=== PATIENT | male | born 1955 | race Caucasian/White ===

== ENCOUNTER 2016-12-07 10:07 | Inpatient (IN) | payer OTHER ==
[~2016-12-07] VITALS: Ht 177.8 cm; Wt 231.0 kg
[~2016-12-07 10:07] MED LIST: ASCO10006 PO; C250T PO; CALC-6 PO; CALC-817 PO; CAPT100T2 PO; CEPH500C PO; CHOL10002 PO; DOXY-233 PO; FISH1CAP15 PO; FLUC150T2 PO; FNT50TD TD; FURO80TA3 PO; GABA800T2 PO; GEMF600T3 PO; GLYB5TAB6 PO; GMFB600T PO; HUM100VI15 SQ; HUM100VI6 SQ; HYDR-2890 PO; HYDR-3820 PO; INDM25C PO; INSULIN NPH SQ; IPRA3AMP INH; KCL20TCR PO; LEVO750T39 PO; MELA1TAB15 PO; MELO15TA39 PO; METF1000 PO; MORP-33 PO; MORP15TA PO; MORP15TA8 PO; MTF500T PO; MULT-608 PO; MULT1TAB69 PO; NEBU-113 MC; OMEG-109 PO; POTA10TA10 PO; POTASSIUM CHL PO; REG; VITA1TAB98 PO; VITA400T7 PO; VITAMIN B COMPLEX; [UNRECOGNIZED DRUG - OTHER]; [UNRECOGNIZED DRUG - OTHER] SQ
[2016-12-07 10:42] LABS: BASOPHILS % (AUTO) 1 % (0-10); EOSINOPHILS # (AUTO) 0.4 10^3/uL (0.0-0.3); EOSINOPHILS % (AUTO) 5 % (0-10); LYMPHOCYTES # (AUTO) 0.8 X 10^3 (1.0-4.0); LYMPHOCYTES % (AUTO) 11 % (12-44); MEAN CORPUSCULAR HEMOGLOBIN 27 PG (25-34); MEAN CORPUSCULAR HGB CONC 28 G/DL (32-36); MEAN CORPUSCULAR VOLUME 94 FL (80-99); MONOCYTES # (AUTO) 0.6 X 10^3 (0.0-1.0); MONOCYTES % (AUTO) 8 % (0-12); NEUTROPHILS # (AUTO) 5.8 X 10^3 (1.8-7.8); NEUTROPHILS % (AUTO) 76 % (42-75); PLATELET COUNT 185 10^3/uL (130-400); RED BLOOD COUNT 4.71 10^6/uL (4.35-5.85); RED CELL DISTRIBUTION WIDTH 14.7 % (10.0-14.5); WHITE BLOOD COUNT 7.7 10^3/uL (4.3-11.0)
--- NOTE | 2016-12-07 10:52 | Diagnostic Imaging Report ---
INDICATION: Peripheral edema. EXAM: Portable chest at 10:48 AM FINDINGS: There is cardiomegaly. Pulmonary vascularity is normal. The lungs are clear. IMPRESSION: Cardiomegaly without evidence of pulmonary venous hypertension. Dictated by: Dictated on workstation # [id number]
[2016-12-07 11:01] LABS: ALANINE AMINOTRANSFERASE 10 U/L (0-55); ALBUMIN 3.4 GM/DL (3.2-4.5); ANION GAP 10 MMOL/L (5-14); ASPARTATE AMINO TRANSFERASE 15 U/L (5-34); BILIRUBIN,TOTAL 0.6 MG/DL (0.1-1.0); BLOOD UREA NITROGEN 17 MG/DL (7-18); BUN/CREATININE RATIO 14; CALCIUM 8.7 MG/DL (8.5-10.1); CARBON DIOXIDE 33 MMOL/L (21-32); CHLORIDE 96 MMOL/L (98-107); CREATININE SERUM 1.21 MG/DL (0.60-1.30); GFR ESTIMATED > 60; GLUCOSE 150 MG/DL (70-105); POTASSIUM 4.7 MMOL/L (3.6-5.0); SODIUM 139 MMOL/L (135-145); TOTAL PROTEIN 6.6 GM/DL (6.4-8.2)
--- NOTE | 2016-12-07 12:08 | ED Cardiac General ---
History of Present Illness General Chief Complaint: Cardiac/General Problems Stated Complaint: FLUID RETENTION Nursing Triage Note: PT REPORTS INCREASE IN PT SWELLING "RETAINING FLUID". PT HAS HX OF CHF. PT DENIES SOA OR BREATHING DIFFICULTY. PT REPORTS SHE WORKS DURRING THE WEEK AND IS UNABLE TO GIVE PT HIS LASIX WHILE SHE IS AT WORK. Source: patient Exam Limitations: no limitations History of Present Illness Time seen by provider: 12:06 Initial Comments The patient is a morbidly morbidly obese white male. His weight is in excess of 470 pounds. He is known to have cardiomegaly and was previously said to have congestive heart failure. As far as he and his no there has been no previous myocardial infarction. He has Lasix to use at home but usually it is only done on the weekend as his works during the week. She believes that he has gained 20 or more pounds recently. He reports that he has a port and has been leaking fluid from the insertion site this past week. Timing/Duration: other Location: other (universal edema) Activities at Onset: none Prior CP/Workup: other (past history of congestive failure but no history of myocardial infarction) Associated Systoms: Shortness of Air, Weakness Allergies and Home Medications Allergies Coded Allergies: aspirin (Verified Adverse Reaction, Intermediate, CHEST PAIN, 01/22/13) Home Medications Ascorbic Acid 1,000 Mg Tablet, 1,000 MG PO DAILY, (Reported) Calcium Carbonate/Vitamin D3 1 Each Tablet, 1 TAB PO DAILY, (Reported) Captopril 100 Mg Tablet, 100 MG PO BID, (Reported) Furosemide 80 Mg Tablet, 80 MG PO DAILY, (Reported) Gabapentin 800 Mg Tablet, 800 MG PO TID, (Reported) Gemfibrozil 600 Mg Tablet, 600 MG PO BID, (Reported) Glyburide 5 Mg Tablet, 5 MG PO BID, (Reported) Hydrocodone/Acetaminophen 1 Each Tablet, 2 TAB PO Q6H PRN for PAIN, (Reported) Insulin NPH Hum/Reg Insulin Hm 100 Unit/1 Ml Vial, 100 UNITS SQ HS, (Reported) Insulin NPH Hum/Reg Insulin Hm 100 Unit/1 Ml Vial, 100 UNIT SQ DAILY PRN for BS ABOVE 150, (Reported) Ipratropium/Albuterol Sulfate 3 Ml Ampul.neb, 3 ML INH RTQ4HR PRN for SHORTNESS OF BREATH, #30 Prescribed by: NITO TREVIÑO on 12/28/15 1046 Levofloxacin 750 Mg Tablet, 750 MG PO DAILY@1100, #5 Prescribed by: NITO TREVIÑO on 12/28/15 1046 Melatonin/Pyridoxine 1 Each Tablet, 10 MG PO HS, (Reported) TAKES 2 (5MG) TABLETS Meloxicam 15 Mg Tablet, 15 MG PO DAILY, (Reported) Metformin HCl 1,000 Mg Tablet, 1,000 MG PO BID, (Reported) Morphine Sulfate 15 Mg Tablet, 15 MG PO BID PRN for PAIN, (Reported) Multivitamin 1 Each Tablet, 1 TAB PO DAILY, (Reported) [place]-3 Fatty Acids/Fish Oil 1 Each Capsule, 1,200 MG PO DAILY, (Reported) Potassium Chloride 10 Meq Tablet.er, 10 MEQ PO DAILY, (Reported) Review of Systems Constitutional: see HPI EENTM: No Symptoms Reported Respiratory: Shortness of Air, SOA With Exertion, SOA at Rest Cardiovascular: No Symptoms Reported Gastrointestinal: No Symptoms Reported Genitourinary: No Symptoms Reported Musculoskeletal: no symptoms reported Skin: no symptoms reported Psychiatric/Neurological: No Symptoms Reported Endocrine: No Symptoms Reported Hematologic/Lymphatic: No Symptoms Reported Past Uktehgv-Hwgvxq-Mrmeyh Hx Patient Social History Alcohol Use: Denies Use Recreational Drug Use: No Smoking Status: Former Smoker Recent Foreign Travel: No Contact w/Someone Who Travel: No Recent Infectious Disease Expo: No Recent Hopitalizations: Yes (SEPTEMBER 11) Immunizations Up To Date Tetanus Booster (TDap): Unknown PED Vaccines UTD: Yes Surgeries HX 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) Surgeries: Ear Surgery, Tonsillectomy Respiratory Hx Respiratory Disorders: No Respiratory Disorders: COPD Cardiovascular Hx Cardiac Disorders: Yes Cardiac Disorders: Chronic Edema/Swelling, High Cholesterol, Hypertension Neurological Hx Neurological Disorders: Yes (NEUROPATHY FINGERS/FEET) Neurological Disorders: Neuropathy Reproductive System Hx Reproductive Disorders: No Sexually Transmitted Disease: No HIV/AIDS: No Genitourinary Hx Genitourinary Disorders: No Genitourinary Disorders: UTI-Chronic Gastrointestinal Hx Gastrointestinal Disorders: Yes (HX OF CDIFF LAST ADMISSION) Gastrointestinal Disorders: Abdominal Hernia Musculoskeletal Hx Musculoskeletal Disorders: Yes (HERINATED CERVICAL DISK, CHRONIC BILATERAL KNEE PAIN ) Musculoskeletal Disorders: Arthritis Endocrine Hx Endocrine Disorders: Yes (TYPE II; MORBID OBESITY) Endocrine Disorders: Diabetes, Insulin dep HEENT HX ENT Disorders: No (WEARS READING GLASSES) Cancer Hx Cancer: No Psychosocial Hx Psychiatric Problems: No Integumentary HX Skin/Integumentary Disorder: Yes (CELLULITIS OF LEGS AND PANNUS ) Blood Transfusions Hx Blood Disorders: No Family Medical History Significant Family History: Heart Disease, Diabetes, Hypertension Family Medial History: Cardiovascular disease 19 MOTHER Diabetes mellitus 19 MOTHER FH: stomach cancer 19 FATHER Hypercholesterolemia Hypertension 19 MOTHER Kidney disease Myocardial infarction 19 MOTHER Osteoporosis 19 FATHER Physical Exam Vital Signs Vital Sign - Last 12Hours 12/07/16 11:32 Temp 98.0 Pulse 100 Resp 18 B/P (MAP) 133/69 Pulse Ox 97 O2 Delivery Nasal Cannula O2 Flow Rate 4.00 Capillary Refill : Less Than 3 Seconds General Appearance: Moderate Distress HEENT: Normal ENT Inspection Neck: Full Range of Motion, Normal Inspection, Non Tender Respiratory: Chest Non Tender, No Accessory Muscle Use, No Respiratory Distress , Accessory Muscle Use, Rales, Other (hugely obese breath sounds are very poorly heard respirations appear to be shallow) Cardiovascular: Normal Peripheral Pulses, Other (unable to hear heart sounds) Gastrointestinal: Other (the abdomen is huge and tight. There is bronzy discoloration and alligator skin over the dependent portion.) Neurologic/Psychiatric: Other (the lower extremities are tightly swollen. There appears to be 4+ edema. The skin is bronzy to the knees. Again noted is alligator skin) Lymphatic: No Adenopathy Progress/Results/Core Measures Results/Orders Lab Results Laboratory Tests Test 12/07/16 10:36 Range/Units White Blood Count 7.7 4.3-11.0 10^3/uL Red Blood Count 4.71 4.35-5.85 10^6/uL Hemoglobin 12.6 L 13.3-17.7 G/DL Hematocrit 44 40-54 % Mean Corpuscular Volume 94 80-99 FL Mean Corpuscular Hemoglobin 27 25-34 PG Mean Corpuscular Hemoglobin Concent 28 L 32-36 G/DL Red Cell Distribution Width 14.7 H 10.0-14.5 % Platelet Count 185 130-400 10^3/uL Mean Platelet Volume 11.0 H 7.4-10.4 FL Neutrophils (%) (Auto) 76 H 42-75 % Lymphocytes (%) (Auto) 11 L 12-44 % Monocytes (%) (Auto) 8 0-12 % Eosinophils (%) (Auto) 5 0-10 % Basophils (%) (Auto) 1 0-10 % Neutrophils # (Auto) 5.8 1.8-7.8 X 10^3 Lymphocytes # (Auto) 0.8 L 1.0-4.0 X 10^3 Monocytes # (Auto) 0.6 0.0-1.0 X 10^3 Eosinophils # (Auto) 0.4 H 0.0-0.3 10^3/uL Basophils # (Auto) 0.0 0.0-0.1 10^3/uL Sodium Level 139 135-145 MMOL/L Potassium Level 4.7 3.6-5.0 MMOL/L Chloride Level 96 L 98-107 MMOL/L Carbon Dioxide Level 33 H 21-32 MMOL/L Anion Gap 10 5-14 MMOL/L Blood Urea Nitrogen 17 7-18 MG/DL Creatinine 1.21 0.60-1.30 MG/DL Estimat Glomerular Filtration Rate > 60 BUN/Creatinine Ratio 14 Glucose Level 150 H 70-105 MG/DL Calcium Level 8.7 8.5-10.1 MG/DL Total Bilirubin 0.6 0.1-1.0 MG/DL Aspartate Amino Transf (AST/SGOT) 15 5-34 U/L Alanine Aminotransferase (ALT/SGPT) 10 0-55 U/L Alkaline Phosphatase 69 40-136 U/L Total Protein 6.6 6.4-8.2 GM/DL Albumin 3.4 3.2-4.5 GM/DL My Orders Orders - NATI LARSEN MD Cbc With Automated Diff (12/07/16 10:30) Comprehensive Metabolic Panel (12/07/16 10:30) Ua Culture If Indicated (12/07/16 10:30) Chest 1 View, Ap/Pa Only (12/07/16 10:30) Vital Signs/I&O Vital Sign - Last 12Hours 12/07/16 11:32 Temp 98.0 Pulse 100 Resp 18 B/P (MAP) 133/69 Pulse Ox 97 O2 Delivery Nasal Cannula O2 Flow Rate 4.00 Blood Pressure Mean: 90 Departure Communication Progress Notes Chest x-ray shows cardiomegaly. There is no apparent congestive failure. There is significant breast shadowing on both sides Discussed with Dr. Treviño at 1225. The patient will be admitted for IV Lasix therapy. Impression Impression: Primary Impression: Anasarca Disposition: ADMITTED INPATIENT Condition: Stable/Unchanged Decision to Admit Reason: Admit from ER (General) Decision to Admit/Date: Dec 07, 2016 Time/Decision to Admit Time: 12:36 Departure-Patient Inst. Referrals: NITO TREVIÑO MD (PCP) Primary Care Physician TJ HOUSE DO (Family) Primary Care Physician NATI LARSEN MD Dec 07, 2016 12:08
--- NOTE | 2016-12-07 12:48 | History & Physicial ---
History of Present Illness History of Present Illness Reason for visit/HPI PT IS A 61 Y/O MALE WHO IS KNOWN TO ME FROM CLINIC. HE PRESENTS TO THE HOSPITAL TODAY WITH WEAKNESS, FLUID OVERLOAD, AND PER HIS , WEIGHT GAIN OVER 20#. HE REPORTEDLY HAS HAD WEEPING OF FLUID FROM HIS LEGS, ABDOMEN. Date of Admission Dec 07, 2016 at 12:27 Date Seen by Provider: Dec 07, 2016 Time Seen by Provider: 12:45 I consulted on this patient on 12/07/16 12:42 Attending Physician Nito Treviño MD Admitting Physician Nito Treviño MD Consult Allergies and Home Medications Allergies Coded Allergies: aspirin (Verified Adverse Reaction, Intermediate, CHEST PAIN, 01/22/13) Home Medications Ascorbic Acid 1,000 Mg Tablet, 1,000 MG PO DAILY, (Reported) Calcium Carbonate/Vitamin D3 1 Each Tablet, 1 TAB PO DAILY, (Reported) Captopril 100 Mg Tablet, 100 MG PO BID, (Reported) Furosemide 80 Mg Tablet, 80 MG PO DAILY, (Reported) Gabapentin 800 Mg Tablet, 800 MG PO TID, (Reported) Gemfibrozil 600 Mg Tablet, 600 MG PO BID, (Reported) Glyburide 5 Mg Tablet, 5 MG PO BID, (Reported) Hydrocodone/Acetaminophen 1 Each Tablet, 2 TAB PO Q6H PRN for PAIN, (Reported) Insulin NPH Hum/Reg Insulin Hm 100 Unit/1 Ml Vial, 100 UNITS SQ HS, (Reported) Insulin NPH Hum/Reg Insulin Hm 100 Unit/1 Ml Vial, 100 UNIT SQ DAILY PRN for BS ABOVE 150, (Reported) Ipratropium/Albuterol Sulfate 3 Ml Ampul.neb, 3 ML INH RTQ4HR PRN for SHORTNESS OF BREATH, #30 Prescribed by: NITO TREVIÑO on 12/28/15 1046 Levofloxacin 750 Mg Tablet, 750 MG PO DAILY@1100, #5 Prescribed by: NITO TREVIÑO on 12/28/15 1046 Melatonin/Pyridoxine 1 Each Tablet, 10 MG PO HS, (Reported) TAKES 2 (5MG) TABLETS Meloxicam 15 Mg Tablet, 15 MG PO DAILY, (Reported) Metformin HCl 1,000 Mg Tablet, 1,000 MG PO BID, (Reported) Morphine Sulfate 15 Mg Tablet, 15 MG PO BID PRN for PAIN, (Reported) Multivitamin 1 Each Tablet, 1 TAB PO DAILY, (Reported) [place]-3 Fatty Acids/Fish Oil 1 Each Capsule, 1,200 MG PO DAILY, (Reported) Potassium Chloride 10 Meq Tablet.er, 10 MEQ PO DAILY, (Reported) Past Egrxrfp-Lxgasn-Oxrrgf Hx Patient Social History Marrital Status: Number of Children: 1 Number of living children: 1 Living Status: LIVES AT HOME WITH SPOUSE Employed/Student: unemployed Alcohol Use: Denies Use Recreational Drug Use: No Smoking Status: Former Smoker 2nd Hand Smoke Exposure: No Physical Abuse Screen: No Sexual Abuse: No Recent Foreign Travel: No Contact w/other who traveled: No Recent Hopitalizations: Yes (SEPTEMBER 11) Recent Infectious Disease Expo: No Immunizations Up To Date Tetanus Booster (TDap): Unknown Surgeries HX 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) Surgeries: Ear Surgery, Tonsillectomy Respiratory Hx Respiratory Disorders: No Cardiovascular Hx Cardiovascular Disorders: Yes Cardiac Disorders: Chronic Edema/Swelling, High Cholesterol, Hypertension Neurological Hx Neurological Disorders: Yes (NEUROPATHY FINGERS/FEET) Neurological Disorders: Neuropathy Reproductive System Hx Reproductive Disorders: No Sexually Transmitted Disease: No HIV/AIDS: No Genitourinary Hx Genitourinary Disorders: No Genitourinary Disorders: UTI-Chronic Gastrointestinal Hx Gastrointestinal Disorders: Yes (HX OF CDIFF LAST ADMISSION) Gastrointestinal Disorders: Abdominal Hernia Musculoskeletal Hx Musculoskeletal Disorders: Yes (HERINATED CERVICAL DISK, CHRONIC BILATERAL KNEE PAIN ) Musculoskeletal Disorders: Arthritis Endocrine Hx Endocrine Disorders: Yes (TYPE II; MORBID OBESITY) Endocrine Disorders: Diabetes, Insulin dep HEENT HX ENT Disorders: Yes (WEARS READING GLASSES) Loss of Vision: Denies Hearing Impairment: Denies Cancer Hx Cancer: No Psychosocial Hx Psychiatric Problems: No Integumentary HX Skin/Integumentary Disorder: Yes (CELLULITIS OF LEGS AND PANNUS ) Blood Transfusions Hx Blood Disorders: No Reviewed Nursing Assessment Reviewed/Agree w Nursing PMH: Yes Family Medical History Significant Family History: Heart Disease, Diabetes, Hypertension Family Hx: Cardiovascular disease 19 MOTHER Diabetes mellitus 19 MOTHER FH: stomach cancer 19 FATHER Hypercholesterolemia Hypertension 19 MOTHER Kidney disease Myocardial infarction 19 MOTHER Osteoporosis 19 FATHER Constitutional: No chills, No fever, malaise, weakness EENTM: No hoarseness, No throat pain Respiratory: No cough, dyspnea on exertion, short of breath Cardiovascular: No chest pain, edema Gastrointestinal: No abdominal pain, No constipation, No diarrhea, No nausea, No vomiting Genitourinary: other Musculoskeletal: back pain, joint pain, muscle weakness Skin: other Psychiatric/Neurological: Denies Anxiety, Denies Depressed Physical Exam Vital Signs Vital Sign - Last 12Hours 12/07/16 11:32 Temp 98.0 Pulse 100 Resp 18 B/P (MAP) 133/69 Pulse Ox 97 O2 Delivery Nasal Cannula O2 Flow Rate 4.00 Capillary Refill : Less Than 3 Seconds General Appearance: Mild Distress, Obese Eyes: Bilateral Eye Normal Inspection HEENT: PERRL/EOMI, Pharynx Normal Neck: Full Range of Motion, Supple Respiratory: Chest Non Tender, Lungs Clear, Normal Breath Sounds, No Accessory Muscle Use Cardiovascular: Regular Rate, Rhythm, No Edema Gastrointestinal: Normal Bowel Sounds, Non Tender, Soft, Other (EDEMA BILATERAL LOWER EXTREMITIES UP TO MID ABDOMEN 3+ PITTING) Rectal: Deferred Extremity: Pedal Edema Neurologic/Psychiatric: Alert, Oriented x3, No Motor/Sensory Deficits, Normal Mood/Affect Skin: Warm/Dry, Erythema Lymphatic: No Adenopathy Assessment/Plan Assessment and Plan ANASARCA FLUID OVERLOAD LOWER EXTREMITY EDEMA RENAL INSUFFICIENCY DIABETES MELLITUS HYPERTENSION SEVERE MORBID OBESITY ANEMIA ANASARCA WITH GROSS FLUID OVERLOAD AND LOWER EXTREMITY EDEMA - PT TO HAVE LASIX 40MG TODAY, TOMORROW MORNING, AND WILL HAVE STRICT I/O DAILY WEIGHTS. RENAL INSUFFICIENCY - MONITOR RENAL FUNCTION, HOLD CAPTOPRIL. DIABETES MELLITUS - SLIDING SCALE INSULIN. MONITOR SYMPTOMS - ADA DIET. HYPERTENSION - RESTART HOME MEDICATIONS EXCEPT FOR JOSH INHIBITOR DUE TO PATIENTS ACUTE RENAL INSUFFICIENCY. ANEMIA - MONITOR SYMPTOMS WHILE ON LOVENOX. GI PROPHYLAXIS - PPI - START ON PROTONIX DVT PROPHYLAXIS - START SCD'S AND LOVENOX. Problems: Admission Diagnosis ANASARCA FLUID OVERLOAD LOWER EXTREMITY EDEMA RENAL INSUFFICIENCY DIABETES MELLITUS HYPERTENSION SEVERE MORBID OBESITY ANEMIA NITO TREVIÑO MD Dec 07, 2016 12:48
[2016-12-07] MEDS ORDERED: FUROSEMIDE 40 MG/4 ML INJ (LASIX) IVP NR (13:28)
[2016-12-07] MEDS: ENOXAPARIN 40 MG/0.4 ML (LOVENOX) SYR SC SCH (15:29)
[2016-12-07] MEDS: HYDROcodone/APAP 10 MG/325 MG (LORTAB) TAB PO PRN ×2 (15:30→20:18)
[2016-12-07 16:00] VITALS: BP 137/65
[2016-12-07] MEDS: inSUlin (REGULAR) HUMAN 1 UNIT/0.01 ML (CHARGE PER UNIT) SC SCH ×2 (16:32→21:20)
[2016-12-07 20:00] VITALS: BP 163/78
[2016-12-07] MEDS: meTOprolol TARTRATE 25 MG (LOPRESSOR) TABLET PO SCH (20:18)
[2016-12-07] MEDS: GABAPENTIN 600 MG (NEURONTIN) TAB PO SCH (20:18)
[2016-12-07 23:55] VITALS: BP 135/72
[2016-12-08] MEDS: HYDROcodone/APAP 10 MG/325 MG (LORTAB) TAB PO PRN ×3 (02:24→15:11)
[2016-12-08 04:15] VITALS: BP 127/72
[2016-12-08 05:42] LABS: RED BLOOD COUNT 4.49 10^6/uL (4.35-5.85); RED CELL DISTRIBUTION WIDTH 14.6 % (10.0-14.5); WHITE BLOOD COUNT 8.2 10^3/uL (4.3-11.0)
[2016-12-08 06:10] LABS: ALANINE AMINOTRANSFERASE 8 U/L (0-55); ALBUMIN 3.2 GM/DL (3.2-4.5); ANION GAP 7 MMOL/L (5-14); ASPARTATE AMINO TRANSFERASE 13 U/L (5-34); BILIRUBIN,TOTAL 0.7 MG/DL (0.1-1.0); BLOOD UREA NITROGEN 15 MG/DL (7-18); BUN/CREATININE RATIO 15; CALCIUM 8.7 MG/DL (8.5-10.1); CARBON DIOXIDE 36 MMOL/L (21-32); CHLORIDE 95 MMOL/L (98-107); CREATININE SERUM 1.02 MG/DL (0.60-1.30); GFR ESTIMATED > 60; GLUCOSE 116 MG/DL (70-105); POTASSIUM 4.4 MMOL/L (3.6-5.0); SODIUM 138 MMOL/L (135-145); TOTAL PROTEIN 6.5 GM/DL (6.4-8.2)
[2016-12-08] MEDS: inSUlin (REGULAR) HUMAN 1 UNIT/0.01 ML (CHARGE PER UNIT) SC SCH ×4 (06:29→21:40)
[2016-12-08 08:00] VITALS: BP 127/82
[2016-12-08] MEDS: meTOprolol TARTRATE 25 MG (LOPRESSOR) TABLET PO SCH ×2 (08:29→21:39)
[2016-12-08] MEDS: GABAPENTIN 600 MG (NEURONTIN) TAB PO SCH ×2 (08:29→14:23)
[2016-12-08] MEDS ORDERED: FUROSEMIDE 40 MG/4 ML INJ (LASIX) IVP SCH (09:00)
--- NOTE | 2016-12-08 09:06 | Progress Note (SOAP) ---
Subjective Date Seen by Provider: Dec 08, 2016 Time Seen by Provider: 09:20 Subjective/Events-last exam PT IS A 61 Y/O MALE WHO IS KNOWN TO ME FROM CLINIC AND PREVIOUS HOSPITALIZATIONS. NURSING STAFF REPORTS THAT DR. ZARAGOZA WAS UNABLE TO PLACE A NICHOLS DUE TO PATIENT' S MORBID OBESITY. WHEN I EVALUATED PATIENT THIS MORNING - HE WAS SHAKING WITH CHILLS IN HIS ROOM - HIS REPORTS THAT HE HAS STARTED TO DEVELOP A FEVER AROUND 8 AM Review of Systems General: Chills, Fatigue, Malaise Pulmonary: Dyspnea, No Cough Cardiovascular: No: Chest Pain, Palpitations Gastrointestinal: No: Abdominal Pain, Nausea Genitourinary: Incontinence Musculoskeletal: back pain, leg pain Neurological: Weakness Objective Exam Vital Signs Date Time Temp Pulse Resp B/P (MAP) Pulse Ox O2 Delivery O2 Flow Rate FiO2 12/08/16 08:29 99.5 12/08/16 08:00 99.5 110 24 127/82 97 Nasal Cannula 2.00 12/08/16 04:15 98.8 79 20 127/72 93 Nasal Cannula 2.00 2.00 12/07/16 23:55 98.1 86 135/72 93 Nasal Cannula 2.00 12/07/16 21:03 Nasal Cannula 2.00 12/07/16 20:50 Nasal Cannula 2.00 12/07/16 20:00 98.6 93 20 163/78 95 Room Air 12/07/16 16:00 97.1 86 20 137/65 97 Nasal Cannula 2.00 12/07/16 15:23 Nasal Cannula 2.00 12/07/16 14:32 98.0 98 18 97 4.00 12/07/16 11:32 98.0 100 18 133/69 97 Nasal Cannula 4.00 I & O 12/08/16 07:00 Intake Total 1390 ml Balance 1390 ml Capillary Refill : Less Than 3 Seconds General Appearance: WD/WN, Moderate Distress (DUE TO ACUTE ILLNESS WITH FEVER/ CHILLS) Respiratory: Chest Non Tender, Lungs Clear, Normal Breath Sounds Cardiovascular: Regular Rate, Rhythm Gastrointestinal: normal bowel sounds, non tender, other (OBESE ABDOMEN) Extremity: Pedal Edema (FROM FEET UP TO CHEST) Neurologic/Psychiatric: Alert, Other (PT OPENS EYES TO VOICE) Skin: Warm/Dry Results Lab Laboratory Tests 12/07/16 10:36: White Blood Count 7.7, Red Blood Count 4.71, Hemoglobin 12.6L, Hematocrit 44, Mean Corpuscular Volume 94, Mean Corpuscular Hemoglobin 27, Mean Corpuscular Hemoglobin Concent 28L, Red Cell Distribution Width 14.7H, Platelet Count 185, Mean Platelet Volume 11.0H, Neutrophils (%) (Auto) 76H, Lymphocytes (%) (Auto) 11L, Monocytes (%) (Auto) 8, Eosinophils (%) (Auto) 5, Basophils (%) (Auto) 1, Neutrophils # (Auto) 5.8, Lymphocytes # (Auto) 0.8L, Monocytes # (Auto) 0.6, Eosinophils # (Auto) 0.4H, Basophils # (Auto) 0.0, Sodium Level 139, Potassium Level 4.7, Chloride Level 96L, Carbon Dioxide Level 33H, Anion Gap 10, Blood Urea Nitrogen 17, Creatinine 1.21, Estimat Glomerular Filtration Rate > 60, BUN/ Creatinine Ratio 14, Glucose Level 150H, Calcium Level 8.7, Total Bilirubin 0.6 , Aspartate Amino Transf (AST/SGOT) 15, Alanine Aminotransferase (ALT/SGPT) 10, Alkaline Phosphatase 69, Total Protein 6.6, Albumin 3.4 12/07/16 15:45: Glucometer 100 12/07/16 21:06: Glucometer 125H 12/08/16 05:20: White Blood Count 8.2, Red Blood Count 4.49, Hemoglobin 12.1L, Hematocrit 42, Mean Corpuscular Volume 93, Mean Corpuscular Hemoglobin 27, Mean Corpuscular Hemoglobin Concent 29L, Red Cell Distribution Width 14.6H, Platelet Count 183, Mean Platelet Volume 11.0H, Sodium Level 138, Potassium Level 4.4, Chloride Level 95L, Carbon Dioxide Level 36H, Anion Gap 7, Blood Urea Nitrogen 15, Creatinine 1.02, Estimat Glomerular Filtration Rate > 60, BUN/Creatinine Ratio 15, Glucose Level 116H, Calcium Level 8.7, Total Bilirubin 0.7, Aspartate Amino Transf (AST/SGOT) 13, Alanine Aminotransferase (ALT/SGPT) 8, Alkaline Phosphatase 61, Total Protein 6.5, Albumin 3.2 12/08/16 06:03: Glucometer 119H Assessment/Plan Assessment/Plan Assess & Plan/Chief Complaint ANASARCA SEPSIS - FEVER OF UNKNOWN ORIGIN FLUID OVERLOAD LOWER EXTREMITY EDEMA RENAL INSUFFICIENCY DIABETES MELLITUS HYPERTENSION SEVERE MORBID OBESITY ANEMIA ANASARCA WITH GROSS FLUID OVERLOAD AND LOWER EXTREMITY EDEMA - PT TO HAVE LASIX 40MG BID STARTED TODAY, AND WILL HAVE STRICT I/O DAILY WEIGHTS. SEPSIS - FEVER - LACTIC ACID MILDLY ELEVATED - CHECK BLOOD CULTURE, CHEST XRAY WAS NEGATIVE IN ER - UNABLE TO OBTAIN URINE - CANNOT CATH PATIENT - DR. ZARAGOZA ATTEMPTED WITHOUT SUCCESS. STARTED ON ZOSYN AND VANCOMYCIN. RENAL INSUFFICIENCY - MONITOR RENAL FUNCTION, HOLD CAPTOPRIL. DIABETES MELLITUS - SLIDING SCALE INSULIN. MONITOR SYMPTOMS - ADA DIET. HYPERTENSION - RESTART HOME MEDICATIONS EXCEPT FOR JOSH INHIBITOR DUE TO PATIENTS ACUTE RENAL INSUFFICIENCY. ANEMIA - MONITOR SYMPTOMS WHILE ON LOVENOX. GI PROPHYLAXIS - PPI - START ON PROTONIX DVT PROPHYLAXIS - START SCD'S AND LOVENOX. Clinical Quality Measures DVT/VTE Risk/Contraindication: Risk Factor Score Per Nursin RFS Level Per Nursing on Admit: 4+=Very High NITO NICOLAS MD Dec 08, 2016 09:06
[2016-12-08] MEDS ORDERED: ACETAMINOPHEN 500 MG TAB (TYLENOL) ONE (09:40)
[2016-12-08] MEDS ORDERED: cefTRIAXone INJECTION 1,000 MG in NS (IVPB) 50 ML IV NR (10:00)
[2016-12-08] MEDS ORDERED: ACETAMINOPHEN 500 MG TAB (TYLENOL) PO PRN (10:00)
[2016-12-08] MEDS ORDERED: KETOROLAC 30 MG/ML VIAL IVP NR (11:00)
[2016-12-08] MEDS ORDERED: VANCOMYCIN INJECTION 1,000 MG in NS (IVPB) 250 ML IV SCH (11:15)
[2016-12-08] MEDS ORDERED: NS (IVPB) 0 ML ONE (11:19)
[2016-12-08] MEDS ORDERED: PIPERACILLIN/TAZO 4.5 GM VIAL (ZOSYN) IV ONE (11:19)
--- NOTE | 2016-12-08 11:19 | CONSULTATION REPORT ---
DATE OF CONSULTATION: 12/08/2016 ATTENDING PHYSICIAN: Dr. Treviño. SUMMARY: 61-year-old white man, morbidly obese admitted by Dr. Treviño with anasarca. He was started on diuresis. Was unable to insert the Neville catheter, I was consulted for that. The patient is morbidly obese and the penis is retracted inside his body. I cannot even see it or feel it. The patient denies any voiding symptoms whether of the hospital or at home and that was substantiated by his as well. He has been voiding in the hospital here. IMPRESSION: Morbid obesity with inability to insert the Neville catheter. PLAN: As long as the patient is voiding on his own will leave him alone because he does need a special table on which he will be put in lithotomy position to attempt at catheterization and if we traumatize the urethra then things will go to the worse, and need general anesthesia which is not recommended for this patient. As long as he voids okay, we will leave him alone. Otherwise, if he goes to worse, I would recommend that he be transferred to a tertiary facility Job ID: [id number] Dictated Date: 12/08/2016 09:24:03 Contact Lens Curve Grinder Date: 12/08/2016 11:10:20/destin MONTOYA
[2016-12-08] MEDS ORDERED: PIPERACILLIN SODIUM/TAZOBACTAM 4.5 GM in NS (IVPB) 100 ML IV NR (11:23)
[2016-12-08] MEDS: NS IV 1000 ML 1,000 ML IV SCH (11:30)
[2016-12-08 11:56] VITALS: BP 141/64
[2016-12-08] MEDS ORDERED: VANCOMYCIN 2000 MG/NS 500 ML IVPB IV SCH ×2 (12:00)
[2016-12-08] MEDS ORDERED: FUROSEMIDE 40 MG/4 ML INJ (LASIX) IVP NR (12:15)
[2016-12-08] MEDS: ENOXAPARIN 40 MG/0.4 ML (LOVENOX) SYR SC SCH (14:23)
[2016-12-08 16:16] VITALS: BP 138/76
[2016-12-08] MEDS: FUROSEMIDE 40 MG/4 ML INJ (LASIX) IVP SCH (17:10)
[2016-12-08] MEDS: PIPERACILLIN SODIUM/TAZOBACTAM 4.5 GM in NS (IVPB) 100 ML IV SCH (17:11)
[2016-12-08 20:57] VITALS: BP 142/70
[2016-12-08] MEDS: GABAPENTIN 400 MG (NEURONTIN) CAP PO SCH (21:38)
[2016-12-08 21:47] VITALS: BP 130/62
[2016-12-08] MEDS: VANCOMYCIN 1,750 MG/NS 500 ML IVPB IV SCH ×2 (23:44)
[2016-12-09 00:15] VITALS: BP 140/71
[2016-12-09] MEDS: PIPERACILLIN SODIUM/TAZOBACTAM 4.5 GM in NS (IVPB) 100 ML IV SCH ×3 (02:20→18:22)
[2016-12-09 04:00] VITALS: BP 146/72
[2016-12-09 06:27] LABS: MEAN PLATELET VOLUME 11.1 FL (7.4-10.4); RED BLOOD COUNT 4.57 10^6/uL (4.35-5.85); RED CELL DISTRIBUTION WIDTH 15.1 % (10.0-14.5); WHITE BLOOD COUNT 14.1 10^3/uL (4.3-11.0)
[2016-12-09] MEDS: FUROSEMIDE 40 MG/4 ML INJ (LASIX) IVP SCH ×2 (06:47→17:28)
[2016-12-09 06:48] LABS: ALBUMIN 3.2 GM/DL (3.2-4.5); BILIRUBIN,TOTAL 1.2 MG/DL (0.1-1.0); CALCIUM 8.5 MG/DL (8.5-10.1); CREATININE SERUM 1.23 MG/DL (0.60-1.30); POTASSIUM 4.6 MMOL/L (3.6-5.0); TOTAL PROTEIN 6.9 GM/DL (6.4-8.2)
[2016-12-09] MEDS: inSUlin (REGULAR) HUMAN 1 UNIT/0.01 ML (CHARGE PER UNIT) SC SCH ×4 (06:55→20:38)
--- NOTE | 2016-12-09 07:38 | Progress Note-Urology ---
Progress Note-Urology Progress Notes/Assess & Plan Progress/Assessment & Plan voiding on his own. no problem. we will see prn Final Diagnosis Morbid obesity with inability to insert bhakta catheter ALAYNA ZARAGOZA MD Dec 09, 2016 7:38 am
[2016-12-09 08:00] VITALS: BP 181/85
--- NOTE | 2016-12-09 08:14 | Progress Note (SOAP) ---
Subjective Date Seen by Provider: Dec 09, 2016 Time Seen by Provider: 08:15 Subjective/Events-last exam PT IS A 61 Y/O MALE WHO IS KNOWN TO ME FROM CLINIC AND HOSPITALIZATIONS. HE PRESENTED WITH FLUID OVERLOAD AND YESTERDAY WAS FOUND TO BE SEPTIC. BLOOD CULTURE REPORT SHOWED GROUP G STREP. TODAY HE STATES THAT HE FEELS WORSE THAN ON ADMISSION. HE STATES THAT HE IS HAVING MORE PAIN IN HIS LEGS AND BACK. Review of Systems General: No Chills, Fatigue HEENT: No Head Aches Pulmonary: Dyspnea, Cough Cardiovascular: No: Chest Pain Gastrointestinal: No: Abdominal Pain, Nausea Genitourinary: No Dysuria Musculoskeletal: back pain, leg pain Neurological: Confusion, Weakness Objective Exam Vital Signs Date Time Temp Pulse Resp B/P (MAP) Pulse Ox O2 Delivery O2 Flow Rate FiO2 12/09/16 08:00 100.1 105 20 181/85 98 OxyMask 7.00 12/09/16 04:00 99.1 98 16 146/72 92 Nasal Cannula 7.00 12/09/16 00:15 99.3 93 20 140/71 98 OxyMask 7.00 12/08/16 21:47 97 130/62 12/08/16 21:00 OxyMask 7.00 12/08/16 20:57 100.4 110 24 142/70 94 OxyMask 2.00 12/08/16 16:16 100.3 100 26 138/76 92 OxyMask 2.00 12/08/16 15:11 101.3 12/08/16 13:44 OxyMask 8.00 12/08/16 11:56 101.3 125 29 141/64 89 Nasal Cannula 2.00 12/08/16 09:50 103.0 12/08/16 08:29 99.5 I & O 12/09/16 07:00 Intake Total 660 ml Balance 660 ml Capillary Refill : Less Than 3 Seconds General Appearance: Mild Distress (DUE TO ILLNESS), Obese Neck: Full Range of Motion, Supple Respiratory: Chest Non Tender, Decreased Breath Sounds Cardiovascular: Regular Rate, Rhythm Gastrointestinal: normal bowel sounds, non tender, soft, no organomegaly, no pulsatile mass Extremity: Pedal Edema (4+PITTING TO ABDOMEN) Neurologic/Psychiatric: Alert, Oriented x3, No Motor/Sensory Deficits, Normal Mood/Affect Skin: Erythema Lymphatic: No Adenopathy Results Lab Laboratory Tests 12/08/16 10:15: Lactic Acid Level 2.40*H 12/08/16 10:57: Glucometer 135H 12/08/16 12:30: Lactic Acid Level 1.08 12/08/16 15:59: Glucometer 128H 12/08/16 16:57: Lactic Acid Level 1.00 12/08/16 21:08: Glucometer 166H 12/09/16 05:39: Glucometer 151H 12/09/16 05:55: White Blood Count 14.1H, Red Blood Count 4.57, Hemoglobin 12.3L, Hematocrit 43, Mean Corpuscular Volume 94, Mean Corpuscular Hemoglobin 27, Mean Corpuscular Hemoglobin Concent 29L, Red Cell Distribution Width 15.1H, Platelet Count 174, Mean Platelet Volume 11.1H, Sodium Level 138, Potassium Level 4.6, Chloride Level 95L, Carbon Dioxide Level 30, Anion Gap 13, Blood Urea Nitrogen 20H, Creatinine 1.23, Estimat Glomerular Filtration Rate 60, BUN/Creatinine Ratio 16 , Glucose Level 157H, Calcium Level 8.5, Total Bilirubin 1.2H, Aspartate Amino Transf (AST/SGOT) 18, Alanine Aminotransferase (ALT/SGPT) 11, Alkaline Phosphatase 58, Total Protein 6.9, Albumin 3.2 Microbiology 12/08/16 Blood Culture - Preliminary, Resulted Strep, Beta Hemolytic Group G Assessment/Plan Assessment/Plan Assess & Plan/Chief Complaint ANASARCA SEPSIS - BLOOD CULTURE POSITIVE FOR GROUP G STREP FLUID OVERLOAD LOWER EXTREMITY EDEMA RENAL INSUFFICIENCY DIABETES MELLITUS HYPERTENSION SEVERE MORBID OBESITY ANEMIA ANASARCA WITH GROSS FLUID OVERLOAD AND LOWER EXTREMITY EDEMA - PT TO HAVE LASIX 40MG BID STARTED TODAY, AND WILL HAVE STRICT I/O DAILY WEIGHTS. SEPSIS - FEVER - LACTIC ACID MILDLY ELEVATED - CHECK BLOOD CULTURE, CHEST XRAY WAS NEGATIVE IN ER - UNABLE TO OBTAIN URINE - CANNOT CATH PATIENT - DR. ZARAGOZA ATTEMPTED WITHOUT SUCCESS. STARTED ON ZOSYN AND VANCOMYCIN. RENAL INSUFFICIENCY - MONITOR RENAL FUNCTION, HOLD CAPTOPRIL. DIABETES MELLITUS - SLIDING SCALE INSULIN. MONITOR SYMPTOMS - ADA DIET. HYPERTENSION - RESTART HOME MEDICATIONS EXCEPT FOR JOSH INHIBITOR DUE TO PATIENTS ACUTE RENAL INSUFFICIENCY. ANEMIA - MONITOR SYMPTOMS WHILE ON LOVENOX. GI PROPHYLAXIS - PPI - START ON PROTONIX DVT PROPHYLAXIS - START SCD'S AND LOVENOX. Clinical Quality Measures DVT/VTE Risk/Contraindication: Risk Factor Score Per Nursin RFS Level Per Nursing on Admit: 4+=Very High NITO NICOLAS MD Dec 09, 2016 08:14
[2016-12-09] MEDS ORDERED: cefTRIAXone INJECTION 1,000 MG in NS (IVPB) 50 ML IV SCH (09:00)
[2016-12-09] MEDS: GABAPENTIN 400 MG (NEURONTIN) CAP PO SCH ×4 (09:51→21:30)
[2016-12-09] MEDS: meTOprolol TARTRATE 25 MG (LOPRESSOR) TABLET PO SCH ×3 (09:52→21:30)
[2016-12-09] MEDS: NS IV 1000 ML 1,000 ML IV SCH (09:54)
[2016-12-09 12:00] VITALS: BP 144/77
[2016-12-09] MEDS: ENOXAPARIN 40 MG/0.4 ML (LOVENOX) SYR SC SCH (13:13)
[2016-12-09] MEDS: VANCOMYCIN 1,750 MG/NS 500 ML IVPB IV SCH ×2 (13:51)
[2016-12-09 15:50] VITALS: BP 165/75
[2016-12-09] MEDS: KETOROLAC 15 MG/ML VIAL IVP PRN (17:26)
[2016-12-09] MEDS: FLUCONAZOLE 100 MG/50 ML 50 ML IV SCH (17:34)
[2016-12-09 19:40] VITALS: BP 141/66
[2016-12-09] MEDS ORDERED: KETOROLAC 15 MG/ML VIAL IVP ONE (21:00)
[2016-12-09] MEDS ORDERED: HALOPERIDOL 5 MG/ML (HALDOL) AMP IV ONE (21:00)
[2016-12-10] VITALS (8 sets, daily range): BP systolic 106–148; BP diastolic 54–75
[2016-12-10] MEDS: PIPERACILLIN SODIUM/TAZOBACTAM 4.5 GM in NS (IVPB) 100 ML IV SCH (01:17)
[2016-12-10] MEDS: VANCOMYCIN 1,750 MG/NS 500 ML IVPB IV SCH ×4 (04:34→14:00)
[2016-12-10] MEDS: inSUlin (REGULAR) HUMAN 1 UNIT/0.01 ML (CHARGE PER UNIT) SC SCH ×4 (06:23→21:04)
[2016-12-10] MEDS: FUROSEMIDE 40 MG/4 ML INJ (LASIX) IVP SCH ×2 (06:23→17:48)
[2016-12-10] MEDS: NS IV 1000 ML 1,000 ML IV SCH (06:25)
[2016-12-10 07:02] LABS: MEAN PLATELET VOLUME 11.1 FL (7.4-10.4); RED BLOOD COUNT 4.49 10^6/uL (4.35-5.85); RED CELL DISTRIBUTION WIDTH 15.7 % (10.0-14.5); WHITE BLOOD COUNT 16.6 10^3/uL (4.3-11.0)
[2016-12-10 07:22] LABS: ALANINE AMINOTRANSFERASE 10 U/L (0-55); ANION GAP 8 MMOL/L (5-14); ASPARTATE AMINO TRANSFERASE 17 U/L (5-34); BILIRUBIN,TOTAL 1.1 MG/DL (0.1-1.0); BLOOD UREA NITROGEN 26 MG/DL (7-18); BUN/CREATININE RATIO 23; CALCIUM 8.9 MG/DL (8.5-10.1); CARBON DIOXIDE 36 MMOL/L (21-32); CHLORIDE 94 MMOL/L (98-107); CREATININE SERUM 1.13 MG/DL (0.60-1.30); GFR ESTIMATED > 60; GLUCOSE 130 MG/DL (70-105); POTASSIUM 4.3 MMOL/L (3.6-5.0); SODIUM 138 MMOL/L (135-145); TOTAL PROTEIN 6.5 GM/DL (6.4-8.2)
--- NOTE | 2016-12-10 08:24 | Progress Note (SOAP) ---
Subjective Date Seen by Provider: Dec 10, 2016 Time Seen by Provider: 08:24 Subjective/Events-last exam PT STILL CONFUSED TODAY, STAFF REPORTS THAT HE WAS HAVING CONFUSION LAST NIGHT AND HAVING INCREASED PAIN IN HIS LEGS. Review of Systems General: No Chills, Fatigue, Malaise HEENT: No Head Aches Pulmonary: No Cough Cardiovascular: No: Chest Pain Gastrointestinal: No: Abdominal Pain, Nausea Genitourinary: Incontinence Neurological: Weakness Objective Exam Vital Signs Date Time Temp Pulse Resp B/P (MAP) Pulse Ox O2 Delivery O2 Flow Rate FiO2 12/10/16 07:43 98.8 103 20 135/75 94 OxyMask 12/10/16 04:05 99.4 100 16 148/71 92 Nasal Cannula 7.00 12/10/16 04:00 99.4 100 16 148/71 92 Nasal Cannula 7.00 12/10/16 00:45 99.5 91 16 139/71 94 OxyMask 7.00 12/09/16 21:30 98 OxyMask 6.00 12/09/16 21:00 OxyMask 7.00 12/09/16 19:40 99.5 100 20 141/66 98 OxyMask 7.00 12/09/16 15:50 98.2 97 22 165/75 96 OxyMask 7.00 12/09/16 15:37 OxyMask 7.00 12/09/16 12:00 101.5 92 20 144/77 96 OxyMask 7.00 12/09/16 09:00 OxyMask 7.00 I & O 12/10/16 07:00 Intake Total 2520 ml Balance 2520 ml Capillary Refill : Less Than 3 Seconds General Appearance: No Apparent Distress, WD/WN HEENT: PERRL/EOMI Neck: Supple Respiratory: Chest Non Tender, Decreased Breath Sounds Cardiovascular: Regular Rate, Rhythm Gastrointestinal: normal bowel sounds, non tender, soft Extremity: Pedal Edema Neurologic/Psychiatric: Alert, Oriented x3 Skin: Erythema Lymphatic: No Adenopathy Results Lab Laboratory Tests 12/09/16 10:53: Glucometer 163H 12/09/16 15:52: Glucometer 142H 12/09/16 20:28: Glucometer 151H 12/10/16 05:19: Glucometer 146H 12/10/16 06:25: White Blood Count 16.6H, Red Blood Count 4.49, Hemoglobin 12.0L, Hematocrit 43, Mean Corpuscular Volume 95, Mean Corpuscular Hemoglobin 27, Mean Corpuscular Hemoglobin Concent 28L, Red Cell Distribution Width 15.7H, Platelet Count 172, Mean Platelet Volume 11.1H, Sodium Level 138, Potassium Level 4.3, Chloride Level 94L, Carbon Dioxide Level 36H, Anion Gap 8, Blood Urea Nitrogen 26H, Creatinine 1.13, Estimat Glomerular Filtration Rate > 60, BUN/Creatinine Ratio 23, Glucose Level 130H, Calcium Level 8.9, Total Bilirubin 1.1H, Aspartate Amino Transf (AST/SGOT) 17, Alanine Aminotransferase (ALT/SGPT) 10, Alkaline Phosphatase 61, Total Protein 6.5, Albumin 3.0L Microbiology 12/08/16 Blood Culture - Preliminary, Resulted No growth Assessment/Plan Assessment/Plan Assess & Plan/Chief Complaint ANASARCA SEPSIS - BLOOD CULTURE POSITIVE FOR GROUP G STREP FLUID OVERLOAD LOWER EXTREMITY EDEMA RENAL INSUFFICIENCY DIABETES MELLITUS HYPERTENSION SEVERE MORBID OBESITY ANEMIA ANASARCA WITH GROSS FLUID OVERLOAD AND LOWER EXTREMITY EDEMA - PT TO HAVE LASIX 40MG BID STARTED TODAY, AND WILL HAVE STRICT I/O DAILY WEIGHTS. SEPSIS - FEVER - LACTIC ACID MILDLY ELEVATED - CHECK BLOOD CULTURE, CHEST XRAY WAS NEGATIVE IN ER - UNABLE TO OBTAIN URINE - CANNOT CATH PATIENT - DR. ZARAGOZA ATTEMPTED WITHOUT SUCCESS. STARTED ON ZOSYN - STOPPED VANCOMYCIN AND STARTED ON MEROPENEM AND CLINDAMYCIN RENAL INSUFFICIENCY - MONITOR RENAL FUNCTION, HOLD CAPTOPRIL. DIABETES MELLITUS - SLIDING SCALE INSULIN. MONITOR SYMPTOMS - ADA DIET. HYPERTENSION - RESTART HOME MEDICATIONS EXCEPT FOR JOSH INHIBITOR DUE TO PATIENTS ACUTE RENAL INSUFFICIENCY. ANEMIA - MONITOR SYMPTOMS WHILE ON LOVENOX. GI PROPHYLAXIS - PPI - START ON PROTONIX DVT PROPHYLAXIS - START SCD'S AND LOVENOX. Clinical Quality Measures DVT/VTE Risk/Contraindication: Risk Factor Score Per Nursin RFS Level Per Nursing on Admit: 4+=Very High NITO NICOLAS MD Dec 10, 2016 08:24
[2016-12-10] MEDS: MEROPENEM 500 MG in NS (IVPB) 100 ML IV SCH ×3 (08:54→18:21)
[2016-12-10] MEDS: GABAPENTIN 400 MG (NEURONTIN) CAP PO SCH ×3 (08:57→21:16)
[2016-12-10] MEDS: meTOprolol TARTRATE 25 MG (LOPRESSOR) TABLET PO SCH ×2 (08:58→21:17)
[2016-12-10] MEDS: KETOROLAC 15 MG/ML VIAL IVP PRN (08:58)
[2016-12-10] MEDS: HYDROcodone/APAP 10 MG/325 MG (LORTAB) TAB PO PRN (08:59)
[2016-12-10] MEDS: CLINDAMYCIN INJECTION 900 MG in NS (IVPB) 50 ML IV SCH ×2 (10:43→17:53)
[2016-12-10] MEDS: FLUCONAZOLE 100 MG/50 ML 50 ML IV SCH (10:50)
--- NOTE | 2016-12-10 11:15 | Diagnostic Imaging Report ---
Semiupright portable radiograph of the chest. INDICATION: Fever. COMPARISON: 12/07/16. FINDINGS: The heart is markedly enlarged with mild pulmonary vascular congestion. There is no focal infiltrate. No effusion or pneumothorax. The mediastinum is unremarkable. IMPRESSION: Cardiomegaly with mild pulmonary vascular congestion. Dictated by: Dictated on workstation # [id number]
[2016-12-10] MEDS: ENOXAPARIN 40 MG/0.4 ML (LOVENOX) SYR SC SCH (12:48)
[2016-12-10] MEDS ORDERED: TROUGH ORDER-PHARMACY XX ONE (13:00)
[2016-12-11] VITALS: BP_SYST 104; BP_SYST 110; BP_DIAS 48; BP_DIAS 58
[2016-12-11] MEDS: CLINDAMYCIN INJECTION 900 MG in NS (IVPB) 50 ML IV SCH ×3 (00:56→17:18)
[2016-12-11] MEDS: NS IV 1000 ML 1,000 ML IV SCH ×2 (01:15→06:11)
[2016-12-11] MEDS: VANCOMYCIN INJECTION 1,500 MG in NS IV 500 ML 500 ML IV SCH ×2 (02:30→14:47)
[2016-12-11 04:00] VITALS: BP 103/54
[2016-12-11] MEDS: MEROPENEM 500 MG in NS (IVPB) 100 ML IV SCH ×5 (05:10→18:44)
[2016-12-11] MEDS: FUROSEMIDE 40 MG/4 ML INJ (LASIX) IVP SCH ×2 (06:16→17:17)
[2016-12-11] MEDS: inSUlin (REGULAR) HUMAN 1 UNIT/0.01 ML (CHARGE PER UNIT) SC SCH ×4 (06:28→20:40)
[2016-12-11 07:32] LABS: MEAN PLATELET VOLUME 11.4 FL (7.4-10.4); RED BLOOD COUNT 4.44 10^6/uL (4.35-5.85); RED CELL DISTRIBUTION WIDTH 15.6 % (10.0-14.5); WHITE BLOOD COUNT 15.6 10^3/uL (4.3-11.0)
[2016-12-11 07:57] LABS: ALANINE AMINOTRANSFERASE 12 U/L (0-55); ANION GAP 13 MMOL/L (5-14); ASPARTATE AMINO TRANSFERASE 16 U/L (5-34); BILIRUBIN,TOTAL 0.7 MG/DL (0.1-1.0); BLOOD UREA NITROGEN 28 MG/DL (7-18); BUN/CREATININE RATIO 27; CALCIUM 8.6 MG/DL (8.5-10.1); CARBON DIOXIDE 28 MMOL/L (21-32); CHLORIDE 95 MMOL/L (98-107); CREATININE SERUM 1.03 MG/DL (0.60-1.30); GFR ESTIMATED > 60; GLUCOSE 153 MG/DL (70-105); POTASSIUM 4.3 MMOL/L (3.6-5.0); SODIUM 136 MMOL/L (135-145); TOTAL PROTEIN 6.6 GM/DL (6.4-8.2)
[2016-12-11 08:00] VITALS: BP 122/61
[2016-12-11] MEDS: FLUCONAZOLE 100 MG/50 ML 50 ML IV SCH (08:17)
[2016-12-11] MEDS: meTOprolol TARTRATE 25 MG (LOPRESSOR) TABLET PO SCH ×2 (08:20→20:40)
[2016-12-11] MEDS: GABAPENTIN 400 MG (NEURONTIN) CAP PO SCH ×3 (08:20→20:40)
--- NOTE | 2016-12-11 08:35 | Progress Note (SOAP) ---
Subjective Date Seen by Provider: Dec 11, 2016 Time Seen by Provider: 08:40 Subjective/Events-last exam PT REPORTS THAT HE IS FEELING BETTER TODAY - STAFF STATES THAT HE IS IRRITABLE BUT APPEARS TO BE MORE COGNITIVELY INTACT TODAY THAN YESTERDAY. HE DENIES CHEST PAIN, HOWEVER HE HAS BACK PAIN AND LEG PAIN. Review of Systems General: Fatigue Pulmonary: Dyspnea, Cough Cardiovascular: No: Chest Pain Gastrointestinal: No: Abdominal Pain, Nausea Musculoskeletal: back pain, leg pain Neurological: Weakness Objective Exam Vital Signs Date Time Temp Pulse Resp B/P (MAP) Pulse Ox O2 Delivery O2 Flow Rate FiO2 12/11/16 07:05 Nasal Cannula 2.00 12/11/16 04:00 96.3 91 20 103/54 95 Nasal Cannula 2.00 12/11/16 00:00 97.8 87 20 110/58 95 Nasal Cannula 3.00 12/10/16 21:18 88 128/72 12/10/16 21:00 Nasal Cannula 2.00 12/10/16 20:00 97.1 100 16 115/54 92 Nasal Cannula 3.00 12/10/16 16:00 98.3 95 22 106/55 94 Nasal Cannula 3.00 12/10/16 12:00 99.1 89 20 110/57 92 Nasal Cannula 3.00 12/10/16 09:00 Nasal Cannula 4.00 I & O 12/11/16 07:00 Intake Total 6135 ml Output Total 1200 ml Balance 4935 ml Capillary Refill : Less Than 3 Seconds General Appearance: No Apparent Distress, Obese HEENT: PERRL/EOMI Respiratory: Chest Non Tender, Lungs Clear, Decreased Breath Sounds Cardiovascular: Regular Rate, Rhythm Gastrointestinal: normal bowel sounds, non tender, soft Neurologic/Psychiatric: Alert, Other (ORIENTED TO PERSON) Skin: Erythema Lymphatic: No Adenopathy Results Lab Laboratory Tests 12/10/16 11:06: Glucometer 151H 12/10/16 13:05: Vancomycin Level Trough 21.0H 12/11/16 05:16: Glucometer 135H 12/11/16 06:49: White Blood Count 15.6H, Red Blood Count 4.44, Hemoglobin 11.9L, Hematocrit 42, Mean Corpuscular Volume 94, Mean Corpuscular Hemoglobin 27, Mean Corpuscular Hemoglobin Concent 29L, Red Cell Distribution Width 15.6H, Platelet Count 175, Mean Platelet Volume 11.4H, Sodium Level 136, Potassium Level 4.3, Chloride Level 95L, Carbon Dioxide Level 28, Anion Gap 13, Blood Urea Nitrogen 28H, Creatinine 1.03, Estimat Glomerular Filtration Rate > 60, BUN/Creatinine Ratio 27, Glucose Level 153H, Calcium Level 8.6, Total Bilirubin 0.7, Aspartate Amino Transf (AST/SGOT) 16, Alanine Aminotransferase (ALT/SGPT) 12, Alkaline Phosphatase 72, Total Protein 6.6, Albumin 3.0L Microbiology 12/08/16 Blood Culture - Preliminary, Resulted No growth Assessment/Plan Assessment/Plan Assess & Plan/Chief Complaint ANASARCA SEPSIS - BLOOD CULTURE POSITIVE FOR GROUP G STREP FLUID OVERLOAD LOWER EXTREMITY EDEMA RENAL INSUFFICIENCY DIABETES MELLITUS HYPERTENSION SEVERE MORBID OBESITY ANEMIA ANASARCA WITH GROSS FLUID OVERLOAD AND LOWER EXTREMITY EDEMA - PT TO HAVE LASIX 40MG BID STARTED TODAY, AND WILL HAVE STRICT I/O DAILY WEIGHTS. SEPSIS - FEVER - LACTIC ACID MILDLY ELEVATED - CHECK BLOOD CULTURE, CHEST XRAY WAS NEGATIVE IN ER - UNABLE TO OBTAIN URINE - CANNOT CATH PATIENT - DR. ZARAGOZA ATTEMPTED WITHOUT SUCCESS. STARTED ON ZOSYN - STOPPED VANCOMYCIN AND STARTED ON MEROPENEM AND CLINDAMYCIN RENAL INSUFFICIENCY - MONITOR RENAL FUNCTION, HOLD CAPTOPRIL. DIABETES MELLITUS - SLIDING SCALE INSULIN. MONITOR SYMPTOMS - ADA DIET. HYPERTENSION - RESTART HOME MEDICATIONS EXCEPT FOR JOSH INHIBITOR DUE TO PATIENTS ACUTE RENAL INSUFFICIENCY. ANEMIA - MONITOR SYMPTOMS WHILE ON LOVENOX. GI PROPHYLAXIS - PPI - START ON PROTONIX DVT PROPHYLAXIS - START SCD'S AND LOVENOX. Clinical Quality Measures DVT/VTE Risk/Contraindication: Risk Factor Score Per Nursin RFS Level Per Nursing on Admit: 4+=Very High NITO NICOLAS MD Dec 11, 2016 08:35
[2016-12-11 12:00] VITALS: BP 118/58
[2016-12-11] MEDS: ENOXAPARIN 40 MG/0.4 ML (LOVENOX) SYR SC SCH (14:46)
[2016-12-11 16:00] VITALS: BP_SYST 139; BP_SYST 151; BP_DIAS 71; BP_DIAS 75
[2016-12-12] VITALS: BP 152/84
[2016-12-12] MEDS: MEROPENEM 500 MG in NS (IVPB) 100 ML IV SCH ×5 (00:15→23:28)
[2016-12-12] MEDS: CLINDAMYCIN INJECTION 900 MG in NS (IVPB) 50 ML IV SCH ×3 (01:03→16:11)
[2016-12-12] MEDS: VANCOMYCIN INJECTION 1,500 MG in NS IV 500 ML 500 ML IV SCH (02:09)
[2016-12-12] MEDS: FUROSEMIDE 40 MG/4 ML INJ (LASIX) IVP SCH ×2 (06:08→16:11)
[2016-12-12] MEDS: inSUlin (REGULAR) HUMAN 1 UNIT/0.01 ML (CHARGE PER UNIT) SC SCH ×4 (06:09→20:35)
[2016-12-12] MEDS: HYDROcodone/APAP 10 MG/325 MG (LORTAB) TAB PO PRN (06:36)
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
[2016-12-12 08:00] VITALS: BP 106/55
[2016-12-12 08:23] LABS: MEAN PLATELET VOLUME 11.1 FL (7.4-10.4); RED BLOOD COUNT 4.36 10^6/uL (4.35-5.85); RED CELL DISTRIBUTION WIDTH 15.4 % (10.0-14.5); WHITE BLOOD COUNT 15.7 10^3/uL (4.3-11.0)
[2016-12-12 08:34] LABS: ALANINE AMINOTRANSFERASE 11 U/L (0-55); ALBUMIN 2.9 GM/DL (3.2-4.5); ANION GAP 4 MMOL/L (5-14); ASPARTATE AMINO TRANSFERASE 15 U/L (5-34); BILIRUBIN,TOTAL 0.6 MG/DL (0.1-1.0); BLOOD UREA NITROGEN 23 MG/DL (7-18); BUN/CREATININE RATIO 28; CALCIUM 8.7 MG/DL (8.5-10.1); CARBON DIOXIDE 42 MMOL/L (21-32); CHLORIDE 95 MMOL/L (98-107); CREATININE SERUM 0.81 MG/DL (0.60-1.30); GFR ESTIMATED > 60; GLUCOSE 163 MG/DL (70-105); POTASSIUM 3.8 MMOL/L (3.6-5.0); SODIUM 141 MMOL/L (135-145); TOTAL PROTEIN 6.4 GM/DL (6.4-8.2)
[2016-12-12] MEDS: GABAPENTIN 400 MG (NEURONTIN) CAP PO SCH ×3 (08:44→20:13)
[2016-12-12] MEDS: meTOprolol TARTRATE 25 MG (LOPRESSOR) TABLET PO SCH ×2 (08:44→20:13)
[2016-12-12] MEDS: FLUCONAZOLE 100 MG/50 ML 50 ML IV SCH (08:44)
[2016-12-12] MEDS: NS IV 1000 ML 1,000 ML IV SCH (08:54)
[2016-12-12] MEDS: ENOXAPARIN 40 MG/0.4 ML (LOVENOX) SYR SC SCH (12:00)
[2016-12-12] MEDS ORDERED: TROUGH ORDER-PHARMACY XX NR (13:00)
[2016-12-12 16:24] VITALS: BP 135/74
[2016-12-12] MEDS ORDERED: DEXTROSE 10% IV SOLUTION 1,000 ML IV SCH (22:00)
[2016-12-12 23:45] VITALS: BP 131/75
[2016-12-13] MEDS: CLINDAMYCIN INJECTION 900 MG in NS (IVPB) 50 ML IV SCH ×3 (00:47→16:05)
[2016-12-13] MEDS: FUROSEMIDE 40 MG/4 ML INJ (LASIX) IVP SCH ×2 (06:00→16:05)
[2016-12-13] MEDS: MEROPENEM 500 MG in NS (IVPB) 100 ML IV SCH ×4 (06:00→23:33)
[2016-12-13] MEDS: inSUlin (REGULAR) HUMAN 1 UNIT/0.01 ML (CHARGE PER UNIT) SC SCH ×4 (06:01→20:40)
[2016-12-13 06:11] LABS: RED BLOOD COUNT 4.61 10^6/uL (4.35-5.85); RED CELL DISTRIBUTION WIDTH 15.5 % (10.0-14.5); WHITE BLOOD COUNT 11.2 10^3/uL (4.3-11.0)
[2016-12-13 06:31] LABS: ALANINE AMINOTRANSFERASE 10 U/L (0-55); ALBUMIN 2.9 GM/DL (3.2-4.5); ANION GAP 12 MMOL/L (5-14); ASPARTATE AMINO TRANSFERASE 13 U/L (5-34); BILIRUBIN,TOTAL 0.4 MG/DL (0.1-1.0); BLOOD UREA NITROGEN 21 MG/DL (7-18); BUN/CREATININE RATIO 26; CALCIUM 8.6 MG/DL (8.5-10.1); CARBON DIOXIDE 34 MMOL/L (21-32); CHLORIDE 95 MMOL/L (98-107); CREATININE SERUM 0.81 MG/DL (0.60-1.30); GFR ESTIMATED > 60; GLUCOSE 167 MG/DL (70-105); SODIUM 141 MMOL/L (135-145); TOTAL PROTEIN 6.3 GM/DL (6.4-8.2)
[2016-12-13] MEDS: NS IV 1000 ML 1,000 ML IV SCH (08:24)
[2016-12-13] MEDS: FLUCONAZOLE 100 MG/50 ML 50 ML IV SCH (08:24)
[2016-12-13] MEDS: GABAPENTIN 400 MG (NEURONTIN) CAP PO SCH ×3 (08:25→20:39)
[2016-12-13] MEDS: meTOprolol TARTRATE 25 MG (LOPRESSOR) TABLET PO SCH ×2 (08:25→20:39)
[2016-12-13 08:28] VITALS: BP 157/82
[2016-12-13] MEDS: ENOXAPARIN 40 MG/0.4 ML (LOVENOX) SYR SC SCH ×2 (12:47→20:40)
[2016-12-13] MEDS ORDERED: LIDOCAINE UROJET 2% GEL 10 ML PKG TOP ONE (14:00)
--- NOTE | 2016-12-13 14:10 | Progress Note (SOAP) ---
Subjective Subjective Date Seen by Provider: Dec 13, 2016 Time Seen by Provider: 14:05 61 yo M admitted for anasarca Improving daily- diuresing redness/cellulitis continues to improve. -Pt's dog is with him today. Denies fevers. -Sometimes able to urinate in urinal- but mostly wets the bed. Review of Systems General: No Chills, Fatigue, Malaise HEENT: No Head Aches, No Dysphasia, No Sore Throat Pulmonary: Dyspnea, No Cough Cardiovascular: No: Chest Pain, Palpitations Gastrointestinal: No: Abdominal Pain, Constipation, Diarrhea, Nausea Genitourinary: Incontinence Musculoskeletal: back pain, leg pain Neurological: Weakness, No: Confusion Objective Exam Vital Signs Vital Signs Date Time Temp Pulse Resp B/P (MAP) Pulse Ox O2 Delivery O2 Flow Rate FiO2 12/13/16 09:22 Nasal Cannula 2.00 12/13/16 08:28 98.2 96 22 157/82 98 Nasal Cannula 2.00 12/12/16 23:45 98.6 89 18 131/75 94 Nasal Cannula 2.00 12/12/16 21:00 Nasal Cannula 2.00 12/12/16 16:24 98.8 92 18 135/74 98 Nasal Cannula 2.00 I & O 12/13/16 07:00 Intake Total 4068 ml Output Total 1700 ml Balance 2368 ml General Appearance: No Apparent Distress, Obese Eyes: Bilateral Eye Normal Inspection HEENT: PERRL/EOMI Neck: Full Range of Motion, Supple Respiratory: Chest Non Tender, Lungs Clear, Other (distant due to weight) Cardiovascular: Regular Rate, Rhythm Gastrointestinal: Normal Bowel Sounds, Non Tender, Soft, Other (EDEMA BILATERAL LOWER EXTREMITIES UP TO MID ABDOMEN 3+ PITTING) Rectal: Deferred Extremity: Pedal Edema Neurologic/Psychiatric: Alert, Oriented x3, No Motor/Sensory Deficits, Normal Mood/Affect Skin: Erythema Lymphatic: No Adenopathy Results Lab Laboratory Tests 12/12/16 16:23: Glucometer 173H 12/12/16 20:27: Glucometer 168H 12/13/16 05:16: Glucometer 176H 12/13/16 06:00: White Blood Count 11.2H, Red Blood Count 4.61, Hemoglobin 12.2L, Hematocrit 44, Mean Corpuscular Volume 95, Mean Corpuscular Hemoglobin 27, Mean Corpuscular Hemoglobin Concent 28L, Red Cell Distribution Width 15.5H, Platelet Count 190, Mean Platelet Volume 11.0H, Sodium Level 141, Potassium Level 4.0, Chloride Level 95L, Carbon Dioxide Level 34H, Anion Gap 12, Blood Urea Nitrogen 21H, Creatinine 0.81, Estimat Glomerular Filtration Rate > 60, BUN/Creatinine Ratio 26, Glucose Level 167H, Calcium Level 8.6, Total Bilirubin 0.4, Aspartate Amino Transf (AST/SGOT) 13, Alanine Aminotransferase (ALT/SGPT) 10, Alkaline Phosphatase 77, Total Protein 6.3L, Albumin 2.9L 12/13/16 11:09: Glucometer 215H Microbiology 12/08/16 Blood Culture - Preliminary, Resulted No growth Assessment/Plan Assessment/Plan Assessment/Plan 61 yo M Anasarca- continue lasix, i/o, daily weight sepsis due to bacteremia- StrepG on meropenem, clindamycin, fluconazole acute renal insufficiency- resolved; minimize nephrotoxic agents. Diabetes Mellitus II- SSI, ADA diet HTN- continue home meds Anemia- monitor hgb- stable GI ppx- protonix DVT ppx- scds, BMI >40 lovenox 40mg q12hr Dispo: goal to continue diuresing- attempt to place a bhakta today- unsuccessful. Problems: Clinical Quality Measures DVT/VTE Risk/Contraindication: Risk Factor Score Per Nursin RFS Level Per Nursing on Admit: 4+=Very High SABINA BROWNE MD Dec 13, 2016 14:10
[2016-12-13] MEDS ORDERED: LOPERAMIDE 2 MG (IMODIUM) CAP PO ONE (14:30)
[2016-12-13] MEDS ORDERED: LOPERAMIDE 2 MG (IMODIUM) CAP PO PRN (14:30)
[2016-12-13 16:00] VITALS: BP 155/70
[2016-12-13 20:30] VITALS: BP 127/73
[2016-12-13] MEDS: HYDROcodone/APAP 10 MG/325 MG (LORTAB) TAB PO PRN (20:39)
[2016-12-14] VITALS: BP 132/73
[2016-12-14] MEDS: CLINDAMYCIN INJECTION 900 MG in NS (IVPB) 50 ML IV SCH ×3 (00:23→16:42)
[2016-12-14 05:41] LABS: MEAN PLATELET VOLUME 11.2 FL (7.4-10.4); RED BLOOD COUNT 4.49 10^6/uL (4.35-5.85); RED CELL DISTRIBUTION WIDTH 15.3 % (10.0-14.5); WHITE BLOOD COUNT 10.8 10^3/uL (4.3-11.0)
[2016-12-14] MEDS: MEROPENEM 500 MG in NS (IVPB) 100 ML IV SCH ×4 (06:00→23:05)
[2016-12-14] MEDS: FUROSEMIDE 40 MG/4 ML INJ (LASIX) IVP SCH ×2 (06:00→17:43)
[2016-12-14] MEDS: inSUlin (REGULAR) HUMAN 1 UNIT/0.01 ML (CHARGE PER UNIT) SC SCH ×4 (06:00→20:58)
[2016-12-14 06:03] LABS: ALANINE AMINOTRANSFERASE 9 U/L (0-55); ALBUMIN 2.9 GM/DL (3.2-4.5); ANION GAP 5 MMOL/L (5-14); ASPARTATE AMINO TRANSFERASE 15 U/L (5-34); BILIRUBIN,TOTAL 0.4 MG/DL (0.1-1.0); BLOOD UREA NITROGEN 19 MG/DL (7-18); BUN/CREATININE RATIO 22; CALCIUM 8.8 MG/DL (8.5-10.1); CARBON DIOXIDE 44 MMOL/L (21-32); CHLORIDE 93 MMOL/L (98-107); CREATININE SERUM 0.88 MG/DL (0.60-1.30); GFR ESTIMATED > 60; GLUCOSE 203 MG/DL (70-105); POTASSIUM 3.9 MMOL/L (3.6-5.0); SODIUM 142 MMOL/L (135-145); TOTAL PROTEIN 6.5 GM/DL (6.4-8.2)
[2016-12-14] MEDS: NS IV 1000 ML 1,000 ML IV SCH (06:51)
[2016-12-14 08:00] VITALS: BP 117/57
[2016-12-14] MEDS: GABAPENTIN 400 MG (NEURONTIN) CAP PO SCH ×3 (09:23→20:58)
[2016-12-14] MEDS: meTOprolol TARTRATE 25 MG (LOPRESSOR) TABLET PO SCH ×2 (09:24→20:57)
[2016-12-14] MEDS: ENOXAPARIN 40 MG/0.4 ML (LOVENOX) SYR SC SCH ×2 (09:25→20:57)
[2016-12-14] MEDS: FLUCONAZOLE 100 MG/50 ML 50 ML IV SCH (09:26)
--- NOTE | 2016-12-14 11:51 | Progress Note (SOAP) ---
Subjective Subjective Date Seen by Provider: Dec 14, 2016 Time Seen by Provider: 11:52 61 yo M admitted for anasarca Improving daily- diuresing redness/cellulitis continues to improve. Denies fevers. -Unsuccessful bhakta placement yesterday Pt reports he is tired today. Nursing concerned about his IV access. Review of Systems General: No Chills, Fatigue, Malaise HEENT: No Head Aches, No Dysphasia, No Sore Throat Pulmonary: Dyspnea, No Cough Cardiovascular: No: Chest Pain, Palpitations Gastrointestinal: No: Abdominal Pain, Constipation, Diarrhea, Nausea Genitourinary: Incontinence Musculoskeletal: back pain, leg pain Neurological: Weakness, No: Confusion Objective Exam Vital Signs Vital Signs Date Time Temp Pulse Resp B/P (MAP) Pulse Ox O2 Delivery O2 Flow Rate FiO2 12/14/16 08:19 Nasal Cannula 2.00 12/14/16 08:00 98.7 94 18 117/57 91 Nasal Cannula 3.00 12/14/16 00:00 98.9 90 16 132/73 94 Nasal Cannula 3.00 12/13/16 21:30 Nasal Cannula 2.00 12/13/16 21:30 Nasal Cannula 2.00 12/13/16 20:30 101 127/73 12/13/16 16:27 Nasal Cannula 2.00 12/13/16 16:00 98.9 102 20 155/70 95 Nasal Cannula 3.00 I & O 12/14/16 07:00 Intake Total 3908 ml Output Total 1075 ml Balance 2833 ml General Appearance: No Apparent Distress, Obese (morbidly) Eyes: Bilateral Eye Normal Inspection HEENT: PERRL/EOMI Neck: Full Range of Motion, Supple Respiratory: Chest Non Tender, Lungs Clear, Other (distant due to weight) Cardiovascular: Regular Rate, Rhythm Gastrointestinal: Normal Bowel Sounds, Non Tender, Soft, Other (EDEMA BILATERAL LOWER EXTREMITIES UP TO MID ABDOMEN 3+ PITTING) Rectal: Deferred Extremity: Pedal Edema (woody legs due to venous insufficiency/chronic lymphedema) Neurologic/Psychiatric: Alert, Oriented x3, No Motor/Sensory Deficits, Normal Mood/Affect Skin: Erythema (improving) Lymphatic: No Adenopathy Results Lab Laboratory Tests 12/13/16 16:03: Glucometer 209H 12/13/16 20:24: Glucometer 207H 12/14/16 05:20: White Blood Count 10.8, Red Blood Count 4.49, Hemoglobin 11.9L, Hematocrit 42, Mean Corpuscular Volume 94, Mean Corpuscular Hemoglobin 27, Mean Corpuscular Hemoglobin Concent 28L, Red Cell Distribution Width 15.3H, Platelet Count 223, Mean Platelet Volume 11.2H, Sodium Level 142, Potassium Level 3.9, Chloride Level 93L, Carbon Dioxide Level 44H, Anion Gap 5, Blood Urea Nitrogen 19H, Creatinine 0.88, Estimat Glomerular Filtration Rate > 60, BUN/Creatinine Ratio 22, Glucose Level 203H, Calcium Level 8.8, Total Bilirubin 0.4, Aspartate Amino Transf (AST/SGOT) 15, Alanine Aminotransferase (ALT/SGPT) 9, Alkaline Phosphatase 83, Total Protein 6.5, Albumin 2.9L 12/14/16 05:28: Glucometer 177H Microbiology 12/08/16 Blood Culture - Final, Complete No growth Assessment/Plan Assessment/Plan Assessment/Plan 61 yo M Anasarca- continue lasix, i/o, daily weights-- down from 241kg to 233kg sepsis due to bacteremia- StrepG on meropenem, clindamycin, (completed fluconazole 12/14/16) acute renal insufficiency- resolved; minimize nephrotoxic agents. Diabetes Mellitus II- SSI, ADA diet HTN- continue home meds chronic Anemia- monitor hgb- stable obesity hypoventilation syndrome- oxygen prn at home- currently on 2L NC oxygen GI ppx- protonix DVT ppx- scds, BMI >40 lovenox 40mg q12hr Dispo: goal to continue diuresing- Pt last walked 1 year ago- he has been bedbound since. 12/13/16 since his swelling had decreased nursing staff attempted to place a bhakta- unsuccessful Problems: Clinical Quality Measures DVT/VTE Risk/Contraindication: Risk Factor Score Per Nursin RFS Level Per Nursing on Admit: 4+=Very High SABINA BROWNE MD Dec 14, 2016 11:51
[2016-12-14] MEDS: HYDROcodone/APAP 10 MG/325 MG (LORTAB) TAB PO PRN (14:45)
[2016-12-14 16:00] VITALS: BP 109/72
[2016-12-15] VITALS: BP 160/75
[2016-12-15] MEDS: CLINDAMYCIN INJECTION 900 MG in NS (IVPB) 50 ML IV SCH ×3 (00:32→16:42)
[2016-12-15] MEDS: NS IV 1000 ML 1,000 ML IV SCH ×2 (04:26→23:47)
[2016-12-15] MEDS: MEROPENEM 500 MG in NS (IVPB) 100 ML IV SCH ×4 (05:33→23:47)
[2016-12-15 05:35] LABS: RED BLOOD COUNT 4.56 10^6/uL (4.35-5.85); RED CELL DISTRIBUTION WIDTH 15.5 % (10.0-14.5)
[2016-12-15 05:56] LABS: ALANINE AMINOTRANSFERASE 9 U/L (0-55); ANION GAP 15 MMOL/L (5-14); ASPARTATE AMINO TRANSFERASE 13 U/L (5-34); BILIRUBIN,TOTAL 0.4 MG/DL (0.1-1.0); BLOOD UREA NITROGEN 17 MG/DL (7-18); BUN/CREATININE RATIO 21; CALCIUM 8.6 MG/DL (8.5-10.1); CARBON DIOXIDE 34 MMOL/L (21-32); CHLORIDE 93 MMOL/L (98-107); CREATININE SERUM 0.81 MG/DL (0.60-1.30); GFR ESTIMATED > 60; GLUCOSE 175 MG/DL (70-105); POTASSIUM 4.1 MMOL/L (3.6-5.0); SODIUM 142 MMOL/L (135-145); TOTAL PROTEIN 6.7 GM/DL (6.4-8.2)
[2016-12-15] MEDS: FUROSEMIDE 40 MG/4 ML INJ (LASIX) IVP SCH ×2 (06:03→18:10)
[2016-12-15] MEDS: inSUlin (REGULAR) HUMAN 1 UNIT/0.01 ML (CHARGE PER UNIT) SC SCH ×4 (06:04→20:55)
[2016-12-15] MEDS: HYDROcodone/APAP 10 MG/325 MG (LORTAB) TAB PO PRN ×2 (06:04→11:45)
[2016-12-15 08:00] VITALS: BP 110/55
--- NOTE | 2016-12-15 08:23 | Progress Note (SOAP) ---
Subjective Date Seen by Provider: Dec 15, 2016 Time Seen by Provider: 08:50 Subjective/Events-last exam PT REPORTS THAT HE IS STILL FEELING OVERLY FULL OF FLUIDS, HIS LEGS AND KNEES HURT, BUT HE DOES FEEL LIKE HE IS BREATHING A LITTLE BETTER TODAY. Review of Systems General: Fatigue, Malaise Pulmonary: Dyspnea Cardiovascular: No: Chest Pain Gastrointestinal: No: Abdominal Pain, Nausea Genitourinary: Incontinence Musculoskeletal: back pain, leg pain Objective Exam Vital Signs Date Time Temp Pulse Resp B/P (MAP) Pulse Ox O2 Delivery O2 Flow Rate FiO2 12/15/16 00:00 96.0 88 16 160/75 94 Nasal Cannula 2.00 12/14/16 21:31 Nasal Cannula 2.00 12/14/16 16:00 99.1 92 20 109/72 95 Nasal Cannula 3.00 12/14/16 09:00 Nasal Cannula 2.00 I & O 12/15/16 07:00 Intake Total 3801 ml Output Total 1425 ml Balance 2376 ml Capillary Refill : Less Than 3 Seconds General Appearance: No Apparent Distress, Obese Neck: Supple Respiratory: Chest Non Tender, Lungs Clear, Decreased Breath Sounds Cardiovascular: Regular Rate, Rhythm Gastrointestinal: normal bowel sounds, non tender, other (ERYTHEMA RIGHT FLANK TO BREAST, EDEMATOUS ABDOMEN) Neurologic/Psychiatric: Alert, Oriented x3 Skin: Erythema (RIGHT FLANK) Results Lab Laboratory Tests 12/14/16 11:33: Glucometer 194H 12/14/16 16:12: Glucometer 221H 12/14/16 20:50: Glucometer 209H 12/15/16 05:11: Glucometer 164H 12/15/16 05:13: White Blood Count 10.0, Red Blood Count 4.56, Hemoglobin 11.9L, Hematocrit 44, Mean Corpuscular Volume 96, Mean Corpuscular Hemoglobin 26, Mean Corpuscular Hemoglobin Concent 27L, Red Cell Distribution Width 15.5H, Platelet Count 224, Mean Platelet Volume 11.0H, Sodium Level 142, Potassium Level 4.1, Chloride Level 93L, Carbon Dioxide Level 34H, Anion Gap 15H, Blood Urea Nitrogen 17, Creatinine 0.81, Estimat Glomerular Filtration Rate > 60, BUN/Creatinine Ratio 21, Glucose Level 175H, Calcium Level 8.6, Total Bilirubin 0.4, Aspartate Amino Transf (AST/SGOT) 13, Alanine Aminotransferase (ALT/SGPT) 9, Alkaline Phosphatase 74, Total Protein 6.7, Albumin 3.0L Microbiology 12/08/16 Blood Culture - Final, Complete No growth Assessment/Plan Assessment/Plan Assess & Plan/Chief Complaint ANASARCA SEPSIS - BLOOD CULTURE POSITIVE FOR GROUP G STREP FLUID OVERLOAD LOWER EXTREMITY EDEMA RENAL INSUFFICIENCY DIABETES MELLITUS HYPERTENSION SEVERE MORBID OBESITY ANEMIA ANASARCA WITH GROSS FLUID OVERLOAD AND LOWER EXTREMITY EDEMA - CONTINUE WITH LASIX, MONITOR DAILY WEIGHTS, ELEVATE RIGHT FLANK OFF OF BED SEPSIS - FEVER - LACTIC ACID MILDLY ELEVATED - MAJORITY OF SYMPTOMS RESOLVED- CHECK BLOOD CULTURE, CHEST XRAY WAS NEGATIVE IN ER - UNABLE TO OBTAIN URINE - CANNOT CATH PATIENT - DR. ZARAGOZA ATTEMPTED WITHOUT SUCCESS. IMPROVED SYMPTOMS ON THE MEROPENEM AND CLINDA - WE WILL CONTINUE WITH THIS CURRENT MANAGEMENT. RENAL INSUFFICIENCY - MONITOR RENAL FUNCTION - IMPROVED OFF OF CAPTOPRIL DIABETES MELLITUS - SLIDING SCALE INSULIN. MONITOR SYMPTOMS - ADA DIET. HYPERTENSION - RESTART HOME MEDICATIONS EXCEPT FOR JOSH INHIBITOR DUE TO PATIENTS ACUTE RENAL INSUFFICIENCY. ANEMIA - MONITOR SYMPTOMS WHILE ON LOVENOX. GI PROPHYLAXIS - PPI - STARTED ON PROTONIX DVT PROPHYLAXIS - STARTED SCD'S AND LOVENOX. Clinical Quality Measures DVT/VTE Risk/Contraindication: Risk Factor Score Per Nursin RFS Level Per Nursing on Admit: 4+=Very High NITO NICOLAS MD Dec 15, 2016 08:23
[2016-12-15] MEDS: ENOXAPARIN 40 MG/0.4 ML (LOVENOX) SYR SC SCH ×2 (09:19→20:45)
[2016-12-15] MEDS: meTOprolol TARTRATE 25 MG (LOPRESSOR) TABLET PO SCH ×2 (09:19→20:46)
[2016-12-15] MEDS: GABAPENTIN 400 MG (NEURONTIN) CAP PO SCH ×3 (09:20→20:45)
[2016-12-15 15:35] VITALS: BP 91/53
[2016-12-15 23:30] VITALS: BP 134/72
[2016-12-16] MEDS: CLINDAMYCIN INJECTION 900 MG in NS (IVPB) 50 ML IV SCH ×3 (01:09→16:26)
[2016-12-16] MEDS: MEROPENEM 500 MG in NS (IVPB) 100 ML IV SCH ×3 (05:40→17:43)
[2016-12-16 06:09] LABS: MEAN PLATELET VOLUME 11.1 FL (7.4-10.4); RED BLOOD COUNT 4.44 10^6/uL (4.35-5.85); RED CELL DISTRIBUTION WIDTH 15.4 % (10.0-14.5); WHITE BLOOD COUNT 8.1 10^3/uL (4.3-11.0)
[2016-12-16 06:31] LABS: ALANINE AMINOTRANSFERASE 9 U/L (0-55); ALBUMIN 2.8 GM/DL (3.2-4.5); ANION GAP 3 MMOL/L (5-14); ASPARTATE AMINO TRANSFERASE 14 U/L (5-34); BILIRUBIN,TOTAL 0.4 MG/DL (0.1-1.0); BLOOD UREA NITROGEN 17 MG/DL (7-18); BUN/CREATININE RATIO 21; CALCIUM 8.7 MG/DL (8.5-10.1); CARBON DIOXIDE 44 MMOL/L (21-32); CHLORIDE 91 MMOL/L (98-107); CREATININE SERUM 0.81 MG/DL (0.60-1.30); GFR ESTIMATED > 60; GLUCOSE 176 MG/DL (70-105); POTASSIUM 4.2 MMOL/L (3.6-5.0); SODIUM 138 MMOL/L (135-145); TOTAL PROTEIN 6.3 GM/DL (6.4-8.2)
[2016-12-16] MEDS: inSUlin (REGULAR) HUMAN 1 UNIT/0.01 ML (CHARGE PER UNIT) SC SCH ×4 (06:56→20:42)
[2016-12-16] MEDS: FUROSEMIDE 40 MG/4 ML INJ (LASIX) IVP SCH ×2 (06:56→17:43)
[2016-12-16 08:17] VITALS: BP 163/71
[2016-12-16] MEDS ORDERED: FUROSEMIDE 40 MG/4 ML INJ (LASIX) IVP NR (08:30)
--- NOTE | 2016-12-16 08:30 | Progress Note (SOAP) ---
Objective Exam Vital Signs Date Time Temp Pulse Resp B/P (MAP) Pulse Ox O2 Delivery O2 Flow Rate FiO2 12/16/16 08:17 97.1 90 22 163/71 94 Nasal Cannula 3.00 12/16/16 07:59 Nasal Cannula 3.00 12/15/16 23:30 98.0 81 20 134/72 96 Nasal Cannula 3.00 12/15/16 20:50 Nasal Cannula 3.00 12/15/16 15:35 96.0 89 15 91/53 92 Nasal Cannula 3.00 12/15/16 10:43 Nasal Cannula 2.00 12/15/16 09:00 93 Nasal Cannula 2.00 I & O 12/16/16 07:00 Intake Total 2406 ml Output Total 2150 ml Balance 256 ml Capillary Refill : Less Than 3 Seconds Results Lab Laboratory Tests 12/15/16 11:23: Glucometer 183H 12/15/16 15:51: Glucometer 207H 12/15/16 20:51: Glucometer 237H 12/16/16 05:44: Glucometer 162H 12/16/16 05:55: White Blood Count 8.1, Red Blood Count 4.44, Hemoglobin 11.7L, Hematocrit 42, Mean Corpuscular Volume 94, Mean Corpuscular Hemoglobin 26, Mean Corpuscular Hemoglobin Concent 28L, Red Cell Distribution Width 15.4H, Platelet Count 213, Mean Platelet Volume 11.1H, Sodium Level 138, Potassium Level 4.2, Chloride Level 91L, Carbon Dioxide Level 44H, Anion Gap 3L, Blood Urea Nitrogen 17, Creatinine 0.81, Estimat Glomerular Filtration Rate > 60, BUN/Creatinine Ratio 21, Glucose Level 176H, Calcium Level 8.7, Total Bilirubin 0.4, Aspartate Amino Transf (AST/SGOT) 14, Alanine Aminotransferase (ALT/SGPT) 9, Alkaline Phosphatase 67, Total Protein 6.3L, Albumin 2.8L Microbiology 12/08/16 Blood Culture - Final, Complete No growth Assessment/Plan Assessment/Plan Assess & Plan/Chief Complaint ANASARCA SEPSIS - BLOOD CULTURE POSITIVE FOR GROUP G STREP FLUID OVERLOAD LOWER EXTREMITY EDEMA RENAL INSUFFICIENCY DIABETES MELLITUS HYPERTENSION SEVERE MORBID OBESITY ANEMIA ANASARCA WITH GROSS FLUID OVERLOAD AND LOWER EXTREMITY EDEMA - LASIX 40MG BID, STRICT I/O DAILY WEIGHTS. SEPSIS - FEVER - LACTIC ACID MILDLY ELEVATED - MAJORITY OF SYMPTOMS RESOLVED- CHECK BLOOD CULTURE, CHEST XRAY WAS NEGATIVE IN ER - UNABLE TO OBTAIN URINE - CANNOT CATH PATIENT - DR. ZARAGOZA ATTEMPTED WITHOUT SUCCESS. INITIALLY ON ZOSYN AND VANCOMYCIN, THE ZOSYN WAS STOPPED AND TODAY I HAVE STOPPED VANCOMYCIN AND DUE TO HIS IMPROVED SYMPTOMS ON THE MEROPENEM AND CLINDA STARTED - WE WILL CONTINUE WITH THIS CURRENT MANAGEMENT. RENAL INSUFFICIENCY - MONITOR RENAL FUNCTION, HOLD CAPTOPRIL. DIABETES MELLITUS - SLIDING SCALE INSULIN. MONITOR SYMPTOMS - ADA DIET. HYPERTENSION - RESTART HOME MEDICATIONS EXCEPT FOR JOSH INHIBITOR DUE TO PATIENTS ACUTE RENAL INSUFFICIENCY. ANEMIA - MONITOR SYMPTOMS WHILE ON LOVENOX. GI PROPHYLAXIS - PPI - STARTED ON PROTONIX DVT PROPHYLAXIS - STARTED SCD'S AND LOVENOX. Clinical Quality Measures DVT/VTE Risk/Contraindication: Risk Factor Score Per Nursin RFS Level Per Nursing on Admit: 4+=Very High NITO NICOLAS MD Dec 16, 2016 08:30
[2016-12-16] MEDS: HYDROcodone/APAP 10 MG/325 MG (LORTAB) TAB PO PRN ×2 (09:53→22:33)
[2016-12-16] MEDS: meTOprolol TARTRATE 25 MG (LOPRESSOR) TABLET PO SCH ×2 (09:54→20:20)
[2016-12-16] MEDS: ENOXAPARIN 40 MG/0.4 ML (LOVENOX) SYR SC SCH ×2 (09:54→20:20)
[2016-12-16] MEDS: GABAPENTIN 400 MG (NEURONTIN) CAP PO SCH ×3 (09:54→20:20)
[2016-12-16 15:50] VITALS: BP 142/83
[2016-12-16] MEDS: NS IV 1000 ML 1,000 ML IV SCH (16:27)
[2016-12-17] MEDS: MEROPENEM 500 MG in NS (IVPB) 100 ML IV SCH ×5 (00:29→23:42)
[2016-12-17 00:55] VITALS: BP 147/64
[2016-12-17] MEDS: CLINDAMYCIN INJECTION 900 MG in NS (IVPB) 50 ML IV SCH ×4 (01:18→20:30)
[2016-12-17 05:27] LABS: MEAN PLATELET VOLUME 11.1 FL (7.4-10.4); RED BLOOD COUNT 4.33 10^6/uL (4.35-5.85); RED CELL DISTRIBUTION WIDTH 15.5 % (10.0-14.5); WHITE BLOOD COUNT 8.6 10^3/uL (4.3-11.0)
[2016-12-17 05:58] LABS: ALANINE AMINOTRANSFERASE 9 U/L (0-55); ANION GAP 11 MMOL/L (5-14); ASPARTATE AMINO TRANSFERASE 13 U/L (5-34); BILIRUBIN,TOTAL 0.5 MG/DL (0.1-1.0); BLOOD UREA NITROGEN 15 MG/DL (7-18); BUN/CREATININE RATIO 18; CARBON DIOXIDE 42 MMOL/L (21-32); CHLORIDE 87 MMOL/L (98-107); CREATININE SERUM 0.82 MG/DL (0.60-1.30); GFR ESTIMATED > 60; GLUCOSE 160 MG/DL (70-105); POTASSIUM 3.8 MMOL/L (3.6-5.0); SODIUM 140 MMOL/L (135-145); TOTAL PROTEIN 6.7 GM/DL (6.4-8.2)
[2016-12-17] MEDS: inSUlin (REGULAR) HUMAN 1 UNIT/0.01 ML (CHARGE PER UNIT) SC SCH ×4 (06:48→20:40)
[2016-12-17] MEDS: FUROSEMIDE 40 MG/4 ML INJ (LASIX) IVP SCH ×2 (07:05→18:37)
[2016-12-17 08:00] VITALS: BP 142/83
--- NOTE | 2016-12-17 08:59 | Progress Note (SOAP) ---
Subjective Date Seen by Provider: Dec 17, 2016 Time Seen by Provider: 08:25 Subjective/Events-last exam PT IS GROGGY THIS MORNING. HE IS TOO GROGGY TO ANSWER QUESTIONS THIS MORNING. I TALKED TO HIS TODAY SHE REPORTS THAT HE SOMETIMES GETS LIKE THIS AT HOME , WEAK AND GROGGY. Review of Systems General: Fatigue, Malaise HEENT: No Head Aches Pulmonary: No Dyspnea, No Cough Cardiovascular: No: Chest Pain Genitourinary: No Dysuria, Incontinence Neurological: Confusion, Weakness Objective Exam Vital Signs Date Time Temp Pulse Resp B/P (MAP) Pulse Ox O2 Delivery O2 Flow Rate FiO2 12/17/16 07:23 94 Nasal Cannula 3.00 12/17/16 00:55 98.2 83 18 147/64 96 Nasal Cannula 3.00 12/16/16 20:40 Nasal Cannula 3.00 12/16/16 15:50 98.2 86 18 142/83 98 Nasal Cannula 3.00 I & O 12/17/16 07:00 Intake Total 3516 ml Output Total 4450 ml Balance -934 ml Capillary Refill : Less Than 3 Seconds General Appearance: WD/WN Neck: Supple Respiratory: Chest Non Tender, Lungs Clear, Normal Breath Sounds Cardiovascular: Regular Rate, Rhythm Gastrointestinal: normal bowel sounds, other (OBESE ABDOMEN - NONTENDER) Extremity: Pedal Edema Neurologic/Psychiatric: Other (ORIENTED TO VOICE) Skin: Warm/Dry, Erythema (OVER RIGHT FLANK) Lymphatic: No Adenopathy Results Lab Laboratory Tests 12/16/16 11:49: Glucometer 166H 12/16/16 15:59: Glucometer 189H 12/16/16 20:35: Glucometer 208H 12/17/16 04:53: White Blood Count 8.6, Red Blood Count 4.33L, Hemoglobin 11.5L, Hematocrit 40, Mean Corpuscular Volume 93, Mean Corpuscular Hemoglobin 27, Mean Corpuscular Hemoglobin Concent 29L, Red Cell Distribution Width 15.5H, Platelet Count 229, Mean Platelet Volume 11.1H, Sodium Level 140, Potassium Level 3.8, Chloride Level 87L, Carbon Dioxide Level 42H, Anion Gap 11, Blood Urea Nitrogen 15, Creatinine 0.82, Estimat Glomerular Filtration Rate > 60, BUN/Creatinine Ratio 18, Glucose Level 160H, Calcium Level 9.0, Total Bilirubin 0.5, Aspartate Amino Transf (AST/SGOT) 13, Alanine Aminotransferase (ALT/SGPT) 9, Alkaline Phosphatase 68, Total Protein 6.7, Albumin 3.0L Microbiology 12/08/16 Blood Culture - Final, Complete No growth Assessment/Plan Assessment/Plan Assess & Plan/Chief Complaint ANASARCA SEPSIS - BLOOD CULTURE POSITIVE FOR GROUP G STREP FLUID OVERLOAD LOWER EXTREMITY EDEMA RENAL INSUFFICIENCY DIABETES MELLITUS HYPERTENSION SEVERE MORBID OBESITY ANEMIA ANASARCA WITH GROSS FLUID OVERLOAD AND LOWER EXTREMITY EDEMA - LASIX INCREASED TODAY FROM 40MG BID TO 80MG BID, STRICT I/O DAILY WEIGHTS. SEPSIS - FEVER - LACTIC ACID MILDLY ELEVATED - MAJORITY OF SYMPTOMS RESOLVED- CHECK BLOOD CULTURE, CHEST XRAY WAS NEGATIVE IN ER - UNABLE TO OBTAIN URINE - CANNOT CATH PATIENT - DR. ZARAGOZA ATTEMPTED WITHOUT SUCCESS. INITIALLY ON ZOSYN AND VANCOMYCIN, THE ZOSYN WAS STOPPED AND TODAY I HAVE STOPPED VANCOMYCIN AND DUE TO HIS IMPROVED SYMPTOMS ON THE MEROPENEM AND CLINDA STARTED - WE WILL CONTINUE WITH THIS CURRENT MANAGEMENT. RENAL INSUFFICIENCY - MONITOR RENAL FUNCTION, HOLD CAPTOPRIL. DIABETES MELLITUS - SLIDING SCALE INSULIN. MONITOR SYMPTOMS - ADA DIET. HYPERTENSION - RESTART HOME MEDICATIONS EXCEPT FOR JOSH INHIBITOR DUE TO PATIENTS ACUTE RENAL INSUFFICIENCY. ANEMIA - MONITOR SYMPTOMS WHILE ON LOVENOX. GI PROPHYLAXIS - PPI - STARTED ON PROTONIX DVT PROPHYLAXIS - STARTED SCD'S AND LOVENOX. Clinical Quality Measures DVT/VTE Risk/Contraindication: Risk Factor Score Per Nursin RFS Level Per Nursing on Admit: 4+=Very High NITO NICOLAS MD Dec 17, 2016 08:59
[2016-12-17] MEDS ORDERED: FUROSEMIDE 40 MG/4 ML INJ (LASIX) IVP NR (09:00)
[2016-12-17] MEDS: meTOprolol TARTRATE 25 MG (LOPRESSOR) TABLET PO SCH ×2 (09:06→20:30)
[2016-12-17] MEDS: GABAPENTIN 400 MG (NEURONTIN) CAP PO SCH ×3 (09:07→20:31)
[2016-12-17] MEDS: ENOXAPARIN 40 MG/0.4 ML (LOVENOX) SYR SC SCH ×2 (09:08→20:31)
[2016-12-17 16:00] VITALS: BP 144/75
[2016-12-17] MEDS: NS IV 1000 ML 1,000 ML IV SCH (17:31)
[2016-12-18 00:05] VITALS: BP 167/82
[2016-12-18] MEDS: CLINDAMYCIN INJECTION 900 MG in NS (IVPB) 50 ML IV SCH ×3 (02:57→18:43)
[2016-12-18] MEDS: MEROPENEM 500 MG in NS (IVPB) 100 ML IV SCH ×4 (05:32→23:13)
[2016-12-18] MEDS: inSUlin (REGULAR) HUMAN 1 UNIT/0.01 ML (CHARGE PER UNIT) SC SCH ×4 (06:13→21:16)
[2016-12-18] MEDS: FUROSEMIDE 40 MG/4 ML INJ (LASIX) IVP SCH ×2 (06:48→16:45)
[2016-12-18 08:00] VITALS: BP 115/61
[2016-12-18] MEDS: meTOprolol TARTRATE 25 MG (LOPRESSOR) TABLET PO SCH ×2 (08:21→21:16)
[2016-12-18] MEDS: ENOXAPARIN 40 MG/0.4 ML (LOVENOX) SYR SC SCH ×2 (08:21→21:16)
[2016-12-18] MEDS: GABAPENTIN 400 MG (NEURONTIN) CAP PO SCH ×3 (08:21→21:16)
[2016-12-18] MEDS ORDERED: KCL 20 MEQ TAB (K-DUR) PO NR (08:45)
[2016-12-18] MEDS ORDERED: meTOprolol TARTRATE 25 MG (LOPRESSOR) TABLET PO NR (08:45)
--- NOTE | 2016-12-18 08:48 | Progress Note (SOAP) ---
Subjective Date Seen by Provider: Dec 18, 2016 Time Seen by Provider: 08:40 Subjective/Events-last exam PT REPORTS THAT HE IS FEELING BETTER TODAY. HE STATES THAT HE IS WANTING TO GO HOME TODAY. HE REPORTS THAT HE IS HAVING INCONTINENCE, WANTS TO GO TO THE [facility]. Review of Systems General: Fatigue, Malaise Pulmonary: Dyspnea, No Cough Cardiovascular: No: Chest Pain Gastrointestinal: No: Abdominal Pain, Nausea Genitourinary: No Dysuria Neurological: Confusion (INTERMITTENT), Weakness Objective Exam Vital Signs Date Time Temp Pulse Resp B/P (MAP) Pulse Ox O2 Delivery O2 Flow Rate FiO2 12/18/16 07:33 Nasal Cannula 3.00 12/18/16 02:23 98.4 12/18/16 00:05 100.4 89 20 167/82 96 Nasal Cannula 3.00 12/17/16 20:30 Nasal Cannula 3.00 12/17/16 16:00 97.3 97 16 144/75 96 Nasal Cannula 3.00 I & O 12/18/16 07:00 Intake Total 4062 ml Output Total 8775 ml Balance -4713 ml Capillary Refill : Less Than 3 Seconds General Appearance: WD/WN, Obese HEENT: PERRL/EOMI Neck: Full Range of Motion, Supple Respiratory: Chest Non Tender, Lungs Clear, Normal Breath Sounds Cardiovascular: Regular Rate, Rhythm Gastrointestinal: normal bowel sounds, other (OBESE ABDOMEN WITH EDEMA FROM CHEST TO FEET) Extremity: Pedal Edema Neurologic/Psychiatric: Alert, Oriented x3, Normal Mood/Affect Skin: Erythema (IMPROVING ACROSS CHEST FROM RIGHT BREAST TO ABDOMEN) Results Lab Laboratory Tests 12/17/16 10:49: Glucometer 174H 12/17/16 15:58: Glucometer 187H 12/17/16 20:34: Glucometer 244H 12/18/16 05:48: Glucometer 137H Microbiology 12/08/16 Blood Culture - Final, Complete No growth Assessment/Plan Assessment/Plan Assess & Plan/Chief Complaint ANASARCA SEPSIS - BLOOD CULTURE POSITIVE FOR GROUP G STREP FLUID OVERLOAD LOWER EXTREMITY EDEMA RENAL INSUFFICIENCY DIABETES MELLITUS HYPERTENSION SEVERE MORBID OBESITY ANEMIA ANASARCA WITH GROSS FLUID OVERLOAD AND LOWER EXTREMITY EDEMA - CONTINUE WITH LASIX - 80MG BID, MONITOR DAILY WEIGHTS, ELEVATE RIGHT FLANK OFF OF BED - WEIGHT DOWN 10 KG SEPSIS - FEVER - LACTIC ACID MILDLY ELEVATED - MAJORITY OF SYMPTOMS RESOLVED- CHECK BLOOD CULTURE, CHEST XRAY WAS NEGATIVE IN ER - UNABLE TO OBTAIN URINE - CANNOT CATH PATIENT - DR. ZARAGOZA ATTEMPTED WITHOUT SUCCESS. IMPROVED SYMPTOMS ON THE MEROPENEM AND CLINDA - WE WILL CONTINUE WITH THIS CURRENT MANAGEMENT. ELEVATED TEMPERATURE LAST NIGHT - CHECK CXR - CONTINUE CURRENT ANTIBIOTICS - SUSPECT ATELECTASIS RENAL INSUFFICIENCY - MONITOR RENAL FUNCTION - IMPROVED OFF OF CAPTOPRIL DIABETES MELLITUS - SLIDING SCALE INSULIN. MONITOR SYMPTOMS - ADA DIET. HYPERTENSION - RESTART HOME MEDICATIONS EXCEPT FOR JSOH INHIBITOR DUE TO PATIENTS ACUTE RENAL INSUFFICIENCY. ANEMIA - MONITOR SYMPTOMS WHILE ON LOVENOX. GI PROPHYLAXIS - PPI - STARTED ON PROTONIX DVT PROPHYLAXIS - STARTED SCD'S (PT REFUSES TO WEAR) AND LOVENOX. Clinical Quality Measures DVT/VTE Risk/Contraindication: Risk Factor Score Per Nursin RFS Level Per Nursing on Admit: 4+=Very High NITO NICOLAS MD Dec 18, 2016 08:48
[2016-12-18] MEDS: LACTOBACILLUS Acidoph/Bulgar (LACTINEX/FLORANEX) TAB PO SCH ×2 (10:36→16:48)
[2016-12-18] MEDS: NS IV 1000 ML 1,000 ML IV SCH (11:46)
[2016-12-18] MEDS ORDERED: AMOX-358 PO (13:21)
--- NOTE | 2016-12-18 13:26 | Diagnostic Imaging Report ---
EXAMINATION: Portable upright radiograph of the chest. INDICATION: Shortness of breath. Cough. Anasarca. FINDINGS: This radiograph is suboptimal with significant opacities around the mid and lower lung zones, probably superimposition artifacts on this portable radiograph. There is no definitive focal infiltrate. No effusion or pneumothorax. The mediastinum and daniel appear unremarkable. There is moderate cardiomegaly. IMPRESSION: Cardiomegaly. Suboptimal evaluation of the lungs due to portable technique and large patient body habitus. Dictated by: Dictated on workstation # [id number]
[2016-12-18 16:00] VITALS: BP 129/79
[2016-12-18 20:08] VITALS: BP 105/59
[2016-12-18] MEDS: HYDROcodone/APAP 10 MG/325 MG (LORTAB) TAB PO PRN (21:16)
[2016-12-18 23:40] VITALS: BP 102/54
[2016-12-19] MEDS ORDERED: DILTIAZEM 60 MG (CARDIZEM) TAB PO ONE (00:30)
[2016-12-19] MEDS ORDERED: DILTIAZEM 120 MG (CARDIZEM CD) CAP PO ONE (00:34)
[2016-12-19 05:51] LABS: MEAN PLATELET VOLUME 10.7 FL (7.4-10.4); RED BLOOD COUNT 4.46 10^6/uL (4.35-5.85); RED CELL DISTRIBUTION WIDTH 15.6 % (10.0-14.5); WHITE BLOOD COUNT 9.8 10^3/uL (4.3-11.0)
[2016-12-19] MEDS: CLINDAMYCIN 150 MG (CLEOCIN) CAP PO SCH ×2 (06:13→13:42)
[2016-12-19] MEDS: LACTOBACILLUS Acidoph/Bulgar (LACTINEX/FLORANEX) TAB PO SCH ×3 (06:13→16:48)
[2016-12-19 06:19] LABS: ANION GAP 15 MMOL/L (5-14); BLOOD UREA NITROGEN 17 MG/DL (7-18); BUN/CREATININE RATIO 22; CARBON DIOXIDE 39 MMOL/L (21-32); CHLORIDE 86 MMOL/L (98-107); CREATININE SERUM 0.77 MG/DL (0.60-1.30); POTASSIUM 3.8 MMOL/L (3.6-5.0); SODIUM 140 MMOL/L (135-145)
[2016-12-19 06:20] LABS: ALANINE AMINOTRANSFERASE 7 U/L (0-55); ALBUMIN 2.8 GM/DL (3.2-4.5); ASPARTATE AMINO TRANSFERASE 18 U/L (5-34); BILIRUBIN,TOTAL 0.7 MG/DL (0.1-1.0); CALCIUM 8.9 MG/DL (8.5-10.1); GFR ESTIMATED > 60; GLUCOSE 139 MG/DL (70-105); TOTAL PROTEIN 6.3 GM/DL (6.4-8.2)
[2016-12-19] MEDS: inSUlin (REGULAR) HUMAN 1 UNIT/0.01 ML (CHARGE PER UNIT) SC SCH ×3 (06:46→16:49)
[2016-12-19] MEDS ORDERED: KCL 20 MEQ TAB (K-DUR) PO SCH (07:00)
--- NOTE | 2016-12-19 07:15 | D/C HH Face to Face Order ---
D/C Face to Face Orders Instructions for Patient Patient Instructions/FollowUp: TO CALL THE OFFICE FOR ANY ACUTE CONCERN Physician to follow Patient: FIDENCIO Discharge Diet for Home: Regular Diet Patient Data-Allergies,Ht & Wt Patient Allergies: Coded Allergies: aspirin (Verified Adverse Reaction, Intermediate, CHEST PAIN, 01/22/13) Height (Feet): 5 Height (Inches): 10.00 Weight (Pounds): 509 Weight (Ounces): 5.0 Home Health Need/Face to Face Date of Face to Face: Dec 19, 2016 Clinical Findings: Non or partial weight bearing I have seen Pt [id number]: Yes Discharged To: Home Diagnosis/Conditions: ANASARCA SEPSIS - BLOOD CULTURE POSITIVE FOR GROUP G STREP FLUID OVERLOAD LOWER EXTREMITY EDEMA RENAL INSUFFICIENCY DIABETES MELLITUS HYPERTENSION SEVERE MORBID OBESITY ANEMIA Problems/Diagnosis/Condition: Patient is Homebound due to: Muscle weakness, Non-weight bearing, Pain w/ ambulation Homebound Status Due to the above stated illness, injury or surgical procedure (medical condition or diagnosis) and associated clinical findings, the patient is homebound because of his/her inability to leave home except with aid of a supportive device and/or person AND leaving the home requires a considerable and taxing effort or is medically contraindicated. Pt req the following assistanc: Aid of another person (PT DOES NOT WALK - FULLY REQUIRES OTHERS TO HELP HIM OUT OF BED TO CHAIR, ETC) Home Health Nursing Orders Home Health Services Order: Nursing Services, Office Machines Teacher-Evaluate & Treat, Physical Therapy-Evaluate & Treat Home Health Infusion Therapy Line Start Date: Dec 14, 2016 Line Start Time: 1600 Therapy Orders Therapy Orders: Physical Therapy, PT to assess for OT Certify Stmt I certify that this patient is under my care and that I, a nurse practitioner or a physician; a assistant scientist working with me, had a face to face encounter that - meets the physician face to face encounter requirements with this patient as dated. Medication List: Active Scripts Active Augmentin 875-125 Tablet (Amoxicillin/Potassium Clav) 1 Each Tablet 1 Each PO BID 7 Days Reported Novolin 70-30 100 Unit/ml Vial (Insulin NPH Hum/Reg Insulin Hm) 100 Unit/1 Ml Vial 50 Unit SQ DAILY PRN Gabapentin 800 Mg Tablet 800 Mg PO TID Hydrocodon-Acetaminophn 10-325 (Hydrocodone/Acetaminophen) 1 Each Tablet 2 Tab PO Q6H PRN Morphine Sulfate 15 Mg Tablet 15 Mg PO BID PRN Novolin 70-30 100 Unit/ml Vial (Insulin NPH Hum/Reg Insulin Hm) 100 Unit/1 Ml Vial 100 Units SQ HS Furosemide 80 Mg Tablet 80 Mg PO SUSA Potassium Chloride 10 Meq Tablet.er 10 Meq PO SUSA Lab results: Laboratory Tests Test 12/18/16 10:58 12/18/16 16:09 12/18/16 20:07 12/19/16 05:40 Range/Units Glucometer 200 H 202 H 213 H 70-110 MG/DL White Blood Count 9.8 4.3-11.0 10^3/uL Red Blood Count 4.46 4.35-5.85 10^6/uL Hemoglobin 11.6 L 13.3-17.7 G/DL Hematocrit 41 40-54 % Mean Corpuscular Volume 91 80-99 FL Mean Corpuscular Hemoglobin 26 25-34 PG Mean Corpuscular Hemoglobin Concent 29 L 32-36 G/DL Red Cell Distribution Width 15.6 H 10.0-14.5 % Platelet Count 237 130-400 10^3/uL Mean Platelet Volume 10.7 H 7.4-10.4 FL Sodium Level 140 135-145 MMOL/L Potassium Level 3.8 3.6-5.0 MMOL/L Chloride Level 86 L 98-107 MMOL/L Carbon Dioxide Level 39 H 21-32 MMOL/L Anion Gap 15 H 5-14 MMOL/L Blood Urea Nitrogen 17 7-18 MG/DL Creatinine 0.77 0.60-1.30 MG/DL Estimat Glomerular Filtration Rate > 60 BUN/Creatinine Ratio 22 Glucose Level 139 H 70-105 MG/DL Calcium Level 8.9 8.5-10.1 MG/DL Total Bilirubin 0.7 0.1-1.0 MG/DL Aspartate Amino Transf (AST/SGOT) 18 5-34 U/L Alanine Aminotransferase (ALT/SGPT) 7 0-55 U/L Alkaline Phosphatase 63 40-136 U/L Total Protein 6.3 L 6.4-8.2 GM/DL Albumin 2.8 L 3.2-4.5 GM/DL My orders: Orders - NITO NICOLAS MD Metoprolol Tartrate (Ir) Tab (Lopressor (12/18/16 21:00) Cbc No Diff (12/19/16 05:00) Comprehensive Metabolic Panel (12/19/16 05:00) Chest 1 View, Ap/Pa Only (12/18/16 08:41) Lactobacillus/Bulgaricus Tab (Lactinex (12/18/16 11:00) Potassium Chloride (Tablet) (K Dur Table (12/19/16 07:00) Potassium Chloride (Tablet) (K Dur Table (12/18/16 08:45) Metoprolol Tartrate (Ir) Tab (Lopressor (12/18/16 08:45) Diltiazem Cd 24 Hr Capsule (Cardizem Cd (12/19/16 00:34) Attending Discharge (12/19/16 07:09) D/C With Home Health Services (12/19/16 07:09) NITO NICOLAS MD Dec 19, 2016 7:15 am
--- NOTE | 2016-12-19 07:16 | Discharge Summary ---
Diagnosis/Chief Complaint Date of Admission Dec 07, 2016 at 12:27 Date of Discharge Discharge Date: Dec 19, 2016 Discharge Time: 1100 Admission Diagnosis Admission Diagnosis ANASARCA FLUID OVERLOAD LOWER EXTREMITY EDEMA RENAL INSUFFICIENCY DIABETES MELLITUS HYPERTENSION SEVERE MORBID OBESITY ANEMIA Discharge Diagnosis ANASARCA FLUID OVERLOAD LOWER EXTREMITY EDEMA RENAL INSUFFICIENCY DIABETES MELLITUS HYPERTENSION SEVERE MORBID OBESITY ANEMIA Reason Hospital Visit PT IS A 61 Y/O MALE WHO IS KNOWN TO ME FROM CLINIC. HE PRESENTS TO THE HOSPITAL TODAY WITH WEAKNESS, FLUID OVERLOAD, AND PER HIS , WEIGHT GAIN OVER 20#. HE REPORTEDLY HAS HAD WEEPING OF FLUID FROM HIS LEGS, ABDOMEN. Discharge Summary Discharge Physical Examination Allergies: Coded Allergies: aspirin (Verified Adverse Reaction, Intermediate, CHEST PAIN, 01/22/13) Vitals & I&Os Vital Signs Date Time Temp Pulse Resp B/P (MAP) Pulse Ox O2 Delivery O2 Flow Rate FiO2 12/18/16 23:40 98.3 20 102/54 96 Nasal Cannula 3.00 12/18/16 20:08 140 Hospital Course Pending Labs Laboratory Tests 12/19/16 05:40: White Blood Count 9.8, Red Blood Count 4.46, Hemoglobin 11.6, Hematocrit 41, Mean Corpuscular Volume 91, Mean Corpuscular Hemoglobin 26, Mean Corpuscular Hemoglobin Concent 29, Red Cell Distribution Width 15.6, Platelet Count 237, Mean Platelet Volume 10.7, Sodium Level 140, Potassium Level 3.8, Chloride Level 86, Carbon Dioxide Level 39, Anion Gap 15, Blood Urea Nitrogen 17, Creatinine 0.77, Estimat Glomerular Filtration Rate > 60, BUN/Creatinine Ratio 22, Glucose Level 139, Calcium Level 8.9, Total Bilirubin 0.7, Aspartate Amino Transf (AST/SGOT) 18, Alanine Aminotransferase (ALT/SGPT) 7, Alkaline Phosphatase 63, Total Protein 6.3, Albumin 2.8 Discharge Instructions to patient/family Please see electonic discharge instructions given to patient. Discharge Medications Reviewed and agree with Discharge Medication list on patient's Discharge Instruction sheet Clinical Quality Measures DVT/VTE Risk/Contraindication: Risk Factor Score Per Nursin RFS Level Per Nursing on Admit: 4+=Very High NITO NICOLAS MD Dec 19, 2016 07:16
[2016-12-19] MEDS ORDERED: FURO-124 PO (07:39)
[2016-12-19 08:00] VITALS: BP 122/60
[2016-12-19] MEDS: NS IV 1000 ML 1,000 ML IV SCH (08:13)
[2016-12-19] MEDS: GABAPENTIN 400 MG (NEURONTIN) CAP PO SCH ×2 (10:00→13:42)
[2016-12-19] MEDS: meTOprolol TARTRATE 25 MG (LOPRESSOR) TABLET PO SCH (10:01)
[2016-12-19] MEDS: ENOXAPARIN 40 MG/0.4 ML (LOVENOX) SYR SC SCH (10:01)
[2016-12-19] MEDS: HYDROcodone/APAP 10 MG/325 MG (LORTAB) TAB PO PRN (10:42)
[2016-12-19 15:38] VITALS: BP 110/78
== END 2016-12-19 17:45 | disposition home health service (06) | DRG 947 ==
LOC: EDUNIT# 10:07 → ER 10:08 → 4TH 12:27 → ENPENDDIS 12-19 11:00
PROVIDERS: ADMIT Family Medicine; ATTEND Family Medicine
DX: R60.1 Generalized edema (principal); A40.1 Sepsis due to streptococcus, group B; L03.311 Cellulitis of abdominal wall; L03.115 Cellulitis of right lower limb; L03.116 Cellulitis of left lower limb; E66.2 Morbid (severe) obesity with alveolar hypoventilation; Z68.44 Body mass index [BMI] 60.0-69.9, adult; N28.9 Disorder of kidney and ureter, unspecified; Z66 Do not resuscitate; I89.0 Lymphedema, not elsewhere classified; I87.2 Venous insufficiency (chronic) (peripheral); D64.9 Anemia, unspecified; E11.43 Type 2 diabetes mellitus with diabetic autonomic (poly)neuropathy; J44.9 Chronic obstructive pulmonary disease, unspecified; I10 Essential (primary) hypertension; E78.00 Pure hypercholesterolemia, unspecified; Z79.4 Long term (current) use of insulin; Z87.891 Personal history of nicotine dependence
CPT/HCPCS: 36415; 71010; 80053; 80202; 82962; 83605; 85025; 85027; 87040; 87077; 94760

== ENCOUNTER 2017-01-23 19:46 | Inpatient (IN) | payer OTHER ==
[~2017-01-23] VITALS: Ht 177.8 cm; Wt 211.4 kg
[~2017-01-23 19:46] MED LIST changes: +AMOX-358 PO; +FURO-124 PO
--- NOTE | 2017-01-23 19:54 | ED General ---
General Stated Complaint: WEAKNESS Source of Information: Patient, EMS, Family Exam Limitations: No Limitations History of Present Illness Time Seen by Provider: 19:52 Initial Comments To ER per EMS from home with reports of weakness increasing for the past few days. EMS was called by the patient's was concerned about weight gain. Patient has congestive heart failure and was recently admitted about a month ago for anasarca. Patient arrives with 3 firemen and 3 paramedics requires a total of 6 individuals to move this patient. He estimates his weight to be in the 450-500 pound range. He is bedbound at home. Primary care is Dr. Treviño. Has not actually weighed himself recently. He states that he does take Lasix daily and has not missed any doses of this. He denies any worse than usual shortness of breath unless he exerts himself such as rolling himself over in bed. He denies chest pain. He does wear oxygen at 2-3 L around the clock at home. who is an RN states that he takes Lasix 40 mg daily during the week in the evening and 80 mg in the evening on weekends. Timing/Duration: Getting Worse Severity: Moderate Associated Systoms: Malaise Allergies and Home Medications Allergies Coded Allergies: aspirin (Verified Adverse Reaction, Intermediate, CHEST PAIN, 01/22/13) Home Medications Amoxicillin/Potassium Clav 1 Each Tablet, 1 EACH PO BID for 7 Days, #14 Prescribed by: NITO TREVIÑO on 12/18/16 1321 Furosemide 80 Mg Tablet, 80 MG PO SuSa, (Reported) Furosemide 40 Mg Tablet, 40 MG PO UD for 30 Days, #30 40MG DAILY THURSDAY THROUGH THURSDAY AND 80MG ON WEEKENDS Prescribed by: NITO TREVIÑO on 12/19/16 0739 Gabapentin 800 Mg Tablet, 800 MG PO TID, (Reported) Hydrocodone/Acetaminophen 1 Each Tablet, 2 TAB PO Q6H PRN for PAIN-MODERATE, ( Reported) Insulin NPH Hum/Reg Insulin Hm 100 Unit/1 Ml Vial, 100 UNITS SQ HS, (Reported) Insulin NPH Hum/Reg Insulin Hm 100 Unit/1 Ml Vial, 50 UNIT SQ DAILY PRN for BS ABOVE 150, (Reported) Morphine Sulfate 15 Mg Tablet, 15 MG PO BID PRN for PAIN-SEVERE, (Reported) Potassium Chloride 10 Meq Tablet.er, 10 MEQ PO SuSa, (Reported) Constitutional: see HPI EENTM: see HPI Respiratory: see HPI, dyspnea on exertion Cardiovascular: no symptoms reported Musculoskeletal: no symptoms reported Skin: no symptoms reported Psychiatric/Neurological: No Symptoms Reported Hematologic/Lymphatic: No Symptoms Reported Past Rjkzbxj-Xwsnrg-Yhhbgi Hx Patient Social History Former Smoker, Quit: Dec 07, 1994 2nd Hand Smoke Exposure: No Recent Hopitalizations: No Immunizations Up To Date Tetanus Booster (TDap): Unknown PED Vaccines UTD: Yes Date of Pneumonia Vaccine: Jan 24, 2016 Seasonal Allergies Seasonal Allergies: No Surgeries 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) Surgeries: Ear Surgery, Tonsillectomy Respiratory History of Respiratory Disorde: No Respiratory Disorders: COPD Cardiovascular History of Cardiac Disorders: Yes Cardiac Disorders: Chronic Edema/Swelling, High Cholesterol, Hypertension Neurological History of Neurological Disord: Yes (NEUROPATHY FINGERS/FEET) Neurological Disorders: Neuropathy Reproductive System Hx Reproductive Disorders: No Sexually Transmitted Disease: No HIV/AIDS: No Genitourinary History of Genitourinary Disor: Yes Genitourinary Disorders: UTI-Chronic Gastrointestinal History of Gastrointestinal Di: Yes (HX OF CDIFF LAST ADMISSION) Gastrointestinal Disorders: Abdominal Hernia Musculoskeletal History of Musculoskeletal Dis: Yes (HERINATED CERVICAL DISK, CHRONIC BILATERAL KNEE PAIN ) Musculoskeletal Disorders: Arthritis Endocrine History of Endocrine Disorders: Yes (TYPE II; MORBID OBESITY) Endocrine Disorders: Diabetes, Insulin dep HEENT Loss of Vision: Denies Hearing Impairment: Denies Cancer History of Cancer: No Psychosocial History of Psychiatric Problem: No Integumentary History of Skin or Integumenta: Yes (CELLULITIS OF LEGS AND PANNUS ) Blood Transfusions History of Blood Disorders: No Family Medical History Significant Family History: Heart Disease, Diabetes, Hypertension Family Medial History: Cardiovascular disease 19 MOTHER Diabetes mellitus 19 MOTHER FH: stomach cancer 19 FATHER Hypercholesterolemia Hypertension 19 MOTHER Kidney disease Myocardial infarction 19 MOTHER Osteoporosis 19 FATHER Physical Exam Vital Signs Vital Sign - Last 12Hours 01/23/17 19:47 Temp 98.5 Pulse 88 Resp 28 B/P (MAP) 126/89 Pulse Ox 91 O2 Delivery Nasal Cannula O2 Flow Rate 2.00 Capillary Refill : General Appearance: No Apparent Distress, WD/WN, Obese Eyes: Bilateral Eye Normal Inspection, Bilateral Eye PERRL, Bilateral Eye EOMI HEENT: PERRL/EOMI, TMs Normal Neck: Full Range of Motion, Normal Inspection Respiratory: No Accessory Muscle Use, No Respiratory Distress, Decreased Breath Sounds Cardiovascular: Regular Rate, Rhythm, Normal Peripheral Pulses Gastrointestinal: Non Tender, Soft Extremity: Pedal Edema (chronic brownish discoloration lower extremities from venous insufficiency. He does have pitting edema of the thighs, the abdomen and even has some swelling of the upper and lower eyelids.) Neurologic/Psychiatric: Alert, Oriented x3 Skin: Normal Color, Warm/Dry Focused Exam Evaluation Lactate Level Laboratory Tests 01/23/17 20:20: Lactic Acid Level 1.11 Lactic Acid Level Laboratory Tests Test 01/23/17 20:20 Lactic Acid Level 1.11 MMOL/L (0.50-2.00) Progress/Results/Core Measures Results/Orders Lab Results Laboratory Tests Test 01/23/17 20:19 01/23/17 20:20 01/23/17 20:30 Range/Units Blood Gas Puncture Site RIGHT RADIAL Blood Gas Patient Temperature 98.3 Arterial Blood pH 7.28 *L 7.37-7.43 Arterial Blood Partial Pressure CO2 80 *H 35-45 MMHG Arterial Blood Partial Pressure O2 82 79-93 MMHG Arterial Blood HCO3 36 H 23-27 MMOL/L Arterial Blood Total CO2 38.7 H 21.0-31.0 MMOL/L Arterial Blood Oxygen Saturation 96 94-100 % Arterial Blood Base Excess 9.5 H -2.5-2.5 MMOL/L Ubaldo Test YES-POS Blood Gas Ventilator Setting NO Blood Gas Inspired Oxygen 3L White Blood Count 6.7 4.3-11.0 10^3/uL Red Blood Count 4.44 4.35-5.85 10^6/uL Hemoglobin 11.7 L 13.3-17.7 G/DL Hematocrit 43 40-54 % Mean Corpuscular Volume 96 80-99 FL Mean Corpuscular Hemoglobin 26 25-34 PG Mean Corpuscular Hemoglobin Concent 27 L 32-36 G/DL Red Cell Distribution Width 16.3 H 10.0-14.5 % Platelet Count 217 130-400 10^3/uL Mean Platelet Volume 10.8 H 7.4-10.4 FL Neutrophils (%) (Auto) 74 42-75 % Lymphocytes (%) (Auto) 12 12-44 % Monocytes (%) (Auto) 9 0-12 % Eosinophils (%) (Auto) 4 0-10 % Basophils (%) (Auto) 0 0-10 % Neutrophils # (Auto) 5.0 1.8-7.8 X 10^3 Lymphocytes # (Auto) 0.8 L 1.0-4.0 X 10^3 Monocytes # (Auto) 0.6 0.0-1.0 X 10^3 Eosinophils # (Auto) 0.3 0.0-0.3 10^3/uL Basophils # (Auto) 0.0 0.0-0.1 10^3/uL Sodium Level 139 135-145 MMOL/L Potassium Level 4.9 3.6-5.0 MMOL/L Chloride Level 96 L 98-107 MMOL/L Carbon Dioxide Level 34 H 21-32 MMOL/L Anion Gap 9 5-14 MMOL/L Blood Urea Nitrogen 15 7-18 MG/DL Creatinine 1.02 0.60-1.30 MG/DL Estimat Glomerular Filtration Rate > 60 BUN/Creatinine Ratio 15 Glucose Level 108 H 70-105 MG/DL Lactic Acid Level 1.11 0.50-2.00 MMOL/L Calcium Level 9.0 8.5-10.1 MG/DL Magnesium Level 2.1 1.8-2.4 MG/DL Total Bilirubin 0.7 0.1-1.0 MG/DL Aspartate Amino Transf (AST/SGOT) 15 5-34 U/L Alanine Aminotransferase (ALT/SGPT) 7 0-55 U/L Alkaline Phosphatase 80 40-136 U/L Troponin I < 0.30 <0.30 NG/ML B-Type Natriuretic Peptide 214.7 H <100.0 PG/ML Total Protein 7.4 6.4-8.2 GM/DL Albumin 3.4 3.2-4.5 GM/DL Urine Color YELLOW Urine Clarity CLEAR Urine pH 5 5-9 Urine Specific [place] 1.020 1.016-1.022 Urine Protein 1+ H NEGATIVE Urine Glucose (UA) NEGATIVE NEGATIVE Urine Ketones NEGATIVE NEGATIVE Urine Nitrite NEGATIVE NEGATIVE Urine Bilirubin NEGATIVE NEGATIVE Urine Urobilinogen NORMAL NORMAL MG/DL Urine Leukocyte Esterase NEGATIVE NEGATIVE Urine RBC (Auto) NEGATIVE NEGATIVE Urine RBC NONE /HPF Urine WBC 0-2 /HPF Urine Crystals NONE /LPF Urine Bacteria NEGATIVE /HPF Urine Casts NONE /LPF Urine Mucus NEGATIVE /LPF Urine Culture Indicated NO My Orders Orders - MARLEN OLIVIER MANUAL QA TESTER Cbc With Automated Diff (01/23/17 19:50) Troponin I (01/23/17 19:50) Ekg Tracing (01/23/17 19:50) Magnesium (01/23/17 19:50) Comprehensive Metabolic Panel (01/23/17 19:50) Ua Culture If Indicated (01/23/17 19:50) Chest 1 View, Ap/Pa Only (01/23/17 19:50) BNP (01/23/17 19:50) Saline Lock/Iv-Start (01/23/17 19:50) Furosemide Injection (Lasix Injection) (01/23/17 20:00) Arterial Blood Gas (01/23/17 20:08) Blood Culture (01/23/17 20:08) Lactic Acid Analyzer (01/23/17 20:08) Wound Culture (01/23/17 20:08) Medications Given in ED Current Medications Medications Dose Ordered Sig/Ara Route Start Time Stop Time Status Last Admin Dose Admin Furosemide 80 mg ONCE ONCE IVP 01/23/17 20:00 01/23/17 20:01 DC 01/23/17 20:04 80 MG Vital Signs/I&O Vital Sign - Last 12Hours 01/23/17 19:47 Temp 98.5 Pulse 88 Resp 28 B/P (MAP) 126/89 Pulse Ox 91 O2 Delivery Nasal Cannula O2 Flow Rate 2.00 Diagnostic Imaging Diagonstic Imaging: Xray Comments NAME: [facility] REC#: [id number] PT STATUS: REG ER : 1955 PHYSICIAN: MARLEN OLIVIER APRN ADMIT DATE: 01/23/17/ER Draft Date of Exam:01/23/17 CHEST 1 VIEW, AP/PA ONLY INDICATION: 62-year-old male with weakness and shortness of breath COMPARISONS: 12/18/16 FINDINGS: Single view of the chest shows cardiomegaly with moderate central venous congestion. Film is underpenetrated. Scattered alveolar infiltrates, however, are suggested. Soft tissues and bony thorax are normal. IMPRESSION: Cardiomegaly with moderate congestive heart failure. Findings are accentuated by the portable technique and underpenetrated film. Dictated on workstation # [id number] Dict: 01/23/172122 Trans: 01/23/17 213 CECILIO [id number] Interpreted by: WILLARD ALDANA MD Electronically signed by: Departure Communication (Admissions) Time/Spoke to Admitting Phy: 21:55 Communication I discussed the case with Dr. Montaño who is on-call for Dr. Treviño. We will admit the patient, consult Dr. Flores and Dr. Richter in the morning Progress Notes Patient and his have paperwork with him to make him a DO NOT RESUSCITATE status Impression Impression: Primary Impression: Obesity hypoventilation syndrome Additional Impressions: Hypercapnia Anasarca Immobility Disposition: ADMITTED INPATIENT Condition: Critical Admissions Decision to Admit Reason: Admit from ER (General) Decision to Admit/Date: Jan 23, 2017 Time/Decision to Admit Time: 20:48 Departure-Patient Inst. Referrals: NITO TREVIÑO MD (PCP) Primary Care Physician TJ HOUSE DO (Family) Primary Care Physician MARLEN OLIVIER APRN Jan 23, 2017 19:54
[2017-01-23] MEDS ORDERED: FUROSEMIDE 40 MG/4 ML INJ (LASIX) IVP ONE (20:00)
[2017-01-23 20:26] LABS: ABG BASE EXCESS 9.5 MMOL/L (-2.5-2.5); ABG HCO3 36 MMOL/L (23-27); ABG OXYGEN SATURATION 96 % (94-100); ABG PO2 82 MMHG (79-93); ABG TCO2 38.7 MMOL/L (21.0-31.0)
[2017-01-23 20:28] LABS: ABG PH 7.28 (7.37-7.43)
[2017-01-23 20:29] LABS: ABG PCO2 80 MMHG (35-45); ALLENS TEST YES-POS; PATIENT TEMP 98.3
[2017-01-23 20:32] LABS: BASOPHILS % (AUTO) 0 % (0-10); EOSINOPHILS # (AUTO) 0.3 10^3/uL (0.0-0.3); EOSINOPHILS % (AUTO) 4 % (0-10); LYMPHOCYTES # (AUTO) 0.8 X 10^3 (1.0-4.0); LYMPHOCYTES % (AUTO) 12 % (12-44); MEAN CORPUSCULAR HEMOGLOBIN 26 PG (25-34); MEAN CORPUSCULAR HGB CONC 27 G/DL (32-36); MEAN CORPUSCULAR VOLUME 96 FL (80-99); MEAN PLATELET VOLUME 10.8 FL (7.4-10.4); MONOCYTES # (AUTO) 0.6 X 10^3 (0.0-1.0); MONOCYTES % (AUTO) 9 % (0-12); NEUTROPHILS % (AUTO) 74 % (42-75); PLATELET COUNT 217 10^3/uL (130-400); RED BLOOD COUNT 4.44 10^6/uL (4.35-5.85); RED CELL DISTRIBUTION WIDTH 16.3 % (10.0-14.5); WHITE BLOOD COUNT 6.7 10^3/uL (4.3-11.0)
[2017-01-23 20:49] LABS: BILIRUBIN,URINE NEGATIVE (NEGATIVE); KETONES,URINE NEGATIVE (NEGATIVE); LEUKOCYTE ESTERASE ,URINE NEGATIVE (NEGATIVE); NITRITE,URINE NEGATIVE (NEGATIVE); PH,URINE 5 (5-9); PROTEIN,URINE 1+ (NEGATIVE); UROBILINOGEN,URINE NORMAL (NORMAL)
[2017-01-23 20:57] LABS: ALANINE AMINOTRANSFERASE 7 U/L (0-55); ALBUMIN 3.4 GM/DL (3.2-4.5); ANION GAP 9 MMOL/L (5-14); ASPARTATE AMINO TRANSFERASE 15 U/L (5-34); BILIRUBIN,TOTAL 0.7 MG/DL (0.1-1.0); BLOOD UREA NITROGEN 15 MG/DL (7-18); BUN/CREATININE RATIO 15; CARBON DIOXIDE 34 MMOL/L (21-32); CHLORIDE 96 MMOL/L (98-107); CREATININE SERUM 1.02 MG/DL (0.60-1.30); GFR ESTIMATED > 60; GLUCOSE 108 MG/DL (70-105); MAGNESIUM 2.1 MG/DL (1.8-2.4); POTASSIUM 4.9 MMOL/L (3.6-5.0); SODIUM 139 MMOL/L (135-145); TOTAL PROTEIN 7.4 GM/DL (6.4-8.2)
[2017-01-23 21:02] LABS: TROPONIN I < 0.30 NG/ML (<0.30)
[2017-01-23 21:09] LABS: WBC,URINE 0-2 /HPF
--- NOTE | 2017-01-23 21:31 | Diagnostic Imaging Report ---
INDICATION: 62-year-old male with weakness and shortness of breath COMPARISONS: 12/18/16 FINDINGS: Single view of the chest shows cardiomegaly with moderate central venous congestion. Film is underpenetrated. Scattered alveolar infiltrates, however, are suggested. Soft tissues and bony thorax are normal. IMPRESSION: Cardiomegaly with moderate congestive heart failure. Findings are accentuated by the portable technique and underpenetrated film. Dictated by: Dictated on workstation # [id number]
[2017-01-23 23:00] VITALS: BP 125/57
[2017-01-24] MEDS: NS W/KCL 40 MEQ/L 1,000 ML IV SCH ×2 (00:12→13:35)
[2017-01-24] MEDS: NS W/KCL 40 MEQ/L 1,000 ML IV ONE ×2 (00:12→04:06)
[2017-01-24] MEDS ORDERED: RT-ALBUTEROL/IPRATROPIUM 3 ML (DUONEB) VIAL ONE (02:14)
[2017-01-24] MEDS ORDERED: RT-ALBUTEROL/IPRATROPIUM 3 ML (DUONEB) VIAL INH PRN (03:30)
[2017-01-24 04:00] VITALS: BP 147/67
[2017-01-24] MEDS: RT-ALBUTEROL/IPRATROPIUM 3 ML (DUONEB) VIAL INH SCH ×5 (07:07→22:31)
[2017-01-24 07:11] LABS: ABG BASE EXCESS 13.3 MMOL/L (-2.5-2.5); ABG HCO3 39 MMOL/L (23-27); ABG OXYGEN SATURATION 84 % (94-100); ABG PH 7.36 (7.37-7.43); ABG PO2 51 MMHG (79-93); ABG TCO2 41.5 MMOL/L (21.0-31.0)
[2017-01-24 07:17] LABS: ABG PCO2 72 MMHG (35-45); ALLENS TEST YES-POS; PATIENT TEMP 98.9
[2017-01-24] MEDS: inSUlin (REGULAR) HUMAN 1 UNIT/0.01 ML (CHARGE PER UNIT) SC SCH ×4 (07:36→22:17)
[2017-01-24 08:30] VITALS: BP 130/60
[2017-01-24] MEDS: FUROSEMIDE 40 MG/4 ML INJ (LASIX) IV SCH ×2 (09:05→22:51)
--- NOTE | 2017-01-24 11:35 | Consultation-Cardiology ---
HPI-Cardiology Cardiology Consultation Date of Consultation 01/24/17 Date of Admission Time Seen by Provider: 11:30 Indication: Irregular heartbeat HPI 62 years old gentleman with morbid obesity, BMI 80, bed bound secondary to morbid obesity. He has been noticing increasing fatigue and loss of energy in addition to anasarca. Weight gain. No significant shortness of breath. No palpitation. No syncope or near syncopal episode. Had multiple admissions for fluid retention. Home Medications & Allergies Allergies: Coded Allergies: aspirin (Verified Adverse Reaction, Intermediate, CHEST PAIN, 01/22/13) Home Medication List Reviewed: Yes AYF-Wkpanm-Tyyszc Hx Patient Social History Marital Status: Employed/Student: unemployed Alcohol Use: Denies Use Recreational Drug Use: No Smoking Status: Former Smoker 2nd Hand Smoke Exposure: No Recent Foreign Travel: No Recent Infectious Disease Expo: No Recent Hopitalizations: No Physical Abuse Screen: No Sexual Abuse: No Immunizations Up To Date Tetanus Booster (TDap): Unknown Date of Pneumonia Vaccine: Jan 24, 2016 Past Medical History past medical history as discussed below Family Medical History Significant Family History: Heart Disease, Diabetes, Hypertension Family History: 19 FATHER FH: stomach cancer Osteoporosis 19 MOTHER Cardiovascular disease Diabetes mellitus Hypertension Myocardial infarction Relation not specified for: Hypercholesterolemia Kidney disease Constitutional: see HPI, malaise, weakness, weight gain EENTM: see HPI, no symptoms reported Respiratory: see HPI, No cough, No dyspnea on exertion, No hemoptysis, No orthopnea, No phlegm, short of breath, No stridor, No wheezing, No other Cardiovascular: see HPI, No chest pain, edema, No Hx of Intervention, No palpitations, No syncope, No vascular heart diseas, No other Gastrointestinal: see HPI, other (Abdominal distention) Genitourinary: see HPI Musculoskeletal: see HPI Skin: see HPI Psychiatric/Neurological: No Symptoms Reported, See HPI Reviewed Test Results Reviewed Test Results Lab Laboratory Tests Test 01/23/17 20:19 01/23/17 20:20 01/23/17 20:30 01/24/17 06:52 Range/Units Blood Gas Puncture Site RIGHT RADIAL Blood Gas Patient Temperature 98.3 Arterial Blood pH 7.28 *L 7.37-7.43 Arterial Blood Partial Pressure CO2 80 *H 35-45 MMHG Arterial Blood Partial Pressure O2 82 79-93 MMHG Arterial Blood HCO3 36 H 23-27 MMOL/L Arterial Blood Total CO2 38.7 H 21.0-31.0 MMOL/L Arterial Blood Oxygen Saturation 96 94-100 % Arterial Blood Base Excess 9.5 H -2.5-2.5 MMOL/L Ubaldo Test YES-POS Blood Gas Ventilator Setting NO Blood Gas Inspired Oxygen 3L White Blood Count 6.7 4.3-11.0 10^3/uL Red Blood Count 4.44 4.35-5.85 10^6/uL Hemoglobin 11.7 L 13.3-17.7 G/DL Hematocrit 43 40-54 % Mean Corpuscular Volume 96 80-99 FL Mean Corpuscular Hemoglobin 26 25-34 PG Mean Corpuscular Hemoglobin Concent 27 L 32-36 G/DL Red Cell Distribution Width 16.3 H 10.0-14.5 % Platelet Count 217 130-400 10^3/uL Mean Platelet Volume 10.8 H 7.4-10.4 FL Neutrophils (%) (Auto) 74 42-75 % Lymphocytes (%) (Auto) 12 12-44 % Monocytes (%) (Auto) 9 0-12 % Eosinophils (%) (Auto) 4 0-10 % Basophils (%) (Auto) 0 0-10 % Neutrophils # (Auto) 5.0 1.8-7.8 X 10^3 Lymphocytes # (Auto) 0.8 L 1.0-4.0 X 10^3 Monocytes # (Auto) 0.6 0.0-1.0 X 10^3 Eosinophils # (Auto) 0.3 0.0-0.3 10^3/uL Basophils # (Auto) 0.0 0.0-0.1 10^3/uL Sodium Level 139 135-145 MMOL/L Potassium Level 4.9 3.6-5.0 MMOL/L Chloride Level 96 L 98-107 MMOL/L Carbon Dioxide Level 34 H 21-32 MMOL/L Anion Gap 9 5-14 MMOL/L Blood Urea Nitrogen 15 7-18 MG/DL Creatinine 1.02 0.60-1.30 MG/DL Estimat Glomerular Filtration Rate > 60 BUN/Creatinine Ratio 15 Glucose Level 108 H 70-105 MG/DL Lactic Acid Level 1.11 0.50-2.00 MMOL/L Calcium Level 9.0 8.5-10.1 MG/DL Magnesium Level 2.1 1.8-2.4 MG/DL Total Bilirubin 0.7 0.1-1.0 MG/DL Aspartate Amino Transf (AST/SGOT) 15 5-34 U/L Alanine Aminotransferase (ALT/SGPT) 7 0-55 U/L Alkaline Phosphatase 80 40-136 U/L Troponin I < 0.30 <0.30 NG/ML B-Type Natriuretic Peptide 214.7 H <100.0 PG/ML Total Protein 7.4 6.4-8.2 GM/DL Albumin 3.4 3.2-4.5 GM/DL Urine Color YELLOW Urine Clarity CLEAR Urine pH 5 5-9 Urine Specific [place] 1.020 1.016-1.022 Urine Protein 1+ H NEGATIVE Urine Glucose (UA) NEGATIVE NEGATIVE Urine Ketones NEGATIVE NEGATIVE Urine Nitrite NEGATIVE NEGATIVE Urine Bilirubin NEGATIVE NEGATIVE Urine Urobilinogen NORMAL NORMAL MG/DL Urine Leukocyte Esterase NEGATIVE NEGATIVE Urine RBC (Auto) NEGATIVE NEGATIVE Urine RBC NONE /HPF Urine WBC 0-2 /HPF Urine Crystals NONE /LPF Urine Bacteria NEGATIVE /HPF Urine Casts NONE /LPF Urine Mucus NEGATIVE /LPF Urine Culture Indicated NO Glucometer 112 H 70-110 MG/DL Test 01/24/17 07:00 Range/Units Blood Gas Puncture Site LT RAD Blood Gas Patient Temperature 98.9 Arterial Blood pH 7.36 L 7.37-7.43 Arterial Blood Partial Pressure CO2 72 *H 35-45 MMHG Arterial Blood Partial Pressure O2 51 L 79-93 MMHG Arterial Blood HCO3 39 H 23-27 MMOL/L Arterial Blood Total CO2 41.5 H 21.0-31.0 MMOL/L Arterial Blood Oxygen Saturation 84 L 94-100 % Arterial Blood Base Excess 13.3 H -2.5-2.5 MMOL/L Ubaldo Test YES-POS Blood Gas Ventilator Setting NO Blood Gas Inspired Oxygen 3L Physical Exam Vital Signs Vital Sign - Last 12Hours 01/23/17 19:47 Temp 98.5 Pulse 88 Resp 28 B/P (MAP) 126/89 Pulse Ox 91 O2 Delivery Nasal Cannula O2 Flow Rate 2.00 Capillary Refill : Less Than 3 Seconds General Appearance: WD/WN, Mild Distress Eyes: Bilateral Eye Normal Inspection, Bilateral Eye PERRL, Bilateral Eye EOMI HEENT: PERRL/EOMI, TMs Normal, Normal ENT Inspection, Pharynx Normal Neck: Full Range of Motion, Normal Inspection, Non Tender, Supple Respiratory: Chest Non Tender, Lungs Clear, Normal Breath Sounds, No Accessory Muscle Use, No Respiratory Distress Cardiovascular: Regular Rate, Rhythm, No Edema, No Gallop, No JVD, No Murmur, Normal Peripheral Pulses Gastrointestinal: Normal Bowel Sounds, No Organomegaly, No Pulsatile Mass, Non Tender, Soft Back: Normal Inspection, No CVA Tenderness, No Vertebral Tenderness Extremity: Normal Capillary Refill, Normal Inspection, Normal Range of Motion, Non Tender, No Calf Tenderness, Pedal Edema Neurologic/Psychiatric: Alert, Oriented x3, No Motor/Sensory Deficits, Normal Mood/Affect Skin: Normal Color, Other (Venous stasis changes in the lower extremities) Lymphatic: No Adenopathy A/P-Cardiology Admission Diagnosis Anasarca Irregular heartbeat Diabetes mellitus Morbid obesity Assessment/Plan Anasarca, fluid retention. Patient is maintained on Lasix IV. I will add Zaroxolyn and monitor renal function closely. Irregular heartbeat, EKG showed artifacts but appeared to be regular. Patient is in sinus rhythm. Continue to monitor telemetry. Chronic venous stasis changes, peripheral edema, continue with diuresis and monitor electrolytes. Diabetes mellitus, followed and managed by primary care physician COPD, morbid obesity, chronic CO2 retention. Managed by Dr. Flores Morbid obesity. Clinical Quality Measures DVT/VTE Risk/Contraindication: Risk Factor Score Per Nursin RFS Level Per Nursing on Admit: 4+=Very High BENJA WAYNE MD Jan 24, 2017 11:35
--- NOTE | 2017-01-24 11:51 | History & Physical-Hospitalist ---
HPI History of Present Illness: HPI/Chief Complaint CC: Dyspnea with volume overload HPI: This is a patient of Dr. Treviño'jeff who presented to the ER with reports of low oxygen level although he reports that he was not short of breath. He has multiple hospitalizations for anasarca and volume overload he remains DO NOT RESUSCITATE and DO NOT INTUBATE the cause of his morbid super obesity with BMI of 80 he is infrequently for IV diuretic therapy. He is CO2 was 88 on ABG with pH of 7.2 and he was placed on BiPAP therapy with good results. He at this current time is ordering lunch and I review and reconcile all of his home medication and denies any significant issues except for neuropathy in his feet. He just completed antibiotic therapy for acute on chronic cellulitis due to venous stasis dermatitis of his lower legs. Source: patient, RN/MD, caregiver Date Seen 01/24/17 Time Seen by Provider: 11:30 Attending Physician Florence Treviño MD PCP Florence Treviño MD Referring Physician Date of Admission Jan 23, 2017 at 20:56 Home Medications & Allergies Home Medications Reviewed patient Home Medication Reconciliation Form Allergies Allergies Coded Allergies aspirin (Verified Adverse Reaction, Intermediate, CHEST PAIN, 01/22/13) Past Spawnyw-Rzqdib-Ffrihm Hx Patient Social History Marrital Status: Employed/Student: unemployed Alcohol Use: Denies Use Recreational Drug Use: No Smoking Status: Former Smoker Former Smoker, Quit: Dec 07, 1994 2nd Hand Smoke Exposure: No Physical Abuse Screen: No Sexual Abuse: No Recent Foreign Travel: No Contact w/other who traveled: No Recent Hopitalizations: No Recent Infectious Disease Expo: No Immunizations Up To Date Tetanus Booster (TDap): Unknown Pediatric: Yes Date of Pneumonia Vaccine: Jan 24, 2016 Seasonal Allergies Seasonal Allergies: No 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) Ear Surgery, Tonsillectomy Respiratory Yes COPD, Sleep Apnea Cardiovascular Yes (CARDIOMEGALY, CHF) Chronic Edema/Swelling, High Cholesterol, Hypertension Neurological Yes (NEUROPATHY FINGERS/FEET) Neuropathy Reproductive System Hx Reproductive Disorders: No Sexually Transmitted Disease: No HIV/AIDS: No Genitourinary Yes UTI-Chronic Gastrointestinal Yes (HX OF CDIFF) Abdominal Hernia Musculoskeletal Yes (HERINATED CERVICAL DISK, CHRONIC BILATERAL KNEE PAIN ) Arthritis Endocrine History of Endocrine Disorders: Yes (TYPE II; MORBID OBESITY) Endocrine Disorders: Diabetes, Insulin dep HEENT Loss of Vision: Denies Hearing Impairment: Denies Cancer No Psychosocial History of Psychiatric Problem: No Integumentary History of Skin or Integumenta: Yes (CELLULITIS OF LEGS AND PANNUS ) Blood Transfusions History of Blood Disorders: No Family Medical History Significant Family History: Heart Disease, Diabetes, Hypertension Family Hx: Cardiovascular disease 19 MOTHER Diabetes mellitus 19 MOTHER FH: stomach cancer 19 FATHER Hypercholesterolemia Hypertension 19 MOTHER Kidney disease Myocardial infarction 19 MOTHER Osteoporosis 19 FATHER Review of Systems Constitutional: see HPI, weakness EENTM: no symptoms reported Respiratory: dyspnea on exertion Cardiovascular: no symptoms reported Gastrointestinal: no symptoms reported Genitourinary: decreased output Musculoskeletal: no symptoms reported Skin: no symptoms reported Psychiatric/Neurological: No Symptoms Reported All Other Systems Reviewed Negative Unless Noted: Yes Physical Exam Physical Exam Vital Signs Vital Sign - Last 12Hours 01/23/17 19:47 Temp 98.5 Pulse 88 Resp 28 B/P (MAP) 126/89 Pulse Ox 91 O2 Delivery Nasal Cannula O2 Flow Rate 2.00 Capillary Refill : Less Than 3 Seconds General Appearance: No Apparent Distress, WD/WN, Chronically ill, Obese Eyes: Bilateral Eye Normal Inspection, Bilateral Eye PERRL HEENT: PERRL/EOMI, Normal ENT Inspection, Pharynx Normal Neck: Full Range of Motion, Normal Inspection, Non Tender, Supple, Carotid Bruit Respiratory: Chest Non Tender, Normal Breath Sounds, No Accessory Muscle Use, No Respiratory Distress, Decreased Breath Sounds Cardiovascular: Regular Rate, Rhythm, No Edema, No Gallop, No JVD, No Murmur, Normal Peripheral Pulses Gastrointestinal: Normal Bowel Sounds, No Organomegaly, No Pulsatile Mass, Non Tender, Soft Back: Normal Inspection, No CVA Tenderness, No Vertebral Tenderness Extremity: Normal Capillary Refill, Normal Range of Motion, Non Tender, No Calf Tenderness, No Pedal Edema, Other (chronic venous stasis changes to lower legs severe) Neurologic/Psychiatric: Alert, Oriented x3, No Motor/Sensory Deficits, Normal Mood/Affect Skin: Normal Color, Warm/Dry Lymphatic: No Adenopathy Results Results/Procedures Lab Laboratory Tests 01/23/17 20:20 Assessment/Plan Admission Diagnosis Assessment: Anasarca severe and recurrent Lower extremity edema chronic CRI DM HTN Severe morbid obesity Anemia of chronic disease Assessment and Plan Plan: IV diuretic I appreciate Dr. Richter consultation Maintain oxygen therapy CPAP therapy Monitor closely Proctosol all home meds including pain medication Clinical Quality Measures DVT/VTE Risk/Contraindication: Risk Factor Score Per Nursin RFS Level Per Nursing on Admit: 4+=Very High WOJCIECH SIMMS DO Jan 24, 2017 11:51
[2017-01-24 12:00] VITALS: BP 172/81
[2017-01-24] MEDS ORDERED: inSUlin NPH/REG (NovoLIN 70/30) CHARGE PER UNIT SQ PRN (12:00)
[2017-01-24] MEDS: METOLAZONE 5 MG (ZAROXOLYN) TAB PO SCH (12:03)
[2017-01-24] MEDS: KCL 10 MEQ TAB (MICRO K) PO SCH (13:12)
[2017-01-24] MEDS: GABAPENTIN 400 MG (NEURONTIN) CAP PO SCH ×2 (13:12→22:51)
[2017-01-24 16:23] VITALS: BP 162/72
[2017-01-24] MEDS: HYDROcodone/APAP 10 MG/325 MG (LORTAB) TAB PO PRN (16:40)
[2017-01-24 19:07] VITALS: BP 157/68
[2017-01-24] MEDS: inSUlin NPH/REG (NovoLIN 70/30) CHARGE PER UNIT SQ SCH (22:52)
[2017-01-25] VITALS: BP 156/70
[2017-01-25] MEDS: RT-ALBUTEROL/IPRATROPIUM 3 ML (DUONEB) VIAL INH SCH ×6 (02:00→23:00)
[2017-01-25] MEDS: NS W/KCL 40 MEQ/L 1,000 ML IV SCH ×2 (03:45→22:03)
[2017-01-25 05:48] LABS: MEAN PLATELET VOLUME 10.8 FL (7.4-10.4); RED BLOOD COUNT 4.37 10^6/uL (4.35-5.85); RED CELL DISTRIBUTION WIDTH 16.1 % (10.0-14.5); WHITE BLOOD COUNT 5.7 10^3/uL (4.3-11.0)
[2017-01-25 06:09] LABS: ALANINE AMINOTRANSFERASE 6 U/L (0-55); ALBUMIN 3.3 GM/DL (3.2-4.5); ANION GAP 11 MMOL/L (5-14); ASPARTATE AMINO TRANSFERASE 15 U/L (5-34); BILIRUBIN,TOTAL 0.7 MG/DL (0.1-1.0); BLOOD UREA NITROGEN 15 MG/DL (7-18); BUN/CREATININE RATIO 16; CALCIUM 9.2 MG/DL (8.5-10.1); CARBON DIOXIDE 36 MMOL/L (21-32); CHLORIDE 94 MMOL/L (98-107); CREATININE SERUM 0.95 MG/DL (0.60-1.30); GFR ESTIMATED > 60; POTASSIUM 4.3 MMOL/L (3.6-5.0); SODIUM 141 MMOL/L (135-145); TOTAL PROTEIN 7.3 GM/DL (6.4-8.2)
[2017-01-25 06:10] LABS: GLUCOSE 60 MG/DL (70-105)
[2017-01-25] MEDS: inSUlin (REGULAR) HUMAN 1 UNIT/0.01 ML (CHARGE PER UNIT) SC SCH ×4 (06:21→21:00)
[2017-01-25 08:31] VITALS: BP 176/78
--- NOTE | 2017-01-25 08:39 | Cardiology Progress Note ---
Subjective Date Seen by Provider: Jan 25, 2017 Time Seen by Provider: 08:37 Subjective/Events-last exam patient is laying down in bed, still having edema. Reporting good urine output. Improving slowly. Review of Systems General: No Chills, No Night Sweats, No Fatigue, No Malaise, No Appetite, No Other HEENT: No Head Aches, No Visual Changes, No Eye Pain, No Ear Pain, No Dysphasia , No Sinus Congestion, No Post Nasal Drip, No Sore Throat, No Other Pulmonary: Dyspnea, No Cough, No Pleuritic Chest Pain, No Other Cardiovascular: Edema, No: Chest Pain, Palpitations, Orthopnea, Paroxysmal Noc. Dyspnea, Lt Headedness, Other Objective-Cardiology Exam Last Set of Vital Signs Vital Signs 01/25/17 08:31 Temp 97.7 Pulse 87 Resp 22 B/P (MAP) 176/78 Pulse Ox 92 O2 Delivery Nasal Cannula O2 Flow Rate 3.00 Capillary Refill : Less Than 3 Seconds I&O Intake and Output 01/26/17 00:00 Intake Total 1300 ml Output Total 2800 ml Balance -1500 ml Intake Oral 300 ml IV Total 1000 ml Output Urine Total 2800 ml General: Alert, Oriented X3, Cooperative HEENT: Atraumatic, PERRLA Neck: Supple, No JVD, No Thyromegaly Lungs: Normal Air Movement, Other (Bilateral rhonchi) Heart: Normal S1, Normal S2, No Murmurs, Other (Distant heart sounds) Abdomen: Normal Bowel Sounds, Soft, No Tenderness, No Hepatosplenomegaly, No Masses Extremities: No Clubbing, No Cyanosis, No Tenderness/Swelling, Other Skin: No Significant Lesion Neuro: Normal Tone, Sensation Intact Psych/Mental Status: Mood NL Results Lab Laboratory Tests 01/25/17 05:10 A/P-Cardiology Admission Diagnosis Anasarca Irregular heartbeat Diabetes mellitus Morbid obesity Assessment/Plan Anasarca, fluid retention. Patient is maintained on Lasix IV, I added Zaroxolyn for 3 days and will continue monitoring renal function closely Echocardiogram was done with contrast, limited echo due to the patient's body habitus, overall systolic function appeared to be normal with ejection fraction 50-55 percent. No other information was obtainable from that echo Irregular heartbeat, EKG showed artifacts but appeared to be regular. Patient is in sinus rhythm. Continue to monitor telemetry. Chronic venous stasis changes, peripheral edema, continue with diuresis and monitor electrolytes. Diabetes mellitus, followed and managed by primary care physician COPD, morbid obesity, chronic CO2 retention. Managed by Dr. Flores Morbid obesity. Clinical Quality Measures DVT/VTE Risk/Contraindication: Risk Factor Score Per Nursin RFS Level Per Nursing on Admit: 4+=Very High BENJA WAYNE MD Jan 25, 2017 08:39
[2017-01-25] MEDS: METOLAZONE 5 MG (ZAROXOLYN) TAB PO SCH (09:33)
[2017-01-25] MEDS: FUROSEMIDE 40 MG/4 ML INJ (LASIX) IV SCH ×2 (09:33→21:58)
[2017-01-25] MEDS: HYDROcodone/APAP 10 MG/325 MG (LORTAB) TAB PO PRN ×2 (09:33→18:27)
[2017-01-25] MEDS: GABAPENTIN 400 MG (NEURONTIN) CAP PO SCH ×3 (09:33→21:58)
--- NOTE | 2017-01-25 12:21 | Progress Note-Hospitalist ---
Progress Note HPI/CC on Admission CC: Dyspnea with volume overload HPI: This is a patient of Dr. Treviño's who presented to the ER with reports of low oxygen level although he reports that he was not short of breath. He has multiple hospitalizations for anasarca and volume overload he remains DO NOT RESUSCITATE and DO NOT INTUBATE the cause of his morbid super obesity with BMI of 80 he is infrequently for IV diuretic therapy. He is CO2 was 88 on ABG with pH of 7.2 and he was placed on BiPAP therapy with good results. He at this current time is ordering lunch and I review and reconcile all of his home medication and denies any significant issues except for neuropathy in his feet. He just completed antibiotic therapy for acute on chronic cellulitis due to venous stasis dermatitis of his lower legs. Progress Notes/Assess & Plan Date Seen 01/25/17 Time Seen by Provider: 11:00 Admission Dx/Process Assessment: Anasarca severe and recurrent Lower extremity edema chronic CRI DM HTN Severe morbid obesity Anemia of chronic disease Diagonsis/Assessment & Plan Patient doing well and denies any shortness of breath Bowels are moving adequately MRSA and Proteus noted on right blister on leg with severe venous stasis dermatitis Very poor prognosis considering noncompliance issue refuses to wear oxygen or anything at the long-term Blood sugar checks adequate No fever, vital signs stable, pleasant, oriented 3 Regular rate and rhythm, clear to auscultation bilaterally diminished in the bases Severe venous stasis changes with right lower leg blister like appearing lesion with possible erythema difficult to ascertain due to the severe venous stasis dermatitis appearance of the legs Assessment: Anasarca severe and recurrent DOMINGA non-compliant with any treatment consistently at [place] Lower extremity edema chronic with severe venous stasis dermatitis now with MRSA and Proteus on prelim culture placing on Vanc and Zosyn CRI stable DM HTN Severe morbid obesity Anemia of chronic disease Plan: IV diuretics I appreciate Dr. Richter consultation Maintain oxygen therapy CPAP therapy Monitor closely Reconciled all home meds including pain medication IV antibiotics Very difficult issues due to morbid super obesity WOJCIECH SIMMS DO Jan 25, 2017 12:21
[2017-01-25] MEDS ORDERED: PIPERACILLIN SODIUM/TAZOBACTAM 4.5 GM in NS (IVPB) 100 ML IV NR (12:30)
[2017-01-25] MEDS ORDERED: VANCOMYCIN INJECTION 1,000 MG in NS (IVPB) 250 ML IV SCH (12:30)
[2017-01-25] MEDS: KCL 10 MEQ TAB (MICRO K) PO SCH (12:43)
[2017-01-25] MEDS ORDERED: VANCOMYCIN 2000 MG/NS 500 ML IVPB IV SCH ×2 (14:00)
[2017-01-25] MEDS ORDERED: FURO40TA4 PO (14:42)
[2017-01-25 15:50] VITALS: BP 146/65
[2017-01-25] MEDS: PIPERACILLIN/TAZOBACTAM 4.5 GM/NS100 ML IVPB IV SCH ×2 (18:30)
[2017-01-25 20:22] VITALS: BP 146/65
[2017-01-25] MEDS: inSUlin NPH/REG (NovoLIN 70/30) CHARGE PER UNIT SQ SCH (21:59)
[2017-01-25] MEDS: VANCOMYCIN 1250 MG/NS 250 ML IVPB IV SCH ×2 (23:52)
[2017-01-26] VITALS: BP 126/59
[2017-01-26] MEDS: PIPERACILLIN/TAZOBACTAM 4.5 GM/NS100 ML IVPB IV SCH ×6 (02:30→18:26)
[2017-01-26] MEDS: HYDROcodone/APAP 10 MG/325 MG (LORTAB) TAB PO PRN ×3 (02:32→13:31)
[2017-01-26] MEDS: RT-ALBUTEROL/IPRATROPIUM 3 ML (DUONEB) VIAL INH SCH ×6 (03:42→22:44)
[2017-01-26 04:00] VITALS: BP 128/59
[2017-01-26] MEDS: inSUlin (REGULAR) HUMAN 1 UNIT/0.01 ML (CHARGE PER UNIT) SC SCH ×4 (06:09→21:06)
[2017-01-26 06:20] LABS: BASOPHILS % (AUTO) 0 % (0-10); EOSINOPHILS # (AUTO) 0.4 10^3/uL (0.0-0.3); EOSINOPHILS % (AUTO) 6 % (0-10); LYMPHOCYTES # (AUTO) 0.6 X 10^3 (1.0-4.0); LYMPHOCYTES % (AUTO) 9 % (12-44); MEAN CORPUSCULAR HEMOGLOBIN 26 PG (25-34); MEAN CORPUSCULAR HGB CONC 29 G/DL (32-36); MEAN CORPUSCULAR VOLUME 91 FL (80-99); MEAN PLATELET VOLUME 10.8 FL (7.4-10.4); MONOCYTES # (AUTO) 0.3 X 10^3 (0.0-1.0); MONOCYTES % (AUTO) 4 % (0-12); NEUTROPHILS # (AUTO) 5.3 X 10^3 (1.8-7.8); NEUTROPHILS % (AUTO) 80 % (42-75); PLATELET COUNT 189 10^3/uL (130-400); RED BLOOD COUNT 4.21 10^6/uL (4.35-5.85); RED CELL DISTRIBUTION WIDTH 16.1 % (10.0-14.5); WHITE BLOOD COUNT 6.6 10^3/uL (4.3-11.0)
[2017-01-26 06:40] LABS: ALANINE AMINOTRANSFERASE 6 U/L (0-55); ALBUMIN 3.2 GM/DL (3.2-4.5); ANION GAP 7 MMOL/L (5-14); ASPARTATE AMINO TRANSFERASE 13 U/L (5-34); BLOOD UREA NITROGEN 16 MG/DL (7-18); BUN/CREATININE RATIO 16; CARBON DIOXIDE 41 MMOL/L (21-32); CHLORIDE 91 MMOL/L (98-107); CREATININE SERUM 1.01 MG/DL (0.60-1.30); GFR ESTIMATED > 60; GLUCOSE 61 MG/DL (70-105); POTASSIUM 4.2 MMOL/L (3.6-5.0); SODIUM 139 MMOL/L (135-145); TOTAL PROTEIN 7.3 GM/DL (6.4-8.2)
[2017-01-26] MEDS: NS W/KCL 40 MEQ/L 1,000 ML IV SCH ×2 (06:45→20:00)
[2017-01-26 07:49] VITALS: BP 128/59
[2017-01-26] MEDS: FUROSEMIDE 40 MG/4 ML INJ (LASIX) IV SCH ×2 (08:21→20:07)
[2017-01-26] MEDS: VANCOMYCIN 1250 MG/NS 250 ML IVPB IV SCH ×4 (08:21→15:52)
[2017-01-26] MEDS: METOLAZONE 5 MG (ZAROXOLYN) TAB PO SCH (08:21)
[2017-01-26] MEDS: GABAPENTIN 400 MG (NEURONTIN) CAP PO SCH ×3 (08:21→20:07)
--- NOTE | 2017-01-26 08:33 | Progress Note (SOAP) ---
Subjective Date Seen by Provider: Jan 26, 2017 Time Seen by Provider: 08:32 Subjective/Events-last exam HE REPORTS THAT HE IS SHORT OF BREATH, BUT IT IS NOT WORSE THAN IT HAS BEEN ON ADMISSION. HE REPORTS THAT HE HAS SWELLING OF HIS LEGS AND ABDOMEN. HE HAS CHRONIC PAIN Review of Systems General: No Chills, Fatigue, Malaise HEENT: No Head Aches Pulmonary: No Dyspnea, No Cough Cardiovascular: Edema, No: Chest Pain, Palpitations Gastrointestinal: No: Nausea Neurological: Weakness, No: Confusion Objective Exam Vital Signs Date Time Temp Pulse Resp B/P (MAP) Pulse Ox O2 Delivery O2 Flow Rate FiO2 01/26/17 07:49 86 94 01/26/17 07:49 94 Nasal Cannula 3.00 01/26/17 04:00 97.5 82 18 128/59 95 Nasal Cannula 3.00 01/26/17 01:00 86 01/26/17 00:00 98.2 89 20 126/59 98 Nasal Cannula 3.00 01/25/17 23:00 95 Nasal Cannula 3.00 01/25/17 20:22 97.6 84 18 146/65 95 Nasal Cannula 3.00 01/25/17 20:20 95 Nasal Cannula 3.00 01/25/17 19:42 96 Nasal Cannula 3.00 01/25/17 19:00 85 01/25/17 15:50 97.4 81 22 146/65 97 Nasal Cannula 3.00 01/25/17 14:30 94 Nasal Cannula 3.00 01/25/17 13:00 88 01/25/17 10:44 95 Nasal Cannula 3.00 Capillary Refill : Less Than 3 Seconds General Appearance: No Apparent Distress, Obese HEENT: PERRL/EOMI, Pharynx Normal Neck: Full Range of Motion, Supple Respiratory: Chest Non Tender, Decreased Breath Sounds Cardiovascular: Regular Rate, Rhythm Gastrointestinal: normal bowel sounds, non tender Extremity: Pedal Edema Neurologic/Psychiatric: Alert, Oriented x3, Normal Mood/Affect Skin: Warm/Dry Lymphatic: No Adenopathy Results Lab Laboratory Tests 01/25/17 10:47: Glucometer 113H 01/25/17 15:53: Glucometer 118H 01/25/17 20:47: Glucometer 137H 01/26/17 06:08: Glucometer 65L 01/26/17 06:09: White Blood Count 6.6, Red Blood Count 4.21L, Hemoglobin 10.9L, Hematocrit 38L, Mean Corpuscular Volume 91, Mean Corpuscular Hemoglobin 26, Mean Corpuscular Hemoglobin Concent 29L, Red Cell Distribution Width 16.1H, Platelet Count 189, Mean Platelet Volume 10.8H, Neutrophils (%) (Auto) 80H, Lymphocytes (%) (Auto) 9L, Monocytes (%) (Auto) 4, Eosinophils (%) (Auto) 6, Basophils (%) (Auto) 0, Neutrophils # (Auto) 5.3, Lymphocytes # (Auto) 0.6L, Monocytes # (Auto) 0.3, Eosinophils # (Auto) 0.4H, Basophils # (Auto) 0.0, Sodium Level 139, Potassium Level 4.2, Chloride Level 91L, Carbon Dioxide Level 41H, Anion Gap 7, Blood Urea Nitrogen 16, Creatinine 1.01, Estimat Glomerular Filtration Rate > 60, BUN/ Creatinine Ratio 16, Glucose Level 61L, Calcium Level 9.0, Total Bilirubin 1.0, Aspartate Amino Transf (AST/SGOT) 13, Alanine Aminotransferase (ALT/SGPT) 6, Alkaline Phosphatase 64, Total Protein 7.3, Albumin 3.2 01/26/17 06:30: Glucometer 79 Microbiology 01/23/17 Blood Culture - Preliminary, Resulted No growth 01/23/17 Gram Stain - Final, Resulted 01/23/17 Wound Culture - Preliminary, Resulted Morganella Morganii Staphylococcus Aureus Proteus Mirabilis Assessment/Plan Assessment/Plan Assess & Plan/Chief Complaint ANASARCA CELLULITIS FLUID OVERLOAD LOWER EXTREMITY EDEMA RENAL INSUFFICIENCY DIABETES MELLITUS HYPERTENSION SEVERE MORBID OBESITY ANEMIA ANASARCA WITH GROSS FLUID OVERLOAD AND LOWER EXTREMITY EDEMA - CONTINUE WITH LASIX - 80MG BID, MONITOR DAILY WEIGHTS, ELEVATE RIGHT FLANK OFF OF BED CELLULITIS - CONTINUE WITH ZOSYN AND VANCOMYCIN RENAL INSUFFICIENCY - MONITOR RENAL FUNCTION - DIABETES MELLITUS - SLIDING SCALE INSULIN. MONITOR SYMPTOMS - ADA DIET. HYPERTENSION - RESTART HOME MEDICATIONS GI PROPHYLAXIS - PPI - STARTED ON PROTONIX DVT PROPHYLAXIS - COMPRESSION AND LOVENOX. Clinical Quality Measures DVT/VTE Risk/Contraindication: Risk Factor Score Per Nursin RFS Level Per Nursing on Admit: 4+=Very High NITO NICOLAS MD Jan 26, 2017 08:32
[2017-01-26 08:44] VITALS: BP 120/67
--- NOTE | 2017-01-26 11:38 | Progress Note-Cardiology ---
Cardiology SOAP Progress Note Subjective: Sitting up in bed visiting with a friend. He denies any shortness of breath. He does not report any CP, palpitations. Objective: I&O/Vital Signs Vital Sign - Last 12Hours 01/26/17 01/26/17 01/26/17 01/26/17 07:49 07:49 08:00 08:44 Temp 98.2 Pulse 86 84 Resp 18 B/P (MAP) 120/67 Pulse Ox 94 94 94 94 O2 Delivery Nasal Cannula Nasal Cannula Nasal Cannula O2 Flow Rate 3.00 3.00 3.00 01/26/17 01/26/17 01/26/17 01/26/17 10:52 12:59 15:17 16:25 Temp 97.0 Pulse 89 81 Resp 18 B/P (MAP) 100/57 Pulse Ox 94 98 95 O2 Delivery Nasal Cannula Nasal Cannula Nasal Cannula O2 Flow Rate 3.00 3.00 3.00 01/26/17 19:01 Pulse Ox 96 O2 Delivery Nasal Cannula O2 Flow Rate 3.00 Intake and Output 01/27/17 00:00 Intake Total 1000 ml Output Total 2175 ml Balance -1175 ml Weight (Pounds): 525 Weight (Ounces): 9.0 Weight (Calculated Kilograms): [phone] Constitutional: AAO x 3 Respiratory: other (good air entry bilat) Cardiovascular: regular rate-rhythm, S1 and S2 Gastrointestional: No tender, soft, round Extremities: significant edema (2 (+) bilat LE edema) Neurologic/Psychiatric: grossly intact Skin: No rash on exposed areas, No ulcerations on exposed areas Results/Procedures: Labs Laboratory Tests 01/25/17 20:47: Glucometer 137H 01/26/17 06:08: Glucometer 65L 01/26/17 06:09: White Blood Count 6.6, Red Blood Count 4.21L, Hemoglobin 10.9L, Hematocrit 38L, Mean Corpuscular Volume 91, Mean Corpuscular Hemoglobin 26, Mean Corpuscular Hemoglobin Concent 29L, Red Cell Distribution Width 16.1H, Platelet Count 189, Mean Platelet Volume 10.8H, Neutrophils (%) (Auto) 80H, Lymphocytes (%) (Auto) 9L, Monocytes (%) (Auto) 4, Eosinophils (%) (Auto) 6, Basophils (%) (Auto) 0, Neutrophils # (Auto) 5.3, Lymphocytes # (Auto) 0.6L, Monocytes # (Auto) 0.3, Eosinophils # (Auto) 0.4H, Basophils # (Auto) 0.0, Sodium Level 139, Potassium Level 4.2, Chloride Level 91L, Carbon Dioxide Level 41H, Anion Gap 7, Blood Urea Nitrogen 16, Creatinine 1.01, Estimat Glomerular Filtration Rate > 60, BUN/ Creatinine Ratio 16, Glucose Level 61L, Calcium Level 9.0, Total Bilirubin 1.0, Aspartate Amino Transf (AST/SGOT) 13, Alanine Aminotransferase (ALT/SGPT) 6, Alkaline Phosphatase 64, Total Protein 7.3, Albumin 3.2 01/26/17 06:30: Glucometer 79 01/26/17 10:46: Glucometer 104 01/26/17 15:00: Vancomycin Level Trough 27.6*H 01/26/17 16:31: Glucometer 124H Microbiology 01/23/17 Blood Culture - Preliminary, Resulted No growth 01/23/17 Gram Stain - Final, Resulted 01/23/17 Wound Culture - Preliminary, Resulted Morganella Morganii Staphylococcus Aureus Proteus Mirabilis A/P: Assessment: Multifactorial dyspnea and acute resp failure (see below) Obesity with obesity-hypoventilation syndrome with chronic resp failure COPD Probable chronic cor pulmonale Anasarca, fluid retention Echocardiogram was done with contrast, limited echo due to the patient's body habitus, overall systolic function appeared to be normal with ejection fraction 50-55 percent. No other information was obtainable from that echo - per Dr. Richter Irregular heartbeat, EKG showed artifacts but appeared to be regular - currently SR Chronic venous stasis dermatitis and peripheral edema Diabetes mellitus, followed and managed by primary care physician Plan: Good response to diuretics Continue current regimen and monitor lab Physician Assessment Physician Assessment Lungs: fair air entry; diminished at the bases Cor: reg Ext: no c/c; marked chronic leg edema; skin changes consistent with chronic stasis dermatitis A&R As documented in our note above that I updated (italics) and as noted below Change diuretics to oral Monitor labs Most issues seem to stem from obesity. Wgt loss advised and I discussed CV- related issues with him and his family BENY GALEANO NO EXPERIENCE Jan 26, 2017 11:38 AYESHA SOW MD FACP [facility] Jan 26, 2017 19:43
[2017-01-26] MEDS ORDERED: TROUGH ORDER-PHARMACY XX NR (15:00)
[2017-01-26 16:25] VITALS: BP 100/57
[2017-01-26 19:40] VITALS: BP 102/61
[2017-01-26] MEDS: inSUlin NPH/REG (NovoLIN 70/30) CHARGE PER UNIT SQ SCH (21:05)
[2017-01-27 00:24] VITALS: BP 126/60
[2017-01-27] MEDS: NS W/KCL 40 MEQ/L 1,000 ML IV SCH ×2 (00:42→21:17)
[2017-01-27] MEDS: PIPERACILLIN/TAZOBACTAM 4.5 GM/NS100 ML IVPB IV SCH ×6 (01:45→17:56)
[2017-01-27] MEDS: RT-ALBUTEROL/IPRATROPIUM 3 ML (DUONEB) VIAL INH SCH ×7 (02:52→22:10)
[2017-01-27 03:23] VITALS: BP 155/55
[2017-01-27] MEDS: HYDROcodone/APAP 10 MG/325 MG (LORTAB) TAB PO PRN ×3 (05:52→23:52)
[2017-01-27] MEDS ORDERED: TROUGH ORDER-PHARMACY XX NR (07:00)
[2017-01-27] MEDS: inSUlin (REGULAR) HUMAN 1 UNIT/0.01 ML (CHARGE PER UNIT) SC SCH ×4 (07:34→21:18)
[2017-01-27] MEDS: FUROSEMIDE 40 MG/4 ML INJ (LASIX) IV SCH ×2 (08:10→20:14)
[2017-01-27] MEDS: GABAPENTIN 400 MG (NEURONTIN) CAP PO SCH ×3 (08:11→20:14)
[2017-01-27] MEDS: VANCOMYCIN INJECTION 2,000 MG in NS IV 500 ML 500 ML IV SCH (08:11)
[2017-01-27 08:34] VITALS: BP 135/58
--- NOTE | 2017-01-27 08:48 | Progress Note (SOAP) ---
Subjective Date Seen by Provider: Jan 27, 2017 Time Seen by Provider: 08:48 Subjective/Events-last exam PT REPORTS THAT HE WOULD LIKE TO LEAVE THE HOSPITAL SOON POSSIBLE. HE STATES THAT HE IS FEELING BETTER, AND HE REPORTS THAT HIS SWELLING IS BETTER. HE IS UPSET ABOUT NEEDING TO BE IN THE HOSPITAL LONGER FOR IV ANTIBIOTICS. Review of Systems General: No Chills, Fatigue Pulmonary: Dyspnea, Cough Gastrointestinal: No: Abdominal Pain Neurological: Weakness, No: Confusion Objective Exam Vital Signs Date Time Temp Pulse Resp B/P (MAP) Pulse Ox O2 Delivery O2 Flow Rate FiO2 01/27/17 08:34 97.6 84 22 135/58 92 Nasal Cannula 3.00 01/27/17 07:21 91 Nasal Cannula 3.00 01/27/17 03:23 97.7 85 18 155/55 97 Nasal Cannula 3.00 01/27/17 03:01 95 Nasal Cannula 3.00 01/27/17 01:00 77 01/27/17 00:24 98.9 83 16 126/60 95 Nasal Cannula 3.00 01/26/17 22:45 95 Nasal Cannula 3.00 01/26/17 20:10 95 Nasal Cannula 3.00 01/26/17 19:40 97.5 86 20 102/61 95 Nasal Cannula 3.00 01/26/17 19:01 96 Nasal Cannula 3.00 01/26/17 19:00 89 01/26/17 16:25 97.0 81 18 100/57 95 Nasal Cannula 3.00 01/26/17 15:17 98 Nasal Cannula 3.00 01/26/17 12:59 89 01/26/17 10:52 94 Nasal Cannula 3.00 Capillary Refill : Less Than 3 Seconds General Appearance: Obese HEENT: PERRL/EOMI Neck: Supple Respiratory: Chest Non Tender, Lungs Clear, Normal Breath Sounds Cardiovascular: Regular Rate, Rhythm Gastrointestinal: normal bowel sounds, other (OBESE, EDEMATOUS) Extremity: Pedal Edema (HARD PITTING OF LEGS, SORES ON LEGS, WEAPING HAS IMPROVED) Neurologic/Psychiatric: Alert, Oriented x3, Normal Mood/Affect Skin: Warm/Dry Lymphatic: No Adenopathy Results Lab Laboratory Tests 01/26/17 10:46: Glucometer 104 01/26/17 15:00: Vancomycin Level Trough 27.6*H 01/26/17 16:31: Glucometer 124H 01/26/17 20:41: Glucometer 169H 01/27/17 05:21: Glucometer 60*L 01/27/17 06:27: Vancomycin Level Trough 18.4 01/27/17 06:32: Glucometer 72 Microbiology 01/23/17 Blood Culture - Preliminary, Resulted No growth 01/23/17 Gram Stain - Final, Resulted 01/23/17 Wound Culture - Preliminary, Resulted Morganella Morganii Staphylococcus Aureus Proteus Mirabilis Assessment/Plan Assessment/Plan Assess & Plan/Chief Complaint ANASARCA CELLULITIS FLUID OVERLOAD LOWER EXTREMITY EDEMA RENAL INSUFFICIENCY DIABETES MELLITUS HYPERTENSION SEVERE MORBID OBESITY ANEMIA ANASARCA WITH GROSS FLUID OVERLOAD AND LOWER EXTREMITY EDEMA - CONTINUE WITH LASIX - 80MG BID, MONITOR DAILY WEIGHTS, ELEVATE RIGHT FLANK OFF OF BED CELLULITIS - CONTINUE WITH ZOSYN AND VANCOMYCIN RENAL INSUFFICIENCY - MONITOR RENAL FUNCTION - DIABETES MELLITUS - SLIDING SCALE INSULIN. MONITOR SYMPTOMS - ADA DIET. HYPERTENSION - RESTART HOME MEDICATIONS GI PROPHYLAXIS - PPI - STARTED ON PROTONIX DVT PROPHYLAXIS - COMPRESSION AND LOVENOX. I HAVE DISCUSSED WITH THE PATIENT AND HIS (ON THE PHONE) ABOUT NEED FOR CONTINUED IV ANTIBIOTICS. THE POSSIBILITY OF [facility] HAS BEEN RAISED , HOWEVER HIS REPORTS THAT SHE CANNOT AFFORD FOR LANCE TO GO TO [facility] - SHE DOES NOT THINK THAT HER INSURANCE WILL PAY FOR [facility]. I HAVE TALKED TO [employer] AND THEY ARE GOING TO LOOK INTO INSURANCE COVERAGE OF [facility]. Clinical Quality Measures DVT/VTE Risk/Contraindication: Risk Factor Score Per Nursin RFS Level Per Nursing on Admit: 4+=Very High NITO NICOLAS MD Jan 27, 2017 08:48
--- NOTE | 2017-01-27 11:09 | Progress Note-Cardiology ---
Cardiology SOAP Progress Note Subjective: No new c/o. He does not currently describe cp or palp or syncope or shortness of breath Objective: I&O/Vital Signs Vital Sign - Last 12Hours 01/27/17 01/27/17 01/27/17 01/27/17 07:05 07:21 08:20 08:34 Temp 97.6 Pulse 80 84 Resp 22 B/P (MAP) 135/58 Pulse Ox 91 92 92 O2 Delivery Nasal Cannula Nasal Cannula Nasal Cannula O2 Flow Rate 3.00 3.00 3.00 01/27/17 01/27/17 01/27/17 10:39 14:25 15:21 Pulse Ox 92 92 96 O2 Delivery Nasal Cannula Nasal Cannula Nasal Cannula O2 Flow Rate 3.00 3.00 3.00 Intake and Output 01/28/17 00:00 Intake Total 820 ml Output Total 2140 ml Balance -1320 ml Weight (Pounds): 520 Weight (Ounces): 12.8 Weight (Calculated Kilograms): [phone] Constitutional: AAO x 3 Respiratory: other (good air entry bilat) Cardiovascular: regular rate-rhythm, S1 and S2 Gastrointestional: No tender, soft, round Extremities: significant edema (2 (+) bilat LE edema) Neurologic/Psychiatric: grossly intact Skin: No rash on exposed areas, No ulcerations on exposed areas Results/Procedures: Labs Laboratory Tests 01/26/17 20:41: Glucometer 169H 01/27/17 05:21: Glucometer 60*L 01/27/17 06:27: Vancomycin Level Trough 18.4 01/27/17 06:32: Glucometer 72 01/27/17 10:57: Glucometer 95 01/27/17 16:12: Glucometer 134H Microbiology 01/23/17 Blood Culture - Preliminary, Resulted No growth 01/23/17 Gram Stain - Final, Complete 01/23/17 Wound Culture - Final, Complete Morganella Morganii Staphylococcus Aureus Proteus Mirabilis Laboratory Tests 01/26/17 06:09 A/P: Assessment: Multifactorial dyspnea and acute resp failure (see below) Obesity with obesity-hypoventilation syndrome with chronic resp failure COPD Probable chronic cor pulmonale Fluid retention Echocardiogram was done with contrast, limited echo due to the patient's body habitus, overall systolic function appeared to be normal with ejection fraction 50-55 percent. No other information was obtainable from that echo - per Dr. Richter Irregular heartbeat, EKG showed artifacts but appeared to be regular - currently SR Chronic venous stasis dermatitis and peripheral edema Diabetes mellitus, followed and managed by primary care physician Plan: Good response to diuretics Continue current regimen and monitor lab Physician Assessment Physician Assessment Lungs: fair air entry; diminished at the bases Cor: reg Ext: no c/c; marked chronic leg edema; skin changes consistent with chronic stasis dermatitis A&R As documented in our note above that I updated (italics) and as noted below Continue to monitor labs I spoke with him and answered CV-related questions BENY GALEANO QUALITY OFFICER Jan 27, 2017 11:09 AYESHA SOW MD FACP [facility] Jan 27, 2017 17:29
[2017-01-27 16:10] VITALS: BP 124/65
[2017-01-27] MEDS: inSUlin NPH/REG (NovoLIN 70/30) CHARGE PER UNIT SQ SCH (21:18)
[2017-01-28 00:29] VITALS: BP 132/63
[2017-01-28] MEDS: PIPERACILLIN/TAZOBACTAM 4.5 GM/NS100 ML IVPB IV SCH ×6 (01:37→18:15)
[2017-01-28] MEDS: RT-ALBUTEROL/IPRATROPIUM 3 ML (DUONEB) VIAL INH SCH ×5 (02:27→22:28)
[2017-01-28] MEDS: inSUlin (REGULAR) HUMAN 1 UNIT/0.01 ML (CHARGE PER UNIT) SC SCH ×4 (05:43→20:45)
[2017-01-28 07:02] LABS: MEAN PLATELET VOLUME 10.3 FL (7.4-10.4); RED BLOOD COUNT 4.49 10^6/uL (4.35-5.85); RED CELL DISTRIBUTION WIDTH 16.3 % (10.0-14.5); WHITE BLOOD COUNT 6.9 10^3/uL (4.3-11.0)
[2017-01-28 07:05] LABS: ANION GAP 10 MMOL/L (5-14); BLOOD UREA NITROGEN 18 MG/DL (7-18); BUN/CREATININE RATIO 15; CALCIUM 9.2 MG/DL (8.5-10.1); CARBON DIOXIDE 41 MMOL/L (21-32); CHLORIDE 87 MMOL/L (98-107); GFR ESTIMATED > 60; GLUCOSE 102 MG/DL (70-105); POTASSIUM 4.1 MMOL/L (3.6-5.0); SODIUM 138 MMOL/L (135-145)
[2017-01-28 07:46] VITALS: BP 127/73
[2017-01-28] MEDS: FUROSEMIDE 40 MG/4 ML INJ (LASIX) IV SCH ×2 (08:08→20:30)
[2017-01-28] MEDS: VANCOMYCIN INJECTION 2,000 MG in NS IV 500 ML 500 ML IV SCH (08:08)
[2017-01-28] MEDS: GABAPENTIN 400 MG (NEURONTIN) CAP PO SCH ×3 (08:09→20:30)
[2017-01-28] MEDS: HYDROcodone/APAP 10 MG/325 MG (LORTAB) TAB PO PRN ×2 (08:09→14:00)
--- NOTE | 2017-01-28 09:25 | Progress Note (SOAP) ---
Subjective Date Seen by Provider: Jan 28, 2017 Time Seen by Provider: 08:59 Subjective/Events-last exam PT GROGGY/SLEEPY TODAY - WAKES UP FOR CONVERSATION - STATE THAT HE IS JUST REALLY TIRED, DID NOT SLEEP WELL LAST NIGHT. HE DENIES SIGNIFICANT PAIN Review of Systems General: No Fatigue Pulmonary: Dyspnea, No Cough Gastrointestinal: No: Nausea, Abdominal Pain Musculoskeletal: back pain Neurological: Weakness, No: Confusion Objective Exam Vital Signs Date Time Temp Pulse Resp B/P (MAP) Pulse Ox O2 Delivery O2 Flow Rate FiO2 01/28/17 07:46 97.4 93 18 127/73 92 Nasal Cannula 3.00 01/28/17 06:04 96 Nasal Cannula 3.00 01/28/17 02:27 95 Nasal Cannula 3.00 01/28/17 00:29 98.8 95 20 132/63 97 Nasal Cannula 3.00 01/27/17 22:11 96 Nasal Cannula 3.00 01/27/17 20:15 Nasal Cannula 3.00 01/27/17 19:17 94 Nasal Cannula 3.00 01/27/17 16:10 97.5 85 16 124/65 97 Nasal Cannula 3.00 01/27/17 15:21 96 Nasal Cannula 3.00 01/27/17 14:25 92 Nasal Cannula 3.00 01/27/17 10:39 92 Nasal Cannula 3.00 Capillary Refill : Less Than 3 Seconds General Appearance: No Apparent Distress, Obese HEENT: PERRL/EOMI, Pharynx Normal Neck: Full Range of Motion, Supple Respiratory: Chest Non Tender, Lungs Clear, Normal Breath Sounds Cardiovascular: Regular Rate, Rhythm Gastrointestinal: normal bowel sounds, other (LARGE PANUS WITH EDEMA UP TO BREAST ) Extremity: Pedal Edema (SEVERE PITTING) Neurologic/Psychiatric: Alert, Oriented x3 Skin: Warm/Dry Lymphatic: No Adenopathy Results Lab Laboratory Tests 01/27/17 10:57: Glucometer 95 01/27/17 16:12: Glucometer 134H 01/27/17 20:57: Glucometer 183H 01/28/17 05:14: Glucometer 113H 01/28/17 06:40: White Blood Count 6.9, Red Blood Count 4.49, Hemoglobin 11.5L, Hematocrit 40, Mean Corpuscular Volume 90, Mean Corpuscular Hemoglobin 26, Mean Corpuscular Hemoglobin Concent 29L, Red Cell Distribution Width 16.3H, Platelet Count 253, Mean Platelet Volume 10.3, Sodium Level 138, Potassium Level 4.1, Chloride Level 87L, Carbon Dioxide Level 41H, Anion Gap 10, Blood Urea Nitrogen 18, Creatinine 1.20, Estimat Glomerular Filtration Rate > 60, BUN/Creatinine Ratio 15, Glucose Level 102, Calcium Level 9.2 Microbiology 01/23/17 Blood Culture - Preliminary, Resulted No growth 01/23/17 Gram Stain - Final, Complete 01/23/17 Wound Culture - Final, Complete Morganella Morganii Staphylococcus Aureus Proteus Mirabilis Assessment/Plan Assessment/Plan Assess & Plan/Chief Complaint ANASARCA CELLULITIS FLUID OVERLOAD LOWER EXTREMITY EDEMA RENAL INSUFFICIENCY DIABETES MELLITUS HYPERTENSION SEVERE MORBID OBESITY ANEMIA ANASARCA WITH GROSS FLUID OVERLOAD AND LOWER EXTREMITY EDEMA - CONTINUE WITH LASIX - 80MG BID, MONITOR DAILY WEIGHTS, ELEVATE RIGHT FLANK OFF OF BED CELLULITIS - CONTINUE WITH ZOSYN AND VANCOMYCIN RENAL INSUFFICIENCY - MONITOR RENAL FUNCTION - DIABETES MELLITUS - SLIDING SCALE INSULIN. MONITOR SYMPTOMS - ADA DIET. HYPERTENSION - RESTART HOME MEDICATIONS GI PROPHYLAXIS - PPI - STARTED ON PROTONIX DVT PROPHYLAXIS - COMPRESSION AND LOVENOX. I HAVE DISCUSSED WITH THE PATIENT AND HIS (ON THE PHONE) ABOUT NEED FOR CONTINUED IV ANTIBIOTICS. THE POSSIBILITY OF [facility] HAS BEEN RAISED , HOWEVER HIS REPORTS THAT SHE CANNOT AFFORD FOR LANCE TO GO TO [facility] - SHE DOES NOT THINK THAT HER INSURANCE WILL PAY FOR [facility]. I HAVE TALKED TO [employer] AND THEY ARE GOING TO LOOK INTO INSURANCE COVERAGE OF [facility] - . Clinical Quality Measures DVT/VTE Risk/Contraindication: Risk Factor Score Per Nursin RFS Level Per Nursing on Admit: 4+=Very High NITO NICOLAS MD Jan 28, 2017 09:25
--- NOTE | 2017-01-28 11:01 | Physical Therapy Progress Note ---
Therapy Progress Note Not a PT order. Nursing supervisor landscape is aware and will address overhead trapeze. RAHAT PEREIRA PT Jan 28, 2017 11:01
--- NOTE | 2017-01-28 11:47 | Progress Note-Cardiology ---
Cardiology SOAP Progress Note Subjective: No cp or palp or syncope Shortness of breath has improved Objective: I&O/Vital Signs Vital Sign - Last 12Hours 01/28/17 01/28/17 01/28/17 01/28/17 00:29 02:27 06:04 07:46 Temp 98.8 97.4 Pulse 95 93 Resp 20 18 B/P (MAP) 132/63 127/73 Pulse Ox 97 95 96 92 O2 Delivery Nasal Cannula Nasal Cannula Nasal Cannula Nasal Cannula O2 Flow Rate 3.00 3.00 3.00 3.00 01/28/17 01/28/17 08:00 09:49 Pulse Ox 94 94 O2 Delivery Nasal Cannula Nasal Cannula O2 Flow Rate 3.00 3.00 Weight (Pounds): 512 Weight (Ounces): 8.0 Weight (Calculated Kilograms): [id number] Constitutional: AAO x 3 Respiratory: other (good air entry bilat) Cardiovascular: regular rate-rhythm, S1 and S2 Gastrointestional: No tender, soft, round Extremities: significant edema (2 (+) bilat LE edema) Neurologic/Psychiatric: grossly intact Skin: No rash on exposed areas, No ulcerations on exposed areas Results/Procedures: Labs Laboratory Tests 01/27/17 16:12: Glucometer 134H 01/27/17 20:57: Glucometer 183H 01/28/17 05:14: Glucometer 113H 01/28/17 06:40: White Blood Count 6.9, Red Blood Count 4.49, Hemoglobin 11.5L, Hematocrit 40, Mean Corpuscular Volume 90, Mean Corpuscular Hemoglobin 26, Mean Corpuscular Hemoglobin Concent 29L, Red Cell Distribution Width 16.3H, Platelet Count 253, Mean Platelet Volume 10.3, Sodium Level 138, Potassium Level 4.1, Chloride Level 87L, Carbon Dioxide Level 41H, Anion Gap 10, Blood Urea Nitrogen 18, Creatinine 1.20, Estimat Glomerular Filtration Rate > 60, BUN/Creatinine Ratio 15, Glucose Level 102, Calcium Level 9.2 01/28/17 10:45: Glucometer 139H Microbiology 01/23/17 Blood Culture - Preliminary, Resulted No growth 01/23/17 Gram Stain - Final, Complete 01/23/17 Wound Culture - Final, Complete Morganella Morganii Staphylococcus Aureus Proteus Mirabilis Laboratory Tests 01/28/17 06:40 A/P: Assessment: Multifactorial dyspnea and acute resp failure (see below) Obesity with obesity-hypoventilation syndrome with chronic resp failure COPD Probable chronic cor pulmonale Fluid retention Echocardiogram was done with contrast, limited echo due to the patient's body habitus, overall systolic function appeared to be normal with ejection fraction 50-55 percent. No other information was obtainable from that echo - per Dr. Richter Irregular heartbeat, EKG showed artifacts but appeared to be regular - currently SR Chronic venous stasis dermatitis and peripheral edema Diabetes mellitus, followed and managed by primary care physician Plan: Symptoms seem to stem mostly from morbid obesity. I had a detailed conversation with him regarding that. I recommended consideration of bariatric surgery and the pros and cons were reviewed AYESHA SOW MD FACP FAC CCDS Jan 28, 2017 11:47
[2017-01-28] MEDS: NS W/KCL 40 MEQ/L 1,000 ML IV SCH (14:45)
[2017-01-28 16:36] VITALS: BP 103/63
[2017-01-28] MEDS: inSUlin NPH/REG (NovoLIN 70/30) CHARGE PER UNIT SQ SCH (20:44)
[2017-01-29] MEDS: HYDROcodone/APAP 10 MG/325 MG (LORTAB) TAB PO PRN ×3 (00:18→16:31)
[2017-01-29 00:45] VITALS: BP 123/71
[2017-01-29] MEDS: NS W/KCL 40 MEQ/L 1,000 ML IV SCH ×2 (02:08→14:11)
[2017-01-29] MEDS: PIPERACILLIN/TAZOBACTAM 4.5 GM/NS100 ML IVPB IV SCH ×6 (02:09→18:06)
[2017-01-29] MEDS: RT-ALBUTEROL/IPRATROPIUM 3 ML (DUONEB) VIAL INH SCH ×6 (03:05→22:18)
[2017-01-29] MEDS: inSUlin (REGULAR) HUMAN 1 UNIT/0.01 ML (CHARGE PER UNIT) SC SCH ×4 (06:13→21:17)
[2017-01-29] MEDS ORDERED: TROUGH ORDER-PHARMACY XX NR (07:00)
[2017-01-29 07:48] LABS: MEAN PLATELET VOLUME 10.7 FL (7.4-10.4); RED BLOOD COUNT 4.39 10^6/uL (4.35-5.85); RED CELL DISTRIBUTION WIDTH 15.9 % (10.0-14.5); WHITE BLOOD COUNT 7.5 10^3/uL (4.3-11.0)
[2017-01-29 08:00] VITALS: BP 112/69
[2017-01-29 08:00] LABS: ANION GAP 12 MMOL/L (5-14); BLOOD UREA NITROGEN 22 MG/DL (7-18); BUN/CREATININE RATIO 19; CARBON DIOXIDE 38 MMOL/L (21-32); CHLORIDE 88 MMOL/L (98-107); CREATININE SERUM 1.13 MG/DL (0.60-1.30); GFR ESTIMATED > 60; GLUCOSE 92 MG/DL (70-105); SODIUM 138 MMOL/L (135-145)
--- NOTE | 2017-01-29 09:09 | Progress Note (SOAP) ---
Subjective Date Seen by Provider: Jan 29, 2017 Time Seen by Provider: 09:04 Subjective/Events-last exam PT WAKES UP TO TALK TODAY - HE REPORTS THAT HE IS STILL IN PAIN FROM HIS BACK AND KNEES, HE IS NOT HAVING PAIN IN HIS LOWER LEGS TODAY. HE REPORTS GOOD APPETITE, NO DIARRHEA, BUT IS INCONTINENT. Review of Systems General: No Chills, Fatigue HEENT: No Head Aches Pulmonary: Dyspnea, No Cough Cardiovascular: No: Chest Pain, Palpitations Gastrointestinal: No: Nausea, Abdominal Pain, Diarrhea, Constipation Genitourinary: Frequency, Incontinence Musculoskeletal: back pain Neurological: Weakness Objective Exam Vital Signs Date Time Temp Pulse Resp B/P (MAP) Pulse Ox O2 Delivery O2 Flow Rate FiO2 01/29/17 08:00 97.1 81 24 112/69 98 Nasal Cannula 3.00 01/29/17 03:05 95 Nasal Cannula 3.00 01/29/17 00:45 98.2 82 18 123/71 97 Nasal Cannula 3.00 01/28/17 22:29 95 Nasal Cannula 3.00 01/28/17 20:40 Nasal Cannula 3.00 01/28/17 16:36 97.9 82 18 103/63 98 Nasal Cannula 3.00 01/28/17 14:55 94 Nasal Cannula 3.00 01/28/17 09:49 94 Nasal Cannula 3.00 Capillary Refill : Less Than 3 Seconds General Appearance: No Apparent Distress, Obese HEENT: PERRL/EOMI Neck: Full Range of Motion Respiratory: Chest Non Tender, Lungs Clear, Decreased Breath Sounds (DUE TO BODY HABITUS) Cardiovascular: Regular Rate, Rhythm Gastrointestinal: other (LARGE PANUS - EDEMATOUS, BUT IMPROVED FROM ADMISSION, SOME SOFTENING OF THE PANUS TODAY COMPARED TO YESTERDAY AND FROM ADMISSION, STILL EDEMA UP TO RIGHT BREAST AND LEFT MID CHEST WALL) Neurologic/Psychiatric: Alert, Oriented x3, Normal Mood/Affect Skin: Warm/Dry, Erythema (BILATERAL LOWER EXTREMITIES - BUT ERYTHEMA AND EDEMA IS IMPROVED FROM ADMISSION) Lymphatic: No Adenopathy Results Lab Laboratory Tests 01/28/17 10:45: Glucometer 139H 01/28/17 16:18: Glucometer 169H 01/28/17 20:35: Glucometer 240H 01/29/17 05:01: Glucometer 123H 01/29/17 07:37: White Blood Count 7.5, Red Blood Count 4.39, Hemoglobin 11.3L, Hematocrit 40, Mean Corpuscular Volume 90, Mean Corpuscular Hemoglobin 26, Mean Corpuscular Hemoglobin Concent 29L, Red Cell Distribution Width 15.9H, Platelet Count 231, Mean Platelet Volume 10.7H, Sodium Level 138, Potassium Level 4.0, Chloride Level 88L, Carbon Dioxide Level 38H, Anion Gap 12, Blood Urea Nitrogen 22H, Creatinine 1.13, Estimat Glomerular Filtration Rate > 60, BUN/Creatinine Ratio 19, Glucose Level 92, Calcium Level 9.0, Vancomycin Level Trough 26.6*H Microbiology 01/23/17 Blood Culture - Preliminary, Resulted No growth 01/23/17 Gram Stain - Final, Complete 01/23/17 Wound Culture - Final, Complete Morganella Morganii Staphylococcus Aureus Proteus Mirabilis Assessment/Plan Assessment/Plan Assess & Plan/Chief Complaint ANASARCA CELLULITIS FLUID OVERLOAD LOWER EXTREMITY EDEMA RENAL INSUFFICIENCY DIABETES MELLITUS HYPERTENSION SEVERE MORBID OBESITY ANEMIA ANASARCA WITH GROSS FLUID OVERLOAD AND LOWER EXTREMITY EDEMA - CONTINUE WITH LASIX - 80MG BID, MONITOR DAILY WEIGHTS, ELEVATE RIGHT FLANK OFF OF BED - IMPROVED WEIGHT FROM 254 KG ON ADMIT DOWN TO 215 KG TODAY. CELLULITIS - CONTINUE WITH ZOSYN AND VANCOMYCIN RENAL INSUFFICIENCY - MONITOR RENAL FUNCTION - ON LASIX AND ZOSYN AND VANCOMYCIN DIABETES MELLITUS - SLIDING SCALE INSULIN. MONITOR SYMPTOMS - ADA DIET. HYPERTENSION - RESTARTED HOME MEDICATIONS GI PROPHYLAXIS - PPI - STARTED ON PROTONIX DVT PROPHYLAXIS - COMPRESSION AND LOVENOX. I HAVE DISCUSSED WITH THE PATIENT AND HIS (ON THE PHONE) ABOUT NEED FOR CONTINUED IV ANTIBIOTICS. THE POSSIBILITY OF [facility] HAS BEEN RAISED , HOWEVER HIS REPORTS THAT SHE CANNOT AFFORD FOR LANCE TO GO TO [facility] - SHE DOES NOT THINK THAT HER INSURANCE WILL PAY FOR [facility]. I HAVE TALKED TO SOCIAL WORK AND INSURANCE DOES COVER [facility] - BUT PATIENT AND HIS WILL NOT AGREE TO THE TRANSFER DUE TO HER JOB IN [place] AND THE BURDEN OF TRAVEL FOR HER TO VISIT [facility]ANCE IN THE HOSPITAL IN [place]. Clinical Quality Measures DVT/VTE Risk/Contraindication: Risk Factor Score Per Nursin RFS Level Per Nursing on Admit: 4+=Very High NITO NICOLAS MD Jan 29, 2017 09:09
[2017-01-29] MEDS: VANCOMYCIN INJECTION 2,000 MG in NS IV 500 ML 500 ML IV SCH (10:21)
[2017-01-29] MEDS: GABAPENTIN 400 MG (NEURONTIN) CAP PO SCH ×3 (10:37→21:16)
[2017-01-29] MEDS: FUROSEMIDE 40 MG/4 ML INJ (LASIX) IV SCH ×2 (10:37→21:16)
[2017-01-29 16:50] VITALS: BP 103/51
[2017-01-29] MEDS: morphine IMMEDIATE RELEASE 15 MG TABLET PO PRN (18:04)
[2017-01-29] MEDS: inSUlin NPH/REG (NovoLIN 70/30) CHARGE PER UNIT SQ SCH (21:16)
[2017-01-30 00:22] VITALS: BP 124/70
[2017-01-30] MEDS: RT-ALBUTEROL/IPRATROPIUM 3 ML (DUONEB) VIAL INH SCH ×7 (02:00→23:13)
[2017-01-30] MEDS: PIPERACILLIN/TAZOBACTAM 4.5 GM/NS100 ML IVPB IV SCH ×4 (02:33→09:11)
[2017-01-30] MEDS: NS W/KCL 40 MEQ/L 1,000 ML IV SCH ×2 (04:54→09:11)
[2017-01-30] MEDS: inSUlin (REGULAR) HUMAN 1 UNIT/0.01 ML (CHARGE PER UNIT) SC SCH ×4 (05:36→21:31)
[2017-01-30] MEDS ORDERED: TROUGH ORDER-PHARMACY XX ONE (06:00)
[2017-01-30 08:00] VITALS: BP 129/73
[2017-01-30] MEDS: FUROSEMIDE 40 MG/4 ML INJ (LASIX) IV SCH (09:11)
[2017-01-30] MEDS: GABAPENTIN 400 MG (NEURONTIN) CAP PO SCH ×3 (09:11→21:31)
--- NOTE | 2017-01-30 10:40 | Progress Note (SOAP) ---
Subjective Date Seen by Provider: Jan 30, 2017 Time Seen by Provider: 09:10 Subjective/Events-last exam PT IS A 62 Y/O MALE WHO HAS CELLULITIS OF LOWER EXTREMITIES - RIGHT GREATER THAN LEFT. HE WAS ALERT TODAY - REPORTS THAT HE WAS UPSET WITH THE NURSING STAFF BECAUSE THEY PUT HIS URINAL ON HIS BEDSIDE TABLE AND HE THINKS THAT IS UNACCEPTABLE. HE STATES THAT HE IS BREATHING BETTER, HIS LEGS DO NOT FEEL WARM AND SWOLLEN ON ADMISSION Review of Systems General: Fatigue HEENT: No Head Aches, No Dysphasia, No Sore Throat Pulmonary: Dyspnea, No Cough Cardiovascular: Edema, No: Chest Pain, Palpitations Gastrointestinal: No: Nausea, Abdominal Pain Genitourinary: No Dysuria, Frequency Musculoskeletal: back pain, leg pain Neurological: Weakness, No: Confusion Objective Exam Vital Signs Date Time Temp Pulse Resp B/P (MAP) Pulse Ox O2 Delivery O2 Flow Rate FiO2 01/30/17 08:00 96.6 88 20 129/73 95 Nasal Cannula 3.00 01/30/17 07:37 93 Nasal Cannula 3.00 01/30/17 02:48 Nasal Cannula 3.00 01/30/17 00:22 97.8 91 18 124/70 95 Nasal Cannula 3.00 01/29/17 22:18 93 Nasal Cannula 3.00 01/29/17 20:00 Nasal Cannula 3.00 01/29/17 16:50 98.0 94 18 103/51 96 Nasal Cannula 3.00 01/29/17 15:59 97 93 32 01/29/17 14:18 93 Nasal Cannula 3.00 Capillary Refill : Less Than 3 Seconds General Appearance: No Apparent Distress, Obese Neck: Supple Respiratory: Chest Non Tender, Lungs Clear, Other (DISTANT BREATH SOUNDS DUE TO BODY HABITUS) Cardiovascular: Regular Rate, Rhythm Gastrointestinal: normal bowel sounds, other (EDEMA OF PANUS) Extremity: Pedal Edema (4+PITTING BILATERAL LOWER EXTREMITIES - IMPROVED FROM ADMISSION) Neurologic/Psychiatric: Alert, Oriented x3, No Motor/Sensory Deficits, Normal Mood/Affect Skin: Erythema (BILATERAL LOWER EXTREMITIES) Results Lab Laboratory Tests 01/29/17 11:11: Glucometer 89 01/29/17 16:52: Glucometer 147H 01/29/17 20:55: Glucometer 252H 01/30/17 05:28: Glucometer 113H 01/30/17 06:30: Vancomycin Level Trough 19.0 Microbiology 01/23/17 Blood Culture - Final, Complete No growth 01/23/17 Gram Stain - Final, Complete 01/23/17 Wound Culture - Final, Complete Morganella Morganii Staphylococcus Aureus Proteus Mirabilis Assessment/Plan Assessment/Plan Assess & Plan/Chief Complaint ANASARCA CELLULITIS FLUID OVERLOAD LOWER EXTREMITY EDEMA RENAL INSUFFICIENCY DIABETES MELLITUS HYPERTENSION SEVERE MORBID OBESITY ANEMIA ANASARCA WITH GROSS FLUID OVERLOAD AND LOWER EXTREMITY EDEMA - CONTINUE WITH LASIX -DECREASE DOSE TO 60MG IV AM AND 40MG IV PM, CONTINUE TO MONITOR DAILY WEIGHTS, ELEVATE RIGHT FLANK OFF OF BED - IMPROVED WEIGHT FROM 254 KG ON ADMIT DOWN TO 216 KG TODAY. CELLULITIS - CONTINUE WITH VANCOMYCIN - CHANGE ZOSYN TO ROCEPHIN. RENAL INSUFFICIENCY - MONITOR RENAL FUNCTION - ON LASIX AND VANCOMYCIN DIABETES MELLITUS - SLIDING SCALE INSULIN. MONITOR SYMPTOMS - ADA DIET. HYPERTENSION - RESTARTED HOME MEDICATIONS GI PROPHYLAXIS - PPI - STARTED ON PROTONIX DVT PROPHYLAXIS - COMPRESSION AND LOVENOX. I HAVE DISCUSSED WITH THE PATIENT AND HIS (ON THE PHONE) ABOUT NEED FOR CONTINUED IV ANTIBIOTICS. THE POSSIBILITY OF [facility] HAS BEEN RAISED , HOWEVER HIS REPORTS THAT SHE CANNOT AFFORD FOR LANCE TO GO TO [facility] - SHE DOES NOT THINK THAT HER INSURANCE WILL PAY FOR [facility]. I HAVE TALKED TO SOCIAL WORK AND INSURANCE DOES COVER [facility] - BUT PATIENT AND HIS WILL NOT AGREE TO THE TRANSFER DUE TO HER JOB IN [place] AND THE BURDEN OF TRAVEL FOR HER TO VISIT [facility]ANCE IN THE HOSPITAL IN [place]. Clinical Quality Measures DVT/VTE Risk/Contraindication: Risk Factor Score Per Nursin RFS Level Per Nursing on Admit: 4+=Very High NITO NICOLAS MD Jan 30, 2017 10:40 am
[2017-01-30] MEDS: HYDROcodone/APAP 10 MG/325 MG (LORTAB) TAB PO PRN (11:57)
[2017-01-30 16:25] VITALS: BP 117/57
[2017-01-30] MEDS: cefTRIAXone INJECTION 2,000 MG in NS (IVPB) 50 ML IV SCH (16:33)
[2017-01-30] MEDS: morphine IMMEDIATE RELEASE 15 MG TABLET PO PRN (16:33)
[2017-01-30] MEDS: FUROSEMIDE 40 MG/4 ML INJ (LASIX) IVP SCH (16:33)
[2017-01-30] MEDS: inSUlin NPH/REG (NovoLIN 70/30) CHARGE PER UNIT SQ SCH (21:31)
[2017-01-31] VITALS: BP 119/59
[2017-01-31] MEDS: RT-ALBUTEROL/IPRATROPIUM 3 ML (DUONEB) VIAL INH SCH ×6 (02:54→22:26)
[2017-01-31 04:00] VITALS: BP 129/77
[2017-01-31] MEDS: NS W/KCL 40 MEQ/L 1,000 ML IV SCH ×2 (04:36→18:09)
[2017-01-31] MEDS ORDERED: TROUGH ORDER-PHARMACY XX ONE (06:00)
[2017-01-31] MEDS: inSUlin (REGULAR) HUMAN 1 UNIT/0.01 ML (CHARGE PER UNIT) SC SCH ×4 (06:07→21:15)
[2017-01-31 06:08] LABS: ALANINE AMINOTRANSFERASE 9 U/L (0-55); ALBUMIN 3.5 GM/DL (3.2-4.5); ANION GAP 12 MMOL/L (5-14); ASPARTATE AMINO TRANSFERASE 19 U/L (5-34); BILIRUBIN,TOTAL 0.6 MG/DL (0.1-1.0); BLOOD UREA NITROGEN 25 MG/DL (7-18); BUN/CREATININE RATIO 25; CALCIUM 9.3 MG/DL (8.5-10.1); CARBON DIOXIDE 36 MMOL/L (21-32); CHLORIDE 90 MMOL/L (98-107); GFR ESTIMATED > 60; GLUCOSE 82 MG/DL (70-105); POTASSIUM 3.9 MMOL/L (3.6-5.0); SODIUM 138 MMOL/L (135-145); TOTAL PROTEIN 7.8 GM/DL (6.4-8.2)
[2017-01-31] MEDS: GABAPENTIN 400 MG (NEURONTIN) CAP PO SCH ×3 (07:58→21:15)
[2017-01-31] MEDS: cefTRIAXone INJECTION 2,000 MG in NS (IVPB) 50 ML IV SCH (07:59)
[2017-01-31] MEDS: FUROSEMIDE 40 MG/4 ML INJ (LASIX) IVP SCH ×2 (07:59→18:09)
[2017-01-31 08:00] VITALS: BP 124/70
[2017-01-31] MEDS ORDERED: VANCOMYCIN INJECTION 2,000 MG in NS IV 500 ML 500 ML IV SCH (09:00)
[2017-01-31] MEDS: HYDROcodone/APAP 10 MG/325 MG (LORTAB) TAB PO PRN ×2 (10:04→15:59)
[2017-01-31] MEDS: KCL 10 MEQ TAB (MICRO K) PO SCH (11:35)
[2017-01-31] MEDS ORDERED: cefTRIAXone INJECTION 2,000 MG in NS (IVPB) 50 ML IV SCH (16:00)
[2017-01-31 16:34] VITALS: BP 121/69
[2017-01-31] MEDS: inSUlin NPH/REG (NovoLIN 70/30) CHARGE PER UNIT SQ SCH (21:15)
[2017-02-01] VITALS: BP 130/71
[2017-02-01] MEDS: HYDROcodone/APAP 10 MG/325 MG (LORTAB) TAB PO PRN ×3 (00:58→16:28)
[2017-02-01] MEDS: RT-ALBUTEROL/IPRATROPIUM 3 ML (DUONEB) VIAL INH SCH ×5 (02:06→23:00)
[2017-02-01] MEDS: inSUlin (REGULAR) HUMAN 1 UNIT/0.01 ML (CHARGE PER UNIT) SC SCH ×4 (06:14→22:33)
[2017-02-01 08:00] VITALS: BP 128/81
[2017-02-01] MEDS ORDERED: TROUGH ORDER-PHARMACY XX NR (08:00)
[2017-02-01] MEDS: NS W/KCL 40 MEQ/L 1,000 ML IV SCH ×2 (09:35→23:53)
[2017-02-01] MEDS: cefTRIAXone INJECTION 2,000 MG in NS (IVPB) 50 ML IV SCH (09:35)
[2017-02-01] MEDS: FUROSEMIDE 40 MG/4 ML INJ (LASIX) IVP SCH ×2 (09:35→16:28)
[2017-02-01] MEDS: KCL 10 MEQ TAB (MICRO K) PO SCH (09:36)
[2017-02-01] MEDS: GABAPENTIN 400 MG (NEURONTIN) CAP PO SCH ×3 (09:36→22:35)
[2017-02-01] MEDS: morphine IMMEDIATE RELEASE 15 MG TABLET PO PRN (12:31)
--- NOTE | 2017-02-01 13:28 | Progress Note-Hospitalist ---
Standard Progress Note Progress Notes/Assess & Plan Date Seen 02/01/17 Time Seen by Provider: 13:25 Diagnosis Assessment: Anasarca severe and recurrent Lower extremity edema chronic CRI DM HTN Severe morbid obesity Anemia of chronic disease Assess & Plan/Chief Complaint The patient's weight and diuresis appeared to have plateaued. He reports there are no draining wounds on the legs. Physical exam: There is morbidly morbid obesity. Lungs are clear to auscultation. CV is regular. Abdomen is huge. Extremities show purplish erythema in the left lower extremity. This abnormality is greater on the right with purplish erythema to the knee. In addition no open wounds are noted but alligator character to the scan and hyperkeratosis are noted. Impression: Anasarca, improving. 2.severe venous stasis dermatitis right lower leg greater than left. 3.possible cellulitis. Plan: Continue present regimen. Labs Laboratory Tests 01/31/17 05:33 NATI LARSEN MD Feb 01, 2017 13:28
[2017-02-01 15:13] VITALS: BP 130/71
[2017-02-01 16:00] VITALS: BP 137/72
[2017-02-01] MEDS: inSUlin NPH/REG (NovoLIN 70/30) CHARGE PER UNIT SQ SCH (22:33)
[2017-02-02 00:10] VITALS: BP 137/76
[2017-02-02] MEDS: morphine IMMEDIATE RELEASE 15 MG TABLET PO PRN (01:51)
[2017-02-02] MEDS: RT-ALBUTEROL/IPRATROPIUM 3 ML (DUONEB) VIAL INH SCH ×6 (02:24→22:05)
[2017-02-02] MEDS: inSUlin (REGULAR) HUMAN 1 UNIT/0.01 ML (CHARGE PER UNIT) SC SCH ×4 (05:40→21:09)
[2017-02-02] MEDS: HYDROcodone/APAP 10 MG/325 MG (LORTAB) TAB PO PRN ×3 (06:46→18:13)
[2017-02-02 07:34] LABS: ALANINE AMINOTRANSFERASE 11 U/L (0-55); ALBUMIN 3.6 GM/DL (3.2-4.5); ANION GAP 11 MMOL/L (5-14); ASPARTATE AMINO TRANSFERASE 22 U/L (5-34); BILIRUBIN,TOTAL 0.5 MG/DL (0.1-1.0); BLOOD UREA NITROGEN 24 MG/DL (7-18); BUN/CREATININE RATIO 26; CALCIUM 9.5 MG/DL (8.5-10.1); CARBON DIOXIDE 31 MMOL/L (21-32); CHLORIDE 95 MMOL/L (98-107); CREATININE SERUM 0.93 MG/DL (0.60-1.30); GFR ESTIMATED > 60; GLUCOSE 73 MG/DL (70-105); SODIUM 137 MMOL/L (135-145); TOTAL PROTEIN 7.9 GM/DL (6.4-8.2)
--- NOTE | 2017-02-02 07:43 | Progress Note (SOAP) ---
Subjective Date Seen by Provider: Feb 02, 2017 Time Seen by Provider: 07:55 Subjective/Events-last exam PT REPORTS THAT HE IS DOING WELL, HE DENIES CHEST PAIN, DENIES SHORTNESS OF BREATH. HE WANTS TO MAKE SURE THAT HE WILL BE GOOD TO GO HOME TOMORROW - HE IS WORRIED ABOUT THE "600 DOLLARS PER TRANSFER" FEE. Review of Systems General: Fatigue HEENT: No Head Aches Pulmonary: Dyspnea, No Cough Cardiovascular: No: Chest Pain Gastrointestinal: No: Nausea, Abdominal Pain Neurological: Weakness Objective Exam Vital Signs Date Time Temp Pulse Resp B/P (MAP) Pulse Ox O2 Delivery O2 Flow Rate FiO2 02/02/17 02:24 98 Nasal Cannula 3.00 02/01/17 16:00 96.0 107 20 137/72 97 Nasal Cannula 3.00 02/01/17 15:13 105 97 32 02/01/17 15:13 97 Nasal Cannula 3.00 02/01/17 08:50 Nasal Cannula 3.00 02/01/17 08:00 97.7 107 20 128/81 95 Capillary Refill : Less Than 3 Seconds General Appearance: No Apparent Distress, Obese Respiratory: Chest Non Tender, Lungs Clear, Normal Breath Sounds Cardiovascular: Regular Rate, Rhythm Gastrointestinal: normal bowel sounds, non tender Extremity: Pedal Edema Neurologic/Psychiatric: Alert, Oriented x3, Normal Mood/Affect Skin: Erythema (TOP OF RIGHT THIGH) Results Lab Laboratory Tests 02/01/17 07:55: Vancomycin Level Trough 21.0H 02/01/17 11:16: Glucometer 116H 02/01/17 16:02: Glucometer 171H 02/01/17 21:57: Glucometer 208H 02/02/17 05:33: Glucometer 82 02/02/17 06:39: Sodium Level 137, Potassium Level 4.0, Chloride Level 95L, Carbon Dioxide Level 31, Anion Gap 11, Blood Urea Nitrogen 24H, Creatinine 0.93, Estimat Glomerular Filtration Rate > 60, BUN/Creatinine Ratio 26, Glucose Level 73, Calcium Level 9.5, Total Bilirubin 0.5, Aspartate Amino Transf (AST/SGOT) 22, Alanine Aminotransferase (ALT/SGPT) 11, Alkaline Phosphatase 71, Total Protein 7.9, Albumin 3.6 Microbiology 01/23/17 Blood Culture - Final, Complete No growth 01/23/17 Gram Stain - Final, Complete 01/23/17 Wound Culture - Final, Complete Morganella Morganii Staphylococcus Aureus Proteus Mirabilis Assessment/Plan Assessment/Plan Assess & Plan/Chief Complaint ANASARCA CELLULITIS FLUID OVERLOAD LOWER EXTREMITY EDEMA RENAL INSUFFICIENCY DIABETES MELLITUS HYPERTENSION SEVERE MORBID OBESITY ANEMIA ANASARCA WITH GROSS FLUID OVERLOAD AND LOWER EXTREMITY EDEMA - CONTINUE WITH LASIX -ON THURSDAY I DECREASED DOSE TO 60MG IV AM AND 40MG IV PM, CONTINUE TO MONITOR DAILY WEIGHTS, ELEVATE RIGHT FLANK OFF OF BED - IMPROVED WEIGHT FROM 254 KG ON ADMIT, WEIGHT AT 217KG TODAY - UP FROM THURSDAY WHEN HIS WEIGHT WAS 215KG. WILL HAVE TO INCREASE LASIX TO 60MG IV BID TODAY - MONITOR WEIGHT TOMORROW. CELLULITIS - CONTINUE WITH VANCOMYCIN - CHANGED ZOSYN TO ROCEPHIN. RENAL INSUFFICIENCY - MONITOR RENAL FUNCTION - ON LASIX AND VANCOMYCIN DIABETES MELLITUS - SLIDING SCALE INSULIN. MONITOR SYMPTOMS - ADA DIET. HYPERTENSION - RESTARTED HOME MEDICATIONS GI PROPHYLAXIS - PPI - STARTED ON PROTONIX DVT PROPHYLAXIS - COMPRESSION AND LOVENOX. I HAVE DISCUSSED WITH THE PATIENT AND HIS (ON THE PHONE) ABOUT NEED FOR CONTINUED IV ANTIBIOTICS. THE POSSIBILITY OF [facility] HAS BEEN RAISED , HOWEVER HIS REPORTS THAT SHE CANNOT AFFORD FOR LANCE TO GO TO [facility] - SHE DOES NOT THINK THAT HER INSURANCE WILL PAY FOR [facility]. I HAVE TALKED TO SOCIAL WORK AND INSURANCE DOES COVER [facility] - BUT PATIENT AND HIS WILL NOT AGREE TO THE TRANSFER DUE TO HER JOB IN [place] AND THE BURDEN OF TRAVEL FOR HER TO VISIT LANCE IN THE HOSPITAL IN [place]. Clinical Quality Measures DVT/VTE Risk/Contraindication: Risk Factor Score Per Nursin RFS Level Per Nursing on Admit: 4+=Very High NITO NICOLAS MD Feb 02, 2017 07:43
[2017-02-02 08:00] VITALS: BP 127/76
[2017-02-02] MEDS: FUROSEMIDE 40 MG/4 ML INJ (LASIX) IVP SCH ×2 (08:32→18:12)
[2017-02-02] MEDS: GABAPENTIN 400 MG (NEURONTIN) CAP PO SCH ×3 (08:34→21:09)
[2017-02-02] MEDS: cefTRIAXone INJECTION 2,000 MG in NS (IVPB) 50 ML IV SCH (08:35)
[2017-02-02] MEDS: NS W/KCL 40 MEQ/L 1,000 ML IV SCH (08:37)
[2017-02-02] MEDS: VANCOMYCIN 1500 MG/NS 500 ML IVPB IV SCH ×2 (09:10)
[2017-02-02] MEDS ORDERED: FUROSEMIDE 40 MG/4 ML INJ (LASIX) IVP NR (09:15)
[2017-02-02 16:20] VITALS: BP 119/68
[2017-02-02] MEDS: inSUlin NPH/REG (NovoLIN 70/30) CHARGE PER UNIT SQ SCH (21:08)
[2017-02-03 00:37] VITALS: BP 122/72
[2017-02-03] MEDS: RT-ALBUTEROL/IPRATROPIUM 3 ML (DUONEB) VIAL INH SCH ×6 (01:40→22:17)
[2017-02-03] MEDS: inSUlin (REGULAR) HUMAN 1 UNIT/0.01 ML (CHARGE PER UNIT) SC SCH ×4 (05:59→22:00)
[2017-02-03 08:00] VITALS: BP 130/62
[2017-02-03] MEDS ORDERED: TROUGH ORDER-PHARMACY XX NR (08:00)
[2017-02-03] MEDS ORDERED: FUROSEMIDE 40 MG/4 ML INJ (LASIX) IVP NR (09:00)
--- NOTE | 2017-02-03 09:03 | Progress Note (SOAP) ---
Subjective Date Seen by Provider: Feb 03, 2017 Time Seen by Provider: 09:00 Subjective/Events-last exam PT REPORTS THAT HE HAS NO PAIN IN HIS LEGS THIS MORNING. HE STATES THAT HE IS NOT SHORT OF BREATH. HE DENIES ANY CHEST PAIN, ABDOMINAL PAIN. HE REPORTS THAT HE HAD ABOUT 1100 ML OF URINE OUTPUT THIS MORNING FROM 6 AM TO NOW. Review of Systems General: Fatigue HEENT: No Head Aches Pulmonary: No Dyspnea, No Cough Cardiovascular: No: Chest Pain, Palpitations Gastrointestinal: No: Nausea, Abdominal Pain Genitourinary: Frequency Neurological: Weakness, No: Confusion Objective Exam Vital Signs Date Time Temp Pulse Resp B/P (MAP) Pulse Ox O2 Delivery O2 Flow Rate FiO2 02/03/17 00:37 98.8 90 20 122/72 94 Nasal Cannula 2.00 02/02/17 22:05 93 Nasal Cannula 2.00 02/02/17 20:00 Nasal Cannula 3.00 02/02/17 19:17 94 Nasal Cannula 2.00 02/02/17 16:20 98.4 85 18 119/68 96 Nasal Cannula 2.00 02/02/17 14:49 95 Nasal Cannula 2.00 Capillary Refill : Less Than 3 Seconds General Appearance: No Apparent Distress, Obese HEENT: PERRL/EOMI Neck: Supple Respiratory: Chest Non Tender, Lungs Clear, Normal Breath Sounds, No Accessory Muscle Use Cardiovascular: Regular Rate, Rhythm Gastrointestinal: normal bowel sounds, non tender, other (EDEMATOUS PANNUS) Extremity: Pedal Edema Neurologic/Psychiatric: Alert, Oriented x3 Skin: Erythema (IMPROVED ON RIGHT LOWER LEG) Results Lab Laboratory Tests 02/02/17 11:10: Glucometer 111H 02/02/17 16:23: Glucometer 147H 02/02/17 20:32: Glucometer 236H 02/03/17 05:58: Glucometer 126H 02/03/17 08:44: Microbiology 01/23/17 Blood Culture - Final, Complete No growth 01/23/17 Gram Stain - Final, Complete 01/23/17 Wound Culture - Final, Complete Morganella Morganii Staphylococcus Aureus Proteus Mirabilis Assessment/Plan Assessment/Plan Assess & Plan/Chief Complaint ANASARCA CELLULITIS FLUID OVERLOAD LOWER EXTREMITY EDEMA RENAL INSUFFICIENCY DIABETES MELLITUS HYPERTENSION SEVERE MORBID OBESITY ANEMIA ANASARCA WITH GROSS FLUID OVERLOAD AND LOWER EXTREMITY EDEMA - CONTINUE WITH LASIX -INCREASED DOSE TO 60MG IV AM AND 60MG IV PM YESTERDAY DUE TO FLUID BUILD- UP AGAIN ON LOWER BODY/ABDOMEN, CONTINUE TO MONITOR DAILY WEIGHTS, ELEVATE RIGHT FLANK OFF OF BED - IMPROVED WEIGHT FROM 254 KG ON ADMIT DOWN TO 215 KG TODAY. CELLULITIS - CONTINUE WITH VANCOMYCIN AND ROCEPHIN. RENAL INSUFFICIENCY - MONITOR RENAL FUNCTION - ON LASIX AND VANCOMYCIN DIABETES MELLITUS - SLIDING SCALE INSULIN. MONITOR SYMPTOMS - ADA DIET. HYPERTENSION - RESTARTED HOME MEDICATIONS GI PROPHYLAXIS - PPI - STARTED ON PROTONIX DVT PROPHYLAXIS - COMPRESSION AND LOVENOX. I HAVE DISCUSSED WITH THE PATIENT AND HIS (ON THE PHONE) ABOUT NEED FOR CONTINUED IV ANTIBIOTICS. THE POSSIBILITY OF [facility] HAS BEEN RAISED , HOWEVER HIS REPORTS THAT SHE CANNOT AFFORD FOR LANCE TO GO TO [facility] - SHE DOES NOT THINK THAT HER INSURANCE WILL PAY FOR [facility]. I HAVE TALKED TO SOCIAL WORK AND INSURANCE DOES COVER [facility] - BUT PATIENT AND HIS WILL NOT AGREE TO THE TRANSFER DUE TO HER JOB IN [place] AND THE BURDEN OF TRAVEL FOR HER TO VISIT LANCE IN THE HOSPITAL IN [place]. HOPEFULLY WILL DISCHARGE TO HOME ON 02/04/17 AFTER 4PM (WHEN HIS GETS OFF OF WORK). - WILL NEED AMBULANCE TRANSFER. Clinical Quality Measures DVT/VTE Risk/Contraindication: Risk Factor Score Per Nursin RFS Level Per Nursing on Admit: 4+=Very High NITO NICOLAS MD Feb 03, 2017 09:03
[2017-02-03] MEDS: cefTRIAXone INJECTION 2,000 MG in NS (IVPB) 50 ML IV SCH (09:30)
[2017-02-03] MEDS: FUROSEMIDE 40 MG/4 ML INJ (LASIX) IVP SCH ×2 (09:31→15:19)
[2017-02-03] MEDS: VANCOMYCIN 1500 MG/NS 500 ML IVPB IV SCH ×2 (09:31)
[2017-02-03] MEDS: morphine IMMEDIATE RELEASE 15 MG TABLET PO PRN (09:33)
[2017-02-03] MEDS: HYDROcodone/APAP 10 MG/325 MG (LORTAB) TAB PO PRN ×2 (09:33→15:19)
[2017-02-03] MEDS: GABAPENTIN 400 MG (NEURONTIN) CAP PO SCH ×3 (09:33→22:00)
[2017-02-03 16:00] VITALS: BP 152/67
[2017-02-03] MEDS: inSUlin NPH/REG (NovoLIN 70/30) CHARGE PER UNIT SQ SCH (21:59)
[2017-02-03 23:35] VITALS: BP 148/74
[2017-02-04] MEDS: inSUlin (REGULAR) HUMAN 1 UNIT/0.01 ML (CHARGE PER UNIT) SC SCH ×3 (05:14→16:47)
[2017-02-04 06:56] LABS: ALANINE AMINOTRANSFERASE 13 U/L (0-55); ALBUMIN 3.6 GM/DL (3.2-4.5); ANION GAP 9 MMOL/L (5-14); ASPARTATE AMINO TRANSFERASE 22 U/L (5-34); BILIRUBIN,TOTAL 0.4 MG/DL (0.1-1.0); BLOOD UREA NITROGEN 20 MG/DL (7-18); BUN/CREATININE RATIO 25; CALCIUM 9.5 MG/DL (8.5-10.1); CARBON DIOXIDE 31 MMOL/L (21-32); CHLORIDE 98 MMOL/L (98-107); GFR ESTIMATED > 60; GLUCOSE 94 MG/DL (70-105); POTASSIUM 3.8 MMOL/L (3.6-5.0); SODIUM 138 MMOL/L (135-145); TOTAL PROTEIN 7.9 GM/DL (6.4-8.2)
[2017-02-04] MEDS: RT-ALBUTEROL/IPRATROPIUM 3 ML (DUONEB) VIAL INH SCH ×4 (07:00→14:08)
[2017-02-04 08:00] VITALS: BP 139/71
[2017-02-04] MEDS: FUROSEMIDE 40 MG/4 ML INJ (LASIX) IVP SCH (08:21)
[2017-02-04] MEDS: GABAPENTIN 400 MG (NEURONTIN) CAP PO SCH ×2 (08:21→13:54)
[2017-02-04] MEDS: cefTRIAXone INJECTION 2,000 MG in NS (IVPB) 50 ML IV SCH (08:22)
[2017-02-04] MEDS: VANCOMYCIN 1500 MG/NS 500 ML IVPB IV SCH ×2 (08:26)
[2017-02-04] MEDS ORDERED: POTA10TA10 PO (08:42)
[2017-02-04] MEDS ORDERED: FURO40TA4 PO (08:42)
[2017-02-04] MEDS ORDERED: FURO20TA4 PO (08:42)
--- NOTE | 2017-02-04 08:43 | Discharge Inst-Complex ---
PDI Med Rec & Follow Up Appt. New Medications: Furosemide (Furosemide) 20 Mg Tablet 20 MG PO UD for 30 Days, #30 TAB 3 Refills GIVE AT 5PM DAILY X 2 WEEKS THEN NEEDED FOR INCREASED EDEMA THROUGHOUT THE DAY Furosemide (Furosemide) 40 Mg Tablet 40 MG PO DAILY for 30 Days, #30 TAB 2 Refills Potassium Chloride (Potassium Chloride) 10 Meq Tablet.er 10 MEQ PO UD for 30 Days, #30 TAB TAKE FOUR TIMES A WEEK Continued Medications: Gabapentin (Gabapentin) 800 Mg Tablet 800 MG PO TID, TAB Hydrocodone/Acetaminophen (Hydrocodon-Acetaminophn 10-325) 1 Each Tablet 2 TAB PO Q6H PRN for PAIN-MODERATE Insulin NPH Hum/Reg Insulin Hm (Novolin 70-30 100 Unit/ml Vial) 100 Unit/1 Ml Vial 100 UNITS SQ HS, EA Insulin NPH Hum/Reg Insulin Hm (Novolin 70-30 100 Unit/ml Vial) 100 Unit/1 Ml Vial 50 UNIT SQ DAILY PRN for BS ABOVE 150, VIAL Morphine Sulfate (Morphine Sulfate) 15 Mg Tablet 15 MG PO BID PRN for PAIN-SEVERE Discontinued Medications: Furosemide (Furosemide) 80 Mg Tablet 80 MG PO SuSa, TAB Furosemide (Furosemide) 40 Mg Tablet 40 MG PO [id number] Potassium Chloride (Potassium Chloride) 10 Meq Tablet.er 10 MEQ PO SuSa, TAB Prescription: Transmitted to [facility] ([email or web address]) Activity, Diet and PDI Resume Normal Activity: Yes Discharge Diet: Low Sodium Diet Drink 6-8 Glasses of Fluid/Day: Yes Driving Instructions: No Driving/Refer to Symptoms to Reoprt to : Appetite Changes, Pain/Pressure in Chest, Shortness of Breath For Problems or Questions: Contact Your Physician, Go to Emergency Room Infection Signs and Symptoms: Increased Redness, Increased Drainage, Increased Swelling, Temperature Above 101 F NITO NICOLAS MD Feb 04, 2017 08:43
--- NOTE | 2017-02-04 08:45 | Discharge Summary ---
Diagnosis/Chief Complaint Date of Admission Jan 23, 2017 at 20:56 Date of Discharge Discharge Date: Feb 04, 2017 Discharge Time: 1500 Admission Diagnosis Admission Diagnosis ANASARCA CELLULITIS FLUID OVERLOAD LOWER EXTREMITY EDEMA RENAL INSUFFICIENCY DIABETES MELLITUS HYPERTENSION SEVERE MORBID OBESITY ANEMIA Discharge Diagnosis ANASARCA CELLULITIS FLUID OVERLOAD LOWER EXTREMITY EDEMA RENAL INSUFFICIENCY DIABETES MELLITUS HYPERTENSION SEVERE MORBID OBESITY ANEMIA Reason Hospital Visit This is a patient of Dr. Treviño'jeff who presented to the ER with reports of low oxygen level although he reports that he was not short of breath. He has multiple hospitalizations for anasarca and volume overload he remains DO NOT RESUSCITATE and DO NOT INTUBATE the cause of his morbid super obesity with BMI of 80 he is infrequently for IV diuretic therapy. He is CO2 was 88 on ABG with pH of 7.2 and he was placed on BiPAP therapy with good results. He at this current time is ordering lunch and I review and reconcile all of his home medication and denies any significant issues except for neuropathy in his feet. He just completed antibiotic therapy for acute on chronic cellulitis due to venous stasis dermatitis of his lower legs. Discharge Summary Discharge Physical Examination Allergies: Coded Allergies: aspirin (Verified Adverse Reaction, Intermediate, CHEST PAIN, 01/22/13) Vitals & I&Os General Appearance: Alert, Oriented X3, Cooperative HEENT: Atraumatic, PERRLA Respiratory: Normal Air Movement, Other (Bilateral rhonchi) Cardiovascular: Normal S1, Normal S2, No Murmurs, Other (Distant heart sounds) Abdominal: Normal Bowel Sounds, Soft, No Tenderness, No Hepatosplenomegaly, No Masses Extremities: No Clubbing, No Cyanosis, No Tenderness/Swelling, Other Skin: No Significant Lesion Neuro: Normal Tone, Sensation Intact Psych/Mental Status: Mood NL Hospital Course ANASARCA CELLULITIS FLUID OVERLOAD LOWER EXTREMITY EDEMA RENAL INSUFFICIENCY DIABETES MELLITUS HYPERTENSION SEVERE MORBID OBESITY ANEMIA ANASARCA WITH GROSS FLUID OVERLOAD AND LOWER EXTREMITY EDEMA - CONTINUE WITH LASIX -INCREASED DOSE TO 60MG IV AM AND 60MG IV PM YESTERDAY DUE TO FLUID BUILD- UP AGAIN ON LOWER BODY/ABDOMEN, CONTINUE TO MONITOR DAILY WEIGHTS, ELEVATE RIGHT FLANK OFF OF BED - IMPROVED WEIGHT FROM 254 KG ON ADMIT DOWN TO 211 KG TODAY. CELLULITIS - FINISHED RX OV VANCOMYCIN AND ROCEPHIN RENAL INSUFFICIENCY - MONITOR RENAL FUNCTION - ON LASIX AND VANCOMYCIN DIABETES MELLITUS - SLIDING SCALE INSULIN. MONITOR SYMPTOMS - ADA DIET. HYPERTENSION - RESTARTED HOME MEDICATIONS GI PROPHYLAXIS - PPI - STARTED ON PROTONIX DVT PROPHYLAXIS - COMPRESSION AND LOVENOX. I HAVE DISCUSSED WITH THE PATIENT AND HIS (ON THE PHONE) ABOUT NEED FOR CONTINUED IV ANTIBIOTICS. THE POSSIBILITY OF [facility] HAS BEEN RAISED , HOWEVER HIS REPORTS THAT SHE CANNOT AFFORD FOR LANCE TO GO TO [facility] - SHE DOES NOT THINK THAT HER INSURANCE WILL PAY FOR [facility]. I HAVE TALKED TO SOCIAL WORK AND INSURANCE DOES COVER [facility] [place] - BUT PATIENT AND HIS WILL NOT AGREE TO THE TRANSFER DUE TO HER JOB IN [place] AND THE BURDEN OF TRAVEL FOR HER TO VISIT LANCE IN THE HOSPITAL IN [place]. WE WILL DISCHARGE THE PATIENT AFTER 4PM (WHEN HIS GETS OFF OF WORK). - WILL NEED AMBULANCE TRANSFER. Pending Labs Discharge Condition at discharge IMPROVED Instructions to patient/family Please see electronic discharge instructions given to patient. Discharge Medications Reviewed and agree with Discharge Medication list on patient's Discharge Instruction sheet Clinical Quality Measures DVT/VTE Risk/Contraindication: Risk Factor Score Per Nursin RFS Level Per Nursing on Admit: 4+=Very High NTIO TREVIÑO MD Feb 04, 2017 08:45
[2017-02-04] MEDS ORDERED: PNEUMOCOCCAL VACCINE 25 MCG/0.5 ML VIAL IM ONE (14:00)
[2017-02-04] MEDS ORDERED: INFLUENZA TRIvalent 2017-2018 0.5 ML/45 MCG SYR IM ONE (14:00)
[2017-02-04 15:22] VITALS: BP 139/71
[2017-02-04 16:30] VITALS: BP 139/71
[2017-02-04] MEDS: HYDROcodone/APAP 10 MG/325 MG (LORTAB) TAB PO PRN (16:48)
== END 2017-02-04 17:30 | disposition home or self-care (01) | DRG 948 ==
LOC: EDUNIT# 19:46 → ER 19:47 → 4TH 20:56
PROVIDERS: ADMIT Internal Medicine; ATTEND Family Medicine
DX: Z79.4 Long term (current) use of insulin; E66.2 Morbid (severe) obesity with alveolar hypoventilation; E78.00 Pure hypercholesterolemia, unspecified; E11.22 Type 2 diabetes mellitus with diabetic chronic kidney disease; I87.2 Venous insufficiency (chronic) (peripheral); N18.9 Chronic kidney disease, unspecified; I49.9 Cardiac arrhythmia, unspecified; L03.115 Cellulitis of right lower limb; L03.116 Cellulitis of left lower limb; E11.40 Type 2 diabetes mellitus with diabetic neuropathy, unspecified; Z87.891 Personal history of nicotine dependence; D63.1 Anemia in chronic kidney disease; I12.9 Hypertensive chronic kidney disease with stage 1 through stage 4 chronic kidney disease, or unspecified chronic kidney disease; Z68.45 Body mass index [BMI] 70 or greater, adult; J44.9 Chronic obstructive pulmonary disease, unspecified; R60.1 Generalized edema; Z66 Do not resuscitate
CPT/HCPCS: 36415; 71010; 80048; 80053; 80202; 81000; 82805; 82962; 83605; 83735; 83880; 84484; 85025; 85027; 87040; 87070; 87077; 87186; 87205; 93005; 93306; 94640; 94660; 94760; 96365

== ENCOUNTER 2018-11-25 12:25 | Inpatient (IN) | payer OTHER ==
[~2018-11-25] VITALS: Ht 177.8 cm; Wt 236.4 kg
[~2018-11-25 12:25] MED LIST changes: +FURO20TA4 PO; +FURO40TA4 PO; +GABA800T10 PO; -GEMF600T3 PO; +GEMF600T8 PO; -IPRA3AMP INH; +IPRA3AMP31 INH; +METF-399 PO; -METF1000 PO
--- OUTSIDE RECORDS SUMMARY | 2018-11-25 12:36 | XMS REPORT | CCD ---
Author Author Florence Treviño Organization Florence Treviño MD, [facility] Address [address] [place] [address] Phone Care Team Providers Care Manager Cash Name Role Phone PP Unavailable CCM Unavailable Summary Purpose Interface Exchange Insurance Providers Payer name Policy type / Coverage type Covered alliance party ID Effective Begin Date Effective End Date [facility] [id number] 2015 Unknown Family history Father Diagnosis Age At Onset Cancer Unknown Mother Diagnosis Age At Onset Heart Attack Unknown Diabetes mellitus Type 2 Unknown Daughter Diagnosis Age At Onset Myocardial infarction Unknown Sister Diagnosis Age At Onset Asthma Unknown Social History Social History Element Codes Description Effective Dates Marital status Unknown sheri 10/24/2014 Number of children Unknown 2 10/24/2014 Employment Unknown Retired disabled 10/24/[address]: 8758014 Former smoker quit 1993 10/24/2014 Allergies, Adverse Reactions, Alerts Substance Reaction Codes Entered Date Inactivated Date Status * NO KNOWN FOOD ALLERGIES Unknown 10/24/2014 No Inactive Date Active ASPIRIN (TARTRAZINE ONLY) Unknown 10/24/2014 No Inactive Date Active Past Medical History Illness Codes Condition Status Onset Date Resolved Date Encounter for screening for malignant neoplasm of prostate ICD-9: V76.44 ICD-10: Z12.5 Active 11/15/2018 Unknown Essential (primary) hypertension ICD-9: 401.9 ICD-10: I10 Active 10/23/2014 Unknown Hypothyroidism, unspecified ICD-9: 244.9 ICD-10: E03.9 Active 09/08/2018 Unknown Type 2 diabetes mellitus with diabetic polyneuropathy ICD-9: 250.60 ICD-10: E11.42 Active 11/04/2015 Unknown Hypothryroidism Unknown Active 09/08/2018 Unknown Dysuria ICD-9: 788.1 ICD-10: R30.0 Active 02/21/2016 Unknown Bilateral primary osteoarthritis of knee ICD-9: 715.96 ICD-10: M17.0 Active 10/23/2014 Unknown Heart failure, unspecified ICD-9: 428.0 ICD-10: I50.9 Active 11/04/2015 Unknown Panniculitis, unspecified ICD-9: 729.30 ICD-10: M79.3 Active 11/04/2015 Unknown Encounter for follow-up examination after completed treatment for conditions other than malignant neoplasm ICD-9: V67.9 ICD-10: Z09 Active 09/26/2015 Unknown Chronic pain syndrome ICD- 9: 338.4 ICD-10: G89.4 Active 07/04/2015 Unknown Pain in left knee ICD-9: 719.46 ICD-10: M25.562 Active 03/11/2015 Unknown Diabetes Unknown Active 10/24/2014 Unknown Hypertension Unknown Active 10/24/2014 Unknown ACUTE SINUSITIS ICD-9: 461.9 Active 10/23/2014 Unknown Diabetes mellitus ICD-9: 250.00 Active 10/23/2014 Unknown Double vision ICD-9: 368.2 Active 10/23/2014 Unknown ESSENTIAL HYPERTENSION ICD-9: 401.9 Active 10/23/2014 Unknown Osteoarthritis of knees, bilateral ICD-9: 715.96 Active 10/23/2014 Unknown Problems Condition Codes Effective Dates Condition Status Encounter for screening for malignant neoplasm of prostate ICD-9: V76.44 ICD-10: Z12.5 11/15/2018 Active Essential (primary) hypertension ICD-9: 401.9 ICD-10: I10 10/23/2014 Active Hypothyroidism, unspecified ICD-9: 244.9 ICD-10: E03.9 09/08/2018 Active Type 2 diabetes mellitus with diabetic polyneuropathy ICD-9: 250.60 ICD-10: E11.42 11/04/2015 Active Hypothryroidism Unknown 09/08/2018 Active Dysuria ICD-9: 788.1 ICD-10: R30.0 02/21/2016 Active Bilateral primary osteoarthritis of knee ICD-9: 715.96 ICD-10: M17.0 10/23/2014 Active Heart failure, unspecified ICD-9: 428.0 ICD-10: I50.9 11/04/2015 Active Panniculitis, unspecified ICD-9: 729.30 ICD-10: M79.3 11/04/2015 Active Encounter for follow-up examination after completed treatment for conditions other than malignant neoplasm ICD-9: V67.9 ICD-10: Z09 09/26/2015 Active Chronic pain syndrome ICD- 9: 338.4 ICD-10: G89.4 07/04/2015 Active Pain in left knee ICD-9: 719.46 ICD-10: M25.562 03/11/2015 Active Diabetes Unknown 10/24/2014 Active Hypertension Unknown 10/24/2014 Active ACUTE SINUSITIS ICD-9: 461.9 10/23/2014 Active Diabetes mellitus ICD-9: 250.00 10/23/2014 Active Double vision ICD-9: 368.2 10/23/2014 Active ESSENTIAL HYPERTENSION ICD-9: 401.9 10/23/2014 Active Osteoarthritis of knees, bilateral ICD-9: 715.96 10/23/2014 Active Medications Medication Codes Instructions Start Date Stop Date Status Fill Instructions nystatin 100,000 unit/gram topical powder RxNorm: 150975 APPLY ONE GRAM TOPICALLY FOUR TIMES A DAY NEEDED 11/22/2018 11/30/2018 Active Keflex 500 mg capsule RxNorm: 716084 1 Capsule(s) PO TID 11/05/2018 11/21/2018 Inactive Take probiotic while on antibiotic hydrocodone 10 mg-acetaminophen 325 mg tablet RxNorm: 751867 2 Tablet(s) PO Q6 PRN 10/19/2018 11/09/2018 Inactive levothyroxine 50 mcg tablet RxNorm: 1 Tablet(s) PO daily 09/21/2018 01/18/2019 Active hydrocodone 10 mg-acetaminophen 325 mg tablet RxNorm: 419273 2 Tablet(s) PO Q6 PRN 09/07/2018 09/28/2018 Inactive hydrocodone 10 mg-acetaminophen 325 mg tablet RxNorm: 114904 2 Tablet(s) PO Q6 PRN 07/05/2018 07/26/2018 Inactive mupirocin 2 % topical ointment RxNorm: 594688 APPLY TO AFFECTED AREA(S) TWO TIMES A DAY 07/05/2018 07/26/2018 Inactive levothyroxine 25 mcg tablet RxNorm: 478775 1 Tablet(s) PO daily 06/03/2018 09/20/2018 Inactive levothyroxine 25 mcg tablet RxNorm: 686467 1 Tablet(s) PO daily 06/03/2018 06/02/2018 Inactive hydrocodone 10 mg-acetaminophen 325 mg tablet RxNorm: 709748 2 Tablet(s) PO Q6 PRN 05/25/2018 06/15/2018 Inactive hydrocodone 10 mg-acetaminophen 325 mg tablet RxNorm: 168968 2 Tablet(s) PO Q6 PRN 04/13/2018 05/04/2018 Inactive hydrocodone 10 mg-acetaminophen 325 mg tablet RxNorm: 600986 2 Tablet(s) PO Q6 PRN 03/12/2018 04/02/2018 Inactive potassium chloride ER 10 mEq tablet,extended release RxNorm: 736067 TAKE ONE TABLET BY MOUTH FOUR TIMES A WEEK NEEDED 02/24/2018 07/13/2018 Inactive Neurontin 800 mg tablet RxNorm: 306364 TAKE ONE TABLET BY MOUTH THREE TIMES A DAY 02/09/2018 05/09/2018 Inactive nystatin 100,000 unit/gram topical powder RxNorm: 232728 APPLY ONE GRAM TOPICALLY FOUR TIMES A DAY NEEDED 02/03/2018 02/14/2018 Inactive hydrocodone 10 mg-acetaminophen 325 mg tablet RxNorm: 343110 2 Tablet(s) PO Q6 PRN 01/26/2018 02/16/2018 Inactive Novolin 70/30 U-100 Insulin 100 unit/mL subcutaneous suspension RxNorm: 502148 INJECT 100 UNITS UNDER THE SKIN TWO TIMES A DAY 01/04/2018 05/03/2018 Inactive mupirocin 2 % topical ointment RxNorm: 299698 1 Gram(s) TOP BID to affected area 12/29/2017 07/04/2018 Inactive Levaquin 500 mg tablet RxNorm: 677277 1 Tablet(s) PO daily 12/29/2017 01/04/2018 Inactive mupirocin 2 % topical ointment RxNorm: 420955 1 Gram(s) TOP BID to affected area 12/28/2017 12/28/2017 Inactive Levaquin 500 mg tablet RxNorm: 837962 1 Tablet(s) PO daily 12/28/2017 12/28/2017 Inactive hydrocodone 10 mg-acetaminophen 325 mg tablet RxNorm: 034506 2 Tablet(s) PO Q6 PRN 12/28/2017 01/18/2018 Inactive Novolin 70/30 U-100 Insulin 100 unit/mL subcutaneous suspension RxNorm: 371795 INJECT 100 UNITS UNDER THE SKIN TWO TIMES A DAY 11/24/2017 12/13/2017 Inactive hydrocodone 10 mg-acetaminophen 325 mg tablet RxNorm: 314178 2 Tablet(s) PO Q6 PRN 11/02/2017 11/23/2017 Inactive nystatin 100,000 unit/gram topical powder RxNorm: 712938 APPLY ONE GRAM TOPICALLY FOUR TIMES A DAY NEEDED 10/22/2017 11/02/2017 Inactive hydrocodone 10 mg-acetaminophen 325 mg tablet RxNorm: 469700 2 Tablet(s) PO Q6 PRN 09/21/2017 10/12/2017 Inactive Levaquin 500 mg tablet RxNorm: 603645 1 Tablet(s) PO daily 09/04/2017 09/03/2017 Inactive Levaquin 500 mg tablet RxNorm: 482984 1 Tablet(s) PO daily 09/04/2017 09/10/2017 Inactive Keflex 500 mg capsule RxNorm: 866654 1 Capsule(s) PO daily 08/19/2017 08/18/2017 Inactive Take probiotic while on antibiotic hydrocodone 10 mg-acetaminophen 325 mg tablet RxNorm: 339184 2 Tablet(s) PO Q6 PRN 08/19/2017 09/09/2017 Inactive Keflex 500 mg capsule RxNorm: 322479 1 Capsule(s) PO QID 08/19/2017 12/27/2017 Inactive Take probiotic while on antibiotic mupirocin 2 % topical ointment RxNorm: 905683 1 Gram(s) TOP BID to affected area 08/19/2017 12/27/2017 Inactive hydrocodone 10 mg-acetaminophen 325 mg tablet RxNorm: 829609 2 Tablet(s) PO Q6 PRN 07/20/2017 08/10/2017 Inactive hydrocodone 10 mg-acetaminophen 325 mg tablet RxNorm: 764910 2 Tablet(s) PO Q6 PRN 06/12/2017 07/03/2017 Inactive ipratropium-albuterol 0.5 mg-3 mg(2.5 mg base)/3 mL nebulization soln RxNorm: 5547164 INHALE ONE VIAL VIA NEBULIZER EVERY 4 HOURS NEEDED FOR SHORTNESS OF BREATH 06/03/2017 No Stop Date Active hydrocodone 10 mg-acetaminophen 325 mg tablet RxNorm: 007847 2 Tablet(s) PO Q6 PRN 05/13/2017 06/03/2017 Inactive Lasix 80 mg tablet RxNorm: 502805 Tablet(s) TAKE ONE TABLET BY MOUTH DAILY 05/06/2017 11/01/2017 Inactive hydrocodone 10 mg-acetaminophen 325 mg tablet RxNorm: 120765 2 Tablet(s) PO Q6 PRN 04/13/2017 05/04/2017 Inactive hydrocodone 10 mg-acetaminophen 325 mg tablet RxNorm: 748731 2 Tablet(s) PO Q6 PRN 03/02/2017 03/23/2017 Inactive potassium chloride ER 10 mEq tablet,extended release RxNorm: 107067 TAKE ONE TABLET BY MOUTH FOUR TIMES A WEEK NEEDED 02/09/2017 03/22/2017 Inactive potassium chloride ER 10 mEq tablet,extended release RxNorm: 572740 TAKE ONE TABLET BY MOUTH FOUR TIMES A WEEK NEEDED 02/09/2017 02/08/2017 Inactive Neurontin 800 mg tablet RxNorm: 280468 TAKE ONE TABLET BY MOUTH THREE TIMES A DAY 01/20/2017 05/19/2017 Inactive hydrocodone 10 mg-acetaminophen 325 mg tablet RxNorm: 032282 2 Tablet(s) PO Q6 PRN 01/12/2017 02/02/2017 Inactive Lasix 80 mg tablet RxNorm: 572355 Tablet(s) TAKE ONE TABLET BY MOUTH DAILY 01/12/2017 03/12/2017 Inactive Novolin 70/30 U-100 Insulin 100 unit/mL subcutaneous suspension RxNorm: 494471 INJECT 100 UNITS UNDER THE SKIN TWO TIMES A DAY 01/09/2017 02/17/2017 Inactive Please contact prescriber by phone/fax. 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 to Implementation Engineer unable to process Rejection Gmrs=[id number] Rejection htbyay=[id number] FAX FAILED: No local dialtone; too many attempts to dial Lasix 80 mg tablet RxNorm: 541165 Tablet(s) TAKE ONE TABLET BY MOUTH DAILY 01/06/2017 01/11/2017 Inactive hydrocodone 10 mg-acetaminophen 325 mg tablet RxNorm: 636934 2 Tablet(s) PO Q6 PRN 11/25/2016 12/16/2016 Inactive nystatin 100,000 unit/gram topical powder RxNorm: 256572 1 Gram(s) TOP QID as needed 11/25/2016 10/21/2017 Inactive hydrocodone 10 mg-acetaminophen 325 mg tablet RxNorm: 594249 2 Tablet(s) PO Q6 PRN 10/30/2016 11/20/2016 Inactive hydrocodone 10 mg-acetaminophen 325 mg tablet RxNorm: 492331 2 Tablet(s) PO Q6 PRN 10/01/2016 10/22/2016 Inactive hydrocodone 10 mg-acetaminophen 325 mg tablet RxNorm: 019563 2 Tablet(s) PO Q6 PRN 09/01/2016 09/22/2016 Inactive Novolin 70/30 100 unit/mL subcutaneous suspension RxNorm: 516172 INJECT 100 UNITS UNDER THE SKIN TWO TIMES A DAY 08/21/2016 09/04/2016 Inactive hydrocodone 10 mg-acetaminophen 325 mg tablet RxNorm: 473869 2 Tablet(s) PO Q6 PRN 07/29/2016 08/19/2016 Inactive hydrocodone 10 mg-acetaminophen 325 mg tablet RxNorm: 780010 2 Tablet(s) PO Q6 PRN 06/30/2016 07/21/2016 Inactive Neurontin 800 mg tablet RxNorm: 267779 1 Tablet(s) PO TID 06/23/2016 12/19/2016 Inactive glyburide 5 mg tablet RxNorm: 489744 TAKE ONE TABLET BY MOUTH TWICE A DAY 06/12/2016 09/09/2016 Inactive hydrocodone 10 mg-acetaminophen 325 mg tablet RxNorm: 445390 2 Tablet(s) PO Q6 PRN 05/16/2016 06/06/2016 Inactive morphine ER 15 mg tablet,extended release RxNorm: 644595 1 Tablet(s) 15mg IR PO BID as needed 05/13/2016 06/11/2016 Inactive nystatin 100,000 unit/gram topical powder RxNorm: 119265 1 Gram(s) TOP QID as needed 05/13/2016 11/24/2016 Inactive gemfibrozil 600 mg tablet RxNorm: 793771 TAKE ONE TABLET BY MOUTH TWICE A DAY 05/05/2016 10/31/2016 Inactive hydrocodone 10 mg-acetaminophen 325 mg tablet RxNorm: 065476 2 Tablet(s) PO Q6 PRN 04/18/2016 05/09/2016 Inactive Keflex 500 mg capsule RxNorm: 021889 1 Capsule(s) PO TID 04/15/2016 06/22/2016 Inactive Keflex 500 mg capsule RxNorm: 286943 1 Capsule(s) PO TID 04/15/2016 04/14/2016 Inactive hydrocodone 10 mg-acetaminophen 325 mg tablet RxNorm: 174000 2 Tablet(s) PO Q6 PRN 03/19/2016 04/17/2016 Inactive captopril 100 mg tablet RxNorm: 120215 TAKE ONE TABLET BY MOUTH TWICE A DAY 03/03/2016 06/30/2016 Inactive gemfibrozil 600 mg tablet RxNorm: 802938 TAKE ONE TABLET BY MOUTH TWICE A DAY 03/03/2016 05/01/2016 Inactive hydrocodone 10 mg-acetaminophen 325 mg tablet RxNorm: 239380 2 Tablet(s) PO Q6 PRN 02/28/2016 03/18/2016 Inactive Cipro 500 mg tablet RxNorm: 808061 1 Tablet(s) PO BID 02/21/2016 02/27/2016 Inactive [SAVINGS FOR NON-COVERED DRUGS -- BIN:[id number], PCN: [id number], Group: XXXXX, ID# [id number], Questions: . THIS IS NOT INSURANCE.] hydrocodone 10 mg-acetaminophen 325 mg tablet RxNorm: 854633 2 Tablet(s) PO Q6 PRN 02/01/2016 02/27/2016 Inactive hydrocodone 10 mg-acetaminophen 325 mg tablet RxNorm: 499362 2 Tablet(s) PO Q6 PRN 01/08/2016 01/31/2016 Inactive Lasix 80 mg tablet RxNorm: 535688 TAKE ONE TABLET BY MOUTH DAILY 12/18/2015 01/16/2016 Inactive Request already responded to by other means (e.g. phone or fax) gemfibrozil 600 mg tablet RxNorm: 497038 TAKE ONE TABLET BY MOUTH TWICE A DAY 12/18/2015 03/02/2016 Inactive Request already responded to by other means (e.g. phone or fax) glyburide 5 mg tablet RxNorm: 100245 TAKE ONE TABLET BY MOUTH TWICE A DAY 12/18/2015 01/16/2016 Inactive Request already responded to by other means (e.g. phone or fax) glyburide 5 mg tablet RxNorm: 085987 TAKE ONE TABLET BY MOUTH TWICE A DAY 12/14/2015 02/11/2016 Inactive gemfibrozil 600 mg tablet RxNorm: 292192 TAKE ONE TABLET BY MOUTH TWICE A DAY 12/14/2015 03/12/2016 Inactive potassium chloride ER 10 mEq tablet,extended release RxNorm: 576702 TAKE ONE TABLET BY MOUTH DAILY 12/14/2015 02/23/2018 Inactive potassium chloride ER 10 mEq tablet,extended release RxNorm: 617611 TAKE ONE TABLET BY MOUTH DAILY 12/14/2015 01/12/2016 Inactive Lasix 80 mg tablet RxNorm: 604805 TAKE ONE TABLET BY MOUTH DAILY 12/14/2015 02/11/2016 Inactive Neurontin 800 mg tablet RxNorm: 606275 1 Tablet(s) PO TID 12/10/2015 06/06/2016 Inactive morphine ER 15 mg tablet,extended release RxNorm: 165265 1 Tablet(s) 15mg IR PO BID as needed 12/03/2015 01/01/2016 Inactive Neurontin 800 mg tablet RxNorm: 682986 1 Tablet(s) PO TID 11/05/2015 12/09/2015 Inactive hydrocodone 10 mg-acetaminophen 325 mg tablet RxNorm: 567358 2 Tablet(s) PO Q6 PRN 10/23/2015 01/07/2016 Inactive hydrocodone 10 mg-acetaminophen 325 mg tablet RxNorm: 871754 2 Tablet(s) PO Q6 PRN 10/02/2015 10/22/2015 Inactive Neurontin 800 mg tablet RxNorm: 977633 1 Tablet(s) PO TID 09/27/2015 11/04/2015 Inactive Diflucan 150 mg tablet RxNorm: 235184 1 Tablet(s) PO daily 09/06/2015 09/05/2015 Inactive Keflex 500 mg capsule RxNorm: 340676 1 Capsule(s) PO TID 09/06/2015 12/09/2015 Inactive Diflucan 150 mg tablet RxNorm: 273756 1 Tablet(s) PO daily 09/06/2015 12/09/2015 Inactive Keflex 500 mg capsule RxNorm: 215729 1 Capsule(s) PO TID 09/06/2015 09/05/2015 Inactive Novolin 70/30 100 unit/mL subcutaneous suspension RxNorm: 278132 INJECT 100 UNITS UNDER THE SKIN TWO TIMES A DAY 08/20/2015 11/07/2015 Inactive morphine ER 15 mg tablet,extended release RxNorm: 443431 1 Tablet(s) 15mg IR PO BID as needed 08/08/2015 11/04/2015 Inactive Novolin 70/30 100 unit/mL subcutaneous suspension RxNorm: 899152 100 Unit(s) SQ BID 07/10/2015 08/08/2015 Inactive Novolin 70/30 100 unit/mL subcutaneous solution RxNorm: 734783 100 Unit(s) SQ BID 07/10/2015 07/09/2015 Inactive Mobic 15 mg tablet RxNorm: 153329 1 Tablet(s) PO daily 07/05/2015 12/31/2015 Inactive captopril 100 mg tablet RxNorm: 140485 1 Tablet(s) PO BID 07/05/2015 12/31/2015 Inactive Lopid 600 mg tablet RxNorm: 065419 1 Tablet(s) PO BID 07/05/2015 No Stop Date Active hydrocodone 10 mg-acetaminophen 325 mg tablet RxNorm: 496002 2 Tablet(s) PO Q6 PRN 07/05/2015 10/01/2015 Inactive Neurontin 800 mg tablet RxNorm: 135612 1 Tablet(s) PO TID 07/05/2015 09/26/2015 Inactive Humulin 70/30 100 unit/mL subcutaneous suspension RxNorm: 665232 100 100 Unit(s) SQ BID 07/05/2015 07/09/2015 Inactive may dispense 30 or 90 day supply Lyrica 75 mg capsule RxNorm: 457505 1 Capsule(s) PO BID 07/05/2015 07/04/2015 Inactive glyburide 5 mg tablet RxNorm: 225140 1 Tablet(s) PO BID 07/05/2015 12/13/2015 Inactive potassium chloride ER 10 mEq tablet,extended release RxNorm: 674158 1 Tablet(s) PO daily 07/05/2015 12/13/2015 Inactive Lasix 80 mg tablet RxNorm: 319528 1 Tablet(s) PO daily 07/05/2015 12/13/2015 Inactive Lyrica 75 mg capsule RxNorm: 196145 1 Capsule(s) PO BID 07/05/2015 11/04/2015 Inactive morphine ER 15 mg tablet,extended release RxNorm: 793361 1 Tablet(s) 15mg IR PO BID as needed 07/05/2015 08/03/2015 Inactive morphine 15 mg capsule RxNorm: 760925 1 Capsule(s) 15mg IR PO BID as needed 06/25/2015 07/04/2015 Inactive morphine 15 mg capsule RxNorm: 349149 1 Capsule(s) 15mg IR PO BID as needed 05/24/2015 06/22/2015 Inactive morphine 15 mg capsule RxNorm: 404919 1 Capsule(s) 15mg IR PO BID as needed 04/16/2015 05/14/2015 Inactive gemfibrozil 600 mg tablet RxNorm: 366660 1 Tablet(s) PO BID 04/11/2015 07/05/2015 Inactive Glucophage 1,000 mg tablet RxNorm: 605933 1 Tablet(s) PO BID 03/12/2015 03/05/2016 Inactive captopril 100 mg tablet RxNorm: 873803 1 Tablet(s) PO BID 03/12/2015 07/04/2015 Inactive potassium chloride ER 10 mEq tablet,extended release RxNorm: 906329 1 Tablet(s) PO daily 03/12/2015 07/04/2015 Inactive glyburide 5 mg tablet RxNorm: 913433 1 Tablet(s) PO BID 03/12/2015 07/04/2015 Inactive Mobic 15 mg tablet RxNorm: 438532 1 Tablet(s) PO daily 03/12/2015 07/04/2015 Inactive morphine 15 mg capsule RxNorm: 876054 1 Capsule(s) 15mg IR PO BID as needed 03/12/2015 04/10/2015 Inactive hydrocodone 10 mg-acetaminophen 325 mg tablet RxNorm: 571900 2 Tablet(s) PO Q6 PRN 03/12/2015 07/04/2015 Inactive Neurontin 800 mg tablet RxNorm: 457718 1 Tablet(s) PO TID 03/12/2015 06/09/2015 Inactive morphine 15 mg capsule RxNorm: 598528 1 Capsule(s) 15mg IR PO BID as needed 02/09/2015 03/10/2015 Inactive Glucophage 1,000 mg tablet RxNorm: 656980 1 Tablet(s) PO BID 01/31/2015 03/11/2015 Inactive Glucophage 1,000 mg tablet RxNorm: 919300 1 Tablet(s) PO BID 01/15/2015 01/30/2015 Inactive morphine 15 mg capsule RxNorm: 216683 1 Capsule(s) 15mg IR PO BID as needed 01/11/2015 02/08/2015 Inactive hydrocodone 10 mg-acetaminophen 325 mg tablet RxNorm: 974249 2 Tablet(s) PO Q6 PRN 01/11/2015 03/11/2015 Inactive morphine 15 mg capsule RxNorm: 740973 1 Capsule(s) 15mg IR PO BID as needed 12/13/2014 01/10/2015 Inactive morphine 15 mg capsule RxNorm: 882337 1 Capsule(s) PO BID as needed 12/08/2014 12/07/2014 Inactive morphine 15 mg capsule RxNorm: 987941 1 Capsule(s) PO BID as needed 12/08/2014 12/12/2014 Inactive hydrocodone 10 mg-acetaminophen 325 mg tablet RxNorm: 771128 2 Tablet(s) PO Q6 PRN 10/27/2014 01/10/2015 Inactive clindamycin 150 mg capsule RxNorm: 842107 1 Capsule(s) PO QID 10/24/2014 11/02/2014 Inactive hydrocodone 10 mg-acetaminophen 325 mg tablet RxNorm: 310075 1 Tablet(s) PO Q6 PRN 10/24/2014 10/26/2014 Inactive Cipro 500 mg tablet RxNorm: 509991 1 Tablet(s) PO BID 09/08/2014 09/17/2014 Inactive [SAVINGS FOR NON-COVERED DRUGS -- BIN:[id number], PCN: ASPROD1, Group: XXXXX, ID# [id number], Questions: . THIS IS NOT INSURANCE.] Flagyl 500 mg tablet RxNorm: 697632 1 Tablet(s) PO TID 09/08/2014 09/17/2014 Inactive [SAVINGS FOR NON-COVERED DRUGS -- BIN:[id number], PCN: ASPROD1, Group: XXXXX, ID# [id number], Questions: . THIS IS NOT INSURANCE.] Flagyl 500 mg tablet RxNorm: 056562 1 Tablet(s) PO TID 09/08/2014 09/07/2014 Inactive Cipro 500 mg tablet RxNorm: 146580 1 Tablet(s) PO BID 09/08/2014 09/07/2014 Inactive Promethazine VC-Codeine 6.25 mg-5 mg-10 mg/5 mL syrup RxNorm: 414383 to 10 Milliliter(s) PO Q6 No Start Date Active multivitamin oral RxNorm: 82966 oral No Start Date Active Fish Oil capsule RxNorm: Capsule(s) PO 1200 mg No Start Date Active melatonin 5 mg tablet RxNorm: 601724 2 Tablet(s) PO QHS No Start Date Active vitamin E 1,000 unit tablet RxNorm: 633718 oral No Start Date Active Calcium 600 + D(3) oral RxNorm: 179362 oral No Start Date Active Multiple Vitamins Daily oral RxNorm: 72004 oral No Start Date Active oxycodone 10 mg tablet RxNorm: 1210626 1 Tablet(s) PO Q6 PRN No Start Date Active Lopid 600 mg tablet RxNorm: 226812 1 Tablet(s) PO BID No Start Date 04/10/2015 Inactive vitamin [id number] B1 intramuscular RxNorm: 14346 intramuscular No Start Date 11/04/2015 Inactive Mobic 15 mg tablet RxNorm: 623526 1 Tablet(s) PO daily No Start Date 03/11/2015 Inactive Vitamin D3 2,000 unit capsule RxNorm: 523836 1 Capsule(s) PO daily No Start Date 11/04/2015 Inactive Vitamin C 1,000 mg tablet RxNorm: 190047 1 Tablet(s) PO daily No Start Date 11/04/2015 Inactive captopril 100 mg tablet RxNorm: 096465 1 Tablet(s) PO BID No Start Date 03/11/2015 Inactive nystatin 100,000 unit/gram topical powder RxNorm: 391991 1 Gram(s) TOP QID as needed No Start Date 05/12/2016 Inactive Neurontin 800 mg tablet RxNorm: 787308 1 Tablet(s) PO TID No Start Date 03/11/2015 Inactive mupirocin 2 % topical ointment RxNorm: 497339 1 Gram(s) TOP BID to affected area No Start Date 08/18/2017 Inactive KCL 20 meq RxNorm: 1 Tablet(s) PO daily No Start Date 03/11/2015 Inactive Lasix 80 mg tablet RxNorm: 081654 1 Tablet(s) PO daily No Start Date 07/04/2015 Inactive ipratropium-albuterol 0.5 mg-3 mg(2.5 mg base)/3 mL nebulization soln RxNorm: 9921725 INHALE ONE VIAL VIA NEBULIZER EVERY 4 HOURS NEEDED FOR SHORTNESS OF BREATH No Start Date 06/02/2017 Inactive Lyrica 75 mg capsule RxNorm: 791694 1 Capsule(s) PO BID No Start Date 07/04/2015 Inactive glyburide 5 mg tablet RxNorm: 343528 1 Tablet(s) PO BID No Start Date 03/11/2015 Inactive hydrocodone 10 mg-acetaminophen 325 mg tablet RxNorm: 684756 1 Tablet(s) PO Q6 PRN No Start Date 10/23/2014 Inactive Glucophage 1,000 mg tablet RxNorm: 658608 2 Tablet(s) PO daily No Start Date 01/14/2015 Inactive Humulin 70/30 100 unit/mL subcutaneous suspension RxNorm: 759183 100 Unit(s) SQ BID No Start Date 07/04/2015 Inactive Medication Administered No Medication Administered data Immunizations No Immunization data Assessments Condition Codes Effective Dates Encounter for screening for malignant neoplasm of prostate ICD- 10: Z12.5 ICD-9: V76.44 11/15/2018 Hypothyroidism, unspecified ICD-10: E03.9 ICD-9: 244.9 11/15/2018 Type 2 diabetes mellitus with diabetic polyneuropathy ICD-10: E11.42 ICD-9: 250.60 11/15/2018 Essential (primary) hypertension ICD-10: I10 ICD-9: 401.9 11/15/2018 Dysuria ICD-10: R30.0 ICD-9: 788.1 02/22/2016 Bilateral primary osteoarthritis of knee ICD-10: M17.0 ICD-9: 715.96 11/05/2015 Panniculitis, unspecified ICD-10: M79.3 ICD-9: 729.30 11/05/2015 Heart failure, unspecified ICD-10: I50.9 ICD-9: 428.0 11/05/2015 Encounter for follow-up examination after completed treatment for conditions other than malignant neoplasm ICD-10: Z09 ICD-9: V67.9 09/27/2015 Chronic pain syndrome ICD-10: G89.4 ICD-9: 338.4 07/05/2015 Pain in left knee ICD-10: M25.562 ICD-9: 719.46 03/12/2015 ACUTE SINUSITIS ICD-9: 461.9 10/24/2014 ESSENTIAL HYPERTENSION ICD-9: 401.9 10/24/2014 Diabetes mellitus ICD-9: 250.00 10/24/2014 Double vision ICD-9: 368.2 10/24/2014 Osteoarthritis of knees, bilateral ICD-9: 715.96 10/24/2014 Reason For Visit Reason For Visit Effective Dates Notes Hospital Follow Up 11/05/2015 Hospital Follow Up 09/27/2015 pain 07/05/2015 pain 03/12/2015 vision change 10/24/2014 Results Observation Observation Code Item Item Code Result Date %Hba1C [id number] % HbA1c 87723- 6 7.3 % 07/05/2015 %Hba1C [id number] Gluc Ave 163 mg/dL 07/05/2015 Cbc With Differential Ord2 WBC 8.10 K/ul 07/05/2015 Cbc With Differential Ord2 RBC 4.36 M/ul 07/05/2015 Cbc With Differential Ord2 HGB 13.3 g/dl 07/05/2015 Cbc With Differential Ord2 HCT 40.8 % 07/05/2015 Cbc With Differential Ord2 Neut% 66.8 % 07/05/2015 Cbc With Differential Ord2 MCV 93.6 fl 07/05/2015 Cbc With Differential Ord2 Lymph% 20.4 % 07/05/2015 Cbc With Differential Ord2 MCH 30.5 pg 07/05/2015 Cbc With Differential Ord2 [place]% 8.1 % 07/05/2015 Cbc With Differential Ord2 MCHC 32.6 pg 07/05/2015 Cbc With Differential Ord2 Eos% 4.3 % 07/05/2015 Cbc With Differential Ord2 PLT 212 K/ul 07/05/2015 Cbc With Differential Ord2 Baso% 0.4 % 07/05/2015 Cbc With Differential Ord2 RDW 13.1 % 07/05/2015 Cbc With Differential Ord2 Neut ABS# 5.41 K/ul 07/05/2015 Cbc With Differential Ord2 Lymph ABS# 1.65 K/ul 07/05/2015 Cbc With Differential Ord2 C[place]shaw ABS# 0.7 K/ul 07/05/2015 Cbc With Differential Ord2 Eos ABS# 0.4 K/ul 07/05/2015 Cbc With Differential Ord2 Baso ABS# 0.0 K/ul 07/05/2015 Cbc With Differential Ord2 New Analyzer Notice Please note new ref ranges starting 05-30-2015 due to implemntation of new five part differential hematolgy analyzer. 07/05/2015 Tsh Ord6 hTSH II 1.45 uIU/mL 07/05/2015 Total Psa Ord10 PSA 0.14 ng/mL 07/05/2015 Comp Metabolic Ukp186 NA 138 mEq/L 07/05/2015 Comp Metabolic Moc850 K 4.7 mEq/L 07/05/2015 Comp Metabolic Rtc421 CL 101 mEq/L 07/05/2015 Comp Metabolic Sww152 CO2 27.0 mEq/L 07/05/2015 Comp Metabolic Iyw745 ANION GAP 15 07/05/2015 Comp Metabolic Jsz489 GLUCOSE 152 mg/dL 07/05/2015 Comp Metabolic Xsh781 Creat 0.8 mg/dL 07/05/2015 Comp Metabolic Ibz423 eGFR 106 ml/min/1.73m2 07/05/2015 Comp Metabolic Oin013 BUN 14 mg/dL 07/05/2015 Comp Metabolic Qsn048 B/C Ratio 17.7 Ratio 07/05/2015 Comp Metabolic Pci443 CALCIUM 9.4 mg/dL 07/05/2015 Comp Metabolic Gqj764 ALK PHOS 77 U/L 07/05/2015 Comp Metabolic Eyf855 AST(SGOT) 23 U/L 07/05/2015 Comp Metabolic Dll383 ALT(SGPT) 25 U/L 07/05/2015 Comp Metabolic Mft784 BILI T 0.6 mg/dL 07/05/2015 Comp Metabolic Ubp595 ALBUMIN 4.0 g/dL 07/05/2015 Comp Metabolic Jmv199 TPRO 6.5 g/dL 07/05/2015 Comp Metabolic Uqw737 GLOB 2.5 g/dL 07/05/2015 Comp Metabolic Zjo851 A/G Ratio 1.6 Ratio 07/05/2015 Comp Metabolic Bzj000 Osmo 279 mOsmo 07/05/2015 Cbc With Differential Ord2 WBC 7.3 K/uL 03/12/2015 Cbc With Differential Ord2 LYM 2.2 K/uL 03/12/2015 Cbc With Differential Ord2 LYM% 30.7 % 03/12/2015 Cbc With Differential Ord2 NEUT/GRAN 4.5 K/uL 03/12/2015 Cbc With Differential Ord2 NEUT/GRAN % 61.4 % 03/12/2015 Cbc With Differential Ord2 MID 0.6 K/uL 03/12/2015 Cbc With Differential Ord2 MID% 7.9 % 03/12/2015 Cbc With Differential Ord2 RBC 4.33 M/uL 03/12/2015 Cbc With Differential Ord2 HGB 13.3 g/dL 03/12/2015 Cbc With Differential Ord2 HCT 41.6 % 03/12/2015 Cbc With Differential Ord2 MCV 96 fL 03/12/2015 Cbc With Differential Ord2 MCH 31 pg 03/12/2015 Cbc With Differential Ord2 MCHC 32 g/dL 03/12/2015 Cbc With Differential Ord2 PLT 210 K/uL 03/12/2015 Cbc With Differential Ord2 RDW 13.3 % 03/12/2015 %Hba1C Jve801 % HbA1c 37625- 6 6.6 % 03/12/2015 %Hba1C Dfn643 Gluc Ave 143 mg/dL 03/12/2015 Comp Metabolic Jna330 NA 135 mEq/L 03/12/2015 Comp Metabolic Rsl753 K 4.7 mEq/L 03/12/2015 Comp Metabolic Xgx740 CL 98 mEq/L 03/12/2015 Comp Metabolic Buh372 CO2 27.0 mEq/L 03/12/2015 Comp Metabolic Kfa207 ANION GAP 15 03/12/2015 Comp Metabolic Nfh467 GLUCOSE 232 mg/dL 03/12/2015 Comp Metabolic Riw437 Creat 0.8 mg/dL 03/12/2015 Comp Metabolic Nvt024 eGFR 104 ml/min/1.73m2 03/12/2015 Comp Metabolic Kxy971 BUN 19 mg/dL 03/12/2015 Comp Metabolic Lqk509 B/C Ratio 23.8 Ratio 03/12/2015 Comp Metabolic Jfg864 CALCIUM 9.2 mg/dL 03/12/2015 Comp Metabolic Yvt204 ALK PHOS 74 U/L 03/12/2015 Comp Metabolic Jbh900 AST(SGOT) 24 U/L 03/12/2015 Comp Metabolic Hze142 ALT(SGPT) 29 U/L 03/12/2015 Comp Metabolic Juu136 BILI T 0.4 mg/dL 03/12/2015 Comp Metabolic Wcu819 ALBUMIN 4.2 g/dL 03/12/2015 Comp Metabolic Qah577 TPRO 6.5 g/dL 03/12/2015 Comp Metabolic Lkz518 GLOB 2.3 g/dL 03/12/2015 Comp Metabolic Vjb880 A/G Ratio 1.8 Ratio 03/12/2015 Comp Metabolic Vrs468 Osmo 280 mOsmo 03/12/2015 Review of Systems System Result Effective Dates Constitutional No recent illness 11/05/2015 Constitutional No anorexia 11/05/2015 Constitutional No night sweats 11/05/2015 Constitutional No chills 11/05/2015 Constitutional No diaphoresis 11/05/2015 Constitutional No fatigue 11/05/2015 Constitutional No fever 11/05/2015 Constitutional No insomnia 11/05/2015 Constitutional No malaise 11/05/2015 Constitutional No weight loss 11/05/2015 Constitutional No weight gain 11/05/2015 Constitutional No obesity 11/05/2015 Musculoskeletal joint complaint 11/05/2015 Musculoskeletal myalgias 11/05/2015 Gastrointestinal No abdominal pain 11/05/2015 Gastrointestinal No constipation 11/05/2015 Gastrointestinal No diarrhea 11/05/2015 Dermatologic No rash 11/05/2015 Dermatologic No sores 11/05/2015 Cardiovascular No chest pain/pressure 11/05/2015 Cardiovascular No dyspnea 11/05/2015 Respiratory dyspnea on exertion 11/05/2015 Respiratory No dyspnea 11/05/2015 Respiratory cough 11/05/2015 Respiratory No chest congestion 11/05/2015 Respiratory No chest tightness 11/05/2015 Respiratory No cigarette smoking 11/05/2015 Ears/Nose/Throat/Neck No nasal discharge 11/05/2015 Ears/Nose/Throat/Neck No nasal allergies 11/05/2015 Ears/Nose/Throat/Neck No headache 11/05/2015 Ears/Nose/Throat/Neck No otalgia 11/05/2015 Ears/Nose/Throat/Neck No otitis media 11/05/2015 Ears/Nose/Throat/Neck No sinus congestion 11/05/2015 Ears/Nose/Throat/Neck No sore throat 11/05/2015 Eyes No vision change 11/05/2015 Genitourinary/Nephrology No dysuria 11/05/2015 Psychiatric No depression 11/05/2015 Psychiatric No anxiety 11/05/2015 Constitutional recent illness 09/27/2015 Constitutional No chills 09/27/2015 Constitutional No diaphoresis 09/27/2015 Constitutional No fatigue 09/27/2015 Constitutional No fever 09/27/2015 Constitutional No insomnia 09/27/2015 Constitutional No malaise 09/27/2015 Eyes No eye discharge 09/27/2015 Eyes No eye erythema 09/27/2015 Ears/Nose/Throat/Neck No nasal allergies 09/27/2015 Ears/Nose/Throat/Neck No nasal discharge 09/27/2015 Cardiovascular No chest pain/pressure 09/27/2015 Cardiovascular No edema 09/27/2015 Respiratory No productive sputum 09/27/2015 Respiratory No chest congestion 09/27/2015 Respiratory dyspnea on exertion 09/27/2015 Gastrointestinal No abdominal pain 09/27/2015 Gastrointestinal No constipation 09/27/2015 Gastrointestinal No diarrhea 09/27/2015 Dermatologic No rash 09/27/2015 Neurologic No alteration of consciousness 09/27/2015 Constitutional obesity 09/27/2015 Neurologic No mental status change 09/27/2015 Constitutional No recent illness 07/05/2015 Constitutional No anorexia 07/05/2015 Constitutional No night sweats 07/05/2015 Constitutional No chills 07/05/2015 Constitutional No diaphoresis 07/05/2015 Constitutional No fatigue 07/05/2015 Constitutional No fever 07/05/2015 Constitutional No insomnia 07/05/2015 Constitutional No malaise 07/05/2015 Constitutional No weight loss 07/05/2015 Constitutional No weight gain 07/05/2015 Constitutional obesity 07/05/2015 Musculoskeletal joint complaint 07/05/2015 Neurologic No alteration of consciousness 07/05/2015 Gastrointestinal No diarrhea 07/05/2015 Gastrointestinal No constipation 07/05/2015 Gastrointestinal No abdominal pain 07/05/2015 Respiratory No productive sputum 07/05/2015 Respiratory No chest congestion 07/05/2015 Cardiovascular No chest pain/pressure 07/05/2015 Cardiovascular No edema 07/05/2015 Ears/Nose/Throat/Neck No nasal allergies 07/05/2015 Ears/Nose/Throat/Neck No nasal discharge 07/05/2015 Ears/Nose/Throat/Neck No headache 07/05/2015 Ears/Nose/Throat/Neck No dizziness 07/05/2015 Eyes No eye erythema 07/05/2015 Eyes No eye discharge 07/05/2015 Dermatologic No rash 07/05/2015 Respiratory dyspnea on exertion 07/05/2015 Musculoskeletal joint complaint 03/12/2015 Dermatologic No rash 03/12/2015 Constitutional No recent illness 03/12/2015 Constitutional No anorexia 03/12/2015 Constitutional No night sweats 03/12/2015 Constitutional No chills 03/12/2015 Constitutional No diaphoresis 03/12/2015 Constitutional No fatigue 03/12/2015 Constitutional No fever 03/12/2015 Constitutional No insomnia 03/12/2015 Constitutional No malaise 03/12/2015 Constitutional No weight loss 03/12/2015 Constitutional No weight gain 03/12/2015 Eyes No eye erythema 03/12/2015 Eyes No eye discharge 03/12/2015 Ears/Nose/Throat/Neck No dizziness 03/12/2015 Ears/Nose/Throat/Neck No headache 03/12/2015 Ears/Nose/Throat/Neck No nasal allergies 03/12/2015 Ears/Nose/Throat/Neck No nasal discharge 03/12/2015 Cardiovascular No chest pain/pressure 03/12/2015 Cardiovascular No dyspnea 03/12/2015 Cardiovascular No edema 03/12/2015 Respiratory No productive sputum 03/12/2015 Respiratory No chest congestion 03/12/2015 Respiratory cough 03/12/2015 Gastrointestinal No abdominal pain 03/12/2015 Gastrointestinal No constipation 03/12/2015 Gastrointestinal No diarrhea 03/12/2015 Genitourinary/Nephrology No dysuria 03/12/2015 Neurologic No alteration of consciousness 03/12/2015 Ears/Nose/Throat/Neck headache 10/24/2014 Ears/Nose/Throat/Neck nasal allergies 10/24/2014 Ears/Nose/Throat/Neck nasal discharge 10/24/2014 Ears/Nose/Throat/Neck No dizziness 10/24/2014 Ears/Nose/Throat/Neck No otalgia 10/24/2014 Eyes No eye discharge 10/24/2014 Eyes No eye erythema 10/24/2014 Eyes vision change 10/24/2014 Constitutional No recent illness 10/24/2014 Constitutional No fever 10/24/2014 Constitutional No fatigue 10/24/2014 Constitutional diaphoresis 10/24/2014 Constitutional No chills 10/24/2014 Constitutional No anorexia 10/24/2014 Constitutional No insomnia 10/24/2014 Constitutional No malaise 10/24/2014 Constitutional No weight loss 10/24/2014 Constitutional No weight gain 10/24/2014 Cardiovascular No chest pain/pressure 10/24/2014 Cardiovascular No dyspnea 10/24/2014 Cardiovascular edema 10/24/2014 Respiratory No productive sputum 10/24/2014 Respiratory No chest congestion 10/24/2014 Respiratory cough 10/24/2014 Gastrointestinal No abdominal pain 10/24/2014 Gastrointestinal No constipation 10/24/2014 Gastrointestinal No diarrhea 10/24/2014 Genitourinary/Nephrology No dysuria 10/24/2014 Musculoskeletal joint complaint 10/24/2014 Dermatologic No rash 10/24/2014 Neurologic headache 10/24/2014 Neurologic pain, generalized 10/24/2014 Psychiatric No anxiety 10/24/2014 Psychiatric No depression 10/24/2014 Endocrine No hair loss 10/24/2014 Hematologic/Lymphatic No abnormal bleeding and bruising 10/24/2014 Physical Exam Exam Name System Name Item Name Status Result Effective Dates Notes Full Exam - General 1994 Constitutional general appearance Development: well developed 11/05/2015 None Full Exam - General 1994 Constitutional general appearance Nourishment: obese 11/05/2015 None Full Exam - General 1994 Constitutional general appearance Assistive Device: wheelchair 11/05/2015 None Full Exam - General 1994 Eyes conjunctiva/eyelids Overall: conjunctiva clear 11/05/2015 None Full Exam - General 1994 Eyes conjunctiva/eyelids Overall: eyelids normal 11/05/2015 None Full Exam - General 1994 Eyes conjunctiva/eyelids Overall: cornea clear 11/05/2015 None Full Exam - General 1994 Eyes pupils and irises Overall: pupils equal, round, reactive to light and accomodation 11/05/2015 None Full Exam - General 1994 Ears/Nose/Throat lips/teeth/gingiva Overall: benign gingiva 11/05/2015 None Full Exam - General 1994 Ears/Nose/Throat lips/teeth/gingiva Overall: no masses 11/05/2015 None Full Exam - General 1994 Ears/Nose/Throat lips/teeth/gingiva Overall: normal dentition 11/05/2015 None Full Exam - General 1994 Ears/Nose/Throat lips/teeth/gingiva Overall: benign lips 11/05/2015 None Full Exam - General 1994 Ears/Nose/Throat oral cavity/pharynx/larynx Overall: oropharyngeal mucosa clear 11/05/2015 None Full Exam - General 1994 Ears/Nose/Throat oral cavity/pharynx/larynx Overall: no masses 11/05/2015 None Full Exam - General 1994 Ears/Nose/Throat oral cavity/pharynx/larynx Overall: oral mucosa clear 11/05/2015 None Full Exam - General 1994 Ears/Nose/Throat otoscopic exam Overall: tympanic membranes clear 11/05/2015 None Full Exam - General 1994 Ears/Nose/Throat otoscopic exam Overall: external auditory canals clear 11/05/2015 None Full Exam - General 1994 Respiratory auscultation Overall: breath sounds clear bilaterally 11/05/2015 None Full Exam - General 1994 Respiratory respiratory effort/rhythm Overall: normal rate 11/05/2015 None Full Exam - General 1994 Respiratory respiratory effort/rhythm Overall: no retractions 11/05/2015 None Full Exam - General 1994 Cardiovascular auscultation of heart Overall: regular rate 11/05/2015 None Full Exam - General 1994 Cardiovascular auscultation of heart Overall: normal heart sounds 11/05/2015 None Full Exam - General 1994 Cardiovascular auscultation of heart Overall: no murmurs 11/05/2015 None Full Exam - General 1994 Cardiovascular extremities Overall: no clubbing 11/05/2015 None Full Exam - General 1994 Abdomen abdominal exam Overall: normal bowel sounds 11/05/2015 None Full Exam - General 1994 Abdomen abdominal exam Contour: protuberant 11/05/2015 None Full Exam - General 1994 Abdomen abdominal exam Periumbilical: tender to palpation 11/05/2015 None Full Exam - General 1994 Abdomen abdominal exam Periumbilical: firm 11/05/2015 edema Full Exam - General 1994 Musculoskeletal gait and station Gait: abnormal stance 11/05/2015 None Full Exam - General 1994 Musculoskeletal gait and station Gait: unable to turn quickly 11/05/2015 None Full Exam - General 1994 Integument inspection of skin Location: abdomen 11/05/2015 panis Full Exam - General 1994 Integument inspection of skin Pigmentation: hyperpigmentation 11/05/2015 None Full Exam - General 1994 Integument inspection of skin Consistency: edema 11/05/2015 None Full Exam - General 1994 Integument inspection of skin Consistency: dry 11/05/2015 None Full Exam - General 1994 Psychiatric orientation/consciousness Overall: oriented to person, place and time 11/05/2015 None Full Exam - General 1994 Psychiatric mood and affect Overall: normal mood and affect 11/05/2015 None Full Exam - General 1994 Psychiatric appearance Overall: well-groomed, good eye contact 11/05/2015 None Full Exam - General 1994 Constitutional general appearance Overall: well developed 09/27/2015 None Full Exam - General 1994 Constitutional general appearance Overall: in no acute distress 09/27/2015 None Full Exam - General 1994 Constitutional general appearance Nourishment: obese 09/27/2015 None Full Exam - General 1994 Constitutional general appearance Evidence of Distress: in no acute distress 09/27/2015 None Full Exam - General 1994 Eyes conjunctiva/eyelids Overall: conjunctiva clear 09/27/2015 None Full Exam - General 1994 Ears/Nose/Throat otoscopic exam Overall: external auditory canals clear 09/27/2015 None Full Exam - General 1994 Ears/Nose/Throat otoscopic exam Overall: tympanic membranes clear 09/27/2015 None Full Exam - General 1994 Ears/Nose/Throat oral cavity/pharynx/larynx Overall: oral mucosa clear 09/27/2015 None Full Exam - General 1994 Respiratory auscultation Overall: breath sounds clear bilaterally 09/27/2015 None Full Exam - General 1994 Respiratory respiratory effort/rhythm Overall: no retractions 09/27/2015 None Full Exam - General 1994 Respiratory respiratory effort/rhythm Overall: normal rate 09/27/2015 None Full Exam - General 1994 Cardiovascular auscultation of heart Overall: regular rate 09/27/2015 None Full Exam - General 1994 Cardiovascular auscultation of heart Overall: normal heart sounds 09/27/2015 None Full Exam - General 1994 Abdomen abdominal exam Contour: protuberant 09/27/2015 None Full Exam - General 1994 Musculoskeletal gait and station Gait: asymmetric 09/27/2015 None Full Exam - General 1994 Neurologic cranial nerves Overall: crainial nerves 2 - 12 grossly intact 09/27/2015 None Full Exam - General 1994 Psychiatric orientation/consciousness Overall: oriented to person, place and time 09/27/2015 None Full Exam - General 1994 Ears/Nose/Throat oral cavity/pharynx/larynx Overall: oropharyngeal mucosa clear 09/27/2015 None Full Exam - General 1994 Ears/Nose/Throat oral cavity/pharynx/larynx Overall: no masses 09/27/2015 None Full Exam - General 1994 Ears/Nose/Throat lips/teeth/gingiva Overall: benign lips 09/27/2015 None Full Exam - General 1994 Psychiatric mood and affect Overall: normal mood and affect 09/27/2015 None Full Exam - General 1994 Constitutional general appearance Overall: well developed 07/05/2015 None Full Exam - General 1994 Constitutional general appearance Overall: in no acute distress 07/05/2015 None Full Exam - General 1994 Constitutional general appearance Nourishment: obese 07/05/2015 None Full Exam - General 1994 Constitutional general appearance Evidence of Distress: in no acute distress 07/05/2015 None Full Exam - General 1994 Eyes conjunctiva/eyelids Overall: conjunctiva clear 07/05/2015 None Full Exam - General 1994 Eyes pupils and irises Overall: pupils equal, round, reactive to light and accomodation 07/05/2015 None Full Exam - General 1994 Ears/Nose/Throat otoscopic exam Overall: external auditory canals clear 07/05/2015 None Full Exam - General 1994 Ears/Nose/Throat otoscopic exam Overall: tympanic membranes clear 07/05/2015 None Full Exam - General 1994 Ears/Nose/Throat oral cavity/pharynx/larynx Overall: oral mucosa clear 07/05/2015 None Full Exam - General 1994 Respiratory auscultation Overall: breath sounds clear bilaterally 07/05/2015 None Full Exam - General 1994 Respiratory respiratory effort/rhythm Overall: no retractions 07/05/2015 None Full Exam - General 1994 Respiratory respiratory effort/rhythm Overall: normal rate 07/05/2015 None Full Exam - General 1994 Cardiovascular auscultation of heart Overall: regular rate 07/05/2015 None Full Exam - General 1994 Cardiovascular auscultation of heart Overall: normal heart sounds 07/05/2015 None Full Exam - General 1994 Abdomen abdominal exam Contour: protuberant 07/05/2015 None Full Exam - General 1994 Musculoskeletal gait and station Gait: asymmetric 07/05/2015 None Full Exam - General 1994 Neurologic cranial nerves Overall: crainial nerves 2 - 12 grossly intact 07/05/2015 None Full Exam - General 1994 Psychiatric orientation/consciousness Overall: oriented to person, place and time 07/05/2015 None Full Exam - General 1994 Constitutional general appearance Overall: well developed 03/12/2015 None Full Exam - General 1994 Constitutional general appearance Overall: in no acute distress 03/12/2015 None Full Exam - General 1994 Constitutional general appearance Nourishment: obese 03/12/2015 None Full Exam - General 1994 Constitutional general appearance Evidence of Distress: in no acute distress 03/12/2015 None Full Exam - General 1994 Eyes conjunctiva/eyelids Overall: conjunctiva clear 03/12/2015 None Full Exam - General 1994 Eyes pupils and irises Overall: pupils equal, round, reactive to light and accomodation 03/12/2015 None Full Exam - General 1994 Ears/Nose/Throat otoscopic exam Overall: external auditory canals clear 03/12/2015 None Full Exam - General 1994 Ears/Nose/Throat otoscopic exam Overall: tympanic membranes clear 03/12/2015 None Full Exam - General 1994 Ears/Nose/Throat oral cavity/pharynx/larynx Overall: oral mucosa clear 03/12/2015 None Full Exam - General 1994 Respiratory auscultation Overall: breath sounds clear bilaterally 03/12/2015 None Full Exam - General 1994 Respiratory respiratory effort/rhythm Overall: no retractions 03/12/2015 None Full Exam - General 1994 Respiratory respiratory effort/rhythm Overall: normal rate 03/12/2015 None Full Exam - General 1994 Cardiovascular auscultation of heart Overall: regular rate 03/12/2015 None Full Exam - General 1994 Cardiovascular auscultation of heart Overall: normal heart sounds 03/12/2015 None Full Exam - General 1994 Abdomen abdominal exam Contour: protuberant 03/12/2015 None Full Exam - General 1994 Musculoskeletal gait and station Gait: asymmetric 03/12/2015 None Full Exam - General 1994 Neurologic cranial nerves Overall: crainial nerves 2 - 12 grossly intact 03/12/2015 None Full Exam - General 1994 Psychiatric orientation/consciousness Overall: oriented to person, place and time 03/12/2015 None Full Exam - General 1994 Constitutional general appearance Nourishment: obese 10/24/2014 None Full Exam - General 1994 Constitutional general appearance Evidence of Distress: in no acute distress 10/24/2014 None Full Exam - General 1994 Constitutional general appearance Overall: well developed 10/24/2014 None Full Exam - General 1994 Constitutional general appearance Overall: in no acute distress 10/24/2014 None Full Exam - General 1994 Psychiatric orientation/consciousness Overall: oriented to person, place and time 10/24/2014 None Full Exam - General 1994 Neurologic cranial nerves Overall: crainial nerves 2 - 12 grossly intact 10/24/2014 None Full Exam - General 1994 Musculoskeletal gait and station Gait: asymmetric 10/24/2014 None Full Exam - General 1994 Abdomen abdominal exam Contour: protuberant 10/24/2014 None Full Exam - General 1994 Cardiovascular auscultation of heart Overall: regular rate 10/24/2014 None Full Exam - General 1994 Cardiovascular auscultation of heart Overall: normal heart sounds 10/24/2014 None Full Exam - General 1994 Respiratory respiratory effort/rhythm Overall: normal rate 10/24/2014 None Full Exam - General 1994 Respiratory respiratory effort/rhythm Overall: no retractions 10/24/2014 None Full Exam - General 1994 Respiratory auscultation Overall: breath sounds clear bilaterally 10/24/2014 None Full Exam - General 1994 Ears/Nose/Throat otoscopic exam Overall: external auditory canals clear 10/24/2014 None Full Exam - General 1994 Ears/Nose/Throat otoscopic exam Overall: tympanic membranes clear 10/24/2014 None Full Exam - General 1994 Ears/Nose/Throat oral cavity/pharynx/larynx Overall: oral mucosa clear 10/24/2014 None Full Exam - General 1994 Eyes conjunctiva/eyelids Overall: conjunctiva clear 10/24/2014 None Full Exam - General 1994 Eyes pupils and irises Overall: pupils equal, round, reactive to light and accomodation 10/24/2014 None Procedures Procedure Codes Date URINALYSIS NONAUTO W/O SCOPE CPT-4: 42478 02/22/2016 Vital Signs Date Vital 11/05/2015 Blood Pressure 1: 136/68 Code: 8480-6 Heart Rate 1: 99 bpm Height: SpO2: 93% Weight: 09/27/2015 Blood Pressure 1: 144/80 Code: 8480-6 Heart Rate 1: 89 bpm Height: SpO2: 95% Weight: 07/05/2015 Blood Pressure 1: 144/82 Code: 8480-6 Heart Rate 1: 110 bpm Height: SpO2: 91% Weight: 03/12/2015 Blood Pressure 1: 130/76 Code: 8480-6 Heart Rate 1: 73 bpm Height: SpO2: 98% Weight: 10/24/2014 Blood Pressure 1: 158/78 Code: 8480-6 Blood Pressure 2: 148/72 Code: 8480-6 Heart Rate 1: 97 bpm Height: 5'10" SpO2: 96% Weight: Functional Status No Functional Status data History of Present Illness Symptom Name Status Result Effective Date Notes Hospital Follow Up Quality acute illness 11/05/2015 None Hospital Follow Up Onset of Symptom 2 weeks ago 11/05/2015 None Hospital Follow Up Onset and Resolution sudden in onset 11/05/2015 None Hospital Follow Up Pertinent Findings pain 11/05/2015 None Hospital Follow Up _ cellulitis 09/27/2015 None Hospital Follow Up Quality acute illness 09/27/2015 None Hospital Follow Up Onset and Resolution resolved 09/27/2015 None Hospital Follow Up Alleviating Factors medication 09/27/2015 None Hospital Follow Up Pertinent Findings Denies pain 09/27/2015 None pain Quality chronic 07/05/2015 None pain Onset and Resolution ongoing 07/05/2015 None pain Timing of Episodes no specific time 07/05/2015 None pain Frequency of Episodes increasing 07/05/2015 None pain Limitation on Activities moderately limits activities 07/05/2015 None pain Severity worsening 07/05/2015 None pain Alleviating Factors no alleviating factors 07/05/2015 None pain Pertinent Findings Denies dizziness 07/05/2015 None pain Pertinent Findings Denies fever 07/05/2015 None pain Pertinent Findings pain 07/05/2015 None pain Location-Major in a generalized area 07/05/2015 None pain Location-Major in a generalized area 03/12/2015 None pain Onset and Resolution ongoing 03/12/2015 None pain Pertinent Findings pain 03/12/2015 None pain Location-Extremities on both knees 03/12/2015 None pain Quality chronic 03/12/2015 None pain Timing of Episodes no specific time 03/12/2015 None pain Frequency of Episodes increasing 03/12/2015 None pain Limitation on Activities moderately limits activities 03/12/2015 None pain Severity worsening 03/12/2015 None pain Prior Treatments previously untreated 03/12/2015 None pain Alleviating Factors no alleviating factors 03/12/2015 None pain Pertinent Findings Denies fever 03/12/2015 None pain Pertinent Findings Denies dizziness 03/12/2015 None vision change Location on the right eye 10/24/2014 None vision change Onset of Symptom 7-8 days ago 10/24/2014 None vision change Pertinent Findings Denies eye pressure 10/24/2014 seeing straws at times. Intermittent. Peripheral vision. Last eye exam January was told 20/10 no signs of diabetic retinopathy. headache Location on the right 10/24/2014 back of head headache Onset of Symptom 7-8 days ago 10/24/2014 None headache Pertinent Findings Denies blurred vision 10/24/2014 can see fine straight ahead diabetes mellitus Quality insulin dependent 10/24/2014 100 units of Humulin BID diabetes mellitus Glucose monitoring daily 10/24/2014 sometimes tests at nights also before he takes 100 units or if he feels bad diabetes mellitus Test results HgbA1c level 7.2 10/24/2014 None Advance Directives No Advance Directive data Encounters Encounter Performer Location Codes ([id number]) [id number] EST. PATIENT, LEVEL IV Diagnosis: Type 2 diabetes mellitus with diabetic polyneuropathy[ICD10: E11.42] Diagnosis: Essential (primary) hypertension[ICD10: I10] Diagnosis: Panniculitis, unspecified[ICD10: M79.3] Diagnosis: Bilateral primary osteoarthritis of knee[ICD10: M17.0] Diagnosis: Heart failure, unspecified[ICD10: I50.9] Graciela Treviño MD, [facility] CPT-4: 25038 11/05/2015 [id number] EST. PATIENT, LEVEL IV Diagnosis: Encounter for follow-up examination after completed treatment for conditions other than malignant neoplasm[ICD10: Z09] Ashlyn Treviño MD, [facility] CPT-4: 70880 09/27/2015 ([id number]) [id number] EST. PATIENT, LEVEL IV Diagnosis: Type 2 diabetes mellitus with diabetic polyneuropathy[ICD10: E11.42] Diagnosis: Essential (primary) hypertension[ICD10: I10] Diagnosis: Chronic pain syndrome[ICD10: G89.4] Graciela Treviño MD, [facility] CPT-4: 13131 07/05/2015 ([id number]) [id number] EST. 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: E11.42] Graciela Treviño MD, [facility] CPT-4: 99032 03/12/2015 ([id number]) OFFICE VISIT, NEW - LEVEL 4 Diagnosis: ESSENTIAL HYPERTENSION[ICD9: 401.9] Diagnosis: Osteoarthritis of knees, bilateral[ICD9: 715.96] Diagnosis: Diabetes mellitus[ICD9: 250.00] Diagnosis: Double vision[ICD9: 368.2] Diagnosis: ACUTE SINUSITIS[ICD9: 461.9] Florence Treviño MD, [facility] CPT-4: 88111 10/24/2014 Plan of Care Planned Activity Notes Codes Status Date Patient Education: Patient Medication Summary Completed 11/15/2018 Care Plan: Total Psa Pending 11/15/2018 Care Plan: Free T4 Pending 11/15/2018 Care Plan: Tsh Pending 11/15/2018 Care Plan: Lipid Pending 11/15/2018 Care Plan: %Hba1C LOINC : 97980-0 Pending 11/15/2018 Care Plan: Cbc With Differential Pending 11/15/2018 Care Plan: Comp Metabolic Pending 11/15/2018 Patient Education: Patient Medication Summary Completed 09/08/2018 Care Plan: Tsh Pending 09/08/2018 Care Plan: Free T4 Pending 09/08/2018 Appointment: Graciela Ruvalcaba WPtel: [phone] [phone] (30 min) Complex 01/01/2017 Appointment: Nurse Visit 02/22/2016 Patient Education: Patient Medication Summary Completed 02/22/2016 Appointment: RuvalcabaGraciela WPtel: [phone] [phone] [place] (30 min) Complex 02/07/2016 Appointment: Florence Treviño WPtel: [phone] [phone] (15 min) Moderate 01/10/2016 Visit Plan: Diabetes Mellitus - controlled - per recent FSBS reports. I have recommended for the patient to have follow up labs prior to the next office visit. The patient has been instructed to continue with current medications as previously directed, continue with regular FSBS monitoring to assure continued control of diabetes. Pt to call for any acute concerns, complaints, or if the blood glucose readings are starting to become less controlled. Hypertension - well controlled - continue with current medications, continue with no added salt diet. Pt has been encouraged to exercise daily. The pt has been advised to call the office if there are any acute concerns about change in blood pressure readings at home. Panniculitis-hospital follow up- completed treatment-no further s/s of infection Bilateral OA knees-samples of voltaren gel-recommend physical therapy. 11/05/2015 Visit Plan: Diabetes Mellitus - controlled - per recent FSBS reports. I have recommended for the patient to have follow up labs prior to the next office visit. The patient has been instructed to continue with current medications as previously directed, continue with regular FSBS monitoring to assure continued control of diabetes. Pt to call for any acute concerns, complaints, or if the blood glucose readings are starting to become less controlled. Hypertension - well controlled - continue with current medications, continue with no added salt diet. Pt has been encouraged to exercise daily. The pt has been advised to call the office if there are any acute concerns about change in blood pressure readings at home. Panniculitis-hospital follow up- completed treatment-no further s/s of infection Bilateral OA knees-samples of voltaren gel-recommend physical therapy. ADDENDUM: PATIENT HAS HYPOVENTILATION SYNDOME DUE TO OBESITY AND CONGESTIVE HEART FAILURE-WILL NEED BARIATRIC BED FOR HOME USE-HE CANNOT BREATHE/OXYGENATE WHEN HE IS LAYING FLAT. HEAD OF BED NEEDS TO BE ABOVE 30 DEGREES TO DECREASE HYPOXEMIA AND PATIENT NEEDS FREQUENT REPOSITIONING. 11/05/2015 Visit Plan: Diabetes Mellitus - controlled - per recent FSBS reports. I have recommended for the patient to have follow up labs prior to the next office visit. The patient has been instructed to continue with current medications as previously directed, continue with regular FSBS monitoring to assure continued control of diabetes. Pt to call for any acute concerns, complaints, or if the blood glucose readings are starting to become less controlled. Hypertension - well controlled - continue with current medications, continue with no added salt diet. Pt has been encouraged to exercise daily. The pt has been advised to call the office if there are any acute concerns about change in blood pressure readings at home. Panniculitis-hospital follow up- completed treatment-no further s/s of infection Bilateral OA knees-samples of voltaren gel-recommend physical therapy. ADDENDUM: PATIENT HAS HYPOVENTILATION SYNDOME DUE TO OBESITY-WILL NEED BARIATRIC BED FOR HOME USE-HE CANNOT BREATHE/OXYGENATE WHEN HE IS LAYING FLAT. 11/05/2015 Patient Education: Patient Medication Summary Completed 11/05/2015 Care Plan: Comp Metabolic Pending 11/05/2015 Care Plan: Tsh Pending 11/05/2015 Care Plan: Total Psa Pending 11/05/2015 Care Plan: Cbc With Differential Pending 11/05/2015 Care Plan: %Hba1C LOINC : 45930-1 Pending 11/05/2015 Visit Plan: Hospital follow up - This was a follow up appointment from the patient's hospitalization during which time Dr. Treviño formulated the assessment and plan for the follow up on this patient's medical condition. 09/27/2015 Patient Education: Patient Medication Summary Completed 09/27/2015 Visit Plan: Hypertension - well controlled - continue with current medications, continue with no added salt diet. Pt has been encouraged to exercise daily. The pt has been advised to call the office if there are any acute concerns about change in blood pressure readings at home. Diabetes Mellitus - controlled - per recent FSBS reports. I have recommended for the patient to have follow up labs prior to the next office visit. The patient has been instructed to continue with current medications as previously directed, continue with regular FSBS monitoring to assure continued control of diabetes. Pt to call for any acute concerns, complaints, or if the blood glucose readings are starting to become less controlled. Chronic Pain Syndrome - pt has chronic pain - has been maintained on current medications, has not sought out other medications, only uses PRN pain medications as directed, and understands the consequences of over-medication. Change morphine to extended release. 07/05/2015 Patient Education: Patient Medication Summary Completed 07/05/2015 Patient Education: Hypertension Completed 07/05/2015 Visit Plan: Hypertension - well controlled - continue with current medications, continue with no added salt diet. Pt has been encouraged to exercise daily. The pt has been advised to call the office if there are any acute concerns about change in blood pressure readings at home. Diabetes Mellitus - controlled - per recent FSBS reports. I have recommended for the patient to have follow up labs prior to the next office visit. The patient has been instructed to continue with current medications as previously directed, continue with regular FSBS monitoring to assure continued control of diabetes. Pt to call for any acute concerns, complaints, or if the blood glucose readings are starting to become less controlled. Chronic knee pain-recommend referral to Ortho for evaluation and management-refill pain pills 03/12/2015 Appointment: (15 min) Moderate 03/12/2015 Appointment: (30 min) Complex 03/12/2015 Patient Education: Patient Medication Summary Completed 03/12/2015 Patient Education: Hypertension Completed 03/12/2015 Appointment: Florence Treviño WPtel: [address] [place], [place] [phone] (30 min) Complex 01/24/2015 Visit Plan: HTN-elevated to but well controlled at home-no changes in current treatment Sinusitis - Pt has acute infection - pain in face, maxillary region, Pt informed to use decongestant, RX given to patient, sinus rinses also recommended. Call if symptoms do not show improvement. Double vision-recommend dilated eye exam JENN Bilateral knee pain-refill hydrocodone DM-controlled per recent FSBS log-no change in medication at this time 10/24/2014 Appointment: Graciela Ruvalcaba WPtel[phone] [place] ([place] New Patient 10/24/2014 Patient Education: Patient Medication Summary Completed 10/24/2014 Patient Education: Hypertension Completed 10/24/2014 Appointment: Florence [facility]el[phone] [phone] [place] New Patient 09/25/2014 Instructions Comment LET US KNOW IF YOU WANT REFERRED TO ORTHOPEDICS FOR YOUR KNEE PAIN STOP BY IN 1-2 MONTHS SO I CAN TAKE A QUICK LOOK AT THE LESION IN YOUR LEFT EAR- IF STILL PRESENT, MAY NEED TO SEE DR GRIJALVA . Hypertension - well controlled - continue with current medications, continue with no added salt diet. Pt has been encouraged to exercise daily. The pt has been advised to call the office if there are any acute concerns about change in blood pressure readings at home. Diabetes Mellitus - controlled - per recent FSBS reports. I have recommended for the patient to have follow up labs prior to the next office visit. The patient has been instructed to continue with current medications as previously directed, continue with regular FSBS monitoring to assure continued control of diabetes. Pt to call for any acute concerns, complaints, or if the blood glucose readings are starting to become less controlled. Chronic knee pain-recommend referral to Ortho for evaluation and management- refill pain pills . Hypertension - well controlled - continue with current medications, continue with no added salt diet. Pt has been encouraged to exercise daily. The pt has been advised to call the office if there are any acute concerns about change in blood pressure readings at home. Diabetes Mellitus - controlled - per recent FSBS reports. I have recommended for the patient to have follow up labs prior to the next office visit. The patient has been instructed to continue with current medications as previously directed, continue with regular FSBS monitoring to assure continued control of diabetes. Pt to call for any acute concerns, complaints, or if the blood glucose readings are starting to become less controlled. Chronic Pain Syndrome - pt has chronic pain - has been maintained on current medications, has not sought out other medications, only uses PRN pain medications as directed, and understands the consequences of over-medication. Change morphine to extended release. . HTN-elevated to but well controlled at home-no changes in current treatment Sinusitis - Pt has acute infection - pain in face, maxillary region, Pt informed to use decongestant, RX given to patient, sinus rinses also recommended. Call if symptoms do not show improvement. Double vision-recommend dilated eye exam JENN Bilateral knee pain-refill hydrocodone DM-controlled per recent FSBS log-no change in medication at this time . Diabetes Mellitus - controlled - per recent FSBS reports. I have recommended for the patient to have follow up labs prior to the next office visit. The patient has been instructed to continue with current medications as previously directed, continue with regular FSBS monitoring to assure continued control of diabetes. Pt to call for any acute concerns, complaints, or if the blood glucose readings are starting to become less controlled. Hypertension - well controlled - continue with current medications, continue with no added salt diet. Pt has been encouraged to exercise daily. The pt has been advised to call the office if there are any acute concerns about change in blood pressure readings at home. Panniculitis-hospital follow up-completed treatment-no further s/s of infection Bilateral OA knees-samples of voltaren gel-recommend physical therapy. . Diabetes Mellitus - controlled - per recent FSBS reports. I have recommended for the patient to have follow up labs prior to the next office visit. The patient has been instructed to continue with current medications as previously directed, continue with regular FSBS monitoring to assure continued control of diabetes. Pt to call for any acute concerns, complaints, or if the blood glucose readings are starting to become less controlled. Hypertension - well controlled - continue with current medications, continue with no added salt diet. Pt has been encouraged to exercise daily. The pt has been advised to call the office if there are any acute concerns about change in blood pressure readings at home. Panniculitis-hospital follow up-completed treatment-no further s/s of infection Bilateral OA knees-samples of voltaren gel-recommend physical therapy. ADDENDUM: PATIENT HAS HYPOVENTILATION SYNDOME DUE TO OBESITY AND CONGESTIVE HEART FAILURE-WILL NEED BARIATRIC BED FOR HOME USE-HE CANNOT BREATHE/OXYGENATE WHEN HE IS LAYING FLAT. HEAD OF BED NEEDS TO BE ABOVE 30 DEGREES TO DECREASE HYPOXEMIA AND PATIENT NEEDS FREQUENT REPOSITIONING. . Diabetes Mellitus - controlled - per recent FSBS reports. I have recommended for the patient to have follow up labs prior to the next office visit. The patient has been instructed to continue with current medications as previously directed, continue with regular FSBS monitoring to assure continued control of diabetes. Pt to call for any acute concerns, complaints, or if the blood glucose readings are starting to become less controlled. Hypertension - well controlled - continue with current medications, continue with no added salt diet. Pt has been encouraged to exercise daily. The pt has been advised to call the office if there are any acute concerns about change in blood pressure readings at home. Panniculitis-hospital follow up-completed treatment-no further s/s of infection Bilateral OA knees-samples of voltaren gel-recommend physical therapy. ADDENDUM: PATIENT HAS HYPOVENTILATION SYNDOME DUE TO OBESITY-WILL NEED BARIATRIC BED FOR HOME USE-HE CANNOT BREATHE/OXYGENATE WHEN HE IS LAYING FLAT. . Hospital follow up - This was a follow up appointment from the patient's hospitalization during which time Dr. Treviño formulated the assessment and plan for the follow up on this patient's medical condition.
--- OUTSIDE RECORDS SUMMARY | 2018-11-25 12:38 | XMS REPORT | CCD ---
Author Author Florence Treviño Organization Florence Treviño MD, [facility] Address [address] [place] [address] Phone Care Team Providers Care Director Of Patient Safety Name Role Phone PP Unavailable CCM Unavailable Summary Purpose Interface Exchange Insurance Providers Payer name Policy type / Coverage type Covered libertarian ID Effective Begin Date Effective End Date [facility] [id number] 2015 Unknown Family history Father Diagnosis Age [...] Retired disabled 10/24/[address]: 4371108 Former smoker quit 1993 10/24/2014 Allergies, Adverse [...] Start Date Stop Date Status Fill Instructions Keflex 500 mg capsule RxNorm: 114310 1 Capsule(s) PO TID 11/05/2018 11/14/2018 Inactive Take probiotic while on antibiotic hydrocodone 10 mg-acetaminophen 325 mg tablet RxNorm: 294559 2 Tablet(s) PO Q6 PRN 10/19/2018 11/09/2018 Inactive levothyroxine 50 mcg tablet RxNorm: 1 Tablet(s) PO daily 09/21/2018 01/18/2019 Active hydrocodone 10 mg-acetaminophen 325 mg tablet RxNorm: 967666 2 Tablet(s) PO Q6 PRN 09/07/2018 09/28/2018 Inactive hydrocodone 10 mg-acetaminophen 325 mg tablet RxNorm: 528441 2 Tablet(s) PO Q6 PRN 07/05/2018 07/26/2018 Inactive mupirocin 2 % topical ointment RxNorm: 417741 APPLY TO AFFECTED AREA(S) TWO TIMES A DAY 07/05/2018 07/26/2018 Inactive levothyroxine 25 mcg tablet RxNorm: 881573 1 Tablet(s) PO daily 06/03/2018 09/20/2018 Inactive levothyroxine 25 mcg tablet RxNorm: 213155 1 Tablet(s) PO daily 06/03/2018 06/02/2018 Inactive hydrocodone 10 mg-acetaminophen 325 mg tablet RxNorm: 691417 2 Tablet(s) PO Q6 PRN 05/25/2018 06/15/2018 Inactive hydrocodone 10 mg-acetaminophen 325 mg tablet RxNorm: 194397 2 Tablet(s) PO Q6 PRN 04/13/2018 05/04/2018 Inactive hydrocodone 10 mg-acetaminophen 325 mg tablet RxNorm: 358134 2 Tablet(s) PO Q6 PRN 03/12/2018 04/02/2018 Inactive potassium chloride ER 10 mEq tablet,extended release RxNorm: 030030 TAKE ONE TABLET BY MOUTH FOUR TIMES A WEEK NEEDED 02/24/2018 07/13/2018 Inactive Neurontin 800 mg tablet RxNorm: 604108 TAKE ONE TABLET BY MOUTH THREE TIMES A DAY 02/09/2018 05/09/2018 Inactive nystatin 100,000 unit/gram topical powder RxNorm: 771699 APPLY ONE GRAM TOPICALLY FOUR TIMES A DAY NEEDED 02/03/2018 02/14/2018 Inactive hydrocodone 10 mg-acetaminophen 325 mg tablet RxNorm: 118809 2 Tablet(s) PO Q6 PRN 01/26/2018 02/16/2018 Inactive Novolin 70/30 U-100 Insulin 100 unit/mL subcutaneous suspension RxNorm: 909784 INJECT 100 UNITS UNDER THE SKIN TWO TIMES A DAY 01/04/2018 05/03/2018 Inactive mupirocin 2 % topical ointment RxNorm: 659925 1 Gram(s) TOP BID to affected area 12/29/2017 07/04/2018 Inactive Levaquin 500 mg tablet RxNorm: 873793 1 Tablet(s) PO daily 12/29/2017 01/04/2018 Inactive mupirocin 2 % topical ointment RxNorm: 054481 1 Gram(s) TOP BID to affected area 12/28/2017 12/28/2017 Inactive Levaquin 500 mg tablet RxNorm: 383367 1 Tablet(s) PO daily 12/28/2017 12/28/2017 Inactive hydrocodone 10 mg-acetaminophen 325 mg tablet RxNorm: 740407 2 Tablet(s) PO Q6 PRN 12/28/2017 01/18/2018 Inactive Novolin 70/30 U-100 Insulin 100 unit/mL subcutaneous suspension RxNorm: 608487 INJECT 100 UNITS UNDER THE SKIN TWO TIMES A DAY 11/24/2017 12/13/2017 Inactive hydrocodone 10 mg-acetaminophen 325 mg tablet RxNorm: 934993 2 Tablet(s) PO Q6 PRN 11/02/2017 11/23/2017 Inactive nystatin 100,000 unit/gram topical powder RxNorm: 228085 APPLY ONE GRAM TOPICALLY FOUR TIMES A DAY NEEDED 10/22/2017 11/02/2017 Inactive hydrocodone 10 mg-acetaminophen 325 mg tablet RxNorm: 267983 2 Tablet(s) PO Q6 PRN 09/21/2017 10/12/2017 Inactive Levaquin 500 mg tablet RxNorm: 664177 1 Tablet(s) PO daily 09/04/2017 09/03/2017 Inactive Levaquin 500 mg tablet RxNorm: 772699 1 Tablet(s) PO daily 09/04/2017 09/10/2017 Inactive Keflex 500 mg capsule RxNorm: 626470 1 Capsule(s) PO daily 08/19/2017 08/18/2017 Inactive Take probiotic while on antibiotic hydrocodone 10 mg-acetaminophen 325 mg tablet RxNorm: 386839 2 Tablet(s) PO Q6 PRN 08/19/2017 09/09/2017 Inactive Keflex 500 mg capsule RxNorm: 518290 1 Capsule(s) PO QID 08/19/2017 12/27/2017 Inactive Take probiotic while on antibiotic mupirocin 2 % topical ointment RxNorm: 890849 1 Gram(s) TOP BID to affected area 08/19/2017 12/27/2017 Inactive hydrocodone 10 mg-acetaminophen 325 mg tablet RxNorm: 927819 2 Tablet(s) PO Q6 PRN 07/20/2017 08/10/2017 Inactive hydrocodone 10 mg-acetaminophen 325 mg tablet RxNorm: 238131 2 Tablet(s) PO Q6 PRN 06/12/2017 07/03/2017 Inactive ipratropium-albuterol 0.5 mg-3 mg(2.5 mg base)/3 mL nebulization soln RxNorm: 9846355 INHALE ONE VIAL VIA NEBULIZER EVERY 4 HOURS NEEDED FOR SHORTNESS OF BREATH 06/03/2017 No Stop Date Active hydrocodone 10 mg-acetaminophen 325 mg tablet RxNorm: 720031 2 Tablet(s) PO Q6 PRN 05/13/2017 06/03/2017 Inactive Lasix 80 mg tablet RxNorm: 570635 Tablet(s) TAKE ONE TABLET BY MOUTH DAILY 05/06/2017 11/01/2017 Inactive hydrocodone 10 mg-acetaminophen 325 mg tablet RxNorm: 249626 2 Tablet(s) PO Q6 PRN 04/13/2017 05/04/2017 Inactive hydrocodone 10 mg-acetaminophen 325 mg tablet RxNorm: 646178 2 Tablet(s) PO Q6 PRN 03/02/2017 03/23/2017 Inactive potassium chloride ER 10 mEq tablet,extended release RxNorm: 215494 TAKE ONE TABLET BY MOUTH FOUR TIMES A WEEK NEEDED 02/09/2017 03/22/2017 Inactive potassium chloride ER 10 mEq tablet,extended release RxNorm: 144224 TAKE ONE TABLET BY MOUTH FOUR TIMES A WEEK NEEDED 02/09/2017 02/08/2017 Inactive Neurontin 800 mg tablet RxNorm: 969343 TAKE ONE TABLET BY MOUTH THREE TIMES A DAY 01/20/2017 05/19/2017 Inactive hydrocodone 10 mg-acetaminophen 325 mg tablet RxNorm: 728340 2 Tablet(s) PO Q6 PRN 01/12/2017 02/02/2017 Inactive Lasix 80 mg tablet RxNorm: 457853 Tablet(s) TAKE ONE TABLET BY MOUTH DAILY 01/12/2017 03/12/2017 Inactive Novolin 70/30 U-100 Insulin 100 unit/mL subcutaneous suspension RxNorm: 565664 INJECT 100 UNITS UNDER THE SKIN TWO TIMES A DAY 01/09/2017 02/17/2017 Inactive Please contact prescriber by phone/fax. 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 to Lab Coordinator unable to process Rejection Czrq=118 Rejection fdtlwu=[id number] FAX FAILED: No local dialtone; too many attempts to dial Lasix 80 mg tablet RxNorm: 332167 Tablet(s) TAKE ONE TABLET BY MOUTH DAILY 01/06/2017 01/11/2017 Inactive hydrocodone 10 mg-acetaminophen 325 mg tablet RxNorm: 176384 2 Tablet(s) PO Q6 PRN 11/25/2016 12/16/2016 Inactive nystatin 100,000 unit/gram topical powder RxNorm: 297724 1 Gram(s) TOP QID as needed 11/25/2016 10/21/2017 Inactive hydrocodone 10 mg-acetaminophen 325 mg tablet RxNorm: 240167 2 Tablet(s) PO Q6 PRN 10/30/2016 11/20/2016 Inactive hydrocodone 10 mg-acetaminophen 325 mg tablet RxNorm: 197952 2 Tablet(s) PO Q6 PRN 10/01/2016 10/22/2016 Inactive hydrocodone 10 mg-acetaminophen 325 mg tablet RxNorm: 139371 2 Tablet(s) PO Q6 PRN 09/01/2016 09/22/2016 Inactive Novolin 70/30 100 unit/mL subcutaneous suspension RxNorm: 132329 INJECT 100 UNITS UNDER THE SKIN TWO TIMES A DAY 08/21/2016 09/04/2016 Inactive hydrocodone 10 mg-acetaminophen 325 mg tablet RxNorm: 735569 2 Tablet(s) PO Q6 PRN 07/29/2016 08/19/2016 Inactive hydrocodone 10 mg-acetaminophen 325 mg tablet RxNorm: 879050 2 Tablet(s) PO Q6 PRN 06/30/2016 07/21/2016 Inactive Neurontin 800 mg tablet RxNorm: 926806 1 Tablet(s) PO TID 06/23/2016 12/19/2016 Inactive glyburide 5 mg tablet RxNorm: 023345 TAKE ONE TABLET BY MOUTH TWICE A DAY 06/12/2016 09/09/2016 Inactive hydrocodone 10 mg-acetaminophen 325 mg tablet RxNorm: 893214 2 Tablet(s) PO Q6 PRN 05/16/2016 06/06/2016 Inactive morphine ER 15 mg tablet,extended release RxNorm: 951344 1 Tablet(s) 15mg IR PO BID as needed 05/13/2016 06/11/2016 Inactive nystatin 100,000 unit/gram topical powder RxNorm: 245073 1 Gram(s) TOP QID as needed 05/13/2016 11/24/2016 Inactive gemfibrozil 600 mg tablet RxNorm: 967904 TAKE ONE TABLET BY MOUTH TWICE A DAY 05/05/2016 10/31/2016 Inactive hydrocodone 10 mg-acetaminophen 325 mg tablet RxNorm: 703052 2 Tablet(s) PO Q6 PRN 04/18/2016 05/09/2016 Inactive Keflex 500 mg capsule RxNorm: 878376 1 Capsule(s) PO TID 04/15/2016 06/22/2016 Inactive Keflex 500 mg capsule RxNorm: 842430 1 Capsule(s) PO TID 04/15/2016 04/14/2016 Inactive hydrocodone 10 mg-acetaminophen 325 mg tablet RxNorm: 153157 2 Tablet(s) PO Q6 PRN 03/19/2016 04/17/2016 Inactive captopril 100 mg tablet RxNorm: 148699 TAKE ONE TABLET BY MOUTH TWICE A DAY 03/03/2016 06/30/2016 Inactive gemfibrozil 600 mg tablet RxNorm: 770638 TAKE ONE TABLET BY MOUTH TWICE A DAY 03/03/2016 05/01/2016 Inactive hydrocodone 10 mg-acetaminophen 325 mg tablet RxNorm: 480712 2 Tablet(s) PO Q6 PRN 02/28/2016 03/18/2016 Inactive Cipro 500 mg tablet RxNorm: 532562 1 Tablet(s) PO BID 02/21/2016 02/27/2016 Inactive [SAVINGS FOR NON-COVERED DRUGS -- BIN:[id number], PCN: [id number], Group: XXXXX, ID# [id number], Questions: . THIS IS NOT INSURANCE.] hydrocodone 10 mg-acetaminophen 325 mg tablet RxNorm: 067962 2 Tablet(s) PO Q6 PRN 02/01/2016 02/27/2016 Inactive hydrocodone 10 mg-acetaminophen 325 mg tablet RxNorm: 766669 2 Tablet(s) PO Q6 PRN 01/08/2016 01/31/2016 Inactive Lasix 80 mg tablet RxNorm: 448255 TAKE ONE TABLET BY MOUTH DAILY 12/18/2015 01/16/2016 Inactive Request already responded to by other means (e.g. phone or fax) gemfibrozil 600 mg tablet RxNorm: 380038 TAKE ONE TABLET BY MOUTH TWICE A DAY 12/18/2015 03/02/2016 Inactive Request already responded to by other means (e.g. phone or fax) glyburide 5 mg tablet RxNorm: 097440 TAKE ONE TABLET BY MOUTH TWICE A DAY 12/18/2015 01/16/2016 Inactive Request already responded to by other means (e.g. phone or fax) glyburide 5 mg tablet RxNorm: 983615 TAKE ONE TABLET BY MOUTH TWICE A DAY 12/14/2015 02/11/2016 Inactive gemfibrozil 600 mg tablet RxNorm: 855248 TAKE ONE TABLET BY MOUTH TWICE A DAY 12/14/2015 03/12/2016 Inactive potassium chloride ER 10 mEq tablet,extended release RxNorm: 052746 TAKE ONE TABLET BY MOUTH DAILY 12/14/2015 02/23/2018 Inactive potassium chloride ER 10 mEq tablet,extended release RxNorm: 525022 TAKE ONE TABLET BY MOUTH DAILY 12/14/2015 01/12/2016 Inactive Lasix 80 mg tablet RxNorm: 131460 TAKE ONE TABLET BY MOUTH DAILY 12/14/2015 02/11/2016 Inactive Neurontin 800 mg tablet RxNorm: 140348 1 Tablet(s) PO TID 12/10/2015 06/06/2016 Inactive morphine ER 15 mg tablet,extended release RxNorm: 800894 1 Tablet(s) 15mg IR PO BID as needed 12/03/2015 01/01/2016 Inactive Neurontin 800 mg tablet RxNorm: 521508 1 Tablet(s) PO TID 11/05/2015 12/09/2015 Inactive hydrocodone 10 mg-acetaminophen 325 mg tablet RxNorm: 555114 2 Tablet(s) PO Q6 PRN 10/23/2015 01/07/2016 Inactive hydrocodone 10 mg-acetaminophen 325 mg tablet RxNorm: 587455 2 Tablet(s) PO Q6 PRN 10/02/2015 10/22/2015 Inactive Neurontin 800 mg tablet RxNorm: 003510 1 Tablet(s) PO TID 09/27/2015 11/04/2015 Inactive Diflucan 150 mg tablet RxNorm: 111994 1 Tablet(s) PO daily 09/06/2015 09/05/2015 Inactive Keflex 500 mg capsule RxNorm: 509712 1 Capsule(s) PO TID 09/06/2015 12/09/2015 Inactive Diflucan 150 mg tablet RxNorm: 255582 1 Tablet(s) PO daily 09/06/2015 12/09/2015 Inactive Keflex 500 mg capsule RxNorm: 568393 1 Capsule(s) PO TID 09/06/2015 09/05/2015 Inactive Novolin 70/30 100 unit/mL subcutaneous suspension RxNorm: 194177 INJECT 100 UNITS UNDER THE SKIN TWO TIMES A DAY 08/20/2015 11/07/2015 Inactive morphine ER 15 mg tablet,extended release RxNorm: 755312 1 Tablet(s) 15mg IR PO BID as needed 08/08/2015 11/04/2015 Inactive Novolin 70/30 100 unit/mL subcutaneous suspension RxNorm: 374055 100 Unit(s) SQ BID 07/10/2015 08/08/2015 Inactive Novolin 70/30 100 unit/mL subcutaneous solution RxNorm: 666935 100 Unit(s) SQ BID 07/10/2015 07/09/2015 Inactive Mobic 15 mg tablet RxNorm: 942231 1 Tablet(s) PO daily 07/05/2015 12/31/2015 Inactive captopril 100 mg tablet RxNorm: 413756 1 Tablet(s) PO BID 07/05/2015 12/31/2015 Inactive Lopid 600 mg tablet RxNorm: 719178 1 Tablet(s) PO BID 07/05/2015 No Stop Date Active hydrocodone 10 mg-acetaminophen 325 mg tablet RxNorm: 293864 2 Tablet(s) PO Q6 PRN 07/05/2015 10/01/2015 Inactive Neurontin 800 mg tablet RxNorm: 288327 1 Tablet(s) PO TID 07/05/2015 09/26/2015 Inactive Humulin 70/30 100 unit/mL subcutaneous suspension RxNorm: 125899 100 100 Unit(s) SQ BID 07/05/2015 07/09/2015 Inactive may dispense 30 or 90 day supply Lyrica 75 mg capsule RxNorm: 431614 1 Capsule(s) PO BID 07/05/2015 07/04/2015 Inactive glyburide 5 mg tablet RxNorm: 220813 1 Tablet(s) PO BID 07/05/2015 12/13/2015 Inactive potassium chloride ER 10 mEq tablet,extended release RxNorm: 616719 1 Tablet(s) PO daily 07/05/2015 12/13/2015 Inactive Lasix 80 mg tablet RxNorm: 236917 1 Tablet(s) PO daily 07/05/2015 12/13/2015 Inactive Lyrica 75 mg capsule RxNorm: 241952 1 Capsule(s) PO BID 07/05/2015 11/04/2015 Inactive morphine ER 15 mg tablet,extended release RxNorm: 170624 1 Tablet(s) 15mg IR PO BID as needed 07/05/2015 08/03/2015 Inactive morphine 15 mg capsule RxNorm: 384382 1 Capsule(s) 15mg IR PO BID as needed 06/25/2015 07/04/2015 Inactive morphine 15 mg capsule RxNorm: 040180 1 Capsule(s) 15mg IR PO BID as needed 05/24/2015 06/22/2015 Inactive morphine 15 mg capsule RxNorm: 423496 1 Capsule(s) 15mg IR PO BID as needed 04/16/2015 05/14/2015 Inactive gemfibrozil 600 mg tablet RxNorm: 275507 1 Tablet(s) PO BID 04/11/2015 07/05/2015 Inactive Glucophage 1,000 mg tablet RxNorm: 967476 1 Tablet(s) PO BID 03/12/2015 03/05/2016 Inactive captopril 100 mg tablet RxNorm: 879296 1 Tablet(s) PO BID 03/12/2015 07/04/2015 Inactive potassium chloride ER 10 mEq tablet,extended release RxNorm: 284460 1 Tablet(s) PO daily 03/12/2015 07/04/2015 Inactive glyburide 5 mg tablet RxNorm: 340309 1 Tablet(s) PO BID 03/12/2015 07/04/2015 Inactive Mobic 15 mg tablet RxNorm: 156425 1 Tablet(s) PO daily 03/12/2015 07/04/2015 Inactive morphine 15 mg capsule RxNorm: 272796 1 Capsule(s) 15mg IR PO BID as needed 03/12/2015 04/10/2015 Inactive hydrocodone 10 mg-acetaminophen 325 mg tablet RxNorm: 652633 2 Tablet(s) PO Q6 PRN 03/12/2015 07/04/2015 Inactive Neurontin 800 mg tablet RxNorm: 861496 1 Tablet(s) PO TID 03/12/2015 06/09/2015 Inactive morphine 15 mg capsule RxNorm: 429351 1 Capsule(s) 15mg IR PO BID as needed 02/09/2015 03/10/2015 Inactive Glucophage 1,000 mg tablet RxNorm: 471035 1 Tablet(s) PO BID 01/31/2015 03/11/2015 Inactive Glucophage 1,000 mg tablet RxNorm: 657825 1 Tablet(s) PO BID 01/15/2015 01/30/2015 Inactive morphine 15 mg capsule RxNorm: 307501 1 Capsule(s) 15mg IR PO BID as needed 01/11/2015 02/08/2015 Inactive hydrocodone 10 mg-acetaminophen 325 mg tablet RxNorm: 647483 2 Tablet(s) PO Q6 PRN 01/11/2015 03/11/2015 Inactive morphine 15 mg capsule RxNorm: 106861 1 Capsule(s) 15mg IR PO BID as needed 12/13/2014 01/10/2015 Inactive morphine 15 mg capsule RxNorm: 818276 1 Capsule(s) PO BID as needed 12/08/2014 12/07/2014 Inactive morphine 15 mg capsule RxNorm: 024207 1 Capsule(s) PO BID as needed 12/08/2014 12/12/2014 Inactive hydrocodone 10 mg-acetaminophen 325 mg tablet RxNorm: 405331 2 Tablet(s) PO Q6 PRN 10/27/2014 01/10/2015 Inactive clindamycin 150 mg capsule RxNorm: 280598 1 Capsule(s) PO QID 10/24/2014 11/02/2014 Inactive hydrocodone 10 mg-acetaminophen 325 mg tablet RxNorm: 555321 1 Tablet(s) PO Q6 PRN 10/24/2014 10/26/2014 Inactive Cipro 500 mg tablet RxNorm: 207459 1 Tablet(s) PO BID 09/08/2014 09/17/2014 Inactive [SAVINGS FOR NON-COVERED DRUGS -- BIN:665775, PCN: [id number], Group: XXXXX, ID# [id number], Questions: . THIS IS NOT INSURANCE.] Flagyl 500 mg tablet RxNorm: 436618 1 Tablet(s) PO TID 09/08/2014 09/17/2014 Inactive [SAVINGS FOR NON-COVERED DRUGS -- BIN:595002, PCN: ASPROD1, Group: XXXXX, ID# [id number], Questions: . THIS IS NOT INSURANCE.] Flagyl 500 mg tablet RxNorm: 789239 1 Tablet(s) PO TID 09/08/2014 09/07/2014 Inactive Cipro 500 mg tablet RxNorm: 274486 1 Tablet(s) PO BID 09/08/2014 09/07/2014 Inactive Promethazine VC-Codeine 6.25 mg-5 mg-10 mg/5 mL syrup RxNorm: 956333 to 10 Milliliter(s) PO Q6 No Start Date Active multivitamin oral RxNorm: 65209 oral No Start Date Active Fish Oil capsule RxNorm: Capsule(s) PO 1200 mg No Start Date Active melatonin 5 mg tablet RxNorm: 844178 2 Tablet(s) PO QHS No Start Date Active vitamin E 1,000 unit tablet RxNorm: 557639 oral No Start Date Active Calcium 600 + D(3) oral RxNorm: 015097 oral No Start Date Active Multiple Vitamins Daily oral RxNorm: 38351 oral No Start Date Active oxycodone 10 mg tablet RxNorm: 9059483 1 Tablet(s) PO Q6 PRN No Start Date Active Lopid 600 mg tablet RxNorm: 196602 1 Tablet(s) PO BID No Start Date 04/10/2015 Inactive vitamin X74-mezfolt B1 intramuscular RxNorm: 51691 intramuscular No Start Date 11/04/2015 Inactive Mobic 15 mg tablet RxNorm: 080519 1 Tablet(s) PO daily No Start Date 03/11/2015 Inactive Vitamin D3 2,000 unit capsule RxNorm: 889743 1 Capsule(s) PO daily No Start Date 11/04/2015 Inactive Vitamin C 1,000 mg tablet RxNorm: 376658 1 Tablet(s) PO daily No Start Date 11/04/2015 Inactive captopril 100 mg tablet RxNorm: 412510 1 Tablet(s) PO BID No Start Date 03/11/2015 Inactive nystatin 100,000 unit/gram topical powder RxNorm: 541166 1 Gram(s) TOP QID as needed No Start Date 05/12/2016 Inactive Neurontin 800 mg tablet RxNorm: 105516 1 Tablet(s) PO TID No Start Date 03/11/2015 Inactive mupirocin 2 % topical ointment RxNorm: 825397 1 Gram(s) TOP BID to affected area No Start Date 08/18/2017 Inactive KCL 20 meq RxNorm: 1 Tablet(s) PO daily No Start Date 03/11/2015 Inactive Lasix 80 mg tablet RxNorm: 012475 1 Tablet(s) PO daily No Start Date 07/04/2015 Inactive ipratropium-albuterol 0.5 mg-3 mg(2.5 mg base)/3 mL nebulization soln RxNorm: 0676961 INHALE ONE VIAL VIA NEBULIZER EVERY 4 HOURS NEEDED FOR SHORTNESS OF BREATH No Start Date 06/02/2017 Inactive Lyrica 75 mg capsule RxNorm: 915404 1 Capsule(s) PO BID No Start Date 07/04/2015 Inactive glyburide 5 mg tablet RxNorm: 929433 1 Tablet(s) PO BID No Start Date 03/11/2015 Inactive hydrocodone 10 mg-acetaminophen 325 mg tablet RxNorm: 072311 1 Tablet(s) PO Q6 PRN No Start Date 10/23/2014 Inactive Glucophage 1,000 mg tablet RxNorm: 628096 2 Tablet(s) PO daily No Start Date 01/14/2015 Inactive Humulin 70/30 100 unit/mL subcutaneous suspension RxNorm: 095509 100 Unit(s) SQ BID No Start Date [...] 401.9 10/24/2014 Diabetes mellitus ICD-9: 250.00 10/24/2014 Osteoarthritis of knees, bilateral ICD-9: 715.96 10/24/2014 Double vision ICD-9: 368.2 10/24/2014 Reason For Visit Reason For Visit Effective Dates Notes Hospital Follow Up 11/05/2015 Hospital Follow Up 09/27/2015 pain 07/05/2015 pain 03/12/2015 vision change 10/24/2014 Results Observation Observation Code Item Item Code Result Date %Hba1C Eju724 % HbA1c 70681- 6 7.3 % 07/05/2015 %Hba1C Tqb029 Gluc Ave 163 mg/dL 07/05/2015 Cbc With [...] 30.5 pg 07/05/2015 Cbc With Differential Ord2 Amelia% 8.1 % 07/05/2015 Cbc With Differential Ord2 [...] 1.65 K/ul 07/05/2015 Cbc With Differential Ord2 Amelia ABS# 0.7 K/ul 07/05/2015 Cbc With Differential Ord2 Eos ABS# 0.4 K/ul 07/05/2015 Cbc With Differential Ord2 Baso ABS# 0.0 K/ul 07/05/2015 Cbc With Differential Ord2 New Analyzer Notice Please note new ref ranges starting 05-30-2015 due to implemntation of new five part differential hematolgy analyzer. 07/05/2015 Tsh Ord6 hTSH II 1.45 uIU/mL 07/05/2015 Total Psa Ord10 PSA 0.14 ng/mL 07/05/2015 Comp Metabolic Txq829 NA 138 mEq/L 07/05/2015 Comp Metabolic Nwt938 K 4.7 mEq/L 07/05/2015 Comp Metabolic Tqr985 CL 101 mEq/L 07/05/2015 Comp Metabolic Sec450 CO2 27.0 mEq/L 07/05/2015 Comp Metabolic Asx098 ANION GAP 15 07/05/2015 Comp Metabolic Lho722 GLUCOSE 152 mg/dL 07/05/2015 Comp Metabolic Wrq846 Creat 0.8 mg/dL 07/05/2015 Comp Metabolic Xol403 eGFR 106 ml/min/1.73m2 07/05/2015 Comp Metabolic Cvf894 BUN 14 mg/dL 07/05/2015 Comp Metabolic Aoh036 B/C Ratio 17.7 Ratio 07/05/2015 Comp Metabolic Nkv548 CALCIUM 9.4 mg/dL 07/05/2015 Comp Metabolic Tvl707 ALK PHOS 77 U/L 07/05/2015 Comp Metabolic Eja246 AST(SGOT) 23 U/L 07/05/2015 Comp Metabolic Czy659 ALT(SGPT) 25 U/L 07/05/2015 Comp Metabolic Fmw223 BILI T 0.6 mg/dL 07/05/2015 Comp Metabolic Fqd958 ALBUMIN 4.0 g/dL 07/05/2015 Comp Metabolic Dwz672 TPRO 6.5 g/dL 07/05/2015 Comp Metabolic Dzq223 GLOB 2.5 g/dL 07/05/2015 Comp Metabolic Mmz430 A/G Ratio 1.6 Ratio 07/05/2015 Comp Metabolic Vxc650 Osmo 279 mOsmo 07/05/2015 Cbc With Differential [...] Differential Ord2 RDW 13.3 % 03/12/2015 %Hba1C Sqy779 % HbA1c 92812- 6 6.6 % 03/12/2015 %Hba1C Azl941 Gluc Ave 143 mg/dL 03/12/2015 Comp Metabolic Jup861 NA 135 mEq/L 03/12/2015 Comp Metabolic Xtu526 K 4.7 mEq/L 03/12/2015 Comp Metabolic Etp611 CL 98 mEq/L 03/12/2015 Comp Metabolic Vxg607 CO2 27.0 mEq/L 03/12/2015 Comp Metabolic Qtx462 ANION GAP 15 03/12/2015 Comp Metabolic Ljk076 GLUCOSE 232 mg/dL 03/12/2015 Comp Metabolic Idw381 Creat 0.8 mg/dL 03/12/2015 Comp Metabolic Fcj994 eGFR 104 ml/min/1.73m2 03/12/2015 Comp Metabolic Wuz441 BUN 19 mg/dL 03/12/2015 Comp Metabolic Ykp962 B/C Ratio 23.8 Ratio 03/12/2015 Comp Metabolic Yqq534 CALCIUM 9.2 mg/dL 03/12/2015 Comp Metabolic Esg048 ALK PHOS 74 U/L 03/12/2015 Comp Metabolic Dav253 AST(SGOT) 24 U/L 03/12/2015 Comp Metabolic Dne871 ALT(SGPT) 29 U/L 03/12/2015 Comp Metabolic Mgc206 BILI T 0.4 mg/dL 03/12/2015 Comp Metabolic Pjr319 ALBUMIN 4.2 g/dL 03/12/2015 Comp Metabolic Xay397 TPRO 6.5 g/dL 03/12/2015 Comp Metabolic Kqi414 GLOB 2.3 g/dL 03/12/2015 Comp Metabolic Ydw660 A/G Ratio 1.8 Ratio 03/12/2015 Comp Metabolic Juf897 Osmo 280 mOsmo 03/12/2015 Review of Systems [...] Codes Date URINALYSIS NONAUTO W/O SCOPE CPT-4: 48662 02/22/2016 Vital Signs Date Vital 11/05/2015 Blood [...] vision. Last eye exam January was told 06/03 no signs of diabetic retinopathy. headache Location [...] Directive data Encounters Encounter Performer Location Codes Date ([id number]) [id number] EST. 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 PATIENT, LEVEL IV Diagnosis: Encounter for follow-up examination after completed treatment for conditions other than malignant neoplasm[ICD10: Z09] Ashlyn Treviño MD, [facility] CPT-4: 34162 09/27/2015 ([id number]) 01596 EST. 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: E11.42] [facility] CPT-4: 82128 03/12/2015 ([id number]) OFFICE VISIT, NEW - LEVEL 4 Diagnosis: ESSENTIAL HYPERTENSION[ICD9: 401.9] Diagnosis: Osteoarthritis of knees, bilateral[ICD9: 715.96] Diagnosis: Diabetes mellitus[ICD9: 250.00] Diagnosis: Double vision[ICD9: 368.2] Diagnosis: ACUTE SINUSITIS[ICD9: 461.9] Florence Treviño MD, [facility] CPT-4: 97220 10/24/2014 Plan of Care Planned Activity Notes Codes Status Date Patient Education: Patient Medication Summary Completed 11/15/2018 Care Plan: Total Psa Pending 11/15/2018 Care Plan: Free T4 Pending 11/15/2018 Care Plan: Tsh Pending 11/15/2018 Care Plan: Lipid Pending 11/15/2018 Care Plan: %Hba1C LOINC : 54460-2 Pending 11/15/2018 Care Plan: Cbc With Differential Pending 11/15/2018 Care Plan: Comp Metabolic Pending 11/15/2018 Patient Education: Patient Medication Summary Completed 09/08/2018 Care Plan: Tsh Pending 09/08/2018 Care Plan: Free T4 Pending 09/08/2018 Appointment: [facility]val[facility] [phone] [phone] [place] (30 min) Complex 01/01/2017 Appointment: Nurse Visit 02/22/2016 Patient Education: Patient Medication Summary Completed 02/22/2016 Appointment: [facility] Ruvalcaba [facility] [phone] [phone] [place] (30 min) Complex 02/07/2016 App[facility]ment: [facility] [phone] [id number] [place] (15 min) Moderate 01/10/2016 Visit Plan: Diabetes [...] Pending 11/05/2015 Care Plan: %Hba1C LOINC : 95708-6 Pending 11/05/2015 Visit Plan: Hospital follow up [...] Hypertension Completed 03/12/2015 Appointment: Florence Treviño [facility]Ptel[id number] (30 min) Complex 01/24/2015 Visit Plan: HTN-elevated [...] this time 10/24/2014 Appointment: Graciel[facility] Ruvalcaba [facility] [phone] [phone] [place] New Patient 10/24/2014 Patient Education: Patient Medication Summary Completed 10/24/2014 Patient Education: Hypertension Completed 10/24/2014 Appointment: Florence Treviño WPtel[id number] [place] New Patient 09/25/2014 Instructions Comment [...]
--- OUTSIDE RECORDS SUMMARY | 2018-11-25 12:40 | XMS REPORT | CCD ---
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 Name Role Phone PP Unavailable CCM Unavailable Summary Purpose Interface Exchange Insurance Providers Payer name Policy type / Coverage type Covered republican ID Effective Begin Date Effective End Date [facility] [id number] 2015 Unknown Family history Father Diagnosis Age [...] Retired disabled 10/24/[address]: 4248036 Former smoker quit 1993 10/24/2014 Allergies, Adverse Reactions, Alerts Substance Reaction Codes Entered Date Inactivated Date Status * NO KNOWN FOOD ALLERGIES Unknown 10/24/2014 No Inactive Date Active ASPIRIN (TARTRAZINE ONLY) Unknown 10/24/2014 No Inactive Date Active Past Medical History Illness Codes Condition Status Onset Date Resolved Date Hypothryroidism Unknown Active 09/08/2018 Unknown Hypothyroidism, unspecified ICD-9: 244.9 ICD-10: E03.9 Active 09/08/2018 Unknown Dysuria ICD-9: 788.1 ICD-10: R30.0 Active 02/21/2016 Unknown Bilateral primary osteoarthritis of knee ICD-9: 715.96 ICD-10: M17.0 Active 10/23/2014 Unknown Essential (primary) hypertension ICD-9: 401.9 ICD-10: I10 Active 10/23/2014 Unknown Heart failure, unspecified ICD-9: 428.0 ICD-10: I50.9 Active 11/04/2015 Unknown Panniculitis, unspecified ICD-9: 729.30 ICD-10: M79.3 Active 11/04/2015 Unknown Type 2 diabetes mellitus with diabetic polyneuropathy ICD-9: 250.60 ICD-10: E11.42 Active 11/04/2015 Unknown Encounter for follow-up examination [...] Problems Condition Codes Effective Dates Condition Status Hypothryroidism Unknown 09/08/2018 Active Hypothyroidism, unspecified ICD-9: 244.9 ICD-10: E03.9 09/08/2018 Active Dysuria ICD-9: 788.1 ICD-10: R30.0 02/21/2016 Active Bilateral primary osteoarthritis of knee ICD-9: 715.96 ICD-10: M17.0 10/23/2014 Active Essential (primary) hypertension ICD-9: 401.9 ICD-10: I10 10/23/2014 Active Heart failure, unspecified ICD-9: 428.0 ICD-10: I50.9 11/04/2015 Active Panniculitis, unspecified ICD-9: 729.30 ICD-10: M79.3 11/04/2015 Active Type 2 diabetes mellitus with diabetic polyneuropathy ICD-9: 250.60 ICD-10: E11.42 11/04/2015 Active Encounter for follow-up examination after [...] Fill Instructions Keflex 500 mg capsule RxNorm: 913984 1 Capsule(s) PO TID 11/05/2018 11/14/2018 Active Take probiotic while on antibiotic hydrocodone 10 mg-acetaminophen 325 mg tablet RxNorm: 249587 2 Tablet(s) PO Q6 PRN 10/19/2018 11/09/2018 Active levothyroxine 50 mcg tablet RxNorm: 1 Tablet(s) PO daily 09/21/2018 01/18/2019 Active hydrocodone 10 mg-acetaminophen 325 mg tablet RxNorm: 135522 2 Tablet(s) PO Q6 PRN 09/07/2018 09/28/2018 Inactive hydrocodone 10 mg-acetaminophen 325 mg tablet RxNorm: 925959 2 Tablet(s) PO Q6 PRN 07/05/2018 07/26/2018 Inactive mupirocin 2 % topical ointment RxNorm: 840810 APPLY TO AFFECTED AREA(S) TWO TIMES A DAY 07/05/2018 07/26/2018 Inactive levothyroxine 25 mcg tablet RxNorm: 466397 1 Tablet(s) PO daily 06/03/2018 09/20/2018 Inactive levothyroxine 25 mcg tablet RxNorm: 598362 1 Tablet(s) PO daily 06/03/2018 06/02/2018 Inactive hydrocodone 10 mg-acetaminophen 325 mg tablet RxNorm: 394047 2 Tablet(s) PO Q6 PRN 05/25/2018 06/15/2018 Inactive hydrocodone 10 mg-acetaminophen 325 mg tablet RxNorm: 168686 2 Tablet(s) PO Q6 PRN 04/13/2018 05/04/2018 Inactive hydrocodone 10 mg-acetaminophen 325 mg tablet RxNorm: 587239 2 Tablet(s) PO Q6 PRN 03/12/2018 04/02/2018 Inactive potassium chloride ER 10 mEq tablet,extended release RxNorm: 721823 TAKE ONE TABLET BY MOUTH FOUR TIMES A WEEK NEEDED 02/24/2018 07/13/2018 Inactive Neurontin 800 mg tablet RxNorm: 526348 TAKE ONE TABLET BY MOUTH THREE TIMES A DAY 02/09/2018 05/09/2018 Inactive nystatin 100,000 unit/gram topical powder RxNorm: 984763 APPLY ONE GRAM TOPICALLY FOUR TIMES A DAY NEEDED 02/03/2018 02/14/2018 Inactive hydrocodone 10 mg-acetaminophen 325 mg tablet RxNorm: 161917 2 Tablet(s) PO Q6 PRN 01/26/2018 02/16/2018 Inactive Novolin 70/30 U-100 Insulin 100 unit/mL subcutaneous suspension RxNorm: 541420 INJECT 100 UNITS UNDER THE SKIN TWO TIMES A DAY 01/04/2018 05/03/2018 Inactive mupirocin 2 % topical ointment RxNorm: 719522 1 Gram(s) TOP BID to affected area 12/29/2017 07/04/2018 Inactive Levaquin 500 mg tablet RxNorm: 025417 1 Tablet(s) PO daily 12/29/2017 01/04/2018 Inactive mupirocin 2 % topical ointment RxNorm: 901462 1 Gram(s) TOP BID to affected area 12/28/2017 12/28/2017 Inactive Levaquin 500 mg tablet RxNorm: 862998 1 Tablet(s) PO daily 12/28/2017 12/28/2017 Inactive hydrocodone 10 mg-acetaminophen 325 mg tablet RxNorm: 295583 2 Tablet(s) PO Q6 PRN 12/28/2017 01/18/2018 Inactive Novolin 70/30 U-100 Insulin 100 unit/mL subcutaneous suspension RxNorm: 846443 INJECT 100 UNITS UNDER THE SKIN TWO TIMES A DAY 11/24/2017 12/13/2017 Inactive hydrocodone 10 mg-acetaminophen 325 mg tablet RxNorm: 888375 2 Tablet(s) PO Q6 PRN 11/02/2017 11/23/2017 Inactive nystatin 100,000 unit/gram topical powder RxNorm: 167665 APPLY ONE GRAM TOPICALLY FOUR TIMES A DAY NEEDED 10/22/2017 11/02/2017 Inactive hydrocodone 10 mg-acetaminophen 325 mg tablet RxNorm: 372241 2 Tablet(s) PO Q6 PRN 09/21/2017 10/12/2017 Inactive Levaquin 500 mg tablet RxNorm: 373853 1 Tablet(s) PO daily 09/04/2017 09/03/2017 Inactive Levaquin 500 mg tablet RxNorm: 183071 1 Tablet(s) PO daily 09/04/2017 09/10/2017 Inactive Keflex 500 mg capsule RxNorm: 702481 1 Capsule(s) PO daily 08/19/2017 08/18/2017 Inactive Take probiotic while on antibiotic hydrocodone 10 mg-acetaminophen 325 mg tablet RxNorm: 130728 2 Tablet(s) PO Q6 PRN 08/19/2017 09/09/2017 Inactive Keflex 500 mg capsule RxNorm: 887035 1 Capsule(s) PO QID 08/19/2017 12/27/2017 Inactive Take probiotic while on antibiotic mupirocin 2 % topical ointment RxNorm: 167511 1 Gram(s) TOP BID to affected area 08/19/2017 12/27/2017 Inactive hydrocodone 10 mg-acetaminophen 325 mg tablet RxNorm: 732986 2 Tablet(s) PO Q6 PRN 07/20/2017 08/10/2017 Inactive hydrocodone 10 mg-acetaminophen 325 mg tablet RxNorm: 118719 2 Tablet(s) PO Q6 PRN 06/12/2017 07/03/2017 Inactive ipratropium-albuterol 0.5 mg-3 mg(2.5 mg base)/3 mL nebulization soln RxNorm: 4710258 INHALE ONE VIAL VIA NEBULIZER EVERY 4 HOURS NEEDED FOR SHORTNESS OF BREATH 06/03/2017 No Stop Date Active hydrocodone 10 mg-acetaminophen 325 mg tablet RxNorm: 564211 2 Tablet(s) PO Q6 PRN 05/13/2017 06/03/2017 Inactive Lasix 80 mg tablet RxNorm: 698426 Tablet(s) TAKE ONE TABLET BY MOUTH DAILY 05/06/2017 11/01/2017 Inactive hydrocodone 10 mg-acetaminophen 325 mg tablet RxNorm: 752142 2 Tablet(s) PO Q6 PRN 04/13/2017 05/04/2017 Inactive hydrocodone 10 mg-acetaminophen 325 mg tablet RxNorm: 894129 2 Tablet(s) PO Q6 PRN 03/02/2017 03/23/2017 Inactive potassium chloride ER 10 mEq tablet,extended release RxNorm: 598572 TAKE ONE TABLET BY MOUTH FOUR TIMES A WEEK NEEDED 02/09/2017 03/22/2017 Inactive potassium chloride ER 10 mEq tablet,extended release RxNorm: 135022 TAKE ONE TABLET BY MOUTH FOUR TIMES A WEEK NEEDED 02/09/2017 02/08/2017 Inactive Neurontin 800 mg tablet RxNorm: 010454 TAKE ONE TABLET BY MOUTH THREE TIMES A DAY 01/20/2017 05/19/2017 Inactive hydrocodone 10 mg-acetaminophen 325 mg tablet RxNorm: 142777 2 Tablet(s) PO Q6 PRN 01/12/2017 02/02/2017 Inactive Lasix 80 mg tablet RxNorm: 449380 Tablet(s) TAKE ONE TABLET BY MOUTH DAILY 01/12/2017 03/12/2017 Inactive Novolin 70/30 U-100 Insulin 100 unit/mL subcutaneous suspension RxNorm: 957474 INJECT 100 UNITS UNDER THE SKIN TWO TIMES A DAY 01/09/2017 02/17/2017 Inactive Please contact prescriber by phone/fax. 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 Rejection Qcwz=850 Rejection uoolow=[id number] FAX FAILED: No local dialtone; too many attempts to dial Lasix 80 mg tablet RxNorm: 951638 Tablet(s) TAKE ONE TABLET BY MOUTH DAILY 01/06/2017 01/11/2017 Inactive hydrocodone 10 mg-acetaminophen 325 mg tablet RxNorm: 329737 2 Tablet(s) PO Q6 PRN 11/25/2016 12/16/2016 Inactive nystatin 100,000 unit/gram topical powder RxNorm: 447786 1 Gram(s) TOP QID as needed 11/25/2016 10/21/2017 Inactive hydrocodone 10 mg-acetaminophen 325 mg tablet RxNorm: 081362 2 Tablet(s) PO Q6 PRN 10/30/2016 11/20/2016 Inactive hydrocodone 10 mg-acetaminophen 325 mg tablet RxNorm: 974849 2 Tablet(s) PO Q6 PRN 10/01/2016 10/22/2016 Inactive hydrocodone 10 mg-acetaminophen 325 mg tablet RxNorm: 083703 2 Tablet(s) PO Q6 PRN 09/01/2016 09/22/2016 Inactive Novolin 70/30 100 unit/mL subcutaneous suspension RxNorm: 720161 INJECT 100 UNITS UNDER THE SKIN TWO TIMES A DAY 08/21/2016 09/04/2016 Inactive hydrocodone 10 mg-acetaminophen 325 mg tablet RxNorm: 482015 2 Tablet(s) PO Q6 PRN 07/29/2016 08/19/2016 Inactive hydrocodone 10 mg-acetaminophen 325 mg tablet RxNorm: 778752 2 Tablet(s) PO Q6 PRN 06/30/2016 07/21/2016 Inactive Neurontin 800 mg tablet RxNorm: 206808 1 Tablet(s) PO TID 06/23/2016 12/19/2016 Inactive glyburide 5 mg tablet RxNorm: 660506 TAKE ONE TABLET BY MOUTH TWICE A DAY 06/12/2016 09/09/2016 Inactive hydrocodone 10 mg-acetaminophen 325 mg tablet RxNorm: 922859 2 Tablet(s) PO Q6 PRN 05/16/2016 06/06/2016 Inactive morphine ER 15 mg tablet,extended release RxNorm: 269302 1 Tablet(s) 15mg IR PO BID as needed 05/13/2016 06/11/2016 Inactive nystatin 100,000 unit/gram topical powder RxNorm: 298590 1 Gram(s) TOP QID as needed 05/13/2016 11/24/2016 Inactive gemfibrozil 600 mg tablet RxNorm: 607589 TAKE ONE TABLET BY MOUTH TWICE A DAY 05/05/2016 10/31/2016 Inactive hydrocodone 10 mg-acetaminophen 325 mg tablet RxNorm: 002076 2 Tablet(s) PO Q6 PRN 04/18/2016 05/09/2016 Inactive Keflex 500 mg capsule RxNorm: 253643 1 Capsule(s) PO TID 04/15/2016 06/22/2016 Inactive Keflex 500 mg capsule RxNorm: 847013 1 Capsule(s) PO TID 04/15/2016 04/14/2016 Inactive hydrocodone 10 mg-acetaminophen 325 mg tablet RxNorm: 257244 2 Tablet(s) PO Q6 PRN 03/19/2016 04/17/2016 Inactive captopril 100 mg tablet RxNorm: 032129 TAKE ONE TABLET BY MOUTH TWICE A DAY 03/03/2016 06/30/2016 Inactive gemfibrozil 600 mg tablet RxNorm: 751596 TAKE ONE TABLET BY MOUTH TWICE A DAY 03/03/2016 05/01/2016 Inactive hydrocodone 10 mg-acetaminophen 325 mg tablet RxNorm: 962981 2 Tablet(s) PO Q6 PRN 02/28/2016 03/18/2016 Inactive Cipro 500 mg tablet RxNorm: 792514 1 Tablet(s) PO BID 02/21/2016 02/27/2016 Inactive [SAVINGS FOR NON-COVERED DRUGS -- BIN:209752, PCN: ASPROD1, Group: XXXXX, ID# [id number], Questions: . THIS IS NOT INSURANCE.] hydrocodone 10 mg-acetaminophen 325 mg tablet RxNorm: 701615 2 Tablet(s) PO Q6 PRN 02/01/2016 02/27/2016 Inactive hydrocodone 10 mg-acetaminophen 325 mg tablet RxNorm: 684812 2 Tablet(s) PO Q6 PRN 01/08/2016 01/31/2016 Inactive Lasix 80 mg tablet RxNorm: 314446 TAKE ONE TABLET BY MOUTH DAILY 12/18/2015 01/16/2016 Inactive Request already responded to by other means (e.g. phone or fax) gemfibrozil 600 mg tablet RxNorm: 118880 TAKE ONE TABLET BY MOUTH TWICE A DAY 12/18/2015 03/02/2016 Inactive Request already responded to by other means (e.g. phone or fax) glyburide 5 mg tablet RxNorm: 046296 TAKE ONE TABLET BY MOUTH TWICE A DAY 12/18/2015 01/16/2016 Inactive Request already responded to by other means (e.g. phone or fax) glyburide 5 mg tablet RxNorm: 736004 TAKE ONE TABLET BY MOUTH TWICE A DAY 12/14/2015 02/11/2016 Inactive gemfibrozil 600 mg tablet RxNorm: 253831 TAKE ONE TABLET BY MOUTH TWICE A DAY 12/14/2015 03/12/2016 Inactive potassium chloride ER 10 mEq tablet,extended release RxNorm: 010188 TAKE ONE TABLET BY MOUTH DAILY 12/14/2015 02/23/2018 Inactive potassium chloride ER 10 mEq tablet,extended release RxNorm: 943452 TAKE ONE TABLET BY MOUTH DAILY 12/14/2015 01/12/2016 Inactive Lasix 80 mg tablet RxNorm: 379540 TAKE ONE TABLET BY MOUTH DAILY 12/14/2015 02/11/2016 Inactive Neurontin 800 mg tablet RxNorm: 489258 1 Tablet(s) PO TID 12/10/2015 06/06/2016 Inactive morphine ER 15 mg tablet,extended release RxNorm: 150154 1 Tablet(s) 15mg IR PO BID as needed 12/03/2015 01/01/2016 Inactive Neurontin 800 mg tablet RxNorm: 123040 1 Tablet(s) PO TID 11/05/2015 12/09/2015 Inactive hydrocodone 10 mg-acetaminophen 325 mg tablet RxNorm: 842535 2 Tablet(s) PO Q6 PRN 10/23/2015 01/07/2016 Inactive hydrocodone 10 mg-acetaminophen 325 mg tablet RxNorm: 677954 2 Tablet(s) PO Q6 PRN 10/02/2015 10/22/2015 Inactive Neurontin 800 mg tablet RxNorm: 782742 1 Tablet(s) PO TID 09/27/2015 11/04/2015 Inactive Diflucan 150 mg tablet RxNorm: 680638 1 Tablet(s) PO daily 09/06/2015 09/05/2015 Inactive Keflex 500 mg capsule RxNorm: 203667 1 Capsule(s) PO TID 09/06/2015 12/09/2015 Inactive Diflucan 150 mg tablet RxNorm: 860600 1 Tablet(s) PO daily 09/06/2015 12/09/2015 Inactive Keflex 500 mg capsule RxNorm: 972208 1 Capsule(s) PO TID 09/06/2015 09/05/2015 Inactive Novolin 70/30 100 unit/mL subcutaneous suspension RxNorm: 797688 INJECT 100 UNITS UNDER THE SKIN TWO TIMES A DAY 08/20/2015 11/07/2015 Inactive morphine ER 15 mg tablet,extended release RxNorm: 302162 1 Tablet(s) 15mg IR PO BID as needed 08/08/2015 11/04/2015 Inactive Novolin 70/30 100 unit/mL subcutaneous suspension RxNorm: 304116 100 Unit(s) SQ BID 07/10/2015 08/08/2015 Inactive Novolin 70/30 100 unit/mL subcutaneous solution RxNorm: 299256 100 Unit(s) SQ BID 07/10/2015 07/09/2015 Inactive Mobic 15 mg tablet RxNorm: 070778 1 Tablet(s) PO daily 07/05/2015 12/31/2015 Inactive captopril 100 mg tablet RxNorm: 418726 1 Tablet(s) PO BID 07/05/2015 12/31/2015 Inactive Lopid 600 mg tablet RxNorm: 714126 1 Tablet(s) PO BID 07/05/2015 No Stop Date Active hydrocodone 10 mg-acetaminophen 325 mg tablet RxNorm: 101007 2 Tablet(s) PO Q6 PRN 07/05/2015 10/01/2015 Inactive Neurontin 800 mg tablet RxNorm: 309368 1 Tablet(s) PO TID 07/05/2015 09/26/2015 Inactive Humulin 70/30 100 unit/mL subcutaneous suspension RxNorm: 791119 100 100 Unit(s) SQ BID 07/05/2015 07/09/2015 Inactive may dispense 30 or 90 day supply Lyrica 75 mg capsule RxNorm: 560309 1 Capsule(s) PO BID 07/05/2015 07/04/2015 Inactive glyburide 5 mg tablet RxNorm: 078330 1 Tablet(s) PO BID 07/05/2015 12/13/2015 Inactive potassium chloride ER 10 mEq tablet,extended release RxNorm: 315456 1 Tablet(s) PO daily 07/05/2015 12/13/2015 Inactive Lasix 80 mg tablet RxNorm: 534244 1 Tablet(s) PO daily 07/05/2015 12/13/2015 Inactive Lyrica 75 mg capsule RxNorm: 045382 1 Capsule(s) PO BID 07/05/2015 11/04/2015 Inactive morphine ER 15 mg tablet,extended release RxNorm: 701310 1 Tablet(s) 15mg IR PO BID as needed 07/05/2015 08/03/2015 Inactive morphine 15 mg capsule RxNorm: 131736 1 Capsule(s) 15mg IR PO BID as needed 06/25/2015 07/04/2015 Inactive morphine 15 mg capsule RxNorm: 685580 1 Capsule(s) 15mg IR PO BID as needed 05/24/2015 06/22/2015 Inactive morphine 15 mg capsule RxNorm: 411275 1 Capsule(s) 15mg IR PO BID as needed 04/16/2015 05/14/2015 Inactive gemfibrozil 600 mg tablet RxNorm: 276550 1 Tablet(s) PO BID 04/11/2015 07/05/2015 Inactive Glucophage 1,000 mg tablet RxNorm: 346541 1 Tablet(s) PO BID 03/12/2015 03/05/2016 Inactive captopril 100 mg tablet RxNorm: 145890 1 Tablet(s) PO BID 03/12/2015 07/04/2015 Inactive potassium chloride ER 10 mEq tablet,extended release RxNorm: 603639 1 Tablet(s) PO daily 03/12/2015 07/04/2015 Inactive glyburide 5 mg tablet RxNorm: 690163 1 Tablet(s) PO BID 03/12/2015 07/04/2015 Inactive Mobic 15 mg tablet RxNorm: 908456 1 Tablet(s) PO daily 03/12/2015 07/04/2015 Inactive morphine 15 mg capsule RxNorm: 303247 1 Capsule(s) 15mg IR PO BID as needed 03/12/2015 04/10/2015 Inactive hydrocodone 10 mg-acetaminophen 325 mg tablet RxNorm: 711868 2 Tablet(s) PO Q6 PRN 03/12/2015 07/04/2015 Inactive Neurontin 800 mg tablet RxNorm: 673937 1 Tablet(s) PO TID 03/12/2015 06/09/2015 Inactive morphine 15 mg capsule RxNorm: 549823 1 Capsule(s) 15mg IR PO BID as needed 02/09/2015 03/10/2015 Inactive Glucophage 1,000 mg tablet RxNorm: 398744 1 Tablet(s) PO BID 01/31/2015 03/11/2015 Inactive Glucophage 1,000 mg tablet RxNorm: 904650 1 Tablet(s) PO BID 01/15/2015 01/30/2015 Inactive morphine 15 mg capsule RxNorm: 046659 1 Capsule(s) 15mg IR PO BID as needed 01/11/2015 02/08/2015 Inactive hydrocodone 10 mg-acetaminophen 325 mg tablet RxNorm: 507599 2 Tablet(s) PO Q6 PRN 01/11/2015 03/11/2015 Inactive morphine 15 mg capsule RxNorm: 128343 1 Capsule(s) 15mg IR PO BID as needed 12/13/2014 01/10/2015 Inactive morphine 15 mg capsule RxNorm: 954792 1 Capsule(s) PO BID as needed 12/08/2014 12/07/2014 Inactive morphine 15 mg capsule RxNorm: 185324 1 Capsule(s) PO BID as needed 12/08/2014 12/12/2014 Inactive hydrocodone 10 mg-acetaminophen 325 mg tablet RxNorm: 546539 2 Tablet(s) PO Q6 PRN 10/27/2014 01/10/2015 Inactive clindamycin 150 mg capsule RxNorm: 986911 1 Capsule(s) PO QID 10/24/2014 11/02/2014 Inactive hydrocodone 10 mg-acetaminophen 325 mg tablet RxNorm: 255415 1 Tablet(s) PO Q6 PRN 10/24/2014 10/26/2014 Inactive Cipro 500 mg tablet RxNorm: 864937 1 Tablet(s) PO BID 09/08/2014 09/17/2014 Inactive [SAVINGS FOR NON-COVERED DRUGS -- BIN:122126, PCN: ASPROD1, Group: XXXXX, ID# [id number], Questions: . THIS IS NOT INSURANCE.] Flagyl 500 mg tablet RxNorm: 678381 1 Tablet(s) PO TID 09/08/2014 09/17/2014 Inactive [SAVINGS FOR NON-COVERED DRUGS -- BIN:152886, PCN: ASPROD1, Group: XXXXX, ID# [id number], Questions: . THIS IS NOT INSURANCE.] Flagyl 500 mg tablet RxNorm: 523657 1 Tablet(s) PO TID 09/08/2014 09/07/2014 Inactive Cipro 500 mg tablet RxNorm: 504960 1 Tablet(s) PO BID 09/08/2014 09/07/2014 Inactive Promethazine VC-Codeine 6.25 mg-5 mg-10 mg/5 mL syrup RxNorm: 104935 to 10 Milliliter(s) PO Q6 No Start Date Active multivitamin oral RxNorm: 93119 oral No Start Date Active Fish Oil capsule RxNorm: Capsule(s) PO 1200 mg No Start Date Active melatonin 5 mg tablet RxNorm: 097800 2 Tablet(s) PO QHS No Start Date Active vitamin E 1,000 unit tablet RxNorm: 479139 oral No Start Date Active Calcium 600 + D(3) oral RxNorm: 858667 oral No Start Date Active Multiple Vitamins Daily oral RxNorm: 55628 oral No Start Date Active oxycodone 10 mg tablet RxNorm: 0803353 1 Tablet(s) PO Q6 PRN No Start Date Active Lopid 600 mg tablet RxNorm: 195723 1 Tablet(s) PO BID No Start Date 04/10/2015 Inactive vitamin J18-pcoilyl B1 intramuscular RxNorm: 00936 intramuscular No Start Date 11/04/2015 Inactive Mobic 15 mg tablet RxNorm: 014388 1 Tablet(s) PO daily No Start Date 03/11/2015 Inactive Vitamin D3 2,000 unit capsule RxNorm: 295305 1 Capsule(s) PO daily No Start Date 11/04/2015 Inactive Vitamin C 1,000 mg tablet RxNorm: 723563 1 Tablet(s) PO daily No Start Date 11/04/2015 Inactive captopril 100 mg tablet RxNorm: 604549 1 Tablet(s) PO BID No Start Date 03/11/2015 Inactive nystatin 100,000 unit/gram topical powder RxNorm: 383326 1 Gram(s) TOP QID as needed No Start Date 05/12/2016 Inactive Neurontin 800 mg tablet RxNorm: 224724 1 Tablet(s) PO TID No Start Date 03/11/2015 Inactive mupirocin 2 % topical ointment RxNorm: 863984 1 Gram(s) TOP BID to affected area No Start Date 08/18/2017 Inactive KCL 20 meq RxNorm: 1 Tablet(s) PO daily No Start Date 03/11/2015 Inactive Lasix 80 mg tablet RxNorm: 551099 1 Tablet(s) PO daily No Start Date 07/04/2015 Inactive ipratropium-albuterol 0.5 mg-3 mg(2.5 mg base)/3 mL nebulization soln RxNorm: 4683638 INHALE ONE VIAL VIA NEBULIZER EVERY 4 HOURS NEEDED FOR SHORTNESS OF BREATH No Start Date 06/02/2017 Inactive Lyrica 75 mg capsule RxNorm: 899811 1 Capsule(s) PO BID No Start Date 07/04/2015 Inactive glyburide 5 mg tablet RxNorm: 979212 1 Tablet(s) PO BID No Start Date 03/11/2015 Inactive hydrocodone 10 mg-acetaminophen 325 mg tablet RxNorm: 172505 1 Tablet(s) PO Q6 PRN No Start Date 10/23/2014 Inactive Glucophage 1,000 mg tablet RxNorm: 007180 2 Tablet(s) PO daily No Start Date 01/14/2015 Inactive Humulin 70/30 100 unit/mL subcutaneous suspension RxNorm: 969745 100 Unit(s) SQ BID No Start Date 07/04/2015 Inactive Medication Administered No Medication Administered data Immunizations No Immunization data Assessments Condition Codes Effective Dates Hypothyroidism, unspecified ICD-10: E03.9 ICD-9: 244.9 09/08/2018 Dysuria ICD-10: R30.0 ICD-9: 788.1 02/22/2016 Essential (primary) hypertension ICD-10: I10 ICD-9: 401.9 11/05/2015 Bilateral primary osteoarthritis of knee ICD-10: M17.0 ICD-9: 715.96 11/05/2015 Panniculitis, unspecified ICD-10: M79.3 ICD-9: 729.30 11/05/2015 Type 2 diabetes mellitus with diabetic polyneuropathy ICD-10: E11.42 ICD-9: 250.60 11/05/2015 Heart failure, unspecified ICD-10: I50.9 ICD-9: [...] Code Item Item Code Result Date %Hba1C Hdn010 % HbA1c 52512- 6 7.3 % 07/05/2015 %Hba1C Wec146 Gluc Ave 163 mg/dL 07/05/2015 Cbc With [...] 30.5 pg 07/05/2015 Cbc With Differential Ord2 [place]% 8.1 % 07/05/2015 Cbc With Differential Ord2 [...] 1.65 K/ul 07/05/2015 Cbc With Differential Ord2 [place] ABS# 0.7 K/ul 07/05/2015 Cbc With Differential Ord2 Eos ABS# 0.4 K/ul 07/05/2015 Cbc With Differential Ord2 Baso ABS# 0.0 K/ul 07/05/2015 Cbc With Differential Ord2 New Analyzer Notice Please note new ref ranges starting 05-30-2015 due to implemntation of new five part differential hematolgy analyzer. 07/05/2015 Tsh Ord6 hTSH II 1.45 uIU/mL 07/05/2015 Total Psa Ord10 PSA 0.14 ng/mL 07/05/2015 Comp Metabolic Nub051 NA 138 mEq/L 07/05/2015 Comp Metabolic Ffj013 K 4.7 mEq/L 07/05/2015 Comp Metabolic Pfh825 CL 101 mEq/L 07/05/2015 Comp Metabolic Cxz257 CO2 27.0 mEq/L 07/05/2015 Comp Metabolic Pxd877 ANION GAP 15 07/05/2015 Comp Metabolic Vbx938 GLUCOSE 152 mg/dL 07/05/2015 Comp Metabolic Rgg520 Creat 0.8 mg/dL 07/05/2015 Comp Metabolic Ywz912 eGFR 106 ml/min/1.73m2 07/05/2015 Comp Metabolic Znq272 BUN 14 mg/dL 07/05/2015 Comp Metabolic Wco950 B/C Ratio 17.7 Ratio 07/05/2015 Comp Metabolic Tkd955 CALCIUM 9.4 mg/dL 07/05/2015 Comp Metabolic Wuv769 ALK PHOS 77 U/L 07/05/2015 Comp Metabolic Jcl001 AST(SGOT) 23 U/L 07/05/2015 Comp Metabolic Txh320 ALT(SGPT) 25 U/L 07/05/2015 Comp Metabolic Fwg356 BILI T 0.6 mg/dL 07/05/2015 Comp Metabolic Ird939 ALBUMIN 4.0 g/dL 07/05/2015 Comp Metabolic Alx352 TPRO 6.5 g/dL 07/05/2015 Comp Metabolic Eeg515 GLOB 2.5 g/dL 07/05/2015 Comp Metabolic Bpo501 A/G Ratio 1.6 Ratio 07/05/2015 Comp Metabolic Vvs841 Osmo 279 mOsmo 07/05/2015 Cbc With Differential [...] Differential Ord2 RDW 13.3 % 03/12/2015 %Hba1C Wba236 % HbA1c 28438- 6 6.6 % 03/12/2015 %Hba1C Rud444 Gluc Ave 143 mg/dL 03/12/2015 Comp Metabolic Zjn767 NA 135 mEq/L 03/12/2015 Comp Metabolic Fcn535 K 4.7 mEq/L 03/12/2015 Comp Metabolic Glr646 CL 98 mEq/L 03/12/2015 Comp Metabolic Byr807 CO2 27.0 mEq/L 03/12/2015 Comp Metabolic Vak762 ANION GAP 15 03/12/2015 Comp Metabolic Oze981 GLUCOSE 232 mg/dL 03/12/2015 Comp Metabolic Gmu469 Creat 0.8 mg/dL 03/12/2015 Comp Metabolic Cew053 eGFR 104 ml/min/1.73m2 03/12/2015 Comp Metabolic Oaj176 BUN 19 mg/dL 03/12/2015 Comp Metabolic Lly221 B/C Ratio 23.8 Ratio 03/12/2015 Comp Metabolic Eah002 CALCIUM 9.2 mg/dL 03/12/2015 Comp Metabolic Lxx649 ALK PHOS 74 U/L 03/12/2015 Comp Metabolic Yss725 AST(SGOT) 24 U/L 03/12/2015 Comp Metabolic Uqd183 ALT(SGPT) 29 U/L 03/12/2015 Comp Metabolic Ofx041 BILI T 0.4 mg/dL 03/12/2015 Comp Metabolic Ztt288 ALBUMIN 4.2 g/dL 03/12/2015 Comp Metabolic Wfl448 TPRO 6.5 g/dL 03/12/2015 Comp Metabolic Vca069 GLOB 2.3 g/dL 03/12/2015 Comp Metabolic Rix536 A/G Ratio 1.8 Ratio 03/12/2015 Comp Metabolic Dro963 Osmo 280 mOsmo 03/12/2015 Review of Systems [...] Codes Date URINALYSIS NONAUTO W/O SCOPE CPT-4: 04956 02/22/2016 Vital Signs Date Vital 11/05/2015 Blood [...] data Encounters Encounter Performer Location Codes Date ([id number]) [id number] EST. PATIENT, LEVEL IV Diagnosis: Type 2 diabetes mellitus with diabetic polyneuropathy[ICD10: E11.42] Diagnosis: Essential (primary) hypertension[ICD10: I10] Diagnosis: Panniculitis, unspecified[ICD10: M79.3] Diagnosis: Bilateral primary osteoarthritis of knee[ICD10: M17.0] Diagnosis: Heart failure, unspecified[ICD10: I50.9] [facility] CPT-4: 98513 11/05/2015 [id number] EST. PATIENT, LEVEL IV Diagnosis: Encounter for follow-up examination after completed treatment for conditions other than malignant neoplasm[ICD10: Z09] [facility] CPT-4: 61613 09/27/2015 ([id number]) [id number] EST. PATIENT, LEVEL IV Diagnosis: Type 2 diabetes mellitus with diabetic polyneuropathy[ICD10: E11.42] Diagnosis: Essential (primary) hypertension[ICD10: I10] Diagnosis: Chronic pain syndrome[ICD10: G89.4] [facility] CPT-4: 91022 07/05/2015 ([id number]) [id number] EST. 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] Diagnosis: ACUTE SINUSITIS[ICD9: 461.9] [facility] CPT-4: 27536 10/24/2014 Plan of Care Planned Activity Notes Codes Status Date Patient Education: Patient Medication Summary Completed 09/08/2018 Care Plan: Tsh Pending 09/08/2018 Care Plan: Free T4 Pending 09/08/2018 Appointment: Graciela Ruvalcaba WPtel: [address] [place], [place] [phone] (30 min) Complex 01/01/2017 Appointment: Nurse Visit 02/22/2016 Patient Education: Patient Medication Summary Completed 02/22/2016 Appointment: Graciela Ruvalcaba WPtel: [address] [place], [place] [phone] (30 min) Complex 02/07/2016 Appointment: Florence Treviño WPtel: [address] [place], [place] [id number] (15 min) Moderate 01/10/2016 Visit Plan: Diabetes [...] Pending 11/05/2015 Care Plan: %Hba1C LOINC : 48004-5 Pending 11/05/2015 Visit Plan: Hospital follow up [...] Hypertension Completed 03/12/2015 Appointment: Florence Treviño WPtel: [phone] [phone] (30 min) Complex 01/24/2015 Visit Plan: HTN-elevated [...] this time 10/24/2014 Appointment: Graciela Ruvalcaba WPtel: [phone] [place] New Patient 10/24/2014 Patient Education: Patient Medication Summary Completed 10/24/2014 Patient Education: Hypertension Completed 10/24/2014 Appointment: Florence [facility]ño WPtel[id number] [place] New Patient 09/25/2014 Instructions [...]
--- OUTSIDE RECORDS SUMMARY | 2018-11-25 12:41 | XMS REPORT | CCD ---
Author Author Florence Terviño Organization Florence Treviño MD, [facility] Address [address] [place] [address] Phone Care Team Providers Care Flex O Writer Operator Name Role Phone PP Unavailable CCM Unavailable Summary Purpose Interface Exchange Insurance Providers Payer name Policy type / Coverage type Covered libertarian ID Effective Begin Date Effective End Date [facility] [id number] 2015 Unknown Family history Father Diagnosis Age [...] Retired disabled 10/24/[address]: [id number] Former smoker quit 1993 10/24/2014 Allergies, Adverse [...] Start Date Stop Date Status Fill Instructions hydrocodone 10 mg-acetaminophen 325 mg tablet RxNorm: 616720 2 Tablet(s) PO Q6 PRN 10/19/2018 11/09/2018 Active levothyroxine 50 mcg tablet RxNorm: 1 Tablet(s) PO daily 09/21/2018 01/18/2019 Active hydrocodone 10 mg-acetaminophen 325 mg tablet RxNorm: 542662 2 Tablet(s) PO Q6 PRN 09/07/2018 09/28/2018 Inactive hydrocodone 10 mg-acetaminophen 325 mg tablet RxNorm: 905635 2 Tablet(s) PO Q6 PRN 07/05/2018 07/26/2018 Inactive mupirocin 2 % topical ointment RxNorm: 082518 APPLY TO AFFECTED AREA(S) TWO TIMES A DAY 07/05/2018 07/26/2018 Inactive levothyroxine 25 mcg tablet RxNorm: 133165 1 Tablet(s) PO daily 06/03/2018 09/20/2018 Inactive levothyroxine 25 mcg tablet RxNorm: 795992 1 Tablet(s) PO daily 06/03/2018 06/02/2018 Inactive hydrocodone 10 mg-acetaminophen 325 mg tablet RxNorm: 978168 2 Tablet(s) PO Q6 PRN 05/25/2018 06/15/2018 Inactive hydrocodone 10 mg-acetaminophen 325 mg tablet RxNorm: 203128 2 Tablet(s) PO Q6 PRN 04/13/2018 05/04/2018 Inactive hydrocodone 10 mg-acetaminophen 325 mg tablet RxNorm: 097936 2 Tablet(s) PO Q6 PRN 03/12/2018 04/02/2018 Inactive potassium chloride ER 10 mEq tablet,extended release RxNorm: 315147 TAKE ONE TABLET BY MOUTH FOUR TIMES A WEEK NEEDED 02/24/2018 07/13/2018 Inactive Neurontin 800 mg tablet RxNorm: 959964 TAKE ONE TABLET BY MOUTH THREE TIMES A DAY 02/09/2018 05/09/2018 Inactive nystatin 100,000 unit/gram topical powder RxNorm: 896717 APPLY ONE GRAM TOPICALLY FOUR TIMES A DAY NEEDED 02/03/2018 02/14/2018 Inactive hydrocodone 10 mg-acetaminophen 325 mg tablet RxNorm: 014034 2 Tablet(s) PO Q6 PRN 01/26/2018 02/16/2018 Inactive Novolin 70/30 U-100 Insulin 100 unit/mL subcutaneous suspension RxNorm: 475679 INJECT 100 UNITS UNDER THE SKIN TWO TIMES A DAY 01/04/2018 05/03/2018 Inactive mupirocin 2 % topical ointment RxNorm: 077489 1 Gram(s) TOP BID to affected area 12/29/2017 07/04/2018 Inactive Levaquin 500 mg tablet RxNorm: 668048 1 Tablet(s) PO daily 12/29/2017 01/04/2018 Inactive mupirocin 2 % topical ointment RxNorm: 057693 1 Gram(s) TOP BID to affected area 12/28/2017 12/28/2017 Inactive Levaquin 500 mg tablet RxNorm: 113106 1 Tablet(s) PO daily 12/28/2017 12/28/2017 Inactive hydrocodone 10 mg-acetaminophen 325 mg tablet RxNorm: 028349 2 Tablet(s) PO Q6 PRN 12/28/2017 01/18/2018 Inactive Novolin 70/30 U-100 Insulin 100 unit/mL subcutaneous suspension RxNorm: 170685 INJECT 100 UNITS UNDER THE SKIN TWO TIMES A DAY 11/24/2017 12/13/2017 Inactive hydrocodone 10 mg-acetaminophen 325 mg tablet RxNorm: 233893 2 Tablet(s) PO Q6 PRN 11/02/2017 11/23/2017 Inactive nystatin 100,000 unit/gram topical powder RxNorm: 508013 APPLY ONE GRAM TOPICALLY FOUR TIMES A DAY NEEDED 10/22/2017 11/02/2017 Inactive hydrocodone 10 mg-acetaminophen 325 mg tablet RxNorm: 379755 2 Tablet(s) PO Q6 PRN 09/21/2017 10/12/2017 Inactive Levaquin 500 mg tablet RxNorm: 589756 1 Tablet(s) PO daily 09/04/2017 09/03/2017 Inactive Levaquin 500 mg tablet RxNorm: 262877 1 Tablet(s) PO daily 09/04/2017 09/10/2017 Inactive Keflex 500 mg capsule RxNorm: 812876 1 Capsule(s) PO daily 08/19/2017 08/18/2017 Inactive Take probiotic while on antibiotic hydrocodone 10 mg-acetaminophen 325 mg tablet RxNorm: 225375 2 Tablet(s) PO Q6 PRN 08/19/2017 09/09/2017 Inactive Keflex 500 mg capsule RxNorm: 870778 1 Capsule(s) PO QID 08/19/2017 12/27/2017 Inactive Take probiotic while on antibiotic mupirocin 2 % topical ointment RxNorm: 622221 1 Gram(s) TOP BID to affected area 08/19/2017 12/27/2017 Inactive hydrocodone 10 mg-acetaminophen 325 mg tablet RxNorm: 579410 2 Tablet(s) PO Q6 PRN 07/20/2017 08/10/2017 Inactive hydrocodone 10 mg-acetaminophen 325 mg tablet RxNorm: 186229 2 Tablet(s) PO Q6 PRN 06/12/2017 07/03/2017 Inactive ipratropium-albuterol 0.5 mg-3 mg(2.5 mg base)/3 mL nebulization soln RxNorm: 9304320 INHALE ONE VIAL VIA NEBULIZER EVERY 4 HOURS NEEDED FOR SHORTNESS OF BREATH 06/03/2017 No Stop Date Active hydrocodone 10 mg-acetaminophen 325 mg tablet RxNorm: 949191 2 Tablet(s) PO Q6 PRN 05/13/2017 06/03/2017 Inactive Lasix 80 mg tablet RxNorm: 501481 Tablet(s) TAKE ONE TABLET BY MOUTH DAILY 05/06/2017 11/01/2017 Inactive hydrocodone 10 mg-acetaminophen 325 mg tablet RxNorm: 363128 2 Tablet(s) PO Q6 PRN 04/13/2017 05/04/2017 Inactive hydrocodone 10 mg-acetaminophen 325 mg tablet RxNorm: 743299 2 Tablet(s) PO Q6 PRN 03/02/2017 03/23/2017 Inactive potassium chloride ER 10 mEq tablet,extended release RxNorm: 324922 TAKE ONE TABLET BY MOUTH FOUR TIMES A WEEK NEEDED 02/09/2017 03/22/2017 Inactive potassium chloride ER 10 mEq tablet,extended release RxNorm: 589105 TAKE ONE TABLET BY MOUTH FOUR TIMES A WEEK NEEDED 02/09/2017 02/08/2017 Inactive Neurontin 800 mg tablet RxNorm: 513579 TAKE ONE TABLET BY MOUTH THREE TIMES A DAY 01/20/2017 05/19/2017 Inactive hydrocodone 10 mg-acetaminophen 325 mg tablet RxNorm: 594898 2 Tablet(s) PO Q6 PRN 01/12/2017 02/02/2017 Inactive Lasix 80 mg tablet RxNorm: 334532 Tablet(s) TAKE ONE TABLET BY MOUTH DAILY 01/12/2017 03/12/2017 Inactive Novolin 70/30 U-100 Insulin 100 unit/mL subcutaneous suspension RxNorm: 257025 INJECT 100 UNITS UNDER THE SKIN TWO TIMES A DAY 01/09/2017 02/17/2017 Inactive Please contact prescriber by phone/fax. 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 to Knowledge Management Advisor unable to process Rejection [id number] Rejection ocmuzo=[id number] FAX FAILED: No local dialtone; too many attempts to dial Lasix 80 mg tablet RxNorm: 777399 Tablet(s) TAKE ONE TABLET BY MOUTH DAILY 01/06/2017 01/11/2017 Inactive hydrocodone 10 mg-acetaminophen 325 mg tablet RxNorm: 615957 2 Tablet(s) PO Q6 PRN 11/25/2016 12/16/2016 Inactive nystatin 100,000 unit/gram topical powder RxNorm: 334365 1 Gram(s) TOP QID as needed 11/25/2016 10/21/2017 Inactive hydrocodone 10 mg-acetaminophen 325 mg tablet RxNorm: 706530 2 Tablet(s) PO Q6 PRN 10/30/2016 11/20/2016 Inactive hydrocodone 10 mg-acetaminophen 325 mg tablet RxNorm: 842585 2 Tablet(s) PO Q6 PRN 10/01/2016 10/22/2016 Inactive hydrocodone 10 mg-acetaminophen 325 mg tablet RxNorm: 945330 2 Tablet(s) PO Q6 PRN 09/01/2016 09/22/2016 Inactive Novolin 70/30 100 unit/mL subcutaneous suspension RxNorm: 896091 INJECT 100 UNITS UNDER THE SKIN TWO TIMES A DAY 08/21/2016 09/04/2016 Inactive hydrocodone 10 mg-acetaminophen 325 mg tablet RxNorm: 300821 2 Tablet(s) PO Q6 PRN 07/29/2016 08/19/2016 Inactive hydrocodone 10 mg-acetaminophen 325 mg tablet RxNorm: 171543 2 Tablet(s) PO Q6 PRN 06/30/2016 07/21/2016 Inactive Neurontin 800 mg tablet RxNorm: 147759 1 Tablet(s) PO TID 06/23/2016 12/19/2016 Inactive glyburide 5 mg tablet RxNorm: 230603 TAKE ONE TABLET BY MOUTH TWICE A DAY 06/12/2016 09/09/2016 Inactive hydrocodone 10 mg-acetaminophen 325 mg tablet RxNorm: 025493 2 Tablet(s) PO Q6 PRN 05/16/2016 06/06/2016 Inactive morphine ER 15 mg tablet,extended release RxNorm: 610741 1 Tablet(s) 15mg IR PO BID as needed 05/13/2016 06/11/2016 Inactive nystatin 100,000 unit/gram topical powder RxNorm: 315184 1 Gram(s) TOP QID as needed 05/13/2016 11/24/2016 Inactive gemfibrozil 600 mg tablet RxNorm: 860494 TAKE ONE TABLET BY MOUTH TWICE A DAY 05/05/2016 10/31/2016 Inactive hydrocodone 10 mg-acetaminophen 325 mg tablet RxNorm: 050590 2 Tablet(s) PO Q6 PRN 04/18/2016 05/09/2016 Inactive Keflex 500 mg capsule RxNorm: 547859 1 Capsule(s) PO TID 04/15/2016 06/22/2016 Inactive Keflex 500 mg capsule RxNorm: 866265 1 Capsule(s) PO TID 04/15/2016 04/14/2016 Inactive hydrocodone 10 mg-acetaminophen 325 mg tablet RxNorm: 970691 2 Tablet(s) PO Q6 PRN 03/19/2016 04/17/2016 Inactive captopril 100 mg tablet RxNorm: 834741 TAKE ONE TABLET BY MOUTH TWICE A DAY 03/03/2016 06/30/2016 Inactive gemfibrozil 600 mg tablet RxNorm: 287420 TAKE ONE TABLET BY MOUTH TWICE A DAY 03/03/2016 05/01/2016 Inactive hydrocodone 10 mg-acetaminophen 325 mg tablet RxNorm: 694280 2 Tablet(s) PO Q6 PRN 02/28/2016 03/18/2016 Inactive Cipro 500 mg tablet RxNorm: 321692 1 Tablet(s) PO BID 02/21/2016 02/27/2016 Inactive [SAVINGS FOR NON-COVERED DRUGS -- BIN:413516, PCN: ASPROD1, Group: XXXXX, ID# [id number], Questions: . THIS IS NOT INSURANCE.] hydrocodone 10 mg-acetaminophen 325 mg tablet RxNorm: 893423 2 Tablet(s) PO Q6 PRN 02/01/2016 02/27/2016 Inactive hydrocodone 10 mg-acetaminophen 325 mg tablet RxNorm: 714997 2 Tablet(s) PO Q6 PRN 01/08/2016 01/31/2016 Inactive Lasix 80 mg tablet RxNorm: 440749 TAKE ONE TABLET BY MOUTH DAILY 12/18/2015 01/16/2016 Inactive Request already responded to by other means (e.g. phone or fax) gemfibrozil 600 mg tablet RxNorm: 665942 TAKE ONE TABLET BY MOUTH TWICE A DAY 12/18/2015 03/02/2016 Inactive Request already responded to by other means (e.g. phone or fax) glyburide 5 mg tablet RxNorm: 949995 TAKE ONE TABLET BY MOUTH TWICE A DAY 12/18/2015 01/16/2016 Inactive Request already responded to by other means (e.g. phone or fax) glyburide 5 mg tablet RxNorm: 231692 TAKE ONE TABLET BY MOUTH TWICE A DAY 12/14/2015 02/11/2016 Inactive gemfibrozil 600 mg tablet RxNorm: 882553 TAKE ONE TABLET BY MOUTH TWICE A DAY 12/14/2015 03/12/2016 Inactive potassium chloride ER 10 mEq tablet,extended release RxNorm: 595381 TAKE ONE TABLET BY MOUTH DAILY 12/14/2015 02/23/2018 Inactive potassium chloride ER 10 mEq tablet,extended release RxNorm: 120847 TAKE ONE TABLET BY MOUTH DAILY 12/14/2015 01/12/2016 Inactive Lasix 80 mg tablet RxNorm: 873472 TAKE ONE TABLET BY MOUTH DAILY 12/14/2015 02/11/2016 Inactive Neurontin 800 mg tablet RxNorm: 530133 1 Tablet(s) PO TID 12/10/2015 06/06/2016 Inactive morphine ER 15 mg tablet,extended release RxNorm: 370126 1 Tablet(s) 15mg IR PO BID as needed 12/03/2015 01/01/2016 Inactive Neurontin 800 mg tablet RxNorm: 565766 1 Tablet(s) PO TID 11/05/2015 12/09/2015 Inactive hydrocodone 10 mg-acetaminophen 325 mg tablet RxNorm: 881200 2 Tablet(s) PO Q6 PRN 10/23/2015 01/07/2016 Inactive hydrocodone 10 mg-acetaminophen 325 mg tablet RxNorm: 770924 2 Tablet(s) PO Q6 PRN 10/02/2015 10/22/2015 Inactive Neurontin 800 mg tablet RxNorm: 928741 1 Tablet(s) PO TID 09/27/2015 11/04/2015 Inactive Diflucan 150 mg tablet RxNorm: 984877 1 Tablet(s) PO daily 09/06/2015 09/05/2015 Inactive Keflex 500 mg capsule RxNorm: 431425 1 Capsule(s) PO TID 09/06/2015 12/09/2015 Inactive Diflucan 150 mg tablet RxNorm: 916496 1 Tablet(s) PO daily 09/06/2015 12/09/2015 Inactive Keflex 500 mg capsule RxNorm: 282677 1 Capsule(s) PO TID 09/06/2015 09/05/2015 Inactive Novolin 70/30 100 unit/mL subcutaneous suspension RxNorm: 527631 INJECT 100 UNITS UNDER THE SKIN TWO TIMES A DAY 08/20/2015 11/07/2015 Inactive morphine ER 15 mg tablet,extended release RxNorm: 003340 1 Tablet(s) 15mg IR PO BID as needed 08/08/2015 11/04/2015 Inactive Novolin 70/30 100 unit/mL subcutaneous suspension RxNorm: 535986 100 Unit(s) SQ BID 07/10/2015 08/08/2015 Inactive Novolin 70/30 100 unit/mL subcutaneous solution RxNorm: 283076 100 Unit(s) SQ BID 07/10/2015 07/09/2015 Inactive Mobic 15 mg tablet RxNorm: 921195 1 Tablet(s) PO daily 07/05/2015 12/31/2015 Inactive captopril 100 mg tablet RxNorm: 309959 1 Tablet(s) PO BID 07/05/2015 12/31/2015 Inactive Lopid 600 mg tablet RxNorm: 688863 1 Tablet(s) PO BID 07/05/2015 No Stop Date Active hydrocodone 10 mg-acetaminophen 325 mg tablet RxNorm: 691486 2 Tablet(s) PO Q6 PRN 07/05/2015 10/01/2015 Inactive Neurontin 800 mg tablet RxNorm: 879661 1 Tablet(s) PO TID 07/05/2015 09/26/2015 Inactive Humulin 70/30 100 unit/mL subcutaneous suspension RxNorm: 852337 100 100 Unit(s) SQ BID 07/05/2015 07/09/2015 Inactive may dispense 30 or 90 day supply Lyrica 75 mg capsule RxNorm: 568263 1 Capsule(s) PO BID 07/05/2015 07/04/2015 Inactive glyburide 5 mg tablet RxNorm: 453019 1 Tablet(s) PO BID 07/05/2015 12/13/2015 Inactive potassium chloride ER 10 mEq tablet,extended release RxNorm: 999059 1 Tablet(s) PO daily 07/05/2015 12/13/2015 Inactive Lasix 80 mg tablet RxNorm: 536715 1 Tablet(s) PO daily 07/05/2015 12/13/2015 Inactive Lyrica 75 mg capsule RxNorm: 855881 1 Capsule(s) PO BID 07/05/2015 11/04/2015 Inactive morphine ER 15 mg tablet,extended release RxNorm: 824720 1 Tablet(s) 15mg IR PO BID as needed 07/05/2015 08/03/2015 Inactive morphine 15 mg capsule RxNorm: 950474 1 Capsule(s) 15mg IR PO BID as needed 06/25/2015 07/04/2015 Inactive morphine 15 mg capsule RxNorm: 432333 1 Capsule(s) 15mg IR PO BID as needed 05/24/2015 06/22/2015 Inactive morphine 15 mg capsule RxNorm: 963077 1 Capsule(s) 15mg IR PO BID as needed 04/16/2015 05/14/2015 Inactive gemfibrozil 600 mg tablet RxNorm: 022995 1 Tablet(s) PO BID 04/11/2015 07/05/2015 Inactive Glucophage 1,000 mg tablet RxNorm: 145931 1 Tablet(s) PO BID 03/12/2015 03/05/2016 Inactive captopril 100 mg tablet RxNorm: 595498 1 Tablet(s) PO BID 03/12/2015 07/04/2015 Inactive potassium chloride ER 10 mEq tablet,extended release RxNorm: 382789 1 Tablet(s) PO daily 03/12/2015 07/04/2015 Inactive glyburide 5 mg tablet RxNorm: 867078 1 Tablet(s) PO BID 03/12/2015 07/04/2015 Inactive Mobic 15 mg tablet RxNorm: 152704 1 Tablet(s) PO daily 03/12/2015 07/04/2015 Inactive morphine 15 mg capsule RxNorm: 974195 1 Capsule(s) 15mg IR PO BID as needed 03/12/2015 04/10/2015 Inactive hydrocodone 10 mg-acetaminophen 325 mg tablet RxNorm: 662344 2 Tablet(s) PO Q6 PRN 03/12/2015 07/04/2015 Inactive Neurontin 800 mg tablet RxNorm: 875933 1 Tablet(s) PO TID 03/12/2015 06/09/2015 Inactive morphine 15 mg capsule RxNorm: 504169 1 Capsule(s) 15mg IR PO BID as needed 02/09/2015 03/10/2015 Inactive Glucophage 1,000 mg tablet RxNorm: 835118 1 Tablet(s) PO BID 01/31/2015 03/11/2015 Inactive Glucophage 1,000 mg tablet RxNorm: 645039 1 Tablet(s) PO BID 01/15/2015 01/30/2015 Inactive morphine 15 mg capsule RxNorm: 525365 1 Capsule(s) 15mg IR PO BID as needed 01/11/2015 02/08/2015 Inactive hydrocodone 10 mg-acetaminophen 325 mg tablet RxNorm: 517860 2 Tablet(s) PO Q6 PRN 01/11/2015 03/11/2015 Inactive morphine 15 mg capsule RxNorm: 478937 1 Capsule(s) 15mg IR PO BID as needed 12/13/2014 01/10/2015 Inactive morphine 15 mg capsule RxNorm: 353968 1 Capsule(s) PO BID as needed 12/08/2014 12/07/2014 Inactive morphine 15 mg capsule RxNorm: 176857 1 Capsule(s) PO BID as needed 12/08/2014 12/12/2014 Inactive hydrocodone 10 mg-acetaminophen 325 mg tablet RxNorm: 638659 2 Tablet(s) PO Q6 PRN 10/27/2014 01/10/2015 Inactive clindamycin 150 mg capsule RxNorm: 410998 1 Capsule(s) PO QID 10/24/2014 11/02/2014 Inactive hydrocodone 10 mg-acetaminophen 325 mg tablet RxNorm: 686089 1 Tablet(s) PO Q6 PRN 10/24/2014 10/26/2014 Inactive Cipro 500 mg tablet RxNorm: 667454 1 Tablet(s) PO BID 09/08/2014 09/17/2014 Inactive [SAVINGS FOR NON-COVERED DRUGS -- BIN:752061, PCN: ASPROD1, Group: XXXXX, ID# [id number], Questions: . THIS IS NOT INSURANCE.] Flagyl 500 mg tablet RxNorm: 639818 1 Tablet(s) PO TID 09/08/2014 09/17/2014 Inactive [SAVINGS FOR NON-COVERED DRUGS -- BIN:001654, PCN: ASPROD1, Group: XXXXX, ID# [id number], Questions: . THIS IS NOT INSURANCE.] Flagyl 500 mg tablet RxNorm: 925995 1 Tablet(s) PO TID 09/08/2014 09/07/2014 Inactive Cipro 500 mg tablet RxNorm: 954963 1 Tablet(s) PO BID 09/08/2014 09/07/2014 Inactive Promethazine VC-Codeine 6.25 mg-5 mg-10 mg/5 mL syrup RxNorm: 663757 to 10 Milliliter(s) PO Q6 No Start Date Active multivitamin oral RxNorm: 43089 oral No Start Date Active Fish Oil capsule RxNorm: Capsule(s) PO 1200 mg No Start Date Active melatonin 5 mg tablet RxNorm: 556205 2 Tablet(s) PO QHS No Start Date Active vitamin E 1,000 unit tablet RxNorm: 014309 oral No Start Date Active Calcium 600 + D(3) oral RxNorm: 766961 oral No Start Date Active Multiple Vitamins Daily oral RxNorm: 20530 oral No Start Date Active oxycodone 10 mg tablet RxNorm: 4095183 1 Tablet(s) PO Q6 PRN No Start Date Active Lopid 600 mg tablet RxNorm: 903501 1 Tablet(s) PO BID No Start Date 04/10/2015 Inactive vitamin Q13-zjmpkma B1 intramuscular RxNorm: 21646 intramuscular No Start Date 11/04/2015 Inactive Mobic 15 mg tablet RxNorm: 666881 1 Tablet(s) PO daily No Start Date 03/11/2015 Inactive Vitamin D3 2,000 unit capsule RxNorm: 256922 1 Capsule(s) PO daily No Start Date 11/04/2015 Inactive Vitamin C 1,000 mg tablet RxNorm: 231560 1 Tablet(s) PO daily No Start Date 11/04/2015 Inactive captopril 100 mg tablet RxNorm: 221527 1 Tablet(s) PO BID No Start Date 03/11/2015 Inactive nystatin 100,000 unit/gram topical powder RxNorm: 791800 1 Gram(s) TOP QID as needed No Start Date 05/12/2016 Inactive Neurontin 800 mg tablet RxNorm: 949902 1 Tablet(s) PO TID No Start Date 03/11/2015 Inactive mupirocin 2 % topical ointment RxNorm: 737323 1 Gram(s) TOP BID to affected area No Start Date 08/18/2017 Inactive KCL 20 meq RxNorm: 1 Tablet(s) PO daily No Start Date 03/11/2015 Inactive Lasix 80 mg tablet RxNorm: 046624 1 Tablet(s) PO daily No Start Date 07/04/2015 Inactive ipratropium-albuterol 0.5 mg-3 mg(2.5 mg base)/3 mL nebulization soln RxNorm: 4676752 INHALE ONE VIAL VIA NEBULIZER EVERY 4 HOURS NEEDED FOR SHORTNESS OF BREATH No Start Date 06/02/2017 Inactive Lyrica 75 mg capsule RxNorm: 799489 1 Capsule(s) PO BID No Start Date 07/04/2015 Inactive glyburide 5 mg tablet RxNorm: 352723 1 Tablet(s) PO BID No Start Date 03/11/2015 Inactive hydrocodone 10 mg-acetaminophen 325 mg tablet RxNorm: 155407 1 Tablet(s) PO Q6 PRN No Start Date 10/23/2014 Inactive Glucophage 1,000 mg tablet RxNorm: 230475 2 Tablet(s) PO daily No Start Date 01/14/2015 Inactive Humulin 70/30 100 unit/mL subcutaneous suspension RxNorm: 074138 100 Unit(s) SQ BID No Start Date [...] Code Item Item Code Result Date %Hba1C Hbr994 % HbA1c 77569- 6 7.3 % 07/05/2015 %Hba1C Ggc550 Gluc Ave 163 mg/dL 07/05/2015 Cbc With [...] 30.5 pg 07/05/2015 Cbc With Differential Ord2 [place]% 8.1 % 07/05/2015 Cbc With Differential Ord2 [...] 1.65 K/ul 07/05/2015 Cbc With Differential Ord2 [place] ABS# 0.7 K/ul 07/05/2015 Cbc With Differential Ord2 Eos ABS# 0.4 K/ul 07/05/2015 Cbc With Differential Ord2 Baso ABS# 0.0 K/ul 07/05/2015 Cbc With Differential Ord2 New Analyzer Notice Please note new ref ranges starting 05-30-2015 due to implemntation of new five part differential hematolgy analyzer. 07/05/2015 Tsh Ord6 hTSH II 1.45 uIU/mL 07/05/2015 Total Psa Ord10 PSA 0.14 ng/mL 07/05/2015 Comp Metabolic Loh318 NA 138 mEq/L 07/05/2015 Comp Metabolic Ggd447 K 4.7 mEq/L 07/05/2015 Comp Metabolic Jni918 CL 101 mEq/L 07/05/2015 Comp Metabolic Kty871 CO2 27.0 mEq/L 07/05/2015 Comp Metabolic Hbx243 ANION GAP 15 07/05/2015 Comp Metabolic Nun344 GLUCOSE 152 mg/dL 07/05/2015 Comp Metabolic Hbk766 Creat 0.8 mg/dL 07/05/2015 Comp Metabolic Eit040 eGFR 106 ml/min/1.73m2 07/05/2015 Comp Metabolic Mog870 BUN 14 mg/dL 07/05/2015 Comp Metabolic Duw017 B/C Ratio 17.7 Ratio 07/05/2015 Comp Metabolic Hmn300 CALCIUM 9.4 mg/dL 07/05/2015 Comp Metabolic Drq491 ALK PHOS 77 U/L 07/05/2015 Comp Metabolic Yjn949 AST(SGOT) 23 U/L 07/05/2015 Comp Metabolic Khd934 ALT(SGPT) 25 U/L 07/05/2015 Comp Metabolic Ani281 BILI T 0.6 mg/dL 07/05/2015 Comp Metabolic Kmd837 ALBUMIN 4.0 g/dL 07/05/2015 Comp Metabolic Ujq287 TPRO 6.5 g/dL 07/05/2015 Comp Metabolic Nvo928 GLOB 2.5 g/dL 07/05/2015 Comp Metabolic Ddd168 A/G Ratio 1.6 Ratio 07/05/2015 Comp Metabolic Bmt875 Osmo 279 mOsmo 07/05/2015 Cbc With Differential [...] Differential Ord2 RDW 13.3 % 03/12/2015 %Hba1C Toc999 % HbA1c 34621- 6 6.6 % 03/12/2015 %Hba1C Huf082 Gluc Ave 143 mg/dL 03/12/2015 Comp Metabolic Stz909 NA 135 mEq/L 03/12/2015 Comp Metabolic Ugi877 K 4.7 mEq/L 03/12/2015 Comp Metabolic Rvo101 CL 98 mEq/L 03/12/2015 Comp Metabolic Gua218 CO2 27.0 mEq/L 03/12/2015 Comp Metabolic Gwm682 ANION GAP 15 03/12/2015 Comp Metabolic Jjh040 GLUCOSE 232 mg/dL 03/12/2015 Comp Metabolic Cer304 Creat 0.8 mg/dL 03/12/2015 Comp Metabolic Qzk887 eGFR 104 ml/min/1.73m2 03/12/2015 Comp Metabolic Qps088 BUN 19 mg/dL 03/12/2015 Comp Metabolic Igf716 B/C Ratio 23.8 Ratio 03/12/2015 Comp Metabolic Yfb503 CALCIUM 9.2 mg/dL 03/12/2015 Comp Metabolic Kye850 ALK PHOS 74 U/L 03/12/2015 Comp Metabolic Uok393 AST(SGOT) 24 U/L 03/12/2015 Comp Metabolic Ibl441 ALT(SGPT) 29 U/L 03/12/2015 Comp Metabolic Krp346 BILI T 0.4 mg/dL 03/12/2015 Comp Metabolic Gbg242 ALBUMIN 4.2 g/dL 03/12/2015 Comp Metabolic Rfw670 TPRO 6.5 g/dL 03/12/2015 Comp Metabolic Yjd463 GLOB 2.3 g/dL 03/12/2015 Comp Metabolic Yig612 A/G Ratio 1.8 Ratio 03/12/2015 Comp Metabolic Clm266 Osmo 280 mOsmo 03/12/2015 Review of Systems [...] Codes Date URINALYSIS NONAUTO W/O SCOPE CPT-4: 68404 02/22/2016 Vital Signs Date Vital 11/05/2015 Blood [...] data Encounters Encounter Performer Location Codes Date [id number]) [id number] EST. 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 PATIENT, LEVEL IV Diagnosis: Encounter for follow-up examination after completed treatment for conditions other than malignant neoplasm[ICD10: Z09] [facility] CPT-4: 32386 09/27/2015 [id number]) [id number] EST. 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: E11.42] Graciela Treviño MD, [facility] CPT-4: 21647 03/12/2015 ([id number]) OFFICE VISIT, NEW - LEVEL 4 Diagnosis: ESSENTIAL HYPERTENSION[ICD9: 401.9] Diagnosis: Osteoarthritis of knees, bilateral[ICD9: 715.96] Diagnosis: Diabetes mellitus[ICD9: 250.00] Diagnosis: Double vision[ICD9: 368.2] Diagnosis: ACUTE SINUSITIS[ICD9: 461.9] Florence Treviño MD, [facility] CPT-4: 91189 10/24/2014 Plan of Care Planned Activity Notes Codes Status Date Patient Education: Patient Medication Summary Completed 09/08/2018 Care Plan: Tsh Pending 09/08/2018 Care Plan: Free T4 Pending 09/08/2018 Appointment: Graciela Ruvalcaba WPtel: [phone] (30 min) Complex 01/01/2017 Appointment: Nurse Visit 02/22/2016 Patient Education: Patient Medication Summary Completed 02/22/2016 Appointment: Graciela Ruvalcaba WPtel: [address] [place], [place] [phone] (30 min) Complex 02/07/2016 Appointment: Florence Treviño WPtel: [phone] (15 min) Moderate 01/10/2016 Visit Plan: Diabetes [...] Pending 11/05/2015 Care Plan: %Hba1C LOINC : 19998-4 Pending 11/05/2015 Visit Plan: Hospital follow up [...] Hypertension Completed 03/12/2015 Appointment: Florence Treviño WPtel: [phone] [phone] (30 min) Complex 01/24/2015 Visit Plan: [...] this time 10/24/2014 Appointment: Graciela Ruvalcaba WPtel: [phone] [place] New Patient 10/24/2014 Patient Education: Patient Medication Summary Completed 10/24/2014 Patient Education: Hypertension Completed 10/24/2014 Appointment: Florence Treviño WPtel: [phone] [place] New Patient 09/25/2014 Instructions [...]
--- OUTSIDE RECORDS SUMMARY | 2018-11-25 12:43 | XMS REPORT | CCD ---
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 Name Role Phone PP Unavailable CCM Unavailable Summary Purpose Interface Exchange Insurance Providers Payer name Policy type / Coverage type Covered republican ID Effective Begin Date Effective End Date [facility] [id number] 2015 Unknown Family history Father Diagnosis Age [...] Retired disabled 10/24/[address]: 6043665 Former smoker quit 1993 10/24/2014 Allergies, Adverse [...] Start Date Stop Date Status Fill Instructions levothyroxine 50 mcg tablet RxNorm: 1 Tablet(s) PO daily 09/21/2018 01/18/2019 Active hydrocodone 10 mg-acetaminophen 325 mg tablet RxNorm: 667524 2 Tablet(s) PO Q6 PRN 09/07/2018 09/28/2018 Active hydrocodone 10 mg-acetaminophen 325 mg tablet RxNorm: 261632 2 Tablet(s) PO Q6 PRN 07/05/2018 07/26/2018 Inactive mupirocin 2 % topical ointment RxNorm: 184452 APPLY TO AFFECTED AREA(S) TWO TIMES A DAY 07/05/2018 07/26/2018 Inactive levothyroxine 25 mcg tablet RxNorm: 677156 1 Tablet(s) PO daily 06/03/2018 09/20/2018 Inactive levothyroxine 25 mcg tablet RxNorm: 761906 1 Tablet(s) PO daily 06/03/2018 06/02/2018 Inactive hydrocodone 10 mg-acetaminophen 325 mg tablet RxNorm: 452427 2 Tablet(s) PO Q6 PRN 05/25/2018 06/15/2018 Inactive hydrocodone 10 mg-acetaminophen 325 mg tablet RxNorm: 577969 2 Tablet(s) PO Q6 PRN 04/13/2018 05/04/2018 Inactive hydrocodone 10 mg-acetaminophen 325 mg tablet RxNorm: 931949 2 Tablet(s) PO Q6 PRN 03/12/2018 04/02/2018 Inactive potassium chloride ER 10 mEq tablet,extended release RxNorm: 646894 TAKE ONE TABLET BY MOUTH FOUR TIMES A WEEK NEEDED 02/24/2018 07/13/2018 Inactive Neurontin 800 mg tablet RxNorm: 583892 TAKE ONE TABLET BY MOUTH THREE TIMES A DAY 02/09/2018 05/09/2018 Inactive nystatin 100,000 unit/gram topical powder RxNorm: 548005 APPLY ONE GRAM TOPICALLY FOUR TIMES A DAY NEEDED 02/03/2018 02/14/2018 Inactive hydrocodone 10 mg-acetaminophen 325 mg tablet RxNorm: 060264 2 Tablet(s) PO Q6 PRN 01/26/2018 02/16/2018 Inactive Novolin 70/30 U-100 Insulin 100 unit/mL subcutaneous suspension RxNorm: 564592 INJECT 100 UNITS UNDER THE SKIN TWO TIMES A DAY 01/04/2018 05/03/2018 Inactive mupirocin 2 % topical ointment RxNorm: 387583 1 Gram(s) TOP BID to affected area 12/29/2017 07/04/2018 Inactive Levaquin 500 mg tablet RxNorm: 859321 1 Tablet(s) PO daily 12/29/2017 01/04/2018 Inactive mupirocin 2 % topical ointment RxNorm: 717120 1 Gram(s) TOP BID to affected area 12/28/2017 12/28/2017 Inactive Levaquin 500 mg tablet RxNorm: 842283 1 Tablet(s) PO daily 12/28/2017 12/28/2017 Inactive hydrocodone 10 mg-acetaminophen 325 mg tablet RxNorm: 640707 2 Tablet(s) PO Q6 PRN 12/28/2017 01/18/2018 Inactive Novolin 70/30 U-100 Insulin 100 unit/mL subcutaneous suspension RxNorm: 921338 INJECT 100 UNITS UNDER THE SKIN TWO TIMES A DAY 11/24/2017 12/13/2017 Inactive hydrocodone 10 mg-acetaminophen 325 mg tablet RxNorm: 760667 2 Tablet(s) PO Q6 PRN 11/02/2017 11/23/2017 Inactive nystatin 100,000 unit/gram topical powder RxNorm: 671200 APPLY ONE GRAM TOPICALLY FOUR TIMES A DAY NEEDED 10/22/2017 11/02/2017 Inactive hydrocodone 10 mg-acetaminophen 325 mg tablet RxNorm: 938661 2 Tablet(s) PO Q6 PRN 09/21/2017 10/12/2017 Inactive Levaquin 500 mg tablet RxNorm: 005603 1 Tablet(s) PO daily 09/04/2017 09/03/2017 Inactive Levaquin 500 mg tablet RxNorm: 191590 1 Tablet(s) PO daily 09/04/2017 09/10/2017 Inactive Keflex 500 mg capsule RxNorm: 984265 1 Capsule(s) PO daily 08/19/2017 08/18/2017 Inactive Take probiotic while on antibiotic hydrocodone 10 mg-acetaminophen 325 mg tablet RxNorm: 845069 2 Tablet(s) PO Q6 PRN 08/19/2017 09/09/2017 Inactive Keflex 500 mg capsule RxNorm: 579810 1 Capsule(s) PO QID 08/19/2017 12/27/2017 Inactive Take probiotic while on antibiotic mupirocin 2 % topical ointment RxNorm: 600712 1 Gram(s) TOP BID to affected area 08/19/2017 12/27/2017 Inactive hydrocodone 10 mg-acetaminophen 325 mg tablet RxNorm: 626850 2 Tablet(s) PO Q6 PRN 07/20/2017 08/10/2017 Inactive hydrocodone 10 mg-acetaminophen 325 mg tablet RxNorm: 521482 2 Tablet(s) PO Q6 PRN 06/12/2017 07/03/2017 Inactive ipratropium-albuterol 0.5 mg-3 mg(2.5 mg base)/3 mL nebulization soln RxNorm: 0328248 INHALE ONE VIAL VIA NEBULIZER EVERY 4 HOURS NEEDED FOR SHORTNESS OF BREATH 06/03/2017 No Stop Date Active hydrocodone 10 mg-acetaminophen 325 mg tablet RxNorm: 182002 2 Tablet(s) PO Q6 PRN 05/13/2017 06/03/2017 Inactive Lasix 80 mg tablet RxNorm: 297420 Tablet(s) TAKE ONE TABLET BY MOUTH DAILY 05/06/2017 11/01/2017 Inactive hydrocodone 10 mg-acetaminophen 325 mg tablet RxNorm: 260782 2 Tablet(s) PO Q6 PRN 04/13/2017 05/04/2017 Inactive hydrocodone 10 mg-acetaminophen 325 mg tablet RxNorm: 979489 2 Tablet(s) PO Q6 PRN 03/02/2017 03/23/2017 Inactive potassium chloride ER 10 mEq tablet,extended release RxNorm: 924269 TAKE ONE TABLET BY MOUTH FOUR TIMES A WEEK NEEDED 02/09/2017 03/22/2017 Inactive potassium chloride ER 10 mEq tablet,extended release RxNorm: 192635 TAKE ONE TABLET BY MOUTH FOUR TIMES A WEEK NEEDED 02/09/2017 02/08/2017 Inactive Neurontin 800 mg tablet RxNorm: 855318 TAKE ONE TABLET BY MOUTH THREE TIMES A DAY 01/20/2017 05/19/2017 Inactive hydrocodone 10 mg-acetaminophen 325 mg tablet RxNorm: 474971 2 Tablet(s) PO Q6 PRN 01/12/2017 02/02/2017 Inactive Lasix 80 mg tablet RxNorm: 189228 Tablet(s) TAKE ONE TABLET BY MOUTH DAILY 01/12/2017 03/12/2017 Inactive Novolin 70/30 U-100 Insulin 100 unit/mL subcutaneous suspension RxNorm: 574099 INJECT 100 UNITS UNDER THE SKIN TWO TIMES A DAY 01/09/2017 02/17/2017 Inactive Please contact prescriber by phone/fax. 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 to L[employer] Cementer unable to process Rejection Skyp=[id number] Rejection [id number] FAX FAILED: No local dialtone; too many attempts to dial Lasix 80 mg tablet RxNorm: 358952 Tablet(s) TAKE ONE TABLET BY MOUTH DAILY 01/06/2017 01/11/2017 Inactive hydrocodone 10 mg-acetaminophen 325 mg tablet RxNorm: 086019 2 Tablet(s) PO Q6 PRN 11/25/2016 12/16/2016 Inactive nystatin 100,000 unit/gram topical powder RxNorm: 514132 1 Gram(s) TOP QID as needed 11/25/2016 10/21/2017 Inactive hydrocodone 10 mg-acetaminophen 325 mg tablet RxNorm: 948020 2 Tablet(s) PO Q6 PRN 10/30/2016 11/20/2016 Inactive hydrocodone 10 mg-acetaminophen 325 mg tablet RxNorm: 208043 2 Tablet(s) PO Q6 PRN 10/01/2016 10/22/2016 Inactive hydrocodone 10 mg-acetaminophen 325 mg tablet RxNorm: 993222 2 Tablet(s) PO Q6 PRN 09/01/2016 09/22/2016 Inactive Novolin 70/30 100 unit/mL subcutaneous suspension RxNorm: 105665 INJECT 100 UNITS UNDER THE SKIN TWO TIMES A DAY 08/21/2016 09/04/2016 Inactive hydrocodone 10 mg-acetaminophen 325 mg tablet RxNorm: 152292 2 Tablet(s) PO Q6 PRN 07/29/2016 08/19/2016 Inactive hydrocodone 10 mg-acetaminophen 325 mg tablet RxNorm: 825292 2 Tablet(s) PO Q6 PRN 06/30/2016 07/21/2016 Inactive Neurontin 800 mg tablet RxNorm: 445910 1 Tablet(s) PO TID 06/23/2016 12/19/2016 Inactive glyburide 5 mg tablet RxNorm: 885328 TAKE ONE TABLET BY MOUTH TWICE A DAY 06/12/2016 09/09/2016 Inactive hydrocodone 10 mg-acetaminophen 325 mg tablet RxNorm: 244525 2 Tablet(s) PO Q6 PRN 05/16/2016 06/06/2016 Inactive morphine ER 15 mg tablet,extended release RxNorm: 323224 1 Tablet(s) 15mg IR PO BID as needed 05/13/2016 06/11/2016 Inactive nystatin 100,000 unit/gram topical powder RxNorm: 163140 1 Gram(s) TOP QID as needed 05/13/2016 11/24/2016 Inactive gemfibrozil 600 mg tablet RxNorm: 547044 TAKE ONE TABLET BY MOUTH TWICE A DAY 05/05/2016 10/31/2016 Inactive hydrocodone 10 mg-acetaminophen 325 mg tablet RxNorm: 213581 2 Tablet(s) PO Q6 PRN 04/18/2016 05/09/2016 Inactive Keflex 500 mg capsule RxNorm: 330819 1 Capsule(s) PO TID 04/15/2016 06/22/2016 Inactive Keflex 500 mg capsule RxNorm: 597071 1 Capsule(s) PO TID 04/15/2016 04/14/2016 Inactive hydrocodone 10 mg-acetaminophen 325 mg tablet RxNorm: 927847 2 Tablet(s) PO Q6 PRN 03/19/2016 04/17/2016 Inactive captopril 100 mg tablet RxNorm: 744287 TAKE ONE TABLET BY MOUTH TWICE A DAY 03/03/2016 06/30/2016 Inactive gemfibrozil 600 mg tablet RxNorm: 826885 TAKE ONE TABLET BY MOUTH TWICE A DAY 03/03/2016 05/01/2016 Inactive hydrocodone 10 mg-acetaminophen 325 mg tablet RxNorm: 734629 2 Tablet(s) PO Q6 PRN 02/28/2016 03/18/2016 Inactive Cipro 500 mg tablet RxNorm: 959905 1 Tablet(s) PO BID 02/21/2016 02/27/2016 Inactive [SAVINGS FOR NON-COVERED DRUGS -- BIN:763330, N: [id number], Group: XXXXX, ID# [id number], Questions: . THIS IS NOT INSURANCE.] hydrocodone 10 mg-acetaminophen 325 mg tablet RxNorm: 496554 2 Tablet(s) PO Q6 PRN 02/01/2016 02/27/2016 Inactive hydrocodone 10 mg-acetaminophen 325 mg tablet RxNorm: 299428 2 Tablet(s) PO Q6 PRN 01/08/2016 01/31/2016 Inactive Lasix 80 mg tablet RxNorm: 421024 TAKE ONE TABLET BY MOUTH DAILY 12/18/2015 01/16/2016 Inactive Request already responded to by other means (e.g. phone or fax) gemfibrozil 600 mg tablet RxNorm: 126300 TAKE ONE TABLET BY MOUTH TWICE A DAY 12/18/2015 03/02/2016 Inactive Request already responded to by other means (e.g. phone or fax) glyburide 5 mg tablet RxNorm: 010610 TAKE ONE TABLET BY MOUTH TWICE A DAY 12/18/2015 01/16/2016 Inactive Request already responded to by other means (e.g. phone or fax) glyburide 5 mg tablet RxNorm: 743867 TAKE ONE TABLET BY MOUTH TWICE A DAY 12/14/2015 02/11/2016 Inactive gemfibrozil 600 mg tablet RxNorm: 798503 TAKE ONE TABLET BY MOUTH TWICE A DAY 12/14/2015 03/12/2016 Inactive potassium chloride ER 10 mEq tablet,extended release RxNorm: 428994 TAKE ONE TABLET BY MOUTH DAILY 12/14/2015 02/23/2018 Inactive potassium chloride ER 10 mEq tablet,extended release RxNorm: 526319 TAKE ONE TABLET BY MOUTH DAILY 12/14/2015 01/12/2016 Inactive Lasix 80 mg tablet RxNorm: 049442 TAKE ONE TABLET BY MOUTH DAILY 12/14/2015 02/11/2016 Inactive Neurontin 800 mg tablet RxNorm: 089961 1 Tablet(s) PO TID 12/10/2015 06/06/2016 Inactive morphine ER 15 mg tablet,extended release RxNorm: 090641 1 Tablet(s) 15mg IR PO BID as needed 12/03/2015 01/01/2016 Inactive Neurontin 800 mg tablet RxNorm: 991672 1 Tablet(s) PO TID 11/05/2015 12/09/2015 Inactive hydrocodone 10 mg-acetaminophen 325 mg tablet RxNorm: 467326 2 Tablet(s) PO Q6 PRN 10/23/2015 01/07/2016 Inactive hydrocodone 10 mg-acetaminophen 325 mg tablet RxNorm: 095298 2 Tablet(s) PO Q6 PRN 10/02/2015 10/22/2015 Inactive Neurontin 800 mg tablet RxNorm: 531178 1 Tablet(s) PO TID 09/27/2015 11/04/2015 Inactive Diflucan 150 mg tablet RxNorm: 749930 1 Tablet(s) PO daily 09/06/2015 09/05/2015 Inactive Keflex 500 mg capsule RxNorm: 446685 1 Capsule(s) PO TID 09/06/2015 12/09/2015 Inactive Diflucan 150 mg tablet RxNorm: 975296 1 Tablet(s) PO daily 09/06/2015 12/09/2015 Inactive Keflex 500 mg capsule RxNorm: 873867 1 Capsule(s) PO TID 09/06/2015 09/05/2015 Inactive Novolin 70/30 100 unit/mL subcutaneous suspension RxNorm: 061127 INJECT 100 UNITS UNDER THE SKIN TWO TIMES A DAY 08/20/2015 11/07/2015 Inactive morphine ER 15 mg tablet,extended release RxNorm: 230440 1 Tablet(s) 15mg IR PO BID as needed 08/08/2015 11/04/2015 Inactive Novolin 70/30 100 unit/mL subcutaneous suspension RxNorm: 095974 100 Unit(s) SQ BID 07/10/2015 08/08/2015 Inactive Novolin 70/30 100 unit/mL subcutaneous solution RxNorm: 198227 100 Unit(s) SQ BID 07/10/2015 07/09/2015 Inactive Mobic 15 mg tablet RxNorm: 553838 1 Tablet(s) PO daily 07/05/2015 12/31/2015 Inactive captopril 100 mg tablet RxNorm: 896647 1 Tablet(s) PO BID 07/05/2015 12/31/2015 Inactive Lopid 600 mg tablet RxNorm: 676579 1 Tablet(s) PO BID 07/05/2015 No Stop Date Active hydrocodone 10 mg-acetaminophen 325 mg tablet RxNorm: 398241 2 Tablet(s) PO Q6 PRN 07/05/2015 10/01/2015 Inactive Neurontin 800 mg tablet RxNorm: 585884 1 Tablet(s) PO TID 07/05/2015 09/26/2015 Inactive Humulin 70/30 100 unit/mL subcutaneous suspension RxNorm: 166189 100 100 Unit(s) SQ BID 07/05/2015 07/09/2015 Inactive may dispense 30 or 90 day supply Lyrica 75 mg capsule RxNorm: 914561 1 Capsule(s) PO BID 07/05/2015 07/04/2015 Inactive glyburide 5 mg tablet RxNorm: 784047 1 Tablet(s) PO BID 07/05/2015 12/13/2015 Inactive potassium chloride ER 10 mEq tablet,extended release RxNorm: 881466 1 Tablet(s) PO daily 07/05/2015 12/13/2015 Inactive Lasix 80 mg tablet RxNorm: 602146 1 Tablet(s) PO daily 07/05/2015 12/13/2015 Inactive Lyrica 75 mg capsule RxNorm: 154381 1 Capsule(s) PO BID 07/05/2015 11/04/2015 Inactive morphine ER 15 mg tablet,extended release RxNorm: 525199 1 Tablet(s) 15mg IR PO BID as needed 07/05/2015 08/03/2015 Inactive morphine 15 mg capsule RxNorm: 382451 1 Capsule(s) 15mg IR PO BID as needed 06/25/2015 07/04/2015 Inactive morphine 15 mg capsule RxNorm: 352389 1 Capsule(s) 15mg IR PO BID as needed 05/24/2015 06/22/2015 Inactive morphine 15 mg capsule RxNorm: 265516 1 Capsule(s) 15mg IR PO BID as needed 04/16/2015 05/14/2015 Inactive gemfibrozil 600 mg tablet RxNorm: 656743 1 Tablet(s) PO BID 04/11/2015 07/05/2015 Inactive Glucophage 1,000 mg tablet RxNorm: 601488 1 Tablet(s) PO BID 03/12/2015 03/05/2016 Inactive captopril 100 mg tablet RxNorm: 467129 1 Tablet(s) PO BID 03/12/2015 07/04/2015 Inactive potassium chloride ER 10 mEq tablet,extended release RxNorm: 307209 1 Tablet(s) PO daily 03/12/2015 07/04/2015 Inactive glyburide 5 mg tablet RxNorm: 264053 1 Tablet(s) PO BID 03/12/2015 07/04/2015 Inactive Mobic 15 mg tablet RxNorm: 039172 1 Tablet(s) PO daily 03/12/2015 07/04/2015 Inactive morphine 15 mg capsule RxNorm: 480826 1 Capsule(s) 15mg IR PO BID as needed 03/12/2015 04/10/2015 Inactive hydrocodone 10 mg-acetaminophen 325 mg tablet RxNorm: 772687 2 Tablet(s) PO Q6 PRN 03/12/2015 07/04/2015 Inactive Neurontin 800 mg tablet RxNorm: 429963 1 Tablet(s) PO TID 03/12/2015 06/09/2015 Inactive morphine 15 mg capsule RxNorm: 751554 1 Capsule(s) 15mg IR PO BID as needed 02/09/2015 03/10/2015 Inactive Glucophage 1,000 mg tablet RxNorm: 172689 1 Tablet(s) PO BID 01/31/2015 03/11/2015 Inactive Glucophage 1,000 mg tablet RxNorm: 189308 1 Tablet(s) PO BID 01/15/2015 01/30/2015 Inactive morphine 15 mg capsule RxNorm: 404596 1 Capsule(s) 15mg IR PO BID as needed 01/11/2015 02/08/2015 Inactive hydrocodone 10 mg-acetaminophen 325 mg tablet RxNorm: 161694 2 Tablet(s) PO Q6 PRN 01/11/2015 03/11/2015 Inactive morphine 15 mg capsule RxNorm: 019472 1 Capsule(s) 15mg IR PO BID as needed 12/13/2014 01/10/2015 Inactive morphine 15 mg capsule RxNorm: 377838 1 Capsule(s) PO BID as needed 12/08/2014 12/07/2014 Inactive morphine 15 mg capsule RxNorm: 533070 1 Capsule(s) PO BID as needed 12/08/2014 12/12/2014 Inactive hydrocodone 10 mg-acetaminophen 325 mg tablet RxNorm: 252964 2 Tablet(s) PO Q6 PRN 10/27/2014 01/10/2015 Inactive clindamycin 150 mg capsule RxNorm: 495312 1 Capsule(s) PO QID 10/24/2014 11/02/2014 Inactive hydrocodone 10 mg-acetaminophen 325 mg tablet RxNorm: 326769 1 Tablet(s) PO Q6 PRN 10/24/2014 10/26/2014 Inactive Cipro 500 mg tablet RxNorm: 573998 1 Tablet(s) PO BID 09/08/2014 09/17/2014 Inactive [SAVINGS FOR NON-COVERED DRUGS -- BIN:792052, PCN: [id number], Group: XXXXX, ID# [id number], Questions: . THIS IS NOT INSURANCE.] Flagyl 500 mg tablet RxNorm: 022002 1 Tablet(s) PO TID 09/08/2014 09/17/2014 Inactive [SAVINGS FOR NON-COVERED DRUGS -- BIN:668154, PCN: ASPROD1, Group: XXXXX, ID# [id number], Questions: . THIS IS NOT INSURANCE.] Flagyl 500 mg tablet RxNorm: 389801 1 Tablet(s) PO TID 09/08/2014 09/07/2014 Inactive Cipro 500 mg tablet RxNorm: 359078 1 Tablet(s) PO BID 09/08/2014 09/07/2014 Inactive Promethazine VC-Codeine 6.25 mg-5 mg-10 mg/5 mL syrup RxNorm: 730054 to 10 Milliliter(s) PO Q6 No Start Date Active multivitamin oral RxNorm: 82411 oral No Start Date Active Fish Oil capsule RxNorm: Capsule(s) PO 1200 mg No Start Date Active melatonin 5 mg tablet RxNorm: 007805 2 Tablet(s) PO QHS No Start Date Active vitamin E 1,000 unit tablet RxNorm: 743247 oral No Start Date Active Calcium 600 + D(3) oral RxNorm: 575889 oral No Start Date Active Multiple Vitamins Daily oral RxNorm: 84363 oral No Start Date Active oxycodone 10 mg tablet RxNorm: 0975205 1 Tablet(s) PO Q6 PRN No Start Date Active Lopid 600 mg tablet RxNorm: 208620 1 Tablet(s) PO BID No Start Date 04/10/2015 Inactive vitamin E06-nimcnyi B1 intramuscular RxNorm: 45159 intramuscular No Start Date 11/04/2015 Inactive Mobic 15 mg tablet RxNorm: 005561 1 Tablet(s) PO daily No Start Date 03/11/2015 Inactive Vitamin D3 2,000 unit capsule RxNorm: 934084 1 Capsule(s) PO daily No Start Date 11/04/2015 Inactive Vitamin C 1,000 mg tablet RxNorm: 262806 1 Tablet(s) PO daily No Start Date 11/04/2015 Inactive captopril 100 mg tablet RxNorm: 496041 1 Tablet(s) PO BID No Start Date 03/11/2015 Inactive nystatin 100,000 unit/gram topical powder RxNorm: 830722 1 Gram(s) TOP QID as needed No Start Date 05/12/2016 Inactive Neurontin 800 mg tablet RxNorm: 550348 1 Tablet(s) PO TID No Start Date 03/11/2015 Inactive mupirocin 2 % topical ointment RxNorm: 625719 1 Gram(s) TOP BID to affected area No Start Date 08/18/2017 Inactive KCL 20 meq RxNorm: 1 Tablet(s) PO daily No Start Date 03/11/2015 Inactive Lasix 80 mg tablet RxNorm: 998447 1 Tablet(s) PO daily No Start Date 07/04/2015 Inactive ipratropium-albuterol 0.5 mg-3 mg(2.5 mg base)/3 mL nebulization soln RxNorm: 5212417 INHALE ONE VIAL VIA NEBULIZER EVERY 4 HOURS NEEDED FOR SHORTNESS OF BREATH No Start Date 06/02/2017 Inactive Lyrica 75 mg capsule RxNorm: 860879 1 Capsule(s) PO BID No Start Date 07/04/2015 Inactive glyburide 5 mg tablet RxNorm: 316319 1 Tablet(s) PO BID No Start Date 03/11/2015 Inactive hydrocodone 10 mg-acetaminophen 325 mg tablet RxNorm: 100342 1 Tablet(s) PO Q6 PRN No Start Date 10/23/2014 Inactive Glucophage 1,000 mg tablet RxNorm: 553204 2 Tablet(s) PO daily No Start Date 01/14/2015 Inactive Humulin 70/30 100 unit/mL subcutaneous suspension RxNorm: 814935 100 Unit(s) SQ BID No Start Date [...] Code Item Item Code Result Date %Hba1C Dsu559 % HbA1c 44833- 6 7.3 % 07/05/2015 %Hba1C Xha086 Gluc Ave 163 mg/dL 07/05/2015 Cbc With [...] 30.5 pg 07/05/2015 Cbc With Differential Ord2 Loving% 8.1 % 07/05/2015 Cbc With Differential Ord2 [...] 1.65 K/ul 07/05/2015 Cbc With Differential Ord2 Loving ABS# 0.7 K/ul 07/05/2015 Cbc With Differential Ord2 Eos ABS# 0.4 K/ul 07/05/2015 Cbc With Differential Ord2 Baso ABS# 0.0 K/ul 07/05/2015 Cbc With Differential Ord2 New Analyzer Notice Please note new ref ranges starting 05-30-2015 due to implemntation of new five part differential hematolgy analyzer. 07/05/2015 Tsh Ord6 hTSH II 1.45 uIU/mL 07/05/2015 Total Psa Ord10 PSA 0.14 ng/mL 07/05/2015 Comp Metabolic Ufk154 NA 138 mEq/L 07/05/2015 Comp Metabolic Qkx893 K 4.7 mEq/L 07/05/2015 Comp Metabolic Mux481 CL 101 mEq/L 07/05/2015 Comp Metabolic Kgm357 CO2 27.0 mEq/L 07/05/2015 Comp Metabolic Rwh316 ANION GAP 15 07/05/2015 Comp Metabolic Lad133 GLUCOSE 152 mg/dL 07/05/2015 Comp Metabolic Azg439 Creat 0.8 mg/dL 07/05/2015 Comp Metabolic Feg754 eGFR 106 ml/min/1.73m2 07/05/2015 Comp Metabolic Gjf198 BUN 14 mg/dL 07/05/2015 Comp Metabolic Nzc730 B/C Ratio 17.7 Ratio 07/05/2015 Comp Metabolic Ukd953 CALCIUM 9.4 mg/dL 07/05/2015 Comp Metabolic Uru650 ALK PHOS 77 U/L 07/05/2015 Comp Metabolic Rth016 AST(SGOT) 23 U/L 07/05/2015 Comp Metabolic Xnn569 ALT(SGPT) 25 U/L 07/05/2015 Comp Metabolic Bgy804 BILI T 0.6 mg/dL 07/05/2015 Comp Metabolic Svf859 ALBUMIN 4.0 g/dL 07/05/2015 Comp Metabolic Ijk224 TPRO 6.5 g/dL 07/05/2015 Comp Metabolic Lqm684 GLOB 2.5 g/dL 07/05/2015 Comp Metabolic Sel914 A/G Ratio 1.6 Ratio 07/05/2015 Comp Metabolic Evn432 Osmo 279 mOsmo 07/05/2015 Cbc With Differential [...] Differential Ord2 RDW 13.3 % 03/12/2015 %Hba1C Hfn480 % HbA1c 06705- 6 6.6 % 03/12/2015 %Hba1C Nea966 Gluc Ave 143 mg/dL 03/12/2015 Comp Metabolic Wjh180 NA 135 mEq/L 03/12/2015 Comp Metabolic Bwt907 K 4.7 mEq/L 03/12/2015 Comp Metabolic Thi118 CL 98 mEq/L 03/12/2015 Comp Metabolic Zcb830 CO2 27.0 mEq/L 03/12/2015 Comp Metabolic Hkc424 ANION GAP 15 03/12/2015 Comp Metabolic Jtj768 GLUCOSE 232 mg/dL 03/12/2015 Comp Metabolic Jqz304 Creat 0.8 mg/dL 03/12/2015 Comp Metabolic Elb747 eGFR 104 ml/min/1.73m2 03/12/2015 Comp Metabolic Fei897 BUN 19 mg/dL 03/12/2015 Comp Metabolic Thr127 B/C Ratio 23.8 Ratio 03/12/2015 Comp Metabolic Kpb302 CALCIUM 9.2 mg/dL 03/12/2015 Comp Metabolic Gid773 ALK PHOS 74 U/L 03/12/2015 Comp Metabolic Txd125 AST(SGOT) 24 U/L 03/12/2015 Comp Metabolic Pnp423 ALT(SGPT) 29 U/L 03/12/2015 Comp Metabolic Xtn461 BILI T 0.4 mg/dL 03/12/2015 Comp Metabolic Dou553 ALBUMIN 4.2 g/dL 03/12/2015 Comp Metabolic Ick581 TPRO 6.5 g/dL 03/12/2015 Comp Metabolic Xwi803 GLOB 2.3 g/dL 03/12/2015 Comp Metabolic Qkr389 A/G Ratio 1.8 Ratio 03/12/2015 Comp Metabolic Rnj460 Osmo 280 mOsmo 03/12/2015 Review of Systems [...] Codes Date URINALYSIS NONAUTO W/O SCOPE CPT-4: 08937 02/22/2016 Vital Signs Date Vital 11/05/2015 Blood [...] data Encounters Encounter Performer Location Codes Date [id number] EST. PATIENT, LEVEL IV Diagnosis: Type 2 diabetes mellitus with diabetic polyneuropathy[ICD10: E11.42] Diagnosis: Essential (primary) hypertension[ICD10: I10] Diagnosis: Panniculitis, unspecified[ICD10: M79.3] Diagnosis: Bilateral primary osteoarthritis of knee[ICD10: M17.0] Diagnosis: Heart failure, unspecified[ICD10: I50.9] Graciela Treviño MD, [facility] CPT-4: 32714 11/05/2015 [id number] EST. PATIENT, LEVEL IV Diagnosis: Encounter for follow-up examination after completed treatment for conditions other than malignant neoplasm[ICD10: Z09] [facility] CPT-4: 89603 09/27/2015 [id number]) 81317 EST. 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.2] Diagnosis: ACUTE SINUSITIS[ICD9: 461.9] [facility] CPT-4: 45519 10/24/2014 Plan of Care Planned Activity Notes Codes Status Date Patient Education: Patient Medication Summary Completed 09/08/2018 Care Plan: Tsh Pending 09/08/2018 Care Plan: Free T4 Pending 09/08/2018 Appointment: Graciela Ruvalcaba WPtel: [facility][note 3]5 [phone] (30 min) Complex 01/01/2017 Appointment: Nurse Visit 02/22/2016 Patient Education: Patient Medication Summary Completed 02/22/2016 Appointment: Graciela Ruvalcaba WPtel: [address] [place], [place] [phone] (30 min) Complex 02/07/2016 Appointment: Florence Treviño WPtel: [facility] (15 min) Moderate 01/10/2016 Visit Plan: [...] Pending 11/05/2015 Care Plan: %Hba1C LOINC : 63724-9 Pending 11/05/2015 Visit Plan: Hospital follow up [...] Hypertension Completed 03/12/2015 Appointment: Florence Treviño WPtel: [facility] 3[facility] ([facility] min[facility] Complex 01/24/2015 Visit Plan: [...] this time 10/24/2014 Appointment: Graciela Ruvalcaba WPtel: [facility][note 3]9 [phone] [place] ([place] New Patient 10/24/2014 Patient Education: Patient Medication Summary Completed 10/24/2014 Patient Education: Hypertension Completed 10/24/2014 Appointment: Florence Treviño WPtel: [facility][note 3] [facility] [place] ([place]) New Patient 09/25/2014 Instructions Comment [...]
--- OUTSIDE RECORDS SUMMARY | 2018-11-25 12:44 | XMS REPORT | CCD ---
Author Author Florence Treviño Organization Florence Treviño MD, [facility] Address [address] [place] [address] Phone Care Team Providers Care Sociology Professor Name Role Phone PP Unavailable CCM Unavailable Summary Purpose Interface Exchange Insurance Providers Payer name Policy type / Coverage type Covered democrat ID Effective Begin Date Effective End Date [facility] [id number] 2015 Unknown Family history Father Diagnosis Age [...] Retired disabled 10/24/[address]: 4264558 Former smoker quit 1993 10/24/2014 Allergies, Adverse Reactions, Alerts Allergies, Adverse Reactions, Alerts data not found Past Medical History Illness Codes Condition Status Onset Date Resolved Date Dysuria ICD-9: 788.1 ICD-10: R30.0 Active 02/21/2016 [...] Problems Condition Codes Effective Dates Condition Status Dysuria ICD-9: 788.1 ICD-10: R30.0 02/21/2016 Active [...] hydrocodone 10 mg-acetaminophen 325 mg tablet RxNorm: 810217 2 Tablet(s) PO Q6 PRN 11/25/2016 12/16/2016 Active nystatin 100,000 unit/gram topical powder RxNorm: 010949 1 Gram(s) TOP QID as needed 11/25/2016 No Stop Date Active hydrocodone 10 mg-acetaminophen 325 mg tablet RxNorm: 250353 2 Tablet(s) PO Q6 PRN 10/30/2016 11/20/2016 Inactive hydrocodone 10 mg-acetaminophen 325 mg tablet RxNorm: 943517 2 Tablet(s) PO Q6 PRN 10/01/2016 10/22/2016 Inactive hydrocodone 10 mg-acetaminophen 325 mg tablet RxNorm: 438042 2 Tablet(s) PO Q6 PRN 09/01/2016 09/22/2016 Inactive Novolin 70/30 100 unit/mL subcutaneous suspension RxNorm: 408179 INJECT 100 UNITS UNDER THE SKIN TWO TIMES A DAY 08/21/2016 09/04/2016 Inactive hydrocodone 10 mg-acetaminophen 325 mg tablet RxNorm: 027160 2 Tablet(s) PO Q6 PRN 07/29/2016 08/19/2016 Inactive hydrocodone 10 mg-acetaminophen 325 mg tablet RxNorm: 705897 2 Tablet(s) PO Q6 PRN 06/30/2016 07/21/2016 Inactive Neurontin 800 mg tablet RxNorm: 229496 1 Tablet(s) PO TID 06/23/2016 12/19/2016 Active glyburide 5 mg tablet RxNorm: 605568 TAKE ONE TABLET BY MOUTH TWICE A DAY 06/12/2016 09/09/2016 Inactive hydrocodone 10 mg-acetaminophen 325 mg tablet RxNorm: 936588 2 Tablet(s) PO Q6 PRN 05/16/2016 06/06/2016 Inactive morphine ER 15 mg tablet,extended release RxNorm: 859348 1 Tablet(s) 15mg IR PO BID as needed 05/13/2016 06/11/2016 Inactive nystatin 100,000 unit/gram topical powder RxNorm: 202145 1 Gram(s) TOP QID as needed 05/13/2016 11/24/2016 Inactive gemfibrozil 600 mg tablet RxNorm: 404273 TAKE ONE TABLET BY MOUTH TWICE A DAY 05/05/2016 10/31/2016 Inactive hydrocodone 10 mg-acetaminophen 325 mg tablet RxNorm: 047703 2 Tablet(s) PO Q6 PRN 04/18/2016 05/09/2016 Inactive Keflex 500 mg capsule RxNorm: 939639 1 Capsule(s) PO TID 04/15/2016 06/22/2016 Inactive Keflex 500 mg capsule RxNorm: 282620 1 Capsule(s) PO TID 04/15/2016 04/14/2016 Inactive hydrocodone 10 mg-acetaminophen 325 mg tablet RxNorm: 825640 2 Tablet(s) PO Q6 PRN 03/19/2016 04/17/2016 Inactive captopril 100 mg tablet RxNorm: 856436 TAKE ONE TABLET BY MOUTH TWICE A DAY 03/03/2016 06/30/2016 Inactive gemfibrozil 600 mg tablet RxNorm: 753457 TAKE ONE TABLET BY MOUTH TWICE A DAY 03/03/2016 05/01/2016 Inactive hydrocodone 10 mg-acetaminophen 325 mg tablet RxNorm: 546547 2 Tablet(s) PO Q6 PRN 02/28/2016 03/18/2016 Inactive Cipro 500 mg tablet RxNorm: 820176 1 Tablet(s) PO BID 02/21/2016 02/27/2016 Inactive [SAVINGS FOR NON-COVERED DRUGS -- BIN:737316, PCN: [id number], Group: XXXXX, ID# [id number], Questions: . THIS IS NOT INSURANCE.] hydrocodone 10 mg-acetaminophen 325 mg tablet RxNorm: 686913 2 Tablet(s) PO Q6 PRN 02/01/2016 02/27/2016 Inactive hydrocodone 10 mg-acetaminophen 325 mg tablet RxNorm: 754683 2 Tablet(s) PO Q6 PRN 01/08/2016 01/31/2016 Inactive Lasix 80 mg tablet RxNorm: 763163 TAKE ONE TABLET BY MOUTH DAILY 12/18/2015 01/16/2016 Inactive Request already responded to by other means (e.g. phone or fax) gemfibrozil 600 mg tablet RxNorm: 191683 TAKE ONE TABLET BY MOUTH TWICE A DAY 12/18/2015 03/02/2016 Inactive Request already responded to by other means (e.g. phone or fax) glyburide 5 mg tablet RxNorm: 882689 TAKE ONE TABLET BY MOUTH TWICE A DAY 12/18/2015 01/16/2016 Inactive Request already responded to by other means (e.g. phone or fax) potassium chloride ER 10 mEq tablet,extended release RxNorm: 259425 TAKE ONE TABLET BY MOUTH DAILY 12/14/2015 02/11/2016 Inactive glyburide 5 mg tablet RxNorm: 859792 TAKE ONE TABLET BY MOUTH TWICE A DAY 12/14/2015 02/11/2016 Inactive potassium chloride ER 10 mEq tablet,extended release RxNorm: 179764 TAKE ONE TABLET BY MOUTH DAILY 12/14/2015 01/12/2016 Inactive Lasix 80 mg tablet RxNorm: 139064 TAKE ONE TABLET BY MOUTH DAILY 12/14/2015 02/11/2016 Inactive gemfibrozil 600 mg tablet RxNorm: 298991 TAKE ONE TABLET BY MOUTH TWICE A DAY 12/14/2015 03/12/2016 Inactive Neurontin 800 mg tablet RxNorm: 847204 1 Tablet(s) PO TID 12/10/2015 06/06/2016 Inactive morphine ER 15 mg tablet,extended release RxNorm: 965459 1 Tablet(s) 15mg IR PO BID as needed 12/03/2015 01/01/2016 Inactive Neurontin 800 mg tablet RxNorm: 317196 1 Tablet(s) PO TID 11/05/2015 12/09/2015 Inactive hydrocodone 10 mg-acetaminophen 325 mg tablet RxNorm: 014868 2 Tablet(s) PO Q6 PRN 10/23/2015 01/07/2016 Inactive hydrocodone 10 mg-acetaminophen 325 mg tablet RxNorm: 215795 2 Tablet(s) PO Q6 PRN 10/02/2015 10/22/2015 Inactive Neurontin 800 mg tablet RxNorm: 314419 1 Tablet(s) PO TID 09/27/2015 11/04/2015 Inactive Diflucan 150 mg tablet RxNorm: 407322 1 Tablet(s) PO daily 09/06/2015 09/05/2015 Inactive Keflex 500 mg capsule RxNorm: 047385 1 Capsule(s) PO TID 09/06/2015 12/09/2015 Inactive Diflucan 150 mg tablet RxNorm: 925155 1 Tablet(s) PO daily 09/06/2015 12/09/2015 Inactive Keflex 500 mg capsule RxNorm: 164194 1 Capsule(s) PO TID 09/06/2015 09/05/2015 Inactive Novolin 70/30 100 unit/mL subcutaneous suspension RxNorm: 993618 INJECT 100 UNITS UNDER THE SKIN TWO TIMES A DAY 08/20/2015 11/07/2015 Inactive morphine ER 15 mg tablet,extended release RxNorm: 710753 1 Tablet(s) 15mg IR PO BID as needed 08/08/2015 11/04/2015 Inactive Novolin 70/30 100 unit/mL subcutaneous suspension RxNorm: 018928 100 Unit(s) SQ BID 07/10/2015 08/08/2015 Inactive Novolin 70/30 100 unit/mL subcutaneous solution RxNorm: 854298 100 Unit(s) SQ BID 07/10/2015 07/09/2015 Inactive Mobic 15 mg tablet RxNorm: 551112 1 Tablet(s) PO daily 07/05/2015 12/31/2015 Inactive captopril 100 mg tablet RxNorm: 546576 1 Tablet(s) PO BID 07/05/2015 12/31/2015 Inactive Lopid 600 mg tablet RxNorm: 509132 1 Tablet(s) PO BID 07/05/2015 No Stop Date Active hydrocodone 10 mg-acetaminophen 325 mg tablet RxNorm: 888355 2 Tablet(s) PO Q6 PRN 07/05/2015 10/01/2015 Inactive Neurontin 800 mg tablet RxNorm: 941215 1 Tablet(s) PO TID 07/05/2015 09/26/2015 Inactive Humulin 70/30 100 unit/mL subcutaneous suspension RxNorm: 980095 100 100 Unit(s) SQ BID 07/05/2015 07/09/2015 Inactive may dispense 30 or 90 day supply Lyrica 75 mg capsule RxNorm: 205083 1 Capsule(s) PO BID 07/05/2015 07/04/2015 Inactive glyburide 5 mg tablet RxNorm: 349112 1 Tablet(s) PO BID 07/05/2015 12/13/2015 Inactive potassium chloride ER 10 mEq tablet,extended release RxNorm: 827149 1 Tablet(s) PO daily 07/05/2015 12/13/2015 Inactive Lasix 80 mg tablet RxNorm: 670037 1 Tablet(s) PO daily 07/05/2015 12/13/2015 Inactive Lyrica 75 mg capsule RxNorm: 115502 1 Capsule(s) PO BID 07/05/2015 11/04/2015 Inactive morphine ER 15 mg tablet,extended release RxNorm: 602562 1 Tablet(s) 15mg IR PO BID as needed 07/05/2015 08/03/2015 Inactive morphine 15 mg capsule RxNorm: 955220 1 Capsule(s) 15mg IR PO BID as needed 06/25/2015 07/04/2015 Inactive morphine 15 mg capsule RxNorm: 249113 1 Capsule(s) 15mg IR PO BID as needed 05/24/2015 06/22/2015 Inactive morphine 15 mg capsule RxNorm: 810074 1 Capsule(s) 15mg IR PO BID as needed 04/16/2015 05/14/2015 Inactive gemfibrozil 600 mg tablet RxNorm: 034984 1 Tablet(s) PO BID 04/11/2015 07/05/2015 Inactive Glucophage 1,000 mg tablet RxNorm: 646625 1 Tablet(s) PO BID 03/12/2015 03/05/2016 Inactive captopril 100 mg tablet RxNorm: 108653 1 Tablet(s) PO BID 03/12/2015 07/04/2015 Inactive potassium chloride ER 10 mEq tablet,extended release RxNorm: 110348 1 Tablet(s) PO daily 03/12/2015 07/04/2015 Inactive glyburide 5 mg tablet RxNorm: 445818 1 Tablet(s) PO BID 03/12/2015 07/04/2015 Inactive Mobic 15 mg tablet RxNorm: 665767 1 Tablet(s) PO daily 03/12/2015 07/04/2015 Inactive morphine 15 mg capsule RxNorm: 567704 1 Capsule(s) 15mg IR PO BID as needed 03/12/2015 04/10/2015 Inactive hydrocodone 10 mg-acetaminophen 325 mg tablet RxNorm: 774474 2 Tablet(s) PO Q6 PRN 03/12/2015 07/04/2015 Inactive Neurontin 800 mg tablet RxNorm: 262584 1 Tablet(s) PO TID 03/12/2015 06/09/2015 Inactive morphine 15 mg capsule RxNorm: 478503 1 Capsule(s) 15mg IR PO BID as needed 02/09/2015 03/10/2015 Inactive Glucophage 1,000 mg tablet RxNorm: 627127 1 Tablet(s) PO BID 01/31/2015 03/11/2015 Inactive Glucophage 1,000 mg tablet RxNorm: 724241 1 Tablet(s) PO BID 01/15/2015 01/30/2015 Inactive morphine 15 mg capsule RxNorm: 807037 1 Capsule(s) 15mg IR PO BID as needed 01/11/2015 02/08/2015 Inactive hydrocodone 10 mg-acetaminophen 325 mg tablet RxNorm: 701868 2 Tablet(s) PO Q6 PRN 01/11/2015 03/11/2015 Inactive morphine 15 mg capsule RxNorm: 862927 1 Capsule(s) 15mg IR PO BID as needed 12/13/2014 01/10/2015 Inactive morphine 15 mg capsule RxNorm: 919671 1 Capsule(s) PO BID as needed 12/08/2014 12/07/2014 Inactive morphine 15 mg capsule RxNorm: 819409 1 Capsule(s) PO BID as needed 12/08/2014 12/12/2014 Inactive hydrocodone 10 mg-acetaminophen 325 mg tablet RxNorm: 463590 2 Tablet(s) PO Q6 PRN 10/27/2014 01/10/2015 Inactive clindamycin 150 mg capsule RxNorm: 405245 1 Capsule(s) PO QID 10/24/2014 11/02/2014 Inactive hydrocodone 10 mg-acetaminophen 325 mg tablet RxNorm: 711092 1 Tablet(s) PO Q6 PRN 10/24/2014 10/26/2014 Inactive Cipro 500 mg tablet RxNorm: 603883 1 Tablet(s) PO BID 09/08/2014 09/17/2014 Inactive [SAVINGS FOR NON-COVERED DRUGS -- BIN:[id number], PCN: [id number], Group: XXXXX, ID# [id number], Questions: . THIS IS NOT INSURANCE.] Flagyl 500 mg tablet RxNorm: 667001 1 Tablet(s) PO TID 09/08/2014 09/17/2014 Inactive [SAVINGS FOR NON-COVERED DRUGS -- BIN:597402, PCN: ASPROD1, Group: XXXXX, ID# [id number], Questions: . THIS IS NOT INSURANCE.] Flagyl 500 mg tablet RxNorm: 885643 1 Tablet(s) PO TID 09/08/2014 09/07/2014 Inactive Cipro 500 mg tablet RxNorm: 503888 1 Tablet(s) PO BID 09/08/2014 09/07/2014 Inactive Promethazine VC-Codeine 6.25 mg-5 mg-10 mg/5 mL syrup RxNorm: 295346 to 10 Milliliter(s) PO Q6 No Start Date Active multivitamin oral RxNorm: 94217 oral No Start Date Active Fish Oil capsule RxNorm: Capsule(s) PO 1200 mg No Start Date Active melatonin 5 mg tablet RxNorm: 584008 2 Tablet(s) PO QHS No Start Date Active vitamin E 1,000 unit tablet RxNorm: 635976 oral No Start Date Active Calcium 600 + D(3) oral RxNorm: 827974 oral No Start Date Active Multiple Vitamins Daily oral RxNorm: 43584 oral No Start Date Active oxycodone 10 mg tablet RxNorm: 6909412 1 Tablet(s) PO Q6 PRN No Start Date Active Lopid 600 mg tablet RxNorm: 973482 1 Tablet(s) PO BID No Start Date 04/10/2015 Inactive vitamin N34-yjtbcid B1 intramuscular RxNorm: 52184 intramuscular No Start Date 11/04/2015 Inactive Mobic 15 mg tablet RxNorm: 975688 1 Tablet(s) PO daily No Start Date 03/11/2015 Inactive Vitamin D3 2,000 unit capsule RxNorm: 292290 1 Capsule(s) PO daily No Start Date 11/04/2015 Inactive Vitamin C 1,000 mg tablet RxNorm: 220926 1 Tablet(s) PO daily No Start Date 11/04/2015 Inactive captopril 100 mg tablet RxNorm: 858293 1 Tablet(s) PO BID No Start Date 03/11/2015 Inactive nystatin 100,000 unit/gram topical powder RxNorm: 933244 1 Gram(s) TOP QID as needed No Start Date 05/12/2016 Inactive Neurontin 800 mg tablet RxNorm: 840878 1 Tablet(s) PO TID No Start Date 03/11/2015 Inactive KCL 20 meq RxNorm: 1 Tablet(s) PO daily No Start Date 03/11/2015 Inactive Lasix 80 mg tablet RxNorm: 415841 1 Tablet(s) PO daily No Start Date 07/04/2015 Inactive Lyrica 75 mg capsule RxNorm: 515677 1 Capsule(s) PO BID No Start Date 07/04/2015 Inactive glyburide 5 mg tablet RxNorm: 357426 1 Tablet(s) PO BID No Start Date 03/11/2015 Inactive hydrocodone 10 mg-acetaminophen 325 mg tablet RxNorm: 550608 1 Tablet(s) PO Q6 PRN No Start Date 10/23/2014 Inactive Glucophage 1,000 mg tablet RxNorm: 704565 2 Tablet(s) PO daily No Start Date 01/14/2015 Inactive Humulin 70/30 100 unit/mL subcutaneous suspension RxNorm: 462917 100 Unit(s) SQ BID No Start Date 07/04/2015 Inactive Medication Administered No Medication Administered data Immunizations No Immunization data Assessments Condition Codes Effective Dates Dysuria ICD-10: R30.0 ICD-9: 788.1 02/22/2016 Essential [...] Code Item Item Code Result Date %Hba1C Tbv804 % HbA1c 29210- 6 7.3 % 07/05/2015 %Hba1C Tbq541 Gluc [address] 163 mg/dL 07/05/2015 Cbc With Differential Ord2 WBC 8.10 K/ul 07/05/2015 Cbc With Differential Ord2 RBC 4.36 M/ul 07/05/2015 Cbc With Differential Ord2 HGB 13.3 g/dl 07/05/2015 Cbc With Differential Ord2 HCT 40.8 % 07/05/2015 Cbc With Differential Ord2 Neut% 66.8 % 07/05/2015 Cbc With Differential Ord2 Lymph% 20.4 % 07/05/2015 Cbc With Differential Ord2 MCV 93.6 fl 07/05/2015 Cbc With Differential Ord2 [place]% 8.1 % 07/05/2015 Cbc With Differential Ord2 MCH 30.5 pg 07/05/2015 Cbc With Differential Ord2 MCHC 32.6 pg 07/05/2015 Cbc With Differential Ord2 Eos% 4.3 % 07/05/2015 Cbc With Differential Ord2 Baso% 0.4 % 07/05/2015 Cbc With Differential Ord2 PLT 212 K/ul 07/05/2015 Cbc With Differential Ord2 RDW 13.1 % 07/05/2015 Cbc With Differential Ord2 Neut ABS# 5.41 K/ul 07/05/2015 Cbc With Differential Ord2 Lymph ABS# 1.65 K/ul 07/05/2015 Cbc With Differential Ord2 [place] ABS# 0.7 K/ul 07/05/2015 Cbc With Differential Ord2 Eos ABS# 0.4 K/ul 07/05/2015 Cbc With Differential Ord2 Baso ABS# 0.0 K/ul 07/05/2015 Cbc With Differential Ord2 New Analyzer Notice Please note new ref ranges starting 05-30-2015 due to implemntation of new five part differential hematolgy analyzer. 07/05/2015 Tsh Ord6 hTSH II 1.45 uIU/mL 07/05/2015 Total Psa Ord10 PSA 0.14 ng/mL 07/05/2015 Comp Metabolic Kbx789 NA 138 mEq/L 07/05/2015 Comp Metabolic Ffi154 K 4.7 mEq/L 07/05/2015 Comp Metabolic Ptt804 CL 101 mEq/L 07/05/2015 Comp Metabolic Zyl131 CO2 27.0 mEq/L 07/05/2015 Comp Metabolic Oiq388 ANION GAP 15 07/05/2015 Comp Metabolic Zgs639 GLUCOSE 152 mg/dL 07/05/2015 Comp Metabolic Gey666 Creat 0.8 mg/dL 07/05/2015 Comp Metabolic Bxl649 eGFR 106 ml/min/1.73m2 07/05/2015 Comp Metabolic Gpe299 BUN 14 mg/dL 07/05/2015 Comp Metabolic Jsg404 B/C Ratio 17.7 Ratio 07/05/2015 Comp Metabolic Zrs200 CALCIUM 9.4 mg/dL 07/05/2015 Comp Metabolic Gis316 ALK PHOS 77 U/L 07/05/2015 Comp Metabolic Dnl590 AST(SGOT) 23 U/L 07/05/2015 Comp Metabolic Bfk185 ALT(SGPT) 25 U/L 07/05/2015 Comp Metabolic Ydi488 BILI T 0.6 mg/dL 07/05/2015 Comp Metabolic Awr620 ALBUMIN 4.0 g/dL 07/05/2015 Comp Metabolic Tkn477 TPRO 6.5 g/dL 07/05/2015 Comp Metabolic Gok515 GLOB 2.5 g/dL 07/05/2015 Comp Metabolic Iuz936 A/G Ratio 1.6 Ratio 07/05/2015 Comp Metabolic Sxg921 Osmo 279 mOsmo 07/05/2015 Cbc With Differential [...] Differential Ord2 RDW 13.3 % 03/12/2015 %Hba1C Wpr030 % HbA1c 37477- 6 6.6 % 03/12/2015 %Hba1C Pca904 Gluc Ave 143 mg/dL 03/12/2015 Comp Metabolic Dgi990 NA 135 mEq/L 03/12/2015 Comp Metabolic Vpz937 K 4.7 mEq/L 03/12/2015 Comp Metabolic Hvu526 CL 98 mEq/L 03/12/2015 Comp Metabolic Hne243 CO2 27.0 mEq/L 03/12/2015 Comp Metabolic Dcg343 ANION GAP 15 03/12/2015 Comp Metabolic Zuu615 GLUCOSE 232 mg/dL 03/12/2015 Comp Metabolic Dvx233 Creat 0.8 mg/dL 03/12/2015 Comp Metabolic Kry169 eGFR 104 ml/min/1.73m2 03/12/2015 Comp Metabolic Gjx684 BUN 19 mg/dL 03/12/2015 Comp Metabolic Qfu939 B/C Ratio 23.8 Ratio 03/12/2015 Comp Metabolic Fqf028 CALCIUM 9.2 mg/dL 03/12/2015 Comp Metabolic Amw823 ALK PHOS 74 U/L 03/12/2015 Comp Metabolic Xle236 AST(SGOT) 24 U/L 03/12/2015 Comp Metabolic Gie745 ALT(SGPT) 29 U/L 03/12/2015 Comp Metabolic Awt398 BILI T 0.4 mg/dL 03/12/2015 Comp Metabolic Lsb432 ALBUMIN 4.2 g/dL 03/12/2015 Comp Metabolic Vdk541 TPRO 6.5 g/dL 03/12/2015 Comp Metabolic Ryj594 GLOB 2.3 g/dL 03/12/2015 Comp Metabolic Rjl160 A/G Ratio 1.8 Ratio 03/12/2015 Comp Metabolic Uig830 Osmo 280 mOsmo 03/12/2015 Review of Systems [...] Codes Date URINALYSIS NONAUTO W/O SCOPE CPT-4: 31123Wrjnewr 02/22/2016 Vital Signs Date Vital 11/05/2015 Blood [...] data Encounters Encounter Performer Location Codes Date () 16138 EST. PATIENT, LEVEL IV Diagnosis: Type 2 diabetes mellitus with diabetic polyneuropathy[ICD10: E11.42] Diagnosis: Essential (primary) hypertension[ICD10: I10] Diagnosis: Panniculitis, unspecified[ICD10: M79.3] Diagnosis: Bilateral primary osteoarthritis of knee[ICD10: M17.0] Diagnosis: Heart failure, unspecified[ICD10: I50.9] Graciela Treviño MD, [facility] CPT-4: 45514 11/05/2015 67978 EST. PATIENT, LEVEL IV Diagnosis: Encounter for follow-up examination after completed treatment for conditions other than malignant neoplasm[ICD10: Z09] Ashlyn Treviño MD, [facility] CPT-4: 15977 09/27/2015 [id number]) 55825 EST. PATIENT, LEVEL IV Diagnosis: Type 2 diabetes mellitus with diabetic polyneuropathy[ICD10: E11.42] Diagnosis: Essential (primary) hypertension[ICD10: I10] Diagnosis: Chronic pain syndrome[ICD10: G89.4] Graciela Treviño MD, [facility] CPT-4: 66375 07/05/2015 [id number] EST. 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: E11.42] Graciela Treviño MD, [facility] CPT-4: 05109 03/12/2015 (64120) OFFICE VISIT, NEW - LEVEL 4 Diagnosis: ESSENTIAL HYPERTENSION[ICD9: 401.9] Diagnosis: Osteoarthritis of knees, bilateral[ICD9: 715.96] Diagnosis: Diabetes mellitus[ICD9: 250.00] Diagnosis: Double vision[ICD9: 368.2] Diagnosis: ACUTE SINUSITIS[ICD9: 461.9] Florence Treviño MD, [facility] CPT-4: 94818 10/24/2014 Plan of Care Planned Activity Notes Codes Status Date Appointment: Nurse Visit 02/22/2016 Patient Education: Patient Medication Summary Completed 02/22/2016 Appointment: Graciela Ruvalcaba WPtel: [phone] (30 min) Complex 02/07/2016 Appointment: Florence Treviño WPtel: [facility] (15 min) Moderate 01/10/2016 Visit Plan: [...] acute concerns, complaints, or if the blood glucos e readings are starting to become less controlled.Hypertension - well controlled - continue with current medications, continue with no added salt diet. Pt has been encouraged to exercise daily.The pt has been advised to call the office if there are any acute concerns about change in blood pressure readings at home.Panniculitis-hospital follow up-completed treatment-no further s/s of infection [...] acute concerns, complaints, or if the blood glucos e readings are starting to become less controlled.Hypertension - well controlled - continue with current medications, continue with no added salt diet. Pt has been encouraged to exercise daily.The pt has been advised to call the office if there are any acute concerns about change in blood pressure readings at home.Panniculitis-hospital follow up-completed treatment-no further s/s of infection [...] acute concerns, complaints, or if the blood glucos e readings are starting to become less controlled.Hypertension - well controlled - continue with current medications, continue with no added salt diet. Pt has been encouraged to exercise daily.The pt has been advised to call the office if there are any acute concerns about change in blood pressure readings at home.Panniculitis-hospital follow up-completed treatment-no further s/s of infection [...] Pending 11/05/2015 Care Plan: %Hba1C LOINC : 18254-7 Pending 11/05/2015 Visit Plan: Hospital follow up [...] diet. Pt has been encouraged to exercise daily.The pt has been advised to call the office if there are any acute concerns about change in blood pressure readings at home.Diabetes Mellitus - controlled - per recent FSBS [...] glucose readings are starting to become less controlled.Chronic Pain Syndrome - pt has chronic pain - has been maintained on current medications, has not sought out other medications, only uses PRN pain medications as directed, and understands the consequences of over- medication.Change morphine to extended release. 07/05/2015 Patient Education: Patient Medication Summary Completed 07/05/2015 Patient Education: Hypertension Completed 07/05/2015 Visit Plan: Hypertension - well controlled - continue with current medications, continue with no added salt diet. Pt has been encouraged to exercise daily.The pt has been advised to call the office if there are any acute concerns about change in blood pressure readings at home.Diabetes Mellitus - controlled - per recent FSBS [...] glucose readings are starting to become less controlled.Chronic knee pain-recommend referral to Ortho for evaluation and management-refill pain pills 03/12/2015 Appointment: (15 min) Moderate 03/12/2015 Appointment: (30 min) Complex 03/12/2015 Patient Education: Patient Medication Summary Completed 03/12/2015 Patient Education: Hypertension Completed 03/12/2015 Appointment: Florence [facility]ño [facility]Ptel[facility] [phone] [facility] (30 min) Complex 01/24/2015 Visit Plan: HTN-elevated to but well controlled at home-no changes in current treatment Sinusitis - Pt has acute infection - pain in face, maxillary region, Pt informed to use decongestant, RX given to patient, sinus rinses also recommended. Call if symptoms do not show improvement.Double vision-recommend dilated eye exam ASAPBilateral knee pain-refill hydrocodone DM-controlled per recent FSBS log-no change in medication at this time 10/24/2014 Appointment: Graciela Ruvalcaba WPtel: [phone] [place] New Patient 10/24/2014 Patient Education: Patient Medication Summary Completed 10/24/2014 Patient Education: Hypertension Completed 10/24/2014 Appointment: Florence [facility]Ptel[facility] [phone] [facility] [place] New Patient 09/25/2014 Instructions [...]
--- OUTSIDE RECORDS SUMMARY | 2018-11-25 12:45 | XMS REPORT | CCD ---
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 Name Role Phone PP Unavailable CCM Unavailable Summary Purpose Interface Exchange Insurance Providers Payer name Policy type / Coverage type Covered constitution party ID Effective Begin Date Effective End Date [facility] [id number] 2015 Unknown Family history Father Diagnosis Age [...] Retired disabled 10/24/[address]: 7046632 Former smoker quit 1993 10/24/2014 Allergies, Adverse [...] hydrocodone 10 mg-acetaminophen 325 mg tablet RxNorm: 958228 2 Tablet(s) PO Q6 PRN 11/25/2016 12/16/2016 Active nystatin 100,000 unit/gram topical powder RxNorm: 361282 1 Gram(s) TOP QID as needed 11/25/2016 No Stop Date Active hydrocodone 10 mg-acetaminophen 325 mg tablet RxNorm: 377358 2 Tablet(s) PO Q6 PRN 10/30/2016 11/20/2016 Inactive hydrocodone 10 mg-acetaminophen 325 mg tablet RxNorm: 382904 2 Tablet(s) PO Q6 PRN 10/01/2016 10/22/2016 Inactive hydrocodone 10 mg-acetaminophen 325 mg tablet RxNorm: 374377 2 Tablet(s) PO Q6 PRN 09/01/2016 09/22/2016 Inactive Novolin 70/30 100 unit/mL subcutaneous suspension RxNorm: 981827 INJECT 100 UNITS UNDER THE SKIN TWO TIMES A DAY 08/21/2016 09/04/2016 Inactive hydrocodone 10 mg-acetaminophen 325 mg tablet RxNorm: 940154 2 Tablet(s) PO Q6 PRN 07/29/2016 08/19/2016 Inactive hydrocodone 10 mg-acetaminophen 325 mg tablet RxNorm: 091738 2 Tablet(s) PO Q6 PRN 06/30/2016 07/21/2016 Inactive Neurontin 800 mg tablet RxNorm: 191039 1 Tablet(s) PO TID 06/23/2016 12/19/2016 Active glyburide 5 mg tablet RxNorm: 194844 TAKE ONE TABLET BY MOUTH TWICE A DAY 06/12/2016 09/09/2016 Inactive hydrocodone 10 mg-acetaminophen 325 mg tablet RxNorm: 920970 2 Tablet(s) PO Q6 PRN 05/16/2016 06/06/2016 Inactive morphine ER 15 mg tablet,extended release RxNorm: 922985 1 Tablet(s) 15mg IR PO BID as needed 05/13/2016 06/11/2016 Inactive nystatin 100,000 unit/gram topical powder RxNorm: 132643 1 Gram(s) TOP QID as needed 05/13/2016 11/24/2016 Inactive gemfibrozil 600 mg tablet RxNorm: 273012 TAKE ONE TABLET BY MOUTH TWICE A DAY 05/05/2016 10/31/2016 Inactive hydrocodone 10 mg-acetaminophen 325 mg tablet RxNorm: 514100 2 Tablet(s) PO Q6 PRN 04/18/2016 05/09/2016 Inactive Keflex 500 mg capsule RxNorm: 748393 1 Capsule(s) PO TID 04/15/2016 06/22/2016 Inactive Keflex 500 mg capsule RxNorm: 350275 1 Capsule(s) PO TID 04/15/2016 04/14/2016 Inactive hydrocodone 10 mg-acetaminophen 325 mg tablet RxNorm: 921547 2 Tablet(s) PO Q6 PRN 03/19/2016 04/17/2016 Inactive captopril 100 mg tablet RxNorm: 469781 TAKE ONE TABLET BY MOUTH TWICE A DAY 03/03/2016 06/30/2016 Inactive gemfibrozil 600 mg tablet RxNorm: 927634 TAKE ONE TABLET BY MOUTH TWICE A DAY 03/03/2016 05/01/2016 Inactive hydrocodone 10 mg-acetaminophen 325 mg tablet RxNorm: 742220 2 Tablet(s) PO Q6 PRN 02/28/2016 03/18/2016 Inactive Cipro 500 mg tablet RxNorm: 938377 1 Tablet(s) PO BID 02/21/2016 02/27/2016 Inactive [SAVINGS FOR NON-COVERED DRUGS -- BIN:[id number], PCN: ASPROD1, Group: XXXXX, ID# [id number], Questions: . THIS IS NOT INSURANCE.] hydrocodone 10 mg-acetaminophen 325 mg tablet RxNorm: 712894 2 Tablet(s) PO Q6 PRN 02/01/2016 02/27/2016 Inactive hydrocodone 10 mg-acetaminophen 325 mg tablet RxNorm: 143440 2 Tablet(s) PO Q6 PRN 01/08/2016 01/31/2016 Inactive Lasix 80 mg tablet RxNorm: 224474 TAKE ONE TABLET BY MOUTH DAILY 12/18/2015 01/16/2016 Inactive Request already responded to by other means (e.g. phone or fax) gemfibrozil 600 mg tablet RxNorm: 748968 TAKE ONE TABLET BY MOUTH TWICE A DAY 12/18/2015 03/02/2016 Inactive Request already responded to by other means (e.g. phone or fax) glyburide 5 mg tablet RxNorm: 771660 TAKE ONE TABLET BY MOUTH TWICE A DAY 12/18/2015 01/16/2016 Inactive Request already responded to by other means (e.g. phone or fax) potassium chloride ER 10 mEq tablet,extended release RxNorm: 337386 TAKE ONE TABLET BY MOUTH DAILY 12/14/2015 02/11/2016 Inactive glyburide 5 mg tablet RxNorm: 292316 TAKE ONE TABLET BY MOUTH TWICE A DAY 12/14/2015 02/11/2016 Inactive potassium chloride ER 10 mEq tablet,extended release RxNorm: 531531 TAKE ONE TABLET BY MOUTH DAILY 12/14/2015 01/12/2016 Inactive Lasix 80 mg tablet RxNorm: 349785 TAKE ONE TABLET BY MOUTH DAILY 12/14/2015 02/11/2016 Inactive gemfibrozil 600 mg tablet RxNorm: 107716 TAKE ONE TABLET BY MOUTH TWICE A DAY 12/14/2015 03/12/2016 Inactive Neurontin 800 mg tablet RxNorm: 100359 1 Tablet(s) PO TID 12/10/2015 06/06/2016 Inactive morphine ER 15 mg tablet,extended release RxNorm: 328999 1 Tablet(s) 15mg IR PO BID as needed 12/03/2015 01/01/2016 Inactive Neurontin 800 mg tablet RxNorm: 179738 1 Tablet(s) PO TID 11/05/2015 12/09/2015 Inactive hydrocodone 10 mg-acetaminophen 325 mg tablet RxNorm: 448910 2 Tablet(s) PO Q6 PRN 10/23/2015 01/07/2016 Inactive hydrocodone 10 mg-acetaminophen 325 mg tablet RxNorm: 246991 2 Tablet(s) PO Q6 PRN 10/02/2015 10/22/2015 Inactive Neurontin 800 mg tablet RxNorm: 213291 1 Tablet(s) PO TID 09/27/2015 11/04/2015 Inactive Diflucan 150 mg tablet RxNorm: 644128 1 Tablet(s) PO daily 09/06/2015 09/05/2015 Inactive Keflex 500 mg capsule RxNorm: 670513 1 Capsule(s) PO TID 09/06/2015 12/09/2015 Inactive Diflucan 150 mg tablet RxNorm: 501526 1 Tablet(s) PO daily 09/06/2015 12/09/2015 Inactive Keflex 500 mg capsule RxNorm: 394286 1 Capsule(s) PO TID 09/06/2015 09/05/2015 Inactive Novolin 70/30 100 unit/mL subcutaneous suspension RxNorm: 011623 INJECT 100 UNITS UNDER THE SKIN TWO TIMES A DAY 08/20/2015 11/07/2015 Inactive morphine ER 15 mg tablet,extended release RxNorm: 665590 1 Tablet(s) 15mg IR PO BID as needed 08/08/2015 11/04/2015 Inactive Novolin 70/30 100 unit/mL subcutaneous suspension RxNorm: 031675 100 Unit(s) SQ BID 07/10/2015 08/08/2015 Inactive Novolin 70/30 100 unit/mL subcutaneous solution RxNorm: 899229 100 Unit(s) SQ BID 07/10/2015 07/09/2015 Inactive Mobic 15 mg tablet RxNorm: 547858 1 Tablet(s) PO daily 07/05/2015 12/31/2015 Inactive captopril 100 mg tablet RxNorm: 568451 1 Tablet(s) PO BID 07/05/2015 12/31/2015 Inactive Lopid 600 mg tablet RxNorm: 053588 1 Tablet(s) PO BID 07/05/2015 No Stop Date Active hydrocodone 10 mg-acetaminophen 325 mg tablet RxNorm: 373181 2 Tablet(s) PO Q6 PRN 07/05/2015 10/01/2015 Inactive Neurontin 800 mg tablet RxNorm: 319501 1 Tablet(s) PO TID 07/05/2015 09/26/2015 Inactive Humulin 70/30 100 unit/mL subcutaneous suspension RxNorm: 761518 100 100 Unit(s) SQ BID 07/05/2015 07/09/2015 Inactive may dispense 30 or 90 day supply Lyrica 75 mg capsule RxNorm: 102212 1 Capsule(s) PO BID 07/05/2015 07/04/2015 Inactive glyburide 5 mg tablet RxNorm: 261025 1 Tablet(s) PO BID 07/05/2015 12/13/2015 Inactive potassium chloride ER 10 mEq tablet,extended release RxNorm: 370835 1 Tablet(s) PO daily 07/05/2015 12/13/2015 Inactive Lasix 80 mg tablet RxNorm: 152456 1 Tablet(s) PO daily 07/05/2015 12/13/2015 Inactive Lyrica 75 mg capsule RxNorm: 529975 1 Capsule(s) PO BID 07/05/2015 11/04/2015 Inactive morphine ER 15 mg tablet,extended release RxNorm: 463937 1 Tablet(s) 15mg IR PO BID as needed 07/05/2015 08/03/2015 Inactive morphine 15 mg capsule RxNorm: 894149 1 Capsule(s) 15mg IR PO BID as needed 06/25/2015 07/04/2015 Inactive morphine 15 mg capsule RxNorm: 987460 1 Capsule(s) 15mg IR PO BID as needed 05/24/2015 06/22/2015 Inactive morphine 15 mg capsule RxNorm: 958426 1 Capsule(s) 15mg IR PO BID as needed 04/16/2015 05/14/2015 Inactive gemfibrozil 600 mg tablet RxNorm: 572270 1 Tablet(s) PO BID 04/11/2015 07/05/2015 Inactive Glucophage 1,000 mg tablet RxNorm: 816956 1 Tablet(s) PO BID 03/12/2015 03/05/2016 Inactive captopril 100 mg tablet RxNorm: 856905 1 Tablet(s) PO BID 03/12/2015 07/04/2015 Inactive potassium chloride ER 10 mEq tablet,extended release RxNorm: 907810 1 Tablet(s) PO daily 03/12/2015 07/04/2015 Inactive glyburide 5 mg tablet RxNorm: 356688 1 Tablet(s) PO BID 03/12/2015 07/04/2015 Inactive Mobic 15 mg tablet RxNorm: 881762 1 Tablet(s) PO daily 03/12/2015 07/04/2015 Inactive morphine 15 mg capsule RxNorm: 943799 1 Capsule(s) 15mg IR PO BID as needed 03/12/2015 04/10/2015 Inactive hydrocodone 10 mg-acetaminophen 325 mg tablet RxNorm: 534976 2 Tablet(s) PO Q6 PRN 03/12/2015 07/04/2015 Inactive Neurontin 800 mg tablet RxNorm: 246208 1 Tablet(s) PO TID 03/12/2015 06/09/2015 Inactive morphine 15 mg capsule RxNorm: 640926 1 Capsule(s) 15mg IR PO BID as needed 02/09/2015 03/10/2015 Inactive Glucophage 1,000 mg tablet RxNorm: 463063 1 Tablet(s) PO BID 01/31/2015 03/11/2015 Inactive Glucophage 1,000 mg tablet RxNorm: 384321 1 Tablet(s) PO BID 01/15/2015 01/30/2015 Inactive morphine 15 mg capsule RxNorm: 910832 1 Capsule(s) 15mg IR PO BID as needed 01/11/2015 02/08/2015 Inactive hydrocodone 10 mg-acetaminophen 325 mg tablet RxNorm: 749378 2 Tablet(s) PO Q6 PRN 01/11/2015 03/11/2015 Inactive morphine 15 mg capsule RxNorm: 598820 1 Capsule(s) 15mg IR PO BID as needed 12/13/2014 01/10/2015 Inactive morphine 15 mg capsule RxNorm: 928424 1 Capsule(s) PO BID as needed 12/08/2014 12/07/2014 Inactive morphine 15 mg capsule RxNorm: 257407 1 Capsule(s) PO BID as needed 12/08/2014 12/12/2014 Inactive hydrocodone 10 mg-acetaminophen 325 mg tablet RxNorm: 996660 2 Tablet(s) PO Q6 PRN 10/27/2014 01/10/2015 Inactive clindamycin 150 mg capsule RxNorm: 128475 1 Capsule(s) PO QID 10/24/2014 11/02/2014 Inactive hydrocodone 10 mg-acetaminophen 325 mg tablet RxNorm: 737087 1 Tablet(s) PO Q6 PRN 10/24/2014 10/26/2014 Inactive Cipro 500 mg tablet RxNorm: 962160 1 Tablet(s) PO BID 09/08/2014 09/17/2014 Inactive [SAVINGS FOR NON-COVERED DRUGS -- BIN:[id number], PCN: ASPROD1, Group: XXXXX, ID# [id number], Questions: . THIS IS NOT INSURANCE.] Flagyl 500 mg tablet RxNorm: 559126 1 Tablet(s) PO TID 09/08/2014 09/17/2014 Inactive [SAVINGS FOR NON-COVERED DRUGS -- BIN:665640, PCN: ASPROD1, Group: XXXXX, ID# [id number], Questions: . THIS IS NOT INSURANCE.] Flagyl 500 mg tablet RxNorm: 994098 1 Tablet(s) PO TID 09/08/2014 09/07/2014 Inactive Cipro 500 mg tablet RxNorm: 943903 1 Tablet(s) PO BID 09/08/2014 09/07/2014 Inactive Promethazine VC-Codeine 6.25 mg-5 mg-10 mg/5 mL syrup RxNorm: 475245 to 10 Milliliter(s) PO Q6 No Start Date Active multivitamin oral RxNorm: 48120 oral No Start Date Active Fish Oil capsule RxNorm: Capsule(s) PO 1200 mg No Start Date Active melatonin 5 mg tablet RxNorm: 094404 2 Tablet(s) PO QHS No Start Date Active vitamin E 1,000 unit tablet RxNorm: 137227 oral No Start Date Active Calcium 600 + D(3) oral RxNorm: 867324 oral No Start Date Active Multiple Vitamins Daily oral RxNorm: 09974 oral No Start Date Active oxycodone 10 mg tablet RxNorm: 6442734 1 Tablet(s) PO Q6 PRN No Start Date Active Lopid 600 mg tablet RxNorm: 556561 1 Tablet(s) PO BID No Start Date 04/10/2015 Inactive vitamin I88-migwnpr B1 intramuscular RxNorm: 46949 intramuscular No Start Date 11/04/2015 Inactive Mobic 15 mg tablet RxNorm: 281951 1 Tablet(s) PO daily No Start Date 03/11/2015 Inactive Vitamin D3 2,000 unit capsule RxNorm: 601576 1 Capsule(s) PO daily No Start Date 11/04/2015 Inactive Vitamin C 1,000 mg tablet RxNorm: 727208 1 Tablet(s) PO daily No Start Date 11/04/2015 Inactive captopril 100 mg tablet RxNorm: 792452 1 Tablet(s) PO BID No Start Date 03/11/2015 Inactive nystatin 100,000 unit/gram topical powder RxNorm: 998804 1 Gram(s) TOP QID as needed No Start Date 05/12/2016 Inactive Neurontin 800 mg tablet RxNorm: 357056 1 Tablet(s) PO TID No Start Date 03/11/2015 Inactive KCL 20 meq RxNorm: 1 Tablet(s) PO daily No Start Date 03/11/2015 Inactive Lasix 80 mg tablet RxNorm: 466722 1 Tablet(s) PO daily No Start Date 07/04/2015 Inactive Lyrica 75 mg capsule RxNorm: 654173 1 Capsule(s) PO BID No Start Date 07/04/2015 Inactive glyburide 5 mg tablet RxNorm: 183166 1 Tablet(s) PO BID No Start Date 03/11/2015 Inactive hydrocodone 10 mg-acetaminophen 325 mg tablet RxNorm: 116345 1 Tablet(s) PO Q6 PRN No Start Date 10/23/2014 Inactive Glucophage 1,000 mg tablet RxNorm: 433721 2 Tablet(s) PO daily No Start Date 01/14/2015 Inactive Humulin 70/30 100 unit/mL subcutaneous suspension RxNorm: 777710 100 Unit(s) SQ BID No Start Date [...] Code Item Item Code Result Date %Hba1C Pxk233 % HbA1c 98853- 6 7.3 % 07/05/2015 %Hba1C Ybe945 Gluc Ave 163 mg/dL 07/05/2015 Cbc With [...] 93.6 fl 07/05/2015 Cbc With Differential Ord2 [place]% 8.1 % 07/05/2015 Cbc With Differential Ord2 [...] 1.65 K/ul 07/05/2015 Cbc With Differential Ord2 [place] ABS# 0.7 K/ul 07/05/2015 Cbc With Differential Ord2 Eos ABS# 0.4 K/ul 07/05/2015 Cbc With Differential Ord2 Baso ABS# 0.0 K/ul 07/05/2015 Cbc With Differential Ord2 New Analyzer Notice Please note new ref ranges starting 05-30-2015 due to implemntation of new five part differential hematolgy analyzer. 07/05/2015 Tsh Ord6 hTSH II 1.45 uIU/mL 07/05/2015 Total Psa Ord10 PSA 0.14 ng/mL 07/05/2015 Comp Metabolic Zdk932 NA 138 mEq/L 07/05/2015 Comp Metabolic Dah595 K 4.7 mEq/L 07/05/2015 Comp Metabolic Hdn782 CL 101 mEq/L 07/05/2015 Comp Metabolic Fym026 CO2 27.0 mEq/L 07/05/2015 Comp Metabolic Rjm979 ANION GAP 15 07/05/2015 Comp Metabolic Icy905 GLUCOSE 152 mg/dL 07/05/2015 Comp Metabolic Akq430 Creat 0.8 mg/dL 07/05/2015 Comp Metabolic Dqc916 eGFR 106 ml/min/1.73m2 07/05/2015 Comp Metabolic Qrm955 BUN 14 mg/dL 07/05/2015 Comp Metabolic Kpl648 B/C Ratio 17.7 Ratio 07/05/2015 Comp Metabolic Ilb048 CALCIUM 9.4 mg/dL 07/05/2015 Comp Metabolic Dcn568 ALK PHOS 77 U/L 07/05/2015 Comp Metabolic Oqf297 AST(SGOT) 23 U/L 07/05/2015 Comp Metabolic Lcr808 ALT(SGPT) 25 U/L 07/05/2015 Comp Metabolic Vyt980 BILI T 0.6 mg/dL 07/05/2015 Comp Metabolic Phb649 ALBUMIN 4.0 g/dL 07/05/2015 Comp Metabolic Djb825 TPRO 6.5 g/dL 07/05/2015 Comp Metabolic Gvd427 GLOB 2.5 g/dL 07/05/2015 Comp Metabolic Bnr208 A/G Ratio 1.6 Ratio 07/05/2015 Comp Metabolic Tse958 Osmo 279 mOsmo 07/05/2015 Cbc With Differential [...] Differential Ord2 RDW 13.3 % 03/12/2015 %Hba1C Hhd602 % HbA1c 64587- 6 6.6 % 03/12/2015 %Hba1C Bgk046 Gluc Ave 143 mg/dL 03/12/2015 Comp Metabolic Dht612 NA 135 mEq/L 03/12/2015 Comp Metabolic Caz846 K 4.7 mEq/L 03/12/2015 Comp Metabolic Jgd260 CL 98 mEq/L 03/12/2015 Comp Metabolic Oik275 CO2 27.0 mEq/L 03/12/2015 Comp Metabolic Rvb781 ANION GAP 15 03/12/2015 Comp Metabolic Jld717 GLUCOSE 232 mg/dL 03/12/2015 Comp Metabolic Yos732 Creat 0.8 mg/dL 03/12/2015 Comp Metabolic Fiz796 eGFR 104 ml/min/1.73m2 03/12/2015 Comp Metabolic Zux193 BUN 19 mg/dL 03/12/2015 Comp Metabolic Jug774 B/C Ratio 23.8 Ratio 03/12/2015 Comp Metabolic Ish545 CALCIUM 9.2 mg/dL 03/12/2015 Comp Metabolic Ydg700 ALK PHOS 74 U/L 03/12/2015 Comp Metabolic Eti206 AST(SGOT) 24 U/L 03/12/2015 Comp Metabolic Egu940 ALT(SGPT) 29 U/L 03/12/2015 Comp Metabolic Scf801 BILI T 0.4 mg/dL 03/12/2015 Comp Metabolic Vwf958 ALBUMIN 4.2 g/dL 03/12/2015 Comp Metabolic Boh473 TPRO 6.5 g/dL 03/12/2015 Comp Metabolic Kax700 GLOB 2.3 g/dL 03/12/2015 Comp Metabolic Uht548 A/G Ratio 1.8 Ratio 03/12/2015 Comp Metabolic Hqe156 Osmo 280 mOsmo 03/12/2015 Review of Systems [...] Codes Date URINALYSIS NONAUTO W/O SCOPE CPT-4: [id number] 02/22/2016 Vital Signs Date Vital 11/05/2015 Blood [...] Encounters Encounter Performer Location Codes Date () 65623 EST. PATIENT, LEVEL IV Diagnosis: Type 2 diabetes mellitus with diabetic polyneuropathy[ICD10: E11.42] Diagnosis: Essential (primary) hypertension[ICD10: I10] Diagnosis: Panniculitis, unspecified[ICD10: M79.3] Diagnosis: Bilateral primary osteoarthritis of knee[ICD10: M17.0] Diagnosis: Heart failure, unspecified[ICD10: I50.9] Graciela Treviño MD, [facility] CPT-4: 25210 11/05/2015 [id number] EST. PATIENT, LEVEL IV Diagnosis: Encounter for follow-up examination after completed treatment for conditions other than malignant neoplasm[ICD10: Z09] Ashlyn Treviño MD, [facility] CPT-4: 17613 09/27/2015 09719) [id number] EST. PATIENT, LEVEL IV Diagnosis: Type 2 diabetes mellitus with diabetic polyneuropathy[ICD10: E11.42] Diagnosis: Essential (primary) hypertension[ICD10: I10] Diagnosis: Chronic pain syndrome[ICD10: G89.4] Graciela Treviño MD, [facility] CPT-4: 46313 07/05/2015 09747 84965 EST. 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..] Pending 11/05/2015 Care Plan: %Hba1C LOINC : 53902-7 Pending 11/05/2015 Visit Plan: Hospital follow up [...] Hypertension Completed 03/12/2015 Appointment: Florence [facility] [phone] [facility] (30 min) Complex 01/24/2015 Visit Plan: HTN-elevated [...] this time 10/24/2014 Appointment: Graciela Ruvalcaba WPtel: [facility] [place] [place] New Patient 10/24/2014 Patient Education: Patient Medication Summary Completed 10/24/2014 Patient Education: Hypertension Completed 10/24/2014 Appointment: Florence [facility] [phone] [facility] [place] New Patient 09/25/2014 Instructions Comment [...]
--- OUTSIDE RECORDS SUMMARY | 2018-11-25 12:47 | XMS REPORT | CCD ---
Author Author Florence Treviño Organization Florence Treviño MD, [facility] Address [address] [place] [address] Phone Care Team Providers Care Credit Rating Inspector Name Role Phone PP Unavailable CCM Unavailable Summary Purpose Interface Exchange Insurance Providers Payer name Policy type / Coverage type Covered alliance party ID Effective Begin Date Effective End Date [facility] [id number] 2015 Unknown Family history Father Diagnosis Age [...] Retired disabled 10/24/[address]: 9559115 Former smoker quit 1993 10/24/2014 Allergies, Adverse [...] hydrocodone 10 mg-acetaminophen 325 mg tablet RxNorm: 209064 2 Tablet(s) PO Q6 PRN 10/30/2016 11/20/2016 Active hydrocodone 10 mg-acetaminophen 325 mg tablet RxNorm: 210300 2 Tablet(s) PO Q6 PRN 10/01/2016 10/22/2016 Inactive hydrocodone 10 mg-acetaminophen 325 mg tablet RxNorm: 339920 2 Tablet(s) PO Q6 PRN 09/01/2016 09/22/2016 Inactive Novolin 70/30 100 unit/mL subcutaneous suspension RxNorm: 851859 INJECT 100 UNITS UNDER THE SKIN TWO TIMES A DAY 08/21/2016 09/04/2016 Inactive hydrocodone 10 mg-acetaminophen 325 mg tablet RxNorm: 347201 2 Tablet(s) PO Q6 PRN 07/29/2016 08/19/2016 Inactive hydrocodone 10 mg-acetaminophen 325 mg tablet RxNorm: 518553 2 Tablet(s) PO Q6 PRN 06/30/2016 07/21/2016 Inactive Neurontin 800 mg tablet RxNorm: 712189 1 Tablet(s) PO TID 06/23/2016 12/19/2016 Active glyburide 5 mg tablet RxNorm: 781639 TAKE ONE TABLET BY MOUTH TWICE A DAY 06/12/2016 09/09/2016 Inactive hydrocodone 10 mg-acetaminophen 325 mg tablet RxNorm: 500024 2 Tablet(s) PO Q6 PRN 05/16/2016 06/06/2016 Inactive nystatin 100,000 unit/gram topical powder RxNorm: 814918 1 Gram(s) TOP QID as needed 05/13/2016 No Stop Date Active morphine ER 15 mg tablet,extended release RxNorm: 571482 1 Tablet(s) 15mg IR PO BID as needed 05/13/2016 06/11/2016 Inactive gemfibrozil 600 mg tablet RxNorm: 466955 TAKE ONE TABLET BY MOUTH TWICE A DAY 05/05/2016 10/31/2016 Active hydrocodone 10 mg-acetaminophen 325 mg tablet RxNorm: 908877 2 Tablet(s) PO Q6 PRN 04/18/2016 05/09/2016 Inactive Keflex 500 mg capsule RxNorm: 288496 1 Capsule(s) PO TID 04/15/2016 06/22/2016 Inactive Keflex 500 mg capsule RxNorm: 198573 1 Capsule(s) PO TID 04/15/2016 04/14/2016 Inactive hydrocodone 10 mg-acetaminophen 325 mg tablet RxNorm: 217890 2 Tablet(s) PO Q6 PRN 03/19/2016 04/17/2016 Inactive captopril 100 mg tablet RxNorm: 385420 TAKE ONE TABLET BY MOUTH TWICE A DAY 03/03/2016 06/30/2016 Inactive gemfibrozil 600 mg tablet RxNorm: 655036 TAKE ONE TABLET BY MOUTH TWICE A DAY 03/03/2016 05/01/2016 Inactive hydrocodone 10 mg-acetaminophen 325 mg tablet RxNorm: 121765 2 Tablet(s) PO Q6 PRN 02/28/2016 03/18/2016 Inactive Cipro 500 mg tablet RxNorm: 996712 1 Tablet(s) PO BID 02/21/2016 02/27/2016 Inactive [SAVINGS FOR NON-COVERED DRUGS -- BIN:023544, PCN: [id number], Group: XXXXX, ID# [id number], Questions: . THIS IS NOT INSURANCE.] hydrocodone 10 mg-acetaminophen 325 mg tablet RxNorm: 654002 2 Tablet(s) PO Q6 PRN 02/01/2016 02/27/2016 Inactive hydrocodone 10 mg-acetaminophen 325 mg tablet RxNorm: 476542 2 Tablet(s) PO Q6 PRN 01/08/2016 01/31/2016 Inactive Lasix 80 mg tablet RxNorm: 114593 TAKE ONE TABLET BY MOUTH DAILY 12/18/2015 01/16/2016 Inactive Request already responded to by other means (e.g. phone or fax) gemfibrozil 600 mg tablet RxNorm: 545308 TAKE ONE TABLET BY MOUTH TWICE A DAY 12/18/2015 03/02/2016 Inactive Request already responded to by other means (e.g. phone or fax) glyburide 5 mg tablet RxNorm: 286408 TAKE ONE TABLET BY MOUTH TWICE A DAY 12/18/2015 01/16/2016 Inactive Request already responded to by other means (e.g. phone or fax) potassium chloride ER 10 mEq tablet,extended release RxNorm: 358557 TAKE ONE TABLET BY MOUTH DAILY 12/14/2015 02/11/2016 Inactive glyburide 5 mg tablet RxNorm: 266985 TAKE ONE TABLET BY MOUTH TWICE A DAY 12/14/2015 02/11/2016 Inactive potassium chloride ER 10 mEq tablet,extended release RxNorm: 460179 TAKE ONE TABLET BY MOUTH DAILY 12/14/2015 01/12/2016 Inactive Lasix 80 mg tablet RxNorm: 107110 TAKE ONE TABLET BY MOUTH DAILY 12/14/2015 02/11/2016 Inactive gemfibrozil 600 mg tablet RxNorm: 324255 TAKE ONE TABLET BY MOUTH TWICE A DAY 12/14/2015 03/12/2016 Inactive Neurontin 800 mg tablet RxNorm: 619220 1 Tablet(s) PO TID 12/10/2015 06/06/2016 Inactive morphine ER 15 mg tablet,extended release RxNorm: 827977 1 Tablet(s) 15mg IR PO BID as needed 12/03/2015 01/01/2016 Inactive Neurontin 800 mg tablet RxNorm: 839619 1 Tablet(s) PO TID 11/05/2015 12/09/2015 Inactive hydrocodone 10 mg-acetaminophen 325 mg tablet RxNorm: 384888 2 Tablet(s) PO Q6 PRN 10/23/2015 01/07/2016 Inactive hydrocodone 10 mg-acetaminophen 325 mg tablet RxNorm: 272558 2 Tablet(s) PO Q6 PRN 10/02/2015 10/22/2015 Inactive Neurontin 800 mg tablet RxNorm: 600072 1 Tablet(s) PO TID 09/27/2015 11/04/2015 Inactive Diflucan 150 mg tablet RxNorm: 133040 1 Tablet(s) PO daily 09/06/2015 09/05/2015 Inactive Keflex 500 mg capsule RxNorm: 301704 1 Capsule(s) PO TID 09/06/2015 12/09/2015 Inactive Diflucan 150 mg tablet RxNorm: 914154 1 Tablet(s) PO daily 09/06/2015 12/09/2015 Inactive Keflex 500 mg capsule RxNorm: 904167 1 Capsule(s) PO TID 09/06/2015 09/05/2015 Inactive Novolin 70/30 100 unit/mL subcutaneous suspension RxNorm: 902862 INJECT 100 UNITS UNDER THE SKIN TWO TIMES A DAY 08/20/2015 11/07/2015 Inactive morphine ER 15 mg tablet,extended release RxNorm: 782225 1 Tablet(s) 15mg IR PO BID as needed 08/08/2015 11/04/2015 Inactive Novolin 70/30 100 unit/mL subcutaneous suspension RxNorm: 980106 100 Unit(s) SQ BID 07/10/2015 08/08/2015 Inactive Novolin 70/30 100 unit/mL subcutaneous solution RxNorm: 290280 100 Unit(s) SQ BID 07/10/2015 07/09/2015 Inactive Mobic 15 mg tablet RxNorm: 707132 1 Tablet(s) PO daily 07/05/2015 12/31/2015 Inactive captopril 100 mg tablet RxNorm: 606109 1 Tablet(s) PO BID 07/05/2015 12/31/2015 Inactive Lopid 600 mg tablet RxNorm: 216294 1 Tablet(s) PO BID 07/05/2015 No Stop Date Active hydrocodone 10 mg-acetaminophen 325 mg tablet RxNorm: 941584 2 Tablet(s) PO Q6 PRN 07/05/2015 10/01/2015 Inactive Neurontin 800 mg tablet RxNorm: 976862 1 Tablet(s) PO TID 07/05/2015 09/26/2015 Inactive Humulin 70/30 100 unit/mL subcutaneous suspension RxNorm: 454837 100 100 Unit(s) SQ BID 07/05/2015 07/09/2015 Inactive may dispense 30 or 90 day supply Lyrica 75 mg capsule RxNorm: 179328 1 Capsule(s) PO BID 07/05/2015 07/04/2015 Inactive glyburide 5 mg tablet RxNorm: 984615 1 Tablet(s) PO BID 07/05/2015 12/13/2015 Inactive potassium chloride ER 10 mEq tablet,extended release RxNorm: 054006 1 Tablet(s) PO daily 07/05/2015 12/13/2015 Inactive Lasix 80 mg tablet RxNorm: 985686 1 Tablet(s) PO daily 07/05/2015 12/13/2015 Inactive Lyrica 75 mg capsule RxNorm: 828115 1 Capsule(s) PO BID 07/05/2015 11/04/2015 Inactive morphine ER 15 mg tablet,extended release RxNorm: 093940 1 Tablet(s) 15mg IR PO BID as needed 07/05/2015 08/03/2015 Inactive morphine 15 mg capsule RxNorm: 357511 1 Capsule(s) 15mg IR PO BID as needed 06/25/2015 07/04/2015 Inactive morphine 15 mg capsule RxNorm: 742897 1 Capsule(s) 15mg IR PO BID as needed 05/24/2015 06/22/2015 Inactive morphine 15 mg capsule RxNorm: 241406 1 Capsule(s) 15mg IR PO BID as needed 04/16/2015 05/14/2015 Inactive gemfibrozil 600 mg tablet RxNorm: 881374 1 Tablet(s) PO BID 04/11/2015 07/05/2015 Inactive Glucophage 1,000 mg tablet RxNorm: 777450 1 Tablet(s) PO BID 03/12/2015 03/05/2016 Inactive captopril 100 mg tablet RxNorm: 347477 1 Tablet(s) PO BID 03/12/2015 07/04/2015 Inactive potassium chloride ER 10 mEq tablet,extended release RxNorm: 685829 1 Tablet(s) PO daily 03/12/2015 07/04/2015 Inactive glyburide 5 mg tablet RxNorm: 302012 1 Tablet(s) PO BID 03/12/2015 07/04/2015 Inactive Mobic 15 mg tablet RxNorm: 435377 1 Tablet(s) PO daily 03/12/2015 07/04/2015 Inactive morphine 15 mg capsule RxNorm: 690757 1 Capsule(s) 15mg IR PO BID as needed 03/12/2015 04/10/2015 Inactive hydrocodone 10 mg-acetaminophen 325 mg tablet RxNorm: 626459 2 Tablet(s) PO Q6 PRN 03/12/2015 07/04/2015 Inactive Neurontin 800 mg tablet RxNorm: 330940 1 Tablet(s) PO TID 03/12/2015 06/09/2015 Inactive morphine 15 mg capsule RxNorm: 042708 1 Capsule(s) 15mg IR PO BID as needed 02/09/2015 03/10/2015 Inactive Glucophage 1,000 mg tablet RxNorm: 651300 1 Tablet(s) PO BID 01/31/2015 03/11/2015 Inactive Glucophage 1,000 mg tablet RxNorm: 539831 1 Tablet(s) PO BID 01/15/2015 01/30/2015 Inactive morphine 15 mg capsule RxNorm: 704650 1 Capsule(s) 15mg IR PO BID as needed 01/11/2015 02/08/2015 Inactive hydrocodone 10 mg-acetaminophen 325 mg tablet RxNorm: 308021 2 Tablet(s) PO Q6 PRN 01/11/2015 03/11/2015 Inactive morphine 15 mg capsule RxNorm: 940629 1 Capsule(s) 15mg IR PO BID as needed 12/13/2014 01/10/2015 Inactive morphine 15 mg capsule RxNorm: 754468 1 Capsule(s) PO BID as needed 12/08/2014 12/07/2014 Inactive morphine 15 mg capsule RxNorm: 262951 1 Capsule(s) PO BID as needed 12/08/2014 12/12/2014 Inactive hydrocodone 10 mg-acetaminophen 325 mg tablet RxNorm: 809583 2 Tablet(s) PO Q6 PRN 10/27/2014 01/10/2015 Inactive clindamycin 150 mg capsule RxNorm: 672496 1 Capsule(s) PO QID 10/24/2014 11/02/2014 Inactive hydrocodone 10 mg-acetaminophen 325 mg tablet RxNorm: 266476 1 Tablet(s) PO Q6 PRN 10/24/2014 10/26/2014 Inactive Cipro 500 mg tablet RxNorm: 502934 1 Tablet(s) PO BID 09/08/2014 09/17/2014 Inactive [SAVINGS FOR NON-COVERED DRUGS -- BIN:118227, PCN: ASPROD1, Group: XXXXX, ID# [id number], Questions: . THIS IS NOT INSURANCE.] Flagyl 500 mg tablet RxNorm: 593990 1 Tablet(s) PO TID 09/08/2014 09/17/2014 Inactive [SAVINGS FOR NON-COVERED DRUGS -- BIN:034532, PCN: ASPROD1, Group: XXXXX, ID# [id number], Questions: . THIS IS NOT INSURANCE.] Flagyl 500 mg tablet RxNorm: 707319 1 Tablet(s) PO TID 09/08/2014 09/07/2014 Inactive Cipro 500 mg tablet RxNorm: 863617 1 Tablet(s) PO BID 09/08/2014 09/07/2014 Inactive Promethazine VC-Codeine 6.25 mg-5 mg-10 mg/5 mL syrup RxNorm: 415641 to 10 Milliliter(s) PO Q6 No Start Date Active multivitamin oral RxNorm: 44561 oral No Start Date Active Fish Oil capsule RxNorm: Capsule(s) PO 1200 mg No Start Date Active melatonin 5 mg tablet RxNorm: 681986 2 Tablet(s) PO QHS No Start Date Active vitamin E 1,000 unit tablet RxNorm: 805611 oral No Start Date Active Calcium 600 + D(3) oral RxNorm: 322627 oral No Start Date Active Multiple Vitamins Daily oral RxNorm: 76972 oral No Start Date Active oxycodone 10 mg tablet RxNorm: 9815251 1 Tablet(s) PO Q6 PRN No Start Date Active Lopid 600 mg tablet RxNorm: 902036 1 Tablet(s) PO BID No Start Date 04/10/2015 Inactive vitamin L50-iwpxpwz B1 intramuscular RxNorm: 96702 intramuscular No Start Date 11/04/2015 Inactive Mobic 15 mg tablet RxNorm: 191367 1 Tablet(s) PO daily No Start Date 03/11/2015 Inactive Vitamin D3 2,000 unit capsule RxNorm: 150910 1 Capsule(s) PO daily No Start Date 11/04/2015 Inactive Vitamin C 1,000 mg tablet RxNorm: 201061 1 Tablet(s) PO daily No Start Date 11/04/2015 Inactive captopril 100 mg tablet RxNorm: 338644 1 Tablet(s) PO BID No Start Date 03/11/2015 Inactive nystatin 100,000 unit/gram topical powder RxNorm: 702616 1 Gram(s) TOP QID as needed No Start Date 05/12/2016 Inactive Neurontin 800 mg tablet RxNorm: 412030 1 Tablet(s) PO TID No Start Date 03/11/2015 Inactive KCL 20 meq RxNorm: 1 Tablet(s) PO daily No Start Date 03/11/2015 Inactive Lasix 80 mg tablet RxNorm: 460833 1 Tablet(s) PO daily No Start Date 07/04/2015 Inactive Lyrica 75 mg capsule RxNorm: 421082 1 Capsule(s) PO BID No Start Date 07/04/2015 Inactive glyburide 5 mg tablet RxNorm: 696914 1 Tablet(s) PO BID No Start Date 03/11/2015 Inactive hydrocodone 10 mg-acetaminophen 325 mg tablet RxNorm: 693021 1 Tablet(s) PO Q6 PRN No Start Date 10/23/2014 Inactive Glucophage 1,000 mg tablet RxNorm: 186239 2 Tablet(s) PO daily No Start Date 01/14/2015 Inactive Humulin 70/30 100 unit/mL subcutaneous suspension RxNorm: 922518 100 Unit(s) SQ BID No Start Date [...] Observation Code Item Item Code Result Date Comp Metabolic Rpu666 NA 138 mEq/L 07/05/2015 Comp Metabolic Ema015 K 4.7 mEq/L 07/05/2015 Comp Metabolic Wkj896 CL 101 mEq/L 07/05/2015 Comp Metabolic Tiq677 CO2 27.0 mEq/L 07/05/2015 Comp Metabolic Fui374 ANION GAP 15 07/05/2015 Comp Metabolic Ojp677 GLUCOSE 152 mg/dL 07/05/2015 Comp Metabolic Pdz681 Creat 0.8 mg/dL 07/05/2015 Comp Metabolic Tee644 eGFR 106 ml/min/1.73m2 07/05/2015 Comp Metabolic Bfe632 BUN 14 mg/dL 07/05/2015 Comp Metabolic Tsi617 B/C Ratio 17.7 Ratio 07/05/2015 Comp Metabolic Rwf003 CALCIUM 9.4 mg/dL 07/05/2015 Comp Metabolic Isx936 ALK PHOS 77 U/L 07/05/2015 Comp Metabolic Ues102 AST(SGOT) 23 U/L 07/05/2015 Comp Metabolic Jjh203 ALT(SGPT) 25 U/L 07/05/2015 Comp Metabolic Mpl718 BILI T 0.6 mg/dL 07/05/2015 Comp Metabolic Qqm388 ALBUMIN 4.0 g/dL 07/05/2015 Comp Metabolic Myy428 TPRO 6.5 g/dL 07/05/2015 Comp Metabolic Zfr444 GLOB 2.5 g/dL 07/05/2015 Comp Metabolic Iih258 A/G Ratio 1.6 Ratio 07/05/2015 Comp Metabolic Jar820 Osmo 279 mOsmo 07/05/2015 Total Psa Ord10 PSA 0.14 ng/mL 07/05/2015 Tsh Ord6 hTSH II 1.45 uIU/mL 07/05/2015 Cbc With Differential Ord2 WBC 8.10 K/ul 07/05/2015 Cbc With Differential Ord2 RBC 4.36 M/ul 07/05/2015 Cbc With Differential Ord2 HGB 13.3 g/dl 07/05/2015 Cbc With Differential Ord2 HCT 40.8 % 07/05/2015 Cbc With Differential Ord2 Neut% 66.8 % 07/05/2015 Cbc With Differential Ord2 Lymph% 20.4 % 07/05/2015 Cbc With Differential Ord2 MCV 93.6 fl 07/05/2015 Cbc With Differential Ord2 MCH 30.5 pg 07/05/2015 Cbc With Differential Ord2 Harmon% 8.1 % 07/05/2015 Cbc With Differential Ord2 [...] 1.65 K/ul 07/05/2015 Cbc With Differential Ord2 Harmon ABS# 0.7 K/ul 07/05/2015 Cbc With Differential Ord2 Eos ABS# 0.4 K/ul 07/05/2015 Cbc With Differential Ord2 Baso ABS# 0.0 K/ul 07/05/2015 Cbc With Differential Ord2 New Analyzer Notice Please note new ref ranges starting 05-30-2015 due to implemntation of new five part differential hematolgy analyzer. 07/05/2015 %Hba1C Yxy945 % HbA1c 59371- 6 7.3 % 07/05/2015 %Hba1C Zbs336 Gluc Ave 163 mg/dL 07/05/2015 Comp Metabolic Zrk840 NA 135 mEq/L 03/12/2015 Comp Metabolic Zrm612 K 4.7 mEq/L 03/12/2015 Comp Metabolic Nqd670 CL 98 mEq/L 03/12/2015 Comp Metabolic Ifa348 CO2 27.0 mEq/L 03/12/2015 Comp Metabolic Bzr729 ANION GAP 15 03/12/2015 Comp Metabolic Lma804 GLUCOSE 232 mg/dL 03/12/2015 Comp Metabolic Ais424 Creat 0.8 mg/dL 03/12/2015 Comp Metabolic Wfn225 eGFR 104 ml/min/1.73m2 03/12/2015 Comp Metabolic Hku622 BUN 19 mg/dL 03/12/2015 Comp Metabolic Jsq274 B/C Ratio 23.8 Ratio 03/12/2015 Comp Metabolic Wft950 CALCIUM 9.2 mg/dL 03/12/2015 Comp Metabolic Jbe116 ALK PHOS 74 U/L 03/12/2015 Comp Metabolic Koh990 AST(SGOT) 24 U/L 03/12/2015 Comp Metabolic Yhe513 ALT(SGPT) 29 U/L 03/12/2015 Comp Metabolic Fkb959 BILI T 0.4 mg/dL 03/12/2015 Comp Metabolic Lnc234 ALBUMIN 4.2 g/dL 03/12/2015 Comp Metabolic Mcw366 TPRO 6.5 g/dL 03/12/2015 Comp Metabolic Zmy961 GLOB 2.3 g/dL 03/12/2015 Comp Metabolic Rri502 A/G Ratio 1.8 Ratio 03/12/2015 Comp Metabolic Znb613 Osmo 280 mOsmo 03/12/2015 %Hba1C Mlt030 % HbA1c 36928- 6 6.6 % 03/12/2015 %Hba1C Hco056 Gluc Ave 143 mg/dL 03/12/2015 Cbc With Differential Ord2 WBC 7.3 K/uL [...] With Differential Ord2 RDW 13.3 % 03/12/2015 Review of Systems System Result Effective [...] Codes Date URINALYSIS NONAUTO W/O SCOPE CPT-4: 70039Hqdsoyx 02/22/2016 Vital Signs Date Vital 11/05/2015 Blood [...] data Encounters Encounter Performer Location Codes Date 49344 EST. PATIENT, LEVEL IV Diagnosis: Type 2 diabetes mellitus with diabetic polyneuropathy[ICD10: E11.42] Diagnosis: Essential (primary) hypertension[ICD10: I10] Diagnosis: Panniculitis, unspecified[ICD10: M79.3] Diagnosis: Bilateral primary osteoarthritis of knee[ICD10: M17.0] Diagnosis: Heart failure, unspecified[ICD10: I50.9] Graciela Treviño MD, [facility] CPT-4: 75122 11/05/2015 [id number] EST. PATIENT, LEVEL IV Diagnosis: Encounter for follow-up examination after completed treatment for conditions other than malignant neoplasm[ICD10: Z09] Ashlyn Treviño MD, [facility] CPT-4: 49436 09/27/2015 ([id number]) 47267 EST. PATIENT, LEVEL IV Diagnosis: Type 2 diabetes mellitus with diabetic polyneuropathy[ICD10: E11.42] Diagnosis: Essential (primary) hypertension[ICD10: I10] Diagnosis: Chronic pain syndrome[ICD10: G89.4] [facility] CPT-4: 98673 07/05/2015 ([id number]) 89947 EST. 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] Diagnosis: ACUTE SINUSITIS[ICD9: 461.9] Florence Treviño MD, [facility] CPT-4: 93892 10/24/2014 Plan of Care Planned Activity Notes Codes Status Date Appointment: Nurse Visit 02/22/2016 Patient Education: Patient Medication Summary Completed 02/22/2016 Appointment: Graciel[facility] Ruvalcaba [phone] ([facility] min) Complex 02/07/2016 [facility]ment[facility] ([facility] Moderate 01/10/2016 Visit Plan: [...] Pending 11/05/2015 Care Plan: %Hba1C LOINC : 60346-5 Pending 11/05/2015 Visit Plan: Hospital follow up [...] Completed 03/12/2015 Appointment: Florence Treviño WPtel: [phone] [facility] (30 min) Complex 01/24/2015 Visit [...] this time 10/24/2014 Appointment: Graciela Ruvalcaba WPtel: [phone] [phone] [place] New Patient 10/24/2014 Patient Education: Patient Medication Summary Completed 10/24/2014 Patient Education: Hypertension Completed 10/24/2014 Appointment: Florence Treviño WPtel: [phone] [facility] [place] New Patient 09/25/2014 Instructions Comment [...]
--- OUTSIDE RECORDS SUMMARY | 2018-11-25 12:49 | XMS REPORT | CCD ---
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 Name Role Phone PP Unavailable CCM Unavailable Summary Purpose Interface Exchange Insurance Providers Payer name Policy type / Coverage type Covered alliance party ID Effective Begin Date Effective End Date [facility] [id number] 2015 Unknown Family history Father Diagnosis Age [...] Retired disabled 10/24/[address]: 1465881 Former smoker quit 1993 10/24/2014 Allergies, Adverse [...] hydrocodone 10 mg-acetaminophen 325 mg tablet RxNorm: 279664 2 Tablet(s) PO Q6 PRN 09/07/2018 09/28/2018 Active hydrocodone 10 mg-acetaminophen 325 mg tablet RxNorm: 103598 2 Tablet(s) PO Q6 PRN 07/05/2018 07/26/2018 Inactive mupirocin 2 % topical ointment RxNorm: 974083 APPLY TO AFFECTED AREA(S) TWO TIMES A DAY 07/05/2018 07/26/2018 Inactive levothyroxine 25 mcg tablet RxNorm: 539281 1 Tablet(s) PO daily 06/03/2018 09/30/2018 Active levothyroxine 25 mcg tablet RxNorm: 605506 1 Tablet(s) PO daily 06/03/2018 06/02/2018 Inactive hydrocodone 10 mg-acetaminophen 325 mg tablet RxNorm: 178970 2 Tablet(s) PO Q6 PRN 05/25/2018 06/15/2018 Inactive hydrocodone 10 mg-acetaminophen 325 mg tablet RxNorm: 265317 2 Tablet(s) PO Q6 PRN 04/13/2018 05/04/2018 Inactive hydrocodone 10 mg-acetaminophen 325 mg tablet RxNorm: 473863 2 Tablet(s) PO Q6 PRN 03/12/2018 04/02/2018 Inactive potassium chloride ER 10 mEq tablet,extended release RxNorm: 122230 TAKE ONE TABLET BY MOUTH FOUR TIMES A WEEK NEEDED 02/24/2018 07/13/2018 Inactive Neurontin 800 mg tablet RxNorm: 326521 TAKE ONE TABLET BY MOUTH THREE TIMES A DAY 02/09/2018 05/09/2018 Inactive nystatin 100,000 unit/gram topical powder RxNorm: 125572 APPLY ONE GRAM TOPICALLY FOUR TIMES A DAY NEEDED 02/03/2018 02/14/2018 Inactive hydrocodone 10 mg-acetaminophen 325 mg tablet RxNorm: 365615 2 Tablet(s) PO Q6 PRN 01/26/2018 02/16/2018 Inactive Novolin 70/30 U-100 Insulin 100 unit/mL subcutaneous suspension RxNorm: 731076 INJECT 100 UNITS UNDER THE SKIN TWO TIMES A DAY 01/04/2018 05/03/2018 Inactive mupirocin 2 % topical ointment RxNorm: 088309 1 Gram(s) TOP BID to affected area 12/29/2017 07/04/2018 Inactive Levaquin 500 mg tablet RxNorm: 997245 1 Tablet(s) PO daily 12/29/2017 01/04/2018 Inactive mupirocin 2 % topical ointment RxNorm: 368889 1 Gram(s) TOP BID to affected area 12/28/2017 12/28/2017 Inactive Levaquin 500 mg tablet RxNorm: 670975 1 Tablet(s) PO daily 12/28/2017 12/28/2017 Inactive hydrocodone 10 mg-acetaminophen 325 mg tablet RxNorm: 784889 2 Tablet(s) PO Q6 PRN 12/28/2017 01/18/2018 Inactive Novolin 70/30 U-100 Insulin 100 unit/mL subcutaneous suspension RxNorm: 906411 INJECT 100 UNITS UNDER THE SKIN TWO TIMES A DAY 11/24/2017 12/13/2017 Inactive hydrocodone 10 mg-acetaminophen 325 mg tablet RxNorm: 680207 2 Tablet(s) PO Q6 PRN 11/02/2017 11/23/2017 Inactive nystatin 100,000 unit/gram topical powder RxNorm: 782757 APPLY ONE GRAM TOPICALLY FOUR TIMES A DAY NEEDED 10/22/2017 11/02/2017 Inactive hydrocodone 10 mg-acetaminophen 325 mg tablet RxNorm: 915905 2 Tablet(s) PO Q6 PRN 09/21/2017 10/12/2017 Inactive Levaquin 500 mg tablet RxNorm: 302911 1 Tablet(s) PO daily 09/04/2017 09/03/2017 Inactive Levaquin 500 mg tablet RxNorm: 604635 1 Tablet(s) PO daily 09/04/2017 09/10/2017 Inactive Keflex 500 mg capsule RxNorm: 011146 1 Capsule(s) PO daily 08/19/2017 08/18/2017 Inactive Take probiotic while on antibiotic hydrocodone 10 mg-acetaminophen 325 mg tablet RxNorm: 886530 2 Tablet(s) PO Q6 PRN 08/19/2017 09/09/2017 Inactive Keflex 500 mg capsule RxNorm: 689570 1 Capsule(s) PO QID 08/19/2017 12/27/2017 Inactive Take probiotic while on antibiotic mupirocin 2 % topical ointment RxNorm: 402821 1 Gram(s) TOP BID to affected area 08/19/2017 12/27/2017 Inactive hydrocodone 10 mg-acetaminophen 325 mg tablet RxNorm: 353593 2 Tablet(s) PO Q6 PRN 07/20/2017 08/10/2017 Inactive hydrocodone 10 mg-acetaminophen 325 mg tablet RxNorm: 650806 2 Tablet(s) PO Q6 PRN 06/12/2017 07/03/2017 Inactive ipratropium-albuterol 0.5 mg-3 mg(2.5 mg base)/3 mL nebulization soln RxNorm: 9282237 INHALE ONE VIAL VIA NEBULIZER EVERY 4 HOURS NEEDED FOR SHORTNESS OF BREATH 06/03/2017 No Stop Date Active hydrocodone 10 mg-acetaminophen 325 mg tablet RxNorm: 920778 2 Tablet(s) PO Q6 PRN 05/13/2017 06/03/2017 Inactive Lasix 80 mg tablet RxNorm: 247239 Tablet(s) TAKE ONE TABLET BY MOUTH DAILY 05/06/2017 11/01/2017 Inactive hydrocodone 10 mg-acetaminophen 325 mg tablet RxNorm: 751836 2 Tablet(s) PO Q6 PRN 04/13/2017 05/04/2017 Inactive hydrocodone 10 mg-acetaminophen 325 mg tablet RxNorm: 959898 2 Tablet(s) PO Q6 PRN 03/02/2017 03/23/2017 Inactive potassium chloride ER 10 mEq tablet,extended release RxNorm: 980185 TAKE ONE TABLET BY MOUTH FOUR TIMES A WEEK NEEDED 02/09/2017 03/22/2017 Inactive potassium chloride ER 10 mEq tablet,extended release RxNorm: 712853 TAKE ONE TABLET BY MOUTH FOUR TIMES A WEEK NEEDED 02/09/2017 02/08/2017 Inactive Neurontin 800 mg tablet RxNorm: 451847 TAKE ONE TABLET BY MOUTH THREE TIMES A DAY 01/20/2017 05/19/2017 Inactive hydrocodone 10 mg-acetaminophen 325 mg tablet RxNorm: 280114 2 Tablet(s) PO Q6 PRN 01/12/2017 02/02/2017 Inactive Lasix 80 mg tablet RxNorm: 868677 Tablet(s) TAKE ONE TABLET BY MOUTH DAILY 01/12/2017 03/12/2017 Inactive Novolin 70/30 U-100 Insulin 100 unit/mL subcutaneous suspension RxNorm: 716643 INJECT 100 UNITS UNDER THE SKIN TWO TIMES A DAY 01/09/2017 02/17/2017 Inactive Please contact prescriber by phone/fax. 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 to [employer] unable to process Rejection Srga=[id number] Rejection ufbrgh=[id number] FAX FAILED: No local dialtone; too many attempts to dial Lasix 80 mg tablet RxNorm: 859663 Tablet(s) TAKE ONE TABLET BY MOUTH DAILY 01/06/2017 01/11/2017 Inactive hydrocodone 10 mg-acetaminophen 325 mg tablet RxNorm: 017678 2 Tablet(s) PO Q6 PRN 11/25/2016 12/16/2016 Inactive nystatin 100,000 unit/gram topical powder RxNorm: 171810 1 Gram(s) TOP QID as needed 11/25/2016 10/21/2017 Inactive hydrocodone 10 mg-acetaminophen 325 mg tablet RxNorm: 159524 2 Tablet(s) PO Q6 PRN 10/30/2016 11/20/2016 Inactive hydrocodone 10 mg-acetaminophen 325 mg tablet RxNorm: 718217 2 Tablet(s) PO Q6 PRN 10/01/2016 10/22/2016 Inactive hydrocodone 10 mg-acetaminophen 325 mg tablet RxNorm: 486974 2 Tablet(s) PO Q6 PRN 09/01/2016 09/22/2016 Inactive Novolin 70/30 100 unit/mL subcutaneous suspension RxNorm: 828692 INJECT 100 UNITS UNDER THE SKIN TWO TIMES A DAY 08/21/2016 09/04/2016 Inactive hydrocodone 10 mg-acetaminophen 325 mg tablet RxNorm: 916940 2 Tablet(s) PO Q6 PRN 07/29/2016 08/19/2016 Inactive hydrocodone 10 mg-acetaminophen 325 mg tablet RxNorm: 626953 2 Tablet(s) PO Q6 PRN 06/30/2016 07/21/2016 Inactive Neurontin 800 mg tablet RxNorm: 718004 1 Tablet(s) PO TID 06/23/2016 12/19/2016 Inactive glyburide 5 mg tablet RxNorm: 302554 TAKE ONE TABLET BY MOUTH TWICE A DAY 06/12/2016 09/09/2016 Inactive hydrocodone 10 mg-acetaminophen 325 mg tablet RxNorm: 401108 2 Tablet(s) PO Q6 PRN 05/16/2016 06/06/2016 Inactive morphine ER 15 mg tablet,extended release RxNorm: 317616 1 Tablet(s) 15mg IR PO BID as needed 05/13/2016 06/11/2016 Inactive nystatin 100,000 unit/gram topical powder RxNorm: 164634 1 Gram(s) TOP QID as needed 05/13/2016 11/24/2016 Inactive gemfibrozil 600 mg tablet RxNorm: 487743 TAKE ONE TABLET BY MOUTH TWICE A DAY 05/05/2016 10/31/2016 Inactive hydrocodone 10 mg-acetaminophen 325 mg tablet RxNorm: 449816 2 Tablet(s) PO Q6 PRN 04/18/2016 05/09/2016 Inactive Keflex 500 mg capsule RxNorm: 686749 1 Capsule(s) PO TID 04/15/2016 06/22/2016 Inactive Keflex 500 mg capsule RxNorm: 671141 1 Capsule(s) PO TID 04/15/2016 04/14/2016 Inactive hydrocodone 10 mg-acetaminophen 325 mg tablet RxNorm: 405978 2 Tablet(s) PO Q6 PRN 03/19/2016 04/17/2016 Inactive captopril 100 mg tablet RxNorm: 357042 TAKE ONE TABLET BY MOUTH TWICE A DAY 03/03/2016 06/30/2016 Inactive gemfibrozil 600 mg tablet RxNorm: 679661 TAKE ONE TABLET BY MOUTH TWICE A DAY 03/03/2016 05/01/2016 Inactive hydrocodone 10 mg-acetaminophen 325 mg tablet RxNorm: 588408 2 Tablet(s) PO Q6 PRN 02/28/2016 03/18/2016 Inactive Cipro 500 mg tablet RxNorm: 478403 1 Tablet(s) PO BID 02/21/2016 02/27/2016 Inactive [SAVINGS FOR NON-COVERED DRUGS -- BIN:[id number], PCN: [id number], Group: XXXXX, ID# [id number], Questions: . THIS IS NOT INSURANCE.] hydrocodone 10 mg-acetaminophen 325 mg tablet RxNorm: 997146 2 Tablet(s) PO Q6 PRN 02/01/2016 02/27/2016 Inactive hydrocodone 10 mg-acetaminophen 325 mg tablet RxNorm: 554626 2 Tablet(s) PO Q6 PRN 01/08/2016 01/31/2016 Inactive Lasix 80 mg tablet RxNorm: 710276 TAKE ONE TABLET BY MOUTH DAILY 12/18/2015 01/16/2016 Inactive Request already responded to by other means (e.g. phone or fax) gemfibrozil 600 mg tablet RxNorm: 421279 TAKE ONE TABLET BY MOUTH TWICE A DAY 12/18/2015 03/02/2016 Inactive Request already responded to by other means (e.g. phone or fax) glyburide 5 mg tablet RxNorm: 476386 TAKE ONE TABLET BY MOUTH TWICE A DAY 12/18/2015 01/16/2016 Inactive Request already responded to by other means (e.g. phone or fax) glyburide 5 mg tablet RxNorm: 327820 TAKE ONE TABLET BY MOUTH TWICE A DAY 12/14/2015 02/11/2016 Inactive gemfibrozil 600 mg tablet RxNorm: 908303 TAKE ONE TABLET BY MOUTH TWICE A DAY 12/14/2015 03/12/2016 Inactive potassium chloride ER 10 mEq tablet,extended release RxNorm: 578630 TAKE ONE TABLET BY MOUTH DAILY 12/14/2015 02/23/2018 Inactive potassium chloride ER 10 mEq tablet,extended release RxNorm: 786951 TAKE ONE TABLET BY MOUTH DAILY 12/14/2015 01/12/2016 Inactive Lasix 80 mg tablet RxNorm: 071040 TAKE ONE TABLET BY MOUTH DAILY 12/14/2015 02/11/2016 Inactive Neurontin 800 mg tablet RxNorm: 153758 1 Tablet(s) PO TID 12/10/2015 06/06/2016 Inactive morphine ER 15 mg tablet,extended release RxNorm: 617945 1 Tablet(s) 15mg IR PO BID as needed 12/03/2015 01/01/2016 Inactive Neurontin 800 mg tablet RxNorm: 115676 1 Tablet(s) PO TID 11/05/2015 12/09/2015 Inactive hydrocodone 10 mg-acetaminophen 325 mg tablet RxNorm: 926688 2 Tablet(s) PO Q6 PRN 10/23/2015 01/07/2016 Inactive hydrocodone 10 mg-acetaminophen 325 mg tablet RxNorm: 874663 2 Tablet(s) PO Q6 PRN 10/02/2015 10/22/2015 Inactive Neurontin 800 mg tablet RxNorm: 744639 1 Tablet(s) PO TID 09/27/2015 11/04/2015 Inactive Diflucan 150 mg tablet RxNorm: 068124 1 Tablet(s) PO daily 09/06/2015 09/05/2015 Inactive Keflex 500 mg capsule RxNorm: 274153 1 Capsule(s) PO TID 09/06/2015 12/09/2015 Inactive Diflucan 150 mg tablet RxNorm: 110825 1 Tablet(s) PO daily 09/06/2015 12/09/2015 Inactive Keflex 500 mg capsule RxNorm: 593681 1 Capsule(s) PO TID 09/06/2015 09/05/2015 Inactive Novolin 70/30 100 unit/mL subcutaneous suspension RxNorm: 570806 INJECT 100 UNITS UNDER THE SKIN TWO TIMES A DAY 08/20/2015 11/07/2015 Inactive morphine ER 15 mg tablet,extended release RxNorm: 034699 1 Tablet(s) 15mg IR PO BID as needed 08/08/2015 11/04/2015 Inactive Novolin 70/30 100 unit/mL subcutaneous suspension RxNorm: 005820 100 Unit(s) SQ BID 07/10/2015 08/08/2015 Inactive Novolin 70/30 100 unit/mL subcutaneous solution RxNorm: 153847 100 Unit(s) SQ BID 07/10/2015 07/09/2015 Inactive Mobic 15 mg tablet RxNorm: 018433 1 Tablet(s) PO daily 07/05/2015 12/31/2015 Inactive captopril 100 mg tablet RxNorm: 261040 1 Tablet(s) PO BID 07/05/2015 12/31/2015 Inactive Lopid 600 mg tablet RxNorm: 068318 1 Tablet(s) PO BID 07/05/2015 No Stop Date Active hydrocodone 10 mg-acetaminophen 325 mg tablet RxNorm: 253496 2 Tablet(s) PO Q6 PRN 07/05/2015 10/01/2015 Inactive Neurontin 800 mg tablet RxNorm: 357971 1 Tablet(s) PO TID 07/05/2015 09/26/2015 Inactive Humulin 70/30 100 unit/mL subcutaneous suspension RxNorm: 184044 100 100 Unit(s) SQ BID 07/05/2015 07/09/2015 Inactive may dispense 30 or 90 day supply Lyrica 75 mg capsule RxNorm: 534648 1 Capsule(s) PO BID 07/05/2015 07/04/2015 Inactive glyburide 5 mg tablet RxNorm: 076171 1 Tablet(s) PO BID 07/05/2015 12/13/2015 Inactive potassium chloride ER 10 mEq tablet,extended release RxNorm: 952959 1 Tablet(s) PO daily 07/05/2015 12/13/2015 Inactive Lasix 80 mg tablet RxNorm: 407878 1 Tablet(s) PO daily 07/05/2015 12/13/2015 Inactive Lyrica 75 mg capsule RxNorm: 199376 1 Capsule(s) PO BID 07/05/2015 11/04/2015 Inactive morphine ER 15 mg tablet,extended release RxNorm: 306611 1 Tablet(s) 15mg IR PO BID as needed 07/05/2015 08/03/2015 Inactive morphine 15 mg capsule RxNorm: 824595 1 Capsule(s) 15mg IR PO BID as needed 06/25/2015 07/04/2015 Inactive morphine 15 mg capsule RxNorm: 681664 1 Capsule(s) 15mg IR PO BID as needed 05/24/2015 06/22/2015 Inactive morphine 15 mg capsule RxNorm: 123391 1 Capsule(s) 15mg IR PO BID as needed 04/16/2015 05/14/2015 Inactive gemfibrozil 600 mg tablet RxNorm: 892872 1 Tablet(s) PO BID 04/11/2015 07/05/2015 Inactive Glucophage 1,000 mg tablet RxNorm: 295745 1 Tablet(s) PO BID 03/12/2015 03/05/2016 Inactive captopril 100 mg tablet RxNorm: 301104 1 Tablet(s) PO BID 03/12/2015 07/04/2015 Inactive potassium chloride ER 10 mEq tablet,extended release RxNorm: 595296 1 Tablet(s) PO daily 03/12/2015 07/04/2015 Inactive glyburide 5 mg tablet RxNorm: 336692 1 Tablet(s) PO BID 03/12/2015 07/04/2015 Inactive Mobic 15 mg tablet RxNorm: 275820 1 Tablet(s) PO daily 03/12/2015 07/04/2015 Inactive morphine 15 mg capsule RxNorm: 477804 1 Capsule(s) 15mg IR PO BID as needed 03/12/2015 04/10/2015 Inactive hydrocodone 10 mg-acetaminophen 325 mg tablet RxNorm: 721292 2 Tablet(s) PO Q6 PRN 03/12/2015 07/04/2015 Inactive Neurontin 800 mg tablet RxNorm: 941395 1 Tablet(s) PO TID 03/12/2015 06/09/2015 Inactive morphine 15 mg capsule RxNorm: 931461 1 Capsule(s) 15mg IR PO BID as needed 02/09/2015 03/10/2015 Inactive Glucophage 1,000 mg tablet RxNorm: 565671 1 Tablet(s) PO BID 01/31/2015 03/11/2015 Inactive Glucophage 1,000 mg tablet RxNorm: 876377 1 Tablet(s) PO BID 01/15/2015 01/30/2015 Inactive morphine 15 mg capsule RxNorm: 479071 1 Capsule(s) 15mg IR PO BID as needed 01/11/2015 02/08/2015 Inactive hydrocodone 10 mg-acetaminophen 325 mg tablet RxNorm: 935535 2 Tablet(s) PO Q6 PRN 01/11/2015 03/11/2015 Inactive morphine 15 mg capsule RxNorm: 522231 1 Capsule(s) 15mg IR PO BID as needed 12/13/2014 01/10/2015 Inactive morphine 15 mg capsule RxNorm: 268694 1 Capsule(s) PO BID as needed 12/08/2014 12/07/2014 Inactive morphine 15 mg capsule RxNorm: 000742 1 Capsule(s) PO BID as needed 12/08/2014 12/12/2014 Inactive hydrocodone 10 mg-acetaminophen 325 mg tablet RxNorm: 763590 2 Tablet(s) PO Q6 PRN 10/27/2014 01/10/2015 Inactive clindamycin 150 mg capsule RxNorm: 006641 1 Capsule(s) PO QID 10/24/2014 11/02/2014 Inactive hydrocodone 10 mg-acetaminophen 325 mg tablet RxNorm: 535009 1 Tablet(s) PO Q6 PRN 10/24/2014 10/26/2014 Inactive Cipro 500 mg tablet RxNorm: 448220 1 Tablet(s) PO BID 09/08/2014 09/17/2014 Inactive [SAVINGS FOR NON-COVERED DRUGS -- BIN:995042, PCN: ASPROD1, Group: XXXXX, ID# [id number], Questions: . THIS IS NOT INSURANCE.] Flagyl 500 mg tablet RxNorm: 783645 1 Tablet(s) PO TID 09/08/2014 09/17/2014 Inactive [SAVINGS FOR NON-COVERED DRUGS -- BIN:625782, PCN: ASPROD1, Group: XXXXX, ID# [id number], Questions: . THIS IS NOT INSURANCE.] Flagyl 500 mg tablet RxNorm: 810171 1 Tablet(s) PO TID 09/08/2014 09/07/2014 Inactive Cipro 500 mg tablet RxNorm: 381603 1 Tablet(s) PO BID 09/08/2014 09/07/2014 Inactive Promethazine VC-Codeine 6.25 mg-5 mg-10 mg/5 mL syrup RxNorm: 159246 to 10 Milliliter(s) PO Q6 No Start Date Active multivitamin oral RxNorm: 55949 oral No Start Date Active Fish Oil capsule RxNorm: Capsule(s) PO 1200 mg No Start Date Active melatonin 5 mg tablet RxNorm: 637795 2 Tablet(s) PO QHS No Start Date Active vitamin E 1,000 unit tablet RxNorm: 972445 oral No Start Date Active Calcium 600 + D(3) oral RxNorm: 126126 oral No Start Date Active Multiple Vitamins Daily oral RxNorm: 38279 oral No Start Date Active oxycodone 10 mg tablet RxNorm: 0466323 1 Tablet(s) PO Q6 PRN No Start Date Active Lopid 600 mg tablet RxNorm: 994731 1 Tablet(s) PO BID No Start Date 04/10/2015 Inactive vitamin B09-[id number] B1 intramuscular RxNorm: 31832 intramuscular No Start Date 11/04/2015 Inactive Mobic 15 mg tablet RxNorm: 400212 1 Tablet(s) PO daily No Start Date 03/11/2015 Inactive Vitamin D3 2,000 unit capsule RxNorm: 561879 1 Capsule(s) PO daily No Start Date 11/04/2015 Inactive Vitamin C 1,000 mg tablet RxNorm: 633360 1 Tablet(s) PO daily No Start Date 11/04/2015 Inactive captopril 100 mg tablet RxNorm: 776554 1 Tablet(s) PO BID No Start Date 03/11/2015 Inactive nystatin 100,000 unit/gram topical powder RxNorm: 558416 1 Gram(s) TOP QID as needed No Start Date 05/12/2016 Inactive Neurontin 800 mg tablet RxNorm: 139967 1 Tablet(s) PO TID No Start Date 03/11/2015 Inactive mupirocin 2 % topical ointment RxNorm: 032097 1 Gram(s) TOP BID to affected area No Start Date 08/18/2017 Inactive KCL 20 meq RxNorm: 1 Tablet(s) PO daily No Start Date 03/11/2015 Inactive Lasix 80 mg tablet RxNorm: 453482 1 Tablet(s) PO daily No Start Date 07/04/2015 Inactive ipratropium-albuterol 0.5 mg-3 mg(2.5 mg base)/3 mL nebulization soln RxNorm: 5670520 INHALE ONE VIAL VIA NEBULIZER EVERY 4 HOURS NEEDED FOR SHORTNESS OF BREATH No Start Date 06/02/2017 Inactive Lyrica 75 mg capsule RxNorm: 081286 1 Capsule(s) PO BID No Start Date 07/04/2015 Inactive glyburide 5 mg tablet RxNorm: 686442 1 Tablet(s) PO BID No Start Date 03/11/2015 Inactive hydrocodone 10 mg-acetaminophen 325 mg tablet RxNorm: 393449 1 Tablet(s) PO Q6 PRN No Start Date 10/23/2014 Inactive Glucophage 1,000 mg tablet RxNorm: 056316 2 Tablet(s) PO daily No Start Date 01/14/2015 Inactive Humulin 70/30 100 unit/mL subcutaneous suspension RxNorm: 166695 100 Unit(s) SQ BID No Start Date [...] Code Item Item Code Result Date %Hba1C Mrx826 % HbA1c 06356- 6 7.3 % 07/05/2015 %Hba1C Qtm708 Gluc Ave 163 mg/dL 07/05/2015 Cbc With [...] 30.5 pg 07/05/2015 Cbc With Differential Ord2 [place]% 8.1 % 07/05/2015 Cbc With Differential Ord2 [...] 1.65 K/ul 07/05/2015 Cbc With Differential Ord2 [place] ABS# 0.7 K/ul 07/05/2015 Cbc With Differential Ord2 Eos ABS# 0.4 K/ul 07/05/2015 Cbc With Differential Ord2 Baso ABS# 0.0 K/ul 07/05/2015 Cbc With Differential Ord2 New Analyzer Notice Please note new ref ranges starting 05-30-2015 due to implemntation of new five part differential hematolgy analyzer. 07/05/2015 Tsh Ord6 hTSH II 1.45 uIU/mL 07/05/2015 Total Psa Ord10 PSA 0.14 ng/mL 07/05/2015 Comp Metabolic Fxi711 NA 138 mEq/L 07/05/2015 Comp Metabolic Gja922 K 4.7 mEq/L 07/05/2015 Comp Metabolic Wiw630 CL 101 mEq/L 07/05/2015 Comp Metabolic Ztv666 CO2 27.0 mEq/L 07/05/2015 Comp Metabolic Sul453 ANION GAP 15 07/05/2015 Comp Metabolic Uus629 GLUCOSE 152 mg/dL 07/05/2015 Comp Metabolic Cnk940 Creat 0.8 mg/dL 07/05/2015 Comp Metabolic Kko004 eGFR 106 ml/min/1.73m2 07/05/2015 Comp Metabolic Nbs837 BUN 14 mg/dL 07/05/2015 Comp Metabolic Qbg514 B/C Ratio 17.7 Ratio 07/05/2015 Comp Metabolic Qsg234 CALCIUM 9.4 mg/dL 07/05/2015 Comp Metabolic Cud084 ALK PHOS 77 U/L 07/05/2015 Comp Metabolic Jsq947 AST(SGOT) 23 U/L 07/05/2015 Comp Metabolic Wvr414 ALT(SGPT) 25 U/L 07/05/2015 Comp Metabolic Zkt199 BILI T 0.6 mg/dL 07/05/2015 Comp Metabolic Mqn953 ALBUMIN 4.0 g/dL 07/05/2015 Comp Metabolic Hnb352 TPRO 6.5 g/dL 07/05/2015 Comp Metabolic Qaq631 GLOB 2.5 g/dL 07/05/2015 Comp Metabolic Hfg492 A/G Ratio 1.6 Ratio 07/05/2015 Comp Metabolic Kje457 Osmo 279 mOsmo 07/05/2015 Cbc With Differential [...] Differential Ord2 RDW 13.3 % 03/12/2015 %Hba1C Lym410 % HbA1c 03410- 6 6.6 % 03/12/2015 %Hba1C Naw711 Gluc Ave 143 mg/dL 03/12/2015 Comp Metabolic Eue686 NA 135 mEq/L 03/12/2015 Comp Metabolic Hcd064 K 4.7 mEq/L 03/12/2015 Comp Metabolic Uof894 CL 98 mEq/L 03/12/2015 Comp Metabolic Pzm608 CO2 27.0 mEq/L 03/12/2015 Comp Metabolic Uam111 ANION GAP 15 03/12/2015 Comp Metabolic Umt148 GLUCOSE 232 mg/dL 03/12/2015 Comp Metabolic Uhi638 Creat 0.8 mg/dL 03/12/2015 Comp Metabolic Zwl260 eGFR 104 ml/min/1.73m2 03/12/2015 Comp Metabolic Fap309 BUN 19 mg/dL 03/12/2015 Comp Metabolic Gkd213 B/C Ratio 23.8 Ratio 03/12/2015 Comp Metabolic Opn979 CALCIUM 9.2 mg/dL 03/12/2015 Comp Metabolic Bvu625 ALK PHOS 74 U/L 03/12/2015 Comp Metabolic Wuq686 AST(SGOT) 24 U/L 03/12/2015 Comp Metabolic Iox513 ALT(SGPT) 29 U/L 03/12/2015 Comp Metabolic Tyo382 BILI T 0.4 mg/dL 03/12/2015 Comp Metabolic Ncl990 ALBUMIN 4.2 g/dL 03/12/2015 Comp Metabolic Hgt091 TPRO 6.5 g/dL 03/12/2015 Comp Metabolic Mct099 GLOB 2.3 g/dL 03/12/2015 Comp Metabolic Rrl269 A/G Ratio 1.8 Ratio 03/12/2015 Comp Metabolic Ahi999 Osmo 280 mOsmo 03/12/2015 Review of Systems [...] Codes Date URINALYSIS NONAUTO W/O SCOPE CPT-4: 83738 02/22/2016 Vital Signs Date Vital 11/05/2015 Blood [...] data Encounters Encounter Performer Location Codes Date ([id number]) [id number] EST. PATIENT, LEVEL IV Diagnosis: Type 2 diabetes mellitus with diabetic polyneuropathy[ICD10: E11.42] Diagnosis: Essential (primary) hypertension[ICD10: I10] Diagnosis: Panniculitis, unspecified[ICD10: M79.3] Diagnosis: Bilateral primary osteoarthritis of knee[ICD10: M17.0] Diagnosis: Heart failure, unspecified[ICD10: I50.9] Graciela Terviño MD, [facility] CPT-4: 46258 11/05/2015 00266 EST. PATIENT, LEVEL IV Diagnosis: Encounter for follow-up examination after completed treatment for conditions other than malignant neoplasm[ICD10: Z09] Ashlyn Treviño MD, [facility] CPT-4: 10868 09/27/2015 ([id number]) 27376 EST. 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: E11.42] [facility] CPT-4: 86181 03/12/2015 ([id number]) OFFICE VISIT, NEW - LEVEL 4 Diagnosis: ESSENTIAL HYPERTENSION[ICD9: 401.9] Diagnosis: Osteoarthritis of knees, bilateral[ICD9: 715.96] Diagnosis: Diabetes mellitus[ICD9: 250.00] Diagnosis: Double vision[ICD9: 368.2] Diagnosis: ACUTE SINUSITIS[ICD9: 461.9] [facility] CPT-4: 30759 10/24/2014 Plan of Care Planned Activity Notes Codes Status Date Patient Education: Patient Medication Summary Completed 09/08/2018 Care Plan: Tsh Pending 09/08/2018 Care Plan: Free T4 Pending 09/08/2018 Appointment: Graciela Ruvalcaba WPtel: [phone] [phone] (30 min) Complex 01/01/2017 Appointment: Nurse Visit 02/22/2016 Patient Education: Patient Medication Summary Completed 02/22/2016 Appointment: Graciela Ruvalcaba WPtel: [phone] [phone] [place] (30 min) Complex 02/07/2016 [phone] ([facility] Moderate 01/10/2016 Visit [...] With Differential Pending 11/05/2015 Care Plan: %Hba1C [facility] : 02909-3 Pending 11/05/2015 Visit Plan: Hospital follow up [...] Completed 03/12/2015 [facility]ment[phone] [facility] ([facility] Complex 01/24/2015 Visit [...] this time 10/24/2014 Appointment: Graciela Ruvalcaba WPtel: [phone] [phone] [place] (S) New Patient 10/24/2014 Patient Education: Patient Medication Summary Completed 10/24/2014 Patient Education: Hypertension Completed 10/24/2014 [facility]ment: [facility] [phone] [facility] [place] New Patient 09/25/2014 [...]
[2018-11-25 12:50] LABS: ABG BASE EXCESS 20.1 MMOL/L (-2.5-2.5); ABG OXYGEN SATURATION 98 % (94-100); ABG PH 7.36 (7.37-7.43); ABG PO2 101 MMHG (79-93); ABG TCO2 49.1 MMOL/L (21.0-31.0)
--- OUTSIDE RECORDS SUMMARY | 2018-11-25 12:51 | XMS REPORT | CCD ---
Author Author Florence Treviño Organization Florence Treviño MD, [facility] Address [address] [place] [address] Phone Care Team Providers Care Tower Foreman Name Role Phone PP Unavailable CCM Unavailable Summary Purpose Interface Exchange Insurance Providers Payer name Policy type / Coverage type Covered green party ID Effective Begin Date Effective End Date [facility] [id number] 2015 Unknown Family history Father Diagnosis Age [...] Retired disabled 10/24/[address]: 3238458 Former smoker quit 1993 10/24/2014 Allergies, Adverse [...] hydrocodone 10 mg-acetaminophen 325 mg tablet RxNorm: 695827 2 Tablet(s) PO Q6 PRN 09/07/2018 09/28/2018 Active hydrocodone 10 mg-acetaminophen 325 mg tablet RxNorm: 877917 2 Tablet(s) PO Q6 PRN 07/05/2018 07/26/2018 Inactive mupirocin 2 % topical ointment RxNorm: 743912 APPLY TO AFFECTED AREA(S) TWO TIMES A DAY 07/05/2018 07/26/2018 Inactive levothyroxine 25 mcg tablet RxNorm: 341815 1 Tablet(s) PO daily 06/03/2018 09/30/2018 Active levothyroxine 25 mcg tablet RxNorm: 481385 1 Tablet(s) PO daily 06/03/2018 06/02/2018 Inactive hydrocodone 10 mg-acetaminophen 325 mg tablet RxNorm: 659267 2 Tablet(s) PO Q6 PRN 05/25/2018 06/15/2018 Inactive hydrocodone 10 mg-acetaminophen 325 mg tablet RxNorm: 317695 2 Tablet(s) PO Q6 PRN 04/13/2018 05/04/2018 Inactive hydrocodone 10 mg-acetaminophen 325 mg tablet RxNorm: 079578 2 Tablet(s) PO Q6 PRN 03/12/2018 04/02/2018 Inactive potassium chloride ER 10 mEq tablet,extended release RxNorm: 685024 TAKE ONE TABLET BY MOUTH FOUR TIMES A WEEK NEEDED 02/24/2018 07/13/2018 Inactive Neurontin 800 mg tablet RxNorm: 766636 TAKE ONE TABLET BY MOUTH THREE TIMES A DAY 02/09/2018 05/09/2018 Inactive nystatin 100,000 unit/gram topical powder RxNorm: 677067 APPLY ONE GRAM TOPICALLY FOUR TIMES A DAY NEEDED 02/03/2018 02/14/2018 Inactive hydrocodone 10 mg-acetaminophen 325 mg tablet RxNorm: 970885 2 Tablet(s) PO Q6 PRN 01/26/2018 02/16/2018 Inactive Novolin 70/30 U-100 Insulin 100 unit/mL subcutaneous suspension RxNorm: 053205 INJECT 100 UNITS UNDER THE SKIN TWO TIMES A DAY 01/04/2018 05/03/2018 Inactive mupirocin 2 % topical ointment RxNorm: 158923 1 Gram(s) TOP BID to affected area 12/29/2017 07/04/2018 Inactive Levaquin 500 mg tablet RxNorm: 573635 1 Tablet(s) PO daily 12/29/2017 01/04/2018 Inactive mupirocin 2 % topical ointment RxNorm: 972723 1 Gram(s) TOP BID to affected area 12/28/2017 12/28/2017 Inactive Levaquin 500 mg tablet RxNorm: 167372 1 Tablet(s) PO daily 12/28/2017 12/28/2017 Inactive hydrocodone 10 mg-acetaminophen 325 mg tablet RxNorm: 683176 2 Tablet(s) PO Q6 PRN 12/28/2017 01/18/2018 Inactive Novolin 70/30 U-100 Insulin 100 unit/mL subcutaneous suspension RxNorm: 292438 INJECT 100 UNITS UNDER THE SKIN TWO TIMES A DAY 11/24/2017 12/13/2017 Inactive hydrocodone 10 mg-acetaminophen 325 mg tablet RxNorm: 244119 2 Tablet(s) PO Q6 PRN 11/02/2017 11/23/2017 Inactive nystatin 100,000 unit/gram topical powder RxNorm: 140287 APPLY ONE GRAM TOPICALLY FOUR TIMES A DAY NEEDED 10/22/2017 11/02/2017 Inactive hydrocodone 10 mg-acetaminophen 325 mg tablet RxNorm: 715610 2 Tablet(s) PO Q6 PRN 09/21/2017 10/12/2017 Inactive Levaquin 500 mg tablet RxNorm: 503528 1 Tablet(s) PO daily 09/04/2017 09/03/2017 Inactive Levaquin 500 mg tablet RxNorm: 610059 1 Tablet(s) PO daily 09/04/2017 09/10/2017 Inactive Keflex 500 mg capsule RxNorm: 012060 1 Capsule(s) PO daily 08/19/2017 08/18/2017 Inactive Take probiotic while on antibiotic hydrocodone 10 mg-acetaminophen 325 mg tablet RxNorm: 329832 2 Tablet(s) PO Q6 PRN 08/19/2017 09/09/2017 Inactive Keflex 500 mg capsule RxNorm: 864332 1 Capsule(s) PO QID 08/19/2017 12/27/2017 Inactive Take probiotic while on antibiotic mupirocin 2 % topical ointment RxNorm: 775944 1 Gram(s) TOP BID to affected area 08/19/2017 12/27/2017 Inactive hydrocodone 10 mg-acetaminophen 325 mg tablet RxNorm: 036298 2 Tablet(s) PO Q6 PRN 07/20/2017 08/10/2017 Inactive hydrocodone 10 mg-acetaminophen 325 mg tablet RxNorm: 710921 2 Tablet(s) PO Q6 PRN 06/12/2017 07/03/2017 Inactive ipratropium-albuterol 0.5 mg-3 mg(2.5 mg base)/3 mL nebulization soln RxNorm: 4999118 INHALE ONE VIAL VIA NEBULIZER EVERY 4 HOURS NEEDED FOR SHORTNESS OF BREATH 06/03/2017 No Stop Date Active hydrocodone 10 mg-acetaminophen 325 mg tablet RxNorm: 848831 2 Tablet(s) PO Q6 PRN 05/13/2017 06/03/2017 Inactive Lasix 80 mg tablet RxNorm: 330088 Tablet(s) TAKE ONE TABLET BY MOUTH DAILY 05/06/2017 11/01/2017 Inactive hydrocodone 10 mg-acetaminophen 325 mg tablet RxNorm: 118204 2 Tablet(s) PO Q6 PRN 04/13/2017 05/04/2017 Inactive hydrocodone 10 mg-acetaminophen 325 mg tablet RxNorm: 500832 2 Tablet(s) PO Q6 PRN 03/02/2017 03/23/2017 Inactive potassium chloride ER 10 mEq tablet,extended release RxNorm: 955973 TAKE ONE TABLET BY MOUTH FOUR TIMES A WEEK NEEDED 02/09/2017 03/22/2017 Inactive potassium chloride ER 10 mEq tablet,extended release RxNorm: 951168 TAKE ONE TABLET BY MOUTH FOUR TIMES A WEEK NEEDED 02/09/2017 02/08/2017 Inactive Neurontin 800 mg tablet RxNorm: 626387 TAKE ONE TABLET BY MOUTH THREE TIMES A DAY 01/20/2017 05/19/2017 Inactive hydrocodone 10 mg-acetaminophen 325 mg tablet RxNorm: 152090 2 Tablet(s) PO Q6 PRN 01/12/2017 02/02/2017 Inactive Lasix 80 mg tablet RxNorm: 460612 Tablet(s) TAKE ONE TABLET BY MOUTH DAILY 01/12/2017 03/12/2017 Inactive Novolin 70/30 U-100 Insulin 100 unit/mL subcutaneous suspension RxNorm: 281170 INJECT 100 UNITS UNDER THE SKIN TWO TIMES A DAY 01/09/2017 02/17/2017 Inactive Please contact prescriber by phone/fax. 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 Rejection Hmaq=[id number] Rejection reydhg=[id number] FAX FAILED: No local dialtone; too many attempts to dial Lasix 80 mg tablet RxNorm: 796145 Tablet(s) TAKE ONE TABLET BY MOUTH DAILY 01/06/2017 01/11/2017 Inactive hydrocodone 10 mg-acetaminophen 325 mg tablet RxNorm: 274770 2 Tablet(s) PO Q6 PRN 11/25/2016 12/16/2016 Inactive nystatin 100,000 unit/gram topical powder RxNorm: 549124 1 Gram(s) TOP QID as needed 11/25/2016 10/21/2017 Inactive hydrocodone 10 mg-acetaminophen 325 mg tablet RxNorm: 407382 2 Tablet(s) PO Q6 PRN 10/30/2016 11/20/2016 Inactive hydrocodone 10 mg-acetaminophen 325 mg tablet RxNorm: 015119 2 Tablet(s) PO Q6 PRN 10/01/2016 10/22/2016 Inactive hydrocodone 10 mg-acetaminophen 325 mg tablet RxNorm: 011180 2 Tablet(s) PO Q6 PRN 09/01/2016 09/22/2016 Inactive Novolin 70/30 100 unit/mL subcutaneous suspension RxNorm: 390576 INJECT 100 UNITS UNDER THE SKIN TWO TIMES A DAY 08/21/2016 09/04/2016 Inactive hydrocodone 10 mg-acetaminophen 325 mg tablet RxNorm: 739865 2 Tablet(s) PO Q6 PRN 07/29/2016 08/19/2016 Inactive hydrocodone 10 mg-acetaminophen 325 mg tablet RxNorm: 676132 2 Tablet(s) PO Q6 PRN 06/30/2016 07/21/2016 Inactive Neurontin 800 mg tablet RxNorm: 531870 1 Tablet(s) PO TID 06/23/2016 12/19/2016 Inactive glyburide 5 mg tablet RxNorm: 484743 TAKE ONE TABLET BY MOUTH TWICE A DAY 06/12/2016 09/09/2016 Inactive hydrocodone 10 mg-acetaminophen 325 mg tablet RxNorm: 975174 2 Tablet(s) PO Q6 PRN 05/16/2016 06/06/2016 Inactive morphine ER 15 mg tablet,extended release RxNorm: 722769 1 Tablet(s) 15mg IR PO BID as needed 05/13/2016 06/11/2016 Inactive nystatin 100,000 unit/gram topical powder RxNorm: 814185 1 Gram(s) TOP QID as needed 05/13/2016 11/24/2016 Inactive gemfibrozil 600 mg tablet RxNorm: 791809 TAKE ONE TABLET BY MOUTH TWICE A DAY 05/05/2016 10/31/2016 Inactive hydrocodone 10 mg-acetaminophen 325 mg tablet RxNorm: 917368 2 Tablet(s) PO Q6 PRN 04/18/2016 05/09/2016 Inactive Keflex 500 mg capsule RxNorm: 785241 1 Capsule(s) PO TID 04/15/2016 06/22/2016 Inactive Keflex 500 mg capsule RxNorm: 405619 1 Capsule(s) PO TID 04/15/2016 04/14/2016 Inactive hydrocodone 10 mg-acetaminophen 325 mg tablet RxNorm: 406345 2 Tablet(s) PO Q6 PRN 03/19/2016 04/17/2016 Inactive captopril 100 mg tablet RxNorm: 468010 TAKE ONE TABLET BY MOUTH TWICE A DAY 03/03/2016 06/30/2016 Inactive gemfibrozil 600 mg tablet RxNorm: 814515 TAKE ONE TABLET BY MOUTH TWICE A DAY 03/03/2016 05/01/2016 Inactive hydrocodone 10 mg-acetaminophen 325 mg tablet RxNorm: 446737 2 Tablet(s) PO Q6 PRN 02/28/2016 03/18/2016 Inactive Cipro 500 mg tablet RxNorm: 401604 1 Tablet(s) PO BID 02/21/2016 02/27/2016 Inactive [SAVINGS FOR NON-COVERED DRUGS -- BIN:029430, PCN: [id number], Group: XXXXX, ID# [id number], Questions: . THIS IS NOT INSURANCE.] hydrocodone 10 mg-acetaminophen 325 mg tablet RxNorm: 554919 2 Tablet(s) PO Q6 PRN 02/01/2016 02/27/2016 Inactive hydrocodone 10 mg-acetaminophen 325 mg tablet RxNorm: 701815 2 Tablet(s) PO Q6 PRN 01/08/2016 01/31/2016 Inactive Lasix 80 mg tablet RxNorm: 194307 TAKE ONE TABLET BY MOUTH DAILY 12/18/2015 01/16/2016 Inactive Request already responded to by other means (e.g. phone or fax) gemfibrozil 600 mg tablet RxNorm: 193100 TAKE ONE TABLET BY MOUTH TWICE A DAY 12/18/2015 03/02/2016 Inactive Request already responded to by other means (e.g. phone or fax) glyburide 5 mg tablet RxNorm: 211448 TAKE ONE TABLET BY MOUTH TWICE A DAY 12/18/2015 01/16/2016 Inactive Request already responded to by other means (e.g. phone or fax) glyburide 5 mg tablet RxNorm: 134975 TAKE ONE TABLET BY MOUTH TWICE A DAY 12/14/2015 02/11/2016 Inactive gemfibrozil 600 mg tablet RxNorm: 146643 TAKE ONE TABLET BY MOUTH TWICE A DAY 12/14/2015 03/12/2016 Inactive potassium chloride ER 10 mEq tablet,extended release RxNorm: 309843 TAKE ONE TABLET BY MOUTH DAILY 12/14/2015 02/23/2018 Inactive potassium chloride ER 10 mEq tablet,extended release RxNorm: 727528 TAKE ONE TABLET BY MOUTH DAILY 12/14/2015 01/12/2016 Inactive Lasix 80 mg tablet RxNorm: 419153 TAKE ONE TABLET BY MOUTH DAILY 12/14/2015 02/11/2016 Inactive Neurontin 800 mg tablet RxNorm: 593194 1 Tablet(s) PO TID 12/10/2015 06/06/2016 Inactive morphine ER 15 mg tablet,extended release RxNorm: 628008 1 Tablet(s) 15mg IR PO BID as needed 12/03/2015 01/01/2016 Inactive Neurontin 800 mg tablet RxNorm: 265843 1 Tablet(s) PO TID 11/05/2015 12/09/2015 Inactive hydrocodone 10 mg-acetaminophen 325 mg tablet RxNorm: 938819 2 Tablet(s) PO Q6 PRN 10/23/2015 01/07/2016 Inactive hydrocodone 10 mg-acetaminophen 325 mg tablet RxNorm: 815753 2 Tablet(s) PO Q6 PRN 10/02/2015 10/22/2015 Inactive Neurontin 800 mg tablet RxNorm: 206570 1 Tablet(s) PO TID 09/27/2015 11/04/2015 Inactive Diflucan 150 mg tablet RxNorm: 601018 1 Tablet(s) PO daily 09/06/2015 09/05/2015 Inactive Keflex 500 mg capsule RxNorm: 177957 1 Capsule(s) PO TID 09/06/2015 12/09/2015 Inactive Diflucan 150 mg tablet RxNorm: 657557 1 Tablet(s) PO daily 09/06/2015 12/09/2015 Inactive Keflex 500 mg capsule RxNorm: 461911 1 Capsule(s) PO TID 09/06/2015 09/05/2015 Inactive Novolin 70/30 100 unit/mL subcutaneous suspension RxNorm: 289611 INJECT 100 UNITS UNDER THE SKIN TWO TIMES A DAY 08/20/2015 11/07/2015 Inactive morphine ER 15 mg tablet,extended release RxNorm: 258512 1 Tablet(s) 15mg IR PO BID as needed 08/08/2015 11/04/2015 Inactive Novolin 70/30 100 unit/mL subcutaneous suspension RxNorm: 894570 100 Unit(s) SQ BID 07/10/2015 08/08/2015 Inactive Novolin 70/30 100 unit/mL subcutaneous solution RxNorm: 010113 100 Unit(s) SQ BID 07/10/2015 07/09/2015 Inactive Mobic 15 mg tablet RxNorm: 021657 1 Tablet(s) PO daily 07/05/2015 12/31/2015 Inactive captopril 100 mg tablet RxNorm: 473693 1 Tablet(s) PO BID 07/05/2015 12/31/2015 Inactive Lopid 600 mg tablet RxNorm: 869990 1 Tablet(s) PO BID 07/05/2015 No Stop Date Active hydrocodone 10 mg-acetaminophen 325 mg tablet RxNorm: 117397 2 Tablet(s) PO Q6 PRN 07/05/2015 10/01/2015 Inactive Neurontin 800 mg tablet RxNorm: 253770 1 Tablet(s) PO TID 07/05/2015 09/26/2015 Inactive Humulin 70/30 100 unit/mL subcutaneous suspension RxNorm: 498541 100 100 Unit(s) SQ BID 07/05/2015 07/09/2015 Inactive may dispense 30 or 90 day supply Lyrica 75 mg capsule RxNorm: 576715 1 Capsule(s) PO BID 07/05/2015 07/04/2015 Inactive glyburide 5 mg tablet RxNorm: 909045 1 Tablet(s) PO BID 07/05/2015 12/13/2015 Inactive potassium chloride ER 10 mEq tablet,extended release RxNorm: 350341 1 Tablet(s) PO daily 07/05/2015 12/13/2015 Inactive Lasix 80 mg tablet RxNorm: 429737 1 Tablet(s) PO daily 07/05/2015 12/13/2015 Inactive Lyrica 75 mg capsule RxNorm: 309044 1 Capsule(s) PO BID 07/05/2015 11/04/2015 Inactive morphine ER 15 mg tablet,extended release RxNorm: 411052 1 Tablet(s) 15mg IR PO BID as needed 07/05/2015 08/03/2015 Inactive morphine 15 mg capsule RxNorm: 911166 1 Capsule(s) 15mg IR PO BID as needed 06/25/2015 07/04/2015 Inactive morphine 15 mg capsule RxNorm: 584553 1 Capsule(s) 15mg IR PO BID as needed 05/24/2015 06/22/2015 Inactive morphine 15 mg capsule RxNorm: 807123 1 Capsule(s) 15mg IR PO BID as needed 04/16/2015 05/14/2015 Inactive gemfibrozil 600 mg tablet RxNorm: 750746 1 Tablet(s) PO BID 04/11/2015 07/05/2015 Inactive Glucophage 1,000 mg tablet RxNorm: 162950 1 Tablet(s) PO BID 03/12/2015 03/05/2016 Inactive captopril 100 mg tablet RxNorm: 772418 1 Tablet(s) PO BID 03/12/2015 07/04/2015 Inactive potassium chloride ER 10 mEq tablet,extended release RxNorm: 036806 1 Tablet(s) PO daily 03/12/2015 07/04/2015 Inactive glyburide 5 mg tablet RxNorm: 142588 1 Tablet(s) PO BID 03/12/2015 07/04/2015 Inactive Mobic 15 mg tablet RxNorm: 954303 1 Tablet(s) PO daily 03/12/2015 07/04/2015 Inactive morphine 15 mg capsule RxNorm: 157250 1 Capsule(s) 15mg IR PO BID as needed 03/12/2015 04/10/2015 Inactive hydrocodone 10 mg-acetaminophen 325 mg tablet RxNorm: 738720 2 Tablet(s) PO Q6 PRN 03/12/2015 07/04/2015 Inactive Neurontin 800 mg tablet RxNorm: 473804 1 Tablet(s) PO TID 03/12/2015 06/09/2015 Inactive morphine 15 mg capsule RxNorm: 989691 1 Capsule(s) 15mg IR PO BID as needed 02/09/2015 03/10/2015 Inactive Glucophage 1,000 mg tablet RxNorm: 045718 1 Tablet(s) PO BID 01/31/2015 03/11/2015 Inactive Glucophage 1,000 mg tablet RxNorm: 378433 1 Tablet(s) PO BID 01/15/2015 01/30/2015 Inactive morphine 15 mg capsule RxNorm: 873568 1 Capsule(s) 15mg IR PO BID as needed 01/11/2015 02/08/2015 Inactive hydrocodone 10 mg-acetaminophen 325 mg tablet RxNorm: 124869 2 Tablet(s) PO Q6 PRN 01/11/2015 03/11/2015 Inactive morphine 15 mg capsule RxNorm: 436614 1 Capsule(s) 15mg IR PO BID as needed 12/13/2014 01/10/2015 Inactive morphine 15 mg capsule RxNorm: 917563 1 Capsule(s) PO BID as needed 12/08/2014 12/07/2014 Inactive morphine 15 mg capsule RxNorm: 971362 1 Capsule(s) PO BID as needed 12/08/2014 12/12/2014 Inactive hydrocodone 10 mg-acetaminophen 325 mg tablet RxNorm: 148192 2 Tablet(s) PO Q6 PRN 10/27/2014 01/10/2015 Inactive clindamycin 150 mg capsule RxNorm: 196979 1 Capsule(s) PO QID 10/24/2014 11/02/2014 Inactive hydrocodone 10 mg-acetaminophen 325 mg tablet RxNorm: 961577 1 Tablet(s) PO Q6 PRN 10/24/2014 10/26/2014 Inactive Cipro 500 mg tablet RxNorm: 666643 1 Tablet(s) PO BID 09/08/2014 09/17/2014 Inactive [SAVINGS FOR NON-COVERED DRUGS -- BIN:[id number], PCN: ASPROD1, Group: XXXXX, ID# [id number], Questions: . THIS IS NOT INSURANCE.] Flagyl 500 mg tablet RxNorm: 911870 1 Tablet(s) PO TID 09/08/2014 09/17/2014 Inactive [SAVINGS FOR NON-COVERED DRUGS -- BIN:234692, PCN: ASPROD1, Group: XXXXX, ID# [id number], Questions: . THIS IS NOT INSURANCE.] Flagyl 500 mg tablet RxNorm: 559255 1 Tablet(s) PO TID 09/08/2014 09/07/2014 Inactive Cipro 500 mg tablet RxNorm: 927138 1 Tablet(s) PO BID 09/08/2014 09/07/2014 Inactive Promethazine VC-Codeine 6.25 mg-5 mg-10 mg/5 mL syrup RxNorm: 601008 to 10 Milliliter(s) PO Q6 No Start Date Active multivitamin oral RxNorm: 53923 oral No Start Date Active Fish Oil capsule RxNorm: Capsule(s) PO 1200 mg No Start Date Active melatonin 5 mg tablet RxNorm: 109781 2 Tablet(s) PO QHS No Start Date Active vitamin E 1,000 unit tablet RxNorm: 207750 oral No Start Date Active Calcium 600 + D(3) oral RxNorm: 997670 oral No Start Date Active Multiple Vitamins Daily oral RxNorm: 39202 oral No Start Date Active oxycodone 10 mg tablet RxNorm: 5170639 1 Tablet(s) PO Q6 PRN No Start Date Active Lopid 600 mg tablet RxNorm: 839824 1 Tablet(s) PO BID No Start Date 04/10/2015 Inactive vitamin K23-kahrson B1 intramuscular RxNorm: 11943 intramuscular No Start Date 11/04/2015 Inactive Mobic 15 mg tablet RxNorm: 200673 1 Tablet(s) PO daily No Start Date 03/11/2015 Inactive Vitamin D3 2,000 unit capsule RxNorm: 469158 1 Capsule(s) PO daily No Start Date 11/04/2015 Inactive Vitamin C 1,000 mg tablet RxNorm: 471412 1 Tablet(s) PO daily No Start Date 11/04/2015 Inactive captopril 100 mg tablet RxNorm: 107298 1 Tablet(s) PO BID No Start Date 03/11/2015 Inactive nystatin 100,000 unit/gram topical powder RxNorm: 712296 1 Gram(s) TOP QID as needed No Start Date 05/12/2016 Inactive Neurontin 800 mg tablet RxNorm: 202133 1 Tablet(s) PO TID No Start Date 03/11/2015 Inactive mupirocin 2 % topical ointment RxNorm: 181738 1 Gram(s) TOP BID to affected area No Start Date 08/18/2017 Inactive KCL 20 meq RxNorm: 1 Tablet(s) PO daily No Start Date 03/11/2015 Inactive Lasix 80 mg tablet RxNorm: 261248 1 Tablet(s) PO daily No Start Date 07/04/2015 Inactive ipratropium-albuterol 0.5 mg-3 mg(2.5 mg base)/3 mL nebulization soln RxNorm: 3644530 INHALE ONE VIAL VIA NEBULIZER EVERY 4 HOURS NEEDED FOR SHORTNESS OF BREATH No Start Date 06/02/2017 Inactive Lyrica 75 mg capsule RxNorm: 600113 1 Capsule(s) PO BID No Start Date 07/04/2015 Inactive glyburide 5 mg tablet RxNorm: 266485 1 Tablet(s) PO BID No Start Date 03/11/2015 Inactive hydrocodone 10 mg-acetaminophen 325 mg tablet RxNorm: 199830 1 Tablet(s) PO Q6 PRN No Start Date 10/23/2014 Inactive Glucophage 1,000 mg tablet RxNorm: 168024 2 Tablet(s) PO daily No Start Date 01/14/2015 Inactive Humulin 70/30 100 unit/mL subcutaneous suspension RxNorm: 603746 100 Unit(s) SQ BID No Start Date [...] Code Item Item Code Result Date %Hba1C Aum946 % HbA1c 87492- 6 7.3 % 07/05/2015 %Hba1C Lcj382 Gluc Ave 163 mg/dL 07/05/2015 Cbc With [...] 30.5 pg 07/05/2015 Cbc With Differential Ord2 [place]% 8.1 % 07/05/2015 Cbc With Differential Ord2 [...] 1.65 K/ul 07/05/2015 Cbc With Differential Ord2 [place] ABS# 0.7 K/ul 07/05/2015 Cbc With Differential Ord2 Eos ABS# 0.4 K/ul 07/05/2015 Cbc With Differential Ord2 Baso ABS# 0.0 K/ul 07/05/2015 Cbc With Differential Ord2 New Analyzer Notice Please note new ref ranges starting 05-30-2015 due to implemntation of new five part differential hematolgy analyzer. 07/05/2015 Tsh Ord6 hTSH II 1.45 uIU/mL 07/05/2015 Total Psa Ord10 PSA 0.14 ng/mL 07/05/2015 Comp Metabolic Kds534 NA 138 mEq/L 07/05/2015 Comp Metabolic Mwf567 K 4.7 mEq/L 07/05/2015 Comp Metabolic Pbi707 CL 101 mEq/L 07/05/2015 Comp Metabolic Chr056 CO2 27.0 mEq/L 07/05/2015 Comp Metabolic Zrx891 ANION GAP 15 07/05/2015 Comp Metabolic Unl953 GLUCOSE 152 mg/dL 07/05/2015 Comp Metabolic Tjy544 Creat 0.8 mg/dL 07/05/2015 Comp Metabolic Axc515 eGFR 106 ml/min/1.73m2 07/05/2015 Comp Metabolic Cyx837 BUN 14 mg/dL 07/05/2015 Comp Metabolic Dkz142 B/C Ratio 17.7 Ratio 07/05/2015 Comp Metabolic Bjc365 CALCIUM 9.4 mg/dL 07/05/2015 Comp Metabolic Oxe947 ALK PHOS 77 U/L 07/05/2015 Comp Metabolic Jay331 AST(SGOT) 23 U/L 07/05/2015 Comp Metabolic Asw581 ALT(SGPT) 25 U/L 07/05/2015 Comp Metabolic Tgx849 BILI T 0.6 mg/dL 07/05/2015 Comp Metabolic Fsm559 ALBUMIN 4.0 g/dL 07/05/2015 Comp Metabolic Buv459 TPRO 6.5 g/dL 07/05/2015 Comp Metabolic Run480 GLOB 2.5 g/dL 07/05/2015 Comp Metabolic Pqa356 A/G Ratio 1.6 Ratio 07/05/2015 Comp Metabolic Bdx415 Osmo 279 mOsmo 07/05/2015 Cbc With Differential [...] Differential Ord2 RDW 13.3 % 03/12/2015 %Hba1C Rrw304 % HbA1c 56294- 6 6.6 % 03/12/2015 %Hba1C Kxn040 Gluc Ave 143 mg/dL 03/12/2015 Comp Metabolic Wzf712 NA 135 mEq/L 03/12/2015 Comp Metabolic Uoy101 K 4.7 mEq/L 03/12/2015 Comp Metabolic Tag957 CL 98 mEq/L 03/12/2015 Comp Metabolic Lkn845 CO2 27.0 mEq/L 03/12/2015 Comp Metabolic Frw775 ANION GAP 15 03/12/2015 Comp Metabolic Dsn377 GLUCOSE 232 mg/dL 03/12/2015 Comp Metabolic Xlx234 Creat 0.8 mg/dL 03/12/2015 Comp Metabolic Tkg399 eGFR 104 ml/min/1.73m2 03/12/2015 Comp Metabolic Uib804 BUN 19 mg/dL 03/12/2015 Comp Metabolic Qsg918 B/C Ratio 23.8 Ratio 03/12/2015 Comp Metabolic Nfo650 CALCIUM 9.2 mg/dL 03/12/2015 Comp Metabolic Pdr244 ALK PHOS 74 U/L 03/12/2015 Comp Metabolic Bqw098 AST(SGOT) 24 U/L 03/12/2015 Comp Metabolic Pdk322 ALT(SGPT) 29 U/L 03/12/2015 Comp Metabolic Ptp157 BILI T 0.4 mg/dL 03/12/2015 Comp Metabolic Nox755 ALBUMIN 4.2 g/dL 03/12/2015 Comp Metabolic Tso377 TPRO 6.5 g/dL 03/12/2015 Comp Metabolic Rva235 GLOB 2.3 g/dL 03/12/2015 Comp Metabolic Xbx569 A/G Ratio 1.8 Ratio 03/12/2015 Comp Metabolic Oie634 Osmo 280 mOsmo 03/12/2015 Review of Systems [...] Codes Date URINALYSIS NONAUTO W/O SCOPE CPT-4: 58256 02/22/2016 Vital Signs Date Vital 11/05/2015 Blood [...] data Encounters Encounter Performer Location Codes Date ([id number]) [id number] EST. 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 PATIENT, LEVEL IV Diagnosis: Encounter for follow-up examination after completed treatment for conditions other than malignant neoplasm[ICD10: Z09] Ashlyn Treviño MD, [facility] CPT-4: 36345 09/27/2015 ([id number]) [id number] EST. 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: E11.42] Graciela Treviño MD, [facility] CPT-4: 51104 03/12/2015 ([id number]) OFFICE VISIT, NEW - LEVEL 4 Diagnosis: ESSENTIAL HYPERTENSION[ICD9: 401.9] Diagnosis: Osteoarthritis of knees, bilateral[ICD9: 715.96] Diagnosis: Diabetes mellitus[ICD9: 250.00] Diagnosis: Double vision[ICD9: 368.2] Diagnosis: ACUTE SINUSITIS[ICD9: 461.9] [facility] CPT-4: 61169 10/24/2014 Plan of Care Planned Activity Notes Codes Status Date Appointment: Graciela Ruvalcaba WPtel: [phone] [phone] [place] (30 min) Complex 01/01/2017 Appointment: Nurse Visit 02/22/2016 Patient Education: Patient Medication Summary Completed 02/22/2016 Appointment: Graciela Ruvalcaba WPtel: [phone] [phone] [place] (30 min) Complex 02/07/2016 Appointment: Florence Treviño WPtel: [phone] [facility] [place] (15 min) Moderate 01/10/2016 Visit Plan: [...] Pending 11/05/2015 Care Plan: %Hba1C LOINC : 95040-3 Pending 11/05/2015 Visit Plan: Hospital follow up [...] Hypertension Completed 03/12/2015 Appointment: Florence [facility]el[phone] ([facility] Complex 01/24/2015 Visit Plan: HTN-elevated [...] in medication at this time 10/24/2014 [phone] [place] New Patient 10/24/2014 Patient Education: Patient Medication Summary Completed 10/24/2014 Patient Education: Hypertension Completed 10/24/2014 App[facility]ment: [facility] [phone] [facility] [place] ([place] New Patient 09/25/2014 Instructions Comment [...] change in blood pressure readings at [facility]-no further s/s of infection [...] change in blood pressure readings at home. [facility]-no further s/s of infection [...]
[2018-11-25 12:52] LABS: ABG PCO2 85 MMHG (35-45)
[2018-11-25 12:52] LABS: BASOPHILS % (AUTO) 0 % (0-10); EOSINOPHILS # (AUTO) 0.3 10^3/uL (0.0-0.3); EOSINOPHILS % (AUTO) 3 % (0-10); HEMATOCRIT 41 % (40-54); HEMOGLOBIN 11.2 G/DL (13.3-17.7); LYMPHOCYTES # (AUTO) 1.1 X 10^3 (1.0-4.0); LYMPHOCYTES % (AUTO) 13 % (12-44); MEAN CORPUSCULAR HEMOGLOBIN 26 PG (25-34); MEAN CORPUSCULAR HGB CONC 28 G/DL (32-36); MEAN CORPUSCULAR VOLUME 94 FL (80-99); MONOCYTES # (AUTO) 0.8 X 10^3 (0.0-1.0); MONOCYTES % (AUTO) 10 % (0-12); NEUTROPHILS % (AUTO) 74 % (42-75); PLATELET COUNT 184 10^3/uL (130-400); RED CELL DISTRIBUTION WIDTH 14.9 % (10.0-14.5); WHITE BLOOD COUNT 8.1 10^3/uL (4.3-11.0)
[2018-11-25 12:53] LABS: ALLENS TEST POSITIVE; INSPIRED O2 4 L; PATIENT TEMP 99.5; VENTILATOR NO
--- OUTSIDE RECORDS SUMMARY | 2018-11-25 12:53 | XMS REPORT | CCD ---
Author Author Florence Treviño Organization Florence Treviño MD, [facility] Address [address] [place] [address] Phone Care Team Providers Care Distribution Agent Name Role Phone PP Unavailable CCM Unavailable Summary Purpose Interface Exchange Insurance Providers Payer name Policy type / Coverage type Covered democrat ID Effective Begin Date Effective End Date [facility] [id number] 2015 Unknown Family history Father Diagnosis Age [...] Retired disabled 10/24/[address]: 1489022 Former smoker quit 1993 10/24/2014 Allergies, Adverse [...] hydrocodone 10 mg-acetaminophen 325 mg tablet RxNorm: 813013 2 Tablet(s) PO Q6 PRN 07/05/2018 07/26/2018 Active mupirocin 2 % topical ointment RxNorm: 892858 APPLY TO AFFECTED AREA(S) TWO TIMES A DAY 07/05/2018 07/26/2018 Active levothyroxine 25 mcg tablet RxNorm: 855773 1 Tablet(s) PO daily 06/03/2018 09/30/2018 Active levothyroxine 25 mcg tablet RxNorm: 751397 1 Tablet(s) PO daily 06/03/2018 06/02/2018 Inactive hydrocodone 10 mg-acetaminophen 325 mg tablet RxNorm: 971335 2 Tablet(s) PO Q6 PRN 05/25/2018 06/15/2018 Inactive hydrocodone 10 mg-acetaminophen 325 mg tablet RxNorm: 311308 2 Tablet(s) PO Q6 PRN 04/13/2018 05/04/2018 Inactive hydrocodone 10 mg-acetaminophen 325 mg tablet RxNorm: 263709 2 Tablet(s) PO Q6 PRN 03/12/2018 04/02/2018 Inactive potassium chloride ER 10 mEq tablet,extended release RxNorm: 456807 TAKE ONE TABLET BY MOUTH FOUR TIMES A WEEK NEEDED 02/24/2018 07/13/2018 Active Neurontin 800 mg tablet RxNorm: 668702 TAKE ONE TABLET BY MOUTH THREE TIMES A DAY 02/09/2018 05/09/2018 Inactive nystatin 100,000 unit/gram topical powder RxNorm: 068121 APPLY ONE GRAM TOPICALLY FOUR TIMES A DAY NEEDED 02/03/2018 02/14/2018 Inactive hydrocodone 10 mg-acetaminophen 325 mg tablet RxNorm: 359104 2 Tablet(s) PO Q6 PRN 01/26/2018 02/16/2018 Inactive Novolin 70/30 U-100 Insulin 100 unit/mL subcutaneous suspension RxNorm: 130775 INJECT 100 UNITS UNDER THE SKIN TWO TIMES A DAY 01/04/2018 05/03/2018 Inactive mupirocin 2 % topical ointment RxNorm: 364116 1 Gram(s) TOP BID to affected area 12/29/2017 07/04/2018 Inactive Levaquin 500 mg tablet RxNorm: 524159 1 Tablet(s) PO daily 12/29/2017 01/04/2018 Inactive mupirocin 2 % topical ointment RxNorm: 423507 1 Gram(s) TOP BID to affected area 12/28/2017 12/28/2017 Inactive Levaquin 500 mg tablet RxNorm: 873030 1 Tablet(s) PO daily 12/28/2017 12/28/2017 Inactive hydrocodone 10 mg-acetaminophen 325 mg tablet RxNorm: 876513 2 Tablet(s) PO Q6 PRN 12/28/2017 01/18/2018 Inactive Novolin 70/30 U-100 Insulin 100 unit/mL subcutaneous suspension RxNorm: 490790 INJECT 100 UNITS UNDER THE SKIN TWO TIMES A DAY 11/24/2017 12/13/2017 Inactive hydrocodone 10 mg-acetaminophen 325 mg tablet RxNorm: 922878 2 Tablet(s) PO Q6 PRN 11/02/2017 11/23/2017 Inactive nystatin 100,000 unit/gram topical powder RxNorm: 269158 APPLY ONE GRAM TOPICALLY FOUR TIMES A DAY NEEDED 10/22/2017 11/02/2017 Inactive hydrocodone 10 mg-acetaminophen 325 mg tablet RxNorm: 705744 2 Tablet(s) PO Q6 PRN 09/21/2017 10/12/2017 Inactive Levaquin 500 mg tablet RxNorm: 547048 1 Tablet(s) PO daily 09/04/2017 09/03/2017 Inactive Levaquin 500 mg tablet RxNorm: 878915 1 Tablet(s) PO daily 09/04/2017 09/10/2017 Inactive Keflex 500 mg capsule RxNorm: 474665 1 Capsule(s) PO daily 08/19/2017 08/18/2017 Inactive Take probiotic while on antibiotic hydrocodone 10 mg-acetaminophen 325 mg tablet RxNorm: 470891 2 Tablet(s) PO Q6 PRN 08/19/2017 09/09/2017 Inactive Keflex 500 mg capsule RxNorm: 141111 1 Capsule(s) PO QID 08/19/2017 12/27/2017 Inactive Take probiotic while on antibiotic mupirocin 2 % topical ointment RxNorm: 212906 1 Gram(s) TOP BID to affected area 08/19/2017 12/27/2017 Inactive hydrocodone 10 mg-acetaminophen 325 mg tablet RxNorm: 518384 2 Tablet(s) PO Q6 PRN 07/20/2017 08/10/2017 Inactive hydrocodone 10 mg-acetaminophen 325 mg tablet RxNorm: 986172 2 Tablet(s) PO Q6 PRN 06/12/2017 07/03/2017 Inactive ipratropium-albuterol 0.5 mg-3 mg(2.5 mg base)/3 mL nebulization soln RxNorm: 0298283 INHALE ONE VIAL VIA NEBULIZER EVERY 4 HOURS NEEDED FOR SHORTNESS OF BREATH 06/03/2017 No Stop Date Active hydrocodone 10 mg-acetaminophen 325 mg tablet RxNorm: 749606 2 Tablet(s) PO Q6 PRN 05/13/2017 06/03/2017 Inactive Lasix 80 mg tablet RxNorm: 585746 Tablet(s) TAKE ONE TABLET BY MOUTH DAILY 05/06/2017 11/01/2017 Inactive hydrocodone 10 mg-acetaminophen 325 mg tablet RxNorm: 021082 2 Tablet(s) PO Q6 PRN 04/13/2017 05/04/2017 Inactive hydrocodone 10 mg-acetaminophen 325 mg tablet RxNorm: 417558 2 Tablet(s) PO Q6 PRN 03/02/2017 03/23/2017 Inactive potassium chloride ER 10 mEq tablet,extended release RxNorm: 033007 TAKE ONE TABLET BY MOUTH FOUR TIMES A WEEK NEEDED 02/09/2017 03/22/2017 Inactive potassium chloride ER 10 mEq tablet,extended release RxNorm: 328712 TAKE ONE TABLET BY MOUTH FOUR TIMES A WEEK NEEDED 02/09/2017 02/08/2017 Inactive Neurontin 800 mg tablet RxNorm: 888353 TAKE ONE TABLET BY MOUTH THREE TIMES A DAY 01/20/2017 05/19/2017 Inactive hydrocodone 10 mg-acetaminophen 325 mg tablet RxNorm: 818163 2 Tablet(s) PO Q6 PRN 01/12/2017 02/02/2017 Inactive Lasix 80 mg tablet RxNorm: 009176 Tablet(s) TAKE ONE TABLET BY MOUTH DAILY 01/12/2017 03/12/2017 Inactive Novolin 70/30 U-100 Insulin 100 unit/mL subcutaneous suspension RxNorm: 005636 INJECT 100 UNITS UNDER THE SKIN TWO TIMES A DAY 01/09/2017 02/17/2017 Inactive Please contact prescriber by phone/fax. 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 to Butadiene Compressor Operator unable to process Rejection Sifk=700 Rejection pibsjr=[id number] FAX FAILED: No local dialtone; too many attempts to dial Lasix 80 mg tablet RxNorm: 293515 Tablet(s) TAKE ONE TABLET BY MOUTH DAILY 01/06/2017 01/11/2017 Inactive hydrocodone 10 mg-acetaminophen 325 mg tablet RxNorm: 751814 2 Tablet(s) PO Q6 PRN 11/25/2016 12/16/2016 Inactive nystatin 100,000 unit/gram topical powder RxNorm: 415414 1 Gram(s) TOP QID as needed 11/25/2016 10/21/2017 Inactive hydrocodone 10 mg-acetaminophen 325 mg tablet RxNorm: 493317 2 Tablet(s) PO Q6 PRN 10/30/2016 11/20/2016 Inactive hydrocodone 10 mg-acetaminophen 325 mg tablet RxNorm: 857580 2 Tablet(s) PO Q6 PRN 10/01/2016 10/22/2016 Inactive hydrocodone 10 mg-acetaminophen 325 mg tablet RxNorm: 141917 2 Tablet(s) PO Q6 PRN 09/01/2016 09/22/2016 Inactive Novolin 70/30 100 unit/mL subcutaneous suspension RxNorm: 913913 INJECT 100 UNITS UNDER THE SKIN TWO TIMES A DAY 08/21/2016 09/04/2016 Inactive hydrocodone 10 mg-acetaminophen 325 mg tablet RxNorm: 287715 2 Tablet(s) PO Q6 PRN 07/29/2016 08/19/2016 Inactive hydrocodone 10 mg-acetaminophen 325 mg tablet RxNorm: 212992 2 Tablet(s) PO Q6 PRN 06/30/2016 07/21/2016 Inactive Neurontin 800 mg tablet RxNorm: 235656 1 Tablet(s) PO TID 06/23/2016 12/19/2016 Inactive glyburide 5 mg tablet RxNorm: 900241 TAKE ONE TABLET BY MOUTH TWICE A DAY 06/12/2016 09/09/2016 Inactive hydrocodone 10 mg-acetaminophen 325 mg tablet RxNorm: 459031 2 Tablet(s) PO Q6 PRN 05/16/2016 06/06/2016 Inactive morphine ER 15 mg tablet,extended release RxNorm: 472769 1 Tablet(s) 15mg IR PO BID as needed 05/13/2016 06/11/2016 Inactive nystatin 100,000 unit/gram topical powder RxNorm: 821521 1 Gram(s) TOP QID as needed 05/13/2016 11/24/2016 Inactive gemfibrozil 600 mg tablet RxNorm: 118496 TAKE ONE TABLET BY MOUTH TWICE A DAY 05/05/2016 10/31/2016 Inactive hydrocodone 10 mg-acetaminophen 325 mg tablet RxNorm: 749935 2 Tablet(s) PO Q6 PRN 04/18/2016 05/09/2016 Inactive Keflex 500 mg capsule RxNorm: 539367 1 Capsule(s) PO TID 04/15/2016 06/22/2016 Inactive Keflex 500 mg capsule RxNorm: 806356 1 Capsule(s) PO TID 04/15/2016 04/14/2016 Inactive hydrocodone 10 mg-acetaminophen 325 mg tablet RxNorm: 769219 2 Tablet(s) PO Q6 PRN 03/19/2016 04/17/2016 Inactive captopril 100 mg tablet RxNorm: 899715 TAKE ONE TABLET BY MOUTH TWICE A DAY 03/03/2016 06/30/2016 Inactive gemfibrozil 600 mg tablet RxNorm: 597828 TAKE ONE TABLET BY MOUTH TWICE A DAY 03/03/2016 05/01/2016 Inactive hydrocodone 10 mg-acetaminophen 325 mg tablet RxNorm: 052165 2 Tablet(s) PO Q6 PRN 02/28/2016 03/18/2016 Inactive Cipro 500 mg tablet RxNorm: 402502 1 Tablet(s) PO BID 02/21/2016 02/27/2016 Inactive [SAVINGS FOR NON-COVERED DRUGS -- BIN:713936, PCN: ASPROD1, Group: XXXXX, ID# [id number], Questions: . THIS IS NOT INSURANCE.] hydrocodone 10 mg-acetaminophen 325 mg tablet RxNorm: 739219 2 Tablet(s) PO Q6 PRN 02/01/2016 02/27/2016 Inactive hydrocodone 10 mg-acetaminophen 325 mg tablet RxNorm: 806048 2 Tablet(s) PO Q6 PRN 01/08/2016 01/31/2016 Inactive Lasix 80 mg tablet RxNorm: 704413 TAKE ONE TABLET BY MOUTH DAILY 12/18/2015 01/16/2016 Inactive Request already responded to by other means (e.g. phone or fax) gemfibrozil 600 mg tablet RxNorm: 092290 TAKE ONE TABLET BY MOUTH TWICE A DAY 12/18/2015 03/02/2016 Inactive Request already responded to by other means (e.g. phone or fax) glyburide 5 mg tablet RxNorm: 172892 TAKE ONE TABLET BY MOUTH TWICE A DAY 12/18/2015 01/16/2016 Inactive Request already responded to by other means (e.g. phone or fax) glyburide 5 mg tablet RxNorm: 215085 TAKE ONE TABLET BY MOUTH TWICE A DAY 12/14/2015 02/11/2016 Inactive gemfibrozil 600 mg tablet RxNorm: 818732 TAKE ONE TABLET BY MOUTH TWICE A DAY 12/14/2015 03/12/2016 Inactive potassium chloride ER 10 mEq tablet,extended release RxNorm: 735700 TAKE ONE TABLET BY MOUTH DAILY 12/14/2015 02/23/2018 Inactive potassium chloride ER 10 mEq tablet,extended release RxNorm: 710850 TAKE ONE TABLET BY MOUTH DAILY 12/14/2015 01/12/2016 Inactive Lasix 80 mg tablet RxNorm: 048572 TAKE ONE TABLET BY MOUTH DAILY 12/14/2015 02/11/2016 Inactive Neurontin 800 mg tablet RxNorm: 001832 1 Tablet(s) PO TID 12/10/2015 06/06/2016 Inactive morphine ER 15 mg tablet,extended release RxNorm: 137612 1 Tablet(s) 15mg IR PO BID as needed 12/03/2015 01/01/2016 Inactive Neurontin 800 mg tablet RxNorm: 752732 1 Tablet(s) PO TID 11/05/2015 12/09/2015 Inactive hydrocodone 10 mg-acetaminophen 325 mg tablet RxNorm: 899909 2 Tablet(s) PO Q6 PRN 10/23/2015 01/07/2016 Inactive hydrocodone 10 mg-acetaminophen 325 mg tablet RxNorm: 976627 2 Tablet(s) PO Q6 PRN 10/02/2015 10/22/2015 Inactive Neurontin 800 mg tablet RxNorm: 978903 1 Tablet(s) PO TID 09/27/2015 11/04/2015 Inactive Diflucan 150 mg tablet RxNorm: 686367 1 Tablet(s) PO daily 09/06/2015 09/05/2015 Inactive Keflex 500 mg capsule RxNorm: 502292 1 Capsule(s) PO TID 09/06/2015 12/09/2015 Inactive Diflucan 150 mg tablet RxNorm: 908810 1 Tablet(s) PO daily 09/06/2015 12/09/2015 Inactive Keflex 500 mg capsule RxNorm: 888684 1 Capsule(s) PO TID 09/06/2015 09/05/2015 Inactive Novolin 70/30 100 unit/mL subcutaneous suspension RxNorm: 379757 INJECT 100 UNITS UNDER THE SKIN TWO TIMES A DAY 08/20/2015 11/07/2015 Inactive morphine ER 15 mg tablet,extended release RxNorm: 419464 1 Tablet(s) 15mg IR PO BID as needed 08/08/2015 11/04/2015 Inactive Novolin 70/30 100 unit/mL subcutaneous suspension RxNorm: 976599 100 Unit(s) SQ BID 07/10/2015 08/08/2015 Inactive Novolin 70/30 100 unit/mL subcutaneous solution RxNorm: 779282 100 Unit(s) SQ BID 07/10/2015 07/09/2015 Inactive Mobic 15 mg tablet RxNorm: 029216 1 Tablet(s) PO daily 07/05/2015 12/31/2015 Inactive captopril 100 mg tablet RxNorm: 651734 1 Tablet(s) PO BID 07/05/2015 12/31/2015 Inactive Lopid 600 mg tablet RxNorm: 329749 1 Tablet(s) PO BID 07/05/2015 No Stop Date Active hydrocodone 10 mg-acetaminophen 325 mg tablet RxNorm: 124419 2 Tablet(s) PO Q6 PRN 07/05/2015 10/01/2015 Inactive Neurontin 800 mg tablet RxNorm: 697935 1 Tablet(s) PO TID 07/05/2015 09/26/2015 Inactive Humulin 70/30 100 unit/mL subcutaneous suspension RxNorm: 966448 100 100 Unit(s) SQ BID 07/05/2015 07/09/2015 Inactive may dispense 30 or 90 day supply Lyrica 75 mg capsule RxNorm: 598556 1 Capsule(s) PO BID 07/05/2015 07/04/2015 Inactive glyburide 5 mg tablet RxNorm: 150638 1 Tablet(s) PO BID 07/05/2015 12/13/2015 Inactive potassium chloride ER 10 mEq tablet,extended release RxNorm: 972621 1 Tablet(s) PO daily 07/05/2015 12/13/2015 Inactive Lasix 80 mg tablet RxNorm: 291051 1 Tablet(s) PO daily 07/05/2015 12/13/2015 Inactive Lyrica 75 mg capsule RxNorm: 886941 1 Capsule(s) PO BID 07/05/2015 11/04/2015 Inactive morphine ER 15 mg tablet,extended release RxNorm: 690736 1 Tablet(s) 15mg IR PO BID as needed 07/05/2015 08/03/2015 Inactive morphine 15 mg capsule RxNorm: 200105 1 Capsule(s) 15mg IR PO BID as needed 06/25/2015 07/04/2015 Inactive morphine 15 mg capsule RxNorm: 255340 1 Capsule(s) 15mg IR PO BID as needed 05/24/2015 06/22/2015 Inactive morphine 15 mg capsule RxNorm: 888393 1 Capsule(s) 15mg IR PO BID as needed 04/16/2015 05/14/2015 Inactive gemfibrozil 600 mg tablet RxNorm: 513506 1 Tablet(s) PO BID 04/11/2015 07/05/2015 Inactive Glucophage 1,000 mg tablet RxNorm: 796307 1 Tablet(s) PO BID 03/12/2015 03/05/2016 Inactive captopril 100 mg tablet RxNorm: 456053 1 Tablet(s) PO BID 03/12/2015 07/04/2015 Inactive potassium chloride ER 10 mEq tablet,extended release RxNorm: 898614 1 Tablet(s) PO daily 03/12/2015 07/04/2015 Inactive glyburide 5 mg tablet RxNorm: 367172 1 Tablet(s) PO BID 03/12/2015 07/04/2015 Inactive Mobic 15 mg tablet RxNorm: 652333 1 Tablet(s) PO daily 03/12/2015 07/04/2015 Inactive morphine 15 mg capsule RxNorm: 190965 1 Capsule(s) 15mg IR PO BID as needed 03/12/2015 04/10/2015 Inactive hydrocodone 10 mg-acetaminophen 325 mg tablet RxNorm: 787591 2 Tablet(s) PO Q6 PRN 03/12/2015 07/04/2015 Inactive Neurontin 800 mg tablet RxNorm: 725754 1 Tablet(s) PO TID 03/12/2015 06/09/2015 Inactive morphine 15 mg capsule RxNorm: 490558 1 Capsule(s) 15mg IR PO BID as needed 02/09/2015 03/10/2015 Inactive Glucophage 1,000 mg tablet RxNorm: 012401 1 Tablet(s) PO BID 01/31/2015 03/11/2015 Inactive Glucophage 1,000 mg tablet RxNorm: 460241 1 Tablet(s) PO BID 01/15/2015 01/30/2015 Inactive morphine 15 mg capsule RxNorm: 365242 1 Capsule(s) 15mg IR PO BID as needed 01/11/2015 02/08/2015 Inactive hydrocodone 10 mg-acetaminophen 325 mg tablet RxNorm: 032258 2 Tablet(s) PO Q6 PRN 01/11/2015 03/11/2015 Inactive morphine 15 mg capsule RxNorm: 128625 1 Capsule(s) 15mg IR PO BID as needed 12/13/2014 01/10/2015 Inactive morphine 15 mg capsule RxNorm: 204729 1 Capsule(s) PO BID as needed 12/08/2014 12/07/2014 Inactive morphine 15 mg capsule RxNorm: 805461 1 Capsule(s) PO BID as needed 12/08/2014 12/12/2014 Inactive hydrocodone 10 mg-acetaminophen 325 mg tablet RxNorm: 379105 2 Tablet(s) PO Q6 PRN 10/27/2014 01/10/2015 Inactive clindamycin 150 mg capsule RxNorm: 317002 1 Capsule(s) PO QID 10/24/2014 11/02/2014 Inactive hydrocodone 10 mg-acetaminophen 325 mg tablet RxNorm: 658333 1 Tablet(s) PO Q6 PRN 10/24/2014 10/26/2014 Inactive Cipro 500 mg tablet RxNorm: 153288 1 Tablet(s) PO BID 09/08/2014 09/17/2014 Inactive [SAVINGS FOR NON-COVERED DRUGS -- BIN:769315, PCN: ASPROD1, Group: XXXXX, ID# [id number], Questions: . THIS IS NOT INSURANCE.] Flagyl 500 mg tablet RxNorm: 466461 1 Tablet(s) PO TID 09/08/2014 09/17/2014 Inactive [SAVINGS FOR NON-COVERED DRUGS -- BIN:125189, PCN: ASPROD1, Group: XXXXX, ID# [id number], Questions: . THIS IS NOT INSURANCE.] Flagyl 500 mg tablet RxNorm: 326334 1 Tablet(s) PO TID 09/08/2014 09/07/2014 Inactive Cipro 500 mg tablet RxNorm: 962052 1 Tablet(s) PO BID 09/08/2014 09/07/2014 Inactive Promethazine VC-Codeine 6.25 mg-5 mg-10 mg/5 mL syrup RxNorm: 361552 to 10 Milliliter(s) PO Q6 No Start Date Active multivitamin oral RxNorm: 66098 oral No Start Date Active Fish Oil capsule RxNorm: Capsule(s) PO 1200 mg No Start Date Active melatonin 5 mg tablet RxNorm: 201251 2 Tablet(s) PO QHS No Start Date Active vitamin E 1,000 unit tablet RxNorm: 863283 oral No Start Date Active Calcium 600 + D(3) oral RxNorm: 788074 oral No Start Date Active Multiple Vitamins Daily oral RxNorm: 71331 oral No Start Date Active oxycodone 10 mg tablet RxNorm: 1168464 1 Tablet(s) PO Q6 PRN No Start Date Active Lopid 600 mg tablet RxNorm: 363091 1 Tablet(s) PO BID No Start Date 04/10/2015 Inactive vitamin [id number] B1 intramuscular RxNorm: 63605 intramuscular No Start Date 11/04/2015 Inactive Mobic 15 mg tablet RxNorm: 556271 1 Tablet(s) PO daily No Start Date 03/11/2015 Inactive Vitamin D3 2,000 unit capsule RxNorm: 394447 1 Capsule(s) PO daily No Start Date 11/04/2015 Inactive Vitamin C 1,000 mg tablet RxNorm: 206933 1 Tablet(s) PO daily No Start Date 11/04/2015 Inactive captopril 100 mg tablet RxNorm: 433556 1 Tablet(s) PO BID No Start Date 03/11/2015 Inactive nystatin 100,000 unit/gram topical powder RxNorm: 093469 1 Gram(s) TOP QID as needed No Start Date 05/12/2016 Inactive Neurontin 800 mg tablet RxNorm: 523947 1 Tablet(s) PO TID No Start Date 03/11/2015 Inactive mupirocin 2 % topical ointment RxNorm: 183176 1 Gram(s) TOP BID to affected area No Start Date 08/18/2017 Inactive KCL 20 meq RxNorm: 1 Tablet(s) PO daily No Start Date 03/11/2015 Inactive Lasix 80 mg tablet RxNorm: 718855 1 Tablet(s) PO daily No Start Date 07/04/2015 Inactive ipratropium-albuterol 0.5 mg-3 mg(2.5 mg base)/3 mL nebulization soln RxNorm: 7446397 INHALE ONE VIAL VIA NEBULIZER EVERY 4 HOURS NEEDED FOR SHORTNESS OF BREATH No Start Date 06/02/2017 Inactive Lyrica 75 mg capsule RxNorm: 145376 1 Capsule(s) PO BID No Start Date 07/04/2015 Inactive glyburide 5 mg tablet RxNorm: 359380 1 Tablet(s) PO BID No Start Date 03/11/2015 Inactive hydrocodone 10 mg-acetaminophen 325 mg tablet RxNorm: 250273 1 Tablet(s) PO Q6 PRN No Start Date 10/23/2014 Inactive Glucophage 1,000 mg tablet RxNorm: 043259 2 Tablet(s) PO daily No Start Date 01/14/2015 Inactive Humulin 70/30 100 unit/mL subcutaneous suspension RxNorm: 085743 100 Unit(s) SQ BID No Start Date [...] Code Item Item Code Result Date %Hba1C Dtu266 % HbA1c 12633- 6 7.3 % 07/05/2015 %Hba1C Cik862 Gluc Ave 163 mg/dL 07/05/2015 Cbc With Differential Ord2 WBC 8.10 K/ul 07/05/2015 Cbc With Differential Ord2 RBC 4.36 M/ul 07/05/2015 Cbc With Differential Ord2 HGB 13.3 g/dl 07/05/2015 Cbc With Differential Ord2 Neut% 66.8 % 07/05/2015 Cbc With Differential Ord2 HCT 40.8 % 07/05/2015 Cbc With Differential Ord2 MCV 93.6 fl 07/05/2015 Cbc With Differential Ord2 Lymph% 20.4 % 07/05/2015 Cbc With Differential Ord2 MCH 30.5 pg 07/05/2015 Cbc With Differential Ord2 [place]% 8.1 % 07/05/2015 Cbc With Differential Ord2 Eos% 4.3 % 07/05/2015 Cbc With Differential Ord2 MCHC 32.6 pg 07/05/2015 Cbc With Differential Ord2 Baso% 0.4 % 07/05/2015 Cbc With Differential Ord2 PLT 212 K/ul 07/05/2015 Cbc With Differential Ord2 Neut ABS# 5.41 K/ul 07/05/2015 Cbc With Differential Ord2 RDW 13.1 % 07/05/2015 Cbc With Differential Ord2 Lymph ABS# 1.65 K/ul 07/05/2015 Cbc With Differential Ord2 [place] ABS# 0.7 K/ul 07/05/2015 Cbc With Differential Ord2 Eos ABS# 0.4 K/ul 07/05/2015 Cbc With Differential Ord2 Baso ABS# 0.0 K/ul 07/05/2015 Cbc With Differential Ord2 New Analyzer Notice Please note new ref ranges starting 05-30-2015 due to implemntation of new five part differential hematolgy analyzer. 07/05/2015 Tsh Ord6 hTSH II 1.45 uIU/mL 07/05/2015 Total Psa Ord10 PSA 0.14 ng/mL 07/05/2015 Comp Metabolic Spg375 NA 138 mEq/L 07/05/2015 Comp Metabolic Mps457 K 4.7 mEq/L 07/05/2015 Comp Metabolic Oet479 CL 101 mEq/L 07/05/2015 Comp Metabolic Auk785 CO2 27.0 mEq/L 07/05/2015 Comp Metabolic Tzi069 ANION GAP 15 07/05/2015 Comp Metabolic Uxy356 GLUCOSE 152 mg/dL 07/05/2015 Comp Metabolic Ftg289 Creat 0.8 mg/dL 07/05/2015 Comp Metabolic Scw250 eGFR 106 ml/min/1.73m2 07/05/2015 Comp Metabolic Upx954 BUN 14 mg/dL 07/05/2015 Comp Metabolic Syt061 B/C Ratio 17.7 Ratio 07/05/2015 Comp Metabolic Uvh996 CALCIUM 9.4 mg/dL 07/05/2015 Comp Metabolic Umg899 ALK PHOS 77 U/L 07/05/2015 Comp Metabolic Sni953 AST(SGOT) 23 U/L 07/05/2015 Comp Metabolic Zsz099 ALT(SGPT) 25 U/L 07/05/2015 Comp Metabolic Ern858 BILI T 0.6 mg/dL 07/05/2015 Comp Metabolic Sep711 ALBUMIN 4.0 g/dL 07/05/2015 Comp Metabolic Zql440 TPRO 6.5 g/dL 07/05/2015 Comp Metabolic Stz756 GLOB 2.5 g/dL 07/05/2015 Comp Metabolic Xgb135 A/G Ratio 1.6 Ratio 07/05/2015 Comp Metabolic Jnf445 Osmo 279 mOsmo 07/05/2015 Cbc With Differential [...] Differential Ord2 RDW 13.3 % 03/12/2015 %Hba1C Med866 % HbA1c 24209- 6 6.6 % 03/12/2015 %Hba1C Lss636 Gluc Ave 143 mg/dL 03/12/2015 Comp Metabolic Wys891 NA 135 mEq/L 03/12/2015 Comp Metabolic Qbi632 K 4.7 mEq/L 03/12/2015 Comp Metabolic Rdd085 CL 98 mEq/L 03/12/2015 Comp Metabolic Eiy123 CO2 27.0 mEq/L 03/12/2015 Comp Metabolic Rdz479 ANION GAP 15 03/12/2015 Comp Metabolic Jfs081 GLUCOSE 232 mg/dL 03/12/2015 Comp Metabolic Agd770 Creat 0.8 mg/dL 03/12/2015 Comp Metabolic Zwc789 eGFR 104 ml/min/1.73m2 03/12/2015 Comp Metabolic Pff160 BUN 19 mg/dL 03/12/2015 Comp Metabolic Wcq914 B/C Ratio 23.8 Ratio 03/12/2015 Comp Metabolic Uai661 CALCIUM 9.2 mg/dL 03/12/2015 Comp Metabolic Cat744 ALK PHOS 74 U/L 03/12/2015 Comp Metabolic Nba493 AST(SGOT) 24 U/L 03/12/2015 Comp Metabolic Sdm380 ALT(SGPT) 29 U/L 03/12/2015 Comp Metabolic Nio710 BILI T 0.4 mg/dL 03/12/2015 Comp Metabolic Ejm306 ALBUMIN 4.2 g/dL 03/12/2015 Comp Metabolic Cxk059 TPRO 6.5 g/dL 03/12/2015 Comp Metabolic Cng937 GLOB 2.3 g/dL 03/12/2015 Comp Metabolic Cav031 A/G Ratio 1.8 Ratio 03/12/2015 Comp Metabolic Tsd064 Osmo 280 mOsmo 03/12/2015 Review of Systems [...] Codes Date URINALYSIS NONAUTO W/O SCOPE CPT-4: 19810 02/22/2016 Vital Signs Date Vital 11/05/2015 Blood [...] vision. Last eye exam January was told 20 no signs of diabetic retinopathy. headache Location [...] data Encounters Encounter Performer Location Codes Date ([id number]) [id number] EST. PATIENT, LEVEL IV Diagnosis: Type 2 diabetes mellitus with diabetic polyneuropathy[ICD10: E11.42] Diagnosis: Essential (primary) hypertension[ICD10: I10] Diagnosis: Panniculitis, unspecified[ICD10: M79.3] Diagnosis: Bilateral primary osteoarthritis of knee[ICD10: M17.0] Diagnosis: Heart failure, unspecified[ICD10: I50.9] Graciela Treviño MD, [facility] CPT-4: 60704 11/05/2015 [id number] EST. PATIENT, LEVEL IV Diagnosis: Encounter for follow-up examination after completed treatment for conditions other than malignant neoplasm[ICD10: Z09] Ashlyn Treviño MD, [facility] CPT-4: 54930 09/27/2015 ([id number]) 16224 EST. 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: E11.42] [facility] CPT-4: 47341 03/12/2015 ([id number]) OFFICE VISIT, NEW - LEVEL 4 Diagnosis: ESSENTIAL HYPERTENSION[ICD9: 401.9] Diagnosis: Osteoarthritis of knees, bilateral[ICD9: 715.96] Diagnosis: Diabetes mellitus[ICD9: 250.00] Diagnosis: Double vision[ICD9: 368.2] Diagnosis: ACUTE SINUSITIS[ICD9: 461.9] [facility] CPT-4: 58895 10/24/2014 Plan of Care Planned Activity Notes Codes Status Date Appointment: Graciela Ruvalcaba WPtel: [phone] [phone] [place] (30 min) Complex 01/01/2017 Appointment: Nurse Visit 02/22/2016 Patient Education: Patient Medication Summary Completed 02/22/2016 App[facility]ment: [phone] [phone] [place] ([place]) Complex 02/07/2016 [phone] [facility] [place] (15 min) Moderate 01/10/2016 Visit Plan: [...] With Differential Pending 11/05/2015 Care Plan: %Hba1C [facility] : 92718-6 Pending 11/05/2015 Visit Plan: Hospital follow up [...] Completed 03/12/2015 Appointment: Florence Treviño [facility]el[facility] ([facility] Complex 01/24/2015 Visit [...] time 10/24/2014 Appointment: Graciela Ruvalcaba WPtel: [facility] [id number] [place] New Patient 10/24/2014 Patient Education: Patient Medication Summary Completed 10/24/2014 Patient Education: Hypertension Completed 10/24/2014 Appointment: Florence Treviño WPtel[facility] [id number] [facility] [id number] [place] New Patient 09/25/2014 Instructions [...]
--- OUTSIDE RECORDS SUMMARY | 2018-11-25 12:55 | XMS REPORT | CCD ---
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 Strand Operator Name Role Phone PP Unavailable CCM Unavailable Summary Purpose Interface Exchange Insurance Providers Payer name Policy type / Coverage type Covered democrat ID Effective Begin Date Effective End Date [facility] [id number] 2015 Unknown Family history Father Diagnosis Age [...] Retired disabled 10/24/[address]: 8983219 Former smoker quit 1993 10/24/2014 Allergies, Adverse [...] Start Date Stop Date Status Fill Instructions mupirocin 2 % topical ointment RxNorm: 071644 APPLY TO AFFECTED AREA(S) TWO TIMES A DAY 07/05/2018 07/26/2018 Active levothyroxine 25 mcg tablet RxNorm: 969448 1 Tablet(s) PO daily 06/03/2018 09/30/2018 Active levothyroxine 25 mcg tablet RxNorm: 853593 1 Tablet(s) PO daily 06/03/2018 06/02/2018 Inactive hydrocodone 10 mg-acetaminophen 325 mg tablet RxNorm: 833291 2 Tablet(s) PO Q6 PRN 05/25/2018 06/15/2018 Inactive hydrocodone 10 mg-acetaminophen 325 mg tablet RxNorm: 245854 2 Tablet(s) PO Q6 PRN 04/13/2018 05/04/2018 Inactive hydrocodone 10 mg-acetaminophen 325 mg tablet RxNorm: 637974 2 Tablet(s) PO Q6 PRN 03/12/2018 04/02/2018 Inactive potassium chloride ER 10 mEq tablet,extended release RxNorm: 045409 TAKE ONE TABLET BY MOUTH FOUR TIMES A WEEK NEEDED 02/24/2018 07/13/2018 Active Neurontin 800 mg tablet RxNorm: 990848 TAKE ONE TABLET BY MOUTH THREE TIMES A DAY 02/09/2018 05/09/2018 Inactive nystatin 100,000 unit/gram topical powder RxNorm: 192061 APPLY ONE GRAM TOPICALLY FOUR TIMES A DAY NEEDED 02/03/2018 02/14/2018 Inactive hydrocodone 10 mg-acetaminophen 325 mg tablet RxNorm: 558468 2 Tablet(s) PO Q6 PRN 01/26/2018 02/16/2018 Inactive Novolin 70/30 U-100 Insulin 100 unit/mL subcutaneous suspension RxNorm: 857182 INJECT 100 UNITS UNDER THE SKIN TWO TIMES A DAY 01/04/2018 05/03/2018 Inactive mupirocin 2 % topical ointment RxNorm: 310565 1 Gram(s) TOP BID to affected area 12/29/2017 07/04/2018 Inactive Levaquin 500 mg tablet RxNorm: 034109 1 Tablet(s) PO daily 12/29/2017 01/04/2018 Inactive mupirocin 2 % topical ointment RxNorm: 262483 1 Gram(s) TOP BID to affected area 12/28/2017 12/28/2017 Inactive Levaquin 500 mg tablet RxNorm: 112596 1 Tablet(s) PO daily 12/28/2017 12/28/2017 Inactive hydrocodone 10 mg-acetaminophen 325 mg tablet RxNorm: 868309 2 Tablet(s) PO Q6 PRN 12/28/2017 01/18/2018 Inactive Novolin 70/30 U-100 Insulin 100 unit/mL subcutaneous suspension RxNorm: 190972 INJECT 100 UNITS UNDER THE SKIN TWO TIMES A DAY 11/24/2017 12/13/2017 Inactive hydrocodone 10 mg-acetaminophen 325 mg tablet RxNorm: 959117 2 Tablet(s) PO Q6 PRN 11/02/2017 11/23/2017 Inactive nystatin 100,000 unit/gram topical powder RxNorm: 256683 APPLY ONE GRAM TOPICALLY FOUR TIMES A DAY NEEDED 10/22/2017 11/02/2017 Inactive hydrocodone 10 mg-acetaminophen 325 mg tablet RxNorm: 076298 2 Tablet(s) PO Q6 PRN 09/21/2017 10/12/2017 Inactive Levaquin 500 mg tablet RxNorm: 554972 1 Tablet(s) PO daily 09/04/2017 09/03/2017 Inactive Levaquin 500 mg tablet RxNorm: 856037 1 Tablet(s) PO daily 09/04/2017 09/10/2017 Inactive Keflex 500 mg capsule RxNorm: 779270 1 Capsule(s) PO daily 08/19/2017 08/18/2017 Inactive Take probiotic while on antibiotic hydrocodone 10 mg-acetaminophen 325 mg tablet RxNorm: 692934 2 Tablet(s) PO Q6 PRN 08/19/2017 09/09/2017 Inactive Keflex 500 mg capsule RxNorm: 273266 1 Capsule(s) PO QID 08/19/2017 12/27/2017 Inactive Take probiotic while on antibiotic mupirocin 2 % topical ointment RxNorm: 015362 1 Gram(s) TOP BID to affected area 08/19/2017 12/27/2017 Inactive hydrocodone 10 mg-acetaminophen 325 mg tablet RxNorm: 236289 2 Tablet(s) PO Q6 PRN 07/20/2017 08/10/2017 Inactive hydrocodone 10 mg-acetaminophen 325 mg tablet RxNorm: 344300 2 Tablet(s) PO Q6 PRN 06/12/2017 07/03/2017 Inactive ipratropium-albuterol 0.5 mg-3 mg(2.5 mg base)/3 mL nebulization soln RxNorm: 0323703 INHALE ONE VIAL VIA NEBULIZER EVERY 4 HOURS NEEDED FOR SHORTNESS OF BREATH 06/03/2017 No Stop Date Active hydrocodone 10 mg-acetaminophen 325 mg tablet RxNorm: 784759 2 Tablet(s) PO Q6 PRN 05/13/2017 06/03/2017 Inactive Lasix 80 mg tablet RxNorm: 518732 Tablet(s) TAKE ONE TABLET BY MOUTH DAILY 05/06/2017 11/01/2017 Inactive hydrocodone 10 mg-acetaminophen 325 mg tablet RxNorm: 540449 2 Tablet(s) PO Q6 PRN 04/13/2017 05/04/2017 Inactive hydrocodone 10 mg-acetaminophen 325 mg tablet RxNorm: 402749 2 Tablet(s) PO Q6 PRN 03/02/2017 03/23/2017 Inactive potassium chloride ER 10 mEq tablet,extended release RxNorm: 553053 TAKE ONE TABLET BY MOUTH FOUR TIMES A WEEK NEEDED 02/09/2017 03/22/2017 Inactive potassium chloride ER 10 mEq tablet,extended release RxNorm: 082141 TAKE ONE TABLET BY MOUTH FOUR TIMES A WEEK NEEDED 02/09/2017 02/08/2017 Inactive Neurontin 800 mg tablet RxNorm: 062748 TAKE ONE TABLET BY MOUTH THREE TIMES A DAY 01/20/2017 05/19/2017 Inactive hydrocodone 10 mg-acetaminophen 325 mg tablet RxNorm: 035570 2 Tablet(s) PO Q6 PRN 01/12/2017 02/02/2017 Inactive Lasix 80 mg tablet RxNorm: 888487 Tablet(s) TAKE ONE TABLET BY MOUTH DAILY 01/12/2017 03/12/2017 Inactive Novolin 70/30 U-100 Insulin 100 unit/mL subcutaneous suspension RxNorm: 506120 INJECT 100 UNITS UNDER THE SKIN TWO TIMES A DAY 01/09/2017 02/17/2017 Inactive Please contact prescriber by phone/fax. 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 Rejection Hili=502 Rejection [id number] FAX FAILED: No local dialtone; too many attempts to dial Lasix 80 mg tablet RxNorm: 393736 Tablet(s) TAKE ONE TABLET BY MOUTH DAILY 01/06/2017 01/11/2017 Inactive hydrocodone 10 mg-acetaminophen 325 mg tablet RxNorm: 949777 2 Tablet(s) PO Q6 PRN 11/25/2016 12/16/2016 Inactive nystatin 100,000 unit/gram topical powder RxNorm: 517390 1 Gram(s) TOP QID as needed 11/25/2016 10/21/2017 Inactive hydrocodone 10 mg-acetaminophen 325 mg tablet RxNorm: 897748 2 Tablet(s) PO Q6 PRN 10/30/2016 11/20/2016 Inactive hydrocodone 10 mg-acetaminophen 325 mg tablet RxNorm: 717547 2 Tablet(s) PO Q6 PRN 10/01/2016 10/22/2016 Inactive hydrocodone 10 mg-acetaminophen 325 mg tablet RxNorm: 406573 2 Tablet(s) PO Q6 PRN 09/01/2016 09/22/2016 Inactive Novolin 70/30 100 unit/mL subcutaneous suspension RxNorm: 367077 INJECT 100 UNITS UNDER THE SKIN TWO TIMES A DAY 08/21/2016 09/04/2016 Inactive hydrocodone 10 mg-acetaminophen 325 mg tablet RxNorm: 907590 2 Tablet(s) PO Q6 PRN 07/29/2016 08/19/2016 Inactive hydrocodone 10 mg-acetaminophen 325 mg tablet RxNorm: 491713 2 Tablet(s) PO Q6 PRN 06/30/2016 07/21/2016 Inactive Neurontin 800 mg tablet RxNorm: 682351 1 Tablet(s) PO TID 06/23/2016 12/19/2016 Inactive glyburide 5 mg tablet RxNorm: 615844 TAKE ONE TABLET BY MOUTH TWICE A DAY 06/12/2016 09/09/2016 Inactive hydrocodone 10 mg-acetaminophen 325 mg tablet RxNorm: 376421 2 Tablet(s) PO Q6 PRN 05/16/2016 06/06/2016 Inactive morphine ER 15 mg tablet,extended release RxNorm: 827152 1 Tablet(s) 15mg IR PO BID as needed 05/13/2016 06/11/2016 Inactive nystatin 100,000 unit/gram topical powder RxNorm: 888467 1 Gram(s) TOP QID as needed 05/13/2016 11/24/2016 Inactive gemfibrozil 600 mg tablet RxNorm: 963049 TAKE ONE TABLET BY MOUTH TWICE A DAY 05/05/2016 10/31/2016 Inactive hydrocodone 10 mg-acetaminophen 325 mg tablet RxNorm: 616133 2 Tablet(s) PO Q6 PRN 04/18/2016 05/09/2016 Inactive Keflex 500 mg capsule RxNorm: 110633 1 Capsule(s) PO TID 04/15/2016 06/22/2016 Inactive Keflex 500 mg capsule RxNorm: 452067 1 Capsule(s) PO TID 04/15/2016 04/14/2016 Inactive hydrocodone 10 mg-acetaminophen 325 mg tablet RxNorm: 372322 2 Tablet(s) PO Q6 PRN 03/19/2016 04/17/2016 Inactive captopril 100 mg tablet RxNorm: 314354 TAKE ONE TABLET BY MOUTH TWICE A DAY 03/03/2016 06/30/2016 Inactive gemfibrozil 600 mg tablet RxNorm: 200919 TAKE ONE TABLET BY MOUTH TWICE A DAY 03/03/2016 05/01/2016 Inactive hydrocodone 10 mg-acetaminophen 325 mg tablet RxNorm: 617966 2 Tablet(s) PO Q6 PRN 02/28/2016 03/18/2016 Inactive Cipro 500 mg tablet RxNorm: 650365 1 Tablet(s) PO BID 02/21/2016 02/27/2016 Inactive [SAVINGS FOR NON-COVERED DRUGS -- BIN:[id number], PCN: [id number], Group: XXXXX, ID# [id number], Questions: . THIS IS NOT INSURANCE.] hydrocodone 10 mg-acetaminophen 325 mg tablet RxNorm: 528120 2 Tablet(s) PO Q6 PRN 02/01/2016 02/27/2016 Inactive hydrocodone 10 mg-acetaminophen 325 mg tablet RxNorm: 344695 2 Tablet(s) PO Q6 PRN 01/08/2016 01/31/2016 Inactive Lasix 80 mg tablet RxNorm: 976308 TAKE ONE TABLET BY MOUTH DAILY 12/18/2015 01/16/2016 Inactive Request already responded to by other means (e.g. phone or fax) gemfibrozil 600 mg tablet RxNorm: 457466 TAKE ONE TABLET BY MOUTH TWICE A DAY 12/18/2015 03/02/2016 Inactive Request already responded to by other means (e.g. phone or fax) glyburide 5 mg tablet RxNorm: 751783 TAKE ONE TABLET BY MOUTH TWICE A DAY 12/18/2015 01/16/2016 Inactive Request already responded to by other means (e.g. phone or fax) glyburide 5 mg tablet RxNorm: 646774 TAKE ONE TABLET BY MOUTH TWICE A DAY 12/14/2015 02/11/2016 Inactive gemfibrozil 600 mg tablet RxNorm: 048345 TAKE ONE TABLET BY MOUTH TWICE A DAY 12/14/2015 03/12/2016 Inactive potassium chloride ER 10 mEq tablet,extended release RxNorm: 028855 TAKE ONE TABLET BY MOUTH DAILY 12/14/2015 02/23/2018 Inactive potassium chloride ER 10 mEq tablet,extended release RxNorm: 711040 TAKE ONE TABLET BY MOUTH DAILY 12/14/2015 01/12/2016 Inactive Lasix 80 mg tablet RxNorm: 306975 TAKE ONE TABLET BY MOUTH DAILY 12/14/2015 02/11/2016 Inactive Neurontin 800 mg tablet RxNorm: 064611 1 Tablet(s) PO TID 12/10/2015 06/06/2016 Inactive morphine ER 15 mg tablet,extended release RxNorm: 431046 1 Tablet(s) 15mg IR PO BID as needed 12/03/2015 01/01/2016 Inactive Neurontin 800 mg tablet RxNorm: 235635 1 Tablet(s) PO TID 11/05/2015 12/09/2015 Inactive hydrocodone 10 mg-acetaminophen 325 mg tablet RxNorm: 904572 2 Tablet(s) PO Q6 PRN 10/23/2015 01/07/2016 Inactive hydrocodone 10 mg-acetaminophen 325 mg tablet RxNorm: 871799 2 Tablet(s) PO Q6 PRN 10/02/2015 10/22/2015 Inactive Neurontin 800 mg tablet RxNorm: 879367 1 Tablet(s) PO TID 09/27/2015 11/04/2015 Inactive Diflucan 150 mg tablet RxNorm: 870788 1 Tablet(s) PO daily 09/06/2015 09/05/2015 Inactive Keflex 500 mg capsule RxNorm: 925347 1 Capsule(s) PO TID 09/06/2015 12/09/2015 Inactive Diflucan 150 mg tablet RxNorm: 419889 1 Tablet(s) PO daily 09/06/2015 12/09/2015 Inactive Keflex 500 mg capsule RxNorm: 321800 1 Capsule(s) PO TID 09/06/2015 09/05/2015 Inactive Novolin 70/30 100 unit/mL subcutaneous suspension RxNorm: 295093 INJECT 100 UNITS UNDER THE SKIN TWO TIMES A DAY 08/20/2015 11/07/2015 Inactive morphine ER 15 mg tablet,extended release RxNorm: 652129 1 Tablet(s) 15mg IR PO BID as needed 08/08/2015 11/04/2015 Inactive Novolin 70/30 100 unit/mL subcutaneous suspension RxNorm: 946290 100 Unit(s) SQ BID 07/10/2015 08/08/2015 Inactive Novolin 70/30 100 unit/mL subcutaneous solution RxNorm: 584050 100 Unit(s) SQ BID 07/10/2015 07/09/2015 Inactive Mobic 15 mg tablet RxNorm: 593413 1 Tablet(s) PO daily 07/05/2015 12/31/2015 Inactive captopril 100 mg tablet RxNorm: 195180 1 Tablet(s) PO BID 07/05/2015 12/31/2015 Inactive Lopid 600 mg tablet RxNorm: 404487 1 Tablet(s) PO BID 07/05/2015 No Stop Date Active hydrocodone 10 mg-acetaminophen 325 mg tablet RxNorm: 724693 2 Tablet(s) PO Q6 PRN 07/05/2015 10/01/2015 Inactive Neurontin 800 mg tablet RxNorm: 754258 1 Tablet(s) PO TID 07/05/2015 09/26/2015 Inactive Humulin 70/30 100 unit/mL subcutaneous suspension RxNorm: 304700 100 100 Unit(s) SQ BID 07/05/2015 07/09/2015 Inactive may dispense 30 or 90 day supply Lyrica 75 mg capsule RxNorm: 051661 1 Capsule(s) PO BID 07/05/2015 07/04/2015 Inactive glyburide 5 mg tablet RxNorm: 010282 1 Tablet(s) PO BID 07/05/2015 12/13/2015 Inactive potassium chloride ER 10 mEq tablet,extended release RxNorm: 327756 1 Tablet(s) PO daily 07/05/2015 12/13/2015 Inactive Lasix 80 mg tablet RxNorm: 763182 1 Tablet(s) PO daily 07/05/2015 12/13/2015 Inactive Lyrica 75 mg capsule RxNorm: 995801 1 Capsule(s) PO BID 07/05/2015 11/04/2015 Inactive morphine ER 15 mg tablet,extended release RxNorm: 853294 1 Tablet(s) 15mg IR PO BID as needed 07/05/2015 08/03/2015 Inactive morphine 15 mg capsule RxNorm: 664916 1 Capsule(s) 15mg IR PO BID as needed 06/25/2015 07/04/2015 Inactive morphine 15 mg capsule RxNorm: 904348 1 Capsule(s) 15mg IR PO BID as needed 05/24/2015 06/22/2015 Inactive morphine 15 mg capsule RxNorm: 020187 1 Capsule(s) 15mg IR PO BID as needed 04/16/2015 05/14/2015 Inactive gemfibrozil 600 mg tablet RxNorm: 222895 1 Tablet(s) PO BID 04/11/2015 07/05/2015 Inactive Glucophage 1,000 mg tablet RxNorm: 340162 1 Tablet(s) PO BID 03/12/2015 03/05/2016 Inactive captopril 100 mg tablet RxNorm: 267706 1 Tablet(s) PO BID 03/12/2015 07/04/2015 Inactive potassium chloride ER 10 mEq tablet,extended release RxNorm: 385816 1 Tablet(s) PO daily 03/12/2015 07/04/2015 Inactive glyburide 5 mg tablet RxNorm: 135485 1 Tablet(s) PO BID 03/12/2015 07/04/2015 Inactive Mobic 15 mg tablet RxNorm: 108517 1 Tablet(s) PO daily 03/12/2015 07/04/2015 Inactive morphine 15 mg capsule RxNorm: 381734 1 Capsule(s) 15mg IR PO BID as needed 03/12/2015 04/10/2015 Inactive hydrocodone 10 mg-acetaminophen 325 mg tablet RxNorm: 997119 2 Tablet(s) PO Q6 PRN 03/12/2015 07/04/2015 Inactive Neurontin 800 mg tablet RxNorm: 967709 1 Tablet(s) PO TID 03/12/2015 06/09/2015 Inactive morphine 15 mg capsule RxNorm: 786050 1 Capsule(s) 15mg IR PO BID as needed 02/09/2015 03/10/2015 Inactive Glucophage 1,000 mg tablet RxNorm: 179491 1 Tablet(s) PO BID 01/31/2015 03/11/2015 Inactive Glucophage 1,000 mg tablet RxNorm: 120740 1 Tablet(s) PO BID 01/15/2015 01/30/2015 Inactive morphine 15 mg capsule RxNorm: 767660 1 Capsule(s) 15mg IR PO BID as needed 01/11/2015 02/08/2015 Inactive hydrocodone 10 mg-acetaminophen 325 mg tablet RxNorm: 904892 2 Tablet(s) PO Q6 PRN 01/11/2015 03/11/2015 Inactive morphine 15 mg capsule RxNorm: 740357 1 Capsule(s) 15mg IR PO BID as needed 12/13/2014 01/10/2015 Inactive morphine 15 mg capsule RxNorm: 685159 1 Capsule(s) PO BID as needed 12/08/2014 12/07/2014 Inactive morphine 15 mg capsule RxNorm: 857042 1 Capsule(s) PO BID as needed 12/08/2014 12/12/2014 Inactive hydrocodone 10 mg-acetaminophen 325 mg tablet RxNorm: 017084 2 Tablet(s) PO Q6 PRN 10/27/2014 01/10/2015 Inactive clindamycin 150 mg capsule RxNorm: 785359 1 Capsule(s) PO QID 10/24/2014 11/02/2014 Inactive hydrocodone 10 mg-acetaminophen 325 mg tablet RxNorm: 388660 1 Tablet(s) PO Q6 PRN 10/24/2014 10/26/2014 Inactive Cipro 500 mg tablet RxNorm: 641461 1 Tablet(s) PO BID 09/08/2014 09/17/2014 Inactive [SAVINGS FOR NON-COVERED DRUGS -- BIN:[id number], PCN: ASPROD1, Group: XXXXX, ID# [id number], Questions: . THIS IS NOT INSURANCE.] Flagyl 500 mg tablet RxNorm: 621084 1 Tablet(s) PO TID 09/08/2014 09/17/2014 Inactive [SAVINGS FOR NON-COVERED DRUGS -- BIN:905512, PCN: ASPROD1, Group: XXXXX, ID# [id number], Questions: . THIS IS NOT INSURANCE.] Flagyl 500 mg tablet RxNorm: 128440 1 Tablet(s) PO TID 09/08/2014 09/07/2014 Inactive Cipro 500 mg tablet RxNorm: 702104 1 Tablet(s) PO BID 09/08/2014 09/07/2014 Inactive Promethazine VC-Codeine 6.25 mg-5 mg-10 mg/5 mL syrup RxNorm: 012742 to 10 Milliliter(s) PO Q6 No Start Date Active multivitamin oral RxNorm: 67971 oral No Start Date Active Fish Oil capsule RxNorm: Capsule(s) PO 1200 mg No Start Date Active melatonin 5 mg tablet RxNorm: 082868 2 Tablet(s) PO QHS No Start Date Active vitamin E 1,000 unit tablet RxNorm: 424970 oral No Start Date Active Calcium 600 + D(3) oral RxNorm: 834761 oral No Start Date Active Multiple Vitamins Daily oral RxNorm: 97334 oral No Start Date Active oxycodone 10 mg tablet RxNorm: 8286984 1 Tablet(s) PO Q6 PRN No Start Date Active Lopid 600 mg tablet RxNorm: 955496 1 Tablet(s) PO BID No Start Date 04/10/2015 Inactive vitamin B44-trcqpml B1 intramuscular RxNorm: 05196 intramuscular No Start Date 11/04/2015 Inactive Mobic 15 mg tablet RxNorm: 581284 1 Tablet(s) PO daily No Start Date 03/11/2015 Inactive Vitamin D3 2,000 unit capsule RxNorm: 565952 1 Capsule(s) PO daily No Start Date 11/04/2015 Inactive Vitamin C 1,000 mg tablet RxNorm: 515544 1 Tablet(s) PO daily No Start Date 11/04/2015 Inactive captopril 100 mg tablet RxNorm: 423011 1 Tablet(s) PO BID No Start Date 03/11/2015 Inactive nystatin 100,000 unit/gram topical powder RxNorm: 170810 1 Gram(s) TOP QID as needed No Start Date 05/12/2016 Inactive Neurontin 800 mg tablet RxNorm: 281703 1 Tablet(s) PO TID No Start Date 03/11/2015 Inactive mupirocin 2 % topical ointment RxNorm: 867141 1 Gram(s) TOP BID to affected area No Start Date 08/18/2017 Inactive KCL 20 meq RxNorm: 1 Tablet(s) PO daily No Start Date 03/11/2015 Inactive Lasix 80 mg tablet RxNorm: 094691 1 Tablet(s) PO daily No Start Date 07/04/2015 Inactive ipratropium-albuterol 0.5 mg-3 mg(2.5 mg base)/3 mL nebulization soln RxNorm: 8492044 INHALE ONE VIAL VIA NEBULIZER EVERY 4 HOURS NEEDED FOR SHORTNESS OF BREATH No Start Date 06/02/2017 Inactive Lyrica 75 mg capsule RxNorm: 516197 1 Capsule(s) PO BID No Start Date 07/04/2015 Inactive glyburide 5 mg tablet RxNorm: 264423 1 Tablet(s) PO BID No Start Date 03/11/2015 Inactive hydrocodone 10 mg-acetaminophen 325 mg tablet RxNorm: 527059 1 Tablet(s) PO Q6 PRN No Start Date 10/23/2014 Inactive Glucophage 1,000 mg tablet RxNorm: 499073 2 Tablet(s) PO daily No Start Date 01/14/2015 Inactive Humulin 70/30 100 unit/mL subcutaneous suspension RxNorm: 850198 100 Unit(s) SQ BID No Start Date 07/04/2015 Inactive Medication Administered No Medication Administered data Immunizations No Immunization data Assessments Condition Codes Effective Dates Dysuria ICD-10: R30.0 ICD-9: 788.1 02/22/2016 Essential (primary) hypertension ICD-10: I10 ICD-9: 401.9 11/05/2015 Bilateral primary osteoarthritis of knee ICD-10: M17.0 ICD-9: 715.96 11/05/2015 Type 2 diabetes mellitus with diabetic polyneuropathy ICD-10: E11.42 ICD-9: 250.60 11/05/2015 Heart failure, unspecified ICD-10: I50.9 ICD-9: 428.0 11/05/2015 Panniculitis, unspecified ICD-10: M79.3 ICD-9: 729.30 11/05/2015 Encounter for follow-up examination after completed [...] Observation Code Item Item Code Result Date Cbc With Differential Ord2 WBC 8.10 K/ul [...] 30.5 pg 07/05/2015 Cbc With Differential Ord2 [place]% 8.1 % 07/05/2015 Cbc With Differential Ord2 [...] 1.65 K/ul 07/05/2015 Cbc With Differential Ord2 [place] ABS# 0.7 K/ul 07/05/2015 Cbc With Differential Ord2 Eos ABS# 0.4 K/ul 07/05/2015 Cbc With Differential Ord2 Baso ABS# 0.0 K/ul 07/05/2015 Cbc With Differential Ord2 New Analyzer Notice Please note new ref ranges starting 05-30-2015 due to implemntation of new five part differential hematolgy analyzer. 07/05/2015 Comp Metabolic Sat229 NA 138 mEq/L 07/05/2015 Comp Metabolic Tlz619 K 4.7 mEq/L 07/05/2015 Comp Metabolic Myt094 CL 101 mEq/L 07/05/2015 Comp Metabolic Fea621 CO2 27.0 mEq/L 07/05/2015 Comp Metabolic Tzx700 ANION GAP 15 07/05/2015 Comp Metabolic Znj579 GLUCOSE 152 mg/dL 07/05/2015 Comp Metabolic Mxr229 Creat 0.8 mg/dL 07/05/2015 Comp Metabolic Wkt817 eGFR 106 ml/min/1.73m2 07/05/2015 Comp Metabolic Vsh340 BUN 14 mg/dL 07/05/2015 Comp Metabolic Tth225 B/C Ratio 17.7 Ratio 07/05/2015 Comp Metabolic Xce892 CALCIUM 9.4 mg/dL 07/05/2015 Comp Metabolic Ebj391 ALK PHOS 77 U/L 07/05/2015 Comp Metabolic Dxw271 AST(SGOT) 23 U/L 07/05/2015 Comp Metabolic Shb332 ALT(SGPT) 25 U/L 07/05/2015 Comp Metabolic Kox519 BILI T 0.6 mg/dL 07/05/2015 Comp Metabolic Wwg245 ALBUMIN 4.0 g/dL 07/05/2015 Comp Metabolic Dlc318 TPRO 6.5 g/dL 07/05/2015 Comp Metabolic Hpq977 GLOB 2.5 g/dL 07/05/2015 Comp Metabolic Ngf115 A/G Ratio 1.6 Ratio 07/05/2015 Comp Metabolic Taw987 Osmo 279 mOsmo 07/05/2015 Total Psa Ord10 PSA 0.14 ng/mL 07/05/2015 Tsh Ord6 hTSH II 1.45 uIU/mL 07/05/2015 %Hba1C Zky790 % HbA1c 58173- 6 7.3 % 07/05/2015 %Hba1C Hfc086 Gluc Ave 163 mg/dL 07/05/2015 Comp Metabolic Zxh291 NA 135 mEq/L 03/12/2015 Comp Metabolic Glf407 K 4.7 mEq/L 03/12/2015 Comp Metabolic Sei301 CL 98 mEq/L 03/12/2015 Comp Metabolic Gal958 CO2 27.0 mEq/L 03/12/2015 Comp Metabolic Jpi035 ANION GAP 15 03/12/2015 Comp Metabolic Cdf394 GLUCOSE 232 mg/dL 03/12/2015 Comp Metabolic Xuf337 Creat 0.8 mg/dL 03/12/2015 Comp Metabolic Zhx819 eGFR 104 ml/min/1.73m2 03/12/2015 Comp Metabolic Dfr778 BUN 19 mg/dL 03/12/2015 Comp Metabolic Fnt708 B/C Ratio 23.8 Ratio 03/12/2015 Comp Metabolic Nnk437 CALCIUM 9.2 mg/dL 03/12/2015 Comp Metabolic Arh833 ALK PHOS 74 U/L 03/12/2015 Comp Metabolic Dmt026 AST(SGOT) 24 U/L 03/12/2015 Comp Metabolic Gys115 ALT(SGPT) 29 U/L 03/12/2015 Comp Metabolic Ktm177 BILI T 0.4 mg/dL 03/12/2015 Comp Metabolic Thg398 ALBUMIN 4.2 g/dL 03/12/2015 Comp Metabolic Bta228 TPRO 6.5 g/dL 03/12/2015 Comp Metabolic Rjp264 GLOB 2.3 g/dL 03/12/2015 Comp Metabolic Upf256 A/G Ratio 1.8 Ratio 03/12/2015 Comp Metabolic Elo170 Osmo 280 mOsmo 03/12/2015 %Hba1C Wnz617 % HbA1c 63258- 6 6.6 % 03/12/2015 %Hba1C Hra833 Gluc Ave 143 mg/dL 03/12/2015 Cbc With [...] Codes Date URINALYSIS NONAUTO W/O SCOPE CPT-4: 34247 02/22/2016 Vital Signs Date Vital 11/05/2015 Blood [...] data Encounters Encounter Performer Location Codes Date ([id number]) [id number] EST. PATIENT, LEVEL IV Diagnosis: Type 2 diabetes mellitus with diabetic polyneuropathy[ICD10: E11.42] Diagnosis: Essential (primary) hypertension[ICD10: I10] Diagnosis: Panniculitis, unspecified[ICD10: M79.3] Diagnosis: Bilateral primary osteoarthritis of knee[ICD10: M17.0] Diagnosis: Heart failure, unspecified[ICD10: I50.9] Graciela Treviño MD, [facility] CPT-4: 44870 11/05/2015 [id number] EST. PATIENT, LEVEL IV Diagnosis: Encounter for follow-up examination after completed treatment for conditions other than malignant neoplasm[ICD10: Z09] Ashlyn Treviño MD, [facility] CPT-4: 48997 09/27/2015 ([id number]) [id number] EST. PATIENT, LEVEL IV Diagnosis: Type 2 diabetes mellitus with diabetic polyneuropathy[ICD10: E11.42] Diagnosis: Essential (primary) hypertension[ICD10: I10] Diagnosis: Chronic pain syndrome[ICD10: G89.4] Graciela Treviño MD, [facility] CPT-4: 67882 07/05/2015 ([id number]) 23778 EST. 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: E11.42] Graciela Treviño MD, [facility] CPT-4: 55596 03/12/2015 ([id number]) OFFICE VISIT, NEW - LEVEL 4 Diagnosis: ESSENTIAL HYPERTENSION[ICD9: 401.9] Diagnosis: Osteoarthritis of knees, bilateral[ICD9: 715.96] Diagnosis: Diabetes mellitus[ICD9: 250.00] Diagnosis: Double vision[ICD9: 368.2] Diagnosis: ACUTE SINUSITIS[ICD9: 461.9] Florence Treviño MD, [facility] CPT-4: 71778 10/24/2014 Plan of Care Planned Activity Notes Codes Status Date Appointment: [facility] [phone] [phone] [place] ([place] min) Complex 01/01/2017 Appointment: Nurse Visit 02/22/2016 Patient Education: Patient Medication Summary Completed 02/22/2016 Appointment: [facility] [phone] [phone] [place] ([place] min) Complex 02/07/2016 [facility]ment: [facility] [phone] [facility] [place] (15 min) Moderate 01/10/2016 Visit [...] Pending 11/05/2015 Care Plan: %Hba1C LOINC : 80796-9 Pending 11/05/2015 Visit Plan: Hospital follow up [...] Hypertension Completed 03/12/2015 Appointment: Florence Tre[facility]ño [facility] ([facility] min) Complex 01/24/2015 Visit Plan: [...] time 10/24/2014 Appointment: [facility] [phone] [phone] [place] ([place] New Patient 10/24/2014 Patient Education: Patient Medication Summary Completed 10/24/2014 Patient Education: Hypertension Completed 10/24/2014 Appointment: Florence Treviño [facility] [place] New Patient 09/25/2014 Instructions [...]
--- OUTSIDE RECORDS SUMMARY | 2018-11-25 12:57 | XMS REPORT | CCD ---
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 Name Role Phone PP Unavailable CCM Unavailable Summary Purpose Interface Exchange Insurance Providers Payer name Policy type / Coverage type Covered republican ID Effective Begin Date Effective End Date [facility] [id number] 2015 Unknown Family history Father Diagnosis Age [...] Retired disabled 10/24/[address]: 1719013 Former smoker quit 1993 10/24/2014 Allergies, Adverse [...] Date Stop Date Status Fill Instructions levothyroxine 25 mcg tablet RxNorm: 487630 1 Tablet(s) PO daily 06/03/2018 09/30/2018 Active levothyroxine 25 mcg tablet RxNorm: 220878 1 Tablet(s) PO daily 06/03/2018 06/02/2018 Inactive hydrocodone 10 mg-acetaminophen 325 mg tablet RxNorm: 507547 2 Tablet(s) PO Q6 PRN 05/25/2018 06/15/2018 Active hydrocodone 10 mg-acetaminophen 325 mg tablet RxNorm: 545996 2 Tablet(s) PO Q6 PRN 04/13/2018 05/04/2018 Inactive hydrocodone 10 mg-acetaminophen 325 mg tablet RxNorm: 270211 2 Tablet(s) PO Q6 PRN 03/12/2018 04/02/2018 Inactive potassium chloride ER 10 mEq tablet,extended release RxNorm: 261939 TAKE ONE TABLET BY MOUTH FOUR TIMES A WEEK NEEDED 02/24/2018 07/13/2018 Active Neurontin 800 mg tablet RxNorm: 606633 TAKE ONE TABLET BY MOUTH THREE TIMES A DAY 02/09/2018 05/09/2018 Inactive nystatin 100,000 unit/gram topical powder RxNorm: 601434 APPLY ONE GRAM TOPICALLY FOUR TIMES A DAY NEEDED 02/03/2018 02/14/2018 Inactive hydrocodone 10 mg-acetaminophen 325 mg tablet RxNorm: 579528 2 Tablet(s) PO Q6 PRN 01/26/2018 02/16/2018 Inactive Novolin 70/30 U-100 Insulin 100 unit/mL subcutaneous suspension RxNorm: 700712 INJECT 100 UNITS UNDER THE SKIN TWO TIMES A DAY 01/04/2018 05/03/2018 Inactive mupirocin 2 % topical ointment RxNorm: 619751 1 Gram(s) TOP BID to affected area 12/29/2017 No Stop Date Active Levaquin 500 mg tablet RxNorm: 820523 1 Tablet(s) PO daily 12/29/2017 01/04/2018 Inactive mupirocin 2 % topical ointment RxNorm: 044275 1 Gram(s) TOP BID to affected area 12/28/2017 12/28/2017 Inactive Levaquin 500 mg tablet RxNorm: 286082 1 Tablet(s) PO daily 12/28/2017 12/28/2017 Inactive hydrocodone 10 mg-acetaminophen 325 mg tablet RxNorm: 434907 2 Tablet(s) PO Q6 PRN 12/28/2017 01/18/2018 Inactive Novolin 70/30 U-100 Insulin 100 unit/mL subcutaneous suspension RxNorm: 799732 INJECT 100 UNITS UNDER THE SKIN TWO TIMES A DAY 11/24/2017 12/13/2017 Inactive hydrocodone 10 mg-acetaminophen 325 mg tablet RxNorm: 008826 2 Tablet(s) PO Q6 PRN 11/02/2017 11/23/2017 Inactive nystatin 100,000 unit/gram topical powder RxNorm: 217244 APPLY ONE GRAM TOPICALLY FOUR TIMES A DAY NEEDED 10/22/2017 11/02/2017 Inactive hydrocodone 10 mg-acetaminophen 325 mg tablet RxNorm: 995859 2 Tablet(s) PO Q6 PRN 09/21/2017 10/12/2017 Inactive Levaquin 500 mg tablet RxNorm: 099508 1 Tablet(s) PO daily 09/04/2017 09/03/2017 Inactive Levaquin 500 mg tablet RxNorm: 171726 1 Tablet(s) PO daily 09/04/2017 09/10/2017 Inactive Keflex 500 mg capsule RxNorm: 287842 1 Capsule(s) PO daily 08/19/2017 08/18/2017 Inactive Take probiotic while on antibiotic hydrocodone 10 mg-acetaminophen 325 mg tablet RxNorm: 558130 2 Tablet(s) PO Q6 PRN 08/19/2017 09/09/2017 Inactive Keflex 500 mg capsule RxNorm: 092906 1 Capsule(s) PO QID 08/19/2017 12/27/2017 Inactive Take probiotic while on antibiotic mupirocin 2 % topical ointment RxNorm: 291229 1 Gram(s) TOP BID to affected area 08/19/2017 12/27/2017 Inactive hydrocodone 10 mg-acetaminophen 325 mg tablet RxNorm: 823493 2 Tablet(s) PO Q6 PRN 07/20/2017 08/10/2017 Inactive hydrocodone 10 mg-acetaminophen 325 mg tablet RxNorm: 064488 2 Tablet(s) PO Q6 PRN 06/12/2017 07/03/2017 Inactive ipratropium-albuterol 0.5 mg-3 mg(2.5 mg base)/3 mL nebulization soln RxNorm: 3835893 INHALE ONE VIAL VIA NEBULIZER EVERY 4 HOURS NEEDED FOR SHORTNESS OF BREATH 06/03/2017 No Stop Date Active hydrocodone 10 mg-acetaminophen 325 mg tablet RxNorm: 979165 2 Tablet(s) PO Q6 PRN 05/13/2017 06/03/2017 Inactive Lasix 80 mg tablet RxNorm: 818377 Tablet(s) TAKE ONE TABLET BY MOUTH DAILY 05/06/2017 11/01/2017 Inactive hydrocodone 10 mg-acetaminophen 325 mg tablet RxNorm: 884042 2 Tablet(s) PO Q6 PRN 04/13/2017 05/04/2017 Inactive hydrocodone 10 mg-acetaminophen 325 mg tablet RxNorm: 118475 2 Tablet(s) PO Q6 PRN 03/02/2017 03/23/2017 Inactive potassium chloride ER 10 mEq tablet,extended release RxNorm: 409647 TAKE ONE TABLET BY MOUTH FOUR TIMES A WEEK NEEDED 02/09/2017 03/22/2017 Inactive potassium chloride ER 10 mEq tablet,extended release RxNorm: 954265 TAKE ONE TABLET BY MOUTH FOUR TIMES A WEEK NEEDED 02/09/2017 02/08/2017 Inactive Neurontin 800 mg tablet RxNorm: 340469 TAKE ONE TABLET BY MOUTH THREE TIMES A DAY 01/20/2017 05/19/2017 Inactive hydrocodone 10 mg-acetaminophen 325 mg tablet RxNorm: 159089 2 Tablet(s) PO Q6 PRN 01/12/2017 02/02/2017 Inactive Lasix 80 mg tablet RxNorm: 057031 Tablet(s) TAKE ONE TABLET BY MOUTH DAILY 01/12/2017 03/12/2017 Inactive Novolin 70/30 U-100 Insulin 100 unit/mL subcutaneous suspension RxNorm: 890869 INJECT 100 UNITS UNDER THE SKIN TWO TIMES A DAY 01/09/2017 02/17/2017 Inactive Please contact prescriber by phone/fax. 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 Rejection Gvtq=[id number] Rejection rbjtzd=[id number] FAX FAILED: No local dialtone; too many attempts to dial Lasix 80 mg tablet RxNorm: 235997 Tablet(s) TAKE ONE TABLET BY MOUTH DAILY 01/06/2017 01/11/2017 Inactive hydrocodone 10 mg-acetaminophen 325 mg tablet RxNorm: 056171 2 Tablet(s) PO Q6 PRN 11/25/2016 12/16/2016 Inactive nystatin 100,000 unit/gram topical powder RxNorm: 119359 1 Gram(s) TOP QID as needed 11/25/2016 10/21/2017 Inactive hydrocodone 10 mg-acetaminophen 325 mg tablet RxNorm: 962949 2 Tablet(s) PO Q6 PRN 10/30/2016 11/20/2016 Inactive hydrocodone 10 mg-acetaminophen 325 mg tablet RxNorm: 269047 2 Tablet(s) PO Q6 PRN 10/01/2016 10/22/2016 Inactive hydrocodone 10 mg-acetaminophen 325 mg tablet RxNorm: 872722 2 Tablet(s) PO Q6 PRN 09/01/2016 09/22/2016 Inactive Novolin 70/30 100 unit/mL subcutaneous suspension RxNorm: 260218 INJECT 100 UNITS UNDER THE SKIN TWO TIMES A DAY 08/21/2016 09/04/2016 Inactive hydrocodone 10 mg-acetaminophen 325 mg tablet RxNorm: 085447 2 Tablet(s) PO Q6 PRN 07/29/2016 08/19/2016 Inactive hydrocodone 10 mg-acetaminophen 325 mg tablet RxNorm: 722222 2 Tablet(s) PO Q6 PRN 06/30/2016 07/21/2016 Inactive Neurontin 800 mg tablet RxNorm: 244737 1 Tablet(s) PO TID 06/23/2016 12/19/2016 Inactive glyburide 5 mg tablet RxNorm: 643845 TAKE ONE TABLET BY MOUTH TWICE A DAY 06/12/2016 09/09/2016 Inactive hydrocodone 10 mg-acetaminophen 325 mg tablet RxNorm: 664020 2 Tablet(s) PO Q6 PRN 05/16/2016 06/06/2016 Inactive morphine ER 15 mg tablet,extended release RxNorm: 565385 1 Tablet(s) 15mg IR PO BID as needed 05/13/2016 06/11/2016 Inactive nystatin 100,000 unit/gram topical powder RxNorm: 832501 1 Gram(s) TOP QID as needed 05/13/2016 11/24/2016 Inactive gemfibrozil 600 mg tablet RxNorm: 502225 TAKE ONE TABLET BY MOUTH TWICE A DAY 05/05/2016 10/31/2016 Inactive hydrocodone 10 mg-acetaminophen 325 mg tablet RxNorm: 791681 2 Tablet(s) PO Q6 PRN 04/18/2016 05/09/2016 Inactive Keflex 500 mg capsule RxNorm: 494408 1 Capsule(s) PO TID 04/15/2016 06/22/2016 Inactive Keflex 500 mg capsule RxNorm: 016596 1 Capsule(s) PO TID 04/15/2016 04/14/2016 Inactive hydrocodone 10 mg-acetaminophen 325 mg tablet RxNorm: 392120 2 Tablet(s) PO Q6 PRN 03/19/2016 04/17/2016 Inactive captopril 100 mg tablet RxNorm: 210336 TAKE ONE TABLET BY MOUTH TWICE A DAY 03/03/2016 06/30/2016 Inactive gemfibrozil 600 mg tablet RxNorm: 477976 TAKE ONE TABLET BY MOUTH TWICE A DAY 03/03/2016 05/01/2016 Inactive hydrocodone 10 mg-acetaminophen 325 mg tablet RxNorm: 496540 2 Tablet(s) PO Q6 PRN 02/28/2016 03/18/2016 Inactive Cipro 500 mg tablet RxNorm: 211640 1 Tablet(s) PO BID 02/21/2016 02/27/2016 Inactive [SAVINGS FOR NON-COVERED DRUGS -- BIN:858336, PCN: [id number], Group: XXXXX, ID# [id number], Questions: . THIS IS NOT INSURANCE.] hydrocodone 10 mg-acetaminophen 325 mg tablet RxNorm: 972480 2 Tablet(s) PO Q6 PRN 02/01/2016 02/27/2016 Inactive hydrocodone 10 mg-acetaminophen 325 mg tablet RxNorm: 457891 2 Tablet(s) PO Q6 PRN 01/08/2016 01/31/2016 Inactive Lasix 80 mg tablet RxNorm: 271539 TAKE ONE TABLET BY MOUTH DAILY 12/18/2015 01/16/2016 Inactive Request already responded to by other means (e.g. phone or fax) gemfibrozil 600 mg tablet RxNorm: 100212 TAKE ONE TABLET BY MOUTH TWICE A DAY 12/18/2015 03/02/2016 Inactive Request already responded to by other means (e.g. phone or fax) glyburide 5 mg tablet RxNorm: 414169 TAKE ONE TABLET BY MOUTH TWICE A DAY 12/18/2015 01/16/2016 Inactive Request already responded to by other means (e.g. phone or fax) glyburide 5 mg tablet RxNorm: 083937 TAKE ONE TABLET BY MOUTH TWICE A DAY 12/14/2015 02/11/2016 Inactive gemfibrozil 600 mg tablet RxNorm: 551693 TAKE ONE TABLET BY MOUTH TWICE A DAY 12/14/2015 03/12/2016 Inactive potassium chloride ER 10 mEq tablet,extended release RxNorm: 219832 TAKE ONE TABLET BY MOUTH DAILY 12/14/2015 02/23/2018 Inactive potassium chloride ER 10 mEq tablet,extended release RxNorm: 133722 TAKE ONE TABLET BY MOUTH DAILY 12/14/2015 01/12/2016 Inactive Lasix 80 mg tablet RxNorm: 148210 TAKE ONE TABLET BY MOUTH DAILY 12/14/2015 02/11/2016 Inactive Neurontin 800 mg tablet RxNorm: 509244 1 Tablet(s) PO TID 12/10/2015 06/06/2016 Inactive morphine ER 15 mg tablet,extended release RxNorm: 256564 1 Tablet(s) 15mg IR PO BID as needed 12/03/2015 01/01/2016 Inactive Neurontin 800 mg tablet RxNorm: 665853 1 Tablet(s) PO TID 11/05/2015 12/09/2015 Inactive hydrocodone 10 mg-acetaminophen 325 mg tablet RxNorm: 385784 2 Tablet(s) PO Q6 PRN 10/23/2015 01/07/2016 Inactive hydrocodone 10 mg-acetaminophen 325 mg tablet RxNorm: 053269 2 Tablet(s) PO Q6 PRN 10/02/2015 10/22/2015 Inactive Neurontin 800 mg tablet RxNorm: 584723 1 Tablet(s) PO TID 09/27/2015 11/04/2015 Inactive Diflucan 150 mg tablet RxNorm: 694435 1 Tablet(s) PO daily 09/06/2015 09/05/2015 Inactive Keflex 500 mg capsule RxNorm: 767300 1 Capsule(s) PO TID 09/06/2015 12/09/2015 Inactive Diflucan 150 mg tablet RxNorm: 564371 1 Tablet(s) PO daily 09/06/2015 12/09/2015 Inactive Keflex 500 mg capsule RxNorm: 598334 1 Capsule(s) PO TID 09/06/2015 09/05/2015 Inactive Novolin 70/30 100 unit/mL subcutaneous suspension RxNorm: 555654 INJECT 100 UNITS UNDER THE SKIN TWO TIMES A DAY 08/20/2015 11/07/2015 Inactive morphine ER 15 mg tablet,extended release RxNorm: 949406 1 Tablet(s) 15mg IR PO BID as needed 08/08/2015 11/04/2015 Inactive Novolin 70/30 100 unit/mL subcutaneous suspension RxNorm: 965145 100 Unit(s) SQ BID 07/10/2015 08/08/2015 Inactive Novolin 70/30 100 unit/mL subcutaneous solution RxNorm: 245227 100 Unit(s) SQ BID 07/10/2015 07/09/2015 Inactive Mobic 15 mg tablet RxNorm: 294170 1 Tablet(s) PO daily 07/05/2015 12/31/2015 Inactive captopril 100 mg tablet RxNorm: 058905 1 Tablet(s) PO BID 07/05/2015 12/31/2015 Inactive Lopid 600 mg tablet RxNorm: 732142 1 Tablet(s) PO BID 07/05/2015 No Stop Date Active hydrocodone 10 mg-acetaminophen 325 mg tablet RxNorm: 676040 2 Tablet(s) PO Q6 PRN 07/05/2015 10/01/2015 Inactive Neurontin 800 mg tablet RxNorm: 228175 1 Tablet(s) PO TID 07/05/2015 09/26/2015 Inactive Humulin 70/30 100 unit/mL subcutaneous suspension RxNorm: 331158 100 100 Unit(s) SQ BID 07/05/2015 07/09/2015 Inactive may dispense 30 or 90 day supply Lyrica 75 mg capsule RxNorm: 751576 1 Capsule(s) PO BID 07/05/2015 07/04/2015 Inactive glyburide 5 mg tablet RxNorm: 875119 1 Tablet(s) PO BID 07/05/2015 12/13/2015 Inactive potassium chloride ER 10 mEq tablet,extended release RxNorm: 705882 1 Tablet(s) PO daily 07/05/2015 12/13/2015 Inactive Lasix 80 mg tablet RxNorm: 520339 1 Tablet(s) PO daily 07/05/2015 12/13/2015 Inactive Lyrica 75 mg capsule RxNorm: 931133 1 Capsule(s) PO BID 07/05/2015 11/04/2015 Inactive morphine ER 15 mg tablet,extended release RxNorm: 707352 1 Tablet(s) 15mg IR PO BID as needed 07/05/2015 08/03/2015 Inactive morphine 15 mg capsule RxNorm: 919019 1 Capsule(s) 15mg IR PO BID as needed 06/25/2015 07/04/2015 Inactive morphine 15 mg capsule RxNorm: 201889 1 Capsule(s) 15mg IR PO BID as needed 05/24/2015 06/22/2015 Inactive morphine 15 mg capsule RxNorm: 776093 1 Capsule(s) 15mg IR PO BID as needed 04/16/2015 05/14/2015 Inactive gemfibrozil 600 mg tablet RxNorm: 066293 1 Tablet(s) PO BID 04/11/2015 07/05/2015 Inactive Glucophage 1,000 mg tablet RxNorm: 224436 1 Tablet(s) PO BID 03/12/2015 03/05/2016 Inactive captopril 100 mg tablet RxNorm: 368777 1 Tablet(s) PO BID 03/12/2015 07/04/2015 Inactive potassium chloride ER 10 mEq tablet,extended release RxNorm: 651972 1 Tablet(s) PO daily 03/12/2015 07/04/2015 Inactive glyburide 5 mg tablet RxNorm: 466314 1 Tablet(s) PO BID 03/12/2015 07/04/2015 Inactive Mobic 15 mg tablet RxNorm: 552134 1 Tablet(s) PO daily 03/12/2015 07/04/2015 Inactive morphine 15 mg capsule RxNorm: 627324 1 Capsule(s) 15mg IR PO BID as needed 03/12/2015 04/10/2015 Inactive hydrocodone 10 mg-acetaminophen 325 mg tablet RxNorm: 192634 2 Tablet(s) PO Q6 PRN 03/12/2015 07/04/2015 Inactive Neurontin 800 mg tablet RxNorm: 021100 1 Tablet(s) PO TID 03/12/2015 06/09/2015 Inactive morphine 15 mg capsule RxNorm: 649094 1 Capsule(s) 15mg IR PO BID as needed 02/09/2015 03/10/2015 Inactive Glucophage 1,000 mg tablet RxNorm: 620759 1 Tablet(s) PO BID 01/31/2015 03/11/2015 Inactive Glucophage 1,000 mg tablet RxNorm: 658299 1 Tablet(s) PO BID 01/15/2015 01/30/2015 Inactive morphine 15 mg capsule RxNorm: 571628 1 Capsule(s) 15mg IR PO BID as needed 01/11/2015 02/08/2015 Inactive hydrocodone 10 mg-acetaminophen 325 mg tablet RxNorm: 596107 2 Tablet(s) PO Q6 PRN 01/11/2015 03/11/2015 Inactive morphine 15 mg capsule RxNorm: 702056 1 Capsule(s) 15mg IR PO BID as needed 12/13/2014 01/10/2015 Inactive morphine 15 mg capsule RxNorm: 253632 1 Capsule(s) PO BID as needed 12/08/2014 12/07/2014 Inactive morphine 15 mg capsule RxNorm: 484825 1 Capsule(s) PO BID as needed 12/08/2014 12/12/2014 Inactive hydrocodone 10 mg-acetaminophen 325 mg tablet RxNorm: 411717 2 Tablet(s) PO Q6 PRN 10/27/2014 01/10/2015 Inactive clindamycin 150 mg capsule RxNorm: 627441 1 Capsule(s) PO QID 10/24/2014 11/02/2014 Inactive hydrocodone 10 mg-acetaminophen 325 mg tablet RxNorm: 794454 1 Tablet(s) PO Q6 PRN 10/24/2014 10/26/2014 Inactive Cipro 500 mg tablet RxNorm: 734804 1 Tablet(s) PO BID 09/08/2014 09/17/2014 Inactive [SAVINGS FOR NON-COVERED DRUGS -- BIN:844048, PCN: ASPROD1, Group: XXXXX, ID# [id number], Questions: . THIS IS NOT INSURANCE.] Flagyl 500 mg tablet RxNorm: 071005 1 Tablet(s) PO TID 09/08/2014 09/17/2014 Inactive [SAVINGS FOR NON-COVERED DRUGS -- BIN:415290, PCN: ASPROD1, Group: XXXXX, ID# [id number], Questions: . THIS IS NOT INSURANCE.] Flagyl 500 mg tablet RxNorm: 087348 1 Tablet(s) PO TID 09/08/2014 09/07/2014 Inactive Cipro 500 mg tablet RxNorm: 830370 1 Tablet(s) PO BID 09/08/2014 09/07/2014 Inactive Promethazine VC-Codeine 6.25 mg-5 mg-10 mg/5 mL syrup RxNorm: 244924 to 10 Milliliter(s) PO Q6 No Start Date Active multivitamin oral RxNorm: 86052 oral No Start Date Active Fish Oil capsule RxNorm: Capsule(s) PO 1200 mg No Start Date Active melatonin 5 mg tablet RxNorm: 784577 2 Tablet(s) PO QHS No Start Date Active vitamin E 1,000 unit tablet RxNorm: 176300 oral No Start Date Active Calcium 600 + D(3) oral RxNorm: 351965 oral No Start Date Active Multiple Vitamins Daily oral RxNorm: 47115 oral No Start Date Active oxycodone 10 mg tablet RxNorm: 5333194 1 Tablet(s) PO Q6 PRN No Start Date Active Lopid 600 mg tablet RxNorm: 318085 1 Tablet(s) PO BID No Start Date 04/10/2015 Inactive vitamin E75-kpfeyin B1 intramuscular RxNorm: 46510 intramuscular No Start Date 11/04/2015 Inactive Mobic 15 mg tablet RxNorm: 965957 1 Tablet(s) PO daily No Start Date 03/11/2015 Inactive Vitamin D3 2,000 unit capsule RxNorm: 031015 1 Capsule(s) PO daily No Start Date 11/04/2015 Inactive Vitamin C 1,000 mg tablet RxNorm: 382504 1 Tablet(s) PO daily No Start Date 11/04/2015 Inactive captopril 100 mg tablet RxNorm: 189358 1 Tablet(s) PO BID No Start Date 03/11/2015 Inactive nystatin 100,000 unit/gram topical powder RxNorm: 864636 1 Gram(s) TOP QID as needed No Start Date 05/12/2016 Inactive Neurontin 800 mg tablet RxNorm: 532903 1 Tablet(s) PO TID No Start Date 03/11/2015 Inactive mupirocin 2 % topical ointment RxNorm: 709524 1 Gram(s) TOP BID to affected area No Start Date 08/18/2017 Inactive KCL 20 meq RxNorm: 1 Tablet(s) PO daily No Start Date 03/11/2015 Inactive Lasix 80 mg tablet RxNorm: 106764 1 Tablet(s) PO daily No Start Date 07/04/2015 Inactive ipratropium-albuterol 0.5 mg-3 mg(2.5 mg base)/3 mL nebulization soln RxNorm: 5282696 INHALE ONE VIAL VIA NEBULIZER EVERY 4 HOURS NEEDED FOR SHORTNESS OF BREATH No Start Date 06/02/2017 Inactive Lyrica 75 mg capsule RxNorm: 792583 1 Capsule(s) PO BID No Start Date 07/04/2015 Inactive glyburide 5 mg tablet RxNorm: 610534 1 Tablet(s) PO BID No Start Date 03/11/2015 Inactive hydrocodone 10 mg-acetaminophen 325 mg tablet RxNorm: 231763 1 Tablet(s) PO Q6 PRN No Start Date 10/23/2014 Inactive Glucophage 1,000 mg tablet RxNorm: 279499 2 Tablet(s) PO daily No Start Date 01/14/2015 Inactive Humulin 70/30 100 unit/mL subcutaneous suspension RxNorm: 780260 100 Unit(s) SQ BID No Start Date [...] Code Item Item Code Result Date %Hba1C Wiy050 % HbA1c 42300- 6 7.3 % 07/05/2015 %Hba1C Eec824 Gluc Ave 163 mg/dL 07/05/2015 Cbc With [...] 30.5 pg 07/05/2015 Cbc With Differential Ord2 [place]% 8.1 % 07/05/2015 Cbc With Differential Ord2 [...] 1.65 K/ul 07/05/2015 Cbc With Differential Ord2 [place] ABS# 0.7 K/ul 07/05/2015 Cbc With Differential Ord2 Eos ABS# 0.4 K/ul 07/05/2015 Cbc With Differential Ord2 Baso ABS# 0.0 K/ul 07/05/2015 Cbc With Differential Ord2 New Analyzer Notice Please note new ref ranges starting 05-30-2015 due to implemntation of new five part differential hematolgy analyzer. 07/05/2015 Tsh Ord6 hTSH II 1.45 uIU/mL 07/05/2015 Total Psa Ord10 PSA 0.14 ng/mL 07/05/2015 Comp Metabolic Dpz393 NA 138 mEq/L 07/05/2015 Comp Metabolic Wtm718 K 4.7 mEq/L 07/05/2015 Comp Metabolic Uct309 CL 101 mEq/L 07/05/2015 Comp Metabolic Gru242 CO2 27.0 mEq/L 07/05/2015 Comp Metabolic Wpk636 ANION GAP 15 07/05/2015 Comp Metabolic Ovv645 GLUCOSE 152 mg/dL 07/05/2015 Comp Metabolic Spx891 Creat 0.8 mg/dL 07/05/2015 Comp Metabolic Lqx789 eGFR 106 ml/min/1.73m2 07/05/2015 Comp Metabolic Oeh323 BUN 14 mg/dL 07/05/2015 Comp Metabolic Dfp937 B/C Ratio 17.7 Ratio 07/05/2015 Comp Metabolic Mrw073 CALCIUM 9.4 mg/dL 07/05/2015 Comp Metabolic Qhn128 ALK PHOS 77 U/L 07/05/2015 Comp Metabolic Xgh731 AST(SGOT) 23 U/L 07/05/2015 Comp Metabolic Wmy942 ALT(SGPT) 25 U/L 07/05/2015 Comp Metabolic Iqc118 BILI T 0.6 mg/dL 07/05/2015 Comp Metabolic Mdy954 ALBUMIN 4.0 g/dL 07/05/2015 Comp Metabolic Iir719 TPRO 6.5 g/dL 07/05/2015 Comp Metabolic Xgg859 GLOB 2.5 g/dL 07/05/2015 Comp Metabolic Pax958 A/G Ratio 1.6 Ratio 07/05/2015 Comp Metabolic Nmg424 Osmo 279 mOsmo 07/05/2015 Cbc With Differential [...] Differential Ord2 RDW 13.3 % 03/12/2015 %Hba1C Gjt732 % HbA1c 00203- 6 6.6 % 03/12/2015 %Hba1C Awj724 Gluc Ave 143 mg/dL 03/12/2015 Comp Metabolic Hnq923 NA 135 mEq/L 03/12/2015 Comp Metabolic Znh756 K 4.7 mEq/L 03/12/2015 Comp Metabolic Yqu430 CL 98 mEq/L 03/12/2015 Comp Metabolic Zeo859 CO2 27.0 mEq/L 03/12/2015 Comp Metabolic Fag951 ANION GAP 15 03/12/2015 Comp Metabolic Rgf631 GLUCOSE 232 mg/dL 03/12/2015 Comp Metabolic Fbu826 Creat 0.8 mg/dL 03/12/2015 Comp Metabolic Jsf811 eGFR 104 ml/min/1.73m2 03/12/2015 Comp Metabolic Dcj811 BUN 19 mg/dL 03/12/2015 Comp Metabolic Nfr337 B/C Ratio 23.8 Ratio 03/12/2015 Comp Metabolic Chp039 CALCIUM 9.2 mg/dL 03/12/2015 Comp Metabolic Ncv952 ALK PHOS 74 U/L 03/12/2015 Comp Metabolic Ulq656 AST(SGOT) 24 U/L 03/12/2015 Comp Metabolic Diw692 ALT(SGPT) 29 U/L 03/12/2015 Comp Metabolic Asa180 BILI T 0.4 mg/dL 03/12/2015 Comp Metabolic Phg349 ALBUMIN 4.2 g/dL 03/12/2015 Comp Metabolic Bgm900 TPRO 6.5 g/dL 03/12/2015 Comp Metabolic Ojn735 GLOB 2.3 g/dL 03/12/2015 Comp Metabolic Rtn065 A/G Ratio 1.8 Ratio 03/12/2015 Comp Metabolic Yvt590 Osmo 280 mOsmo 03/12/2015 Review of Systems [...] Codes Date URINALYSIS NONAUTO W/O SCOPE CPT-4: 27738 02/22/2016 Vital Signs Date Vital 11/05/2015 Blood [...] data Encounters Encounter Performer Location Codes Date ([id number]) 13727 EST. 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 PATIENT, LEVEL IV Diagnosis: Encounter for follow-up examination after completed treatment for conditions other than malignant neoplasm[ICD10: Z09] [facility] CPT-4: 05780 09/27/2015 ([id number]) 01553 EST. 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.2] Diagnosis: ACUTE SINUSITIS[ICD9: 461.9] [facility] CPT-4: 22585 10/24/2014 Plan of Care Planned Activity Notes Codes Status Date Appointment: Graciela Ruvalcaba WPtel: [address] [place], [place] [phone] (30 min) [facility] 01/01/2017 Appointment: Nurse Visit 02/22/2016 Patient Education: Patient Medication Summary Completed 02/22/2016 Appointment: [facility]val[facility]aba [facility] [phone] [phone] [place] (30 min) Complex 02/07/2016 App[facility]ment[facility] [phone] [facility] [place] (15 min) Moderate 01/10/2016 Visit Plan: [...] Pending 11/05/2015 Care Plan: %Hba1C LOINC : 88151-3 Pending 11/05/2015 Visit Plan: Hospital follow up [...] Completed 03/12/2015 Appointment: Florence Treviño WPtel: [facility] (30 min) Complex 01/24/2015 Visit Plan: HTN-elevated [...] time 10/24/2014 Appointment: Graciela Ruvalcaba WPtel: [phone] [place] (S[place] New Patient 10/24/2014 Patient Education: Patient Medication Summary Completed 10/24/2014 Patient Education: Hypertension Completed 10/24/2014 Appointment: Florence Treviño WPtel: [facility] [place] ([place] New Patient 09/25/2014 Instructions Comment [...]
[2018-11-25 12:58] LABS: PROTHROMBIN TIME PATIENT 13.6 SEC (12.2-14.7)
--- OUTSIDE RECORDS SUMMARY | 2018-11-25 12:58 | XMS REPORT | CCD ---
Author Author Florence Treviño Organization Florence Treviño MD, [facility] Address [address] [place] [address] Phone Care Team Providers Care Nursing Home Admissions Director Name Role Phone PP Unavailable CCM Unavailable Summary Purpose Interface Exchange Insurance Providers Payer name Policy type / Coverage type Covered democrat ID Effective Begin Date Effective End Date [facility] [id number] 2015 Unknown Family history Father Diagnosis Age [...] Retired disabled 10/24/[address]: 3333829 Former smoker quit 1993 10/24/2014 Allergies, Adverse [...] hydrocodone 10 mg-acetaminophen 325 mg tablet RxNorm: 441678 2 Tablet(s) PO Q6 PRN 05/25/2018 06/15/2018 Active hydrocodone 10 mg-acetaminophen 325 mg tablet RxNorm: 376254 2 Tablet(s) PO Q6 PRN 04/13/2018 05/04/2018 Inactive hydrocodone 10 mg-acetaminophen 325 mg tablet RxNorm: 207498 2 Tablet(s) PO Q6 PRN 03/12/2018 04/02/2018 Inactive potassium chloride ER 10 mEq tablet,extended release RxNorm: 963603 TAKE ONE TABLET BY MOUTH FOUR TIMES A WEEK NEEDED 02/24/2018 07/13/2018 Active Neurontin 800 mg tablet RxNorm: 895657 TAKE ONE TABLET BY MOUTH THREE TIMES A DAY 02/09/2018 05/09/2018 Inactive nystatin 100,000 unit/gram topical powder RxNorm: 816075 APPLY ONE GRAM TOPICALLY FOUR TIMES A DAY NEEDED 02/03/2018 02/14/2018 Inactive hydrocodone 10 mg-acetaminophen 325 mg tablet RxNorm: 824816 2 Tablet(s) PO Q6 PRN 01/26/2018 02/16/2018 Inactive Novolin 70/30 U-100 Insulin 100 unit/mL subcutaneous suspension RxNorm: 975723 INJECT 100 UNITS UNDER THE SKIN TWO TIMES A DAY 01/04/2018 05/03/2018 Inactive mupirocin 2 % topical ointment RxNorm: 505951 1 Gram(s) TOP BID to affected area 12/29/2017 No Stop Date Active Levaquin 500 mg tablet RxNorm: 870182 1 Tablet(s) PO daily 12/29/2017 01/04/2018 Inactive mupirocin 2 % topical ointment RxNorm: 303500 1 Gram(s) TOP BID to affected area 12/28/2017 12/28/2017 Inactive Levaquin 500 mg tablet RxNorm: 190224 1 Tablet(s) PO daily 12/28/2017 12/28/2017 Inactive hydrocodone 10 mg-acetaminophen 325 mg tablet RxNorm: 052319 2 Tablet(s) PO Q6 PRN 12/28/2017 01/18/2018 Inactive Novolin 70/30 U-100 Insulin 100 unit/mL subcutaneous suspension RxNorm: 129923 INJECT 100 UNITS UNDER THE SKIN TWO TIMES A DAY 11/24/2017 12/13/2017 Inactive hydrocodone 10 mg-acetaminophen 325 mg tablet RxNorm: 182779 2 Tablet(s) PO Q6 PRN 11/02/2017 11/23/2017 Inactive nystatin 100,000 unit/gram topical powder RxNorm: 835093 APPLY ONE GRAM TOPICALLY FOUR TIMES A DAY NEEDED 10/22/2017 11/02/2017 Inactive hydrocodone 10 mg-acetaminophen 325 mg tablet RxNorm: 852376 2 Tablet(s) PO Q6 PRN 09/21/2017 10/12/2017 Inactive Levaquin 500 mg tablet RxNorm: 785348 1 Tablet(s) PO daily 09/04/2017 09/03/2017 Inactive Levaquin 500 mg tablet RxNorm: 870697 1 Tablet(s) PO daily 09/04/2017 09/10/2017 Inactive Keflex 500 mg capsule RxNorm: 007414 1 Capsule(s) PO daily 08/19/2017 08/18/2017 Inactive Take probiotic while on antibiotic hydrocodone 10 mg-acetaminophen 325 mg tablet RxNorm: 263225 2 Tablet(s) PO Q6 PRN 08/19/2017 09/09/2017 Inactive Keflex 500 mg capsule RxNorm: 707296 1 Capsule(s) PO QID 08/19/2017 12/27/2017 Inactive Take probiotic while on antibiotic mupirocin 2 % topical ointment RxNorm: 462950 1 Gram(s) TOP BID to affected area 08/19/2017 12/27/2017 Inactive hydrocodone 10 mg-acetaminophen 325 mg tablet RxNorm: 240331 2 Tablet(s) PO Q6 PRN 07/20/2017 08/10/2017 Inactive hydrocodone 10 mg-acetaminophen 325 mg tablet RxNorm: 942986 2 Tablet(s) PO Q6 PRN 06/12/2017 07/03/2017 Inactive ipratropium-albuterol 0.5 mg-3 mg(2.5 mg base)/3 mL nebulization soln RxNorm: 0459396 INHALE ONE VIAL VIA NEBULIZER EVERY 4 HOURS NEEDED FOR SHORTNESS OF BREATH 06/03/2017 No Stop Date Active hydrocodone 10 mg-acetaminophen 325 mg tablet RxNorm: 951156 2 Tablet(s) PO Q6 PRN 05/13/2017 06/03/2017 Inactive Lasix 80 mg tablet RxNorm: 637626 Tablet(s) TAKE ONE TABLET BY MOUTH DAILY 05/06/2017 11/01/2017 Inactive hydrocodone 10 mg-acetaminophen 325 mg tablet RxNorm: 492674 2 Tablet(s) PO Q6 PRN 04/13/2017 05/04/2017 Inactive hydrocodone 10 mg-acetaminophen 325 mg tablet RxNorm: 709104 2 Tablet(s) PO Q6 PRN 03/02/2017 03/23/2017 Inactive potassium chloride ER 10 mEq tablet,extended release RxNorm: 944734 TAKE ONE TABLET BY MOUTH FOUR TIMES A WEEK NEEDED 02/09/2017 03/22/2017 Inactive potassium chloride ER 10 mEq tablet,extended release RxNorm: 613510 TAKE ONE TABLET BY MOUTH FOUR TIMES A WEEK NEEDED 02/09/2017 02/08/2017 Inactive Neurontin 800 mg tablet RxNorm: 384763 TAKE ONE TABLET BY MOUTH THREE TIMES A DAY 01/20/2017 05/19/2017 Inactive hydrocodone 10 mg-acetaminophen 325 mg tablet RxNorm: 286408 2 Tablet(s) PO Q6 PRN 01/12/2017 02/02/2017 Inactive Lasix 80 mg tablet RxNorm: 500423 Tablet(s) TAKE ONE TABLET BY MOUTH DAILY 01/12/2017 03/12/2017 Inactive Novolin 70/30 U-100 Insulin 100 unit/mL subcutaneous suspension RxNorm: 442976 INJECT 100 UNITS UNDER THE SKIN TWO TIMES A DAY 01/09/2017 02/17/2017 Inactive Please contact prescriber by phone/fax. 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 to Urgent Care Nurse Practitioner unable to process Rejection Traz=254 Rejection iatthi=[id number] FAX FAILED: No local dialtone; too many attempts to dial Lasix 80 mg tablet RxNorm: 013656 Tablet(s) TAKE ONE TABLET BY MOUTH DAILY 01/06/2017 01/11/2017 Inactive hydrocodone 10 mg-acetaminophen 325 mg tablet RxNorm: 184066 2 Tablet(s) PO Q6 PRN 11/25/2016 12/16/2016 Inactive nystatin 100,000 unit/gram topical powder RxNorm: 899855 1 Gram(s) TOP QID as needed 11/25/2016 10/21/2017 Inactive hydrocodone 10 mg-acetaminophen 325 mg tablet RxNorm: 453300 2 Tablet(s) PO Q6 PRN 10/30/2016 11/20/2016 Inactive hydrocodone 10 mg-acetaminophen 325 mg tablet RxNorm: 063685 2 Tablet(s) PO Q6 PRN 10/01/2016 10/22/2016 Inactive hydrocodone 10 mg-acetaminophen 325 mg tablet RxNorm: 876497 2 Tablet(s) PO Q6 PRN 09/01/2016 09/22/2016 Inactive Novolin 70/30 100 unit/mL subcutaneous suspension RxNorm: 144517 INJECT 100 UNITS UNDER THE SKIN TWO TIMES A DAY 08/21/2016 09/04/2016 Inactive hydrocodone 10 mg-acetaminophen 325 mg tablet RxNorm: 830966 2 Tablet(s) PO Q6 PRN 07/29/2016 08/19/2016 Inactive hydrocodone 10 mg-acetaminophen 325 mg tablet RxNorm: 196857 2 Tablet(s) PO Q6 PRN 06/30/2016 07/21/2016 Inactive Neurontin 800 mg tablet RxNorm: 766452 1 Tablet(s) PO TID 06/23/2016 12/19/2016 Inactive glyburide 5 mg tablet RxNorm: 458834 TAKE ONE TABLET BY MOUTH TWICE A DAY 06/12/2016 09/09/2016 Inactive hydrocodone 10 mg-acetaminophen 325 mg tablet RxNorm: 123933 2 Tablet(s) PO Q6 PRN 05/16/2016 06/06/2016 Inactive morphine ER 15 mg tablet,extended release RxNorm: 609017 1 Tablet(s) 15mg IR PO BID as needed 05/13/2016 06/11/2016 Inactive nystatin 100,000 unit/gram topical powder RxNorm: 787944 1 Gram(s) TOP QID as needed 05/13/2016 11/24/2016 Inactive gemfibrozil 600 mg tablet RxNorm: 681710 TAKE ONE TABLET BY MOUTH TWICE A DAY 05/05/2016 10/31/2016 Inactive hydrocodone 10 mg-acetaminophen 325 mg tablet RxNorm: 392102 2 Tablet(s) PO Q6 PRN 04/18/2016 05/09/2016 Inactive Keflex 500 mg capsule RxNorm: 164786 1 Capsule(s) PO TID 04/15/2016 06/22/2016 Inactive Keflex 500 mg capsule RxNorm: 819809 1 Capsule(s) PO TID 04/15/2016 04/14/2016 Inactive hydrocodone 10 mg-acetaminophen 325 mg tablet RxNorm: 095302 2 Tablet(s) PO Q6 PRN 03/19/2016 04/17/2016 Inactive captopril 100 mg tablet RxNorm: 825460 TAKE ONE TABLET BY MOUTH TWICE A DAY 03/03/2016 06/30/2016 Inactive gemfibrozil 600 mg tablet RxNorm: 924634 TAKE ONE TABLET BY MOUTH TWICE A DAY 03/03/2016 05/01/2016 Inactive hydrocodone 10 mg-acetaminophen 325 mg tablet RxNorm: 656143 2 Tablet(s) PO Q6 PRN 02/28/2016 03/18/2016 Inactive Cipro 500 mg tablet RxNorm: 784488 1 Tablet(s) PO BID 02/21/2016 02/27/2016 Inactive [SAVINGS FOR NON-COVERED DRUGS -- BIN:189504, PCN: ASPROD1, Group: XXXXX, ID# [id number], Questions: . THIS IS NOT INSURANCE.] hydrocodone 10 mg-acetaminophen 325 mg tablet RxNorm: 379143 2 Tablet(s) PO Q6 PRN 02/01/2016 02/27/2016 Inactive hydrocodone 10 mg-acetaminophen 325 mg tablet RxNorm: 536346 2 Tablet(s) PO Q6 PRN 01/08/2016 01/31/2016 Inactive Lasix 80 mg tablet RxNorm: 678103 TAKE ONE TABLET BY MOUTH DAILY 12/18/2015 01/16/2016 Inactive Request already responded to by other means (e.g. phone or fax) gemfibrozil 600 mg tablet RxNorm: 683990 TAKE ONE TABLET BY MOUTH TWICE A DAY 12/18/2015 03/02/2016 Inactive Request already responded to by other means (e.g. phone or fax) glyburide 5 mg tablet RxNorm: 415309 TAKE ONE TABLET BY MOUTH TWICE A DAY 12/18/2015 01/16/2016 Inactive Request already responded to by other means (e.g. phone or fax) glyburide 5 mg tablet RxNorm: 052938 TAKE ONE TABLET BY MOUTH TWICE A DAY 12/14/2015 02/11/2016 Inactive gemfibrozil 600 mg tablet RxNorm: 562497 TAKE ONE TABLET BY MOUTH TWICE A DAY 12/14/2015 03/12/2016 Inactive potassium chloride ER 10 mEq tablet,extended release RxNorm: 776729 TAKE ONE TABLET BY MOUTH DAILY 12/14/2015 02/23/2018 Inactive potassium chloride ER 10 mEq tablet,extended release RxNorm: 156352 TAKE ONE TABLET BY MOUTH DAILY 12/14/2015 01/12/2016 Inactive Lasix 80 mg tablet RxNorm: 664545 TAKE ONE TABLET BY MOUTH DAILY 12/14/2015 02/11/2016 Inactive Neurontin 800 mg tablet RxNorm: 536252 1 Tablet(s) PO TID 12/10/2015 06/06/2016 Inactive morphine ER 15 mg tablet,extended release RxNorm: 292489 1 Tablet(s) 15mg IR PO BID as needed 12/03/2015 01/01/2016 Inactive Neurontin 800 mg tablet RxNorm: 661746 1 Tablet(s) PO TID 11/05/2015 12/09/2015 Inactive hydrocodone 10 mg-acetaminophen 325 mg tablet RxNorm: 499572 2 Tablet(s) PO Q6 PRN 10/23/2015 01/07/2016 Inactive hydrocodone 10 mg-acetaminophen 325 mg tablet RxNorm: 827835 2 Tablet(s) PO Q6 PRN 10/02/2015 10/22/2015 Inactive Neurontin 800 mg tablet RxNorm: 098040 1 Tablet(s) PO TID 09/27/2015 11/04/2015 Inactive Diflucan 150 mg tablet RxNorm: 778088 1 Tablet(s) PO daily 09/06/2015 09/05/2015 Inactive Keflex 500 mg capsule RxNorm: 794071 1 Capsule(s) PO TID 09/06/2015 12/09/2015 Inactive Diflucan 150 mg tablet RxNorm: 967434 1 Tablet(s) PO daily 09/06/2015 12/09/2015 Inactive Keflex 500 mg capsule RxNorm: 726322 1 Capsule(s) PO TID 09/06/2015 09/05/2015 Inactive Novolin 70/30 100 unit/mL subcutaneous suspension RxNorm: 818921 INJECT 100 UNITS UNDER THE SKIN TWO TIMES A DAY 08/20/2015 11/07/2015 Inactive morphine ER 15 mg tablet,extended release RxNorm: 937158 1 Tablet(s) 15mg IR PO BID as needed 08/08/2015 11/04/2015 Inactive Novolin 70/30 100 unit/mL subcutaneous suspension RxNorm: 147303 100 Unit(s) SQ BID 07/10/2015 08/08/2015 Inactive Novolin 70/30 100 unit/mL subcutaneous solution RxNorm: 347019 100 Unit(s) SQ BID 07/10/2015 07/09/2015 Inactive Mobic 15 mg tablet RxNorm: 684465 1 Tablet(s) PO daily 07/05/2015 12/31/2015 Inactive captopril 100 mg tablet RxNorm: 206926 1 Tablet(s) PO BID 07/05/2015 12/31/2015 Inactive Lopid 600 mg tablet RxNorm: 467298 1 Tablet(s) PO BID 07/05/2015 No Stop Date Active hydrocodone 10 mg-acetaminophen 325 mg tablet RxNorm: 921572 2 Tablet(s) PO Q6 PRN 07/05/2015 10/01/2015 Inactive Neurontin 800 mg tablet RxNorm: 448642 1 Tablet(s) PO TID 07/05/2015 09/26/2015 Inactive Humulin 70/30 100 unit/mL subcutaneous suspension RxNorm: 854063 100 100 Unit(s) SQ BID 07/05/2015 07/09/2015 Inactive may dispense 30 or 90 day supply Lyrica 75 mg capsule RxNorm: 210397 1 Capsule(s) PO BID 07/05/2015 07/04/2015 Inactive glyburide 5 mg tablet RxNorm: 194234 1 Tablet(s) PO BID 07/05/2015 12/13/2015 Inactive potassium chloride ER 10 mEq tablet,extended release RxNorm: 423335 1 Tablet(s) PO daily 07/05/2015 12/13/2015 Inactive Lasix 80 mg tablet RxNorm: 388081 1 Tablet(s) PO daily 07/05/2015 12/13/2015 Inactive Lyrica 75 mg capsule RxNorm: 075346 1 Capsule(s) PO BID 07/05/2015 11/04/2015 Inactive morphine ER 15 mg tablet,extended release RxNorm: 967668 1 Tablet(s) 15mg IR PO BID as needed 07/05/2015 08/03/2015 Inactive morphine 15 mg capsule RxNorm: 431818 1 Capsule(s) 15mg IR PO BID as needed 06/25/2015 07/04/2015 Inactive morphine 15 mg capsule RxNorm: 303677 1 Capsule(s) 15mg IR PO BID as needed 05/24/2015 06/22/2015 Inactive morphine 15 mg capsule RxNorm: 177025 1 Capsule(s) 15mg IR PO BID as needed 04/16/2015 05/14/2015 Inactive gemfibrozil 600 mg tablet RxNorm: 389664 1 Tablet(s) PO BID 04/11/2015 07/05/2015 Inactive Glucophage 1,000 mg tablet RxNorm: 830508 1 Tablet(s) PO BID 03/12/2015 03/05/2016 Inactive captopril 100 mg tablet RxNorm: 191003 1 Tablet(s) PO BID 03/12/2015 07/04/2015 Inactive potassium chloride ER 10 mEq tablet,extended release RxNorm: 788475 1 Tablet(s) PO daily 03/12/2015 07/04/2015 Inactive glyburide 5 mg tablet RxNorm: 476514 1 Tablet(s) PO BID 03/12/2015 07/04/2015 Inactive Mobic 15 mg tablet RxNorm: 015350 1 Tablet(s) PO daily 03/12/2015 07/04/2015 Inactive morphine 15 mg capsule RxNorm: 687521 1 Capsule(s) 15mg IR PO BID as needed 03/12/2015 04/10/2015 Inactive hydrocodone 10 mg-acetaminophen 325 mg tablet RxNorm: 126481 2 Tablet(s) PO Q6 PRN 03/12/2015 07/04/2015 Inactive Neurontin 800 mg tablet RxNorm: 525421 1 Tablet(s) PO TID 03/12/2015 06/09/2015 Inactive morphine 15 mg capsule RxNorm: 827481 1 Capsule(s) 15mg IR PO BID as needed 02/09/2015 03/10/2015 Inactive Glucophage 1,000 mg tablet RxNorm: 441697 1 Tablet(s) PO BID 01/31/2015 03/11/2015 Inactive Glucophage 1,000 mg tablet RxNorm: 955924 1 Tablet(s) PO BID 01/15/2015 01/30/2015 Inactive morphine 15 mg capsule RxNorm: 838098 1 Capsule(s) 15mg IR PO BID as needed 01/11/2015 02/08/2015 Inactive hydrocodone 10 mg-acetaminophen 325 mg tablet RxNorm: 536461 2 Tablet(s) PO Q6 PRN 01/11/2015 03/11/2015 Inactive morphine 15 mg capsule RxNorm: 973431 1 Capsule(s) 15mg IR PO BID as needed 12/13/2014 01/10/2015 Inactive morphine 15 mg capsule RxNorm: 799634 1 Capsule(s) PO BID as needed 12/08/2014 12/07/2014 Inactive morphine 15 mg capsule RxNorm: 173076 1 Capsule(s) PO BID as needed 12/08/2014 12/12/2014 Inactive hydrocodone 10 mg-acetaminophen 325 mg tablet RxNorm: 048328 2 Tablet(s) PO Q6 PRN 10/27/2014 01/10/2015 Inactive clindamycin 150 mg capsule RxNorm: 269259 1 Capsule(s) PO QID 10/24/2014 11/02/2014 Inactive hydrocodone 10 mg-acetaminophen 325 mg tablet RxNorm: 641545 1 Tablet(s) PO Q6 PRN 10/24/2014 10/26/2014 Inactive Cipro 500 mg tablet RxNorm: 829027 1 Tablet(s) PO BID 09/08/2014 09/17/2014 Inactive [SAVINGS FOR NON-COVERED DRUGS -- BIN:256844, PCN: ASPROD1, Group: XXXXX, ID# [id number], Questions: . THIS IS NOT INSURANCE.] Flagyl 500 mg tablet RxNorm: 515636 1 Tablet(s) PO TID 09/08/2014 09/17/2014 Inactive [SAVINGS FOR NON-COVERED DRUGS -- BIN:226741, PCN: ASPROD1, Group: XXXXX, ID# [id number], Questions: . THIS IS NOT INSURANCE.] Flagyl 500 mg tablet RxNorm: 987257 1 Tablet(s) PO TID 09/08/2014 09/07/2014 Inactive Cipro 500 mg tablet RxNorm: 908880 1 Tablet(s) PO BID 09/08/2014 09/07/2014 Inactive Promethazine VC-Codeine 6.25 mg-5 mg-10 mg/5 mL syrup RxNorm: 385656 to 10 Milliliter(s) PO Q6 No Start Date Active multivitamin oral RxNorm: 24119 oral No Start Date Active Fish Oil capsule RxNorm: Capsule(s) PO 1200 mg No Start Date Active melatonin 5 mg tablet RxNorm: 024916 2 Tablet(s) PO QHS No Start Date Active vitamin E 1,000 unit tablet RxNorm: 839771 oral No Start Date Active Calcium 600 + D(3) oral RxNorm: 888526 oral No Start Date Active Multiple Vitamins Daily oral RxNorm: 89732 oral No Start Date Active oxycodone 10 mg tablet RxNorm: 5341955 1 Tablet(s) PO Q6 PRN No Start Date Active Lopid 600 mg tablet RxNorm: 936006 1 Tablet(s) PO BID No Start Date 04/10/2015 Inactive vitamin U43-yclvwey B1 intramuscular RxNorm: 12763 intramuscular No Start Date 11/04/2015 Inactive Mobic 15 mg tablet RxNorm: 567232 1 Tablet(s) PO daily No Start Date 03/11/2015 Inactive Vitamin D3 2,000 unit capsule RxNorm: 502292 1 Capsule(s) PO daily No Start Date 11/04/2015 Inactive Vitamin C 1,000 mg tablet RxNorm: 523939 1 Tablet(s) PO daily No Start Date 11/04/2015 Inactive captopril 100 mg tablet RxNorm: 224552 1 Tablet(s) PO BID No Start Date 03/11/2015 Inactive nystatin 100,000 unit/gram topical powder RxNorm: 367725 1 Gram(s) TOP QID as needed No Start Date 05/12/2016 Inactive Neurontin 800 mg tablet RxNorm: 793830 1 Tablet(s) PO TID No Start Date 03/11/2015 Inactive mupirocin 2 % topical ointment RxNorm: 778958 1 Gram(s) TOP BID to affected area No Start Date 08/18/2017 Inactive KCL 20 meq RxNorm: 1 Tablet(s) PO daily No Start Date 03/11/2015 Inactive Lasix 80 mg tablet RxNorm: 384170 1 Tablet(s) PO daily No Start Date 07/04/2015 Inactive ipratropium-albuterol 0.5 mg-3 mg(2.5 mg base)/3 mL nebulization soln RxNorm: 7988461 INHALE ONE VIAL VIA NEBULIZER EVERY 4 HOURS NEEDED FOR SHORTNESS OF BREATH No Start Date 06/02/2017 Inactive Lyrica 75 mg capsule RxNorm: 452222 1 Capsule(s) PO BID No Start Date 07/04/2015 Inactive glyburide 5 mg tablet RxNorm: 065399 1 Tablet(s) PO BID No Start Date 03/11/2015 Inactive hydrocodone 10 mg-acetaminophen 325 mg tablet RxNorm: 207100 1 Tablet(s) PO Q6 PRN No Start Date 10/23/2014 Inactive Glucophage 1,000 mg tablet RxNorm: 463868 2 Tablet(s) PO daily No Start Date 01/14/2015 Inactive Humulin 70/30 100 unit/mL subcutaneous suspension RxNorm: 356043 100 Unit(s) SQ BID No Start Date [...] Code Item Item Code Result Date %Hba1C Gzv520 % HbA1c 68796- 6 7.3 % 07/05/2015 %Hba1C Ekt262 Gluc Ave 163 mg/dL 07/05/2015 Cbc With [...] 30.5 pg 07/05/2015 Cbc With Differential Ord2 Mccreary% 8.1 % 07/05/2015 Cbc With Differential Ord2 [...] 1.65 K/ul 07/05/2015 Cbc With Differential Ord2 Mccreary ABS# 0.7 K/ul 07/05/2015 Cbc With Differential Ord2 Eos ABS# 0.4 K/ul 07/05/2015 Cbc With Differential Ord2 Baso ABS# 0.0 K/ul 07/05/2015 Cbc With Differential Ord2 New Analyzer Notice Please note new ref ranges starting 05-30-2015 due to implemntation of new five part differential hematolgy analyzer. 07/05/2015 Tsh Ord6 hTSH II 1.45 uIU/mL 07/05/2015 Total Psa Ord10 PSA 0.14 ng/mL 07/05/2015 Comp Metabolic Ned043 NA 138 mEq/L 07/05/2015 Comp Metabolic Auv192 K 4.7 mEq/L 07/05/2015 Comp Metabolic Jzc316 CL 101 mEq/L 07/05/2015 Comp Metabolic Eel870 CO2 27.0 mEq/L 07/05/2015 Comp Metabolic Ant566 ANION GAP 15 07/05/2015 Comp Metabolic Xfe487 GLUCOSE 152 mg/dL 07/05/2015 Comp Metabolic Txc504 Creat 0.8 mg/dL 07/05/2015 Comp Metabolic Wnr619 eGFR 106 ml/min/1.73m2 07/05/2015 Comp Metabolic Gwi445 BUN 14 mg/dL 07/05/2015 Comp Metabolic Fku734 B/C Ratio 17.7 Ratio 07/05/2015 Comp Metabolic Lmo551 CALCIUM 9.4 mg/dL 07/05/2015 Comp Metabolic Gqd581 ALK PHOS 77 U/L 07/05/2015 Comp Metabolic Ssx814 AST(SGOT) 23 U/L 07/05/2015 Comp Metabolic Ntp094 ALT(SGPT) 25 U/L 07/05/2015 Comp Metabolic Npv827 BILI T 0.6 mg/dL 07/05/2015 Comp Metabolic Wxr543 ALBUMIN 4.0 g/dL 07/05/2015 Comp Metabolic Sbw106 TPRO 6.5 g/dL 07/05/2015 Comp Metabolic Ixi585 GLOB 2.5 g/dL 07/05/2015 Comp Metabolic Nmw896 A/G Ratio 1.6 Ratio 07/05/2015 Comp Metabolic Tdp936 Osmo 279 mOsmo 07/05/2015 Cbc With Differential [...] Differential Ord2 RDW 13.3 % 03/12/2015 %Hba1C Qez216 % HbA1c 28276- 6 6.6 % 03/12/2015 %Hba1C Clm047 Gluc Ave 143 mg/dL 03/12/2015 Comp Metabolic Snb893 NA 135 mEq/L 03/12/2015 Comp Metabolic Wrm794 K 4.7 mEq/L 03/12/2015 Comp Metabolic Sbs851 CL 98 mEq/L 03/12/2015 Comp Metabolic Fwv397 CO2 27.0 mEq/L 03/12/2015 Comp Metabolic Gvt270 ANION GAP 15 03/12/2015 Comp Metabolic Iag536 GLUCOSE 232 mg/dL 03/12/2015 Comp Metabolic Xeb908 Creat 0.8 mg/dL 03/12/2015 Comp Metabolic Vwu011 eGFR 104 ml/min/1.73m2 03/12/2015 Comp Metabolic Aqo459 BUN 19 mg/dL 03/12/2015 Comp Metabolic Rkd511 B/C Ratio 23.8 Ratio 03/12/2015 Comp Metabolic Dpy920 CALCIUM 9.2 mg/dL 03/12/2015 Comp Metabolic Lkb505 ALK PHOS 74 U/L 03/12/2015 Comp Metabolic Hyr306 AST(SGOT) 24 U/L 03/12/2015 Comp Metabolic Yac227 ALT(SGPT) 29 U/L 03/12/2015 Comp Metabolic Nsc528 BILI T 0.4 mg/dL 03/12/2015 Comp Metabolic Shu043 ALBUMIN 4.2 g/dL 03/12/2015 Comp Metabolic Vgs920 TPRO 6.5 g/dL 03/12/2015 Comp Metabolic Fhs994 GLOB 2.3 g/dL 03/12/2015 Comp Metabolic Ynp792 A/G Ratio 1.8 Ratio 03/12/2015 Comp Metabolic Xsi351 Osmo 280 mOsmo 03/12/2015 Review of Systems [...] Codes Date URINALYSIS NONAUTO W/O SCOPE CPT-4: 66082 02/22/2016 Vital Signs Date Vital 11/05/2015 Blood [...] Directive data Encounters Encounter Performer Location Codes ([id number]) [id number] EST. PATIENT, LEVEL IV Diagnosis: Type 2 diabetes mellitus with diabetic polyneuropathy[ICD10: E11.42] Diagnosis: Essential (primary) hypertension[ICD10: I10] Diagnosis: Panniculitis, unspecified[ICD10: M79.3] Diagnosis: Bilateral primary osteoarthritis of knee[ICD10: M17.0] Diagnosis: Heart failure, unspecified[ICD10: I50.9] Graciela Treviño MD, [facility] CPT-4: 54179 11/05/2015 [id number] EST. PATIENT, LEVEL IV Diagnosis: Encounter for follow-up examination after completed treatment for conditions other than malignant neoplasm[ICD10: Z09] Ashlyn Treviño MD, [facility] CPT-4: 75775 09/27/2015 ([id number]) 79926 EST. 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.2] Diagnosis: ACUTE SINUSITIS[ICD9: 461.9] Florence Treviño MD, [facility] CPT-4: 18753 10/24/2014 Plan of Care Planned Activity Notes Codes Status Date Appointment: Graciela Ruvalcaba [facility]Ptel[facility] [address] [facility] [phone] (30 min) Complex 01/01/2017 Appointment: Nurse Visit 02/22/2016 Patient Education: Patient Medication Summary Completed 02/22/2016 Appointment: Graciela Ruvalcaba WPtel: [address] [facility] [place] [phone] (30 min) Complex 02/07/2016 [facility]ment: [facility] [place] (15 min) Moderate 01/10/2016 [...] Pending 11/05/2015 Care Plan: %Hba1C LOINC : 26712-9 Pending 11/05/2015 Visit Plan: Hospital follow up [...] Completed 03/12/2015 Appointment: Florence Treviño WPtel: [facility] [...] this time 10/24/2014 Appointment: Graciela Ruvalcaba WPtel: [address] [place], [place] [phone] [place] ([place]) New Patient 10/24/2014 Patient Education: Patient Medication Summary Completed 10/24/2014 Patient Education: Hypertension Completed 10/24/2014 Appointment: Florence Treviño WPtel: [address] [place], [place] [phone] [place] ([place]) New Patient 09/25/2014 Instructions Comment [...]
--- OUTSIDE RECORDS SUMMARY | 2018-11-25 13:00 | XMS REPORT | CCD ---
Author Author Florence Treviño Organization Florence Treviño MD, [facility] Address [address] [place] [address] Phone Care Team Providers Care Business Process Analyst Name Role Phone PP Unavailable CCM Unavailable Summary Purpose Interface Exchange Insurance Providers Payer name Policy type / Coverage type Covered alliance party ID Effective Begin Date Effective End Date [facility] [id number] 2015 Unknown Family history Father Diagnosis Age [...] Retired disabled 10/24/[address]: 4257660 Former smoker quit 1993 10/24/2014 Allergies, Adverse [...] hydrocodone 10 mg-acetaminophen 325 mg tablet RxNorm: 693895 2 Tablet(s) PO Q6 PRN 04/13/2018 05/04/2018 Active hydrocodone 10 mg-acetaminophen 325 mg tablet RxNorm: 323687 2 Tablet(s) PO Q6 PRN 03/12/2018 04/02/2018 Inactive potassium chloride ER 10 mEq tablet,extended release RxNorm: 585537 TAKE ONE TABLET BY MOUTH FOUR TIMES A WEEK NEEDED 02/24/2018 07/13/2018 Active Neurontin 800 mg tablet RxNorm: 298538 TAKE ONE TABLET BY MOUTH THREE TIMES A DAY 02/09/2018 05/09/2018 Active nystatin 100,000 unit/gram topical powder RxNorm: 629096 APPLY ONE GRAM TOPICALLY FOUR TIMES A DAY NEEDED 02/03/2018 02/14/2018 Inactive hydrocodone 10 mg-acetaminophen 325 mg tablet RxNorm: 740552 2 Tablet(s) PO Q6 PRN 01/26/2018 02/16/2018 Inactive Novolin 70/30 U-100 Insulin 100 unit/mL subcutaneous suspension RxNorm: 139271 INJECT 100 UNITS UNDER THE SKIN TWO TIMES A DAY 01/04/2018 05/03/2018 Active mupirocin 2 % topical ointment RxNorm: 925545 1 Gram(s) TOP BID to affected area 12/29/2017 No Stop Date Active Levaquin 500 mg tablet RxNorm: 057167 1 Tablet(s) PO daily 12/29/2017 01/04/2018 Inactive mupirocin 2 % topical ointment RxNorm: 685197 1 Gram(s) TOP BID to affected area 12/28/2017 12/28/2017 Inactive Levaquin 500 mg tablet RxNorm: 142347 1 Tablet(s) PO daily 12/28/2017 12/28/2017 Inactive hydrocodone 10 mg-acetaminophen 325 mg tablet RxNorm: 526941 2 Tablet(s) PO Q6 PRN 12/28/2017 01/18/2018 Inactive Novolin 70/30 U-100 Insulin 100 unit/mL subcutaneous suspension RxNorm: 185598 INJECT 100 UNITS UNDER THE SKIN TWO TIMES A DAY 11/24/2017 12/13/2017 Inactive hydrocodone 10 mg-acetaminophen 325 mg tablet RxNorm: 153121 2 Tablet(s) PO Q6 PRN 11/02/2017 11/23/2017 Inactive nystatin 100,000 unit/gram topical powder RxNorm: 554248 APPLY ONE GRAM TOPICALLY FOUR TIMES A DAY NEEDED 10/22/2017 11/02/2017 Inactive hydrocodone 10 mg-acetaminophen 325 mg tablet RxNorm: 163240 2 Tablet(s) PO Q6 PRN 09/21/2017 10/12/2017 Inactive Levaquin 500 mg tablet RxNorm: 081947 1 Tablet(s) PO daily 09/04/2017 09/03/2017 Inactive Levaquin 500 mg tablet RxNorm: 661909 1 Tablet(s) PO daily 09/04/2017 09/10/2017 Inactive Keflex 500 mg capsule RxNorm: 530029 1 Capsule(s) PO daily 08/19/2017 08/18/2017 Inactive Take probiotic while on antibiotic hydrocodone 10 mg-acetaminophen 325 mg tablet RxNorm: 475509 2 Tablet(s) PO Q6 PRN 08/19/2017 09/09/2017 Inactive Keflex 500 mg capsule RxNorm: 893694 1 Capsule(s) PO QID 08/19/2017 12/27/2017 Inactive Take probiotic while on antibiotic mupirocin 2 % topical ointment RxNorm: 258600 1 Gram(s) TOP BID to affected area 08/19/2017 12/27/2017 Inactive hydrocodone 10 mg-acetaminophen 325 mg tablet RxNorm: 904461 2 Tablet(s) PO Q6 PRN 07/20/2017 08/10/2017 Inactive hydrocodone 10 mg-acetaminophen 325 mg tablet RxNorm: 478203 2 Tablet(s) PO Q6 PRN 06/12/2017 07/03/2017 Inactive ipratropium-albuterol 0.5 mg-3 mg(2.5 mg base)/3 mL nebulization soln RxNorm: 6950120 INHALE ONE VIAL VIA NEBULIZER EVERY 4 HOURS NEEDED FOR SHORTNESS OF BREATH 06/03/2017 No Stop Date Active hydrocodone 10 mg-acetaminophen 325 mg tablet RxNorm: 004014 2 Tablet(s) PO Q6 PRN 05/13/2017 06/03/2017 Inactive Lasix 80 mg tablet RxNorm: 772156 Tablet(s) TAKE ONE TABLET BY MOUTH DAILY 05/06/2017 11/01/2017 Inactive hydrocodone 10 mg-acetaminophen 325 mg tablet RxNorm: 661173 2 Tablet(s) PO Q6 PRN 04/13/2017 05/04/2017 Inactive hydrocodone 10 mg-acetaminophen 325 mg tablet RxNorm: 025046 2 Tablet(s) PO Q6 PRN 03/02/2017 03/23/2017 Inactive potassium chloride ER 10 mEq tablet,extended release RxNorm: 189262 TAKE ONE TABLET BY MOUTH FOUR TIMES A WEEK NEEDED 02/09/2017 03/22/2017 Inactive potassium chloride ER 10 mEq tablet,extended release RxNorm: 930023 TAKE ONE TABLET BY MOUTH FOUR TIMES A WEEK NEEDED 02/09/2017 02/08/2017 Inactive Neurontin 800 mg tablet RxNorm: 750940 TAKE ONE TABLET BY MOUTH THREE TIMES A DAY 01/20/2017 05/19/2017 Inactive hydrocodone 10 mg-acetaminophen 325 mg tablet RxNorm: 560431 2 Tablet(s) PO Q6 PRN 01/12/2017 02/02/2017 Inactive Lasix 80 mg tablet RxNorm: 626917 Tablet(s) TAKE ONE TABLET BY MOUTH DAILY 01/12/2017 03/12/2017 Inactive Novolin 70/30 U-100 Insulin 100 unit/mL subcutaneous suspension RxNorm: 090224 INJECT 100 UNITS UNDER THE SKIN TWO TIMES A DAY 01/09/2017 02/17/2017 Inactive Please contact prescriber by phone/fax. 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 Rejection Fhzn=[id number] Rejection rvywoz=[id number] FAX FAILED: No local dialtone; too many attempts to dial Lasix 80 mg tablet RxNorm: 307755 Tablet(s) TAKE ONE TABLET BY MOUTH DAILY 01/06/2017 01/11/2017 Inactive hydrocodone 10 mg-acetaminophen 325 mg tablet RxNorm: 495271 2 Tablet(s) PO Q6 PRN 11/25/2016 12/16/2016 Inactive nystatin 100,000 unit/gram topical powder RxNorm: 775919 1 Gram(s) TOP QID as needed 11/25/2016 10/21/2017 Inactive hydrocodone 10 mg-acetaminophen 325 mg tablet RxNorm: 470602 2 Tablet(s) PO Q6 PRN 10/30/2016 11/20/2016 Inactive hydrocodone 10 mg-acetaminophen 325 mg tablet RxNorm: 324835 2 Tablet(s) PO Q6 PRN 10/01/2016 10/22/2016 Inactive hydrocodone 10 mg-acetaminophen 325 mg tablet RxNorm: 403898 2 Tablet(s) PO Q6 PRN 09/01/2016 09/22/2016 Inactive Novolin 70/30 100 unit/mL subcutaneous suspension RxNorm: 369246 INJECT 100 UNITS UNDER THE SKIN TWO TIMES A DAY 08/21/2016 09/04/2016 Inactive hydrocodone 10 mg-acetaminophen 325 mg tablet RxNorm: 092584 2 Tablet(s) PO Q6 PRN 07/29/2016 08/19/2016 Inactive hydrocodone 10 mg-acetaminophen 325 mg tablet RxNorm: 970273 2 Tablet(s) PO Q6 PRN 06/30/2016 07/21/2016 Inactive Neurontin 800 mg tablet RxNorm: 080999 1 Tablet(s) PO TID 06/23/2016 12/19/2016 Inactive glyburide 5 mg tablet RxNorm: 220537 TAKE ONE TABLET BY MOUTH TWICE A DAY 06/12/2016 09/09/2016 Inactive hydrocodone 10 mg-acetaminophen 325 mg tablet RxNorm: 856212 2 Tablet(s) PO Q6 PRN 05/16/2016 06/06/2016 Inactive morphine ER 15 mg tablet,extended release RxNorm: 229078 1 Tablet(s) 15mg IR PO BID as needed 05/13/2016 06/11/2016 Inactive nystatin 100,000 unit/gram topical powder RxNorm: 075034 1 Gram(s) TOP QID as needed 05/13/2016 11/24/2016 Inactive gemfibrozil 600 mg tablet RxNorm: 142184 TAKE ONE TABLET BY MOUTH TWICE A DAY 05/05/2016 10/31/2016 Inactive hydrocodone 10 mg-acetaminophen 325 mg tablet RxNorm: 488610 2 Tablet(s) PO Q6 PRN 04/18/2016 05/09/2016 Inactive Keflex 500 mg capsule RxNorm: 751967 1 Capsule(s) PO TID 04/15/2016 06/22/2016 Inactive Keflex 500 mg capsule RxNorm: 564130 1 Capsule(s) PO TID 04/15/2016 04/14/2016 Inactive hydrocodone 10 mg-acetaminophen 325 mg tablet RxNorm: 294346 2 Tablet(s) PO Q6 PRN 03/19/2016 04/17/2016 Inactive captopril 100 mg tablet RxNorm: 205710 TAKE ONE TABLET BY MOUTH TWICE A DAY 03/03/2016 06/30/2016 Inactive gemfibrozil 600 mg tablet RxNorm: 182933 TAKE ONE TABLET BY MOUTH TWICE A DAY 03/03/2016 05/01/2016 Inactive hydrocodone 10 mg-acetaminophen 325 mg tablet RxNorm: 671236 2 Tablet(s) PO Q6 PRN 02/28/2016 03/18/2016 Inactive Cipro 500 mg tablet RxNorm: 399571 1 Tablet(s) PO BID 02/21/2016 02/27/2016 Inactive [SAVINGS FOR NON-COVERED DRUGS -- BIN:430630, PCN: [id number], Group: XXXXX, ID# [id number], Questions: . THIS IS NOT INSURANCE.] hydrocodone 10 mg-acetaminophen 325 mg tablet RxNorm: 440141 2 Tablet(s) PO Q6 PRN 02/01/2016 02/27/2016 Inactive hydrocodone 10 mg-acetaminophen 325 mg tablet RxNorm: 259063 2 Tablet(s) PO Q6 PRN 01/08/2016 01/31/2016 Inactive Lasix 80 mg tablet RxNorm: 927146 TAKE ONE TABLET BY MOUTH DAILY 12/18/2015 01/16/2016 Inactive Request already responded to by other means (e.g. phone or fax) gemfibrozil 600 mg tablet RxNorm: 022737 TAKE ONE TABLET BY MOUTH TWICE A DAY 12/18/2015 03/02/2016 Inactive Request already responded to by other means (e.g. phone or fax) glyburide 5 mg tablet RxNorm: 608965 TAKE ONE TABLET BY MOUTH TWICE A DAY 12/18/2015 01/16/2016 Inactive Request already responded to by other means (e.g. phone or fax) glyburide 5 mg tablet RxNorm: 636730 TAKE ONE TABLET BY MOUTH TWICE A DAY 12/14/2015 02/11/2016 Inactive gemfibrozil 600 mg tablet RxNorm: 749974 TAKE ONE TABLET BY MOUTH TWICE A DAY 12/14/2015 03/12/2016 Inactive potassium chloride ER 10 mEq tablet,extended release RxNorm: 387127 TAKE ONE TABLET BY MOUTH DAILY 12/14/2015 02/23/2018 Inactive potassium chloride ER 10 mEq tablet,extended release RxNorm: 350450 TAKE ONE TABLET BY MOUTH DAILY 12/14/2015 01/12/2016 Inactive Lasix 80 mg tablet RxNorm: 605746 TAKE ONE TABLET BY MOUTH DAILY 12/14/2015 02/11/2016 Inactive Neurontin 800 mg tablet RxNorm: 181979 1 Tablet(s) PO TID 12/10/2015 06/06/2016 Inactive morphine ER 15 mg tablet,extended release RxNorm: 259472 1 Tablet(s) 15mg IR PO BID as needed 12/03/2015 01/01/2016 Inactive Neurontin 800 mg tablet RxNorm: 704130 1 Tablet(s) PO TID 11/05/2015 12/09/2015 Inactive hydrocodone 10 mg-acetaminophen 325 mg tablet RxNorm: 548930 2 Tablet(s) PO Q6 PRN 10/23/2015 01/07/2016 Inactive hydrocodone 10 mg-acetaminophen 325 mg tablet RxNorm: 230385 2 Tablet(s) PO Q6 PRN 10/02/2015 10/22/2015 Inactive Neurontin 800 mg tablet RxNorm: 830732 1 Tablet(s) PO TID 09/27/2015 11/04/2015 Inactive Diflucan 150 mg tablet RxNorm: 091580 1 Tablet(s) PO daily 09/06/2015 09/05/2015 Inactive Keflex 500 mg capsule RxNorm: 120586 1 Capsule(s) PO TID 09/06/2015 12/09/2015 Inactive Diflucan 150 mg tablet RxNorm: 991239 1 Tablet(s) PO daily 09/06/2015 12/09/2015 Inactive Keflex 500 mg capsule RxNorm: 337270 1 Capsule(s) PO TID 09/06/2015 09/05/2015 Inactive Novolin 70/30 100 unit/mL subcutaneous suspension RxNorm: 885802 INJECT 100 UNITS UNDER THE SKIN TWO TIMES A DAY 08/20/2015 11/07/2015 Inactive morphine ER 15 mg tablet,extended release RxNorm: 415680 1 Tablet(s) 15mg IR PO BID as needed 08/08/2015 11/04/2015 Inactive Novolin 70/30 100 unit/mL subcutaneous suspension RxNorm: 619093 100 Unit(s) SQ BID 07/10/2015 08/08/2015 Inactive Novolin 70/30 100 unit/mL subcutaneous solution RxNorm: 883594 100 Unit(s) SQ BID 07/10/2015 07/09/2015 Inactive Mobic 15 mg tablet RxNorm: 551930 1 Tablet(s) PO daily 07/05/2015 12/31/2015 Inactive captopril 100 mg tablet RxNorm: 313152 1 Tablet(s) PO BID 07/05/2015 12/31/2015 Inactive Lopid 600 mg tablet RxNorm: 448565 1 Tablet(s) PO BID 07/05/2015 No Stop Date Active hydrocodone 10 mg-acetaminophen 325 mg tablet RxNorm: 771884 2 Tablet(s) PO Q6 PRN 07/05/2015 10/01/2015 Inactive Neurontin 800 mg tablet RxNorm: 392020 1 Tablet(s) PO TID 07/05/2015 09/26/2015 Inactive Humulin 70/30 100 unit/mL subcutaneous suspension RxNorm: 423763 100 100 Unit(s) SQ BID 07/05/2015 07/09/2015 Inactive may dispense 30 or 90 day supply Lyrica 75 mg capsule RxNorm: 211882 1 Capsule(s) PO BID 07/05/2015 07/04/2015 Inactive glyburide 5 mg tablet RxNorm: 909353 1 Tablet(s) PO BID 07/05/2015 12/13/2015 Inactive potassium chloride ER 10 mEq tablet,extended release RxNorm: 906810 1 Tablet(s) PO daily 07/05/2015 12/13/2015 Inactive Lasix 80 mg tablet RxNorm: 833162 1 Tablet(s) PO daily 07/05/2015 12/13/2015 Inactive Lyrica 75 mg capsule RxNorm: 946325 1 Capsule(s) PO BID 07/05/2015 11/04/2015 Inactive morphine ER 15 mg tablet,extended release RxNorm: 616676 1 Tablet(s) 15mg IR PO BID as needed 07/05/2015 08/03/2015 Inactive morphine 15 mg capsule RxNorm: 526581 1 Capsule(s) 15mg IR PO BID as needed 06/25/2015 07/04/2015 Inactive morphine 15 mg capsule RxNorm: 204855 1 Capsule(s) 15mg IR PO BID as needed 05/24/2015 06/22/2015 Inactive morphine 15 mg capsule RxNorm: 789888 1 Capsule(s) 15mg IR PO BID as needed 04/16/2015 05/14/2015 Inactive gemfibrozil 600 mg tablet RxNorm: 379409 1 Tablet(s) PO BID 04/11/2015 07/05/2015 Inactive Glucophage 1,000 mg tablet RxNorm: 845057 1 Tablet(s) PO BID 03/12/2015 03/05/2016 Inactive captopril 100 mg tablet RxNorm: 889882 1 Tablet(s) PO BID 03/12/2015 07/04/2015 Inactive potassium chloride ER 10 mEq tablet,extended release RxNorm: 334490 1 Tablet(s) PO daily 03/12/2015 07/04/2015 Inactive glyburide 5 mg tablet RxNorm: 632345 1 Tablet(s) PO BID 03/12/2015 07/04/2015 Inactive Mobic 15 mg tablet RxNorm: 511468 1 Tablet(s) PO daily 03/12/2015 07/04/2015 Inactive morphine 15 mg capsule RxNorm: 836306 1 Capsule(s) 15mg IR PO BID as needed 03/12/2015 04/10/2015 Inactive hydrocodone 10 mg-acetaminophen 325 mg tablet RxNorm: 535268 2 Tablet(s) PO Q6 PRN 03/12/2015 07/04/2015 Inactive Neurontin 800 mg tablet RxNorm: 772730 1 Tablet(s) PO TID 03/12/2015 06/09/2015 Inactive morphine 15 mg capsule RxNorm: 435043 1 Capsule(s) 15mg IR PO BID as needed 02/09/2015 03/10/2015 Inactive Glucophage 1,000 mg tablet RxNorm: 793818 1 Tablet(s) PO BID 01/31/2015 03/11/2015 Inactive Glucophage 1,000 mg tablet RxNorm: 504917 1 Tablet(s) PO BID 01/15/2015 01/30/2015 Inactive morphine 15 mg capsule RxNorm: 292470 1 Capsule(s) 15mg IR PO BID as needed 01/11/2015 02/08/2015 Inactive hydrocodone 10 mg-acetaminophen 325 mg tablet RxNorm: 695032 2 Tablet(s) PO Q6 PRN 01/11/2015 03/11/2015 Inactive morphine 15 mg capsule RxNorm: 355259 1 Capsule(s) 15mg IR PO BID as needed 12/13/2014 01/10/2015 Inactive morphine 15 mg capsule RxNorm: 766137 1 Capsule(s) PO BID as needed 12/08/2014 12/07/2014 Inactive morphine 15 mg capsule RxNorm: 371604 1 Capsule(s) PO BID as needed 12/08/2014 12/12/2014 Inactive hydrocodone 10 mg-acetaminophen 325 mg tablet RxNorm: 595546 2 Tablet(s) PO Q6 PRN 10/27/2014 01/10/2015 Inactive clindamycin 150 mg capsule RxNorm: 079529 1 Capsule(s) PO QID 10/24/2014 11/02/2014 Inactive hydrocodone 10 mg-acetaminophen 325 mg tablet RxNorm: 474008 1 Tablet(s) PO Q6 PRN 10/24/2014 10/26/2014 Inactive Cipro 500 mg tablet RxNorm: 522961 1 Tablet(s) PO BID 09/08/2014 09/17/2014 Inactive [SAVINGS FOR NON-COVERED DRUGS -- BIN:517897, PCN: ASPROD1, Group: XXXXX, ID# [id number], Questions: . THIS IS NOT INSURANCE.] Flagyl 500 mg tablet RxNorm: 084221 1 Tablet(s) PO TID 09/08/2014 09/17/2014 Inactive [SAVINGS FOR NON-COVERED DRUGS -- BIN:276561, PCN: ASPROD1, Group: XXXXX, ID# [id number], Questions: . THIS IS NOT INSURANCE.] Flagyl 500 mg tablet RxNorm: 450032 1 Tablet(s) PO TID 09/08/2014 09/07/2014 Inactive Cipro 500 mg tablet RxNorm: 487955 1 Tablet(s) PO BID 09/08/2014 09/07/2014 Inactive Promethazine VC-Codeine 6.25 mg-5 mg-10 mg/5 mL syrup RxNorm: 707481 to 10 Milliliter(s) PO Q6 No Start Date Active multivitamin oral RxNorm: 26257 oral No Start Date Active Fish Oil capsule RxNorm: Capsule(s) PO 1200 mg No Start Date Active melatonin 5 mg tablet RxNorm: 613951 2 Tablet(s) PO QHS No Start Date Active vitamin E 1,000 unit tablet RxNorm: 511501 oral No Start Date Active Calcium 600 + D(3) oral RxNorm: 818160 oral No Start Date Active Multiple Vitamins Daily oral RxNorm: 87478 oral No Start Date Active oxycodone 10 mg tablet RxNorm: 3162076 1 Tablet(s) PO Q6 PRN No Start Date Active Lopid 600 mg tablet RxNorm: 094193 1 Tablet(s) PO BID No Start Date 04/10/2015 Inactive vitamin C73-hthyeem B1 intramuscular RxNorm: 32113 intramuscular No Start Date 11/04/2015 Inactive Mobic 15 mg tablet RxNorm: 563966 1 Tablet(s) PO daily No Start Date 03/11/2015 Inactive Vitamin D3 2,000 unit capsule RxNorm: 907048 1 Capsule(s) PO daily No Start Date 11/04/2015 Inactive Vitamin C 1,000 mg tablet RxNorm: 496814 1 Tablet(s) PO daily No Start Date 11/04/2015 Inactive captopril 100 mg tablet RxNorm: 623738 1 Tablet(s) PO BID No Start Date 03/11/2015 Inactive nystatin 100,000 unit/gram topical powder RxNorm: 868701 1 Gram(s) TOP QID as needed No Start Date 05/12/2016 Inactive Neurontin 800 mg tablet RxNorm: 034589 1 Tablet(s) PO TID No Start Date 03/11/2015 Inactive mupirocin 2 % topical ointment RxNorm: 105870 1 Gram(s) TOP BID to affected area No Start Date 08/18/2017 Inactive KCL 20 meq RxNorm: 1 Tablet(s) PO daily No Start Date 03/11/2015 Inactive Lasix 80 mg tablet RxNorm: 740282 1 Tablet(s) PO daily No Start Date 07/04/2015 Inactive ipratropium-albuterol 0.5 mg-3 mg(2.5 mg base)/3 mL nebulization soln RxNorm: 4681338 INHALE ONE VIAL VIA NEBULIZER EVERY 4 HOURS NEEDED FOR SHORTNESS OF BREATH No Start Date 06/02/2017 Inactive Lyrica 75 mg capsule RxNorm: 397915 1 Capsule(s) PO BID No Start Date 07/04/2015 Inactive glyburide 5 mg tablet RxNorm: 815957 1 Tablet(s) PO BID No Start Date 03/11/2015 Inactive hydrocodone 10 mg-acetaminophen 325 mg tablet RxNorm: 085915 1 Tablet(s) PO Q6 PRN No Start Date 10/23/2014 Inactive Glucophage 1,000 mg tablet RxNorm: 734723 2 Tablet(s) PO daily No Start Date 01/14/2015 Inactive Humulin 70/30 100 unit/mL subcutaneous suspension RxNorm: 012890 100 Unit(s) SQ BID No Start Date [...] Code Item Item Code Result Date %Hba1C Esl030 % HbA1c 07295- 6 7.3 % 07/05/2015 %Hba1C Bjz991 Gluc Ave 163 mg/dL 07/05/2015 Cbc With [...] 30.5 pg 07/05/2015 Cbc With Differential Ord2 [place]% 8.1 % 07/05/2015 Cbc With Differential Ord2 [...] 1.65 K/ul 07/05/2015 Cbc With Differential Ord2 [place] ABS# 0.7 K/ul 07/05/2015 Cbc With Differential Ord2 Eos ABS# 0.4 K/ul 07/05/2015 Cbc With Differential Ord2 Baso ABS# 0.0 K/ul 07/05/2015 Cbc With Differential Ord2 New Analyzer Notice Please note new ref ranges starting 05-30-2015 due to implemntation of new five part differential hematolgy analyzer. 07/05/2015 Tsh Ord6 hTSH II 1.45 uIU/mL 07/05/2015 Total Psa Ord10 PSA 0.14 ng/mL 07/05/2015 Comp Metabolic Hyl323 NA 138 mEq/L 07/05/2015 Comp Metabolic Ikd716 K 4.7 mEq/L 07/05/2015 Comp Metabolic Eda756 CL 101 mEq/L 07/05/2015 Comp Metabolic Ooo883 CO2 27.0 mEq/L 07/05/2015 Comp Metabolic Vtp668 ANION GAP 15 07/05/2015 Comp Metabolic Lke050 GLUCOSE 152 mg/dL 07/05/2015 Comp Metabolic Del073 Creat 0.8 mg/dL 07/05/2015 Comp Metabolic Zgn786 eGFR 106 ml/min/1.73m2 07/05/2015 Comp Metabolic Jym661 BUN 14 mg/dL 07/05/2015 Comp Metabolic Xno008 B/C Ratio 17.7 Ratio 07/05/2015 Comp Metabolic Wsl433 CALCIUM 9.4 mg/dL 07/05/2015 Comp Metabolic Fpn945 ALK PHOS 77 U/L 07/05/2015 Comp Metabolic Daa617 AST(SGOT) 23 U/L 07/05/2015 Comp Metabolic Znp643 ALT(SGPT) 25 U/L 07/05/2015 Comp Metabolic Ges142 BILI T 0.6 mg/dL 07/05/2015 Comp Metabolic Nuq682 ALBUMIN 4.0 g/dL 07/05/2015 Comp Metabolic Tzd247 TPRO 6.5 g/dL 07/05/2015 Comp Metabolic Tqo094 GLOB 2.5 g/dL 07/05/2015 Comp Metabolic Rgo450 A/G Ratio 1.6 Ratio 07/05/2015 Comp Metabolic Swv887 Osmo 279 mOsmo 07/05/2015 Cbc With Differential [...] Differential Ord2 RDW 13.3 % 03/12/2015 %Hba1C Fmm946 % HbA1c 09581- 6 6.6 % 03/12/2015 %Hba1C Zzw716 Gluc Ave 143 mg/dL 03/12/2015 Comp Metabolic Iqw080 NA 135 mEq/L 03/12/2015 Comp Metabolic Udn307 K 4.7 mEq/L 03/12/2015 Comp Metabolic Jlr030 CL 98 mEq/L 03/12/2015 Comp Metabolic Lmr669 CO2 27.0 mEq/L 03/12/2015 Comp Metabolic Mmu447 ANION GAP 15 03/12/2015 Comp Metabolic Fjz431 GLUCOSE 232 mg/dL 03/12/2015 Comp Metabolic Hbl608 Creat 0.8 mg/dL 03/12/2015 Comp Metabolic Wus291 eGFR 104 ml/min/1.73m2 03/12/2015 Comp Metabolic Bmb415 BUN 19 mg/dL 03/12/2015 Comp Metabolic Pbc703 B/C Ratio 23.8 Ratio 03/12/2015 Comp Metabolic Ukk922 CALCIUM 9.2 mg/dL 03/12/2015 Comp Metabolic Gxw315 ALK PHOS 74 U/L 03/12/2015 Comp Metabolic Pqw152 AST(SGOT) 24 U/L 03/12/2015 Comp Metabolic Qlk387 ALT(SGPT) 29 U/L 03/12/2015 Comp Metabolic Ooe949 BILI T 0.4 mg/dL 03/12/2015 Comp Metabolic Gxx861 ALBUMIN 4.2 g/dL 03/12/2015 Comp Metabolic Rnn044 TPRO 6.5 g/dL 03/12/2015 Comp Metabolic Gua145 GLOB 2.3 g/dL 03/12/2015 Comp Metabolic Xea702 A/G Ratio 1.8 Ratio 03/12/2015 Comp Metabolic Ghs317 Osmo 280 mOsmo 03/12/2015 Review of Systems [...] Codes Date URINALYSIS NONAUTO W/O SCOPE CPT-4: 01440 02/22/2016 Vital Signs Date Vital 11/05/2015 Blood [...] data Encounters Encounter Performer Location Codes Date ([id number]) [id number] EST. PATIENT, LEVEL IV Diagnosis: Type 2 diabetes mellitus with diabetic polyneuropathy[ICD10: E11.42] Diagnosis: Essential (primary) hypertension[ICD10: I10] Diagnosis: Panniculitis, unspecified[ICD10: M79.3] Diagnosis: Bilateral primary osteoarthritis of knee[ICD10: M17.0] Diagnosis: Heart failure, unspecified[ICD10: I50.9] Graciela Treviño MD, [facility] CPT-4: 68856 11/05/2015 00040 EST. PATIENT, LEVEL IV Diagnosis: Encounter for follow-up examination after completed treatment for conditions other than malignant neoplasm[ICD10: Z09] Ashlyn Treviño MD, [facility] CPT-4: 68137 09/27/2015 ([id number]) 48072 EST. 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: E11.42] Graciela Treviño MD, [facility] CPT-4: 52692 03/12/2015 ([id number]) OFFICE VISIT, NEW - LEVEL 4 Diagnosis: ESSENTIAL HYPERTENSION[ICD9: 401.9] Diagnosis: Osteoarthritis of knees, bilateral[ICD9: 715.96] Diagnosis: Diabetes mellitus[ICD9: 250.00] Diagnosis: Double vision[ICD9: 368.2] Diagnosis: ACUTE SINUSITIS[ICD9: 461.9] Florence Treviño MD, [facility] CPT-4: 03402 10/24/2014 Plan of Care Planned Activity Notes Codes Status Date Appointment: Graciela Ruvalcaba WPtel: [address] [place], [place] [phone] (30 min) Complex 01/01/2017 Appointment: Nurse Visit 02/22/2016 Patient Education: Patient Medication Summary Completed 02/22/2016 Appointment: Graciela Ruvalcaba WPtel: [address] [place], [place] [phone] (30 min) Complex 02/07/2016 Appointment: Florence Treviño WPtel: [address] [place], [place] [phone] (15 min) Moderate 01/10/2016 Visit Plan: Diabetes [...] Pending 11/05/2015 Care Plan: %Hba1C LOINC : 38962-5 Pending 11/05/2015 Visit Plan: Hospital follow up [...] Hypertension Completed 03/12/2015 Appointment: Florence Treviño WPtel: [phone] (30 min) Complex 01/24/2015 Visit Plan: HTN-elevated [...] this time 10/24/2014 Appointment: [facility] [address] [phone] [place] New Patient 10/24/2014 Patient Education: Patient Medication Summary Completed 10/24/2014 Patient Education: Hypertension Completed 10/24/2014 Appointment: Florence [facility] [phone] [phone] [place] New Patient 09/25/2014 Instructions Comment [...]
--- OUTSIDE RECORDS SUMMARY | 2018-11-25 13:02 | XMS REPORT | CCD ---
Author Author Florence Treviño Organization Florence Treviño MD, [facility] Address [address] [place] [address] Phone Care Team Providers Care Rn Occupational Name Role Phone PP Unavailable CCM Unavailable Summary Purpose Interface Exchange Insurance Providers Payer name Policy type / Coverage type Covered alliance party ID Effective Begin Date Effective End Date [facility] [id number] 2015 Unknown Family history Father Diagnosis Age [...] Retired disabled 10/24/[address]: 3665319 Former smoker quit 1993 10/24/2014 Allergies, Adverse [...] Start Date Stop Date Status Fill Instructions Novolin 70/30 U-100 Insulin 100 unit/mL subcutaneous suspension RxNorm: 267083 INJECT 100 UNITS UNDER THE SKIN TWO TIMES A DAY 01/04/2018 05/03/2018 Active mupirocin 2 % topical ointment RxNorm: 330505 1 Gram(s) TOP BID to affected area 12/29/2017 No Stop Date Active Levaquin 500 mg tablet RxNorm: 592969 1 Tablet(s) PO daily 12/29/2017 01/04/2018 Inactive hydrocodone 10 mg-acetaminophen 325 mg tablet RxNorm: 870180 2 Tablet(s) PO Q6 PRN 12/28/2017 01/18/2018 Active mupirocin 2 % topical ointment RxNorm: 706613 1 Gram(s) TOP BID to affected area 12/28/2017 12/28/2017 Inactive Levaquin 500 mg tablet RxNorm: 175540 1 Tablet(s) PO daily 12/28/2017 12/28/2017 Inactive Novolin 70/30 U-100 Insulin 100 unit/mL subcutaneous suspension RxNorm: 950806 INJECT 100 UNITS UNDER THE SKIN TWO TIMES A DAY 11/24/2017 12/13/2017 Inactive hydrocodone 10 mg-acetaminophen 325 mg tablet RxNorm: 161927 2 Tablet(s) PO Q6 PRN 11/02/2017 11/23/2017 Inactive nystatin 100,000 unit/gram topical powder RxNorm: 098920 APPLY ONE GRAM TOPICALLY FOUR TIMES A DAY NEEDED 10/22/2017 11/02/2017 Inactive hydrocodone 10 mg-acetaminophen 325 mg tablet RxNorm: 817422 2 Tablet(s) PO Q6 PRN 09/21/2017 10/12/2017 Inactive Levaquin 500 mg tablet RxNorm: 392818 1 Tablet(s) PO daily 09/04/2017 09/03/2017 Inactive Levaquin 500 mg tablet RxNorm: 927476 1 Tablet(s) PO daily 09/04/2017 09/10/2017 Inactive Keflex 500 mg capsule RxNorm: 874905 1 Capsule(s) PO daily 08/19/2017 08/18/2017 Inactive Take probiotic while on antibiotic hydrocodone 10 mg-acetaminophen 325 mg tablet RxNorm: 808817 2 Tablet(s) PO Q6 PRN 08/19/2017 09/09/2017 Inactive Keflex 500 mg capsule RxNorm: 408542 1 Capsule(s) PO QID 08/19/2017 12/27/2017 Inactive Take probiotic while on antibiotic mupirocin 2 % topical ointment RxNorm: 964895 1 Gram(s) TOP BID to affected area 08/19/2017 12/27/2017 Inactive hydrocodone 10 mg-acetaminophen 325 mg tablet RxNorm: 776052 2 Tablet(s) PO Q6 PRN 07/20/2017 08/10/2017 Inactive hydrocodone 10 mg-acetaminophen 325 mg tablet RxNorm: 044921 2 Tablet(s) PO Q6 PRN 06/12/2017 07/03/2017 Inactive ipratropium-albuterol 0.5 mg-3 mg(2.5 mg base)/3 mL nebulization soln RxNorm: 3029978 INHALE ONE VIAL VIA NEBULIZER EVERY 4 HOURS NEEDED FOR SHORTNESS OF BREATH 06/03/2017 No Stop Date Active hydrocodone 10 mg-acetaminophen 325 mg tablet RxNorm: 125071 2 Tablet(s) PO Q6 PRN 05/13/2017 06/03/2017 Inactive Lasix 80 mg tablet RxNorm: 894272 Tablet(s) TAKE ONE TABLET BY MOUTH DAILY 05/06/2017 11/01/2017 Inactive hydrocodone 10 mg-acetaminophen 325 mg tablet RxNorm: 533184 2 Tablet(s) PO Q6 PRN 04/13/2017 05/04/2017 Inactive hydrocodone 10 mg-acetaminophen 325 mg tablet RxNorm: 443314 2 Tablet(s) PO Q6 PRN 03/02/2017 03/23/2017 Inactive potassium chloride ER 10 mEq tablet,extended release RxNorm: 393090 TAKE ONE TABLET BY MOUTH FOUR TIMES A WEEK NEEDED 02/09/2017 03/22/2017 Inactive potassium chloride ER 10 mEq tablet,extended release RxNorm: 944333 TAKE ONE TABLET BY MOUTH FOUR TIMES A WEEK NEEDED 02/09/2017 02/08/2017 Inactive Neurontin 800 mg tablet RxNorm: 492844 TAKE ONE TABLET BY MOUTH THREE TIMES A DAY 01/20/2017 05/19/2017 Inactive hydrocodone 10 mg-acetaminophen 325 mg tablet RxNorm: 069464 2 Tablet(s) PO Q6 PRN 01/12/2017 02/02/2017 Inactive Lasix 80 mg tablet RxNorm: 078915 Tablet(s) TAKE ONE TABLET BY MOUTH DAILY 01/12/2017 03/12/2017 Inactive Novolin 70/30 U-100 Insulin 100 unit/mL subcutaneous suspension RxNorm: 257823 INJECT 100 UNITS UNDER THE SKIN TWO TIMES A DAY 01/09/2017 02/17/2017 Inactive Please contact prescriber by phone/fax. 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 to Home Care Giver unable to process Rejection Xcjk=119 Rejection iqflyo=[id number] FAX FAILED: No local dialtone; too many attempts to dial Lasix 80 mg tablet RxNorm: 372485 Tablet(s) TAKE ONE TABLET BY MOUTH DAILY 01/06/2017 01/11/2017 Inactive hydrocodone 10 mg-acetaminophen 325 mg tablet RxNorm: 985718 2 Tablet(s) PO Q6 PRN 11/25/2016 12/16/2016 Inactive nystatin 100,000 unit/gram topical powder RxNorm: 380514 1 Gram(s) TOP QID as needed 11/25/2016 10/21/2017 Inactive hydrocodone 10 mg-acetaminophen 325 mg tablet RxNorm: 460590 2 Tablet(s) PO Q6 PRN 10/30/2016 11/20/2016 Inactive hydrocodone 10 mg-acetaminophen 325 mg tablet RxNorm: 902609 2 Tablet(s) PO Q6 PRN 10/01/2016 10/22/2016 Inactive hydrocodone 10 mg-acetaminophen 325 mg tablet RxNorm: 222674 2 Tablet(s) PO Q6 PRN 09/01/2016 09/22/2016 Inactive Novolin 70/30 100 unit/mL subcutaneous suspension RxNorm: 738639 INJECT 100 UNITS UNDER THE SKIN TWO TIMES A DAY 08/21/2016 09/04/2016 Inactive hydrocodone 10 mg-acetaminophen 325 mg tablet RxNorm: 605814 2 Tablet(s) PO Q6 PRN 07/29/2016 08/19/2016 Inactive hydrocodone 10 mg-acetaminophen 325 mg tablet RxNorm: 151096 2 Tablet(s) PO Q6 PRN 06/30/2016 07/21/2016 Inactive Neurontin 800 mg tablet RxNorm: 771409 1 Tablet(s) PO TID 06/23/2016 12/19/2016 Inactive glyburide 5 mg tablet RxNorm: 635973 TAKE ONE TABLET BY MOUTH TWICE A DAY 06/12/2016 09/09/2016 Inactive hydrocodone 10 mg-acetaminophen 325 mg tablet RxNorm: 273617 2 Tablet(s) PO Q6 PRN 05/16/2016 06/06/2016 Inactive morphine ER 15 mg tablet,extended release RxNorm: 980733 1 Tablet(s) 15mg IR PO BID as needed 05/13/2016 06/11/2016 Inactive nystatin 100,000 unit/gram topical powder RxNorm: 582888 1 Gram(s) TOP QID as needed 05/13/2016 11/24/2016 Inactive gemfibrozil 600 mg tablet RxNorm: 936293 TAKE ONE TABLET BY MOUTH TWICE A DAY 05/05/2016 10/31/2016 Inactive hydrocodone 10 mg-acetaminophen 325 mg tablet RxNorm: 333747 2 Tablet(s) PO Q6 PRN 04/18/2016 05/09/2016 Inactive Keflex 500 mg capsule RxNorm: 401682 1 Capsule(s) PO TID 04/15/2016 06/22/2016 Inactive Keflex 500 mg capsule RxNorm: 729097 1 Capsule(s) PO TID 04/15/2016 04/14/2016 Inactive hydrocodone 10 mg-acetaminophen 325 mg tablet RxNorm: 976769 2 Tablet(s) PO Q6 PRN 03/19/2016 04/17/2016 Inactive captopril 100 mg tablet RxNorm: 152471 TAKE ONE TABLET BY MOUTH TWICE A DAY 03/03/2016 06/30/2016 Inactive gemfibrozil 600 mg tablet RxNorm: 859108 TAKE ONE TABLET BY MOUTH TWICE A DAY 03/03/2016 05/01/2016 Inactive hydrocodone 10 mg-acetaminophen 325 mg tablet RxNorm: 258035 2 Tablet(s) PO Q6 PRN 02/28/2016 03/18/2016 Inactive Cipro 500 mg tablet RxNorm: 262799 1 Tablet(s) PO BID 02/21/2016 02/27/2016 Inactive [SAVINGS FOR NON-COVERED DRUGS -- BIN:606967, PCN: ASPROD1, Group: XXXXX, ID# [id number], Questions: . THIS IS NOT INSURANCE.] hydrocodone 10 mg-acetaminophen 325 mg tablet RxNorm: 496015 2 Tablet(s) PO Q6 PRN 02/01/2016 02/27/2016 Inactive hydrocodone 10 mg-acetaminophen 325 mg tablet RxNorm: 556842 2 Tablet(s) PO Q6 PRN 01/08/2016 01/31/2016 Inactive Lasix 80 mg tablet RxNorm: 520039 TAKE ONE TABLET BY MOUTH DAILY 12/18/2015 01/16/2016 Inactive Request already responded to by other means (e.g. phone or fax) gemfibrozil 600 mg tablet RxNorm: 544952 TAKE ONE TABLET BY MOUTH TWICE A DAY 12/18/2015 03/02/2016 Inactive Request already responded to by other means (e.g. phone or fax) glyburide 5 mg tablet RxNorm: 919163 TAKE ONE TABLET BY MOUTH TWICE A DAY 12/18/2015 01/16/2016 Inactive Request already responded to by other means (e.g. phone or fax) potassium chloride ER 10 mEq tablet,extended release RxNorm: 162764 TAKE ONE TABLET BY MOUTH DAILY 12/14/2015 02/11/2016 Inactive glyburide 5 mg tablet RxNorm: 732855 TAKE ONE TABLET BY MOUTH TWICE A DAY 12/14/2015 02/11/2016 Inactive gemfibrozil 600 mg tablet RxNorm: 471605 TAKE ONE TABLET BY MOUTH TWICE A DAY 12/14/2015 03/12/2016 Inactive potassium chloride ER 10 mEq tablet,extended release RxNorm: 648164 TAKE ONE TABLET BY MOUTH DAILY 12/14/2015 01/12/2016 Inactive Lasix 80 mg tablet RxNorm: 735658 TAKE ONE TABLET BY MOUTH DAILY 12/14/2015 02/11/2016 Inactive Neurontin 800 mg tablet RxNorm: 152027 1 Tablet(s) PO TID 12/10/2015 06/06/2016 Inactive morphine ER 15 mg tablet,extended release RxNorm: 685564 1 Tablet(s) 15mg IR PO BID as needed 12/03/2015 01/01/2016 Inactive Neurontin 800 mg tablet RxNorm: 473991 1 Tablet(s) PO TID 11/05/2015 12/09/2015 Inactive hydrocodone 10 mg-acetaminophen 325 mg tablet RxNorm: 711974 2 Tablet(s) PO Q6 PRN 10/23/2015 01/07/2016 Inactive hydrocodone 10 mg-acetaminophen 325 mg tablet RxNorm: 981536 2 Tablet(s) PO Q6 PRN 10/02/2015 10/22/2015 Inactive Neurontin 800 mg tablet RxNorm: 517502 1 Tablet(s) PO TID 09/27/2015 11/04/2015 Inactive Diflucan 150 mg tablet RxNorm: 720384 1 Tablet(s) PO daily 09/06/2015 09/05/2015 Inactive Keflex 500 mg capsule RxNorm: 964680 1 Capsule(s) PO TID 09/06/2015 12/09/2015 Inactive Diflucan 150 mg tablet RxNorm: 127418 1 Tablet(s) PO daily 09/06/2015 12/09/2015 Inactive Keflex 500 mg capsule RxNorm: 253559 1 Capsule(s) PO TID 09/06/2015 09/05/2015 Inactive Novolin 70/30 100 unit/mL subcutaneous suspension RxNorm: 747647 INJECT 100 UNITS UNDER THE SKIN TWO TIMES A DAY 08/20/2015 11/07/2015 Inactive morphine ER 15 mg tablet,extended release RxNorm: 511072 1 Tablet(s) 15mg IR PO BID as needed 08/08/2015 11/04/2015 Inactive Novolin 70/30 100 unit/mL subcutaneous suspension RxNorm: 242781 100 Unit(s) SQ BID 07/10/2015 08/08/2015 Inactive Novolin 70/30 100 unit/mL subcutaneous solution RxNorm: 009815 100 Unit(s) SQ BID 07/10/2015 07/09/2015 Inactive Mobic 15 mg tablet RxNorm: 284834 1 Tablet(s) PO daily 07/05/2015 12/31/2015 Inactive captopril 100 mg tablet RxNorm: 016953 1 Tablet(s) PO BID 07/05/2015 12/31/2015 Inactive Lopid 600 mg tablet RxNorm: 571767 1 Tablet(s) PO BID 07/05/2015 No Stop Date Active hydrocodone 10 mg-acetaminophen 325 mg tablet RxNorm: 505950 2 Tablet(s) PO Q6 PRN 07/05/2015 10/01/2015 Inactive Neurontin 800 mg tablet RxNorm: 319297 1 Tablet(s) PO TID 07/05/2015 09/26/2015 Inactive Humulin 70/30 100 unit/mL subcutaneous suspension RxNorm: 582129 100 100 Unit(s) SQ BID 07/05/2015 07/09/2015 Inactive may dispense 30 or 90 day supply Lyrica 75 mg capsule RxNorm: 468127 1 Capsule(s) PO BID 07/05/2015 07/04/2015 Inactive glyburide 5 mg tablet RxNorm: 490651 1 Tablet(s) PO BID 07/05/2015 12/13/2015 Inactive potassium chloride ER 10 mEq tablet,extended release RxNorm: 380310 1 Tablet(s) PO daily 07/05/2015 12/13/2015 Inactive Lasix 80 mg tablet RxNorm: 047713 1 Tablet(s) PO daily 07/05/2015 12/13/2015 Inactive Lyrica 75 mg capsule RxNorm: 588350 1 Capsule(s) PO BID 07/05/2015 11/04/2015 Inactive morphine ER 15 mg tablet,extended release RxNorm: 543432 1 Tablet(s) 15mg IR PO BID as needed 07/05/2015 08/03/2015 Inactive morphine 15 mg capsule RxNorm: 203407 1 Capsule(s) 15mg IR PO BID as needed 06/25/2015 07/04/2015 Inactive morphine 15 mg capsule RxNorm: 693009 1 Capsule(s) 15mg IR PO BID as needed 05/24/2015 06/22/2015 Inactive morphine 15 mg capsule RxNorm: 863815 1 Capsule(s) 15mg IR PO BID as needed 04/16/2015 05/14/2015 Inactive gemfibrozil 600 mg tablet RxNorm: 170898 1 Tablet(s) PO BID 04/11/2015 07/05/2015 Inactive Glucophage 1,000 mg tablet RxNorm: 451587 1 Tablet(s) PO BID 03/12/2015 03/05/2016 Inactive captopril 100 mg tablet RxNorm: 232220 1 Tablet(s) PO BID 03/12/2015 07/04/2015 Inactive potassium chloride ER 10 mEq tablet,extended release RxNorm: 787909 1 Tablet(s) PO daily 03/12/2015 07/04/2015 Inactive glyburide 5 mg tablet RxNorm: 018377 1 Tablet(s) PO BID 03/12/2015 07/04/2015 Inactive Mobic 15 mg tablet RxNorm: 299294 1 Tablet(s) PO daily 03/12/2015 07/04/2015 Inactive morphine 15 mg capsule RxNorm: 137858 1 Capsule(s) 15mg IR PO BID as needed 03/12/2015 04/10/2015 Inactive hydrocodone 10 mg-acetaminophen 325 mg tablet RxNorm: 509746 2 Tablet(s) PO Q6 PRN 03/12/2015 07/04/2015 Inactive Neurontin 800 mg tablet RxNorm: 579325 1 Tablet(s) PO TID 03/12/2015 06/09/2015 Inactive morphine 15 mg capsule RxNorm: 809002 1 Capsule(s) 15mg IR PO BID as needed 02/09/2015 03/10/2015 Inactive Glucophage 1,000 mg tablet RxNorm: 247046 1 Tablet(s) PO BID 01/31/2015 03/11/2015 Inactive Glucophage 1,000 mg tablet RxNorm: 836681 1 Tablet(s) PO BID 01/15/2015 01/30/2015 Inactive morphine 15 mg capsule RxNorm: 256001 1 Capsule(s) 15mg IR PO BID as needed 01/11/2015 02/08/2015 Inactive hydrocodone 10 mg-acetaminophen 325 mg tablet RxNorm: 964850 2 Tablet(s) PO Q6 PRN 01/11/2015 03/11/2015 Inactive morphine 15 mg capsule RxNorm: 058090 1 Capsule(s) 15mg IR PO BID as needed 12/13/2014 01/10/2015 Inactive morphine 15 mg capsule RxNorm: 647523 1 Capsule(s) PO BID as needed 12/08/2014 12/07/2014 Inactive morphine 15 mg capsule RxNorm: 320173 1 Capsule(s) PO BID as needed 12/08/2014 12/12/2014 Inactive hydrocodone 10 mg-acetaminophen 325 mg tablet RxNorm: 638428 2 Tablet(s) PO Q6 PRN 10/27/2014 01/10/2015 Inactive clindamycin 150 mg capsule RxNorm: 650417 1 Capsule(s) PO QID 10/24/2014 11/02/2014 Inactive hydrocodone 10 mg-acetaminophen 325 mg tablet RxNorm: 827830 1 Tablet(s) PO Q6 PRN 10/24/2014 10/26/2014 Inactive Cipro 500 mg tablet RxNorm: 168867 1 Tablet(s) PO BID 09/08/2014 09/17/2014 Inactive [SAVINGS FOR NON-COVERED DRUGS -- BIN:[id number], PCN: ASPROD1, Group: XXXXX, ID# [id number], Questions: . THIS IS NOT INSURANCE.] Flagyl 500 mg tablet RxNorm: 570988 1 Tablet(s) PO TID 09/08/2014 09/17/2014 Inactive [SAVINGS FOR NON-COVERED DRUGS -- BIN:636771, PCN: ASPROD1, Group: XXXXX, ID# [id number], Questions: . THIS IS NOT INSURANCE.] Flagyl 500 mg tablet RxNorm: 135878 1 Tablet(s) PO TID 09/08/2014 09/07/2014 Inactive Cipro 500 mg tablet RxNorm: 457014 1 Tablet(s) PO BID 09/08/2014 09/07/2014 Inactive Promethazine VC-Codeine 6.25 mg-5 mg-10 mg/5 mL syrup RxNorm: 882686 to 10 Milliliter(s) PO Q6 No Start Date Active multivitamin oral RxNorm: 12426 oral No Start Date Active Fish Oil capsule RxNorm: Capsule(s) PO 1200 mg No Start Date Active melatonin 5 mg tablet RxNorm: 610374 2 Tablet(s) PO QHS No Start Date Active vitamin E 1,000 unit tablet RxNorm: 179323 oral No Start Date Active Calcium 600 + D(3) oral RxNorm: 937145 oral No Start Date Active Multiple Vitamins Daily oral RxNorm: 30872 oral No Start Date Active oxycodone 10 mg tablet RxNorm: 1099032 1 Tablet(s) PO Q6 PRN No Start Date Active Lopid 600 mg tablet RxNorm: 712204 1 Tablet(s) PO BID No Start Date 04/10/2015 Inactive vitamin F20-gkbxtfk B1 intramuscular RxNorm: 12496 intramuscular No Start Date 11/04/2015 Inactive Mobic 15 mg tablet RxNorm: 466502 1 Tablet(s) PO daily No Start Date 03/11/2015 Inactive Vitamin D3 2,000 unit capsule RxNorm: 116709 1 Capsule(s) PO daily No Start Date 11/04/2015 Inactive Vitamin C 1,000 mg tablet RxNorm: 880905 1 Tablet(s) PO daily No Start Date 11/04/2015 Inactive captopril 100 mg tablet RxNorm: 376030 1 Tablet(s) PO BID No Start Date 03/11/2015 Inactive nystatin 100,000 unit/gram topical powder RxNorm: 307585 1 Gram(s) TOP QID as needed No Start Date 05/12/2016 Inactive Neurontin 800 mg tablet RxNorm: 952607 1 Tablet(s) PO TID No Start Date 03/11/2015 Inactive mupirocin 2 % topical ointment RxNorm: 112241 1 Gram(s) TOP BID to affected area No Start Date 08/18/2017 Inactive KCL 20 meq RxNorm: 1 Tablet(s) PO daily No Start Date 03/11/2015 Inactive Lasix 80 mg tablet RxNorm: 356247 1 Tablet(s) PO daily No Start Date 07/04/2015 Inactive ipratropium-albuterol 0.5 mg-3 mg(2.5 mg base)/3 mL nebulization soln RxNorm: 3786225 INHALE ONE VIAL VIA NEBULIZER EVERY 4 HOURS NEEDED FOR SHORTNESS OF BREATH No Start Date 06/02/2017 Inactive Lyrica 75 mg capsule RxNorm: 075000 1 Capsule(s) PO BID No Start Date 07/04/2015 Inactive glyburide 5 mg tablet RxNorm: 326086 1 Tablet(s) PO BID No Start Date 03/11/2015 Inactive hydrocodone 10 mg-acetaminophen 325 mg tablet RxNorm: 967139 1 Tablet(s) PO Q6 PRN No Start Date 10/23/2014 Inactive Glucophage 1,000 mg tablet RxNorm: 708681 2 Tablet(s) PO daily No Start Date 01/14/2015 Inactive Humulin 70/30 100 unit/mL subcutaneous suspension RxNorm: 947036 100 Unit(s) SQ BID No Start Date [...] Code Item Item Code Result Date %Hba1C Efu995 % HbA1c 83400- 6 7.3 % 07/05/2015 %Hba1C Vdu572 Gluc Ave 163 mg/dL 07/05/2015 Cbc With [...] 93.6 fl 07/05/2015 Cbc With Differential Ord2 Posey% 8.1 % 07/05/2015 Cbc With Differential Ord2 [...] 1.65 K/ul 07/05/2015 Cbc With Differential Ord2 Posey ABS# 0.7 K/ul 07/05/2015 Cbc With Differential Ord2 Eos ABS# 0.4 K/ul 07/05/2015 Cbc With Differential Ord2 Baso ABS# 0.0 K/ul 07/05/2015 Cbc With Differential Ord2 New Analyzer Notice Please note new ref ranges starting 05-30-2015 due to implemntation of new five part differential hematolgy analyzer. 07/05/2015 Tsh Ord6 hTSH II 1.45 uIU/mL 07/05/2015 Total Psa Ord10 PSA 0.14 ng/mL 07/05/2015 Comp Metabolic Vqo275 NA 138 mEq/L 07/05/2015 Comp Metabolic Gfn769 K 4.7 mEq/L 07/05/2015 Comp Metabolic Sqt661 CL 101 mEq/L 07/05/2015 Comp Metabolic Ock419 CO2 27.0 mEq/L 07/05/2015 Comp Metabolic Llg256 ANION GAP 15 07/05/2015 Comp Metabolic Xdb159 GLUCOSE 152 mg/dL 07/05/2015 Comp Metabolic Fnk148 Creat 0.8 mg/dL 07/05/2015 Comp Metabolic Juc975 eGFR 106 ml/min/1.73m2 07/05/2015 Comp Metabolic Hdh892 BUN 14 mg/dL 07/05/2015 Comp Metabolic Tcy442 B/C Ratio 17.7 Ratio 07/05/2015 Comp Metabolic Qzp740 CALCIUM 9.4 mg/dL 07/05/2015 Comp Metabolic Ulp157 ALK PHOS 77 U/L 07/05/2015 Comp Metabolic Hbs371 AST(SGOT) 23 U/L 07/05/2015 Comp Metabolic Ken029 ALT(SGPT) 25 U/L 07/05/2015 Comp Metabolic Sot176 BILI T 0.6 mg/dL 07/05/2015 Comp Metabolic Lcb910 ALBUMIN 4.0 g/dL 07/05/2015 Comp Metabolic Mwg483 TPRO 6.5 g/dL 07/05/2015 Comp Metabolic Qsz125 GLOB 2.5 g/dL 07/05/2015 Comp Metabolic Fdv409 A/G Ratio 1.6 Ratio 07/05/2015 Comp Metabolic Kpf448 Osmo 279 mOsmo 07/05/2015 Cbc With Differential [...] Differential Ord2 RDW 13.3 % 03/12/2015 %Hba1C Hdq912 % HbA1c 19466- 6 6.6 % 03/12/2015 %Hba1C Irc145 Gluc Ave 143 mg/dL 03/12/2015 Comp Metabolic Fph759 NA 135 mEq/L 03/12/2015 Comp Metabolic Fxo218 K 4.7 mEq/L 03/12/2015 Comp Metabolic Ang439 CL 98 mEq/L 03/12/2015 Comp Metabolic Hfc504 CO2 27.0 mEq/L 03/12/2015 Comp Metabolic Zyw962 ANION GAP 15 03/12/2015 Comp Metabolic Hhu796 GLUCOSE 232 mg/dL 03/12/2015 Comp Metabolic Nno311 Creat 0.8 mg/dL 03/12/2015 Comp Metabolic Pcm235 eGFR 104 ml/min/1.73m2 03/12/2015 Comp Metabolic Sty514 BUN 19 mg/dL 03/12/2015 Comp Metabolic Wsq373 B/C Ratio 23.8 Ratio 03/12/2015 Comp Metabolic Ybp928 CALCIUM 9.2 mg/dL 03/12/2015 Comp Metabolic Kjo063 ALK PHOS 74 U/L 03/12/2015 Comp Metabolic Jhf376 AST(SGOT) 24 U/L 03/12/2015 Comp Metabolic Jir327 ALT(SGPT) 29 U/L 03/12/2015 Comp Metabolic Goz844 BILI T 0.4 mg/dL 03/12/2015 Comp Metabolic Rpl045 ALBUMIN 4.2 g/dL 03/12/2015 Comp Metabolic Ats084 TPRO 6.5 g/dL 03/12/2015 Comp Metabolic Ivp981 GLOB 2.3 g/dL 03/12/2015 Comp Metabolic Ody556 A/G Ratio 1.8 Ratio 03/12/2015 Comp Metabolic Wsg172 Osmo 280 mOsmo 03/12/2015 Review of Systems [...] Codes Date URINALYSIS NONAUTO W/O SCOPE CPT-4: 81597 02/22/2016 Vital Signs Date Vital 11/05/2015 Blood [...] data Encounters Encounter Performer Location Codes Date ([id number]) [id number] EST. PATIENT, LEVEL IV Diagnosis: Type 2 diabetes mellitus with diabetic polyneuropathy[ICD10: E11.42] Diagnosis: Essential (primary) hypertension[ICD10: I10] Diagnosis: Panniculitis, unspecified[ICD10: M79.3] Diagnosis: Bilateral primary osteoarthritis of knee[ICD10: M17.0] Diagnosis: Heart failure, unspecified[ICD10: I50.9] Graciela Treviño MD, [facility] CPT-4: 14236 11/05/2015 [id number] EST. PATIENT, LEVEL IV Diagnosis: Encounter for follow-up examination after completed treatment for conditions other than malignant neoplasm[ICD10: Z09] Ashlyn Treviño MD, [facility] CPT-4: 02441 09/27/2015 ([id number]) [id number] EST. 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: E11.42] [facility] CPT-4: 60365 03/12/2015 ([id number]) OFFICE VISIT, NEW - LEVEL 4 Diagnosis: ESSENTIAL HYPERTENSION[ICD9: 401.9] Diagnosis: Osteoarthritis of knees, bilateral[ICD9: 715.96] Diagnosis: Diabetes mellitus[ICD9: 250.00] Diagnosis: Double vision[ICD9: 368.2] Diagnosis: ACUTE SINUSITIS[ICD9: 461.9] [facility] CPT-4: 70710 10/24/2014 Plan of Care Planned Activity Notes Codes Status Date Appointment: Graciela Ruvalcaba WPtel: [phone] [phone] (30 min) Complex 01/01/2017 Appointment: Nurse Visit 02/22/2016 Patient Education: Patient Medication Summary Completed 02/22/2016 Appointment: Graciela Ruvalcaba WPtel: [phone] [phone] (30 min) Complex 02/07/2016 [phone] [place] (15 min) Moderate 01/10/2016 Visit [...] Pending 11/05/2015 Care Plan: %Hba1C LOINC : 39402-9 Pending 11/05/2015 Visit Plan: Hospital follow up [...] Completed 03/12/2015 App[facility]ment: [phone] ([facility] min) Complex 01/24/2015 Visit Plan: [...] in medication at this time 10/24/2014 Appointment: [phone] [place] New Patient 10/24/2014 Patient Education: Patient Medication Summary Completed 10/24/2014 Patient Education: Hypertension Completed 10/24/2014 App[facility]ment: [phone] [facility] [place] New Patient 09/25/2014 Instructions [...]
--- OUTSIDE RECORDS SUMMARY | 2018-11-25 13:04 | XMS REPORT | CCD ---
Author Author Florence Treviño Organization Florence Treviño MD, [facility] Address [address] [place] [address] Phone Care Team Providers Care Herbicide Service Sales Representative Name Role Phone PP Unavailable CCM Unavailable Summary Purpose Interface Exchange Insurance Providers Payer name Policy type / Coverage type Covered alliance party ID Effective Begin Date Effective End Date [facility] [id number] 2015 Unknown Family history Father Diagnosis Age [...] Retired disabled 10/24/[address]: 3389171 Former smoker quit 1993 10/24/2014 Allergies, Adverse [...] Start Date Stop Date Status Fill Instructions ipratropium-albuterol 0.5 mg-3 mg(2.5 mg base)/3 mL nebulization soln RxNorm: 6790035 INHALE ONE VIAL VIA NEBULIZER EVERY 4 HOURS NEEDED FOR SHORTNESS OF BREATH 06/03/2017 No Stop Date Active hydrocodone 10 mg-acetaminophen 325 mg tablet RxNorm: 138076 2 Tablet(s) PO Q6 PRN 05/13/2017 06/03/2017 Inactive Lasix 80 mg tablet RxNorm: 686305 Tablet(s) TAKE ONE TABLET BY MOUTH DAILY 05/06/2017 11/01/2017 Active hydrocodone 10 mg-acetaminophen 325 mg tablet RxNorm: 707750 2 Tablet(s) PO Q6 PRN 04/13/2017 05/04/2017 Inactive hydrocodone 10 mg-acetaminophen 325 mg tablet RxNorm: 526777 2 Tablet(s) PO Q6 PRN 03/02/2017 03/23/2017 Inactive potassium chloride ER 10 mEq tablet,extended release RxNorm: 425873 TAKE ONE TABLET BY MOUTH FOUR TIMES A WEEK NEEDED 02/09/2017 03/22/2017 Inactive potassium chloride ER 10 mEq tablet,extended release RxNorm: 679389 TAKE ONE TABLET BY MOUTH FOUR TIMES A WEEK NEEDED 02/09/2017 02/08/2017 Inactive Neurontin 800 mg tablet RxNorm: 398560 TAKE ONE TABLET BY MOUTH THREE TIMES A DAY 01/20/2017 05/19/2017 Inactive hydrocodone 10 mg-acetaminophen 325 mg tablet RxNorm: 923400 2 Tablet(s) PO Q6 PRN 01/12/2017 02/02/2017 Inactive Lasix 80 mg tablet RxNorm: 109054 Tablet(s) TAKE ONE TABLET BY MOUTH DAILY 01/12/2017 03/12/2017 Inactive Novolin 70/30 100 unit/mL subcutaneous suspension RxNorm: 619480 INJECT 100 UNITS UNDER THE SKIN TWO TIMES A DAY 01/09/2017 02/17/2017 Inactive Please contact prescriber by phone/fax. 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 to [employer]visor [employer] unable to process Rejection Kejl=[id number] Rejection lrhijr=[id number] FAX FAILED: No local dialtone; too many attempts to dial Lasix 80 mg tablet RxNorm: 692393 Tablet(s) TAKE ONE TABLET BY MOUTH DAILY 01/06/2017 01/11/2017 Inactive nystatin 100,000 unit/gram topical powder RxNorm: 342201 1 Gram(s) TOP QID as needed 11/25/2016 No Stop Date Active hydrocodone 10 mg-acetaminophen 325 mg tablet RxNorm: 140896 2 Tablet(s) PO Q6 PRN 11/25/2016 12/16/2016 Inactive hydrocodone 10 mg-acetaminophen 325 mg tablet RxNorm: 607884 2 Tablet(s) PO Q6 PRN 10/30/2016 11/20/2016 Inactive hydrocodone 10 mg-acetaminophen 325 mg tablet RxNorm: 185601 2 Tablet(s) PO Q6 PRN 10/01/2016 10/22/2016 Inactive hydrocodone 10 mg-acetaminophen 325 mg tablet RxNorm: 313786 2 Tablet(s) PO Q6 PRN 09/01/2016 09/22/2016 Inactive Novolin 70/30 100 unit/mL subcutaneous suspension RxNorm: 326950 INJECT 100 UNITS UNDER THE SKIN TWO TIMES A DAY 08/21/2016 09/04/2016 Inactive hydrocodone 10 mg-acetaminophen 325 mg tablet RxNorm: 414353 2 Tablet(s) PO Q6 PRN 07/29/2016 08/19/2016 Inactive hydrocodone 10 mg-acetaminophen 325 mg tablet RxNorm: 991795 2 Tablet(s) PO Q6 PRN 06/30/2016 07/21/2016 Inactive Neurontin 800 mg tablet RxNorm: 452068 1 Tablet(s) PO TID 06/23/2016 12/19/2016 Inactive glyburide 5 mg tablet RxNorm: 602648 TAKE ONE TABLET BY MOUTH TWICE A DAY 06/12/2016 09/09/2016 Inactive hydrocodone 10 mg-acetaminophen 325 mg tablet RxNorm: 157501 2 Tablet(s) PO Q6 PRN 05/16/2016 06/06/2016 Inactive morphine ER 15 mg tablet,extended release RxNorm: 645445 1 Tablet(s) 15mg IR PO BID as needed 05/13/2016 06/11/2016 Inactive nystatin 100,000 unit/gram topical powder RxNorm: 155924 1 Gram(s) TOP QID as needed 05/13/2016 11/24/2016 Inactive gemfibrozil 600 mg tablet RxNorm: 717999 TAKE ONE TABLET BY MOUTH TWICE A DAY 05/05/2016 10/31/2016 Inactive hydrocodone 10 mg-acetaminophen 325 mg tablet RxNorm: 955602 2 Tablet(s) PO Q6 PRN 04/18/2016 05/09/2016 Inactive Keflex 500 mg capsule RxNorm: 851561 1 Capsule(s) PO TID 04/15/2016 06/22/2016 Inactive Keflex 500 mg capsule RxNorm: 131725 1 Capsule(s) PO TID 04/15/2016 04/14/2016 Inactive hydrocodone 10 mg-acetaminophen 325 mg tablet RxNorm: 241201 2 Tablet(s) PO Q6 PRN 03/19/2016 04/17/2016 Inactive captopril 100 mg tablet RxNorm: 943454 TAKE ONE TABLET BY MOUTH TWICE A DAY 03/03/2016 06/30/2016 Inactive gemfibrozil 600 mg tablet RxNorm: 093465 TAKE ONE TABLET BY MOUTH TWICE A DAY 03/03/2016 05/01/2016 Inactive hydrocodone 10 mg-acetaminophen 325 mg tablet RxNorm: 289084 2 Tablet(s) PO Q6 PRN 02/28/2016 03/18/2016 Inactive Cipro 500 mg tablet RxNorm: 352758 1 Tablet(s) PO BID 02/21/2016 02/27/2016 Inactive [SAVINGS FOR NON-COVERED DRUGS -- BIN:[id number], PCN: [id number], Group: XXXXX, ID# [id number], Questions: . THIS IS NOT INSURANCE.] hydrocodone 10 mg-acetaminophen 325 mg tablet RxNorm: 318027 2 Tablet(s) PO Q6 PRN 02/01/2016 02/27/2016 Inactive hydrocodone 10 mg-acetaminophen 325 mg tablet RxNorm: 974332 2 Tablet(s) PO Q6 PRN 01/08/2016 01/31/2016 Inactive Lasix 80 mg tablet RxNorm: 657220 TAKE ONE TABLET BY MOUTH DAILY 12/18/2015 01/16/2016 Inactive Request already responded to by other means (e.g. phone or fax) gemfibrozil 600 mg tablet RxNorm: 176997 TAKE ONE TABLET BY MOUTH TWICE A DAY 12/18/2015 03/02/2016 Inactive Request already responded to by other means (e.g. phone or fax) glyburide 5 mg tablet RxNorm: 364792 TAKE ONE TABLET BY MOUTH TWICE A DAY 12/18/2015 01/16/2016 Inactive Request already responded to by other means (e.g. phone or fax) potassium chloride ER 10 mEq tablet,extended release RxNorm: 703902 TAKE ONE TABLET BY MOUTH DAILY 12/14/2015 02/11/2016 Inactive glyburide 5 mg tablet RxNorm: 435317 TAKE ONE TABLET BY MOUTH TWICE A DAY 12/14/2015 02/11/2016 Inactive gemfibrozil 600 mg tablet RxNorm: 983091 TAKE ONE TABLET BY MOUTH TWICE A DAY 12/14/2015 03/12/2016 Inactive potassium chloride ER 10 mEq tablet,extended release RxNorm: 484297 TAKE ONE TABLET BY MOUTH DAILY 12/14/2015 01/12/2016 Inactive Lasix 80 mg tablet RxNorm: 576680 TAKE ONE TABLET BY MOUTH DAILY 12/14/2015 02/11/2016 Inactive Neurontin 800 mg tablet RxNorm: 742426 1 Tablet(s) PO TID 12/10/2015 06/06/2016 Inactive morphine ER 15 mg tablet,extended release RxNorm: 075211 1 Tablet(s) 15mg IR PO BID as needed 12/03/2015 01/01/2016 Inactive Neurontin 800 mg tablet RxNorm: 078266 1 Tablet(s) PO TID 11/05/2015 12/09/2015 Inactive hydrocodone 10 mg-acetaminophen 325 mg tablet RxNorm: 399026 2 Tablet(s) PO Q6 PRN 10/23/2015 01/07/2016 Inactive hydrocodone 10 mg-acetaminophen 325 mg tablet RxNorm: 713176 2 Tablet(s) PO Q6 PRN 10/02/2015 10/22/2015 Inactive Neurontin 800 mg tablet RxNorm: 825360 1 Tablet(s) PO TID 09/27/2015 11/04/2015 Inactive Diflucan 150 mg tablet RxNorm: 058174 1 Tablet(s) PO daily 09/06/2015 09/05/2015 Inactive Keflex 500 mg capsule RxNorm: 626194 1 Capsule(s) PO TID 09/06/2015 12/09/2015 Inactive Diflucan 150 mg tablet RxNorm: 998435 1 Tablet(s) PO daily 09/06/2015 12/09/2015 Inactive Keflex 500 mg capsule RxNorm: 247592 1 Capsule(s) PO TID 09/06/2015 09/05/2015 Inactive Novolin 70/30 100 unit/mL subcutaneous suspension RxNorm: 898738 INJECT 100 UNITS UNDER THE SKIN TWO TIMES A DAY 08/20/2015 11/07/2015 Inactive morphine ER 15 mg tablet,extended release RxNorm: 557042 1 Tablet(s) 15mg IR PO BID as needed 08/08/2015 11/04/2015 Inactive Novolin 70/30 100 unit/mL subcutaneous suspension RxNorm: 812908 100 Unit(s) SQ BID 07/10/2015 08/08/2015 Inactive Novolin 70/30 100 unit/mL subcutaneous solution RxNorm: 781812 100 Unit(s) SQ BID 07/10/2015 07/09/2015 Inactive Mobic 15 mg tablet RxNorm: 213871 1 Tablet(s) PO daily 07/05/2015 12/31/2015 Inactive captopril 100 mg tablet RxNorm: 048348 1 Tablet(s) PO BID 07/05/2015 12/31/2015 Inactive Lopid 600 mg tablet RxNorm: 521161 1 Tablet(s) PO BID 07/05/2015 No Stop Date Active hydrocodone 10 mg-acetaminophen 325 mg tablet RxNorm: 844312 2 Tablet(s) PO Q6 PRN 07/05/2015 10/01/2015 Inactive Neurontin 800 mg tablet RxNorm: 443910 1 Tablet(s) PO TID 07/05/2015 09/26/2015 Inactive Humulin 70/30 100 unit/mL subcutaneous suspension RxNorm: 937480 100 100 Unit(s) SQ BID 07/05/2015 07/09/2015 Inactive may dispense 30 or 90 day supply Lyrica 75 mg capsule RxNorm: 464813 1 Capsule(s) PO BID 07/05/2015 07/04/2015 Inactive glyburide 5 mg tablet RxNorm: 149069 1 Tablet(s) PO BID 07/05/2015 12/13/2015 Inactive potassium chloride ER 10 mEq tablet,extended release RxNorm: 720591 1 Tablet(s) PO daily 07/05/2015 12/13/2015 Inactive Lasix 80 mg tablet RxNorm: 146595 1 Tablet(s) PO daily 07/05/2015 12/13/2015 Inactive Lyrica 75 mg capsule RxNorm: 159882 1 Capsule(s) PO BID 07/05/2015 11/04/2015 Inactive morphine ER 15 mg tablet,extended release RxNorm: 524172 1 Tablet(s) 15mg IR PO BID as needed 07/05/2015 08/03/2015 Inactive morphine 15 mg capsule RxNorm: 934201 1 Capsule(s) 15mg IR PO BID as needed 06/25/2015 07/04/2015 Inactive morphine 15 mg capsule RxNorm: 365833 1 Capsule(s) 15mg IR PO BID as needed 05/24/2015 06/22/2015 Inactive morphine 15 mg capsule RxNorm: 261345 1 Capsule(s) 15mg IR PO BID as needed 04/16/2015 05/14/2015 Inactive gemfibrozil 600 mg tablet RxNorm: 844505 1 Tablet(s) PO BID 04/11/2015 07/05/2015 Inactive Glucophage 1,000 mg tablet RxNorm: 805725 1 Tablet(s) PO BID 03/12/2015 03/05/2016 Inactive captopril 100 mg tablet RxNorm: 108728 1 Tablet(s) PO BID 03/12/2015 07/04/2015 Inactive potassium chloride ER 10 mEq tablet,extended release RxNorm: 584546 1 Tablet(s) PO daily 03/12/2015 07/04/2015 Inactive glyburide 5 mg tablet RxNorm: 591569 1 Tablet(s) PO BID 03/12/2015 07/04/2015 Inactive Mobic 15 mg tablet RxNorm: 310992 1 Tablet(s) PO daily 03/12/2015 07/04/2015 Inactive morphine 15 mg capsule RxNorm: 229630 1 Capsule(s) 15mg IR PO BID as needed 03/12/2015 04/10/2015 Inactive hydrocodone 10 mg-acetaminophen 325 mg tablet RxNorm: 269944 2 Tablet(s) PO Q6 PRN 03/12/2015 07/04/2015 Inactive Neurontin 800 mg tablet RxNorm: 101477 1 Tablet(s) PO TID 03/12/2015 06/09/2015 Inactive morphine 15 mg capsule RxNorm: 877459 1 Capsule(s) 15mg IR PO BID as needed 02/09/2015 03/10/2015 Inactive Glucophage 1,000 mg tablet RxNorm: 169893 1 Tablet(s) PO BID 01/31/2015 03/11/2015 Inactive Glucophage 1,000 mg tablet RxNorm: 540763 1 Tablet(s) PO BID 01/15/2015 01/30/2015 Inactive morphine 15 mg capsule RxNorm: 060732 1 Capsule(s) 15mg IR PO BID as needed 01/11/2015 02/08/2015 Inactive hydrocodone 10 mg-acetaminophen 325 mg tablet RxNorm: 134821 2 Tablet(s) PO Q6 PRN 01/11/2015 03/11/2015 Inactive morphine 15 mg capsule RxNorm: 801522 1 Capsule(s) 15mg IR PO BID as needed 12/13/2014 01/10/2015 Inactive morphine 15 mg capsule RxNorm: 336751 1 Capsule(s) PO BID as needed 12/08/2014 12/07/2014 Inactive morphine 15 mg capsule RxNorm: 440781 1 Capsule(s) PO BID as needed 12/08/2014 12/12/2014 Inactive hydrocodone 10 mg-acetaminophen 325 mg tablet RxNorm: 479147 2 Tablet(s) PO Q6 PRN 10/27/2014 01/10/2015 Inactive clindamycin 150 mg capsule RxNorm: 487762 1 Capsule(s) PO QID 10/24/2014 11/02/2014 Inactive hydrocodone 10 mg-acetaminophen 325 mg tablet RxNorm: 166969 1 Tablet(s) PO Q6 PRN 10/24/2014 10/26/2014 Inactive Cipro 500 mg tablet RxNorm: 916802 1 Tablet(s) PO BID 09/08/2014 09/17/2014 Inactive [SAVINGS FOR NON-COVERED DRUGS -- BIN:[id number], PCN: ASPROD1, Group: XXXXX, ID# [id number], Questions: . THIS IS NOT INSURANCE.] Flagyl 500 mg tablet RxNorm: 234453 1 Tablet(s) PO TID 09/08/2014 09/17/2014 Inactive [SAVINGS FOR NON-COVERED DRUGS -- BIN:446380, PCN: ASPROD1, Group: XXXXX, ID# [id number], Questions: . THIS IS NOT INSURANCE.] Flagyl 500 mg tablet RxNorm: 670304 1 Tablet(s) PO TID 09/08/2014 09/07/2014 Inactive Cipro 500 mg tablet RxNorm: 324412 1 Tablet(s) PO BID 09/08/2014 09/07/2014 Inactive Promethazine VC-Codeine 6.25 mg-5 mg-10 mg/5 mL syrup RxNorm: 197874 to 10 Milliliter(s) PO Q6 No Start Date Active multivitamin oral RxNorm: 96154 oral No Start Date Active Fish Oil capsule RxNorm: Capsule(s) PO 1200 mg No Start Date Active melatonin 5 mg tablet RxNorm: 219075 2 Tablet(s) PO QHS No Start Date Active vitamin E 1,000 unit tablet RxNorm: 903870 oral No Start Date Active Calcium 600 + D(3) oral RxNorm: 089730 oral No Start Date Active Multiple Vitamins Daily oral RxNorm: 95938 oral No Start Date Active oxycodone 10 mg tablet RxNorm: 0793644 1 Tablet(s) PO Q6 PRN No Start Date Active Lopid 600 mg tablet RxNorm: 942067 1 Tablet(s) PO BID No Start Date 04/10/2015 Inactive vitamin P51-fqzkhhn B1 intramuscular RxNorm: 68730 intramuscular No Start Date 11/04/2015 Inactive Mobic 15 mg tablet RxNorm: 774820 1 Tablet(s) PO daily No Start Date 03/11/2015 Inactive Vitamin D3 2,000 unit capsule RxNorm: 011674 1 Capsule(s) PO daily No Start Date 11/04/2015 Inactive Vitamin C 1,000 mg tablet RxNorm: 749040 1 Tablet(s) PO daily No Start Date 11/04/2015 Inactive captopril 100 mg tablet RxNorm: 201272 1 Tablet(s) PO BID No Start Date 03/11/2015 Inactive nystatin 100,000 unit/gram topical powder RxNorm: 332627 1 Gram(s) TOP QID as needed No Start Date 05/12/2016 Inactive Neurontin 800 mg tablet RxNorm: 066798 1 Tablet(s) PO TID No Start Date 03/11/2015 Inactive KCL 20 meq RxNorm: 1 Tablet(s) PO daily No Start Date 03/11/2015 Inactive Lasix 80 mg tablet RxNorm: 283729 1 Tablet(s) PO daily No Start Date 07/04/2015 Inactive ipratropium-albuterol 0.5 mg-3 mg(2.5 mg base)/3 mL nebulization soln RxNorm: 8441644 INHALE ONE VIAL VIA NEBULIZER EVERY 4 HOURS NEEDED FOR SHORTNESS OF BREATH No Start Date 06/02/2017 Inactive Lyrica 75 mg capsule RxNorm: 730278 1 Capsule(s) PO BID No Start Date 07/04/2015 Inactive glyburide 5 mg tablet RxNorm: 018126 1 Tablet(s) PO BID No Start Date 03/11/2015 Inactive hydrocodone 10 mg-acetaminophen 325 mg tablet RxNorm: 081792 1 Tablet(s) PO Q6 PRN No Start Date 10/23/2014 Inactive Glucophage 1,000 mg tablet RxNorm: 284482 2 Tablet(s) PO daily No Start Date 01/14/2015 Inactive Humulin 70/30 100 unit/mL subcutaneous suspension RxNorm: 765787 100 Unit(s) SQ BID No Start Date [...] Code Item Item Code Result Date %Hba1C Ncb577 % HbA1c 93260- 6 7.3 % 07/05/2015 %Hba1C Fuk911 Gluc Ave 163 mg/dL 07/05/2015 Cbc With [...] 30.5 pg 07/05/2015 Cbc With Differential Ord2 [place]% 8.1 % 07/05/2015 Cbc With Differential Ord2 [...] 1.65 K/ul 07/05/2015 Cbc With Differential Ord2 [place] ABS# 0.7 K/ul 07/05/2015 Cbc With Differential Ord2 [place] ABS# 0.4 K/ul 07/05/2015 Cbc With Differential Ord2 Baso ABS# 0.0 K/ul 07/05/2015 Cbc With Differential Ord2 New Analyzer Notice Please note new ref ranges starting 05-30-2015 due to implemntation of new five part differential hematolgy analyzer. 07/05/2015 Tsh Ord6 hTSH II 1.45 uIU/mL 07/05/2015 Total Psa Ord10 PSA 0.14 ng/mL 07/05/2015 Comp Metabolic Zqq321 NA 138 mEq/L 07/05/2015 Comp Metabolic Jin290 K 4.7 mEq/L 07/05/2015 Comp Metabolic Gow057 CL 101 mEq/L 07/05/2015 Comp Metabolic Uuy221 CO2 27.0 mEq/L 07/05/2015 Comp Metabolic Cnw285 ANION GAP 15 07/05/2015 Comp Metabolic Oub123 GLUCOSE 152 mg/dL 07/05/2015 Comp Metabolic Hnz520 Creat 0.8 mg/dL 07/05/2015 Comp Metabolic Utr541 eGFR 106 ml/min/1.73m2 07/05/2015 Comp Metabolic Tcg923 BUN 14 mg/dL 07/05/2015 Comp Metabolic Wgx477 B/C Ratio 17.7 Ratio 07/05/2015 Comp Metabolic Tdn199 CALCIUM 9.4 mg/dL 07/05/2015 Comp Metabolic New071 ALK PHOS 77 U/L 07/05/2015 Comp Metabolic Tne652 AST(SGOT) 23 U/L 07/05/2015 Comp Metabolic Tcc489 ALT(SGPT) 25 U/L 07/05/2015 Comp Metabolic Ggr929 BILI T 0.6 mg/dL 07/05/2015 Comp Metabolic Duw431 ALBUMIN 4.0 g/dL 07/05/2015 Comp Metabolic Rru150 TPRO 6.5 g/dL 07/05/2015 Comp Metabolic Akq326 GLOB 2.5 g/dL 07/05/2015 Comp Metabolic Eax911 A/G Ratio 1.6 Ratio 07/05/2015 Comp Metabolic Qnl842 Osmo 279 mOsmo 07/05/2015 Cbc With Differential [...] Differential Ord2 RDW 13.3 % 03/12/2015 %Hba1C Qca204 % HbA1c 38763- 6 6.6 % 03/12/2015 %Hba1C Ftk603 Gluc Ave 143 mg/dL 03/12/2015 Comp Metabolic Mry588 NA 135 mEq/L 03/12/2015 Comp Metabolic Tho760 K 4.7 mEq/L 03/12/2015 Comp Metabolic Kly829 CL 98 mEq/L 03/12/2015 Comp Metabolic Hlw638 CO2 27.0 mEq/L 03/12/2015 Comp Metabolic Ezn448 ANION GAP 15 03/12/2015 Comp Metabolic Qmb018 GLUCOSE 232 mg/dL 03/12/2015 Comp Metabolic Ceq441 Creat 0.8 mg/dL 03/12/2015 Comp Metabolic Rnn443 eGFR 104 ml/min/1.73m2 03/12/2015 Comp Metabolic Tzj386 BUN 19 mg/dL 03/12/2015 Comp Metabolic Mea957 B/C Ratio 23.8 Ratio 03/12/2015 Comp Metabolic Wal774 CALCIUM 9.2 mg/dL 03/12/2015 Comp Metabolic Xrm980 ALK PHOS 74 U/L 03/12/2015 Comp Metabolic Sye247 AST(SGOT) 24 U/L 03/12/2015 Comp Metabolic Zmn332 ALT(SGPT) 29 U/L 03/12/2015 Comp Metabolic Jdq182 BILI T 0.4 mg/dL 03/12/2015 Comp Metabolic Cnh143 ALBUMIN 4.2 g/dL 03/12/2015 Comp Metabolic Cdu347 TPRO 6.5 g/dL 03/12/2015 Comp Metabolic Tyb576 GLOB 2.3 g/dL 03/12/2015 Comp Metabolic Sat930 A/G Ratio 1.8 Ratio 03/12/2015 Comp Metabolic Ocd135 Osmo 280 mOsmo 03/12/2015 Review of Systems [...] clear 03/12/2015 None Full Exam - General 1995 Ears/Nose/Throat oral cavity/pharynx/larynx Overall: oral mucosa clear [...] Codes Date URINALYSIS NONAUTO W/O SCOPE CPT-4: 16307 02/22/2016 Vital Signs Date Vital 11/05/2015 Blood [...] Directive data Encounters Encounter Performer Location Codes ([id number]) [id number] EST. PATIENT, LEVEL IV Diagnosis: Type 2 diabetes mellitus with diabetic polyneuropathy[ICD10: E11.42] Diagnosis: Essential (primary) hypertension[ICD10: I10] Diagnosis: Panniculitis, unspecified[ICD10: M79.3] Diagnosis: Bilateral primary osteoarthritis of knee[ICD10: M17.0] Diagnosis: Heart failure, unspecified[ICD10: I50.9] Graciela Treviño MD, [facility] CPT-4: 21261 11/05/2015 15486 EST. PATIENT, LEVEL IV Diagnosis: Encounter for follow-up examination after completed treatment for conditions other than malignant neoplasm[ICD10: Z09] Ashlyn Treviño MD, [facility] CPT-4: 96930 09/27/2015 ([id number]) [id number] EST. PATIENT, LEVEL IV Diagnosis: Type 2 diabetes mellitus with diabetic polyneuropathy[ICD10: E11.42] Diagnosis: Essential (primary) hypertension[ICD10: I10] Diagnosis: Chronic pain syndrome[ICD10: G89.4] Graciela Treviño MD, [facility] CPT-4: 20309 07/05/2015 ([id number]) [id number] EST. 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: E11.42] Graciela Treviño MD, [facility] CPT-4: 17012 03/12/2015 ([id number]) OFFICE VISIT, NEW - LEVEL 4 Diagnosis: ESSENTIAL HYPERTENSION[ICD9: 401.9] Diagnosis: Osteoarthritis of knees, bilateral[ICD9: 715.96] Diagnosis: Diabetes mellitus[ICD9: 250.00] Diagnosis: Double vision[ICD9: 368.2] Diagnosis: ACUTE SINUSITIS[ICD9: 461.9] [facility] CPT-4: 83446 10/24/2014 Plan of Care Planned Activity Notes Codes Status Date Appointment: Graciel[facility]valcaba [facility] [phone] [facility] 01/01/2017 Appointment: Nurse Visit 02/22/2016 Patient Education: Patient Medication Summary Completed 02/22/2016 Appointment: Graciela Ruvalcaba WPtel[facility] [phone] ([facility] min[facility] Complex 02/07/2016 [facility]ment[facility] [phone] [facility] (15 min) Moderate 01/10/2016 Visit Plan: Diabetes [...] Pending 11/05/2015 Care Plan: %Hba1C LOINC : 74222-3 Pending 11/05/2015 Visit Plan: Hospital follow up [...] Completed 03/12/2015 Appointment: Florence Treviño WPtel: [facility] [place] ([facility] min) Complex 01/24/2015 Visit Plan: [...] time 10/24/2014 Appointment: Graciela Ruvalcaba WPtel: [facility] [phone] [place] New Patient 10/24/2014 Patient Education: Patient Medication Summary Completed 10/24/2014 Patient Education: Hypertension Completed 10/24/2014 Appointment: Florence Treviño WPtel: [facility] [place] [place] New Patient 09/25/2014 Instructions [...]
[2018-11-25 13:07] LABS: ALANINE AMINOTRANSFERASE 7 U/L (0-55); ALBUMIN 3.2 GM/DL (3.2-4.5); ALKALINE PHOSPHATASE 77 U/L (40-136); BILIRUBIN,TOTAL 0.3 MG/DL (0.1-1.0); BUN/CREATININE RATIO 20; CALCIUM 8.8 MG/DL (8.5-10.1); CARBON DIOXIDE 41 MMOL/L (21-32); CHLORIDE 88 MMOL/L (98-107); CREATININE SERUM 0.85 MG/DL (0.60-1.30); GFR ESTIMATED > 60; GLUCOSE 85 MG/DL (70-105); SODIUM 137 MMOL/L (135-145); TOTAL PROTEIN 6.7 GM/DL (6.4-8.2)
--- NOTE | 2018-11-25 13:15 | Diagnostic Imaging Report ---
INDICATION: Increased generalized swelling and weakness as well as shortness of air. TIME OF EXAM: 12:57 p.m. COMPARISON: Correlation is made with prior chest from 01/23/2017. FINDINGS: The heart is markedly enlarged, similar to prior exam. Patient appears to be somewhat rotated. There is some obscuration of the right lung base. Central congestion persists. No definite overt failure is seen. No definite effusion or pneumothorax identified. IMPRESSION: Limited study with portable technique. There is cardiomegaly and central congestion. Dictated by: Dictated on workstation # [id number]
--- NOTE | 2018-11-25 13:38 | ED Respiratory ---
General Chief Complaint: Respiratory Problems Stated Complaint: GENERAL WEAKNESS Nursing Triage Note: PT PRESENTS TO ED VIA EMS FROM HOME WITH COMPLAINTS OF INCREASED GENERALIZED SWELLING, INCREASED GENERALIZED WEAKNESS, SOA, AND DECREASED URINE OUTPUT. Source: patient Exam Limitations: no limitations History of Present Illness Date Seen by Provider: Nov 25, 2018 Time Seen by Provider: 12:25 Initial Comments Here with report of shortness of breath and increasing generalized weakness. Also reports that his legs are swelling and he feels like he has fluid in his l egs and abdomen. Patient is obese morbidly and does have history of heart failure. Apparently has had decreased urination of recent. Temp 99 5 noted on arrival. Denies any recent fever. Denies chest pain or vomiting. EMS report that they had to increase his O2 to 4 L to achieve O2 sat of 94%. Timing/Duration: week, getting worse Severity: moderate Prior Episodes/Possible Cause: occasional episodes Modifying Factors: Worse With Activity; Improves With Oxygen, Improves With Rest Associated Symptoms: No cough; fever/chills; No nasal congestion; shortness of breath Allergies and Home Medications Allergies Coded Allergies: aspirin (Verified Adverse Reaction, Intermediate, CHEST PAIN, 01/22/13) Home Medications Furosemide 20 Mg Tablet, 20 MG PO UD GIVE AT 5PM DAILY X 2 WEEKS THEN NEEDED FOR INCREASED EDEMA THROUGHOUT THE DAY Prescribed by: NITO TREVIÑO on 02/04/17841 Furosemide 40 Mg Tablet, 40 MG PO DAILY Prescribed by: NITO TREVIÑO on 02/04/17841 Gabapentin 800 Mg Tablet, 800 MG PO TID, (Reported) Hydrocodone/Acetaminophen 1 Each Tablet, 2 TAB PO Q6H PRN for PAIN-MODERATE, (Reported) Insulin NPH Hum/Reg Insulin Hm 100 Unit/1 Ml Vial, 100 UNITS SQ HS, (Reported) Insulin NPH Hum/Reg Insulin Hm 100 Unit/1 Ml Vial, 50 UNIT SQ DAILY PRN for BS ABOVE 150, (Reported) Morphine Sulfate 15 Mg Tablet, 15 MG PO BID PRN for PAIN-SEVERE, (Reported) Potassium Chloride 10 Meq Tablet.er, 10 MEQ PO UD TAKE FOUR TIMES A WEEK Prescribed by: NITO TREVIÑO on 02/04/17841 Patient Home Medication List Home Medication List Reviewed: Yes Review of Systems Review of Systems Constitutional: see HPI; No chills, No fever; weakness EENTM: No nose congestion, No throat pain Respiratory: No cough; short of breath; No wheezing Cardiovascular: No chest pain; edema; No palpitations Gastrointestinal: No abdominal pain, No nausea, No vomiting Genitourinary: decreased output; No dysuria Musculoskeletal: no symptoms reported Skin: no symptoms reported Psychiatric/Neurological: No Symptoms Reported All Other Systems Reviewed Negative Unless Noted: Yes Past Tnejeys-Xwhvsh-Kpvgbu Hx Past Med/Social Hx: Reviewed Nursing Past Med/Soc Hx Patient Social History Alcohol Use: Denies Use Recreational Drug Use: No Smoking Status: Former Smoker Former Smoker, Quit: Dec 07, 1994 2nd Hand Smoke Exposure: No Recent Foreign Travel: No Contact w/Someone Who Travel: No Recent Infectious Disease Expo: No Recent Hopitalizations: No Physical Abuse: No Sexual Abuse: No Mistreated: No Fear: No Immunizations Up To Date Tetanus Booster (TDap): Unknown PED Vaccines UTD: Yes Date of Pneumonia Vaccine: Jan 24, 2016 Seasonal Allergies Seasonal Allergies: No Past Medical History 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) Ear Surgery, Tonsillectomy Respiratory: Yes COPD Cardiac: Yes (CARDIOMEGALY, CHF) Chronic Edema/Swelling, High Cholesterol, Hypertension Neurological: Yes (NEUROPATHY FINGERS/FEET) Neuropathy Reproductive Disorders: No Sexually Transmitted Disease: No HIV/AIDS: No Genitourinary: Yes UTI-Chronic Gastrointestinal: Yes (HX OF CDIFF) Abdominal Hernia Musculoskeletal: Yes (HERINATED CERVICAL DISK, CHRONIC BILATERAL KNEE PAIN ) Arthritis Endocrine: Yes (TYPE II; MORBID OBESITY) Diabetes, Insulin dep Loss of Vision: Denies Hearing Impairment: Denies Cancer: No Psychosocial: No Integumentary: Yes (CELLULITIS OF LEGS AND PANNUS ) Blood Disorders: No Family Medical History Reviewed Nursing Family Hx Cardiovascular disease 19 MOTHER Diabetes mellitus 19 MOTHER FH: stomach cancer 19 FATHER Hypercholesterolemia Hypertension 19 MOTHER Kidney disease Myocardial infarction 19 MOTHER Osteoporosis 19 FATHER Heart Disease, Diabetes, Hypertension Physical Exam Vital Signs - First Documented 11/25/18 11/25/18 12:25 12:41 Temp 99.5 Pulse 82 Resp 20 B/P (MAP) 133/72 (92) Pulse Ox 96 O2 Delivery Nasal Cannula O2 Flow Rate 4.00 Capillary Refill : Less Than 3 Seconds Height: 5'10.00" Weight: 473lbs. 10.0oz. 214.857722cw; 80.5 BMI Method:Actual General Appearance: WD/WN, mild distress HEENT: PERRL/EOMI, pharynx normal Neck: full range of motion, supple Respiratory: no accessory muscle use, other (unable to determine lower lung sounds due to body habitus. Upper lung sounds normal) Cardiovascular: regular rate, rhythm, no murmur Gastrointestinal: non tender, soft Extremities: non-tender, normal inspection Neurologic/Psychiatric: alert, oriented x 3 Skin: normal color, warm/dry Focused Exam Lactate Level 11/25/18 12:36: Lactic Acid Level 0.76 Lactic Acid Level Laboratory Tests Test 11/25/18 12:36 Lactic Acid Level 0.76 MMOL/L (0.50-2.00) Progress/Results/Core Measures Suspected Sepsis Recent Fever Within 48 Hours: No Infection Criteria Present: None New/Unexplained Altered Menta: No Sepsis Screen: No Definite Risk SIRS Temperature:99.5 Pulse: 82 Respiratory Rate: 20 Laboratory Tests 11/25/18 12:36: White Blood Count 8.1 Blood Pressure 133 /72 Mean: 92 11/25/18 12:36: Lactic Acid Level 0.76 Laboratory Tests 11/25/18 12:36: Creatinine 0.85, INR Comment 1.0, Platelet Count 184, Total Bilirubin 0.3 Results/Orders Lab Results Laboratory Tests Test 11/25/18 12:36 11/25/18 12:45 11/25/18 14:05 Range/Units White Blood Count 8.1 4.3-11.0 10^3/uL Red Blood Count 4.31 L 4.35-5.85 10^6/uL Hemoglobin 11.2 L 13.3-17.7 G/DL Hematocrit 41 40-54 % Mean Corpuscular Volume 94 80-99 FL Mean Corpuscular Hemoglobin 26 25-34 PG Mean Corpuscular Hemoglobin Concent 28 L 32-36 G/DL Red Cell Distribution Width 14.9 H 10.0-14.5 % Platelet Count 184 130-400 10^3/uL Mean Platelet Volume 11.0 H 7.4-10.4 FL Neutrophils (%) (Auto) 74 42-75 % Lymphocytes (%) (Auto) 13 12-44 % Monocytes (%) (Auto) 10 0-12 % Eosinophils (%) (Auto) 3 0-10 % Basophils (%) (Auto) 0 0-10 % Neutrophils # (Auto) 6.0 1.8-7.8 X 10^3 Lymphocytes # (Auto) 1.1 1.0-4.0 X 10^3 Monocytes # (Auto) 0.8 0.0-1.0 X 10^3 Eosinophils # (Auto) 0.3 0.0-0.3 10^3/uL Basophils # (Auto) 0.0 0.0-0.1 10^3/uL Prothrombin Time 13.6 12.2-14.7 SEC INR Comment 1.0 0.8-1.4 Activated Partial Thromboplast Time 33 24-35 SEC Sodium Level 137 135-145 MMOL/L Potassium Level 5.0 3.6-5.0 MMOL/L Chloride Level 88 L 98-107 MMOL/L Carbon Dioxide Level 41 H 21-32 MMOL/L Anion Gap 8 5-14 MMOL/L Blood Urea Nitrogen 17 7-18 MG/DL Creatinine 0.85 0.60-1.30 MG/DL Estimat Glomerular Filtration Rate > 60 BUN/Creatinine Ratio 20 Glucose Level 85 70-105 MG/DL Lactic Acid Level 0.76 0.50-2.00 MMOL/L Calcium Level 8.8 8.5-10.1 MG/DL Corrected Calcium 9.4 8.5-10.1 MG/DL Total Bilirubin 0.3 0.1-1.0 MG/DL Aspartate Amino Transf (AST/SGOT) 23 5-34 U/L Alanine Aminotransferase (ALT/SGPT) 7 0-55 U/L Alkaline Phosphatase 77 40-136 U/L B-Type Natriuretic Peptide 212.5 H <100.0 PG/ML Total Protein 6.7 6.4-8.2 GM/DL Albumin 3.2 3.2-4.5 GM/DL Blood Gas Puncture Site RIGHT RADIAL Blood Gas Patient Temperature 99.5 Arterial Blood pH 7.36 L 7.37-7.43 Arterial Blood Partial Pressure CO2 85 *H 35-45 MMHG Arterial Blood Partial Pressure O2 101 H 79-93 MMHG Arterial Blood HCO3 47 *H 23-27 MMOL/L Arterial Blood Total CO2 49.1 H 21.0-31.0 MMOL/L Arterial Blood Oxygen Saturation 98 94-100 % Arterial Blood Base Excess 20.1 H -2.5-2.5 MMOL/L Ubaldo Test POSITIVE Blood Gas Ventilator Setting NO Blood Gas Inspired Oxygen 4 L Urine Color YELLOW Urine Clarity CLEAR Urine pH 6 5-9 Urine Specific Crowell 1.015 L 1.016-1.022 Urine Protein 2+ H NEGATIVE Urine Glucose (UA) NEGATIVE NEGATIVE Urine Ketones NEGATIVE NEGATIVE Urine Nitrite NEGATIVE NEGATIVE Urine Bilirubin NEGATIVE NEGATIVE Urine Urobilinogen NORMAL NORMAL MG/DL Urine Leukocyte Esterase 1+ H NEGATIVE Urine RBC (Auto) NEGATIVE NEGATIVE Urine RBC NONE /HPF Urine WBC RARE /HPF Urine Squamous Epithelial Cells RARE /HPF Urine Crystals NONE /LPF Urine Bacteria NEGATIVE /HPF Urine Casts NONE /LPF Urine Mucus NEGATIVE /LPF Urine Culture Indicated CULTURE PENDING My Orders Orders - RICKY SERRA MD Cbc With Automated Diff (11/25/18 12:44) Comprehensive Metabolic Panel (11/25/18 12:44) Blood Culture (11/25/18 12:44) Sputum Culture (11/25/18 12:44) Urinalysis (11/25/18 12:44) Urine Culture (11/25/18 12:44) Protime With Inr (11/25/18 12:44) Partial Thromboplastin Time (11/25/18 12:44) Chest 1 View, Ap/Pa Only (11/25/18 12:44) Ekg Tracing (11/25/18 12:44) Vital Signs Adult Sepsis Patie Q15M (11/25/18 12:44) O2 (11/25/18 12:44) Remove Rings In Anticipation O (11/25/18 12:44) Lactic Acid Analyzer (11/25/18 12:44) Arterial Blood Gas (11/25/18 12:44) BNP (11/25/18 13:18) Arterial Blood Draw (11/25/18 ) Furosemide Injection (Lasix Injection) (11/25/18 14:21) Vital Signs/I&O 11/25/18 11/25/18 12:25 12:41 Temp 99.5 Pulse 82 Resp 20 B/P (MAP) 133/72 (92) Pulse Ox 96 94 O2 Delivery Nasal Cannula O2 Flow Rate 4.00 Capillary Refill : Less Than 3 Seconds Blood Pressure Mean: 92 Progress Note : Progress Note Seen and evaluated. IV by EMS, labs, EKG, chest x-ray, blood cultures, lactic acid, UA and ABG ordered. 024 L via nasal cannula. We will attempt to collect UA if patient has to void. Due to body habitus, there is no way to successfully straight catheter the patient for Neville catheter. Also would be unable to do suprapubic. Monitor patient. 1318: I did discuss the case with Dr. Flores. We will initiate BiPAP at night and when necessary and he will see him in consult if admitted. 1418: Lasix 40 mg IV ordered. I did discuss the case with Dr. Treviño, and she will accept him for admission as inpatient. Agrees with Lasix and BiPAP as well as consult Dr. Flores. Patient and family agree with plan. No findings concerning for sepsis currently. All appears to be obesity related hypoventilation syndrome as well as significant volume overload. Admit, inpatient status, patient and family agree with plan. ECG Initial ECG Impression Date: Nov 25, 2018 Initial ECG Impression Time: 12:51 Initial ECG Rate: 86 Initial ECG Rhythm: Normal Sinus Initial ECG Comparisson: Unchanged Comment Sinus rhythm with normal axis. No evidence of ST elevation NC. Similar to previous of 01/24/17. Interpreted by me. Diagnostic Imaging Diagonstic Imaging: Xray Plain Films/CT/US/NM/MRI: chest Comments [facility] [place], [place] NAME: LANCE GOMEZ [facility] REC#: [id number] PT STATUS: REG ER : 1955 PHYSICIAN: RICKY SERRA MD ADMIT DATE: 11/25/18/ER Draft Date of Exam:11/25/18 CHEST 1 VIEW, AP/PA ONLY INDICATION: Increased generalized swelling and weakness as well as shortness of air. TIME OF EXAM: 12:57 p.m. COMPARISON: Correlation is made with prior chest from 01/23/2017. FINDINGS: The heart is markedly enlarged, similar to prior exam. Patient appears to be somewhat rotated. There is some obscuration of the right lung base. Central congestion persists. No definite overt failure is seen. No definite effusion or pneumothorax identified. IMPRESSION: Limited study with portable technique. There is cardiomegaly and central congestion. Dictated on workstation # [id number] Dict: 11/25/18 1310 Trans: 11/25/18 1314 [id number] Interpreted by: OG ARMENTA MD Electronically signed by: Departure Communication (Admissions) Time/Spoke to Admitting Phy: 14:18 Time/Spoke to Consulting Phy: 13:18 Impression Primary Impression: Obesity hypoventilation syndrome Additional Impressions: Hypercapnia Volume overload Qualified Codes: E87.70 - Fluid overload, unspecified Disposition: 09 ADMITTED INPATIENT Condition: Stable Admissions Decision to Admit Reason: Admit from ER (General) Decision to Admit/Date: Nov 25, 2018 Time/Decision to Admit Time: 13:18 Departure-Patient Inst. Referrals: NITO TREVIÑO MD (PCP/Family) Primary Care Physician RICKY SERRA MD Nov 25, 2018 13:38
[2018-11-25 14:18] LABS: BILIRUBIN,URINE NEGATIVE (NEGATIVE); CLARITY,URINE CLEAR; COLOR,URINE YELLOW; GLUCOSE, URINE (UA) NEGATIVE (NEGATIVE); KETONES,URINE NEGATIVE (NEGATIVE); LEUKOCYTE ESTERASE ,URINE 1+ (NEGATIVE); NITRITE,URINE NEGATIVE (NEGATIVE); PH,URINE 6 (5-9); PROTEIN,URINE 2+ (NEGATIVE); UROBILINOGEN,URINE NORMAL (NORMAL)
[2018-11-25] MEDS ORDERED: FUROSEMIDE 40 MG/4 ML INJ (LASIX) IV STA (14:21)
[2018-11-25 14:29] LABS: BACTERIA,URINE NEGATIVE /HPF; SQUAMOUS EPITHELIAL CELL,UR RARE /HPF; WBC,URINE RARE /HPF
--- NOTE | 2018-11-25 14:30 | NUR ---
300 ML CLEAR YELLOW URINE EMPTIED FROM URINAL AT THIS TIME.
--- NOTE | 2018-11-25 15:04 | NUR ---
650 ML CLEAR YELLOW URINE EMPTIED FROM URINAL AT THIS TIME.
--- NOTE | 2018-11-25 15:34 | NUR ---
650 ML CLEAR YELLOW URINE EMPTIED FROM URINAL AT THIS TIME.
[2018-11-25 16:36] VITALS: BP 137/77
[2018-11-25] MEDS ORDERED: CATHETER FLUSH 10 ML SYR IV PRN (17:00)
[2018-11-25 17:01] VITALS: BP 137/77
[2018-11-25 17:03] VITALS: BP 137/77
[2018-11-25] MEDS ORDERED: RT-ALBUTEROL/IPRATROPIUM 3 ML (DUONEB) VIAL INH PRN (17:15)
[2018-11-25] MEDS: RT-ALBUTEROL/IPRATROPIUM 3 ML (DUONEB) VIAL INH SCH ×2 (19:20→23:00)
[2018-11-25 20:35] VITALS: BP 118/58
[2018-11-25] MEDS: FUROSEMIDE 40 MG/4 ML INJ (LASIX) IV SCH (21:22)
--- NOTE | 2018-11-25 21:22 | History & Physicial ---
History of Present Illness History of Present Illness Reason for visit/HPI PT IS A 63 Y/O MALE WHO IS GROSSLY MORBIDLY OBESE - HE HAS NOT BEEN ABLE TO CARE FOR HIMSELF VERY WELL AT HOME WITH HIS PROVIDING A MAJORITY OF HIS DAILY CARE NEEDS. HE WAS LAST SEEN IN 2017 IN THE HOSPITAL, HE IS APPARENTLY UNABLE TO AMBULATE OR GET INTO A VEHICLE TO BE BROUGHT TO THE OFFICE DUE TO HIS WEIGHT AND SEVERE KNEE AND LOWER LEG PAIN. PT REPORTS THAT HE PRESENTED TO THE HOSPITAL DUE TO PAIN IN HIS LOWER EXTREMITIES AND TROUBLE BREATHING. HE REPORTS THAT HE HAS CHRONIC SHORTNESS OF BREATH, AND HE HAS BEEN USING HIS OXYGEN CHRONICALLY PRESCRIBED. Date of Admission Nov 25, 2018 at 14:27 Date Seen by a Provider: Nov 25, 2018 Time Seen by a Provider: 20:40 I consulted on this patient on 11/25/182039 Attending Physician Nito Treviño MD Admitting Physician Nito Treviño MD Consult PULMONOLOGY Allergies and Home Medications Allergies Coded Allergies: aspirin (Verified Adverse Reaction, Intermediate, CHEST PAIN, 01/22/13) Home Medications Furosemide 20 Mg Tablet, 20 MG PO UD GIVE AT 5PM DAILY X 2 WEEKS THEN NEEDED FOR INCREASED EDEMA THROUGHOUT THE DAY Prescribed by: NITO TREVIÑO on 02/04/17841 Furosemide 40 Mg Tablet, 40 MG PO DAILY Prescribed by: NITO TREVIÑO on 02/04/17841 Gabapentin 800 Mg Tablet, 800 MG PO TID, (Reported) Hydrocodone/Acetaminophen 1 Each Tablet, 2 TAB PO Q6H PRN for PAIN-MODERATE, (Reported) Insulin NPH Hum/Reg Insulin Hm 100 Unit/1 Ml Vial, 100 UNITS SQ HS, (Reported) Insulin NPH Hum/Reg Insulin Hm 100 Unit/1 Ml Vial, 50 UNIT SQ DAILY PRN for BS ABOVE 150, (Reported) Morphine Sulfate 15 Mg Tablet, 15 MG PO BID PRN for PAIN-SEVERE, (Reported) Potassium Chloride 10 Meq Tablet.er, 10 MEQ PO UD TAKE FOUR TIMES A WEEK Prescribed by: NITO TREVIÑO on 02/04/17841 Patient Home Medication List Home Medication List Reviewed: Yes Past Xhmocwq-Msrnbb-Rstier Hx Patient Social History Marrital Status: Number of Children: 1 Number of living children: 0 Living Status: LIVES AT HOME WITH HIS Employed/Student: unemployed Alcohol Use: Denies Use Recreational Drug Use: No Smoking Status: Former Smoker Former Smoker, Quit: Dec 07, 1994 2nd Hand Smoke Exposure: No Physical Abuse Screen: No Sexual Abuse: No Recent Foreign Travel: No Contact w/other who traveled: No Recent Hopitalizations: No Recent Infectious Disease Expo: No Immunizations Up To Date Tetanus Booster (TDap): Unknown Pediatric: Yes Date of Pneumonia Vaccine: Jan 24, 2016 Seasonal Allergies Seasonal Allergies: No 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) Ear Surgery, Tonsillectomy Respiratory Yes COPD, Sleep Apnea Currently Using CPAP: No Currently Using BIPAP: No Cardiovascular Yes (CARDIOMEGALY, CHF) Chronic Edema/Swelling, High Cholesterol, Hypertension Neurological Yes (NEUROPATHY FINGERS/FEET) Neuropathy Reproductive System Hx Reproductive Disorders: No Sexually Transmitted Disease: No HIV/AIDS: No Genitourinary Yes UTI-Chronic Gastrointestinal Yes (HX OF CDIFF) Abdominal Hernia Musculoskeletal Yes (HERINATED CERVICAL DISK, CHRONIC BILATERAL KNEE PAIN ) Arthritis Endocrine History of Endocrine Disorders: Yes (TYPE II; MORBID OBESITY) Endocrine Disorders: Diabetes, Insulin dep HEENT History of HEENT Disorders: No Loss of Vision: Denies Hearing Impairment: Denies Cancer No Psychosocial History of Psychiatric Problem: No Integumentary History of Skin or Integumenta: Yes (CELLULITIS OF LEGS AND PANNUS ) Blood Transfusions History of Blood Disorders: No Reviewed Nursing Assessment Reviewed/Agree w Nursing PMH: Yes Family Medical History Significant Family History: Heart Disease, Diabetes, Hypertension Family Hx: Cardiovascular disease 19 MOTHER Diabetes mellitus 19 MOTHER FH: stomach cancer 19 FATHER Hypercholesterolemia Hypertension 19 MOTHER Kidney disease Myocardial infarction 19 MOTHER Osteoporosis 19 FATHER Review of Systems Constitutional: No chills, No diaphoresis, No fever; malaise, weakness EENTM: No hoarseness, No throat pain Respiratory: No cough; dyspnea on exertion, short of breath Cardiovascular: No chest pain; edema (FROM TOES TO UPPER ABDOMEN); No palpitations Gastrointestinal: No abdominal pain, No nausea, No vomiting Genitourinary: no symptoms reported Musculoskeletal: joint pain, muscle weakness Skin: change in color (HEMOSIDERAN PIGMENT CHANGES); No rash Psychiatric/Neurological: Denies Anxiety; Numbness, Weakness All Other Systems Reviewed Negative Unless Noted: Yes Physical Exam Vital Signs Vital Signs - First Documented 11/25/18 11/25/18 12:25 12:41 Temp 99.5 Pulse 82 Resp 20 B/P (MAP) 133/72 (92) Pulse Ox 96 O2 Delivery Nasal Cannula O2 Flow Rate 4.00 Capillary Refill : Less Than 3 Seconds Height, Weight, BMI Height: 5'10.00" Weight: 553lbs. 1.0oz. 250.209256pw; 79.4 BMI Method:Actual General Appearance: No Apparent Distress, Obese Eyes: Bilateral Eye Normal Inspection, Bilateral Eye PERRL, Bilateral Eye EOMI HEENT: PERRL/EOMI, Pharynx Normal Neck: Full Range of Motion, Non Tender, Supple Respiratory: Chest Non Tender, Lungs Clear, Normal Breath Sounds, Other (VERY DIFFICULT TO HEAR DUE TO THE PATIENTS MORBID OBESITY) Cardiovascular: Regular Rate, Rhythm, Other (EDEMA FROM TOES TO HIS) Gastrointestinal: Normal Bowel Sounds, No Organomegaly, No Pulsatile Mass, Non Tender, Soft Rectal: Deferred Extremity: Other (EDEMA OF BILATERAL LOWER EXTREMITIES WITH GROSS DEFORMITY DUE TO THE SEVERE CHRONIC EDEMA, 4+ PITTING FROM ANKLES TO LOWER ABDOMEN WITH INABILITY TO SEE HIS GENITALIA DUE TO THE PANUS AND SEVERE EDEMA) Neurologic/Psychiatric: Alert, Oriented x3, No Motor/Sensory Deficits, 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 - WE WILL CONTINUE WITH GENTLE LASIX USE AND FLUID RESTRICTION WITH LOWER EXTREMITY ELEVATION. DYSPNEA DUE TO OBESITY RELATED HYPOVENTILATION - DR. CABEZAS WILL SEE THE PT TO SEE IF HE WILL QUALIFY FOR [id number] TREATMENT. URINARY RETENTION -RESOLVED AFTER LASIX DOSING - MONITOR I/O. HYPOXEMIA - CHRONIC - PT ON CHRONIC OXYGEN THERAPY AT HOME. LOWER EXTREMITY EDEMA WITH SEVERE LYMPHEDEMA DUE TO OBESITY - SUPPORTIVE CARE AND LASIX TREATMENT. ANEMIA OF CHRONIC DISEASE - SUPPORTIVE CARE ONLY. Admission Diagnosis FLUID OVERLOAD DYSPNEA URINARY RETENTION OBESITY RELATED HYPOVENTILATION HYPOXEMIA LOWER EXTREMITY EDEMA LYMPHEDEMA DUE TO OBESITY ANEMIA OF CHRONIC DISEASE Admission Status: Inpatient Order (span 2 midnights) Reason for Inpatient Admission: FLUID OVERLOAD AND DYSPNEA - WILL NEED AT LEAST TWO MIDNIGHTS TO STABILIZE PT, MONITOR OUTPUT AND MAKE PLANS FOR DISCHARGE - ANTICIPATE DISCHARGE Thursday IF HIS SYMPTOMS STABILIZE TONIGHT Clinical Quality Measures DVT/VTE Risk/Contraindication: Risk Factor Score Per Nursin RFS Level Per Nursing on Admit: 4+=Very High NITO TREVIÑO MD Nov 25, 2018 21:22
[2018-11-25] MEDS: CATHETER FLUSH 10 ML SYR IV SCH (21:23)
[2018-11-26 01:15] VITALS: BP 149/74
[2018-11-26] MEDS: RT-ALBUTEROL/IPRATROPIUM 3 ML (DUONEB) VIAL INH SCH ×5 (02:47→19:01)
[2018-11-26 04:00] VITALS: BP 168/86
[2018-11-26 06:51] LABS: BASOPHILS % (AUTO) 0 % (0-10); EOSINOPHILS # (AUTO) 0.2 10^3/uL (0.0-0.3); EOSINOPHILS % (AUTO) 3 % (0-10); HEMATOCRIT 39 % (40-54); HEMOGLOBIN 10.7 G/DL (13.3-17.7); LYMPHOCYTES # (AUTO) 0.9 X 10^3 (1.0-4.0); LYMPHOCYTES % (AUTO) 12 % (12-44); MEAN CORPUSCULAR HEMOGLOBIN 25 PG (25-34); MEAN CORPUSCULAR HGB CONC 27 G/DL (32-36); MEAN CORPUSCULAR VOLUME 93 FL (80-99); MEAN PLATELET VOLUME 11.4 FL (7.4-10.4); MONOCYTES # (AUTO) 0.7 X 10^3 (0.0-1.0); MONOCYTES % (AUTO) 10 % (0-12); NEUTROPHILS # (AUTO) 5.5 X 10^3 (1.8-7.8); NEUTROPHILS % (AUTO) 75 % (42-75); PLATELET COUNT 202 10^3/uL (130-400); RED CELL DISTRIBUTION WIDTH 15.3 % (10.0-14.5); WHITE BLOOD COUNT 7.3 10^3/uL (4.3-11.0)
[2018-11-26] MEDS: FUROSEMIDE 40 MG/4 ML INJ (LASIX) IV SCH ×2 (07:09→17:19)
[2018-11-26 07:10] LABS: ALANINE AMINOTRANSFERASE 8 U/L (0-55); ALBUMIN 3.1 GM/DL (3.2-4.5); ALKALINE PHOSPHATASE 80 U/L (40-136); BILIRUBIN,TOTAL 0.4 MG/DL (0.1-1.0); BUN/CREATININE RATIO 19; CALCIUM 8.9 MG/DL (8.5-10.1); CARBON DIOXIDE 42 MMOL/L (21-32); CHLORIDE 88 MMOL/L (98-107); CREATININE SERUM 0.85 MG/DL (0.60-1.30); GFR ESTIMATED > 60; GLUCOSE 104 MG/DL (70-105); POTASSIUM 4.2 MMOL/L (3.6-5.0); SODIUM 142 MMOL/L (135-145); TOTAL PROTEIN 6.2 GM/DL (6.4-8.2)
[2018-11-26] MEDS: CATHETER FLUSH 10 ML SYR IV SCH ×3 (07:10→21:12)
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
--- NOTE | 2018-11-26 08:13 | Progress Note ---
Subjective Date Seen by a Provider: Nov 26, 2018 Time Seen by a Provider: 08:00 Subjective/Events-last exam PT REPORTS THAT HE DOES FEEL A LITTLE LESS SHORT OF BREATH. HE REPORTS THAT HE HAS HAD SIGNIFICANT URINARY OUTPUT AND NEEDS TO URINATE AT THIS TIME WHILE I AM IN THE ROOM. I HAD HELP WITH THIS, BUT HE HAS SUCH SEVERE EDEMA, WE CANNOT PLACE A CATHETER - HE HAD 900ML OF URINE OUTPUT. CARE FOR THE PATIENT IS EXTREMELY DIFFICULT DUE TO THE SEVERE MORBID OBESITY AND THE WEIGHT OF HIS PANUS AND HIS LEGS. Review of Systems General: Fatigue Pulmonary: Dyspnea; No Cough Cardiovascular: No: Chest Pain, Palpitations Gastrointestinal: No: Nausea Genitourinary: Frequency, Incontinence Musculoskeletal: leg pain, foot pain Neurological: Weakness; No: Confusion Focused Exam Lactate Level 11/25/18 12:36: Lactic Acid Level 0.76 Objective Exam Last Set of Vital Signs Vital Signs Date Time Temp Pulse Resp B/P (MAP) Pulse Ox O2 Delivery O2 Flow Rate FiO2 11/26/18 06:51 96 Nasal Cannula 3.50 11/26/18 04:00 96.8 93 21 168/86 (113) Capillary Refill : Less Than 3 Seconds I&O Intake and Output 11/26/18 00:00 Intake Total 350 ml Output Total 2000 ml Balance -1650 ml Intake Oral 350 ml Output Urine Total 2000 ml # Voids 1 Daily Weight Change No No General: Alert, Oriented X3, Cooperative HEENT: Atraumatic Lungs: Clear to Auscultation (DIFFICULT TO HEAR DUE TO THE PATIENT'S OBESITY) Heart: Regular Rate Abdomen: Normal Bowel Sounds, Soft Extremities: Other (EDEMA BILATERAL LOWER EXTREMITIES FROM THE FEET TO HIS ABDOMEN) Psych/Mental Status: Mental Status NL, Other (FLAT AFFECT, IRRITABLE) Results Lab Laboratory Tests 11/25/18 12:36: White Blood Count 8.1, Red Blood Count 4.31L, Hemoglobin 11.2L, Hematocrit 41, Mean Corpuscular Volume 94, Mean Corpuscular Hemoglobin 26, Mean Corpuscular Hemoglobin Concent 28L, Red Cell Distribution Width 14.9H, Platelet Count 184, Mean Platelet Volume 11.0H, Neutrophils (%) (Auto) 74, Lymphocytes (%) (Auto) 13, Monocytes (%) (Auto) 10, Eosinophils (%) (Auto) 3, Basophils (%) (Auto) 0, Neutrophils # (Auto) 6.0, Lymphocytes # (Auto) 1.1, Monocytes # (Auto) 0.8, Eosinophils # (Auto) 0.3, Basophils # (Auto) 0.0, Prothrombin Time 13.6, INR Comment 1.0, Activated Partial Thromboplast Time 33, Sodium Level 137, Potassium Level 5.0, Chloride Level 88L, Carbon Dioxide Level 41H, Anion Gap 8, Blood Urea Nitrogen 17, Creatinine 0.85, Estimat Glomerular Filtration Rate > 60, BUN/Creatinine Ratio 20, Glucose Level 85, Lactic Acid Level 0.76, Calcium Level 8.8, Corrected Calcium 9.4, Total Bilirubin 0.3, Aspartate Amino Transf (AST/SGOT) 23, Alanine Aminotransferase (ALT/SGPT) 7, Alkaline Phosphatase 77, B-Type Natriuretic Peptide 212.5H, Total Protein 6.7, Albumin 3.2 11/25/18 12:45: Blood Gas Puncture Site RIGHT RADIAL, Blood Gas Patient Temperature 99.5, Arterial Blood pH 7.36L, Arterial Blood Partial Pressure CO2 85*H, Arterial Blood Partial Pressure O2 101H, Arterial Blood HCO3 47*H, Arterial Blood Total CO2 49.1H, Arterial Blood Oxygen Saturation 98, Arterial Blood Base Excess 20.1H , Ubaldo Test POSITIVE, Blood Gas Ventilator Setting NO, Blood Gas Inspired Oxygen 4 L 11/25/18 14:05: Urine Color YELLOW, Urine Clarity CLEAR, Urine pH 6, Urine Specific [place] 1.015L, Urine Protein 2+H, Urine Glucose (UA) NEGATIVE, Urine Ketones NEGATIVE, Urine Nitrite NEGATIVE, Urine Bilirubin NEGATIVE, Urine Urobilinogen NORMAL, Urine Leukocyte Esterase 1+H, Urine RBC (Auto) NEGATIVE, Urine RBC NONE, Urine WBC RARE, Urine Squamous Epithelial Cells RARE, Urine Crystals NONE, Urine Bacteria NEGATIVE, Urine Casts NONE, Urine Mucus NEGATIVE, Urine Culture Indicated CULTURE PENDING 11/26/18 05:33: Sodium Level 142, Potassium Level 4.2, Chloride Level 88L, Carbon Dioxide Level 42H, Anion Gap 12, Blood Urea Nitrogen 16, Creatinine 0.85, Estimat Glomerular Filtration Rate > 60, BUN/Creatinine Ratio 19, Glucose Level 104, Calcium Level 8.9, Corrected Calcium 9.6, Total Bilirubin 0.4, Aspartate Amino Transf (AST/SGOT) 14, Alanine Aminotransferase (ALT/SGPT) 8, Alkaline Phosphatase 80, Total Protein 6.2L, Albumin 3.1L 11/26/18 05:50: White Blood Count 7.3, Red Blood Count 4.26L, Hemoglobin 10.7L, Hematocrit 39L, Mean Corpuscular Volume 93, Mean Corpuscular Hemoglobin 25, Mean Corpuscular Hemoglobin Concent 27L, Red Cell Distribution Width 15.3H, Platelet Count 202, Mean Platelet Volume 11.4H, Neutrophils (%) (Auto) 75, Lymphocytes (%) (Auto) 12, Monocytes (%) (Auto) 10, Eosinophils (%) (Auto) 3, Basophils (%) (Auto) 0, Neutrophils # (Auto) 5.5, Lymphocytes # (Auto) 0.9L, Monocytes # (Auto) 0.7, Eosinophils # (Auto) 0.2, Basophils # (Auto) 0.0 Assessment/Plan Assessment/Plan Assess & Plan/Chief Complaint FLUID OVERLOAD DYSPNEA URINARY RETENTION OBESITY RELATED HYPOVENTILATION HYPOXEMIA LOWER EXTREMITY EDEMA LYMPHEDEMA DUE TO OBESITY ANEMIA OF CHRONIC DISEASE FLUID OVERLOAD - CHRONIC IN NATURE - LAST ADMISSION FOUND PT TO LOOSE ALMOST 100# WITH THE LASIX. - WE WILL CONTINUE WITH GENTLE LASIX USE AND FLUID RESTRICTION WITH LOWER EXTREMITY ELEVATION. - PT WAS IRRITATED THIS MORNING BECAUSE HE HAS ONLY LOST ABOUT 7 POUNDS DURING THIS HOSPITALIZATION. HE IS ALREADY ASKING WHEN HE WILL BE DISCHARGED TO HOME. I HAVE EXPLAINED TO LANCE THAT HE HAS ONLY HAD TWO DOSES OF LASIX WITH THE 7 POUND WEIGHT LOSS - HE NEEDS TO BE PATIENT, BUT HE WAS SOMEWHAT IRRITATED WITH THE PROGRESS THAT HAS HAPPENED THUS FAR. DYSPNEA DUE TO OBESITY RELATED HYPOVENTILATION - DR. CABEZAS HAS SEEN THE PT THIS MORNING AND HE FEELS LIKE HE WILL QUALIFY FOR [id number] TREATMENT. URINARY RETENTION -RESOLVED AFTER LASIX DOSING - MONITOR I/O. HYPOXEMIA - CHRONIC - PT ON CHRONIC OXYGEN THERAPY AT HOME. LOWER EXTREMITY EDEMA WITH SEVERE LYMPHEDEMA DUE TO OBESITY - SUPPORTIVE CARE AN D LASIX TREATMENT. ANEMIA OF CHRONIC DISEASE - SUPPORTIVE CARE ONLY. Clinical Quality Measures Admission Status Admission Dx FLUID OVERLOAD DYSPNEA URINARY RETENTION OBESITY RELATED HYPOVENTILATION HYPOXEMIA LOWER EXTREMITY EDEMA LYMPHEDEMA DUE TO OBESITY ANEMIA OF CHRONIC DISEASE DVT/VTE Risk/Contraindication: Risk Factor Score Per Nursin RFS Level Per Nursing on Admit: 4+=Very High NITO NICOLAS MD Nov 26, 2018 08:13
[2018-11-26 08:42] VITALS: BP 140/67
[2018-11-26] MEDS: GABAPENTIN 400 MG (NEURONTIN) CAP PO SCH ×3 (09:59→21:11)
[2018-11-26] MEDS ORDERED: LEVO50TA6 PO (11:05)
[2018-11-26] MEDS ORDERED: POTA20TA15 PO (11:05)
[2018-11-26] MEDS ORDERED: FURO40TA4 PO (11:05)
[2018-11-26] MEDS ORDERED: NYST15PO2 TOP (11:08)
[2018-11-26] MEDS ORDERED: DOCU-143 PO (11:08)
[2018-11-26] MEDS ORDERED: MULT1TAB69 PO (11:08)
[2018-11-26] MEDS ORDERED: IPRA3AMP31 NEB (11:12)
--- NOTE | 2018-11-26 11:13 | NUR ---
CALLED AND SPOKE WITH THE PATIENTS REGARDING MEDICATIONS. SHE LISTED WHAT SHE GIVES HIM. HE TAKES A MTV AND 2 COLACE DAILY OTC. SHE STATES HE TAKES FUROSEMIDE 80MG DAILY AND POTASSIUM 20MEQ DAILY, THESE WERE NOT SHOWN RECENTLY FILLED ON THE EXT MED HX BUT SHE STATES SHE WAS GETTING THEM FROM A MAIL ORDER PHARMAC[facility] AND SHE HAS A SUPPLY BUILT UP ON HAND SHE USES. I REPORTED THEM ON THE MED REC LIKE SHE STATES.
[2018-11-26 12:59] VITALS: BP 154/57
[2018-11-26] MEDS: HYDROcodone/APAP 7.5 MG/325 MG (LORTAB, LORCET PLUS) TABLET PO PRN (15:08)
[2018-11-26 16:22] VITALS: BP 145/76
[2018-11-26 19:55] VITALS: BP 179/72
[2018-11-27] VITALS: BP 137/79
[2018-11-27] MEDS: RT-ALBUTEROL/IPRATROPIUM 3 ML (DUONEB) VIAL INH SCH ×6 (02:40→21:57)
[2018-11-27 04:00] VITALS: BP 155/82
[2018-11-27 06:07] LABS: HEMOGLOBIN 10.7 G/DL (13.3-17.7); MEAN PLATELET VOLUME 11.1 FL (7.4-10.4); RED CELL DISTRIBUTION WIDTH 15.4 % (10.0-14.5); WHITE BLOOD COUNT 7.9 10^3/uL (4.3-11.0)
[2018-11-27] MEDS: CATHETER FLUSH 10 ML SYR IV SCH ×3 (06:24→20:45)
[2018-11-27] MEDS: FUROSEMIDE 40 MG/4 ML INJ (LASIX) IV SCH ×2 (06:24→17:15)
[2018-11-27 06:28] LABS: ALANINE AMINOTRANSFERASE 6 U/L (0-55); ALBUMIN 3.1 GM/DL (3.2-4.5); ALKALINE PHOSPHATASE 65 U/L (40-136); BILIRUBIN,TOTAL 0.5 MG/DL (0.1-1.0); BUN/CREATININE RATIO 16; CALCIUM 8.7 MG/DL (8.5-10.1); CARBON DIOXIDE 44 MMOL/L (21-32); CHLORIDE 88 MMOL/L (98-107); CREATININE SERUM 0.85 MG/DL (0.60-1.30); GFR ESTIMATED > 60; GLUCOSE 137 MG/DL (70-105); POTASSIUM 3.9 MMOL/L (3.6-5.0); SODIUM 143 MMOL/L (135-145); TOTAL PROTEIN 6.1 GM/DL (6.4-8.2)
--- NOTE | 2018-11-27 06:31 | Pulmonary Progress Note ---
Subjective Time Seen by a Provider: 07:28 Subjective/Events-last exam Pt feels better. Still c/o SOB. Sepsis Event Evaluation Height, Weight, BMI Height: 5'10.00" Weight: 538lbs. 6.0oz. 244.967861rk; 79.4 BMI Method:Actual Focused Exam Lactate Level 11/25/18 12:36: Lactic Acid Level 0.76 Exam Exam Vital Signs Date Time Temp Pulse Resp B/P (MAP) Pulse Ox O2 Delivery O2 Flow Rate FiO2 11/27/18 04:00 97.8 86 20 155/82 (106) 93 Nasal Cannula 2.00 11/27/18 02:40 93 Nasal Cannula 2.00 11/27/18 00:00 97.6 95 16 137/79 (98) 94 Nasal Cannula 2.00 11/26/18 20:00 95 Nasal Cannula 2.00 11/26/18 19:55 97.4 97 20 179/72 (107) 92 Nasal Cannula 2.00 11/26/18 19:01 94 Nasal Cannula 2.00 11/26/18 16:22 97.9 100 20 145/76 (99) 93 Nasal Cannula 3.50 11/26/18 14:41 93 Nasal Cannula 3.50 11/26/18 12:59 97.4 107 22 154/57 (89) 92 Nasal Cannula 3.50 11/26/18 11:03 94 Nasal Cannula 3.50 11/26/18 08:42 96.9 108 22 140/67 (91) 92 Nasal Cannula 3.50 11/26/18 08:00 95 Nasal Cannula 2.00 11/26/18 06:51 96 Nasal Cannula 3.50 I & O 11/27/18 07:00 Intake Total 550 ml Output Total 5250 ml Balance -4700 ml Height & Weight Height: 5'10.00" Weight: 538lbs. 6.0oz. 244.961969xp; 79.4 BMI Method:Actual General Appearance: No Apparent Distress, Obese HEENT: PERRL/EOMI, Pharynx Normal Neck: Full Range of Motion, Non Tender, Supple Respiratory: Chest Non Tender, Lungs Clear, Normal Breath Sounds, Other (VERY DIFFICULT TO HEAR DUE TO THE PATIENTS MORBID OBESITY) Cardiovascular: Regular Rate, Rhythm, Other (EDEMA FROM TOES TO HIS) Capillary Refill: Less Than 3 Seconds Gastrointestinal: non tender, soft Extremity: Other (EDEMA OF BILATERAL LOWER EXTREMITIES WITH GROSS DEFORMITY DUE TO THE SEVERE CHRONIC EDEMA, 4+ PITTING FROM ANKLES TO LOWER ABDOMEN WITH INABILITY TO SEE HIS GENITALIA DUE TO THE PANUS AND SEVERE EDEMA) Neurologic/Psychiatric: Alert, Oriented x3, No Motor/Sensory Deficits, 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 -ABG - C02 85 -I discussed with Dr. Treviño, patient and . Morbid obesity with OHS -Pt will benefit from home vent to mask Probable Cor pulmonale and diastolic CHF -ECho is limited secondary to body habitus Pulmonary edema -Lasix - continue 40 BID -BNP is 212 Anemia -Monitor LOUIS CABEZAS DO Nov 27, 2018 06:31
[2018-11-27 07:52] VITALS: BP 119/63
[2018-11-27] MEDS: GABAPENTIN 400 MG (NEURONTIN) CAP PO SCH ×3 (08:53→20:42)
[2018-11-27] MEDS: KCL 20 MEQ TAB (K-DUR) PO SCH (08:54)
--- NOTE | 2018-11-27 11:07 | Progress Note - Hospitalist ---
Subjective HPI/CC On Admission Date Seen by Provider: Nov 27, 2018 Time Seen by Provider: 10:00 Subjective/Events-last exam Patient denies shortness of breath or chest pain staff reports that he has been alert and oriented reports mild cough nonproductive no night sweats chills or fever. He denies leg pain. Focused Exam Lactate Level 11/25/18 12:36: Lactic Acid Level 0.76 Objective Exam Vital Signs Vital Signs Date Time Temp Pulse Resp B/P (MAP) Pulse Ox O2 Delivery O2 Flow Rate FiO2 11/27/18 09:46 90 Nasal Cannula 2.00 11/27/18 07:52 97.5 94 22 119/63 (81) Capillary Refill : Less Than 3 Seconds General Appearance: No Apparent Distress, Obese HEENT: PERRL/EOMI Neck: Full Range of Motion, Non Tender, Supple Respiratory: Chest Non Tender, Lungs Clear, Normal Breath Sounds, Other (VERY DIFFICULT TO HEAR DUE TO THE PATIENTS MORBID OBESITY) Cardiovascular: Regular Rate, Rhythm, No Murmur Gastrointestinal: Normal Bowel Sounds, No Organomegaly, No Pulsatile Mass, Non Tender, Soft Rectal: Deferred Extremity: Other (Chronic rather severe changes of venous insufficiency related dermatitis minimal erythema at the upper margin withtenderness. Parts of the wounds are still moist. There is no drainage and no open ulceration.) Neurologic/Psychiatric: Alert, Oriented x3, Other (IRRITABLE) Skin: Other (HEMOSIDERAN PIGMENT CHANGES) Lymphatic: No Adenopathy Results/Procedures Lab Laboratory Tests 11/27/18 05:15 Patient resulted labs reviewed. Assessment/Plan Assessment and Plan Assess & Plan/Chief Complaint 1. Acute on chronic hypercapnic respiratory failure secondary to obesity hypoventilation syndrome with secondary volume overload. Continue Lasix. 2. Morbid obesity long-term prognosis poor. 3. Stable anemia of chronic disease likely due to underlying severe venous insufficiency as a result of his morbid obesity. Clinical Quality Measures DVT/VTE Risk/Contraindication: Risk Factor Score Per Nursin RFS Level Per Nursing on Admit: 4+=Very High HUMERA FAY MD Nov 27, 2018 11:07
[2018-11-27 16:30] VITALS: BP 117/61
[2018-11-27] MEDS: HYDROcodone/APAP 7.5 MG/325 MG (LORTAB, LORCET PLUS) TABLET PO PRN (18:07)
[2018-11-28 00:44] VITALS: BP 152/78
[2018-11-28] MEDS: RT-ALBUTEROL/IPRATROPIUM 3 ML (DUONEB) VIAL INH SCH ×6 (03:57→22:45)
[2018-11-28 05:12] LABS: HEMOGLOBIN 10.4 G/DL (13.3-17.7); MEAN PLATELET VOLUME 10.5 FL (7.4-10.4); RED CELL DISTRIBUTION WIDTH 15.6 % (10.0-14.5); WHITE BLOOD COUNT 7.9 10^3/uL (4.3-11.0)
[2018-11-28 05:32] LABS: ALANINE AMINOTRANSFERASE 8 U/L (0-55); ALKALINE PHOSPHATASE 62 U/L (40-136); BILIRUBIN,TOTAL 0.5 MG/DL (0.1-1.0); BUN/CREATININE RATIO 15; CALCIUM 8.6 MG/DL (8.5-10.1); CARBON DIOXIDE 41 MMOL/L (21-32); CHLORIDE 90 MMOL/L (98-107); CREATININE SERUM 0.85 MG/DL (0.60-1.30); GFR ESTIMATED > 60; GLUCOSE 135 MG/DL (70-105); MAGNESIUM 1.9 MG/DL (1.8-2.4); SODIUM 142 MMOL/L (135-145); TOTAL PROTEIN 6.1 GM/DL (6.4-8.2)
[2018-11-28] MEDS: FUROSEMIDE 40 MG/4 ML INJ (LASIX) IV SCH ×2 (05:47→17:53)
[2018-11-28] MEDS: CATHETER FLUSH 10 ML SYR IV SCH ×3 (05:47→20:04)
[2018-11-28] MEDS: KCL 20 MEQ TAB (K-DUR) PO SCH (06:00)
--- NOTE | 2018-11-28 07:29 | Pulmonary Progress Note ---
Subjective Time Seen by a Provider: 07:29 Subjective/Events-last exam PT used vent to mask last night. Sepsis Event Evaluation Height, Weight, BMI Height: 5'10.00" Weight: 494lbs. 2.0oz. 224.951703rt; 79.4 BMI Method:Actual Focused Exam Lactate Level 11/25/18 12:36: Lactic Acid Level 0.76 Exam Exam Vital Signs Date Time Temp Pulse Resp B/P (MAP) Pulse Ox O2 Delivery O2 Flow Rate FiO2 11/28/18 06:43 74 15 93 35.00 11/28/18 04:11 88 16 95 30.00 11/28/18 00:44 97.0 91 20 152/78 (102) 94 Nasal Cannula 2.00 11/28/18 00:20 90 17 93 30.00 11/27/18 21:58 92 Nasal Cannula 2.00 11/27/18 20:00 95 Nasal Cannula 2.00 11/27/18 16:30 97.8 97 20 117/61 (79) 93 Nasal Cannula 2.00 11/27/18 15:02 90 Nasal Cannula 2.00 11/27/18 09:46 90 Nasal Cannula 2.00 11/27/18 08:00 95 Nasal Cannula 2.00 11/27/18 07:52 97.5 94 22 119/63 (81) 92 Nasal Cannula 2.00 I & O 11/28/18 07:00 Intake Total 750 ml Output Total 4200 ml Balance -3450 ml Height & Weight Height: 5'10.00" Weight: 494lbs. 2.0oz. 224.493486jd; 79.4 BMI Method:Actual General Appearance: No Apparent Distress, Obese HEENT: PERRL/EOMI, Pharynx Normal Neck: Full Range of Motion, Non Tender, Supple Respiratory: Chest Non Tender, Lungs Clear, Normal Breath Sounds, Other (VERY DIFFICULT TO HEAR DUE TO THE PATIENTS MORBID OBESITY) Cardiovascular: Regular Rate, Rhythm, Other (EDEMA FROM TOES TO HIS) Capillary Refill: Less Than 3 Seconds Gastrointestinal: non tender, soft Extremity: Other (EDEMA OF BILATERAL LOWER EXTREMITIES WITH GROSS DEFORMITY DUE TO THE SEVERE CHRONIC EDEMA, 4+ PITTING FROM ANKLES TO LOWER ABDOMEN WITH INABILITY TO SEE HIS GENITALIA DUE TO THE PANUS AND SEVERE EDEMA) Neurologic/Psychiatric: Alert, Oriented x3, No Motor/Sensory Deficits, clinical courier II- XII Norm as Tested, Other (IRRITABLE) Skin: Other (HEMOSIDERAN PIGMENT CHANGES) Lymphatic: No Adenopathy Results Lab Laboratory Tests 11/27/18 05:15 11/28/18 04:51 Assessment/Plan Assessment/Plan Acute on Chronic respiratory failure -Vent to mask QHS -Will try to get patient a home vent to mask with goal of prolonging life, improving heart function and decreasing hospitalizations. -ABG - C02 85 Morbid obesity with OHS -Pt will benefit from home vent to mask Probable Cor pulmonale and diastolic CHF -ECho is limited secondary to body habitus Pulmonary edema -Lasix - continue 40 BID -BNP is 212 Anemia -Monitor LOUIS CABEZAS DO Nov 28, 2018 07:29
[2018-11-28 08:00] VITALS: BP 138/74
[2018-11-28] MEDS: GABAPENTIN 400 MG (NEURONTIN) CAP PO SCH ×3 (09:22→20:03)
--- NOTE | 2018-11-28 11:44 | Progress Note - Hospitalist ---
Subjective HPI/CC On Admission Date Seen by Provider: Nov 28, 2018 Time Seen by Provider: 08:45 Subjective/Events-last exam Patient voices no complaints denies shortness of breath bedfast due to morbid obesity. Denies leg pain or cramping. Focused Exam Lactate Level 11/25/18 12:36: Lactic Acid Level 0.76 Objective Exam Vital Signs Vital Signs Date Time Temp Pulse Resp B/P (MAP) Pulse Ox O2 Delivery O2 Flow Rate FiO2 11/28/18 10:44 93 Nasal Cannula 2.00 11/28/18 08:00 98.8 90 20 138/74 (95) Capillary Refill : Less Than 3 SecondsLess Than 3 Seconds General Appearance: No Apparent Distress, Obese HEENT: PERRL/EOMI, Pharynx Normal Neck: Full Range of Motion, Non Tender, Supple Respiratory: Chest Non Tender, Lungs Clear, Normal Breath Sounds, Other (VERY DIFFICULT TO HEAR DUE TO THE PATIENTS MORBID OBESITY) Cardiovascular: Regular Rate, Rhythm, Other (EDEMA FROM TOES TO HIS) Gastrointestinal: Normal Bowel Sounds, No Organomegaly, No Pulsatile Mass, Non Tender, Soft Rectal: Deferred Extremity: Other (No open sores or weeping skin becoming a little crinkled due to diminishment in edema although still grade is 3+ with severe chronic venous insufficiency change with tree bark appearance.) Neurologic/Psychiatric: Alert, Other (IRRITABLE) Skin: Other (HEMOSIDERAN PIGMENT CHANGES) Lymphatic: No Adenopathy Results/Procedures Lab Laboratory Tests 11/28/18 04:51 Patient resulted labs reviewed. Assessment/Plan Assessment and Plan Assess & Plan/Chief Complaint 1. Acute on chronic hypercapnic respiratory failure secondary to obesity hypoventilation syndrome with secondary volume overload. Continue Lasix IV tell discharge possibly tomorrow although it is likely he is still harboring at least 40 pounds of excess edema. Discussed if he wished to avoid future hospital izations to double up on his diuretic and probably more importantly try to keep to 2-3 L fluid intake restriction. 2. Morbid obesity long-term prognosis poor. 3. Stable anemia of chronic disease likely due to underlying severe venous insufficiency as a result of his morbid obesity no evidence to suggest acute infection at this time. Clinical Quality Measures DVT/VTE Risk/Contraindication: Risk Factor Score Per Nursin RFS Level Per Nursing on Admit: 4+=Very High HUMERA FAY MD Nov 28, 2018 11:44
[2018-11-28 16:18] VITALS: BP_SYST 109; BP_SYST 138; BP_DIAS 59; BP_DIAS 74
[2018-11-29 00:56] VITALS: BP 128/76
[2018-11-29] MEDS: RT-ALBUTEROL/IPRATROPIUM 3 ML (DUONEB) VIAL INH SCH ×4 (02:45→15:20)
[2018-11-29 05:38] LABS: HEMOGLOBIN 10.7 G/DL (13.3-17.7); MEAN PLATELET VOLUME 10.9 FL (7.4-10.4); RED CELL DISTRIBUTION WIDTH 15.6 % (10.0-14.5); WHITE BLOOD COUNT 8.3 10^3/uL (4.3-11.0)
[2018-11-29 05:59] LABS: ALANINE AMINOTRANSFERASE 7 U/L (0-55); ALBUMIN 3.1 GM/DL (3.2-4.5); ALKALINE PHOSPHATASE 65 U/L (40-136); BILIRUBIN,TOTAL 0.5 MG/DL (0.1-1.0); BUN/CREATININE RATIO 14; CALCIUM 8.9 MG/DL (8.5-10.1); CARBON DIOXIDE 39 MMOL/L (21-32); CHLORIDE 90 MMOL/L (98-107); CREATININE SERUM 0.87 MG/DL (0.60-1.30); GFR ESTIMATED > 60; GLUCOSE 134 MG/DL (70-105); SODIUM 142 MMOL/L (135-145); TOTAL PROTEIN 6.3 GM/DL (6.4-8.2)
--- NOTE | 2018-11-29 06:51 | NUR ---
PT REFUSING 0600 AND 0700 MEDICATIONS AT THIS TIME. WILL PASS ON TO DAYSHIFT THAT THE PT STILL NEEDS TO TAKE THEM.
[2018-11-29 08:00] VITALS: BP 128/76
--- NOTE | 2018-11-29 08:00 | Pulmonary Progress Note ---
Subjective Time Seen by a Provider: 07:59 Subjective/Events-last exam SOB is stable. Sepsis Event Evaluation Height, Weight, BMI Height: 5'10.00" Weight: 521lbs. 4.0oz. 236.823793ly; 79.4 BMI Method:Actual Exam Exam Vital Signs Date Time Temp Pulse Resp B/P (MAP) Pulse Ox O2 Delivery O2 Flow Rate FiO2 11/29/18 07:24 95 Nasal Cannula 3.00 11/29/18 02:45 72 20 93 35.00 11/29/18 00:56 97.8 83 20 128/76 (93) 98 Nasal Cannula 2.00 11/29/18 00:27 74 21 95 35.00 11/28/18 22:45 75 19 95 35.00 11/28/18 20:00 Nasal Cannula 2.00 11/28/18 19:05 90 Nasal Cannula 2.00 11/28/18 16:18 90 93 11/28/18 16:18 98.0 92 20 109/59 (76) 93 Nasal Cannula 2.00 11/28/18 10:44 93 Nasal Cannula 2.00 11/28/18 08:00 98.8 90 20 138/74 (95) 94 Nasal Cannula 2.00 11/28/18 08:00 Nasal Cannula 2.00 l I & O 11/29/18 07:00 Intake Total 1100 ml Output Total 2650 ml Balance -1550 ml Height & Weight Height: 5'10.00" Weight: 521lbs. 4.0oz. 236.465030ax; 79.4 BMI Method:Actual General Appearance: No Apparent Distress, Obese HEENT: PERRL/EOMI, Pharynx Normal Neck: Full Range of Motion, Non Tender, Supple Respiratory: Chest Non Tender, Lungs Clear, Normal Breath Sounds, Other (VERY DIFFICULT TO HEAR DUE TO THE PATIENTS MORBID OBESITY) Cardiovascular: Regular Rate, Rhythm, Other (EDEMA FROM TOES TO HIS) Capillary Refill: Less Than 3 Seconds Gastrointestinal: non tender, soft Extremity: Other (No open sores or weeping skin becoming a little crinkled due to diminishment in edema although still grade is 3+ with severe chronic venous insufficiency change with tree bark appearance.) Neurologic/Psychiatric: Alert, Other (IRRITABLE) Skin: Other (HEMOSIDERAN PIGMENT CHANGES) Lymphatic: No Adenopathy Results Lab Laboratory Tests 11/28/18 04:51 11/29/18 05:11 Assessment/Plan Assessment/Plan Acute on Chronic respiratory failure -Vent to mask QHS - home vent to mask with goal of prolonging life, improving heart function and decreasing hospitalizations. -Already ordered and [facility] CALDERÓN is working on it -ABG - C02 85 Morbid obesity with OHS -Pt will benefit from home vent to mask Probable Cor pulmonale and diastolic CHF -ECho is limited secondary to body habitus Pulmonary edema -Lasix - continue 40 BID -BNP is 212 Anemia -Monitor LOUIS CABEZAS DO Nov 29, 2018 08:00
[2018-11-29] MEDS: FUROSEMIDE 40 MG/4 ML INJ (LASIX) IV SCH (08:43)
[2018-11-29] MEDS: CATHETER FLUSH 10 ML SYR IV SCH (08:43)
[2018-11-29] MEDS: KCL 20 MEQ TAB (K-DUR) PO SCH (08:44)
[2018-11-29] MEDS: GABAPENTIN 400 MG (NEURONTIN) CAP PO SCH ×2 (08:44→12:45)
[2018-11-29] MEDS ORDERED: FURO40TA4 PO (09:36)
[2018-11-29] MEDS ORDERED: POTA-51 PO (09:36)
--- NOTE | 2018-11-29 09:39 | Discharge Inst-Complex ---
PDI Med Rec & Follow Up Appt. New Medications: Furosemide (Furosemide) 40 Mg Tablet 40 MG PO BID, #60 TAB 6 Refills Potassium Chloride (Potassium Chloride) 20 Meq Tablet.er 20 MEQ PO DAILY, #30 TAB 6 Refills Continued Medications: Docusate Sodium (Colace) 100 Mg Capsule 200 MG PO DAILY, CAP Gabapentin (Gabapentin) 800 Mg Tablet 800 MG PO TID, TAB Hydrocodone/Acetaminophen (Hydrocodon-Acetaminophn 10-325) 1 Each Tablet 2 TAB PO Q6H PRN for PAIN-MODERATE Insulin NPH Hum/Reg Insulin Hm (Novolin 70-30 100 Unit/ml Vial) 100 Unit/1 Ml Vial 100 UNITS SQ HS, EA Ipratropium/Albuterol Sulfate (Iprat-Albut 0.5-3(2.5) mg/3 ml) 3 Ml Ampul.neb 3 ML NEB Q4H PRN for SHORTNESS OF BREATH, EA Levothyroxine Sodium (Levothyroxine Sodium) 50 Mcg Tablet 50 MCG PO DAILY, TAB Multivitamin (Multivitamins) 1 Each Tablet 1 TAB PO DAILY, TAB Nystatin (Nyamyc) 15 Gm Powder TOP BID PRN for GAULDING, EA Potassium Chloride (Potassium Chloride) 20 Meq Tab.er.prt 20 MEQ PO DAILY Discontinued Medications: Furosemide (Furosemide) 40 Mg Tablet 80 MG PO DAILY, TAB Prescription: Transmitted to Pharmacy Activity, Diet and PDI Resume Normal Activity: Yes Discharge Diet: Low Sodium Diet Drink 6-8 Glasses of Fluid/Day: Yes Driving Instructions: No Driving/Refer to DrAnnemarie Return to The Hospital For: any concern for acute worsening of symptoms, chest pain, shortness of breath Symptoms to Reoprt to DrAnnemarie: Appetite Changes, Fever Over 101 Degrees F, Pain/Pressure in Chest, Shortness of Breath For Problems or Questions: Contact Your Physician Infection Signs and Symptoms: Temperature Above 101 F NITO NICOLAS MD Nov 29, 2018 09:39
--- NOTE | 2018-11-29 09:41 | Discharge Summary ---
Diagnosis/Chief Complaint Date of Admission Nov 25, 2018 at 14:27 Date of Discharge Discharge Date: Nov 29, 2018 Discharge Time: 1000 Reason Hospital Visit PT IS A 63 Y/O MALE WHO IS GROSSLY MORBIDLY OBESE - HE HAS NOT BEEN ABLE TO CARE FOR HIMSELF VERY WELL AT HOME WITH HIS PROVIDING A MAJORITY OF HIS DAILY CARE NEEDS. HE WAS LAST SEEN IN 2017 IN THE HOSPITAL, HE IS APPARENTLY UNABLE TO AMBULATE OR GET INTO A VEHICLE TO BE BROUGHT TO THE OFFICE DUE TO HIS WEIGHT AND SEVERE KNEE AND LOWER LEG PAIN. PT REPORTS THAT HE PRESENTED TO THE HOSPITAL DUE TO PAIN IN HIS LOWER EXTREMITIES AND TROUBLE BREATHING. HE REPORTS THAT HE HAS CHRONIC SHORTNESS OF BREATH, AND HE HAS BEEN USING HIS OXYGEN CHRONICALLY PRESCRIBED. Discharge Summary Discharge Physical Examination Allergies: Coded Allergies: aspirin (Verified Adverse Reaction, Intermediate, CHEST PAIN, 01/22/13) Vitals & I&Os Vital Signs Date Time Temp Pulse Resp B/P (MAP) Pulse Ox O2 Delivery O2 Flow Rate FiO2 11/29/18 07:24 95 Nasal Cannula 3.00 11/29/18 02:45 72 20 11/29/18 00:56 97.8 128/76 (93) General Appearance: Alert, Oriented X3, Cooperative HEENT: Atraumatic Respiratory: Clear to Auscultation (DIFFICULT TO HEAR DUE TO THE PATIENT'S OBESITY) Cardiovascular: Regular Rate Abdominal: Normal Bowel Sounds, Soft Extremities: Other (EDEMA BILATERAL LOWER EXTREMITIES FROM THE FEET TO HIS ABDOMEN) Psych/Mental Status: Mental Status NL, Other (FLAT AFFECT, IRRITABLE) Hospital Course Pending Labs Laboratory Tests 11/29/18 05:11: White Blood Count 8.3, Red Blood Count 4.26, Hemoglobin 10.7, Hematocrit 40, Mean Corpuscular Volume 93, Mean Corpuscular Hemoglobin 25, Mean Corpuscular Hemoglobin Concent 27, Red Cell Distribution Width 15.6, Platelet Count 220, Mean Platelet Volume 10.9, Sodium Level 142, Potassium Level 4.0, Chloride Level 90, Carbon Dioxide Level 39, Anion Gap 13, Blood Urea Nitrogen 12, Creatinine 0.87, Estimat Glomerular Filtration Rate > 60, BUN/Creatinine Ratio 14, Glucose Level 134, Calcium Level 8.9, Corrected Calcium 9.6, Total Bilirubin 0.5, Aspartate Amino Transf (AST/SGOT) 16, Alanine Aminotransferase (ALT/SGPT) 7, Alkaline Phosphatase 65, Total Protein 6.3, Albumin 3.1 Discharge Instructions to patient/family Please see electronic discharge instructions given to patient. Discharge Medications Reviewed and agree with Discharge Medication list on patient's Discharge Instruction sheet Clinical Quality Measures DVT/VTE Risk/Contraindication: Risk Factor Score Per Nursin RFS Level Per Nursing on Admit: 4+=Very High NTIO NICOLAS MD Nov 29, 2018 09:41
--- NOTE | 2018-11-29 12:34 | NUR ---
CM/SS, respond to referral. EMS: Paperwork completed for patient EMS transport home later today, updated unit RN to provide for EMS upon arrival. DME: Dr. Flores has communicated with Alysia at [facility] re home vent to mask. Updated Desiree there who will inform Alysia that patient is discharged home today. They will continue to pursue this equipment and set patient up in the home if obtainable.
--- NOTE | 2018-11-29 14:04 | NUR ---
Initial visit: pt is [employer] and his works at [employer]. Strong emotional and spiritual support provided through the pt's family, alevism, and pattern layout worker Jose Joeng. He requested prayer and shared about his trust in God through painful experiences.
[2018-11-29 16:59] VITALS: BP 128/75
== END 2018-11-29 18:20 | disposition home or self-care (01) | DRG 189 ==
LOC: ER 12:25 → EDUNIT# 12:29 → 4TH 14:27
PROVIDERS: ADMIT Family Medicine; ATTEND Family Medicine
DX: J96.22 Acute and chronic respiratory failure with hypercapnia (principal); E87.70 Fluid overload, unspecified; E66.2 Morbid (severe) obesity with alveolar hypoventilation; Z68.45 Body mass index [BMI] 70 or greater, adult; I11.0 Hypertensive heart disease with heart failure; I50.30 Unspecified diastolic (congestive) heart failure; J81.1 Chronic pulmonary edema; I89.0 Lymphedema, not elsewhere classified; Z66 Do not resuscitate; R33.9 Retention of urine, unspecified; I87.2 Venous insufficiency (chronic) (peripheral); I27.81 Cor pulmonale (chronic); D63.8 Anemia in other chronic diseases classified elsewhere; E78.00 Pure hypercholesterolemia, unspecified; E11.42 Type 2 diabetes mellitus with diabetic polyneuropathy; J44.9 Chronic obstructive pulmonary disease, unspecified; M17.11 Unilateral primary osteoarthritis, right knee; M17.12 Unilateral primary osteoarthritis, left knee; M50.20 Other cervical disc displacement, unspecified cervical region; K46.9 Unspecified abdominal hernia without obstruction or gangrene; Z79.4 Long term (current) use of insulin; Z87.891 Personal history of nicotine dependence; Z99.81 Dependence on supplemental oxygen
CPT/HCPCS: 36415; 36600; 71045; 80053; 81000; 82805; 83605; 83735; 83880; 85025; 85027; 85610; 85730; 87040; 87088; 93005; 94640; 94660; 94760; 96374

== ENCOUNTER 2019-12-02 12:12 | Outpatient (CLI) | payer OTHER, MEDICARE ==
[~2019-12-02] VITALS: Ht 177.8 cm; Wt 204.5 kg
[2019-12-02 12:00] VITALS: BP 120/65
[~2019-12-02 12:12] MED LIST changes: +ACHYD1T PO; +DOCU-143 PO; -HYDR-3820 PO; +IPRA3AMP31 NEB; +LEVO50TA6 PO; -MORP-33 PO; +MORP-68 PO; +MULT-567 PO; -MULT1TAB69 PO; +NYST15PO2 TOP; +POTA-51 PO; +POTA20TA15 PO
[2019-12-02] MEDS ORDERED: LIDOCAINE UROJET 2% GEL 10 ML PKG ONE (13:23)
[2019-12-02] MEDS ORDERED: LIDOCAINE UROJET 2% GEL 10 ML PKG TOP ONE (13:30)
--- NOTE | 2019-12-02 13:58 | Diagnostic Imaging Report ---
INDICATION: PICC line placement. TIME OF EXAM: 1:38 PM Correlation is made with prior chest from 11/25/2018. FINDINGS: Right-sided PICC line appears to have the tip overlying the SVC. Heart is enlarged. There is infiltrate or atelectasis right base with right hemidiaphragmatic elevation. Left lung appears to be clear. IMPRESSION: Satisfactory PICC line placement. Dictated by: Dictated on workstation # [id number]
--- NOTE | 2019-12-02 14:15 | NUR ---
AFTER 3 TOTAL ATTEMPTS WITH NICHOLS KIT CATHETER TUBING AND RIGID AND EXTRA RIDIG COUDE TIP'S CATHETER WAS UNSUCCESSFUL. THIS RN PHONE HARLEY MANCUSO AT DR. NICOLAS'S OFFICE AND SHE PHONED NAE THEN INFORMED THIS RN THAT NO CONSULT WITH DR. ZARAGOZA WAS NECESSARY AND THAT THEY HAD JUST WANTED IT FOR A FEW WEEKS. THIS RN INFORMED PATIENT OF THIS AND THAT AFTER PICC RESULT'S WERE READ WE WOULD GET EMS TRANSPORTATION TO TAKE PATIENT HOME.
== END 2019-12-02 15:00 | disposition home or self-care (01) ==
LOC: SDC 12:12
PROVIDERS: ATTEND Family Medicine
DX: I50.9 Heart failure, unspecified (principal); R32 Unspecified urinary incontinence; R60.1 Generalized edema; Z95.828 Presence of other vascular implants and grafts
CPT/HCPCS: 36569; 71045; 76937